=== PATIENT | female | born 1995 | race Caucasian/White ===

== ENCOUNTER 2017-12-29 00:14 | Emergency (ER) | payer BC, SELFPAY ==
[2017-12-29 00:14] VITALS: BP 150/96; PULSE 61; RESP 15; TEMP 36.8; BMI 33.7
--- NOTE | 2017-12-29 00:35 | ED.VISSUMM ---
- ER Visit Summary Date of Service: 12/29/17 Chief Complaint: [Redness and swelling right wrist] History of Present Illness: The patient is a 22 F [presents the emergency department with redness and swelling to the right wrist that started 2 days ago. Patient states that initially she started with what she thought was a pimple to the volar aspect of the wrist. Patient states that she tried to squeeze it and then used tweezers to try to open it up. Patient's noticed increased pain, redness, and swelling. Patient denies any fever. Patient denies any IV drug use.] Physical Examination: [Right wrist-patient has soft tissue swelling to the volar aspect of the ulnar portion of the right wrist. Central area of swelling is excoriated where patient attempted to drain the suspected pimple/abscess. Patient has some diffuse surrounding erythema. No lymphangitic streaking noted. Patient neurovascular intact distally.] Test Results: [None indicated] Emergency Department Course and Treatment: Incision and drainage of the suspected abscess was undertaken by Dr. Bustamante. Area sterilely draped and prepped and using an 11 blade a small incision was made with large amount of purulent debris expressed. Small wick was placed per Dr. Bustamante. Wound initially was anesthetized with lidocaine. Patient was started on Keflex and Bactrim. Clean dressing was applied. [] Treatment Plan: [Patient will be treated with Keflex and Bactrim.] Disposition: [Discharged home in stable condition. Patient advised to follow-up with Dr. Zaid Dumont for a wound check in 3-5 days. Patient to return if increasing pain, redness, swelling, or condition should worsen in any way.] Impression: [Abscess right wrist with incision and drainage] This note was generated with [employer] dictation software. It may contain incorrect words, spelling, and punctuation that were not noted in review of the chart prior to signing ED Disposition - Plan for ED Patient: Chief Complaint: Abscess Referrals: Zaid Dumont MD [Primary Care Provider] -
--- NOTE | 2017-12-29 00:38 | ED.DCSUM_ITS ---
- ER Visit Summary Date of Service: 12/29/17 Chief Complaint: [Redness and swelling right wrist] History of Present Illness: The patient is a 22 F [presents the emergency department with redness and swelling to the right wrist that started 2 days ago. Patient states that initially she started with what she thought was a pimple to the volar aspect of the wrist. Patient states that she tried to squeeze it and then used tweezers to try to open it up. Patient's noticed increased pain, redness, and swelling. Patient denies any fever. Patient denies any IV drug use.] Physical Examination: [Right wrist-patient has soft tissue swelling to the volar aspect of the ulnar portion of the right wrist. Central area of swelling is excoriated where patient attempted to drain the suspected pimple/abscess. Patient has some diffuse surrounding erythema. No lymphangitic streaking noted. Patient neurovascular intact distally.] Test Results: [None indicated] Emergency Department Course and Treatment: Incision and drainage of the suspected abscess was undertaken by Dr. Bustamante. Area sterilely draped and prepped and using an 11 blade a small incision was made with large amount of purulent debris expressed. Small wick was placed per Dr. Bustamante. Wound initially was anesthetized with lidocaine. Patient was started on Keflex and Bactrim. Clean dressing was applied. [] Treatment Plan: [Patient will be treated with Keflex and Bactrim.] Disposition: [Discharged home in stable condition. Patient advised to follow- up with Dr. Zaid Dumont for a wound check in 3-5 days. Patient to return if increasing pain, redness, swelling, or condition should worsen in any way.] Impression: [Abscess right wrist with incision and drainage] This note was generated with [employer] dictation software. It may contain incorrect words, spelling, and punctuation that were not noted in review of the chart prior to signing ED Disposition - Plan for ED Patient: Chief Complaint: Abscess Referrals: Zaid Dumont MD [Primary Care Provider] -
--- NOTE | 2017-12-29 00:38 | ED.DEP ---
ED Disposition - Plan for ED Patient: Chief Complaint: Abscess Instructions: ED Abscess IandD Prescriptions: Cephalexin [Keflex] 500 mg PO Q6 #40 cap Smz/Tmp Ds [Bactrim Ds] 1 tab PO BID #20 tab Referrals: Zaid Dumont MD [Primary Care Provider] - 3-5 Days
[2017-12-29] MEDS: Cephalexin 250 MG Capsule 500 MG PO (01:24)
[2017-12-29] MEDS: Smz/Tmp Ds Tablet 1 TABLET PO (01:25)
[2017-12-29] MEDS: HYDROcodone Bitartrate/Apap 5/325 Tablet PO (01:25)
== END 2017-12-29 01:37 | disposition home or self-care (01) ==
LOC: ED 01:01
PROVIDERS: Emergency Provider Emergency Medicine; Family Provider Family Medicine; PCP Family Medicine
DX: L02.413 Cutaneous abscess of right upper limb (principal)
CPT/HCPCS: 99283

== ENCOUNTER → 2018-10-01 12:02 | Outpatient (CLI) | payer BC, SELFPAY ==
[2018-10-01 14:41] LABS: Pregnancy, Serum, hCG Quali. NEGATIVE Negative (0-9 Nonpreg)
== END ==
PROVIDERS: Family Provider Family Medicine; PCP Family Medicine; Referring Provider Family Medicine; Visit Provider Family Medicine
DX: N91.1 Secondary amenorrhea (principal)
CPT/HCPCS: 36415; 84703

== ENCOUNTER → 2019-07-07 09:56 | Outpatient (CLI) | payer BC, SELFPAY ==
--- NOTE | 2019-07-07 10:00 | RAD_ITS ---
STUDY: X-RAY - ABDOMEN/PELVIS REASON FOR EXAM: Female, 24 years old. patient complains of lower abdominal pain/back pain TECHNIQUE: Lower abdominal back pain COMPARISON: None. FINDINGS: Normal visualized lung bases. There is an unremarkable bowel gas pattern. There is no demonstrated free abdominal air. The visualized liver, spleen and kidneys are grossly normal in size and morphology. Normal soft tissue structures. Normal visualized osseous structures. RAD/Abdomen Single View IMPRESSION: No suspicious intra-abdominal calcifications. Electronically Signed: Madan Mahoney MD (Brooks) at 16:08 EST , Service support ,
[2019-07-07 12:03] LABS: Absolute Lymphocyte Count 2.47 X10^3/uL (0.83-4.51); Absolute Neutrophil Count 5.7 X10^3/uL (2.0-7.7); Basophil# 0.03 X10^3/uL; Basophil% 0.3 % (0-1); Eosinophil# 0.22 X10^3/uL; Eosinophils% 2.3 % (0-5); Hematocrit 44.9 % (37-47); Hemoglobin 15.2 g/dL (12.0-15.0); Lymphocyte # 2.47 X10^3/ul (4.0); Lymphocyte % 26.3 % (19-41); Mean Corp Hgb Conc 33.9 g/dL (32-36); Mean Corpuscular Hgb 29.6 pg (27.0-32.0); Mean Corpuscular Volume 87.4 fL (81-99); Mean Platelet Vol. 10.1 fl (6.2-12.0); Monocyte% 9.6 % (0-10); NRBC Flagged by Analyzer 0 % (0-5); Neutrophil # 5.72 X10^3/uL (2.7-7.7); Neutrophil % 61.1 % (47-70); Platelet Count 256 K/mm3 (150-450); RBC Distribution Width CV 12.3 % (11.6-14.6); RBC Distribution Width SD 39.1 fl (35.1-43.9); Red Blood Count 5.14 M/mm3 (4.2-5.4); White Blood Count 9.4 K/mm3 (4.4-11.0)
[2019-07-07 12:40] LABS: ALB/GLOB Ratio 1.1 RATIO (0.9-2.4); AST(SGOT) 15 U/L (15-37); Alanine Aminotransfer ALT/SGPT 35 U/L (13-56); Albumin, Serum 3.6 g/dL (3.2-5.0); Alkaline Phosphatase 53 U/L (45-117); Anion Gap 7 (5-15); BUN 13 mg/dL (7-18); BUN/Creat Ratio 14.5 RATIO (10-20); Calcium,Total 8.6 mg/dL (8.5-10.1); Chloride 105 mmol/L (98-107); EST Glomerular Filtration Rate 81 mL/min (>60); Est Glom Filt Rate - Afr Amer 98 mL/min (>60); Globulin 3.3 g/dL (2.2-4.2); Glucose 81 mg/dL (74-106); Potassium 3.7 mmol/L (3.5-5.1); Protein, Total 6.9 g/dL (6.4-8.2); Sodium Level 139 mmol/L (136-145)
[2019-07-07 12:47] LABS: Bacteria 0 SEEN /hpf (None Seen); Mucous, Urine 0 SEEN /hpf (<or=2+); Red Blood Cells-Urine 0 SEEN /hpf (0-5); White Blood Cells 0 SEEN /hpf (0-5)
[2019-07-07 13:37] LABS: Color, Urine Yellow (Yellow); Glucose, Dipstick Normal (Normal); Ketone-Dipstick Negative (Negative); Leukocyte Esterase-Dipstick Negative /ul (Negative); Nitrite-Dipstick Negative (Negative); Occult Blood-Urine Negative /ul (Negative); Protein-Dipstick Negative (Negative); Urine Bilirubin Dipstick Negative (Negative); Urine Clarity Sl. Cloudy (Clear); Urine Urobilinogen Normal (Normal)
[2019-07-07 13:50] LABS: Amorphous Sediment 1+ PHOS; Squamous Epithelial Cells - UA 0-5 SEEN /hpf (5-10)
== END ==
PROVIDERS: Family Provider Family Medicine; PCP Family Medicine; Referring Provider Family Medicine; Visit Provider Family Medicine
DX: R10.30 Lower abdominal pain, unspecified (principal); R35.0 Frequency of micturition
CPT/HCPCS: 36415; 74018; 80053; 81001; 85025; 87077; 87086; 87088; 87186

== ENCOUNTER 2019-10-31 09:56 | Emergency (ER) | payer BC, SELFPAY ==
[2019-10-31 09:57] VITALS: BP 117/57; PULSE 79; RESP 17; TEMP 37.1; O2SAT 97; BMI 38.0
--- NOTE | 2019-10-31 10:06 | RAD_ITS ---
STUDY: X-RAY - RIGHT WRIST REASON FOR EXAM: Female, 24 years old. wrist pain after hitting it on a wall yesterday TECHNIQUE: 3 view(s) of the wrist were obtained. COMPARISON: None. FINDINGS: Normal visualized distal radius and ulna. Normal radiocarpal articulation. There is a negative ulnar variance. Normal carpal bones. Normal carpal articulations. Normal carpometacarpal articulation of the thumb. Normal second through fifth carpometacarpal articulations. Normal visualized metacarpal bones. The soft tissue structures are unremarkable. There is no demonstrated acute fracture. RAD/Wrist min 3 Views IMPRESSION: No fracture seen. Electronically Signed: Wale Soto MD at 11:10 EDT , Service support ,
--- NOTE | 2019-10-31 10:19 | ED.VIS.INJ ---
History of Present Illness Chief Complaint: Upper Extremity Injury Informant: Patient Onset: Yesterday Mechanism/Context: Blunt Injury, Fall Quality of Pain: Dull, Aching Location: Right wrist Current Severity: Mild Maximum Severity: Moderate Worsened by: Movement and palpation Relieved by: Rest Associated Symptoms: Negative for: Parasthesias, Weakness, Loss of function, Inability to ambulate, Loss of consciousness Narrative: Patient is a 24-year-old [id number] female who presents with fall on outstretched extremity. She presents with pain right wrist. She localizes pain over the distal radius and ulna. She denies shoulder or elbow pain. She denies pain in her fingers or thumb. She denies paresthesia, anesthesia or motor weakness. She denies any other injury. Prior similar symptoms: No Recent Illness/Hospitalization: No - Past Medical History (1) No significant past medical history Status: Acute Past Medical History - Allergies and Home Meds Allergies/Adverse Reactions: Allergies No Known Allergies Allergy (Verified 10/31/19 09:56) Primary Care Physician: Zaid Garcia MD [Primary Care Provider] - Prior records reviewed: Yes Surgical History: noncontributory Lives: With Family Smoking Status: Never smoker Alcohol: None Drugs: None Review of Systems Musculoskeletal: Reports: Swelling, Extremity Pain. Denies: Myalgias, Arthralgias, Neck pain, Back pain Skin: Denies: Rash, Wounds Neurological: Denies: Weakness, Parasthesia, Numbness Hematologic: Denies: Easy bruising, Easy bleeding Physical Exam Vital Signs/Narrative: Vital Signs Temp Pulse Resp BP Pulse Ox 10/31/19 09:57 98.7 F 79 17 117/57 L 97 Inital Vital Signs reviewed: Yes General: Well nourished, Well developed Head: Normocephalic, Atraumatic Eyes: Perrl, EOMI, - - No subconjunctival hemorrhage noted.. Negative for: Pale conjunctiva, Scleral icterus ENT: No trauma. Negative for: Nasal trauma, Nasal septal hematoma Neck: Nontender, Full ROM Cardiovascular: Regular rate, Regular rhythm, No murmurs Respiratory: No distress, CTA bilaterally Extremeties: There is soft tissue swelling noted right wrist with pain ovation over the distal radius and ulna. There is no pain the patient over the anatomical snuffbox or axial loading of thumb. Median, radial and ulnar function intact. There is no pain the patient over the lateral or medial epicondyle, olecranon process or radial head. There is no pain ovation over the phalanges. There is no pain the patient over the metacarpal bones. Skin: Normal color, No rash Neurological: Alert, Oriented x3, Cranial nerves II-XII grossly intact, Normal Strength, Normal Sensation Psychological: Normal affect, Normal Mood - Glascow Coma Scale Eye Opening: Spontaneous Motor: Obeys Commands Verbal: Oriented Coma Scale Total: 15 Diagnostic/Tx/Re-eval Chest X-Ray - ED: Read by ED Physician - 3 View x-ray of the right wrist was interpreted by me as negative. There is no fracture, subluxation or dislocation. There is no volar fat pad noted. 10/31/19 10:06 Wrist min 3 Views [RAD] Stat - Medical Decision Making X-ray was obtained to evaluate for strain versus contusion versus fracture. ED Disposition - Plan for ED Patient: Disposition: Home or Assisted Living Diagnosis: Contusion of right wrist, initial encounter Instructions: ED Sprain Wrist Referrals: Zaid Garcia MD [Primary Care Provider] - 1 Week if not improving Additional Instructions: 1. Elevate wrist above nose for the next 2 to 3 days. 2. Apply ice 20 to 30 minutes per application 6-8 times a day 3. Take either 4 Advil every 8 hours or 2 Aleve every 12 hours for the next 3 to 5 days for pain.
[2019-10-31 10:30] VITALS: RESP 16
== END 2019-10-31 10:32 | disposition home or self-care (01) ==
LOC: ED 10:25
PROVIDERS: Emergency Provider Emergency Medicine; PCP Family Medicine
DX: S60.211A Contusion of right wrist, initial encounter (principal); W19.XXXA Unspecified fall, initial encounter; Y93.9 Activity, unspecified; Y99.9 Unspecified external cause status
CPT/HCPCS: 73110; 99282

== ENCOUNTER 2019-11-14 16:59 | Emergency (ER) | payer BC, SELFPAY ==
[2019-11-14 17:00] VITALS: BP 147/111; PULSE 92; RESP 16; TEMP 36.4; O2SAT 100; BMI 36.6
--- NOTE | 2019-11-14 17:15 | EKG12_ITS ---
Test Reason : HTN Blood Pressure : / mmHG Vent. Rate : 076 BPM Atrial Rate : 076 BPM P-R Int : 154 ms QRS Dur : 086 ms QT Int : 386 ms P-R-T Axes : 024 044 001 degrees QTc Int : 434 ms Normal sinus rhythm Normal ECG Confirmed by AMBREEN SHEPHERD, NAN ([id number]), desk editor JO-ANN ROIS ([id number]) on 11/16/2019 3:01:10 PM Referred By: CHANDAN Confirmed By:NAN CROOK MD
[2019-11-14 17:17] VITALS: BP 155/96; PULSE 100; RESP 15; O2SAT 97
--- NOTE | 2019-11-14 17:28 | RAD_ITS ---
STUDY: X-RAY CHEST REASON FOR EXAM: Female, 24 years old. CHEST FEELS STRANGE AND BP ELEVATED AT HOME. INTERMITTENT FOR SEVERAL DAYS. TECHNIQUE: Single AP portable view of the chest. COMPARISON: None. FINDINGS: The lungs are clear and expanded. There is no demonstrated pleural abnormality. Normal size heart. Normal mediastinum and parveen. Normal visualized pulmonary arteries. Normal visualized aortic arch and descending thoracic aorta. Normal visualized thoracic spine. Normal visualized ribs, clavicles, and shoulders. There is no demonstrated abnormality of the visualized soft tissue structures of the upper abdomen. RAD/Chest 1 View (Portable) IMPRESSION: Normal x-ray examination of the chest. Electronically Signed: Eduar Warren MD at 19:02 EDT , Service support ,
[2019-11-14 17:32] LABS: Absolute Lymphocyte Count 2.64 X10^3/uL (0.83-4.51); Absolute Neutrophil Count 6.7 X10^3/uL (2.0-7.7); Basophil# 0.04 X10^3/uL; Basophil% 0.4 % (0-1); Eosinophils% 0.9 % (0-5); Hematocrit 45.8 % (37-47); Hemoglobin 15.6 g/dL (12.0-15.0); Lymphocyte # 2.64 X10^3/ul (4.0); Lymphocyte % 24.9 % (19-41); Mean Corp Hgb Conc 34.1 g/dL (32-36); Mean Corpuscular Hgb 29.6 pg (27.0-32.0); Mean Corpuscular Volume 86.9 fL (81-99); Mean Platelet Vol. 9.5 fl (6.2-12.0); Monocyte# 1.09 X10^3/uL; Monocyte% 10.3 % (0-10); NRBC Flagged by Analyzer 0 % (0-5); Neutrophil # 6.69 X10^3/uL (2.7-7.7); Neutrophil % 63.1 % (47-70); Platelet Count 274 K/mm3 (150-450); RBC Distribution Width SD 37.8 fl (35.1-43.9); Red Blood Count 5.27 M/mm3 (4.2-5.4); White Blood Count 10.6 K/mm3 (4.4-11.0)
[2019-11-14 17:41] LABS: Internal QC Validated? YES +Cl - CLEAR BKGD; Pregnancy, Serum, hCG Quali. NEGATIVE Negative
[2019-11-14 17:50] LABS: Anion Gap 8 (5-15); BUN 16 mg/dL (7-18); BUN/Creat Ratio 17.5 RATIO (10-20); Calcium,Total 9.3 mg/dL (8.5-10.1); Chloride 105 mmol/L (98-107); Creatinine, Serum 0.92 mg/dL (0.55-1.02); EST Glomerular Filtration Rate 79 mL/min (>60); Est Glom Filt Rate - Afr Amer 96 mL/min (>60); Estimated Creatinine Clearance 84.11 ml/min; Glucose 98 mg/dL (74-106); Potassium 3.7 mmol/L (3.5-5.1); Sodium Level 140 mmol/L (136-145)
[2019-11-14 17:53] VITALS: BP 141/85; PULSE 77; RESP 17; O2SAT 97
[2019-11-14 18:52] VITALS: BP 146/84; PULSE 87; RESP 19; O2SAT 100
--- NOTE | 2019-11-14 19:09 | ED.DCSUM_ITS ---
- ER Visit Summary Date of Service: 11/14/19 Chief Complaint: Chest pain History of Present Illness: The patient is a 24 F with chest pain for the past 4 days. The pain started out mild and is worsening. It is midsternal and does not radiate. Associated with high blood pressure. Patient has no previous history of high blood pressure. She does not take medications for high blood pressure. Denies any heart history or history of blood clots or leg swelling. Physical Examination: Blood pressure 147/111. Otherwise vitals unremarkable. Alert and oriented. No acute distress. Heart regular. No respiratory distress. Skin appears normal. Calves soft and supple. No edema. Test Results: EKG showed sinus rhythm at a rate of 76. No sign of ischemia or infarction pattern. Hemoglobin 15.6. Chemistry panel normal. Troponin normal. test negative. Chest x-ray normal. Emergency Department Course and Treatment: Patient has what sounds like atypical chest pain. She is low risk for any cardiac disease. PER C-. Nothing to suggest aortic disease. Her work-up was reassuring. Repeat blood pressure went from 155/96-146/84. There is no indication to start blood pressure medications at this time, but she was advised that she may need outpatient medication and will follow-up with primary care. There is no indication for hospitalization for cardiac work-up or any other further emergent process. Outpatient follow- up. Disposition: Discharged Impression: Atypical chest pain, hypertension to be established This note was generated with [employer] software. It may contain incorrect words, spelling, and punctuation that were not noted in review of the chart prior to signing ED Disposition - Plan for ED Patient: Referrals: Zaid Garcia MD [Primary Care Provider] -
--- NOTE | 2019-11-14 19:11 | ED.DEP ---
ED Disposition - Plan for ED Patient: Instructions: ED HBP No Tx Referrals: Zaid Garcia MD [Primary Care Provider] -
[2019-11-14 19:16] VITALS: BP 156/99; PULSE 82; RESP 19; O2SAT 99
== END 2019-11-14 19:16 | disposition home or self-care (01) ==
PROVIDERS: Emergency Provider Emergency Medicine; PCP Family Medicine
DX: R07.89 Other chest pain (principal); I10 Essential (primary) hypertension
CPT/HCPCS: 71045; 80048; 84484; 84703; 85025; 93005; 99283; A4216

== ENCOUNTER → 2019-12-21 16:51 | Outpatient (CLI) | payer BC, SELFPAY ==
[2019-12-21 18:41] LABS: Thyroid Stim Hormone (TSH) 1.94 uIU/mL (0.358-3.74)
== END ==
PROVIDERS: PCP Family Medicine; Referring Provider Family Medicine; Visit Provider Family Medicine
DX: F32.9 Major depressive disorder, single episode, unspecified (principal)
CPT/HCPCS: 36415; 84443

== ENCOUNTER → 2020-02-11 | Outpatient (CLI) | payer BC, SELFPAY | END | disposition home or self-care (01) | PROVIDERS: PCP Family Medicine; Visit Provider Family Medicine | DX: Z20.828 Contact with and (suspected) exposure to other viral communicable diseases (principal) | CPT/HCPCS: 87635; U0003 ==

== ENCOUNTER → 2020-04-20 | Outpatient (CLI) | payer BC, SELFPAY | END | disposition home or self-care (01) | LOC: MFPLAB 10:51 → LABSPEC 10:53 | PROVIDERS: PCP Family Medicine; Referring Provider Family Medicine; Visit Provider Family Medicine | DX: J06.9 Acute upper respiratory infection, unspecified (principal) | CPT/HCPCS: 87635; U0003 ==

== ENCOUNTER → 2020-05-25 | Outpatient (CLI) | payer BC, SELFPAY | END | disposition home or self-care (01) | LOC: LABSPEC 15:24 | PROVIDERS: PCP Family Medicine; Visit Provider Nurse Practitioner Adult Health | DX: R05 Cough (principal); Z20.828 Contact with and (suspected) exposure to other viral communicable diseases | CPT/HCPCS: 87633; 87635; U0003 ==

== ENCOUNTER → 2020-06-16 18:07 | Outpatient (CLI) | payer BC, SELFPAY ==
--- NOTE | 2020-06-16 18:19 | CT_ITS ---
STUDY: CT ABDOMEN AND PELVIS WITHOUT CONTRAST REASON FOR EXAM: Female, 25 years old. Left flank pain radiating into the left groin. Microscopic hematuria. RADIATION DOSAGE (If Supplied By Facility): CTDIvol = ( 14.80 ) mGy, DLP = ( 777.85 ) mGycm TECHNIQUE: Transaxial images were obtained from the dome of the diaphragm to the symphysis pubis without oral contrast, and without intravenous contrast. Sagittal and coronal images were reconstructed. Individualized dose optimization techniques were used for this CT. COMPARISON: 11/19/2014. FINDINGS: The visualized lung bases are unremarkable. The visualized portions of the heart are within normal limits. Normal liver. Normal gallbladder and extrahepatic biliary system. The spleen is borderline enlarged but without mass. Normal pancreas. Normal bilateral adrenal glands. There is a 3 mm calcification in the upper pole of the otherwise normal right kidney. Normal left kidney. Normal bilateral ureters. Normal visualized stomach. Normal small intestine. Normal colon. The appendix is visualized and appears normal. Normal abdominal aorta. Normal inferior vena cava. Normal retroperitoneum. Normal urinary bladder. Internal uterus and ovaries. There is no pelvic lymphadenopathy. No free air or free fluid is seen within the peritoneal cavity. Normal abdominal wall. Normal osseous structures. CT/Abdomen/Pelvis without Cont IMPRESSION: 1. Nonobstructing right renal calculus. There is no other evidence of renal, ureteral or urinary bladder abnormality. 2. Borderline splenomegaly. 3. Otherwise normal CT of the abdomen and pelvis. Electronically Signed: Oc Daniels DO at 19:07 EST Tel [phone], Service support ,
== END ==
PROVIDERS: PCP Family Medicine; Visit Provider Family Medicine
DX: R10.9 Unspecified abdominal pain (principal)
CPT/HCPCS: 74176

== ENCOUNTER → 2020-06-17 | Outpatient (CLI) | payer BC, SELFPAY | END | disposition home or self-care (01) | LOC: LABSPEC 10:38 | PROVIDERS: PCP Family Medicine; Referring Provider Family Medicine; Visit Provider Family Medicine | DX: R10.9 Unspecified abdominal pain (principal) | CPT/HCPCS: 87077; 87086; 87088; 87186 ==

== ENCOUNTER → 2020-07-11 13:35 | Outpatient (CLI) | payer BC, SELFPAY | PROVIDERS: PCP Family Medicine; Visit Provider Family Medicine | DX: Z20.822 Contact with and (suspected) exposure to COVID-19 (principal) | CPT/HCPCS: 87635; U0005; U0003 ==

== ENCOUNTER 2020-11-08 18:41 | Emergency (ER) | payer BC, SELFPAY ==
[2020-11-08 18:42] VITALS: BP 165/104; PULSE 88; RESP 16; TEMP 36.3; BMI 39.9
--- NOTE | 2020-11-08 20:44 | EDS_ITS ---
HPI History of Present Illness Chief Complaint: Eye Problem Informant: patient Onset/Context/Timing Location: Left Eye Onset: Today Context: Sudden Onset Timing: Continuous Current Severity: Severe Worsened by: Concern that the antibiotic drops she was prescribed made it worse Relieved by: Nothing Associated Symptoms Associated Symptoms - Eyes: Burning, Pain and Redness Visual Changes: left: Blurred vision History of injury: No Visual correction: Corrective contact lenses (Patient left her contacts in for 2 days. She does not have extended wear contacts.) Narrative Narrative: Patient is a 25-year-old woman who presents because of eye pain. She did not remove her contacts for 2 days. She informed that she saw a paint mixer machine who prescribed contact lenses. She states she called the urgent care. She states she was called in medicine. She states she had increased pain after instilling 1 drop in the left eye. She does not know the name of the medicine. Her significant other/ went home to get the name of the medicine. Patient denies photophobia. She does complain of blurred vision which improves with blinking. She also reports redness to the eye. She has no other complaints. Prior similar symptoms: No Recent Illness/Hospitalization: No [facility] Medical History (Updated 11/08/20 @ 20:[address] Cornelio Bustamante MD) Anxiety no medical history Home Medications escitalopram oxalate 10 mg PO DAILY 11/08/20 [History Last Taken Unknown] Allergy/AdvReac Type Severity Reaction Status Date / Time No Known Allergies Allergy Verified 11/08/20 18:44 no significant family history no surgical history Social History (Updated 11/08/20 @ 20:[address] Cornelio Bustamante MD) Smoking Status: Never smoker alcohol intake: current alcohol intake frequency: a few times a month substance use type: does not use ROS ROS ED Constitutional Constitutional ED: Denies chills, fever(s), subjective or sweats Eyes Eyes: Reports blurry vision and change in vision; Denies diplopia ENT ENT ED: Denies ear pain, rhinorrhea or sore throat Gastrointestinal Gastrointestinal: Denies nausea or vomiting Neurologic Neurologic: Denies headache(s) Hematologic/Lymphatic Hematologic/Lymphatic: Denies easy bleeding or easy bruising EXAM Physical Exam Const Vital Signs: 11/08/20 18:42 Temperature 97.4 F L Temperature Source Temporal Pulse Rate 88 Respiratory Rate 16 Blood Pressure 165/104 H Blood Pressure Mean 124 Positive well nourished, well developed and obese General Appearance ED: well developed Nutritional Appearance: obese HEENT atraumatic Eyes General Eye ED: Yes normal light reflex; Negative for enophthalmos, exophthalmos, proptosis, pale conjunctiva or scleral icterus Visual Acuity: visual acuity right eye 20 and visual acuity left eye 200 Alignment: alignment normal Periorbital: periorbital findings normal Eyelid: eyelids normal Conjunctiva: Negative for conjunctiva normal and conjunctiva abnormal left Details: injection Sclera: sclera normal Cornea: cornea abnormal Positive for left Cornea - Left Eye: Positive for ulceration Details: Positive for at clock position (5:00 1 mm from the limbal border circular consistent with injury due to contact lens) Pupil: PERRL and accommodation reflex normal EOM: EOM abnormal; Negative for nystagmus Direct Ophthalmoscopy: anterior chamber normal and No photophobia Slit Lamp: slit lamp exam performed with fluorescein, lids/lashes/lacrimal sys tem normal appearing, conjunctiva/sclera diffuse conjunctiva injection, foreign body, discharge and chemosis and cornea ulcers (Circular consistent with injury due to contact) Neck no lymphadenopathy, supple and no JVD Resp normal respiratory effort Cardio regular rate and regular rhythm Neuro oriented x3 and CN's II-XII intact bilaterally Sensorium / Orientation: alert Skin no wounds Lesions: no lesions Rashes: no rashes MDM MDM MDM Narrative Medical decision making narrative: Concern patient have a allergic reaction to the drops she was prescribed. After reviewing the medication she received it was noted she is on a quinolone. Discharge Plan Triage Chief Complaint: Eye Problem ED Provider: Cornelio Bustamante Dx/Rx/DC Orders Clinical Impression: Corneal ulcer of left eye Instructions: ED Corneal Ulcer Prescriptions: No Action escitalopram oxalate 10 mg Tablet 10 mg PO DAILY RF: 0 Primary Care Provider: Zaid Garcia Referrals: Zaid Garcia MD [Primary Care Provider] - Uche Ji MD [STAFF PHYSICIAN] - 1 Day for another exam Activity Restrictions/Additional Instructions: Instill 1 drop of the antibiotic drop every 1-2 hours while awake until you go to bed this evening. Go to Dr. Ji's office in the morning, 8 AM for repeat examination Disposition Disposition: Home, self care
[2020-11-08] MEDS: Fluorescein 1 MG STRIP 1 STRIP LEFT EYE (20:45)
[2020-11-08] MEDS: Tetracaine 0.5% Ophthalmic Bottle 1 DRP LEFT EYE (20:45)
== END 2020-11-08 21:11 | disposition home or self-care (01) ==
PROVIDERS: Emergency Provider Emergency Medicine; PCP Family Medicine
DX: H16.002 Unspecified corneal ulcer, left eye (principal); F41.9 Anxiety disorder, unspecified; E66.9 Obesity, unspecified; Z79.899 Other long term (current) drug therapy
CPT/HCPCS: 99283

== ENCOUNTER 2021-10-17 15:12 | Outpatient (CLI) | payer BC, SELFPAY ==
--- NOTE | 2021-10-17 15:14 | US_ITS ---
STUDY: FIRST TRIMESTER OBSTETRICAL ULTRASOUND REASON FOR EXAM: Female, 26 years old. Vaginal bleeding. TECHNIQUE: Transvaginal US was obtained to better visualized the ovaries. TECHNICAL QUALITY: Adequate. PRIOR ULTRASOUND: None. FINDINGS: There is visualization of a single gestational sac in a normal intrauterine position. The mean sac diameter (MSD) measures 33 mm, indicating an estimated gestational age (EGA) of 8 weeks, 3 days. The gestational sac shape is within normal limits. There is a visualized yolk sac. The yolk sac measures 4 mm. The placenta is non-visualized. Due to early gestation, the placenta is not seen. There is visualization of a live embryo. The crown-rump length (CRL) measures 15 mm, indicating an estimated gestational age (EGA) of 7 weeks, 5 days. There is demonstrated cardiac activity with a heart rate of 150 bpm. The estimated gestation age (EGA) by LMP is 7 weeks, 4 days. The estimated date of delivery (ALLA) by LMP is 06.01.22. The estimated gestation age (EGA) by US is 8 weeks, 0 days. The estimated date of delivery (ALLA) by US is 05.29.22. The uterus measures 10.8 x 7.1 cm. There is no demonstrated uterine fibroid. The cervix is closed. The right ovary measures in cm: 4.7 x 3.4. There is 20mm right ovarian cyst. There is no visualized right adnexal mass or complex lesion. The left ovary measures 3.9 x 2.2 cm. There is no left ovarian cyst. There is no visualized left adnexal mass or complex lesion. There is no fluid in the cul de sac. US/Transvaginal w/Preg US IMPRESSION: There is a single live intrauterine with a heart rate of 150 bpm. The estimated gestation age (EGA) by US is 8 weeks, 0 days. The estimated date of delivery (ALLA) by US is 05.29.22. Electronically Signed: Lopez Felder MD at 18:32 EDT ,
== END 2021-10-17 23:59 | disposition home or self-care (01) ==
LOC: US 15:12
PROVIDERS: PCP Family Medicine; Visit Provider Family Medicine
DX: O46.91 Antepartum hemorrhage, unspecified, first trimester (principal); Z3A.08 8 weeks gestation of pregnancy
CPT/HCPCS: 76817

== ENCOUNTER → 2021-11-07 | Outpatient (CLI) | payer BC, SELFPAY ==
[2021-11-07 16:10] LABS: Absolute Lymphocyte Count 2.14 X10^3/uL (0.83-4.51); Basophil# 0.02 X10^3/uL; Basophil% 0.2 % (0-1); Eosinophil# 0.11 X10^3/uL; Eosinophils% 1.1 % (0-5); Hematocrit 38.4 % (37-47); Hemoglobin 13.2 g/dL (12.0-15.0); Lymphocyte # 2.14 X10^3/ul (0.83-4.51); Lymphocyte % 21.1 % (19-41); Mean Corp Hgb Conc 34.4 g/dL (32-36); Mean Corpuscular Hgb 29.6 pg (27.0-32.0); Mean Corpuscular Volume 86.1 fL (81-99); Mean Platelet Vol. 9.7 fl (6.2-12.0); Monocyte% 7.9 % (0-10); NRBC Flagged by Analyzer 0 % (0-5); Neutrophil # 7.03 X10^3/uL (2.7-7.7); Neutrophil % 69.2 % (47-70); Platelet Count 210 K/mm3 (150-450); RBC Distribution Width CV 13.4 % (11.6-14.6); RBC Distribution Width SD 41.9 fl (35.1-43.9); Red Blood Count 4.46 M/mm3 (4.2-5.4); White Blood Count 10.2 K/mm3 (4.4-11.0)
[2021-11-07 16:45] LABS: Glucose Challenge Gest 1H 50g 109 mg/dL (70-140)
[2021-11-07 16:58] LABS: NATERA MAILED SPECIMEN
[2021-11-08 09:27] LABS: HIV - WCH Non-Reactive (Nonreactive); Hepatitis B Surface Antigen Non-Reactive (Nonreactive); Hepatitis C Antibody Non-Reactive (Nonreactive); Rubella IgG Reactive (Nonreactive); Syphilis Antibodies Non-reactive
== END | disposition home or self-care (01) ==
LOC: PAVLAB 15:09
PROVIDERS: Referring Provider Obstetrics & Gynecology; Visit Provider Obstetrics & Gynecology
DX: Z34.00 Encounter for supervision of normal first pregnancy, unspecified trimester (principal)
CPT/HCPCS: 36415; 82950; 85025; 86703; 86762; 86780; 86803; 86850; 86900; 86901; 87340

== ENCOUNTER → 2021-11-07 | Outpatient (CLI) | payer BC, SELFPAY ==
[2021-11-07 18:30] LABS: Amphetamine Urine VISTA NEGATIVE (<1000 ng/mL); Barbiturate Urine VISTA NEGATIVE (< 200 ng/mL); Benzodiazepine Urine VISTA NEGATIVE (< 200 ng/mL); Cocaine Urine VISTA NEGATIVE (< 300 ng/mL); Ecstacy Urine VISTA NEGATIVE (< 500 ng/mL); Methadone Urine VISTA NEGATIVE (< 300 ng/mL); PCP Urine VISTA NEGATIVE (< 25 ng/mL); THC Urine VISTA NEGATIVE (< 50 ng/mL); Vista UDS pH Range 6
[2021-11-10 00:07] LABS: Chlamydia By Nucleic Acid AMP Negative (Negative)
[2021-11-10 08:39] LABS: Gonococcus By Nucleic Acid AMP Negative (Negative)
== END | disposition home or self-care (01) ==
LOC: LABSPEC 16:19
PROVIDERS: Referring Provider Obstetrics & Gynecology; Visit Provider Obstetrics & Gynecology
DX: Z34.00 Encounter for supervision of normal first pregnancy, unspecified trimester (principal)
CPT/HCPCS: 80307; 87077; 87086; 87088; 87186; 87491; 87591

== ENCOUNTER → 2022-01-16 | Outpatient (CLI) | payer BC, SELFPAY ==
--- NOTE | 2022-01-16 12:24 | US_ITS ---
STUDY: SECOND AND THIRD TRIMESTER OBSTETRICAL ULTRASOUND REASON FOR EXAM: Female, 26 years old . anatomy. LMP: 08/25/2021 TECHNIQUE: Transabdominal TECHNICAL QUALITY: Adequate. PRIOR ULTRASOUND: Comparison is made with prior study dated 10/17/2021. FINDINGS: There is a single intrauterine fetus. The fetus is in a breech presentation. There is demonstrated cardiac activity with a heart rate of 138 bpm. There is a normal amniotic fluid volume. The largest amniotic fluid pocket measures 3.4 cm x 3.4 cm. The amniotic fluid index (URBAN) is within normal limits. The placenta is posterior in location and is not low lying. There are Grade 0 placental changes. The cervix measures 4.4 cm in length. The adnexal regions are not visualized. BIOMETRY: BPD: 4.9 cm: 20 weeks, 5 days HC: 19.08 cm: 21 weeks, 2 days AC: 16.23 cm: 21 weeks, 2 days FL: 3.55 cm: 21 weeks, 1 days CI: 73.6% FL/BPD: 72.4% FL/HC: FL/AC: 21.9% HC/AC: 1.18 age by current US: 21 weeks, 1 days. ALLA by current US: 05/28/2022. Estimated weight: 409 grams, +/- 61 grams, 78.5 %. age by prior US: 21 weeks, 0 days. ALLA by prior US: 05/29/2022. Age by LMP: 20 weeks, 4 days. ALLA by LMP: 06/01/2022. ANATOMY: Gender: Male Cranium: Normal lateral ventricles. Normal choroid plexus. Normal cerebellum. Normal cisterna magna. Normal face, nose and lips. Chest: Normal 4-chamber heart. Abdomen/Pelvis: Normal diaphragm. Normal stomach. Normal abdominal wall. Normal cord insertion. Normal 3 vessel cord. Normal kidneys. Normal bladder. Spine: Normal cervical spine. Normal thoracic spine. Normal lumbar spine. Normal sacrum. Extremities: Normal bilateral upper extremities. Normal bilateral lower extremities. US/OB Anatomy Scan IMPRESSION: Single live intrauterine gestation with mean gestational age of 21 weeks. The measurements obtained today fall within the normal expected range. Electronically Signed: Bryan Link MD at 9:49 EDT ,
== END | disposition home or self-care (01) ==
LOC: OPUS 12:22
PROVIDERS: Referring Provider Obstetrics & Gynecology; Visit Provider Obstetrics & Gynecology
DX: Z34.02 Encounter for supervision of normal first pregnancy, second trimester (principal); Z3A.21 21 weeks gestation of pregnancy
CPT/HCPCS: 76805; 76817

== ENCOUNTER → 2022-02-23 | Outpatient (CLI) | payer BC, SELFPAY ==
[2022-02-23 14:31] LABS: Absolute Lymphocyte Count 2.13 X10^3/uL (0.83-4.51); Absolute Neutrophil Count 8.5 X10^3/uL (2.0-7.7); Basophil# 0.03 X10^3/uL; Basophil% 0.3 % (0-1); Eosinophil# 0.14 X10^3/uL; Eosinophils% 1.2 % (0-5); Hematocrit 36.6 % (37-47); Hemoglobin 12.3 g/dL (12.0-15.0); Lymphocyte # 2.13 X10^3/ul (0.83-4.51); Lymphocyte % 18.3 % (19-41); Mean Corp Hgb Conc 33.6 g/dL (32-36); Mean Corpuscular Hgb 30.1 pg (27.0-32.0); Mean Corpuscular Volume 89.7 fL (81-99); Mean Platelet Vol. 10.2 fl (6.2-12.0); Monocyte# 0.75 X10^3/uL; Monocyte% 6.4 % (0-10); NRBC Flagged by Analyzer 0 % (0-5); Neutrophil # 8.45 X10^3/uL (2.7-7.7); Neutrophil % 72.4 % (47-70); Platelet Count 197 K/mm3 (150-450); RBC Distribution Width CV 14.5 % (11.6-14.6); RBC Distribution Width SD 46.9 fl (35.1-43.9); Red Blood Count 4.08 M/mm3 (4.2-5.4); White Blood Count 11.7 K/mm3 (4.4-11.0)
[2022-02-23 14:58] LABS: Glucose Challenge Gest 1H 50g 130 mg/dL (70-140)
== END | disposition home or self-care (01) ==
LOC: LAB 13:16
PROVIDERS: Referring Provider Nurse Practitioner Women's Health; Visit Provider Nurse Practitioner Women's Health
DX: Z34.90 Encounter for supervision of normal pregnancy, unspecified, unspecified trimester (principal)
CPT/HCPCS: 36415; 82950; 85025

== ENCOUNTER 2022-03-22 15:12 | Outpatient (CLI) | payer BC, SELFPAY ==
[2022-03-22 15:28] VITALS: BMI 46.3
[2022-03-22 15:29] VITALS: TEMP 37.1; O2SAT 98
[2022-03-22 15:37] VITALS: BP 127/60; PULSE 94
[2022-03-22 16:13] LABS: ROM Internal Control Test YES-OK TO RESULT pt. (Internal QC); ROM Patient Test Negative (Negative)
--- NOTE | 2022-03-22 16:59 | OB.TRI.PN ---
Progress Notes Progress Note: Patient presents for triage evaluation secondary to possible ROM FHT: 140 Moderate variability reactive no decelerations category I tracing [place]: no regular Contractions Assessment and plan: intact membranes no labor Reactive NST, reassuring maternal and status patient discharged to home to follow-up as scheduled. See problem list details for additional plan information. Laboratory Studies: Laboratory Tests 03/22/22 Range/Units 15:40 Vag Amniotic Fld Detect Negative (Negative) Charges/Coding Procedures Urinary/Genital [id number]: [id number] non-stress test Interp
--- NOTE | 2022-03-22 17:01 | NURSING ---
Keep already scheduled apt for 03/30/2022
== END 2022-03-22 17:05 | disposition home or self-care (01) ==
LOC: WPOUT 15:15 → WP 15:15
PROVIDERS: Referring Provider Obstetrics & Gynecology; Visit Provider Obstetrics & Gynecology
DX: Z34.90 Encounter for supervision of normal pregnancy, unspecified, unspecified trimester (principal)
CPT/HCPCS: 59025; 59050; 84112; 99218; G0378

== ENCOUNTER → 2022-03-30 | Outpatient (CLI) | payer BC, SELFPAY ==
[2022-03-30 17:03] LABS: T4 Free Direct 0.91 ng/dL (0.76-1.46); Thyroid Stim Hormone (TSH) 2.59 uIU/mL (0.358-3.74)
== END | disposition home or self-care (01) ==
LOC: LAB 16:04
PROVIDERS: Referring Provider Obstetrics & Gynecology; Visit Provider Obstetrics & Gynecology
DX: O99.210 Obesity complicating pregnancy, unspecified trimester (principal); E66.9 Obesity, unspecified; Z13.29 Encounter for screening for other suspected endocrine disorder; Z3A.00 Weeks of gestation of pregnancy not specified
CPT/HCPCS: 36415; 84439; 84443

== ENCOUNTER → 2022-04-06 | Outpatient (CLI) | payer BC, SELFPAY ==
--- NOTE | 2022-04-06 13:16 | US_ITS ---
STUDY: SECOND AND THIRD TRIMESTER OBSTETRICAL ULTRASOUND REASON FOR EXAM: Female, 27 years old growth LMP: 08/25/2021. TECHNIQUE: Transabdominal TECHNICAL QUALITY: Limited. Examination limited due to obesity. PRIOR ULTRASOUND: Comparison is made with prior examination dated 01/16/2022. FINDINGS: There is a single intrauterine fetus. The fetus is in a cephalic presentation. There is demonstrated cardiac activity with a heart rate of 136 bpm. There is a normal amniotic fluid volume. The largest amniotic fluid pocket measures 4.9 cm. The amniotic fluid index (URBAN) is 10.4 cm. The placenta is fundal and posterior in location. There are Grade 1 placental changes. The cervix measures 4.7 cm in length. The adnexal regions are not visualized. BIOMETRY: BPD: 8.48 cm: 34 weeks, 1 days HC: 31.18 cm: 34 weeks, 6 days AC: 33.68 cm: 37 weeks, 4 days FL: 6.36 cm: 32 weeks, 6 days CI: 81% FL/BPD: 75% FL/HC: FL/AC: 19% HC/AC: 0.93 age by current US: 34 weeks, 1 days. ALLA by current US: 05/17/2022. Estimated weight: 2794 grams, +/- 490 grams, 99 %. age by prior US: 32 weeks, 3 days. ALLA by prior US: 05/28/2022. Age by LMP: 32 weeks, 0 days. ALLA by LMP: 06/01/2022. US/OB Limited With Biometrics IMPRESSION: Single live uterine gestation with a mean gestational age of 32 weeks and 3 days. Today''s measurements places the fetus in the 99th percentile. Electronically Signed: Bryan Link MD at 15:04 EDT ,
== END | disposition home or self-care (01) ==
LOC: OPUS 13:15
PROVIDERS: PCP Family Medicine; Visit Provider Obstetrics & Gynecology
DX: Z34.03 Encounter for supervision of normal first pregnancy, third trimester (principal); Z3A.34 34 weeks gestation of pregnancy
CPT/HCPCS: 76816

== ENCOUNTER 2022-04-12 08:10 | Outpatient (CLI) | payer BC, SELFPAY ==
[2022-04-12 08:37] VITALS: BMI 46.6
[2022-04-12 08:42] VITALS: BP 121/59; PULSE 92; TEMP 36.8
--- NOTE | 2022-04-16 02:32 | OB.TRI.PN ---
Progress Notes Date of Service: 04/12/22 Progress Note: Patient presents for triage evaluation secondary to decreased movement1 FHT: 125 Moderate variability reactive no decelerations category I tracing [place]: no regular Contractions Assessment and plan: decreased movement Reactive NST, reassuring maternal and status patient discharged to home to follow-up as scheduled. See problem list details for additional plan information. Charges/Coding Procedures Urinary/Genital [id number]: 20489-24 non-stress test Interp Assessment & Plan (1) Decreased movements in third trimester: COMMENT: NST in triage 04/12
== END 2022-04-12 10:30 | disposition home or self-care (01) ==
LOC: WPOUT 08:18 → WP 08:18
PROVIDERS: PCP Family Medicine; Referring Provider Obstetrics & Gynecology; Visit Provider Obstetrics & Gynecology
DX: O36.8130 Decreased fetal movements, third trimester, not applicable or unspecified (principal); Z79.899 Other long term (current) drug therapy; Z3A.00 Weeks of gestation of pregnancy not specified
CPT/HCPCS: 59025; 59050; 99218; G0378

== ENCOUNTER → 2022-05-04 | Outpatient (CLI) | payer BC, SELFPAY ==
--- NOTE | 2022-05-04 13:20 | US_ITS ---
STUDY: SECOND AND THIRD TRIMESTER OBSTETRICAL ULTRASOUND REASON FOR EXAM: Female, 27 years old growth LMP: 08/25/2021. TECHNIQUE: Transabdominal TECHNICAL QUALITY: Adequate. PRIOR ULTRASOUND: Comparison is made with prior study dated 04/06/2022. FINDINGS: There is a single intrauterine fetus. The fetus is in a cephalic presentation. There is demonstrated cardiac activity with a heart rate of 132 bpm. There is a normal amniotic fluid volume. The largest amniotic fluid pocket measures 7.2 cm. The amniotic fluid index (URBAN) is 12.0 cm. The placenta is fundal and posterior in location. There are Grade 2 placental changes. The cervix measures 3.5 cm in length. The adnexal regions are not visualized. BIOMETRY: BPD: 9.45 cm: 38 weeks, 4 days HC: 33.5 cm: 38 weeks, 2 days AC: 38.5 cm: Off the chart. FL: 7.41 cm: 37 weeks, 6 days CI: 83% FL/BPD: 78% FL/HC: FL/AC: 19% HC/AC: 0.87 age by current US: 38 weeks, 1 days. ALLA by current US: 05/17/2022. Estimated weight: 4226 grams, +/- 634 grams, 99 %. age by prior US: 38 weeks, 1 days. ALLA by prior US: 05/17/2020. Age by LMP: 36 weeks, 0 days. ALLA by LMP: 06/01/2022. US/OB Limited With Biometrics IMPRESSION: Single live intrauterine gestation with a mean gestational age of 38 weeks and 1 day. The measurements obtained today following thinned and the 99th percentile. Electronically Signed: Bryan Link MD at 13:52 EDT ,
[2022-05-04 18:05] LABS: Glucose Challenge Gest 1H 50g 168 mg/dL (70-140)
== END | disposition home or self-care (01) ==
PROVIDERS: PCP Family Medicine; Referring Provider Obstetrics & Gynecology; Visit Provider Obstetrics & Gynecology
DX: Z34.93 Encounter for supervision of normal pregnancy, unspecified, third trimester (principal); Z3A.36 36 weeks gestation of pregnancy
CPT/HCPCS: 36415; 76816; 82950; 87081

== ENCOUNTER → 2022-05-09 | Outpatient (CLI) | payer BC, SELFPAY ==
[2022-05-09 11:17] LABS: Glucose GTT-Gestation. Fasting 89 mg/dL (<105)
[2022-05-09 12:35] LABS: Glucose GTT-Gestational 1 Hr 222 mg/dL (<190)
[2022-05-09 13:18] LABS: Glucose GTT-Gestational 2 Hr 200 mg/dL (<165)
[2022-05-09 13:54] LABS: Glucose GTT-Gestational 3 Hr 88 L (<145)
== END | disposition home or self-care (01) ==
LOC: LAB 09:45
PROVIDERS: PCP Family Medicine; Visit Provider Obstetrics & Gynecology
DX: Z13.1 Encounter for screening for diabetes mellitus (principal)
CPT/HCPCS: 36415; 82951; 82952

== ENCOUNTER → 2022-05-11 | Outpatient (CLI) | payer BC, SELFPAY ==
--- NOTE | 2022-05-11 14:20 | US_ITS ---
STUDY: OBSTETRICAL ULTRASOUND - BIOPHYSICAL PROFILE REASON FOR EXAM: Female, 27 years old obesity in LMP: 08/25/2021. PRIOR ULTRASOUND: Comparison is made with prior study dated 05/04/2022. TECHNIQUE: Transabdominal TECHNICAL QUALITY: Adequate. FINDINGS: There is a single intrauterine fetus. The fetus is in a cephalic presentation. There is demonstrated cardiac activity with a heart rate of 136 bpm. There is a normal amniotic fluid volume. The largest amniotic fluid pocket measures 5.9 cm x 1.7 cm. The amniotic fluid index (URBAN) is 16.9 cm. The placenta is fundal and posterior in location. There are Grade 2 placental changes. Age by LMP: 37 weeks, 0 days. ALLA by LMP: 06/01/2022. age by prior US: 39 weeks, 1 days. ALLA by prior US: 05/17/2022. BIOPHYSICAL PROFILE: Breathing Movements (FBM): 2 Gross Body Movements (GBM): 2 Tone (FT): 2 Amniotic Fluid Volume (AFV): 2 TOTAL SCORE: 8 / 8 US/Biophysical Prof W/O Non Stres IMPRESSION: Normal biophysical profile of 8/8. Electronically Signed: Bryan Link MD at 12:40 EST ,
== END | disposition home or self-care (01) ==
PROVIDERS: PCP Family Medicine; Referring Provider Obstetrics & Gynecology; Visit Provider Obstetrics & Gynecology
DX: O99.213 Obesity complicating pregnancy, third trimester (principal); E66.9 Obesity, unspecified; Z3A.39 39 weeks gestation of pregnancy
CPT/HCPCS: 76819

== ENCOUNTER → 2022-05-18 | Outpatient (CLI) | payer BC, SELFPAY ==
--- NOTE | 2022-05-18 16:00 | US_ITS ---
STUDY: OBSTETRICAL ULTRASOUND - BIOPHYSICAL PROFILE REASON FOR EXAM: Female, 27 years old obesity- well being LMP: PRIOR ULTRASOUND: None. TECHNIQUE: Transabdominal TECHNICAL QUALITY: Adequate. FINDINGS: There is a single intrauterine fetus. The fetus is in a cephalic presentation. There is demonstrated cardiac activity with a heart rate of 129 bpm. There is a normal amniotic fluid volume. The largest amniotic fluid pocket measures 4.8 cm. The amniotic fluid index (URBAN) is 16 cm. The placenta is fundal There are Grade 2 placental changes. Age by LMP: 38 weeks, 0 days. ALLA by LMP: 06/01/2022. BIOPHYSICAL PROFILE: Breathing Movements (FBM): 2 Gross Body Movements (GBM): 2 Tone (FT): 2 Amniotic Fluid Volume (AFV): 2 TOTAL SCORE: 8 / 8 US/Biophysical Prof W/O Non Stres IMPRESSION: Normal biophysical profile of 02/12. Electronically Signed: Gregorio Holliday MD at 17:21 EST ,
== END | disposition home or self-care (01) ==
PROVIDERS: PCP Family Medicine; Referring Provider Obstetrics & Gynecology; Visit Provider Obstetrics & Gynecology
DX: O99.210 Obesity complicating pregnancy, unspecified trimester (principal)
CPT/HCPCS: 76819

== ENCOUNTER 2022-05-21 06:37 | Inpatient (IN) | payer BC, SELFPAY ==
[2022-05-21] VITALS (21 sets, daily range): BP systolic 103–146; BP diastolic 58–88; PULSE 66–104; RESP 14–20; TEMP 36.3–37.2; O2SAT 77–100; BMI 46.5
[2022-05-21] MEDS: Acetaminophen 500 MG Tablet 1000 MG PO ×4 (06:02→23:30)
[2022-05-21] MEDS: Lactated Ringers 1,000 ML 999 ML IV (06:03)
[2022-05-21 06:15] LABS: Color, Urine Yellow (Yellow); Glucose, Dipstick Normal (Normal); Ketone-Dipstick Negative (Negative); Leukocyte Esterase-Dipstick 100 /ul (Negative); Nitrite-Dipstick Negative (Negative); Occult Blood-Urine 250 /ul (Negative); Protein-Dipstick Negative (Negative); Urine Bilirubin Dipstick Negative (Negative); Urine Clarity Clear (Clear); Urine Urobilinogen Normal (Normal)
[2022-05-21 06:19] LABS: Absolute Lymphocyte Count 2.58 X10^3/uL (0.83-4.51); Absolute Neutrophil Count 9.8 X10^3/uL (2.0-7.7); Basophil# 0.04 X10^3/uL; Basophil% 0.3 % (0-1); Eosinophil# 0.14 X10^3/uL; Hematocrit 37.4 % (37-47); Hemoglobin 12.4 g/dL (12.0-15.0); Lymphocyte # 2.58 X10^3/ul (0.83-4.51); Lymphocyte % 18.7 % (19-41); Mean Corp Hgb Conc 33.2 g/dL (32-36); Mean Corpuscular Hgb 29.2 pg (27.0-32.0); Mean Platelet Vol. 9.8 fl (6.2-12.0); Monocyte# 1.07 X10^3/uL; Monocyte% 7.8 % (0-10); NRBC Flagged by Analyzer 0 % (0-5); Neutrophil # 9.83 X10^3/uL (2.7-7.7); Neutrophil % 71.3 % (47-70); Platelet Count 239 K/mm3 (150-450); RBC Distribution Width CV 15.9 % (11.6-14.6); RBC Distribution Width SD 50.1 fl (35.1-43.9); Red Blood Count 4.25 M/mm3 (4.2-5.4); White Blood Count 13.8 K/mm3 (4.4-11.0)
[2022-05-21] MEDS: Lactated Ringers 1,000 ML 150 ML IV (07:05)
--- NOTE | 2022-05-21 07:23 | HP.PCM.OB_ITS ---
HPI - General General Date of Admission: 05/21/22 HPI Narrative MECHELLE JAEGER, is a 27 F who presents IAL made cervical change with regular painful contractions no vb lof admits good fm. she has had newly diagnosed GDM in the last few weeks due to late onset macrosomia over 4500g. Maternal Data Information ALLA Calculator Estimated Delivery Date Method Current WG Current Estimate 06/01/22 LMP (Certain) 38w 3d Other Estimates 05/29/22 Ultrasound #1 38w 6d 05/24/22 Ultrasound #2 39w 4d PFSH PFSH Medical History (Updated 05/21/22 @ 07:[address] Ashley Mullen MD) Anxiety Infertility Superficial varicosities Thyroid disorder Home Medications levothyroxine 50 mcg capsule 100 mcg PO DAILY 10/24/21 [History Last Taken 05/20/22 07:00] prenat.vits,andrea,jcp-dbue-phrly 1 tab PO DAILY 10/24/21 [History Last Taken 05/20/22 17:30] nystatin 100,000 unit/gram topical powder 1 applic topical BID #60 grams 05/16/22 [Rx Last Taken 05/20/22 19:30] Allergy/AdvReac Type Severity Reaction Status Date / Time No Known Allergies Allergy Verified 05/18/22 15:14 Family History Father Diabetes CAD (coronary artery disease) Hypertension Surgical History no surgical history Social History adopted: No household members: spouse current occupational status: employed current occupation: [employer] pets and animals: Yes (avoid litter box) pets and animals: cat(s), dog(s) and fish Smoking Status: Never smoker alcohol intake: current alcohol intake frequency: a few times a month details: not while substance use type: does not use do you feel safe at home: Yes additional social history: Spouse-Jigar History 1 Elective abortions Hx Para 0 Spontaneous abortions Hx # Term Pregnancies Ectopic pregnancies Hx # Pregnancies Multiple births # of living children Visit Details Expected Delivery Route/Plan Labor Preferences- CB/BF classes: [] labor support person: [] labor intervention preferences: [] pain management options preferred: [] cut cord/dad catch: [] : [] PP control planned: [] discussed possible routes of delivery and associated risks: [] special requests: [] Plans Covid status: discussed Flu vaccine: discussed Tdap vaccine: given Rhogam: na LARC form signed: declined movement and labor precautions reviewed. Problem list reviewed and updated with the most current plan of care details and appropriate orders placed. Relevant counseling for the gestational age provided. Continue routine care and follow up unless otherwise noted in visit notes/problem list details OB Flowsheet Initial Weight: Not Recorded Date -?-?-?-?-?-?-?-?-?-?-?-?- EGA Weight BP Urine Prot -?-?-?-?-?-?-?-?-?-?-?-?- Glucose FHR FuHt Pres Dilation -?-?-?-?-?-?-?-?-?-?-?-?- Effaced St Visit Note 11/07/21 -?-?-?-?-?-?-?-?-?-?-?-?- 10w 4d 257 lb 6 oz 138/80 -?-?-?-?-?-?-?-?-?-?-?-?- 147 -?-?-?-?-?-?-?-?-?-?--?-?- JV- there is a o ne week discrepancy with ultrasound today and LMP. however, records show ultrasound at 8 weeks that would make her 11 weeks today. will keep the 8 week ultrasound as alla. 12/08/21 -?-?-?-?-?-?-?-?-?-?-?-?- 15w 0d 263 lb 110/78 -?-?-?-?-?-?-?-?-?-?-?-?- 150 -?-?-?-?-?-?-?-?-?-?-?-?- Sm- no vb crampi ng occcasionally 01/05/22 -?-?-?-?-?-?-?-?-?-?-?-?- 19w 0d 264 lb 2 oz 122/78 Nega tive -?-?-?-?-?-?-?-?-?-?-?-?- Negative 138 -?-?-?-?-?-?-?-?-?-?-?-?- JV- needs anatom y scan with [facility], (ordered late) pt has poison kristopher on arm. rx for vistaril. continue steroid cream. 01/31/22 -?-?-?-?-?-?-?-?-?-?-?-?- 22w 5d 268 lb 4 oz 148/70 124/70 Trace -?-?-?-?-?-?-?-?-?-?-?-?- Negative 146 -?-?-?-?-?-?-?-?-?-?-?-?- MH-woke up with swollen vulva and itching, exam consistent with monilia intertrigo. Rx sent. Good FM. No VB, LOF 02/26/22 -?-?-?-?-?-?-?-?-?-?-?-?- 26w 3d 272 lb 138/76 Negative -?-?-?-?-?-?-?-?-?--?-?-?- Negative 142 -?-?-?-?-?-?-?-?-?-?-?-?- MH-work in for d ec movement. FHT easily found. movement noted with exam. Reassured. 03/16/22 -?-?-?-?-?-?-?-?-?-?-?-?- 29w 0d 277 lb 8 oz 132/83 -?-?-?-?-?-?-?-?-?-?-?-?- Negative 132 30 -?-?-?-?-?-?-?-?-?-?-?-?- JV- tdap today. has acne on chest and arms. some dizziness. recommend claritin, stay hydrated and keep snacks handy. no lof, vaginal bleeding, or dec fm 03/30/22 -?-?-?-?-?-?-?-?-?-?-?-?- 31w 0d 281 lb 124/76 -?-?-?-?-?-?-?-?-?-?-?-?- 130 32 -?-?-?-?-?-?-?-?-?-?-?-?- SM- no vb lof go od fm no regular ctx 04/27/22 -?-?-?-?-?-?-?-?-?-?-?-?- 35w 0d 284 lb 124/76 Negative -?-?-?-?-?-?-?-?-?-?-?-?- Negative 140 39 -?-?-?-?-?-?-?-?-?-?-?-?- SM- no vb lof go od fm no regualr ctx discussed labor precautions. SM- no vb lof good fm no reg ualr ctx discussed labor precautions. recommend consultation 05/04/22 -?-?-?-?-?-?-?-?-?-?--?-?- 36w 0d 289 lb 122/82 Negative -?-?-?-?-?-?-?-?-?-?-?-?- Negative 130 Cephalic 0 -?-?-?-?-?-?-?-?-?-?-?-?- SM- no vb lof go od fm no regualr ctx had us today measuring 9 lbs. will repeat 1 hr gct 05/11/22 -?-?-?-?-?-?-?-?-?-?-?-?- 37w 0d 283 lb 4 oz 113/57 Nega tive -?-?-?-?-?-?-?-?-?-?-?-?- Negative 145 -?-?-?-?-?-?-?-?-?-?-?-?- JV- pt is now ge stational diabetic with EFW >4500 grams. plan is for primary section. she will collect some glucose levels this and return saturday. if levels are >100 fasting and >120 2 hr pp will deliver at 38 weeks. if not will plan for 39 weeks primary secstion . 05/15/22 -?-?-?-?-?-?-?-?-?-?-?-?- 37w 4d 285 lb 8 oz 93/47 Nega tive -?-?-?-?-?-?-?-?-?-?-?-?- Negative 135 0 -?-?-?-?-?-?-?-?-?-?-?-?- JV- Glucose leve ls are low/normal. bp low/normal but patient states that she feels well. plan for 39 week IOL unless BPP this week is not reassuring. nystatin powder sent to pharmacy for yeast under panus. if not healed will need vertical skin incision. 05/18/22 -?-?-?-?-?-?-?-?-?-?-?-?- 38w 0d 286 lb 2 oz 121/71 Nega tive -?-?-?-?-?-?-?-?-?-?-?-?- Negative 138 -?-?-?-?-?-?-?-?-?-?-?-?- JV- glucose leve ls are well controlled. bpp again today. section next week for borderline low URBAN unless low today then will section sooner. trying to hold off due to cutaneous yeast infection. 05/21/22 -?-?-?-?-?-?-?-?-?-?-?-?- 38w 3d 280 lb 138/68 134/83 141/88 Negative mg/dl (Nega tive) -?-?-?-?-?-?-?-?-?-?-?-?- -?-?-?-?-?-?-?-?-?-?-?-?- NST FHR Rate Baby A Baseline: 130 Variability:: Moderate Accelerations:: 15 x 15 Decelerations:: None NST Reactive:: Yes FHR Category:: Category I Uterine Activity:: q3-5 ROS Constitutional Constitutional: Reports systems reviewed and no addt'l complaints, except as documented ENT HEENT: Reports systems reviewed and no addt'l complaints, except as documented Cardiovascular Cardiovascular: Reports systems reviewed and no addt'l complaints, except as documented Respiratory/Chest Respiratory/Chest: Reports systems reviewed and no addt'l complaints, except as documented Gastrointestinal Gastrointestinal: Reports systems reviewed and no addt'l complaints, except as documented and nausea; Denies abdominal pain Genitourinary Genitourinary: Reports systems reviewed and no addt'l complaints, except as documented, contractions Details: present and frequency (regular ) and movement Details: present Musculoskeletal Musculoskeletal: Reports systems reviewed and no addt'l complaints, except as documented Integumentary Integumentary: Reports as per HPI Neurologic Neurologic: Reports systems reviewed and no addt'l complaints, except as documented Endocrine Endocrinology: Reports systems reviewed and no addt'l complaints, except as documented Vital Signs Vital Signs Vital Signs: 05/21/22 03:12 05/21/22 03:12 05/21/22 03:39 Temperature Temperature Source Pulse Rate 81 Respiratory Rate Blood Pressure 138/68 H 134/83 H BP Systolic 138 134 BP Diastolic 68 83 Blood Pressure Source Blood Pressure Position Blood Pressure Location Pulse Ox Oxygen Delivery Method 05/21/22 03:39 05/21/22 06:21 05/21/22 06:21 Temperature Temperature Source Pulse Rate 78 79 Respiratory Rate Blood Pressure 141/88 H BP Systolic 141 BP Diastolic 88 Blood Pressure Source Blood Pressure Position Blood Pressure Location Pulse Ox Oxygen Delivery Method 05/21/22 06:19 Temperature 98.9 F Temperature Source Temporal Pulse Rate 78 Respiratory Rate 16 Blood Pressure BP Systolic BP Diastolic Blood Pressure Source Monitor Blood Pressure Position Semi-Fowlers Blood Pressure Location Left Arm Pulse Ox 99 Oxygen Delivery Method Room Air Weight Weight: 280 lb Body Mass Index (BMI) 46.5 Physical Exam Const alert, oriented x3 and healthy appearing Constitutional Narrative: uncomfortable with contractions HEENT normocephalic and moist oral mucous membranes Head and Scalp: atraumatic Neck full ROM, no lymphadenopathy, supple and thyroid normal General: trachea midline Thyroid: thyroid normal Lymph Lymphatic: no lymphadenopathy noted Chest inspection of chest normal Resp normal respiratory effort Cardio regular rate GI normal to inspection, nondistended, normoactive bowel sounds, soft to palpation and non-tender Inspection: gravid external exam normal Bimanual Exam - Vag & Uterus: uterus non-tender Manual OB Exam: estimated gestational size appropriate, presentation cephalic, dilated, effaced and station Extremity normal to inspection General Extremity: Negative for edema Skin no rashes or lesions noted Neuro deep tendon reflexes 2+ bilaterally Motor Exam: strength 5/5 throughout and clonus absent Psych mental status grossly normal Labs Labs Labs: Blood Type A POSITIVE Antibody Screen NEGATIVE Hct 37.4 % (37-47) Hgb 12.4 g/dL (12.0-15.0) Obstetrics US Syphilis Total Ab Non-reactive Rubella IgG Antibody Reactive (Nonreactive) Hep Bs Antigen Non-Reactive (Nonreactive) Chlamydia DNA (GERARD) Negative (Negative) Neisseria gonorrhoeae DNA (GERARD) Negative (Negative) HIV 1&2 Antibody Non-Reactive (Nonreactive) Glucose 1 Hr 50 gm 168 mg/dL (70-140) H Assessment & Plan (1) Hypothyroid: COMMENT: labs every trimester (2) : QUALIFIERS: Weeks of gestation: 38 weeks Qualified Code(s): Z3A.38 - 38 weeks gestation of COMMENT: GBS Negative, anatomy nl, declined carrier and ntd screen, NIPT low risk, 04/09 growth 99% repeat in 4 weeks (3) Supervision of normal first : COMMENT: PRR ALLA:06/01/22 boy mel Spouse:Jigar (4) Obesity affecting : COMMENT: 1 TM GCT nl. encouraged healthy weight gain. weekly bpp (5) Macrosomia: COMMENT: repeat 1 hr gct, will discuss mode of delivery after formal US report in, Failed 1 HR GCT (6) Gestational diabetes mellitus (GDM): COMMENT: diagnosed 36 weeks due to EFW measuring large. start testing and diabetic diet, plan primary LTCS at 39 weeks. scheduled for 05/25 @ 12 with KieshaV (7) Anxiety: COMMENT: no meds, counseling encouraged. (8) Active labor at term: COMMENT: proceed with primary LTCS due to EFW over 4500g and GDM PLAN: Plan proceed with immediate LTCS [facility]A due to risk of shoulder dystocia because EFW over 4500g and GDM diagnosed. previous early third trimester testing for GDM normal but most recently testing positive for diabetes.
[2022-05-21] MEDS: Sodium Citrate/Citric Acid 30 ML UDC PO (09:00)
--- NOTE | 2022-05-21 09:15 | OP.PCM_ITS ---
Assessment & Plan (1) Active labor at term: COMMENT: proceed with primary LTCS due to EFW over 4500g and GDM (2) Hypothyroid: COMMENT: labs every trimester (3) : QUALIFIERS: Weeks of gestation: 38 weeks Qualified Code(s): Z3A.38 - 38 weeks gestation of COMMENT: GBS Negative, anatomy nl, declined carrier and ntd screen, NIPT low risk, 04/09 growth 99% repeat in 4 weeks (4) Supervision of normal first : COMMENT: PRR ALLA:06/01/22 boy mel Spouse:Jigar (5) Obesity affecting : COMMENT: 1 TM GCT nl. encouraged healthy weight gain. weekly bpp (6) Macrosomia: COMMENT: repeat 1 hr gct, will discuss mode of delivery after formal US report in, Failed 1 HR GCT (7) Gestational diabetes mellitus (GDM): COMMENT: diagnosed 36 weeks due to EFW measuring large. start testing and diabetic diet, plan primary LTCS at 39 weeks. scheduled for 05/25 @ 12 with JV (8) Anxiety: COMMENT: no meds, counseling encouraged. Maternal Data Information ALLA Calculator Estimated Delivery Date Method Current WG Current Estimate 06/01/22 LMP (Certain) 38w 3d Other Estimates 05/29/22 Ultrasound #1 38w 6d 05/24/22 Ultrasound #2 39w 4d Final ALLA: 06/01/22 Final ALLA Source: LMP Gestational age: 38 weeks 3 days Details Operative Information Date of Procedure: 05/21/22 Pre-Operative Diagnosis: @ 38 weeks 3 days, active labor, GDMA1, macrosomia >4500g suspected Post-Operative Diagnosis: @ 38 weeks 3 days, active labor, GDMA1, macrosomia >4500g suspected Classification: ZOILA Procedure Type: low transverse professor of law #1: Ashley Mullen Type of Anesthesia: Spinal Antibiotic Given: Ancef 3 grams IV x1 Findings Description of Procedure: The patient is a 27 y/o @ 38 weeks who presented in early labor and was scheduled for a primary for macrosomia >4500g and gestational diabetic. Spinal anesthesia was placed without difficulty. Kemp catheter was placed. The patient was placed in the dorsal supine position with leftward tilt. Patient was prepped and draped in the normal sterile fashion. Pfannenstiel skin incision was made with the scalpel and carried through to the underlying layer of fascia with the scalpel. Fascia was nicked in the midline and the incision extended laterally. The rectus bellies were dissected off superiorly and inferiorly with out complication both sharply and bluntly. The peritoneum was entered digitally. The incision was stretched and a low transverse uterine incision was made with the scalpel. The 's head was delivered atraumatically followed by the anterior and posterior shoulders without complication the rest of the infant delivered. The cord was clamped and cut and the was handed off to awaiting nurse. The placenta was delivered spontaneously immediately following and was noted to be intact and have a three- vessel cord. The uterus was exteriorized cleared of all clots and debris, and the incision was closed in a double layer closure using #1 Vicryl and #1 Monocryl. The ovaries and fallopian tubes were noted to be within normal limits. The uterus was returned to the maternal abdomen and gutters were cleared of all clots and debris. The peritoneum was closed with 3-0 Monocryl in a running fashion. Gloves were changed prior to fascial closure. Fascia was closed with 0 PDS in a running fashion. Subcutaneous tissue was copiously irrigated and the skin was closed with 3-0 Monocryl in a subcuticular fashion. Mepilex dressing was applied without complication. Patient was taken to rec overy in stable condition. It was discussed with the patient that based on the clinical information obtained during this encounter, combined with her history, at this time I would recommend [ ] for future deliveries if further pregnancies are desired. Presentation: Positive for Vertex Amniotic Membrane Rupture Type: Artificial Amniotic Fluid Description: Lightly stained meconium Placental Delivery Description: Expressed Placenta Disposition: [facility] Cord Vessel Description: 3 Vessels Cord Entanglement: None Infant A Gender: Male (1 minute): 8 (5 minute): 9 Complications Risks of Surgery Discussed w/Patient: Bleeding, Anesthesia Risks, Infection, Need for Future C-Sections and Injury to surrounding structure(s) including bowel and bladder Multi Select Codes Urinary/Genital Urinary/Genital CPT Codes: 80697 Delivery [facility]
[2022-05-21] MEDS: Oxytocin 15 Units/NS 250ml 15 UNITS/250 ML IV.SOLN 83 UNITS IV (10:28)
[2022-05-21] MEDS: Ketorolac 30 MG/ML Syringe IV ×3 (10:28→23:30)
[2022-05-21] MEDS: Lactated Ringers 1,000 ML 100 ML IV (12:00)
[2022-05-21] MEDS: Nystatin Powder 15gm Bottle 1 APPLIC TOPICAL ×2 (13:00→21:40)
[2022-05-21 13:21] LABS: Bedside Glucose 133 mg/dL (74-106)
[2022-05-21 16:20] LABS: Bedside Glucose 81 mg/dL (74-106)
[2022-05-21] MEDS: Enoxaparin 40 MG/0.4 ML Syringe SC (21:40)
[2022-05-21] MEDS: 0.9% Saline Lock 10 ML Syringe IV (23:29)
[2022-05-22 03:12] VITALS: BP 116/50; PULSE 71; RESP 14; TEMP 37; O2SAT 96
[2022-05-22] MEDS: Ketorolac 30 MG/ML Syringe IV (06:01)
[2022-05-22] MEDS: 0.9% Saline Lock 10 ML Syringe IV (06:01)
[2022-05-22] MEDS: Acetaminophen 500 MG Tablet 1000 MG PO ×4 (06:01→23:22)
[2022-05-22] MEDS: Levothyroxine 50 MCG Tablet PO (06:02)
[2022-05-22 06:19] LABS: Hematocrit 29.6 % (37-47); Hemoglobin 9.9 g/dL (12.0-15.0); Mean Corp Hgb Conc 33.4 g/dL (32-36); Mean Corpuscular Hgb 29.5 pg (27.0-32.0); Mean Corpuscular Volume 88.1 fL (81-99); Mean Platelet Vol. 9.6 fl (6.2-12.0); Platelet Count 194 K/mm3 (150-450); RBC Distribution Width CV 16.1 % (11.6-14.6); RBC Distribution Width SD 51.3 fl (35.1-43.9); Red Blood Count 3.36 M/mm3 (4.2-5.4); White Blood Count 11.3 K/mm3 (4.4-11.0)
[2022-05-22 06:36] LABS: Bedside Glucose 81 mg/dL (74-106)
[2022-05-22 07:50] VITALS: BP 113/55; PULSE 71; RESP 15; TEMP 36.8
--- NOTE | 2022-05-22 07:56 | PCM.PN.OB ---
Subjective Subjective Patient doing well without complaints. Tolerating PO. Ambulating and voiding without difficulty. Feeding well. Denies chest pain, shortness of breath, calf pain/swelling, fevers, chills, lightheadedness. Objective Data Objective Data Vital Signs: Vital Signs Temp Pulse Resp BP Pulse Ox O2 Del Method 98.6 F 71 14 116/50 L 96 Room Air 05/22/22 03:12 05/22/22 03:12 05/22/22 03:12 05/22/22 03:12 05/22/22 03:12 05/22/22 03:12 Oxygen Delivery Method Room Air Weight: 280 lb Body Mass Index (BMI) 46.5 Intake & Output: Intake and Output for Last 24 Hours 05/20/22 05/21/22 05/22/22 23:59 23:59 23:59 Intake Total 2185.83 / 2185.83 0 / 0 Output Total 1300 / 1300 450 / 450 Balance 885.83 / 885.83 -450 / -450 Lab / Micro Data Result Diagrams: 05/22/22 06:10 Labs: Laboratory Results - last 24 hr 05/21/22 06:26: POC Glucose 81 05/21/22 12:49: POC Glucose 133 H 05/22/22 06:06: POC Glucose 81 05/22/22 06:10: WBC 11.3 H, RBC 3.36 L, Hgb 9.9 L, Hct 29.6 L, MCV 88.1, MCH 29.5, MCHC 33.4, RDW Std Deviation 51.3 H, RDW Coeff of Antonio 16.1 H, Plt Count 194, MPV 9.6 Physical Exam Const alert and oriented x3 HEENT normocephalic Eyes PERRL Neck full ROM Resp normal respiratory effort GI soft to palpation GI Narrative: FF below U. Dressing intact with >50% old drainage noted Palpation: tender other (appropriately) Assessment & Plan (1) Delivery by section: (2) Macrosomia: COMMENT: repeat 1 hr gct, will discuss mode of delivery after formal US report in, Failed 1 HR GCT (3) Gestational diabetes mellitus (GDM): COMMENT: diagnosed 36 weeks due to EFW measuring large. start testing and diabetic diet, plan primary LTCS at 39 weeks. scheduled for 05/25 @ 12 with JV (4) Anemia: PLAN: Plan s/p LTCS PPD # 1 1. routine post care 2. breast feeding- support given 3. rh positive 4. rubella immune 5. glucose stable 6 will change dressing to monitor drainage 7. rpt CBC 6 hr from last. She asymptomatic
[2022-05-22] MEDS: Enoxaparin 40 MG/0.4 ML Syringe SC (09:53)
[2022-05-22] MEDS: Nystatin Powder 15gm Bottle 1 APPLIC TOPICAL ×2 (09:53→20:14)
[2022-05-22] MEDS: Senna/Docusate Sodium 1 Tablet PO (12:36)
[2022-05-22] MEDS: Naproxen 500 MG Tablet PO ×2 (12:36→20:14)
[2022-05-22 12:51] LABS: Absolute Lymphocyte Count 2.59 X10^3/uL (0.83-4.51); Absolute Neutrophil Count 7.2 X10^3/uL (2.0-7.7); Basophil# 0.03 X10^3/uL; Basophil% 0.3 % (0-1); Eosinophil# 0.12 X10^3/uL; Eosinophils% 1.1 % (0-5); Hematocrit 30.7 % (37-47); Hemoglobin 10.3 g/dL (12.0-15.0); Lymphocyte # 2.59 X10^3/ul (0.83-4.51); Lymphocyte % 23.6 % (19-41); Mean Corp Hgb Conc 33.6 g/dL (32-36); Mean Corpuscular Hgb 29.6 pg (27.0-32.0); Mean Corpuscular Volume 88.2 fL (81-99); Mean Platelet Vol. 9.7 fl (6.2-12.0); Monocyte# 0.91 X10^3/uL; Monocyte% 8.3 % (0-10); NRBC Flagged by Analyzer 0 % (0-5); Neutrophil # 7.23 X10^3/uL (2.7-7.7); Neutrophil % 65.9 % (47-70); Platelet Count 212 K/mm3 (150-450); RBC Distribution Width CV 16.3 % (11.6-14.6); RBC Distribution Width SD 51.8 fl (35.1-43.9); Red Blood Count 3.48 M/mm3 (4.2-5.4)
[2022-05-22 15:15] VITALS: BP 122/40; PULSE 74; RESP 18; TEMP 36.6; O2SAT 97
[2022-05-22 20:31] VITALS: BP 120/40; PULSE 74; RESP 15; TEMP 36.2; O2SAT 96
[2022-05-23 02:45] VITALS: BP 119/56; PULSE 77; RESP 15; TEMP 36.6; O2SAT 97
[2022-05-23] MEDS: Naproxen 500 MG Tablet PO ×3 (05:20→21:33)
[2022-05-23] MEDS: Levothyroxine 50 MCG Tablet PO (06:42)
[2022-05-23] MEDS: Acetaminophen 500 MG Tablet 1000 MG PO ×3 (06:42→18:39)
--- NOTE | 2022-05-23 08:25 | PCM.PN.OB ---
Subjective Subjective Patient doing well without complaints. Tolerating PO. Ambulating and voiding without difficulty. Feeding well. Denies chest pain, shortness of breath, calf pain/swelling, fevers, chills, lightheadedness. Objective Data Objective Data Vital Signs: Vital Signs Temp Pulse Resp BP Pulse Ox O2 Del Method 97.8 F 77 15 119/56 L 97 Room Air 05/23/22 02:45 05/23/22 02:45 05/23/22 02:45 05/23/22 02:45 05/23/22 02:45 05/23/22 02:45 Oxygen Delivery Method Room Air Weight: 280 lb Body Mass Index (BMI) 46.5 Intake & Output: Intake and Output for Last 24 Hours 05/21/22 05/22/22 05/23/22 23:59 23:59 23:59 Intake Total 2185.83 / 2185.83 0 / 0 Output Total 1300 / 1300 450 / 450 Balance 885.83 / 885.83 -450 / -450 Lab / Micro Data Attestation: I reviewed the patient's lab results. Result Diagrams: 05/22/22 12:45 Labs: Laboratory Results - last 24 hr 05/22/22 12:45: WBC 11.0, RBC 3.48 L, Hgb 10.3 L, Hct 30.7 L, MCV 88.2, MCH 29.6, MCHC 33.6, RDW Std Deviation 51.8 H, RDW Coeff of Antonio 16.3 H, Plt Count 212, MPV 9.7, Immature Gran % (Auto) 0.800, Neut % (Auto) 65.9, Lymph % (Auto) 23.6, [place] % (Auto) 8.3, Eos % (Auto) 1.1, Baso % (Auto) 0.3, Absolute Neuts (auto) 7.2, Absolute Lymphs (auto) 2.59, Nucleated RBC % 0 ROS Constitutional Constitutional: Reports systems reviewed and no addt'l complaints, except as documented ENT HEENT: Reports systems reviewed and no addt'l complaints, except as documented Cardiovascular Cardiovascular: Reports systems reviewed and no addt'l complaints, except as documented Respiratory/Chest Respiratory/Chest: Reports systems reviewed and no addt'l complaints, except as documented Gastrointestinal Gastrointestinal: Reports systems reviewed and no addt'l complaints, except as documented; Denies abdominal pain or nausea Genitourinary Genitourinary: Reports systems reviewed and no addt'l complaints, except as documented; Denies difficulty urinating Musculoskeletal Musculoskeletal: Reports systems reviewed and no addt'l complaints, except as documented Integumentary Integumentary: Reports as per HPI Neurologic Neurologic: Reports systems reviewed and no addt'l complaints, except as documented Endocrine Endocrinology: Reports systems reviewed and no addt'l complaints, except as documented Physical Exam Const alert and oriented x3 HEENT normocephalic Eyes PERRL Neck full ROM Resp normal respiratory effort GI soft to palpation GI Narrative: FF below U. Dressing intact with >50% old drainage noted. area marked by CNM Palpation: tender other (appropriately) Assessment & Plan (1) Delivery by section: (2) Anemia: COMMENT: asymptomatic. iron rich foods PLAN: Plan s/p LTCS PPD # 2 1. routine post care 2. breast feeding- support given 3. rh positive 4. rubella immune
[2022-05-23 08:30] VITALS: BP 118/61; PULSE 78; RESP 18; TEMP 36.6
[2022-05-23] MEDS: Senna/Docusate Sodium 1 Tablet PO (10:52)
[2022-05-23] MEDS: Nystatin Powder 15gm Bottle 1 APPLIC TOPICAL ×2 (10:52→22:04)
[2022-05-23] MEDS: Enoxaparin 40 MG/0.4 ML Syringe SC (10:52)
[2022-05-23 14:30] VITALS: BP 133/63; PULSE 86; RESP 16; TEMP 36.1
[2022-05-23 19:45] VITALS: BP 132/51; PULSE 74; RESP 16; TEMP 36.2; O2SAT 97
[2022-05-24] MEDS: Acetaminophen 500 MG Tablet 1000 MG PO ×2 (00:30→06:24)
[2022-05-24 03:00] VITALS: BP 141/72; PULSE 72; RESP 16; TEMP 36.4
[2022-05-24] MEDS: Naproxen 500 MG Tablet PO (05:28)
[2022-05-24] MEDS: Levothyroxine 50 MCG Tablet PO (06:24)
--- NOTE | 2022-05-24 07:54 | PCM.DC.SUM ---
Providers Date of Admission: 05/21/22 Primary Care Physician: Adriana Lorenzana DO Reason For Visit: PRIMARY C SECTION Diagnosis Discharge Diagnosis (1) Delivery by section: Status: Acute (2) Anemia: Status: Acute Code(s): D64.9 - Anemia, unspecified Medications at Discharge Home Medications levothyroxine 50 mcg capsule 100 mcg PO DAILY 10/24/21 prenat.vits,andrea,[id number] 1 tab PO DAILY 10/24/21 nystatin 100,000 unit/gram topical powder 1 applic topical BID #60 grams 05/16/22 naproxen 250 mg tablet 500 mg PO Q8H PRN PRN Mild Pain #30 TABLETS 05/24/22 oxycodone-acetaminophen 5 mg-325 mg tablet (Percocet) 1 tab PO Q4H PRN pain 7 days #20 tabs 05/24/22 Hospital Course Operations section Summary of Care Provided Minutes Spent on Discharge: 15 Hospital Course: The patient was admitted on 05/21/22 for a primary section for macrosomia and morbid obesity. She recovered well on pod #1-3 with little complaints. She received breast feeding support and pain medication. on POD #3 she was discharged to home in stable condition Physical Exam HEENT normocephalic Resp normal respiratory effort and normal air movement GI soft to palpation, non-tender and non-distended Rectal Exam: other Other Details: Incision is clean, dry, and intact no CVA tenderness Extremity normal to inspection General Extremity: edema bilateral (trace ) Weight / BMI Weight Weight: 280 lb Body Mass Index (BMI) 46.5 ABG / Lab / Microbiology Data Result Diagrams: 05/22/22 12:45 Meaningful Use Info Meaningful Use Diagnoses (Choose all that apply): None applicable Discharge Plan Admission Admit Date/Time: 05/21/22 06:37 Primary Reason for Your Visit: section Attending Provider: Prudence Law Primary Care Provider: Adriana Lorenzana Discharge Orders/Prescriptions Prescriptions: New oxycodone-acetaminophen [Percocet] 5-325 mg tablet 1 tab PO Q4H PRN (Reason: pain) 7 Days Qty: 20 0RF naproxen 250 mg tablet 500 mg PO Q8H PRN PRN (Reason: Mild Pain ) Qty: 30 0RF Continued prenat.vits,andrea,[id number] Tablet 1 tab PO DAILY levothyroxine 50 mcg capsule 100 mcg PO DAILY nystatin 100,000 unit/gram powder 1 applic topical BID Qty: 60 1RF Referrals / Follow Up: Adriana Lorenzana DO [Primary Care Provider] - Disposition Disposition (needs filled in before D/C Order can be placed): Home, Self Care
[2022-05-24 07:55] VITALS: BP 125/58; PULSE 78; RESP 18; TEMP 36.3; O2SAT 96
[2022-05-24] MEDS: Nystatin Powder 15gm Bottle 1 APPLIC TOPICAL (10:32)
[2022-05-24] MEDS: Enoxaparin 40 MG/0.4 ML Syringe SC (10:32)
[2022-05-24] MEDS: Senna/Docusate Sodium 1 Tablet PO (10:32)
== END 2022-05-24 11:30 | disposition home or self-care (01) | DRG 788 ==
LOC: WPOUT 06:37 → WP 06:37
PROVIDERS: Nurse Practitioner Women's Health; Admitting Provider Obstetrics & Gynecology; PCP Family Medicine; Referring Provider Obstetrics & Gynecology; Visit Provider Obstetrics & Gynecology
DX: O24.429 Gestational diabetes mellitus in childbirth, unspecified control (principal); E66.9 Obesity, unspecified; E03.9 Hypothyroidism, unspecified; F41.9 Anxiety disorder, unspecified; O99.214 Obesity complicating childbirth; O99.344 Other mental disorders complicating childbirth; Z3A.38 38 weeks gestation of pregnancy; O99.284 Endocrine, nutritional and metabolic diseases complicating childbirth; Z37.0 Single live birth; O77.0 Labor and delivery complicated by meconium in amniotic fluid; Z79.890 Hormone replacement therapy
CPT/HCPCS: 59050; 81002; 82962; 85025; 85027; 86850; 86900; 86901; 99218; 99251; J7120; A4216; G0378; G0463

== ENCOUNTER → 2022-07-11 | Outpatient (CLI) | payer BC, SELFPAY ==
[2022-07-16 20:30] LABS: HPV Reflexed? NOT INDICATED
== END | disposition home or self-care (01) ==
PROVIDERS: PCP Family Medicine; Visit Provider Obstetrics & Gynecology
DX: Z12.4 Encounter for screening for malignant neoplasm of cervix (principal)
CPT/HCPCS: 88175; G0145

== ENCOUNTER → 2022-11-30 | Outpatient (CLI) | payer BC, SELFPAY ==
[2022-11-30 19:16] LABS: Internal QC Validated? YES +Cl - CLEAR BKGD; Monotest Negative (Negative)
== END | disposition home or self-care (01) ==
LOC: MFPLAB 14:04
PROVIDERS: Family Medicine; PCP Family Medicine; Visit Provider Family Medicine
DX: J02.9 Acute pharyngitis, unspecified (principal)
CPT/HCPCS: 36415; 86308

== ENCOUNTER → 2023-02-25 | Outpatient (CLI) | payer BC, SELFPAY ==
[2023-02-25 18:08] LABS: Absolute Lymphocyte Count 3.25 X10^3/uL (0.83-4.51); Absolute Neutrophil Count 4.7 X10^3/uL (2.0-7.7); Basophil# 0.05 X10^3/uL; Basophil% 0.6 % (0-1); Eosinophils% 2.2 % (0-5); Hematocrit 43.2 % (37-47); Hemoglobin 14.7 g/dL (12.0-15.0); Lymphocyte # 3.25 X10^3/ul (0.83-4.51); Lymphocyte % 35.9 % (19-41); Mean Corpuscular Hgb 28.9 pg (27.0-32.0); Monocyte% 8.8 % (0-10); NRBC Flagged by Analyzer 0 % (0-5); Neutrophil # 4.73 X10^3/uL (2.7-7.7); Neutrophil % 52.3 % (47-70); Platelet Count 270 K/mm3 (150-450); RBC Distribution Width CV 13.4 % (11.6-14.6); RBC Distribution Width SD 41.1 fl (35.1-43.9); Red Blood Count 5.08 M/mm3 (4.2-5.4); White Blood Count 9.1 K/mm3 (4.4-11.0)
[2023-02-25 18:18] LABS: Internal QC Validated? YES +Cl - CLEAR BKGD; Pregnancy, Serum, hCG Quali. NEGATIVE Negative
[2023-02-25 18:45] LABS: T4 Free Direct 0.86 ng/dL (0.76-1.46); Thyroid Stim Hormone (TSH) 2.83 uIU/mL (0.358-3.74)
== END | disposition home or self-care (01) ==
PROVIDERS: PCP Family Medicine; Referring Provider Family Medicine; Visit Provider Family Medicine
DX: E03.9 Hypothyroidism, unspecified (principal); N93.9 Abnormal uterine and vaginal bleeding, unspecified
CPT/HCPCS: 36415; 84439; 84443; 84703; 85025

== ENCOUNTER → 2023-02-27 | Outpatient (CLI) | payer BC, SELFPAY ==
[2023-02-27 17:31] LABS: Absolute Lymphocyte Count 2.82 X10^3/uL (0.83-4.51); Absolute Neutrophil Count 4.4 X10^3/uL (2.0-7.7); Basophil# 0.04 X10^3/uL; Basophil% 0.5 % (0-1); Eosinophils% 2.4 % (0-5); Hematocrit 42.9 % (37-47); Hemoglobin 14.3 g/dL (12.0-15.0); Lymphocyte # 2.82 X10^3/ul (0.83-4.51); Lymphocyte % 34.3 % (19-41); Mean Corp Hgb Conc 33.3 g/dL (32-36); Mean Corpuscular Hgb 28.7 pg (27.0-32.0); Mean Platelet Vol. 10.3 fl (6.2-12.0); Monocyte# 0.78 X10^3/uL; Monocyte% 9.5 % (0-10); NRBC Flagged by Analyzer 0 % (0-5); Neutrophil # 4.36 X10^3/uL (2.7-7.7); Neutrophil % 53.1 % (47-70); Platelet Count 273 K/mm3 (150-450); RBC Distribution Width CV 13.3 % (11.6-14.6); RBC Distribution Width SD 41.1 fl (35.1-43.9); Red Blood Count 4.99 M/mm3 (4.2-5.4); White Blood Count 8.2 K/mm3 (4.4-11.0)
[2023-02-27 17:53] LABS: hCG Titer Quant., Serum < 1 mIU/mL (1-3)
[2023-02-27 17:56] LABS: T4 Free Direct 0.88 ng/dL (0.76-1.46); Thyroid Stim Hormone (TSH) 3.53 uIU/mL (0.358-3.74)
== END | disposition home or self-care (01) ==
LOC: MFPLAB 16:28
PROVIDERS: PCP Family Medicine; Visit Provider Family Medicine
DX: N93.9 Abnormal uterine and vaginal bleeding, unspecified (principal); E03.9 Hypothyroidism, unspecified
CPT/HCPCS: 36415; 84439; 84443; 84702; 85025

== ENCOUNTER → 2023-03-04 | Outpatient (CLI) | payer BC, SELFPAY ==
--- NOTE | 2023-03-04 16:49 | US_ITS ---
STUDY: ULTRASOUND TRANSVAGINAL CLINICAL: Female, 27 years old. ABNORMAL UTERINE AND VAGINAL BLEEDING, UNSPECIFIED TECHNIQUE: Transvaginal COMPARISON: None. FINDINGS: Normal uterine size measuring 8.6 x 5.9 x 4.5 cm in maximal craniocaudal dimension. There are no myometrial masses. Normal endometrial thickness measuring 10 mm. There are no endometrial masses, and there is no fluid in the endometrial cavity. Normal uterine cervix. Normal right ovary, measuring 3.8 x 3.3 x 2.6 cm. There are multiple follicles without a dominant cyst. Normal left ovary, measuring 2.4 x 2.5 x 2.0 cm. There are multiple follicles without a dominant cyst. There is no free fluid in the pelvis. Polycystic ovary disease: No. US/Transvaginal Non- IMPRESSION: Normal transvaginal pelvic ultrasound. Electronically Signed: Slade Mayes MD at 21:55 EDT ,
== END | disposition home or self-care (01) ==
LOC: US 16:48
PROVIDERS: PCP Family Medicine; Referring Provider Family Medicine; Visit Provider Family Medicine
DX: N93.9 Abnormal uterine and vaginal bleeding, unspecified (principal)
CPT/HCPCS: 76830

== ENCOUNTER → 2023-10-02 | Outpatient (CLI) | payer BC, SELFPAY ==
[2023-10-02 17:36] LABS: Hemoglobin 14.3 g/dL (12.0-15.0); Mean Corp Hgb Conc 32.5 g/dL (32-36); Mean Corpuscular Hgb 26.8 pg (27.0-32.0); Mean Corpuscular Volume 82.4 fL (81-99); Mean Platelet Vol. 10.1 fl (6.2-12.0); Platelet Count 331 K/mm3 (150-450); RBC Distribution Width CV 14.6 % (11.6-14.6); RBC Distribution Width SD 43.5 fl (35.1-43.9); Red Blood Count 5.34 M/mm3 (4.2-5.4); White Blood Count 9.7 K/mm3 (4.4-11.0)
[2023-10-02 18:07] LABS: ALB/GLOB Ratio 1.1 RATIO (0.9-2.4); AST(SGOT) 14 U/L (15-37); Alanine Aminotransfer ALT/SGPT 33 U/L (13-56); Albumin, Serum 3.7 g/dL (3.2-5.0); Alkaline Phosphatase 64 U/L (45-117); Anion Gap 7 (5-15); BUN 11 mg/dL (7-18); BUN/Creat Ratio 12.5 RATIO (10-20); Calcium,Total 8.8 mg/dL (8.5-10.1); Chloride 108 mmol/L (98-107); Creatinine, Serum 0.88 mg/dL (0.55-1.02); EST Glomerular Filtration Rate 80 mL/min (>60); Est Glom Filt Rate - Afr Amer 97 mL/min (>60); Globulin 3.3 g/dL (2.2-4.2); Glucose 90 mg/dL (74-106); Potassium 3.5 mmol/L (3.5-5.1); Sodium Level 139 mmol/L (136-145); Thyroid Stim Hormone (TSH) 3.29 uIU/mL (0.358-3.74)
== END | disposition home or self-care (01) ==
LOC: MFPLAB 16:30
PROVIDERS: Nurse Practitioner Family; PCP Family Medicine; Visit Provider Family Medicine
DX: R07.9 Chest pain, unspecified (principal)
CPT/HCPCS: 36415; 80053; 84443; 85027

== ENCOUNTER 2023-10-20 12:16 | Emergency (ER) | payer BC, SELFPAY ==
[2023-10-20 12:17] VITALS: BP 137/100; PULSE 109; RESP 18; TEMP 36.4; O2SAT 97; BMI 46.6
--- NOTE | 2023-10-20 12:34 | US_ITS ---
EXAM: US PELVIS TRANSVAGINAL CLINICAL INDICATION: vaginal bleeding x 1 month TECHNIQUE: Endovaginal pelvic ultrasound was performed with grayscale and color Doppler imaging. Endovaginal imaging was used for better evaluation of the endometrium and adnexa. COMPARISON: US Pelvis Endovaginal dated 03/04/2023 FINDINGS: UTERUS/CERVIX: Uterus measures 8.9 x 5.9 x 4.2 cm with endometrial thickness of 14 mm. RIGHT OVARY: Right ovary measures 5.6 x 4.4 x 3.6 cm and contains a 3.8 cm cyst containing low-level echoes. Blood flow is present in the right ovary. LEFT OVARY: Nonvisualized presumably obscured by overlying bowel gas. FREE FLUID: None. US/Transvaginal Non- IMPRESSION: 1. 3.8 cm right ovarian cyst which is likely physiologic in nature. 2. Thickened endometrium of uncertain significance in a patient with negative hCG titer. Electronically Signed: Yosef Meeks MD at 13:56 EDT ,
--- NOTE | 2023-10-20 12:36 | EDS_ITS ---
HPI HPI - Female History of Present Illness Chief Complaint: Vag Bleeding Detail of Chief Complaint: Vaginal bleeding Informant: patient Narrative Narrative: Patient presents with vaginal bleeding that started a month ago and initially was mild but just be spotting when she wiped. Now she is having large amounts of bleeding with large clots and going through a tampon about every hour. At times she is felt lightheaded and dizzy. She is scheduled to see her SUPERVISOR KNITTING in 2 days. She is trying to have a baby but does not think she is . PFSH PFS Medical History Active labor at term Anxiety Infertility Macrosomia Obesity affecting Superficial varicosities Supervision of normal first Thyroid disorder Home Medications levothyroxine 50 mcg capsule 100 mcg PO DAILY 10/24/21 [History Last Taken 05/20/22 07:00] prenat.vits,andrea,[id number]-ladve 1 tab PO DAILY 10/24/21 [History Last Taken 05/20/22 17:30] nystatin 100,000 unit/gram topical powder 1 applic topical BID #60 grams 05/16/22 [Rx Last Taken 05/20/22 19:30] megestrol 20 mg tablet 10 mg (1/2 x 20 mg) PO DAILY #7 tabs 10/20/23 [Rx Last Taken Unknown] Allergy/AdvReac Type Severity Reaction Status Date / Time No Known Allergies Allergy Verified 10/20/23 12:17 Family History Father Diabetes CAD (coronary artery disease) Hypertension Surgical History Delivery by section Social History adopted: No household members: spouse current occupational status: 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 pets and animals: Yes (avoid litter box) pets and animals: cat(s), dog(s) and fish Smoking Status: Never smoker alcohol intake: current alcohol intake frequency: a few times a month details: not while substance use type: does not use do you feel safe at home: Yes additional social history: Spouse-Jigar ROS ROS ED Review of Systems ROS Unobtainable: other Constitutional Constitutional ED: Reports lethargy; Denies chills, fever(s), sweats or weight l oss Eyes Eyes: Denies blurry vision, change in vision or diplopia ENT ENT ED: Denies rhinorrhea or sore throat Cardiovascular Cardiovascular: Denies chest pain, orthopnea or racing heartbeat Respiratory/Chest Respiratory/Chest: Denies cough, dyspnea, dyspnea on exertion, orthopnea or sputum Gastrointestinal Gastrointestinal: Denies abdominal pain, diarrhea, nausea or vomiting Genitourinary Genitourinary ED: Reports other Details: Vaginal bleeding ; Denies dysuria, hematuria or urinary frequency Musculoskeletal Musculoskeletal: Denies arthralgias, back pain, myalgias or neck pain Integumentary Denies abscess, Abrasions or rash Neurologic Neurologic: Denies headache(s) or weakness Psychiatric Psychiatric: Denies anxiety, depression or suicidal thoughts Endocrine Endocrinology: Denies polydipsia, polyphagia or polyuria Hematologic/Lymphatic Hematologic/Lymphatic: Denies easy bleeding, easy bruising or lymphadenopathy Allergic/Immunologic Allergic/Immunologic ED: Denies mouth swelling, tongue swelling or urticaria EXAM Physical Exam Const Vital Signs: 10/20/23 12:17 10/20/23 14:20 10/20/23 14:16 Temperature 97.6 F L Temperature Source Temporal Pulse Rate 109 H 83 Pulse Rate [Lying] 78 Pulse Rate [Sitting (for 1 minute prior to obtaining)] 83 Pulse Rate [Standing (for 1 minute prior to obtaining)] 98 Respiratory Rate 18 18 Blood Pressure 137/100 H 147/91 H Blood Pressure [Lying] 142/78 H Blood Pressure [Sitting (for 1 minute prior to obtaining)] 147/91 H Blood Pressure [Standing (for 1 minute prior to obtaining)] 140/89 H Blood Pressure Mean 112 109 Blood Pressure Mean [Lying] 99 Blood Pressure Mean [Sitting (for 1 minute prior to obtaining)] 109 Blood Pressure Mean [Standing (for 1 minute prior to obtaining)] 106 Pulse Ox 97 99 Oxygen Delivery Method Room Air Room Air Positive well nourished and well developed General Appearance ED: well developed and NAD HEENT Reports TM's clear and moist mucous membranes normocephalic and atraumatic; Negative for trauma or tenderness Tympanic Membrane ED: Yes TM's clear Eyes PERRL and EOMs intact bilaterally General Eye ED: Negative for pale conjunctiva or scleral icterus Neck no lymphadenopathy, supple and no JVD General: Negative for tenderness Chest Wall inspection of chest normal and palpation of chest normal Chest: Negative for tenderness Resp normal respiratory effort and clear to auscultation bilaterally Effort and Inspection: Negative for respiratory distress or pain with movement Auscultation: Negative for rhonchi, wheezes or diminished lung sounds Cardio regular rate, regular rhythm, S1 normal heart sound, S2 normal heart sound and no murmurs Peripheral Pulses: pulses 2+ throughout GI normal to inspection, nondistended, normoactive bowel sounds, soft to palpation, non-tender, non-distended and no masses Back/Spine no CVA tenderness and no thoracic nor lumbar tenderness Extremity normal to inspection General Extremety ED: Negative for edema General Extremity: Negative for edema Neuro oriented x3, CN's II-XII intact bilaterally, no sensory deficits noted and gait normal Sensorium / Orientation: awake, alert, oriented to person, oriented to place and oriented to time Motor Exam: strength 5/5 throughout and strength abnormal Psych mental status grossly normal Skin no rashes or lesions noted and no wounds MDM MDM MDM Narrative Medical decision making narrative: Patient presents with vaginal bleeding x 1 month worsened over the last several days. Scheduled to see her SUPERVIS[employer] in 2 days. CBC with differential obtained showed a white count of 8.3 with hemoglobin 14.1 and platelet count 269. Chemistries unremarkable. hCG was negative. We did perform a pelvic ultrasound that showed a right ovarian cyst and thickened endometrium at 14 mm. Orthostatic vital signs were negative here. Discussed case with SUPER[employer] on-call Dr. Condon who recommended we start patient on Megace 10 mg every day and give her a 7-day supply. She is to keep her appointment with [employer]. Patient advised to return if persistent heavy bleeding, severe abdominal pain, or condition worsening way. Lab Data Attestation: I reviewed the patient's lab results. Labs: Laboratory Results - last 24 hr 10/20/23 10/20/23 12:50 13:05 WBC 8.3 RBC 5.26 Hgb 14.1 Hct 42.7 MCV 81.2 MCH 26.8 L MCHC 33.0 RDW Std Deviation 41.9 RDW Coeff of Antonio 14.4 Plt Count 269 MPV 10.0 Immature Gran % (Auto) 0.400 Neut % (Auto) 58.6 Lymph % (Auto) 29.4 [place] % (Auto) 8.7 Eos % (Auto) 2.3 Baso % (Auto) 0.6 Absolute Neuts (auto) 4.9 Absolute Lymphs (auto) 2.43 Nucleated RBC % 0 Serum , Qual NEGATIVE Blood Type Cancelled A POSITIVE Antibody Screen Cancelled NEGATIVE Discharge Plan Triage Chief Complaint: Vag Bleeding ED Provider: Lissette Biggs Dx/Rx/DC Orders Clinical Impression: DUB (dysfunctional uterine bleeding) Instructions: ED Dysfunctional Uterine Bleeding Prescriptions: New megestrol 20 mg tablet 10 mg PO DAILY Qty: 7 0RF No Action prenat.vits,andrea,[id number] Tablet 1 tab PO DAILY levothyroxine 50 mcg capsule 100 mcg PO DAILY nystatin 100,000 unit/gram powder 1 applic topical BID Qty: 60 1RF Primary Care Provider: Stacey Santacruz Referrals: Adriana Lorenzana DO [Med Staff - [employer] Work[employer]] - Ashley Mullen MD [Med Staff - Active Staff] - 2 Days Disposition Disposition: Home, Self Care
[2023-10-20] MEDS: 0.9% Normal Saline (1000mL) 1,000 ML 1000 ML IV (12:49)
[2023-10-20 12:59] LABS: Absolute Lymphocyte Count 2.43 X10^3/uL (0.83-4.51); Absolute Neutrophil Count 4.9 X10^3/uL (2.0-7.7); Basophil# 0.05 X10^3/uL; Basophil% 0.6 % (0-1); Eosinophil# 0.19 X10^3/uL; Eosinophils% 2.3 % (0-5); Hematocrit 42.7 % (37-47); Hemoglobin 14.1 g/dL (12.0-15.0); Lymphocyte # 2.43 X10^3/ul (0.83-4.51); Lymphocyte % 29.4 % (19-41); Mean Corpuscular Hgb 26.8 pg (27.0-32.0); Mean Corpuscular Volume 81.2 fL (81-99); Monocyte# 0.72 X10^3/uL; Monocyte% 8.7 % (0-10); NRBC Flagged by Analyzer 0 % (0-5); Neutrophil # 4.85 X10^3/uL (2.7-7.7); Neutrophil % 58.6 % (47-70); Platelet Count 269 K/mm3 (150-450); RBC Distribution Width CV 14.4 % (11.6-14.6); RBC Distribution Width SD 41.9 fl (35.1-43.9); Red Blood Count 5.26 M/mm3 (4.2-5.4); White Blood Count 8.3 K/mm3 (4.4-11.0)
[2023-10-20 13:07] LABS: Internal QC Validated? YES +Cl - CLEAR BKGD; Pregnancy, Serum, hCG Quali. NEGATIVE Negative
[2023-10-20 14:16] VITALS: BP 147/91; PULSE 83; RESP 18; O2SAT 99
[2023-10-20 14:20] VITALS: BP 140/89; BP 142/78; BP 147/91; PULSE 78; PULSE 83; PULSE 98
[2023-10-20 14:49] VITALS: BP 138/97; PULSE 77; RESP 16; TEMP 36.7; O2SAT 98
== END 2023-10-20 14:58 | disposition home or self-care (01) ==
PROVIDERS: Emergency Provider Emergency Medicine; PCP Family Medicine; Visit Provider Emergency Medicine
DX: N93.8 Other specified abnormal uterine and vaginal bleeding (principal); N83.201 Unspecified ovarian cyst, right side
CPT/HCPCS: 76830; 84703; 85025; 86850; 86900; 86901; 96360; 99284; J7030

== ENCOUNTER → 2023-11-14 | Outpatient (CLI) | payer BC, SELFPAY ==
[2023-11-14 17:19] LABS: Absolute Lymphocyte Count 3.35 X10^3/uL (0.83-4.51); Absolute Neutrophil Count 3.6 X10^3/uL (2.0-7.7); Basophil# 0.06 X10^3/uL; Basophil% 0.7 % (0-1); Eosinophil# 0.24 X10^3/uL; Eosinophils% 2.9 % (0-5); Hematocrit 41.8 % (37-47); Hemoglobin 13.5 g/dL (12.0-15.0); Lymphocyte # 3.35 X10^3/ul (0.83-4.51); Mean Corp Hgb Conc 32.3 g/dL (32-36); Mean Corpuscular Hgb 26.7 pg (27.0-32.0); Mean Corpuscular Volume 82.6 fL (81-99); Mean Platelet Vol. 10.7 fl (6.2-12.0); NRBC Flagged by Analyzer 0 % (0-5); Platelet Count 278 K/mm3 (150-450); RBC Distribution Width CV 14.5 % (11.6-14.6); RBC Distribution Width SD 42.5 fl (35.1-43.9); Red Blood Count 5.06 M/mm3 (4.2-5.4); White Blood Count 8.2 K/mm3 (4.4-11.0)
== END | disposition home or self-care (01) ==
LOC: LAB 16:06
PROVIDERS: PCP Family Medicine; Referring Provider Nurse Practitioner Family; Visit Provider Nurse Practitioner Family
DX: N93.8 Other specified abnormal uterine and vaginal bleeding (principal)
CPT/HCPCS: 36415; 85025

== ENCOUNTER 2023-12-12 09:13 | Emergency (ER) | payer BC, SELFPAY ==
[2023-12-12 09:13] VITALS: BP 160/100; BP 163/101; PULSE 107; PULSE 111; RESP 20; RESP 22; TEMP 37.2; O2SAT 97; O2SAT 98; BMI 46.7
--- NOTE | 2023-12-12 10:24 | CT_ITS ---
STUDY: CT SOFT TISSUE NECK WITH CONTRAST REASON FOR EXAM: Female, 28 years old. sore throat RADIATION DOSAGE (If Supplied By Facility): CTDIvol = ( 19.8 ) mGy, DLP = ( 603.37 ) mGycm TECHNIQUE: The patient was scanned in a multi-detector CT scanner. High resolution transaxial imaging was performed following intravenous administration of IV 100mL Isovue-370. Sagittal and coronal images were reconstructed. Individualized dose optimization techniques were used for this CT. COMPARISON: None. FINDINGS: Normal bilateral parotid glands. Normal bilateral service agent spaces. Normal bilateral parapharyngeal spaces. Normal bilateral carotid spaces. Normal bilateral sublingual and submandibular glands and spaces. Normal visualized nasopharynx. Normal retropharyngeal space. Normal perivertebral space. Normal visualized bilateral faucial tonsils. The visualized tongue, tongue base and oropharynx are normal. The visualized cervical lymph nodes (levels I-) are within normal size limits, and maintain normal morphology. There is no demonstrated solid or cystic mass lesion. There is no abnormal contrast enhancement. Normal epiglottis, bilateral vallecula and hypopharynx. The pre-epiglottic and paraglottic adipose spaces are normal. Normal visualized bilateral piriform sinuses, aryepiglottic folds, vocal cords, and arytenoid-cricoid articulations. Normal subglottic trachea. Normal bilateral lobes of the thyroid gland. Normal visualized pulmonary apices. Normal visualized paranasal sinuses. Normal visualized cervical spine. CT/Soft Tissue Neck WITH Contrast IMPRESSION: Normal enhanced CT examination of the soft tissues of the neck. Electronically Signed: Bryan Link MD at 11:23 EDT ,
[2023-12-12] MEDS: Mag Hydrox/Al Hydrox/Simeth 30 ML UDC PO (10:40)
[2023-12-12] MEDS: Lidocaine 2% Viscous15 ML UDC 15 ML PO (10:40)
[2023-12-12] MEDS: dexAMETHasone 10 MG/ML Vial IV (10:40)
--- NOTE | 2023-12-12 10:43 | EDS_ITS ---
HPI HPI - URI History of Present Illness Chief Complaint: Sore Throat Narrative Narrative: 28-year-old female presenting with sore throat. She states she has had this for about 2 weeks. She states it feels like she is congested in her throat. She describes the pain as sharp at times. Sometimes she has trouble swallowing food due to the pain. She cannot clear this sensation. About a week ago she went to urgent care for evaluation and had a strep test performed which was negative. She states she went back yesterday because she was still having a sore throat. They tested her for mono and referred her to ENT. Patient states she tried gargling salt water, DayQuil, NyQuil, Tylenol. She states that this has helped. She has not had a fever. She states has not really been coughing but she reports to me that in the mornings when she wakes up it feels like there is pressure on her throat and she has to sit up to help resolve feeling she can breathe again. ROS ROS ED Constitutional Constitutional ED: Denies chills, fever(s) or sweats Eyes Eyes: Denies blurry vision or change in vision ENT ENT ED: Reports sore throat; Denies ear pain Cardiovascular Cardiovascular: Denies chest pain, palpitations or racing heartbeat Respiratory/Chest Respiratory/Chest: Denies cough, dyspnea or sputum Gastrointestinal Gastrointestinal: Denies abdominal pain, constipation, diarrhea, nausea or vomiting Genitourinary Genitourinary ED: Denies dysuria, hematuria or urinary frequency Musculoskeletal Musculoskeletal: Denies arthralgias, myalgias or neck pain Integumentary Denies abscess, Abrasions or rash Neurologic Neurologic: Denies headache(s), paresthesias or weakness Psychiatric Psychiatric: Denies anxiety, depression, suicidal ideation or suicidal thoughts Endocrine Endocrinology: Denies polydipsia or polyuria [facility] Medical History Ovarian cyst Active labor at term Infertility Thyroid disorder Superficial varicosities Macrosomia Obesity affecting Supervision of normal first Anxiety Home Medications ?Medication ?Instructions ?Recorded ?Last Taken ?Type NK 11/14/23 Unknown History Allergy/AdvReac Type Severity Reaction Status Date / Time No Known Allergies Allergy Verified 12/12/23 09:13 Family History Father Diabetes CAD (coronary artery disease) Hypertension Surgical History Delivery by section Social History adopted: No household members: spouse 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 occupational status: 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 pets and animals: Yes (avoid litter box) pets and animals: cat(s), dog(s) and fish Smoking Status: Never smoker alcohol intake: current alcohol intake frequency: a few times a month details: not while substance use type: does not use do you feel safe at home: Yes additional social history: Spouse-Jigar EXAM Physical Exam Const Vital Signs: 12/12/23 09:13 12/12/23 09:13 Temperature 99 F Temperature Source Temporal Pulse Rate 111 H 107 H Respiratory Rate 20 H 22 H Blood Pressure 163/101 H 160/100 H Blood Pressure Mean 121 120 Pulse Ox 97 98 Oxygen Delivery Method Room Air Room Air Positive well nourished General Appearance ED: NAD HEENT Reports moist mucous membranes normocephalic and atraumatic Mouth ED: Yes oral and palatal mucosa normal, Yes lips normal, Yes tongue normal, Yes salivary gland normal and Yes moist mucous membranes normal Mouth: oral and palatal mucosa normal, lips normal, tongue normal and salivary gland normal Throat: posterior oropharynx normal Eyes PERRL and EOMs intact bilaterally Neck no lymphadenopathy and supple Neck Narrative: No stridor General: Negative for anterior neck swelling Resp Auscultation: Negative for rales, rhonchi or wheezes Cardio Rate: regular rate MDM MDM MDM Narrative Medical decision making narrative: Patient presenting with sore throat. Differential includes allergies, GERD, epiglottitis, retropharyngeal abscess, peritonsillar abscess. Patient is already been tested for strep. She is also been tested for mono. Her HEENT exam is fairly normal however where she is pointing to her throat feeling sore as far down that I can see. After discussion we determined we get some basic lab work and CT of the soft tissue of the neck. I will medicate her with a GI cocktail and dexamethasone to see if this will help her pain. Patient states she has 1 small area of her left in the back of the right side of her throat. I counseled her that her blood work and imaging were normal. I recommended that she make ENT follow-up if soft symptoms. We went over symptom control and medication she should take. Discharged home in stable condition. Impression: 1. Pharyngitis Lab Data Attestation: I reviewed the patient's lab results. Labs: Laboratory Results - last 24 hr 12/12/23 10:35 WBC 7.6 RBC 5.24 Hgb 13.9 Hct 42.6 MCV 81.3 MCH 26.5 L MCHC 32.6 RDW Std Deviation 41.0 RDW Coeff of Antonio 14.1 Plt Count 284 MPV 9.6 Immature Gran % (Auto) 0.300 Neut % (Auto) 58.0 Lymph % (Auto) 31.2 [place] % (Auto) 8.4 Eos % (Auto) 1.6 Baso % (Auto) 0.5 Absolute Neuts (auto) 4.4 Absolute Lymphs (auto) 2.38 Nucleated RBC % 0 Sodium 138 Potassium 3.8 Chloride 107 Carbon Dioxide 27.0 Anion Gap 4 L BUN 10 Creatinine 0.85 Estim Creat Clear Calc 131.35 Est GFR (MDRD) Af Amer 101 Est GFR (MDRD) Non-Af 84 BUN/Creatinine Ratio 11.8 Glucose 92 Calcium 9.0 Radiography Diagnostic Testing: Clinical Impression(s) from Imaging Studies Soft Tissue Neck CT 12/12/23 10:24 IMPRESSION: Normal enhanced CT examination of the soft tissues of the neck. Electronically Signed: Bryan Link MD at 11:23 EDT Reading Location ID and State: [facility] / [place] , Service support , Discharge Plan Triage Chief Complaint: Sore Throat ED Provider: Ruben Hassan Dx/Rx/DC Orders Instructions: Self-Care for Sore Throats Prescriptions: No Action NK Primary Care Provider: Stacey Santacruz Referrals: Stacey Santacruz MD [Primary Care Provider] - Toro Mabry MD [Med Staff - Active Staff] - 3-5 Days Print Language: Polish Disposition Disposition: Home, Self Care
[2023-12-12 10:48] LABS: Absolute Lymphocyte Count 2.38 X10^3/uL (0.83-4.51); Absolute Neutrophil Count 4.4 X10^3/uL (2.0-7.7); Basophil# 0.04 X10^3/uL; Basophil% 0.5 % (0-1); Eosinophil# 0.12 X10^3/uL; Eosinophils% 1.6 % (0-5); Hematocrit 42.6 % (37-47); Hemoglobin 13.9 g/dL (12.0-15.0); Lymphocyte # 2.38 X10^3/ul (0.83-4.51); Lymphocyte % 31.2 % (19-41); Mean Corp Hgb Conc 32.6 g/dL (32-36); Mean Corpuscular Hgb 26.5 pg (27.0-32.0); Mean Corpuscular Volume 81.3 fL (81-99); Mean Platelet Vol. 9.6 fl (6.2-12.0); Monocyte# 0.64 X10^3/uL; Monocyte% 8.4 % (0-10); NRBC Flagged by Analyzer 0 % (0-5); Neutrophil # 4.42 X10^3/uL (2.7-7.7); Platelet Count 284 K/mm3 (150-450); RBC Distribution Width CV 14.1 % (11.6-14.6); Red Blood Count 5.24 M/mm3 (4.2-5.4); White Blood Count 7.6 K/mm3 (4.4-11.0)
[2023-12-12 11:00] LABS: Anion Gap 4 (5-15); BUN 10 mg/dL (7-18); BUN/Creat Ratio 11.8 RATIO (10-20); Chloride 107 mmol/L (98-107); Creatinine, Serum 0.85 mg/dL (0.55-1.02); EST Glomerular Filtration Rate 84 mL/min (>60); Est Glom Filt Rate - Afr Amer 101 mL/min (>60); Estimated Creatinine Clearance 131.35 ml/min; Glucose 92 mg/dL (74-106); Potassium 3.8 mmol/L (3.5-5.1); Sodium Level 138 mmol/L (136-145)
[2023-12-12 12:18] VITALS: BP 142/92; PULSE 72; RESP 16; TEMP 36.2; O2SAT 98
== END 2023-12-12 12:19 | disposition home or self-care (01) ==
PROVIDERS: Emergency Provider Student in an Organized Health Care Education/Training Program; PCP Family Medicine; Visit Provider Student in an Organized Health Care Education/Training Program
DX: J02.9 Acute pharyngitis, unspecified (principal)
CPT/HCPCS: 70491; 80048; 85025; 96374; 99283; Q9967; A4216

== ENCOUNTER → 2023-12-12 | Outpatient (CLI) | payer BC, SELFPAY ==
--- NOTE | 2023-12-12 15:13 | US_ITS ---
INDICATION: Right ovarian cyst; abnormal uterine bleeding EXAMINATION: Ultrasound US Pelvis Non OB Complete With Transvaginal Imaging TECHNIQUE: Transabdominal and transvaginal pelvic ultrasound was performed. Grayscale, spectral waveform, and color flow Doppler evaluation of the adnexa. COMPARISON: FINDINGS: UTERUS: Anteverted. The uterus measures 9.4 x 6.4 x 4.7 cm. There is no uterine mass. The endometrial stripe measures 12 mm in AP diameter which is within normal limits. RIGHT OVARY: 5.1 x 2.7 x 3.2 cm. Up to 1.3 cm cysts with multiple follicles. There is normal arterial inflow and venous outflow present in the right ovary. LEFT OVARY: 3.3 x 3.6 x 2.2 cm. Multiple follicles. There is normal arterial inflow and venous outflow present in the left ovary. FREE FLUID: None. US/Pelvic (Non ) IMPRESSION: Right ovarian cysts. Multiple follicles bilaterally. Electronically Signed: Dirk Hammond DO at 16:24 EDT Reading Location ID and State: [facility] / [place] Tel [phone], Service support ,
== END | disposition home or self-care (01) ==
LOC: US 15:09
PROVIDERS: PCP Family Medicine; Referring Provider Nurse Practitioner Family; Visit Provider Nurse Practitioner Family
DX: N93.8 Other specified abnormal uterine and vaginal bleeding (principal); N83.209 Unspecified ovarian cyst, unspecified side
CPT/HCPCS: 76856

== ENCOUNTER → 2024-07-13 | Outpatient (CLI) | payer BC, SELFPAY ==
[2024-07-13 18:33] LABS: Internal QC Validated? YES +Cl - CLEAR BKGD; Pregnancy, Serum, hCG Quali. NEGATIVE Negative
== END | disposition home or self-care (01) ==
PROVIDERS: PCP Family Medicine
DX: Z32.01 Encounter for pregnancy test, result positive (principal)
CPT/HCPCS: 36415; 84703

== ENCOUNTER → 2024-07-24 | Outpatient (CLI) | payer BC, SELFPAY ==
[2024-07-24 17:06] LABS: hCG Titer Quant., Serum < 1 mIU/mL (1-3)
== END | disposition home or self-care (01) ==
LOC: LAB 15:15
PROVIDERS: PCP Family Medicine; Referring Provider Obstetrics & Gynecology; Visit Provider Obstetrics & Gynecology
DX: N91.2 Amenorrhea, unspecified (principal); R10.2 Pelvic and perineal pain
CPT/HCPCS: 36415; 84702

== ENCOUNTER 2024-08-01 11:22 | Emergency (ER) | payer BC, SELFPAY ==
[2024-08-01 11:23] VITALS: BP 151/77; PULSE 61; RESP 16; TEMP 36.7; O2SAT 100; BMI 43.9
--- NOTE | 2024-08-01 12:21 | CT_ITS ---
EXAM: CT ABDOMEN AND PELVIS WITH INTRAVENOUS CONTRAST CLINICAL INDICATION: Right lower quadrant abdominal pain. TECHNIQUE: Helically acquired images were obtained of the abdomen and pelvis with intravenous contrast. This CT exam was performed using one or more of the following dose reduction techniques: automated exposure control, adjustment of the mA and/or kV according to patient size, and/or use of iterative reconstruction technique. CONTRAST: IV 100mL Isovue-370 RADIATION DOSE: CTDIvol = 14.63 mGy, DLP = 2091.58 mGy-cm COMPARISON: CT abdomen and pelvis without contrast 06/16/2020. FINDINGS: LOWER THORAX: Unremarkable. Lung bases are clear. No cardiomegaly. No significant pericardial effusion. ABDOMEN: LIVER: Unremarkable. Homogeneous. No focal mass. GALLBLADDER AND BILE DUCTS: Unremarkable. No calcified gallstones. No gallbladder distention or wall edema. No intra- or extrahepatic biliary ductal dilation. PANCREAS: Unremarkable. No focal cystic or solid mass. SPLEEN: Unremarkable. Normal size without focal cystic or solid mass. ADRENALS: Unremarkable. No nodules. KIDNEYS AND URETERS: Focal scarring in the right upper posterior renal parenchyma is presumably from old pyelonephritis. Small 3 mm nonobstructing stone in the right upper renal infundibulum. No right hydronephrosis. No stones or hydronephrosis in the left kidney. STOMACH AND BOWEL: Unremarkable. No stomach or bowel distention. No focal inflammatory change. PELVIS: APPENDIX: Normal appendix. BLADDER: Unremarkable. REPRODUCTIVE: Unremarkable as visualized. Normal anteverted uterus. Mildly prominent right ovary is unchanged. No left adnexal mass or cyst. ABDOMEN and PELVIS: INTRAPERITONEAL SPACE: Unremarkable. No ascites or other fluid collection. No free air. BONES/JOINTS: Unremarkable. No suspicious lytic or blastic abnormality. SOFT TISSUES: Unremarkable. No discrete abdominal or pelvic wall hernia. VASCULATURE: Unremarkable. Abdominal aorta is non-dilated. LYMPH NODES: Unremarkable. No enlarged lymph nodes. CT/Abdomen/Pelvis W IV Cont ONLY IMPRESSION: 1. No acute findings. 2. Mildly prominent right ovary is unchanged. No left adnexal mass or cyst. Electronically Signed: Ernst Griffin MD at 14:26 EST ,
--- NOTE | 2024-08-01 12:23 | ED.VIS.GI ---
HPI HPI - GI History of Present Illness Chief Complaint: Abd Pain Abdominal Pain/Flank Pain Onset: Today Context: Sudden Onset Timing: Intermittent Quality: - (Tightness) Location: RLQ Worsened by: Movement and - (Pushing on the right lower abdomen) Relieved by: Remaining Still Nausea/Vomiting/Emesis GI Symptom: Positive for Nausea; Negative for Vomiting Diarrhea/Melena/Hematochezia GI Symptom: Negative for Diarrhea, Melena or Hematochezia Associated Symptoms Associated Symptoms: Positive for Hematuria; Negative for Dysuria or Frequency LMP: 07/20/2024 Narrative Narrative: Patient presents with abdominal pain that began today. Patient states it began rather suddenly. Patient states that has been intermittent. Patient describes it as a tightness. Patient states it is mainly over the right lower abdomen. Patient states it is worse with movement and with pushing in the right lower abdomen. Patient states it is better when she is able to remain still. Patient admits to some nausea but denies any vomiting. Patient denies any diarrhea, melena, or hematochezia. Patient admits to some urinary frequency but denies any dysuria. Patient states she went to urgent care and was diagnosed with hematuria there and was referred to the emergency department here. Patient states her last menstrual period was 07/20/2024 but was 2 weeks late at that time. [facility] Medical History Ovarian cyst Active labor at term Infertility Thyroid disorder Superficial varicosities Macrosomia Obesity affecting Supervision of normal first Anxiety Home Medications ?Medication ?Instructions ?Recorded ?Last Taken ?Type levothyroxine 100 mcg tablet 100 mcg PO DAILY #30 tabs 12/27/23 Unknown Rx (Synthroid) Allergy/AdvReac Type Severity Reaction Status Date / Time No Known Allergies Allergy Verified 08/01/24 11:23 Family History Father Diabetes CAD (coronary artery disease) Hypertension Surgical History Delivery by section Social History adopted: No household members: spouse current occupational status: 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 pets and animals: Yes (avoid litter box) pets and animals: cat(s), dog(s) and fish Smoking Status: Never smoker alcohol intake: current alcohol intake frequency: a few times a month details: not while substance use type: does not use do you feel safe at home: Yes additional social history: Spouse-Jigar ROS ROS ED Constitutional Constitutional ED: Reports chills and subjective; Denies fever(s) Eyes Eyes: Denies blurry vision or change in vision ENT ENT ED: Reports rhinorrhea; Denies sore throat Cardiovascular Cardiovascular: Denies chest pain or palpitations Respiratory/Chest Respiratory/Chest: Denies cough or dyspnea Gastrointestinal Gastrointestinal: Reports abdominal pain and nausea; Denies diarrhea, melena or vomiting Genitourinary Genitourinary ED: Reports hematuria and urinary frequency; Denies dysuria Musculoskeletal Musculoskeletal: Denies back pain or neck pain Integumentary Denies abscess or rash Neurologic Neurologic: Denies headache(s) or weakness Allergic/Immunologic Allergic/Immunologic ED: Denies mouth swelling or urticaria EXAM Physical Exam Const Vital Signs: 08/01/24 11:23 08/01/24 13:22 Temperature 98.1 F Temperature Source Oral Pulse Rate 61 63 Respiratory Rate 16 14 Blood Pressure 151/77 H 145/89 H Blood Pressure Mean 101 107 Pulse Ox 100 100 Oxygen Delivery Method Room Air Room Air Positive well nourished and well developed Constitutional Narrative: BMI is 43.9 General Appearance ED: well developed and NAD HEENT Reports moist mucous membranes Neck supple and no JVD Resp normal respiratory effort and clear to auscultation bilaterally Cardio regular rate and regular rhythm GI non-distended Palpation: soft and tender RLQ; Negative for guarding or rebound tenderness present Neuro CN's II-XII intact bilaterally, moves all extremities and no sensory deficits noted Sensorium / Orientation: alert Motor Exam: strength 5/5 throughout Psych mental status grossly normal MDM MDM MDM Narrative Medical decision making narrative: Differential diagnosis includes appendicitis, ovarian cyst, ectopic , urinary tract infection, ureteral calculus, diverticulitis, colitis, and pyelonephritis. CBC will be obtained to assess for leukocytosis and anemia. Comprehensive metabolic profile will be obtained to assess for electrolyte abnormality, renal function, and hepatic function. Serum hCG will be obtained to assess for . CT scan of the abdomen pelvis will be obtained to assess for appendicitis, ovarian cyst, and ureteral calculus. Lab Data Attestation: I reviewed the patient's lab results. Lab results narrative: CBC was reviewed and was within normal limits. Comprehensive metabolic profile was reviewed and was within normal limits. Serum hCG was reviewed and was negative. Labs: Laboratory Results - last 24 hr 08/01/24 12:30 WBC 6.2 RBC 5.20 Hgb 14.7 Hct 43.8 MCV 84.2 MCH 28.3 MCHC 33.6 RDW Std Deviation 42.5 RDW Coeff of Antonio 13.8 Plt Count 273 MPV 9.6 Immature Gran % (Auto) 0.600 Neut % (Auto) 46.8 L Lymph % (Auto) 37.5 Howell % (Auto) 11.1 H Eos % (Auto) 3.4 Baso % (Auto) 0.6 Absolute Neuts (auto) 2.9 Absolute Lymphs (auto) 2.33 Nucleated RBC % 0 Sodium 142 Potassium 3.5 Chloride 109 H Carbon Dioxide 30.0 Anion Gap 3 L BUN 10 Creatinine 0.74 Estim Creat Clear Calc 144.07 Est GFR (MDRD) Af Amer 118 Est GFR (MDRD) Non-Af 98 BUN/Creatinine Ratio 13.5 Glucose 86 Calcium 8.8 Total Bilirubin 0.40 AST 12 L ALT 29 Alkaline Phosphatase 69 Total Protein 7.3 Albumin 3.5 Globulin 3.8 Albumin/Globulin Ratio 0.9 Serum , Qual NEGATIVE Radiography Diagnostic Testing: Clinical Impression(s) from Imaging Studies Abdomen/Pelvis CT 08/01/24 12:21 IMPRESSION: 1. No acute findings. 2. Mildly prominent right ovary is unchanged. No left adnexal mass or cyst. Electronically Signed: Ernst Griffin MD at 14:26 EST , CT scan of the abdomen and pelvis was obtained. There is no acute abnormality noted. There is mildly prominent right ovary. There is no left adnexal mass or cyst. This was interpreted by the radiologist and was also dependently reviewed by myself. Treatment and Re-Evaluation :: Patient was given IV fluids, morphine, and Zofran. Patient was resting comfortably on reevaluation. Patient was advised of her findings. Patient was instructed to take Tylenol or ibuprofen as needed for any pain or fevers. Patient was instructed to follow-up with her primary care physician in 5 to 7 days. Patient understood and was agreeable with the plan. All questions were answered. Discharge Plan Triage Chief Complaint: Abd Pain ED Provider: Khadar Abrams Dx/Rx/DC Orders Clinical Impression: Right lower quadrant abdominal pain Instructions: ED Abdominal Pain Unkn Cause Fem Prescriptions: No Action levothyroxine [Synthroid] 100 mcg tablet 100 mcg PO DAILY Qty: 30 12RF Primary Care Provider: Stacey Santacruz Referrals: Stacey Santacruz MD [Primary Care Provider] - 5-7 Days Print Language: Mosotho Disposition Disposition: Home, Self Care
[2024-08-01 12:47] LABS: Absolute Lymphocyte Count 2.33 X10^3/uL (0.83-4.51); Absolute Neutrophil Count 2.9 X10^3/uL (2.0-7.7); Basophil# 0.04 X10^3/uL; Basophil% 0.6 % (0-1); Eosinophil# 0.21 X10^3/uL; Eosinophils% 3.4 % (0-5); Hematocrit 43.8 % (37-47); Hemoglobin 14.7 g/dL (12.0-15.0); Lymphocyte # 2.33 X10^3/ul (0.83-4.51); Lymphocyte % 37.5 % (19-41); Mean Corp Hgb Conc 33.6 g/dL (32-36); Mean Corpuscular Hgb 28.3 pg (27.0-32.0); Mean Corpuscular Volume 84.2 fL (81-99); Mean Platelet Vol. 9.6 fl (6.2-12.0); Monocyte# 0.69 X10^3/uL; Monocyte% 11.1 % (0-10); NRBC Flagged by Analyzer 0 % (0-5); Neutrophil % 46.8 % (47-70); Platelet Count 273 K/mm3 (150-450); RBC Distribution Width CV 13.8 % (11.6-14.6); RBC Distribution Width SD 42.5 fl (35.1-43.9); White Blood Count 6.2 K/mm3 (4.4-11.0)
[2024-08-01 13:06] LABS: Internal QC Validated? YES +Cl - CLEAR BKGD; Pregnancy, Serum, hCG Quali. NEGATIVE Negative
[2024-08-01 13:07] LABS: ALB/GLOB Ratio 0.9 RATIO (0.9-2.4); AST(SGOT) 12 U/L (15-37); Alanine Aminotransfer ALT/SGPT 29 U/L (13-56); Albumin, Serum 3.5 g/dL (3.2-5.0); Alkaline Phosphatase 69 U/L (45-117); Anion Gap 3 (5-15); BUN 10 mg/dL (7-18); BUN/Creat Ratio 13.5 RATIO (10-20); Calcium,Total 8.8 mg/dL (8.5-10.1); Chloride 109 mmol/L (98-107); Creatinine, Serum 0.74 mg/dL (0.55-1.02); EST Glomerular Filtration Rate 98 mL/min (>60); Est Glom Filt Rate - Afr Amer 118 mL/min (>60); Estimated Creatinine Clearance 144.07 ml/min; Globulin 3.8 g/dL (2.2-4.2); Glucose 86 mg/dL (74-106); Potassium 3.5 mmol/L (3.5-5.1); Protein, Total 7.3 g/dL (6.4-8.2); Sodium Level 142 mmol/L (136-145)
[2024-08-01] MEDS: 0.9% Normal Saline (1000mL) 1,000 ML 999 ML IV (13:08)
[2024-08-01] MEDS: Morphine 4 MG/ML Syringe IV (13:08)
[2024-08-01] MEDS: Ondansetron 4 MG/2 ML Vial IV (13:09)
[2024-08-01 13:22] VITALS: BP 145/89; PULSE 63; RESP 14; O2SAT 100
[2024-08-01 14:57] VITALS: BP 145/89; PULSE 63; RESP 14; TEMP 36.7; O2SAT 100
== END 2024-08-01 14:57 | disposition home or self-care (01) ==
PROVIDERS: Emergency Provider Emergency Medicine; PCP Family Medicine; Visit Provider Emergency Medicine
DX: R10.31 Right lower quadrant pain (principal); R11.0 Nausea; R31.9 Hematuria, unspecified; R35.0 Frequency of micturition
CPT/HCPCS: 74177; 80053; 84703; 85025; 96361; 96374; 96375; 99283; Q9967; J2405

== ENCOUNTER → 2024-08-26 | Outpatient (CLI) | payer BC, SELFPAY ==
[2024-08-26 18:20] LABS: Internal QC Validated? YES +Cl - CLEAR BKGD; Pregnancy, Serum, hCG Quali. POSITIVE Negative
== END | disposition home or self-care (01) ==
PROVIDERS: PCP Family Medicine; Referring Provider Nurse Practitioner Family; Visit Provider Nurse Practitioner Family
DX: Z34.90 Encounter for supervision of normal pregnancy, unspecified, unspecified trimester (principal)
CPT/HCPCS: 84703

== ENCOUNTER → 2024-08-31 | Outpatient (CLI) | payer BC, SELFPAY ==
[2024-08-31 10:05] LABS: hCG Titer Quant., Serum 25 mIU/mL (1-3)
== END | disposition home or self-care (01) ==
LOC: BWCLAB 08:33
PROVIDERS: PCP Family Medicine; Referring Provider Advanced Practice Midwife; Visit Provider Advanced Practice Midwife
DX: N91.2 Amenorrhea, unspecified (principal)
CPT/HCPCS: 36415; 84702

== ENCOUNTER → 2024-09-02 | Outpatient (CLI) | payer BC, SELFPAY ==
[2024-09-02 11:06] LABS: hCG Titer Quant., Serum 13 mIU/mL (<9 non-preg)
== END | disposition home or self-care (01) ==
LOC: BWCLAB 08:13
PROVIDERS: Advanced Practice Midwife; PCP Family Medicine; Referring Provider Obstetrics & Gynecology; Visit Provider Obstetrics & Gynecology
DX: N91.2 Amenorrhea, unspecified (principal)
CPT/HCPCS: 36415; 84702

== ENCOUNTER 2024-09-03 07:59 | Emergency (ER) | payer BC, SELFPAY ==
[2024-09-03 08:00] VITALS: BP 146/95; PULSE 104; RESP 16; TEMP 36.4; O2SAT 95; BMI 45.6
--- NOTE | 2024-09-03 08:30 | US_ITS ---
PROCEDURE: TRANSVAGINAL W/PREG US REASON FOR EXAM: Heavy bleeding. Missed . COMPARISON: None. FINDINGS: Comments: LMP: July 20, 2024. Number of Gestational Sacs: Nonvisualized. Gestational Sac Shape: Normal Yolk Sac: Nonvisualized. Placenta: Nonvisualized Amniotic Fluid Volume: Nonvisualized Uterine Abnormalities: Maternal uterus is unremarkable. Uterus measures 9.6 cm x 5.5 cm x 4.3 cm. There is thickening of the endometrium measuring 2.1 cm. Retained products of conception should be ruled out. Ovaries / Adnexa: Right ovary measures 3.4 cm x 2.4 cm x 2.1 cm. Left ovary was not visualized. US/Transvaginal w/Preg US IMPRESSION: No intrauterine gestation is seen. The endometrium is thickened measuring 2.1 cm. Retained products of conception should be ruled out. Reading Location: [id number]
--- NOTE | 2024-09-03 08:32 | ED.VIS.FEGU ---
HPI HPI - Female History of Present Illness Chief Complaint: Vag Bld, Preg Narrative Narrative: 29-year-old female, G2, P1 at approximately 5 weeks gestation presents with vaginal bleeding and cramping that she has had for the last 5 to 6 days. She believes that she is undergoing a miscarriage. She went to her HR ANALYST in [place] on Saturday, 4 days ago and had quantitative beta-hCG levels drawn. It was low at 25. She started having increased bleeding on Saturday, 2 days ago. She states that she had a quantitative measurement drawn on Saturday and it was low at 13. Since then, the bleeding has increased over the last day. She is having heavier flow than her normal menses. She is experiencing vaginal and pelvic cramping and passing tissue and clots. She denies any chest pain or shortness of breath, may have started feeling lightheaded yesterday. She presents wanting to be checked because of the heavy vaginal bleeding. [facility] Medical History Ovarian cyst Active labor at term Infertility Thyroid disorder Superficial varicosities Macrosomia Obesity affecting Supervision of normal first Anxiety Home Medications ?Medication ?Instructions ?Recorded ?Last Taken ?Type levothyroxine 100 mcg tablet 100 mcg PO DAILY #30 tabs 12/27/23 Unknown Rx (Synthroid) oxycodone-acetaminophen 5 mg-325 1 tab PO Q6H PRN pain 3 days #12 09/03/24 Unknown Rx mg tablet (Percocet) tabs [id number] 1 mg 1 tab PO DAILY 09/03/24 Unknown History tablet Allergy/AdvReac Type Severity Reaction Status Date / Time No Known Allergies Allergy Verified 09/03/24 08:02 Family History Father Diabetes CAD (coronary artery disease) Hypertension Surgical History Delivery by section Social History adopted: No household members: spouse 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 No chest pain or shortness of breath. No current lightheadedness or dizziness. No nausea or vomiting. EXAM Physical Exam Narrative Exam Narrative: Afebrile. Vital signs noted. Nontoxic-appearing. Cardiovascular examination reveals mild tachycardia 104 bpm. Lungs are clear to auscultation bilaterally. Abdomen is soft with mild tenderness to palpation in the pelvic/suprapubic area. Neurological examination nonfocal and nonlateralizing. Const Vital Signs: 09/03/24 08:00 09/03/24 10:34 Temperature 97.5 F L Temperature Source Temporal Pulse Rate 104 H 80 Respiratory Rate 16 Blood Pressure 146/95 H 139/122 H Blood Pressure Mean 112 127 Pulse Ox 95 98 Oxygen Delivery Method Room Air Room Air MDM MDM MDM Narrative Medical decision making narrative: Differential diagnosis includes but not limited to miscarriage versus retained products of conception versus anemia requiring transfusion from miscarriage. I did review her diagnostic studies in the EMR and she did have a quantitative measurement of 25 and then at 13. I will obtain a level today as well. I do not feel that ABO Rh is indicated because she has results indicating that she has a positive from last year. Chaperoned pelvic examination will be performed as well. I reviewed her laboratory work and she has normal white count of 8.2 with hemoglobin normal at 14.4 and hematocrit 42.5, platelet count normal at 231. LFTs are grossly unremarkable, BUN normal at 12 and creatinine 0.7. hCG quantitative measurement is 6, down from 13 when compared to prior labs. I reviewed the radiology report of the ultrasound which shows a thickened endometrium but no intrauterine gestation. As she had downtrending beta-hCG's which continues to trend downward, it was thought that this was a nonviable previously and that she is undergoing miscarriage, I discussed patient with Dr. Reyes. She would like the patient to be administered 600 mcg of Cytotec to help with the vaginal bleeding and cramping. As she has a normal hemoglobin, was not felt that she requires D&C emergently, that she should be discharged for outpatient ultrasound early next week, 4 to 5 days from now. She was given return instructions such as saturation of more than 2 pads an hour with her vaginal bleeding, fever, or increased pain. HR ANALYST was also agreeable with the patient be given stronger pain medications. She was given a prescription for 12 Percocet tablets. All questions answered. Return instructions reviewed. Disposition is discharged home in stable condition. History & Record Review Discussion w/independent historian: Patient and Family Additional record(s) reviewed:: Prior labs Lab Data Attestation: I reviewed the patient's lab results. Labs: Laboratory Results - last 24 hr 09/03/24 09:23 WBC 8.2 RBC 5.03 Hgb 14.4 Hct 42.5 MCV 84.5 MCH 28.6 MCHC 33.9 RDW Std Deviation 42.9 RDW Coeff of Antonio 14.0 Plt Count 231 MPV 9.8 Immature Gran % (Auto) 0.200 Neut % (Auto) 68.6 Lymph % (Auto) 22.3 Burnett % (Auto) 6.5 Eos % (Auto) 2.2 Baso % (Auto) 0.2 Absolute Neuts (auto) 5.6 Absolute Lymphs (auto) 1.83 Nucleated RBC % 0 Sodium 141 Potassium 3.5 Chloride Direct 108 Carbon Dioxide 22.7 Anion Gap 11 BUN 12 Creatinine 0.7 Estim Creat Clear Calc 155.67 Est GFR (MDRD) Non-Af 120 BUN/Creatinine Ratio 17.0 Glucose 142 H Calcium 8.9 Total Bilirubin 0.20 AST 15 ALT 22 Alkaline Phosphatase 60 Total Protein 6.3 Albumin 3.8 Globulin 2.5 Albumin/Globulin Ratio 1.5 HCG, Quant 6 Radiography Diagnostic Testing: Clinical Impression(s) from Imaging Studies Obstetrics Ultrasound 09/03/24 08:30 IMPRESSION: No intrauterine gestation is seen. The endometrium is thickened measuring 2.1 cm. Retained products of conception should be ruled out. Reading Location: [id number] Discharge Plan Triage Chief Complaint: Vag Bld, Preg ED Provider: Ernst Garcia Dx/Rx/DC Orders Clinical Impression: Miscarriage, Vaginal bleeding Instructions: Understanding Miscarriage: Emotions, ED Miscarriage Spontaneous Prescriptions: New oxycodone-acetaminophen [Percocet] 5-325 mg tablet 1 tab PO Q6H PRN (Reason: pain) 3 Days Qty: 12 0RF No Action levothyroxine [Synthroid] 100 mcg tablet 100 mcg PO DAILY Qty: 30 12RF [id number] 1 mg tablet 1 tab PO DAILY Primary Care Provider: Stacey Santacruz Referrals: Stacey Santacruz MD [Primary Care Provider] - Prudence Law DO [Med Staff - Active Staff] - 3-5 Days Activity Restrictions/Additional Instructions: Follow-up with your HR ANALYST on Saturday or Saturday for repeat ultrasound. Return to the emergency department with full saturation of more than 2 pads an hour with vaginal bleeding, new or worsening symptoms including fever and increased pain. Print Language: Maltese Disposition Disposition: Home, Self Care
[2024-09-03 09:43] LABS: Absolute Lymphocyte Count 1.83 X10^3/uL (0.83-4.51); Absolute Neutrophil Count 5.6 X10^3/uL (2.0-7.7); Basophil# 0.02 X10^3/uL; Basophil% 0.2 % (0-1); Eosinophil# 0.18 X10^3/uL; Eosinophils% 2.2 % (0-5); Hematocrit 42.5 % (37-47); Hemoglobin 14.4 g/dL (12.0-15.0); Lymphocyte # 1.83 X10^3/ul (0.83-4.51); Lymphocyte % 22.3 % (19-41); Mean Corp Hgb Conc 33.9 g/dL (32-36); Mean Corpuscular Hgb 28.6 pg (27.0-32.0); Mean Corpuscular Volume 84.5 fL (81-99); Mean Platelet Vol. 9.8 fl (6.2-12.0); Monocyte# 0.53 X10^3/uL; Monocyte% 6.5 % (0-10); NRBC Flagged by Analyzer 0 % (0-5); Neutrophil # 5.62 X10^3/uL (2.7-7.7); Neutrophil % 68.6 % (47-70); Platelet Count 231 K/mm3 (150-450); RBC Distribution Width SD 42.9 fl (35.1-43.9); Red Blood Count 5.03 M/mm3 (4.2-5.4); White Blood Count 8.2 K/mm3 (4.4-11.0)
[2024-09-03 10:15] LABS: ALB/GLOB Ratio 1.5 RATIO (0.9-2.4); AST(SGOT) 15 U/L (<=31); Alanine Aminotransfer ALT/SGPT 22 U/L (<=34); Albumin, Serum 3.8 g/dL (3.5-5.0); Alkaline Phosphatase 60 U/L (35-104); Anion Gap 11 (5-15); BUN 12 mg/dL (4-19); Calcium 8.9 mg/dL (7.6-11.0); Carbon Dioxide 22.7 mmol/L (22.0-29.0); Chloride 108 mmol/L (96-108); Creatinine, Serum 0.7 mg/dL (0.6-1.0); EST Glomerular Filtration Rate 120 (>60); Estimated Creatinine Clearance 155.67 ml/min; Globulin 2.5 g/dL (2.2-4.2); Glucose 142 mg/dL (70-99); Potassium 3.5 mmol/L (3.3-5.1); Protein, Total 6.3 g/dL (5.9-8.4); Sodium Level 141 mmol/L (133-145)
[2024-09-03 10:21] LABS: hCG Titer Quant., Serum 6 mIU/mL (<9 non-preg)
[2024-09-03 10:34] VITALS: BP 139/122; PULSE 80; O2SAT 98
[2024-09-03] MEDS: miSOPROStol 200 MCG Tablet 600 MCG PO (10:54)
[2024-09-03 10:57] VITALS: BP 139/98; PULSE 80; RESP 16; TEMP 36.6; O2SAT 98
== END 2024-09-03 10:57 | disposition home or self-care (01) ==
PROVIDERS: Emergency Provider Emergency Medicine; PCP Family Medicine; Visit Provider Emergency Medicine
DX: O03.9 Complete or unspecified spontaneous abortion without complication (principal); O26.891 Other specified pregnancy related conditions, first trimester; R10.2 Pelvic and perineal pain; O99.281 Endocrine, nutritional and metabolic diseases complicating pregnancy, first trimester; E07.9 Disorder of thyroid, unspecified; Z79.890 Hormone replacement therapy; Z3A.01 Less than 8 weeks gestation of pregnancy
CPT/HCPCS: 76817; 80053; 84702; 85025; 99283; A4216

== ENCOUNTER → 2024-09-07 | Outpatient (CLI) | payer BC, SELFPAY ==
--- NOTE | 2024-09-07 11:32 | US_ITS ---
PROCEDURE: TRANSVAGINAL W/PREG US REASON FOR EXAM: miscarriage fu. Reportedly, 7 weeks and 0 days by LMP. Beta hCG not provided, previously reported as 13 on 09/01/2024. TECHNIQUE: Transvaginal pelvic ultrasound COMPARISON: 09/03/2024. FINDINGS: Measurements: Uterus: 9.0 x 5.9 x 4.9 cm. Endometrial Thickness: 8 mm. Right Ovary: 2.7 x 1.7 x 1.6 cm. Left Ovary: 3.9 x 2.6 x 1.9 cm. Uterus: Unremarkable. Tiny cervical likely nabothian cyst. Endometrium: Unremarkable, homogeneously echogenic. No abnormal vascularity detected. Right ovary: Unremarkable. Left ovary: Unremarkable. Other adnexal findings: None. Free fluid: None visualized US/Transvaginal w/Preg US IMPRESSION: 1. No intrauterine is identified. In the setting of a positive pregn edwige test, unless prior outside imaging has previously established an intrauterine location, findings technically represen t of unknown location with differential considerations including normal early , nonviable , completed miscarriage, or nonvisualized ectopic. Recommend continued close clinical and imaging follow-up including serial beta HCG. 2. Endometrial thickness has decreased, now within normal limits, and without d etected abnormal vascularity, arguing against retained products of conception. 3. Additional description as above. Reading Location: [id number]
== END | disposition home or self-care (01) ==
LOC: US 11:31
PROVIDERS: PCP Family Medicine; Referring Provider Obstetrics & Gynecology; Visit Provider Obstetrics & Gynecology
DX: O03.89 Complete or unspecified spontaneous abortion with other complications (principal); N93.9 Abnormal uterine and vaginal bleeding, unspecified
CPT/HCPCS: 76817

== ENCOUNTER 2024-09-24 13:28 | Emergency (ER) | payer BC, SELFPAY ==
[2024-09-24 13:28] VITALS: BP 158/94; PULSE 122; RESP 17; TEMP 36.9; O2SAT 99; BMI 44.1
--- NOTE | 2024-09-24 14:07 | EX.ED.DYSGE1 ---
HPI History of Present Illness Chief Complaint: Flank Pain Informant: patient Onset/Context/Timing Onset: Today Context: Gradual Onset Timing: Continuous Quality: Pinching Location: Right flank Worsened by: Deep breathing, bending, walking Relieved by: Rest Narrative Narrative: Patient presents with right flank pain that began this morning. Patient is that is gradually gotten worse. Patient states it is over her entire right side. Patient describes it as pinching. Patient states that later in the day she started feeling tired. Patient states she took a nap and felt better after that. Patient states that her fatigue has gotten worse again. Patient also admits to some facial flushing and states her face feels hot. Patient denies any nausea or vomiting. Patient denies any dysuria or hematuria. PFSH PFSH Medical History Ovarian cyst Active labor at term Infertility Thyroid disorder Superficial varicosities Macrosomia Obesity affecting Supervision of normal first Anxiety Home Medications ?Medication ?Instructions ?Recorded ?Last Taken ?Type levothyroxine 100 mcg tablet 100 mcg PO DAILY #30 tabs 12/27/23 Unknown Rx (Synthroid) [id number]-[id number] 1 mg 1 tab PO DAILY 09/03/24 Unknown History tablet hydrocodone-acetaminophen 5-325mg 1 tab PO Q6H PRN PRN Pain 3 days 09/24/24 Unknown Rx 5mg-325mg #10 TABLETS Allergy/AdvReac Type Severity Reaction Status Date / Time tetracycline Allergy Mild Hives Verified 09/24/24 13:33 Family History Father Diabetes CAD (coronary artery disease) Hypertension Surgical History Delivery by section Social History adopted: No household members: spouse current occupational status: 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 pets and animals: Yes (avoid litter box) pets and animals: cat(s), dog(s) and fish Smoking Status: Never smoker alcohol intake: current alcohol intake frequency: a few times a month details: not while substance use type: does not use do you feel safe at home: Yes additional social history: Spouse-Jigar ROS ROS ED Constitutional Constitutional ED: Reports fever(s) and subjective; Denies chills Eyes Eyes: Denies blurry vision or change in vision ENT ENT ED: Denies rhinorrhea or sore throat Cardiovascular Cardiovascular: Denies chest pain or palpitations Respiratory/Chest Respiratory/Chest: Denies cough or dyspnea Gastrointestinal Gastrointestinal: Reports abdominal pain; Denies nausea or vomiting Genitourinary Genitourinary ED: Denies dysuria or hematuria Musculoskeletal Musculoskeletal: Reports back pain and neck pain Integumentary Denies abscess or rash Neurologic Neurologic: Denies headache(s) or weakness Allergic/Immunologic Allergic/Immunologic ED: Denies mouth swelling or urticaria EXAM Physical Exam Const Vital Signs: 09/24/24 13:28 09/24/24 15:28 Temperature 98.4 F Temperature Source Temporal Pulse Rate 122 H 82 Respiratory Rate 17 14 Blood Pressure 158/94 H 137/76 H Blood Pressure Mean 115 96 Pulse Ox 99 98 Oxygen Delivery Method Room Air Room Air Positive well nourished and well developed Constitutional Narrative: BMI is 44.1 General Appearance ED: well developed and NAD HEENT Reports moist mucous membranes Neck supple and no JVD Resp normal respiratory effort and clear to auscultation bilaterally Cardio regular rhythm Rate: tachycardic GI non-distended Palpation: soft and tender RLQ and RUQ Back/Spine General Back: CVA tenderness right Extremity normal to inspection Neuro oriented x3, CN's II-XII intact bilaterally and no sensory deficits noted Sensorium / Orientation: alert Motor Exam: strength 5/5 throughout Psych mental status grossly normal MDM MDM MDM Narrative Medical decision making narrative: Differential diagnosis includes ureteral calculus, pyelonephritis, diverticulitis, colitis, cholecystitis, cholelithiasis, peptic ulcer disease, duodenal ulcer, and viral illness. CT scan of the abdomen and pelvis will be obtained to assess for pyelonephritis, ureteral calculus, cholecystitis, and cholelithiasis. CBC will be obtained to assess for leukocytosis and anemia. Comprehensive metabolic profile will be obtained to assess for electrolyte abnormality and renal function. Lipase will be obtained to assess for pancreatitis. Serum hCG will be obtained to assess for . Urinalysis will be obtained to assess for urinary tract infection and hematuria. Lab Data Attestation: I reviewed the patient's lab results. Lab results narrative: CBC was reviewed. There is a slight leukocytosis of 11.1. The remainder is within normal limits. Basic metabolic profile was reviewed. Potassium is slightly low at 3.2. Glucose was slightly elevated at 115. The remainder is within normal limits. Lipase was reviewed and was normal at 19. Serum hCG was reviewed and was negative. Urinalysis was reviewed. There were positive nitrates and 2+ bacteria. However leukocyte esterase was negative and there are 0-5 white blood cells noted. Labs: Laboratory Results - last 24 hr 09/24/24 09/24/24 13:45 15:28 WBC 11.1 H RBC 4.79 Hgb 13.6 Hct 40.4 MCV 84.3 MCH 28.4 MCHC 33.7 RDW Std Deviation 41.1 RDW Coeff of Antonio 13.4 Plt Count 228 MPV 9.9 Immature Gran % (Auto) 0.400 Neut % (Auto) 73.9 H Lymph % (Auto) 15.3 L Cooper % (Auto) 9.3 Eos % (Auto) 0.7 Baso % (Auto) 0.4 Absolute Neuts (auto) 8.2 H Absolute Lymphs (auto) 1.70 Nucleated RBC % 0 Sodium 137 Potassium 3.2 L Chloride 102 Carbon Dioxide 22.2 Anion Gap 13 BUN 12 Creatinine 0.81 Estim Creat Clear Calc 131.91 Est GFR (MDRD) Non-Af 100 BUN/Creatinine Ratio 14.6 Glucose 115 H Calcium 8.7 Total Bilirubin 0.44 AST 15 ALT 18 Alkaline Phosphatase 56 Total Protein 6.4 Albumin 3.9 Globulin 2.5 Albumin/Globulin Ratio 1.6 Lipase 19 Serum , Qual NEGATIVE Urine Color Yellow Urine Clarity Clear Urine pH 6.5 Ur Specific [place] 1.010 Urine Protein 30 H Urine Glucose (UA) Normal Urine Ketones Negative Urine Occult Blood 50 H Urine Nitrite Positive H Urine Bilirubin Negative Urine Urobilinogen Normal Ur Leukocyte Esterase Negative Urine RBC 5-10 SEEN Urine WBC 0-5 SEEN Ur Squamous Epith Cells 0-5 SEEN Urine Bacteria 2+ Urine Mucus 0 SEEN Radiography Diagnostic Testing: Clinical Impression(s) from Imaging Studies Abdomen/Pelvis CT 09/24/24 15:29 IMPRESSION: NO ACUTE FINDINGS AT THE ABDOMEN OR PELVIS ON NONCONTRAST CT. Reading Location: [facility] CT scan of the abdomen and pelvis was obtained. There are no acute findings noted. There is no evidence of ureteral calculus. There is no evidence of pyelonephritis. There is no free air or free fluid. This was interpreted by the radiologist and was also independently reviewed by myself. Treatment and Re-Evaluation :: The patient was given IV fluids, morphine, and Zofran. Patient was feeling better on reevaluation. Patient was advised of her findings. Patient was instructed to take Tylenol or ibuprofen as needed for any fevers. Patient was given a prescription for a short course of [place]. Patient was instructed to follow-up with her primary care physician for further evaluation in 5 to 7 days. Patient understood and was agreeable with the plan. All questions were answered. Discharge Plan Triage Chief Complaint: Flank Pain ED Provider: Khadar Abrams Dx/Rx/DC Orders Clinical Impression: Acute right flank pain, Adult BMI 40.0-44.9 kg/sq m Instructions: ED Flank Pain, Uncertain Cause Prescriptions: New hydrocodone-acetaminophen 5-325 mg tablet 1 tab PO Q6H PRN PRN (Reason: Pain) 3 Days Qty: 10 0RF No Action levothyroxine [Synthroid] 100 mcg tablet 100 mcg PO DAILY Qty: 30 12RF [id number] 1 mg tablet 1 tab PO DAILY Primary Care Provider: Stacey Santacruz Referrals: Stacey Santacruz MD [Primary Care Provider] - 5-7 Days Print Language: Azeri Disposition Disposition: Home, Self Care
[2024-09-24] MEDS: Morphine 4 MG/ML Syringe IV (14:33)
[2024-09-24] MEDS: 0.9% Normal Saline (1000mL) 1,000 ML 1000 ML IV (14:33)
[2024-09-24] MEDS: Ondansetron 4 MG/2 ML Vial IV (14:33)
[2024-09-24 14:38] LABS: Absolute Neutrophil Count 8.2 X10^3/uL (2.0-7.7); Basophil# 0.04 X10^3/uL; Basophil% 0.4 % (0-1); Eosinophil# 0.08 X10^3/uL; Eosinophils% 0.7 % (0-5); Hematocrit 40.4 % (37-47); Hemoglobin 13.6 g/dL (12.0-15.0); Lymphocyte % 15.3 % (19-41); Mean Corp Hgb Conc 33.7 g/dL (32-36); Mean Corpuscular Hgb 28.4 pg (27.0-32.0); Mean Corpuscular Volume 84.3 fL (81-99); Mean Platelet Vol. 9.9 fl (6.2-12.0); Monocyte# 1.04 X10^3/uL; Monocyte% 9.3 % (0-10); NRBC Flagged by Analyzer 0 % (0-5); Neutrophil # 8.22 X10^3/uL (2.7-7.7); Neutrophil % 73.9 % (47-70); Platelet Count 228 K/mm3 (150-450); RBC Distribution Width CV 13.4 % (11.6-14.6); RBC Distribution Width SD 41.1 fl (35.1-43.9); Red Blood Count 4.79 M/mm3 (4.2-5.4); White Blood Count 11.1 K/mm3 (4.4-11.0)
[2024-09-24 15:06] LABS: ALB/GLOB Ratio 1.6 RATIO (0.9-2.4); AST(SGOT) 15 U/L (<=31); Alanine Aminotransfer ALT/SGPT 18 U/L (<=34); Albumin, Serum 3.9 g/dL (3.5-5.0); Alkaline Phosphatase 56 U/L (35-104); Anion Gap 13 (5-15); BUN 12 mg/dL (4-19); BUN/Creat Ratio 14.6 RATIO (10-20); Calcium,Total 8.7 mg/dL (7.6-11.0); Carbon Dioxide 22.2 mmol/L (21.0-32.0); Chloride 102 mmol/L (98-108); Creatinine, Serum 0.81 mg/dL (0.70-1.20); EST Glomerular Filtration Rate 100 (>60); Estimated Creatinine Clearance 131.91 ml/min (50-250); Globulin 2.5 g/dL (2.2-4.2); Glucose 115 mg/dL (70-99); Lipase 19 U/L (13-75); Potassium 3.2 mmol/L (3.3-5.1); Protein, Total 6.4 g/dL (5.9-8.4); Sodium Level 137 mmol/L (133-145); Total Bilirubin 0.44 mg/dL (0.00-1.30)
[2024-09-24 15:21] LABS: Internal QC Validated? YES +Cl - CLEAR BKGD; Pregnancy, Serum, hCG Quali. NEGATIVE Negative
[2024-09-24 15:28] VITALS: BP 137/76; PULSE 82; RESP 14; O2SAT 98
--- NOTE | 2024-09-24 15:29 | CT_ITS ---
PROCEDURE: ABDOMEN/PELVIS WITHOUT CONT 09/24/2024 REASON FOR EXAM: 29-year-old female, right flank pain beginning this morning, history of C- section and kidney infection. TECHNIQUE: Abdomen and pelvis CT without intravenous contrast. Coronal and Sagittal reconstruction series were provided. One or more dose reduction techniques were used (e.g., Automated exposure control, adjustment of the mA and/or kV according to patient size, use of iterative reconstruction technique). PATIENT PREPARATION: Per protocol ORAL CONTRAST TYPE: None. COMPARISON: CT abdomen pelvis 08/01/2024. FINDINGS: Noncontrast technique limits evaluation of the abdominal and pelvic viscera. Lung bases: The heart is normal in size. The lung bases are clear. Liver: The unopacified liver is normal in size. No biliary ductal dilation. Gallbladder: No radiopaque stones within the gallbladder. Spleen: Pancreas: The unopacified pancreas is unremarkable. Adrenals: Kidneys: Stable nonobstructing right upper pole renal calculus with associated renal cortical scarring. New, tiny nonobstructing left lower pole renal calculus. Bladder: The urinary bladder is minimally distended and unremarkable. Reproductive Organs: Unremarkable. Bowel: The bowel loops are normal in caliber. No ascites or pneumoperitoneum. Normal appendix. Lymph nodes: No suspicious lymphadenopathy. Vasculature: The abdominal aorta and IVC contours are normal. Noncontrast technique limits evaluation. 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 Mild thoracolumbar spondylosis. No aggressive osseous lesions. Ornamental jewelry within the bilateral upper chest. CT/Abdomen/Pelvis without Cont IMPRESSION: NO ACUTE FINDINGS AT THE ABDOMEN OR PELVIS ON NONCONTRAST CT. Reading Location: [facility]
[2024-09-24 15:37] LABS: Mucous, Urine 0 SEEN /hpf (<or=2+)
[2024-09-24 15:40] LABS: Color, Urine Yellow (Yellow); Glucose, Dipstick Normal (Normal); Ketone-Dipstick Negative (Negative); Leukocyte Esterase-Dipstick Negative /ul (Negative); Nitrite-Dipstick Positive (Negative); Occult Blood-Urine 50 /ul (Negative); Protein-Dipstick 30 mg/dl (Negative); Urine Bilirubin Dipstick Negative (Negative); Urine Clarity Clear (Clear); Urine Urobilinogen Normal (Normal); Urine pH 6.5 (5.0 - 8.0)
[2024-09-24 16:10] LABS: Bacteria 2+ /hpf (None Seen); Squamous Epithelial Cells - UA 0-5 SEEN /hpf (5-10)
[2024-09-24 16:11] LABS: White Blood Cells 0-5 SEEN /hpf (0-5)
[2024-09-24 16:12] LABS: Red Blood Cells-Urine 5-10 SEEN /hpf (0-5)
== END 2024-09-24 17:20 | disposition home or self-care (01) ==
PROVIDERS: Emergency Provider Emergency Medicine; PCP Family Medicine; Referring Provider Emergency Medicine; Visit Provider Emergency Medicine
DX: R10.9 Unspecified abdominal pain (principal); E07.9 Disorder of thyroid, unspecified; Z79.890 Hormone replacement therapy
CPT/HCPCS: 74176; 80053; 81001; 83690; 84703; 85025; 96361; 96374; 96375; 99283; A4216; J2405

== ENCOUNTER → 2024-09-30 | Outpatient (CLI) | payer BC, SELFPAY ==
[2024-09-30 14:17] LABS: Mucous, Urine 0 SEEN /hpf (<or=2+)
[2024-09-30 15:52] LABS: Absolute Lymphocyte Count 1.55 X10^3/uL (0.83-4.51); Absolute Neutrophil Count 8.4 X10^3/uL (2.0-7.7); Basophil# 0.04 X10^3/uL; Basophil% 0.4 % (0-1); Eosinophil# 0.06 X10^3/uL; Eosinophils% 0.5 % (0-5); Hematocrit 42.7 % (37-47); Hemoglobin 14.5 g/dL (12.0-15.0); Lymphocyte # 1.55 X10^3/ul (0.83-4.51); Lymphocyte % 13.8 % (19-41); Mean Corpuscular Hgb 28.5 pg (27.0-32.0); Mean Corpuscular Volume 83.9 fL (81-99); Mean Platelet Vol. 9.8 fl (6.2-12.0); Monocyte# 1.17 X10^3/uL; Monocyte% 10.4 % (0-10); NRBC Flagged by Analyzer 0 % (0-5); Neutrophil # 8.35 X10^3/uL (2.7-7.7); Neutrophil % 74.5 % (47-70); Platelet Count 264 K/mm3 (150-450); RBC Distribution Width CV 13.2 % (11.6-14.6); RBC Distribution Width SD 40.5 fl (35.1-43.9); Red Blood Count 5.09 M/mm3 (4.2-5.4); White Blood Count 11.2 K/mm3 (4.4-11.0)
[2024-09-30 16:42] LABS: Color, Urine Yellow (Yellow); Glucose, Dipstick Normal (Normal); Ketone-Dipstick Negative (Negative); Leukocyte Esterase-Dipstick Negative /ul (Negative); Nitrite-Dipstick Negative (Negative); Occult Blood-Urine 250 /ul (Negative); Protein-Dipstick 15 mg/dl (Negative); Specific Gravity, Urine 1.015 (1.002-1.030); Urine Bilirubin Dipstick Negative (Negative); Urine Clarity Sl. Cloudy (Clear); Urine Urobilinogen Normal (Normal)
[2024-09-30 18:03] LABS: Red Blood Cells-Urine 0-5 SEEN /hpf (0-5); Squamous Epithelial Cells - UA 0-5 SEEN /hpf (5-10); White Blood Cells 0-5 SEEN /hpf (0-5)
[2024-09-30 18:04] LABS: Bacteria 1+ /hpf (None Seen)
[2024-09-30 19:03] LABS: ALB/GLOB Ratio 1.4 RATIO (0.9-2.4); AST(SGOT) 16 U/L (<=31); Alanine Aminotransfer ALT/SGPT 21 U/L (<=34); Albumin, Serum 4.2 g/dL (3.5-5.0); Alkaline Phosphatase 58 U/L (35-104); Anion Gap 13 (5-15); BUN 11 mg/dL (4-19); BUN/Creat Ratio 12.2 RATIO (10-20); Calcium,Total 9.2 mg/dL (7.6-11.0); Carbon Dioxide 23.8 mmol/L (21.0-32.0); Chloride 100 mmol/L (98-108); Creatinine, Serum 0.93 mg/dL (0.70-1.20); EST Glomerular Filtration Rate 85 (>60); Glucose 71 mg/dL (70-99); Potassium 3.2 mmol/L (3.3-5.1); Protein, Total 7.2 g/dL (5.9-8.4); Sodium Level 137 mmol/L (133-145); Total Bilirubin 0.36 mg/dL (0.00-1.30)
== END | disposition home or self-care (01) ==
LOC: MFPLAB 13:37
PROVIDERS: PCP Family Medicine
DX: R50.9 Fever, unspecified (principal); R10.9 Unspecified abdominal pain; R31.9 Hematuria, unspecified
CPT/HCPCS: 36415; 80053; 81001; 85025; 87077; 87086; 87088; 87186

== ENCOUNTER → 2024-09-30 | Outpatient (CLI) | payer BC, SELFPAY ==
--- NOTE | 2024-09-30 16:27 | US_ITS ---
PROCEDURE: TRANSVAGINAL W/PREG US 09/30/2024 REASON FOR EXAM: 29-year-old female, spontaneous in August. Patient now with vaginal bleeding. History of . TECHNIQUE: Transabdominal ultrasound imaging was obtained as well as color Doppler interrogation. COMPARISON: Pelvic ultrasound 09/07/2024. FINDINGS: Measurements: Uterus: 9.2 x 6.7 x 5.4 cm with a volume of 173 mL Endometrial Thickness: 1.7 cm Right Ovary: 4.3 x 2.6 x 2.6 cm with a volume of 15.0 mL. Left Ovary: 2.8 x 2.4 x 1.6 cm with a volume of 5.5 mL. Uterus: Normal size, myometrial echotexture, and contour. The cervical os is closed. Endometrium: Homogeneously thickened. No hypervascularity. Right ovary: Small right corpus luteum. Left ovary: Unremarkable. Other: No large pelvic mass identified. No free pelvic fluid. US/Transvaginal w/Preg US IMPRESSION: Mild endometrial thickening without discrete mass or hypervascularity. Reading Location: [id number]
== END | disposition home or self-care (01) ==
PROVIDERS: PCP Family Medicine; Referring Provider Nurse Practitioner Family; Visit Provider Nurse Practitioner Family
DX: O03.9 Complete or unspecified spontaneous abortion without complication (principal)
CPT/HCPCS: 76817

== ENCOUNTER 2024-10-01 06:31 | Emergency (ER) | payer BC, SELFPAY ==
[2024-10-01 06:32] VITALS: BP 155/74; PULSE 99; RESP 18; TEMP 38.7; O2SAT 98; BMI 45.4
--- NOTE | 2024-10-01 06:56 | EDS_ITS ---
HPI <Dr. Khadar Abrams DO - Last Filed: 10/01/24 07:07> History of Present Illness Chief Complaint: Flank Pain Informant: patient Onset/Context/Timing Onset: Days (2) Context: Gradual Onset Timing: Continuous Quality: Cramping, aching, stabbing Location: Left lower abdomen and left flank Worsened by: Movement Relieved by: Nothing Narrative Narrative: Patient presents with flank pain that has been getting worse over the past 2 days. Patient states it started on her right side but is now more on the left side. Patient describes it as cramping, aching, and stabbing. Patient states it is worse with any movement. The patient admits to some nausea and mild vomiting. Patient denies any hematemesis or coffee-ground emesis. Patient denies any diarrhea, melena, or hematochezia. Patient denies any urinary complaints. Patient also admits to a headache. [facility] <Dr. Khadar Abrams DO - Last Filed: 10/01/24 07:07> [facility] Medical History Ovarian cyst Active labor at term Infertility Thyroid disorder Superficial varicosities Macrosomia Obesity affecting Supervision of normal first Anxiety Home Medications ?Medication ?Instructions ?Recorded ?Last Taken ?Type levothyroxine 100 mcg tablet 100 mcg PO DAILY #30 tabs 12/27/23 Unknown Rx (Synthroid) ifiokzcj-fvs-[id number]-FA 1 mg 1 tab PO DAILY Unknown History tablet hydrocodone-acetaminophen 5-325mg 1 tab PO Q6H PRN PRN Pain 3 days 09/24/24 Unknown Rx 5mg-325mg #10 TABLETS ondansetron 4 mg disintegrating 4 mg PO Q8H PRN PRN Na usea #10 tabs 10/01/24 Unknown Rx tablet sulfamethoxazole 800 1 tab PO Q12H 14 days #28 ta bs 10/01/24 Unknown Rx mg-trimethoprim 160 mg tablet (Bactrim DS) Allergy/AdvReac Type Severity Reaction Status Date / Time tetracycline Allergy Mild Hives Verified 10/01/24 06:35 Family History Father Diabetes CAD (coronary artery disease) Hypertension Surgical History Delivery by section Social History adopted: No household members: spouse 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 Khadar Abrams DO - Last Filed: 10/01/24 07:07> ROS ED Constitutional Constitutional ED: Reports fever(s); Denies chills Eyes Eyes: Denies blurry vision or change in vision ENT ENT ED: Reports rhinorrhea; Denies sore throat Cardiovascular Cardiovascular: Denies chest pain or palpitations Respiratory/Chest Respiratory/Chest: Denies cough or dyspnea Gastrointestinal Gastrointestinal: Reports nausea and vomiting Genitourinary Genitourinary ED: Denies dysuria or hematuria Musculoskeletal Musculoskeletal: Reports back pain and neck pain Integumentary Denies abscess or rash Neurologic Neurologic: Reports headache(s); Denies weakness Allergic/Immunologic Allergic/Immunologic ED: Denies mouth swelling or urticaria EXAM <Dr. Khadar Abrams, - Last Filed: 10/01/24 07:07> Physical Exam Const Vital Signs: 10/01/24 06:32 10/01/24 10:05 10/01/24 10:27 Temperature 101.7 F H 99.0 F 99.0 F Temperature Source Oral Oral Pulse Rate 99 89 81 Respiratory Rate 18 16 16 Blood Pressure 155/74 H 153/116 H 146/99 H Blood Pressure Mean 101 128 114 Pulse Ox 98 99 98 Oxygen Delivery Method Room Air Room Air Positive well nourished and well developed General Appearance ED: well developed and NAD HEENT Reports moist mucous membranes Neck supple and no JVD Resp normal respiratory effort and clear to auscultation bilaterally Cardio regular rate and regular rhythm GI non-distended Palpation: soft and tender LLQ and LUQ; Negative for guarding or rebound tenderness present Extremity normal to inspection Neuro oriented x3, CN's II-XII intact bilaterally and no sensory deficits noted Sensorium / Orientation: alert Motor Exam: strength 5/5 throughout Psych mental status grossly normal <Dr. Jak Lagos, DO - Last Filed: 10/01/24 10:47> Physical Exam Const Vital Signs: 10/01/24 06:32 10/01/24 10:05 10/01/24 10:27 Temperature 101.7 F H 99.0 F 99.0 F Temperature Source Oral Oral Pulse Rate 99 89 81 Respiratory Rate 18 16 16 Blood Pressure 155/74 H 153/116 H 146/99 H Blood Pressure Mean 101 128 114 Pulse Ox 98 99 98 Oxygen Delivery Method Room Air Room Air MDM <Dr. Khadar Abrams, DO - Last Filed: 10/01/24 07:07> MDM MDM Narrative Medical decision making narrative: Differential diagnosis includes diverticulitis, ureteral calculus, pyelonephritis, colitis, ovarian cyst, and ectopic . CBC will be obtained to assess for leukocytosis and anemia. Basic metabolic profile will be obtained to assess for electrolyte abnormality and renal function. Serum hCG will be obtained to assess for . Urinalysis will be obtained to assess for urinary tract infection and hematuria. CT scan of the abdomen and pelvis will be obtained to assess for diverticulitis, ureteral calculus, and pyelonep hritis. Lab Data Labs: Laboratory Results - last 24 hr 10/01/24 06:50 WBC 14.4 H RBC 4.78 Hgb 13.7 Hct 40.0 MCV 83.7 MCH 28.7 MCHC 34.3 RDW Std Deviation 40.8 RDW Coeff of Antonio 13.2 Plt Count 217 MPV 9.6 Immature Gran % (Auto) 0.500 Neut % (Auto) 75.9 H Lymph % (Auto) 11.3 L [place] % (Auto) 12.0 H Eos % (Auto) 0.1 Baso % (Auto) 0.2 Absolute Neuts (auto) 10.9 H Absolute Lymphs (auto) 1.62 Nucleated RBC % 0 Platelet Estimate ADEQUATE Sodium 137 Potassium 3.5 Chloride 103 Carbon Dioxide 23.0 Anion Gap 11 BUN 10 Creatinine 0.81 Estim Creat Clear Calc 134.29 Est GFR (MDRD) Non-Af 101 BUN/Creatinine Ratio 12.6 Glucose 133 H Calcium 8.6 Serum , Qual NEGATIVE Urine Color Yellow Urine Clarity Sl. Cloudy Urine pH 6.0 Ur Specific [place] 1.015 Urine Protein 100 H Urine Glucose (UA) Normal Urine Ketones Negative Urine Occult Blood 250 H Urine Nitrite Negative Urine Bilirubin Negative Urine Urobilinogen 1 H Ur Leukocyte Esterase 25 H Urine RBC 0-5 SEEN Urine WBC 10-25 SEEN Ur Squamous Epith Cells 5-10 SEEN Urine Bacteria 3+ Urine Mucus 0 SEEN Radiography Diagnostic Testing: Clinical Impression(s) from Imaging Studies Abdomen/Pelvis CT 10/01/24 07:07 IMPRESSION: Findings are most concerning/consistent with left greater than right pyelonephritis as above, clinically correlate. 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 Bilateral asymmetric left more than right sclerotic change adjacent to the SI joints for example axial 100 again noted suggesting sacroiliitis. Reading Location: [facility] Treatment and Re-Evaluation :: Patient was given IV fluids, morphine, and Zofran. Patient was given dose of Tylenol for her fever. Care of the patient will be turned over to the oncoming physician pending results. <Dr. Jak Lagos, DO - Last Filed: 10/01/24 10:47> [facility] MDM Narrative Medical decision making narrative: Differential diagnosis includes diverticulitis, ureteral calculus, pyelonephritis, colitis, ovarian cyst, and ectopic . CBC will be obtained to assess for leukocytosis and anemia. Basic metabolic profile will be obtained to assess for electrolyte abnormality and renal function. Serum hCG will be obtained to assess for . Urinalysis will be obtained to assess for urinary tract infection and hematuria. CT scan of the abdomen and pelvis will be obtained to assess for diverticulitis, ureteral calculus, and pyelonephritis. Dr. Lagos: Patient was signed out to me by day provider. We were awaiting workup. Patient received NS bolus, Tylenol, Zofran, morphine. CBC with leukocytosis of 14.4. No anemia. BMP relatively unremarkable. Serum negative. UA is positive for UTI. Urine culture sent. Rocephin ordered. CT abdomen pelvis shows findings most concerning/consistent with left greater than right pyelonephritis. Patient has bilateral L5 spondylolysis without spondylolisthesis. Bilateral asymmetrical left more than right sclerotic change adjacent to the SI joints suggesting sacroiliitis. On reexamination, patient was able to tolerate p.o. intake. Her pain is improved. Her fever has resolved. Patient was updated of all of her findings. Given that she has no ALICIA and able to tolerate p.o. intake, I do think patient would be stable to discharge home. I had discussion with patient as well as on discharge home on p.o. antibiotics and Zofran versus admission to the hospital. After discussion patient elected to discharge home. I did explain to her that if symptoms worsen or change she is to return back to the ED. She confirmed understanding the plan. Zofran and Bactrim ordered. Tylenol and Motrin ordered. Follow-up with PCP and urology. She confirmed understand the plan. Impression: 1. Pyelonephritis 2. Sacroiliitis Lab Data Labs: Laboratory Results - last 24 hr 10/01/24 06:50 WBC 14.4 H RBC 4.78 Hgb 13.7 Hct 40.0 MCV 83.7 MCH 28.7 MCHC 34.3 RDW Std Deviation 40.8 RDW Coeff of Antonio 13.2 Plt Count 217 MPV 9.6 Immature Gran % (Auto) 0.500 Neut % (Auto) 75.9 H Lymph % (Auto) 11.3 L [place] % (Auto) 12.0 H Eos % (Auto) 0.1 Baso % (Auto) 0.2 Absolute Neuts (auto) 10.9 H Absolute Lymphs (auto) 1.62 Nucleated RBC % 0 Platelet Estimate ADEQUATE Sodium 137 Potassium 3.5 Chloride 103 Carbon Dioxide 23.0 Anion Gap 11 BUN 10 Creatinine 0.81 Estim Creat Clear Calc 134.29 Est GFR (MDRD) Non-Af 101 BUN/Creatinine Ratio 12.6 Glucose 133 H Calcium 8.6 Serum , Qual NEGATIVE Urine Color Yellow Urine Clarity Sl. Cloudy Urine pH 6.0 Ur Specific [place] 1.015 Urine Protein 100 H Urine Glucose (UA) Normal Urine Ketones Negative Urine Occult Blood 250 H Urine Nitrite Negative Urine Bilirubin Negative Urine Urobilinogen 1 H Ur Leukocyte Esterase 25 H Urine RBC 0-5 SEEN Urine WBC 10-25 SEEN Ur Squamous Epith Cells 5-10 SEEN Urine Bacteria 3+ Urine Mucus 0 SEEN Radiography Diagnostic Testing: Clinical Impression(s) from Imaging Studies Abdomen/Pelvis CT 10/01/24 07:07 IMPRESSION: Findings are most concerning/consistent with left greater than right pyelonephritis as above, clinically correlate. 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 Bilateral asymmetric left more than right sclerotic change adjacent to the SI joints for example axial 100 again noted suggesting sacroiliitis. Reading Location: [facility] Discharge Plan Triage Chief Complaint: Flank Pain ED Provider: Khadar Abrams Dx/Rx/DC Orders Clinical Impression: Pyelonephritis Instructions: ED Pyelonephritis, Female (Adult) Prescriptions: New ondansetron 4 mg tablet,disintegrating 4 mg PO Q8H PRN PRN (Reason: Nausea) Qty: 10 0RF sulfamethoxazole-trimethoprim [Bactrim DS] 800-160 mg tablet 1 tab PO Q12H 14 Days Qty: 28 0RF No Action levothyroxine [Synthroid] 100 mcg tablet 100 mcg PO DAILY Qty: 30 12RF nidwgirn-[id number]-Pr-FA 1 mg tablet 1 tab PO DAILY hydrocodone-acetaminophen 5-325 mg tablet 1 tab PO Q6H PRN PRN (Reason: Pain) 3 Days Qty: 10 0RF Stand Alone Forms: ED Work / School Excuse Primary Care Provider: Stacey Santacruz Referrals: Stacey Santacruz MD [Primary Care Provider] - 3-5 Days Mehran Mathews MD [Med Staff - Active Staff] - 3-5 Days Activity Restrictions/Additional Instructions: Take all of your antibiotics. Zofran as needed for nausea. Tylenol as needed for pain. Follow-up with primary care physician and urology. Return back to the ED if symptoms change or worsen. Such as high fever, inability to eat, worsening abdominal pain, inability to urine. Drink plenty of fluids. Print Language: Wolof Disposition Disposition: Home, Self Care Discharge Date/Time: 10/01/24 10:40
--- NOTE | 2024-10-01 07:07 | CT_ITS ---
EXAM: CT abdomen and pelvis with IV contrast only CLINICAL HISTORY: Abdominal pain COMPARISON: CT abdomen and pelvis 09/24/2024 TECHNIQUE: CT of the abdomen and pelvis with contrast with coronal and sagittal reformatted images. 98 cc [id number] FINDINGS: The lung bases are clear. The liver, contracted gallbladder, adrenal glands, pancreas and spleen appear within limits. Patchy appearance of the left renal nephrogram with associated perinephric and peripelvic stranding, edema. Mild patchy appearance to the right renal nephrogram concerning for pyelonephritis, clinically correlate. No focal abscess identified. Small nonobstructing stone upper pole right kidney and focal cortical scarring again noted. The renal arteries and renal veins appear to contain contrast as expected. No hydronephrosis. No evidence of ureteral or bladder stone identified. Mostly collapsed bladder appears within limits. No bowel dilation or free air. Normal caliber appendix without secondary signs. Abdominal aorta appears within limits. Shotty appearing retroperitoneal nonenlarged by CT criteria lymph nodes. The uterus and ovaries appear within limits with small follicle noted on the right. No free fluid seen. 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 Bilateral asymmetric left more than right sclerotic change adjacent to the SI joints for example axial 100 again noted suggesting sacroiliitis. CT/Abdomen/Pelvis W IV Cont ONLY IMPRESSION: Findings are most concerning/consistent with left greater than right pyelonephr itis as above, clinically correlate. 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 Bilateral as ymmetric left more than right sclerotic change adjacent to the SI joints for example axial 100 again noted suggesting sacroili itis. Reading Location: [id number]
[2024-10-01] MEDS: 0.9% Normal Saline (1000mL) 1,000 ML 999 ML IV (07:13)
[2024-10-01] MEDS: Ondansetron 4 MG/2 ML Vial IV (07:13)
[2024-10-01] MEDS: Morphine 4 MG/ML Syringe IV (07:13)
[2024-10-01] MEDS: Acetaminophen 500 MG Tablet 1000 MG PO (07:14)
[2024-10-01 07:19] LABS: Mucous, Urine 0 SEEN /hpf (<or=2+)
[2024-10-01 07:27] LABS: Absolute Lymphocyte Count 1.62 X10^3/uL (0.83-4.51); Absolute Neutrophil Count 10.9 X10^3/uL (2.0-7.7); Basophil# 0.03 X10^3/uL; Basophil% 0.2 % (0-1); Eosinophil# 0.02 X10^3/uL; Eosinophils% 0.1 % (0-5); Hemoglobin 13.7 g/dL (12.0-15.0); Lymphocyte # 1.62 X10^3/ul (0.83-4.51); Lymphocyte % 11.3 % (19-41); Mean Corp Hgb Conc 34.3 g/dL (32-36); Mean Corpuscular Hgb 28.7 pg (27.0-32.0); Mean Corpuscular Volume 83.7 fL (81-99); Mean Platelet Vol. 9.6 fl (6.2-12.0); Monocyte# 1.73 X10^3/uL; NRBC Flagged by Analyzer 0 % (0-5); Neutrophil # 10.92 X10^3/uL (2.7-7.7); Neutrophil % 75.9 % (47-70); POSITIVE DIFFERENTIAL YES; Platelet Count 217 K/mm3 (150-450); RBC Distribution Width CV 13.2 % (11.6-14.6); RBC Distribution Width SD 40.8 fl (35.1-43.9); Red Blood Count 4.78 M/mm3 (4.2-5.4); White Blood Count 14.4 K/mm3 (4.4-11.0)
[2024-10-01 07:33] LABS: Differential Indicated SCAN CRITERIA MET
[2024-10-01 07:39] LABS: Color, Urine Yellow (Yellow); Glucose, Dipstick Normal (Normal); Ketone-Dipstick Negative (Negative); Leukocyte Esterase-Dipstick 25 /ul (Negative); Nitrite-Dipstick Negative (Negative); Occult Blood-Urine 250 /ul (Negative); Protein-Dipstick 100 mg/dl (Negative); Specific Gravity, Urine 1.015 (1.002-1.030); Urine Bilirubin Dipstick Negative (Negative); Urine Clarity Sl. Cloudy (Clear); Urine Urobilinogen 1 mg/dl (Normal)
[2024-10-01 07:42] LABS: Internal QC Validated? YES +Cl - CLEAR BKGD; Pregnancy, Serum, hCG Quali. NEGATIVE Negative
[2024-10-01 07:57] LABS: Bacteria 3+ /hpf (None Seen); Red Blood Cells-Urine 0-5 SEEN /hpf (0-5); Squamous Epithelial Cells - UA 5-10 SEEN /hpf (5-10); White Blood Cells 10-25 SEEN /hpf (0-5)
[2024-10-01 08:00] LABS: Anion Gap 11 (5-15); BUN 10 mg/dL (4-19); BUN/Creat Ratio 12.6 RATIO (10-20); Calcium,Total 8.6 mg/dL (7.6-11.0); Chloride 103 mmol/L (98-108); Creatinine, Serum 0.81 mg/dL (0.70-1.20); EST Glomerular Filtration Rate 101 (>60); Estimated Creatinine Clearance 134.29 ml/min (50-250); Glucose 133 mg/dL (70-99); Potassium 3.5 mmol/L (3.3-5.1); Sodium Level 137 mmol/L (133-145)
[2024-10-01 08:19] LABS: Platelet Estimate ADEQUATE (ADEQ)
[2024-10-01] MEDS: Ceftriaxone 1 GM/50 ML BAG IV (09:01)
[2024-10-01 10:05] VITALS: BP 153/116; PULSE 89; RESP 16; TEMP 37.2; O2SAT 99
[2024-10-01 10:27] VITALS: BP 146/99; PULSE 81; RESP 16; TEMP 37.2; O2SAT 98
== END 2024-10-01 10:40 | disposition home or self-care (01) ==
PROVIDERS: Emergency Provider Emergency Medicine; PCP Family Medicine; Visit Provider Emergency Medicine
DX: N12 Tubulo-interstitial nephritis, not specified as acute or chronic (principal); M46.1 Sacroiliitis, not elsewhere classified; M43.06 Spondylolysis, lumbar region; R51.9 Headache, unspecified; Z79.890 Hormone replacement therapy; Z79.899 Other long term (current) drug therapy
CPT/HCPCS: 74177; 80048; 81001; 84703; 85025; 87077; 87086; 87088; 87186; 96361; 96365; 96375; 99283; Q9967; A4216; J2405

== ENCOUNTER → 2024-12-04 | Outpatient (CLI) | payer BC, SELFPAY | END | disposition home or self-care (01) | PROVIDERS: PCP Family Medicine; Referring Provider Family Medicine; Visit Provider Family Medicine | DX: E03.9 Hypothyroidism, unspecified (principal) | CPT/HCPCS: 36415; 84443 ==

== ENCOUNTER → 2025-01-22 | Outpatient (CLI) | payer BC, SELFPAY ==
[2025-01-22 18:38] LABS: hCG Titer Quant., Serum 97 mIU/mL (<9 non-preg)
== END | disposition home or self-care (01) ==
LOC: MFPLAB 15:29
PROVIDERS: PCP Family Medicine; Referring Provider Family Medicine; Visit Provider Family Medicine
DX: N91.2 Amenorrhea, unspecified (principal)
CPT/HCPCS: 36415; 84702

== ENCOUNTER → 2025-01-28 | Outpatient (CLI) | payer BC, SELFPAY ==
[2025-01-28 18:23] LABS: hCG Titer Quant., Serum 1250 mIU/mL (<9 non-preg)
== END | disposition home or self-care (01) ==
LOC: MFPLAB 15:53
PROVIDERS: PCP Family Medicine; Referring Provider Family Medicine; Visit Provider Family Medicine
DX: R79.89 Other specified abnormal findings of blood chemistry (principal)
CPT/HCPCS: 36415; 84702

== ENCOUNTER → 2025-02-12 | Outpatient (CLI) | payer BC, SELFPAY ==
--- NOTE | 2025-02-12 15:15 | US_ITS ---
PROCEDURE: TRANSVAGINAL W/PREG US 02/12/2025 REASON FOR EXAM: EARLY DATING US TECHNIQUE: TRANSVAGINAL W/PREG US COMPARISON: None FINDINGS: Comments: LMP: Not known Number of Gestational Sacs: 2 Number of Fetuses: 2 Chorionicity and Amnionicity: Dichorionic Ovaries / Adnexa: Both maternal ovaries are visualized and unremarkable. Uterine Abnormalities: Maternal uterus is unremarkable. ----- FETUS A: Gestational Sac Shape: Normal Heart Rate: 116 beats per minute (average) Yolk Sac: Present and unremarkable. Placenta: Presently not well-visualized. Amniotic Fluid Volume: Subjectively normal for gestational age. DIMENSIONS (A): Parameter Measurement / EGA Frederic Rump Length: 3 mm/6 weeks and 1 day Gestational Sac: 1.4 cm/6 weeks and 2 days Yolk Sac: 4 mm/ ESTIMATED GESTATIONAL AGE (A): By Ultrasound: 6 weeks and 2 days ESTIMATED DATE OF DELIVERY (A): By Ultrasound: October 06, 2025 ----- FETUS B: Gestational Sac Shape: Normal Heart Rate: 121 beats per minute (average) Yolk Sac: Present and unremarkable. Placenta: Presently not well-visualized. Amniotic Fluid Volume: Subjectively normal for gestational age. DIMENSIONS (B): Parameter Measurement / EGA Frederic Rump Length: 3 mm/6 weeks and 1 day Gestational Sac: 1.7 cm/6 weeks and 4 days Yolk Sac: 3 mm/6 weeks and 1 day ESTIMATED GESTATIONAL AGE (B): By Ultrasound: 6 weeks and 3 days ESTIMATED DATE OF DELIVERY (B): By Ultrasound: October 05, 2025 US/Transvaginal w/Preg US IMPRESSION: Twin gestation as described. Reading Location: [place] [id number]
== END | disposition home or self-care (01) ==
PROVIDERS: PCP Family Medicine; Referring Provider Advanced Practice Midwife; Visit Provider Advanced Practice Midwife
DX: O30.041 Twin pregnancy, dichorionic/diamniotic, first trimester (principal); Z3A.01 Less than 8 weeks gestation of pregnancy
CPT/HCPCS: 76817

== ENCOUNTER → 2025-02-26 | Outpatient (CLI) | payer BC, SELFPAY | END | disposition home or self-care (01) | LOC: LABSPEC 15:47 | PROVIDERS: PCP Family Medicine; Referring Provider Obstetrics & Gynecology; Visit Provider Obstetrics & Gynecology | DX: O09.90 Supervision of high risk pregnancy, unspecified, unspecified trimester (principal); Z3A.00 Weeks of gestation of pregnancy not specified | CPT/HCPCS: 87086; 87088 ==

== ENCOUNTER → 2025-03-11 | Outpatient (CLI) | payer BC, SELFPAY ==
[2025-03-11 15:53] LABS: Hematocrit 39.3 % (37-47); Hemoglobin 13.9 g/dL (12.0-15.0); Immature Granulocytes Count 0.050 X10^3/uL (0.0-0.0); Mean Corp Hgb Conc 35.4 g/dL (32-36); Mean Corpuscular Volume 84.7 fL (81-99); Mean Platelet Vol. 10.0 fl (6.2-12.0); NRBC Flagged by Analyzer 0 % (0-5); Platelet Count 227 K/mm3 (150-450); RBC Distribution Width CV 13.2 % (11.6-14.6); RBC Distribution Width SD 40.2 fl (35.1-43.9); Red Blood Count 4.64 M/mm3 (4.2-5.4); White Blood Count 11.1 K/mm3 (4.4-11.0)
[2025-03-11 17:05] LABS: HIV Nonreactive (Nonreactive); Hepatitis B Surface Antigen Nonreactive (Nonreactive); Hepatitis C Antibody Nonreactive (Nonreactive); Syphilis Antibodies Nonreactive (Nonreactive)
== END | disposition home or self-care (01) ==
PROVIDERS: Obstetrics & Gynecology; PCP Family Medicine; Visit Provider Obstetrics & Gynecology
DX: O09.90 Supervision of high risk pregnancy, unspecified, unspecified trimester (principal); Z86.39 Personal history of other endocrine, nutritional and metabolic disease; O99.210 Obesity complicating pregnancy, unspecified trimester; Z3A.00 Weeks of gestation of pregnancy not specified
CPT/HCPCS: 36415; 83036; 84439; 84443; 85025; 86703; 86762; 86780; 86803; 86850; 86900; 86901; 87340

== ENCOUNTER → 2025-05-14 | Outpatient (CLI) | payer BC, SELFPAY | END | disposition home or self-care (01) | LOC: LABSPEC 16:08 | PROVIDERS: PCP Family Medicine; Referring Provider Surgery; Visit Provider Surgery | DX: K61.0 Anal abscess (principal) | CPT/HCPCS: 87070; 87077; 87186; 87205 ==

== ENCOUNTER → 2025-05-26 | Outpatient (CLI) | payer BC, SELFPAY | END | disposition home or self-care (01) | LOC: LABSPEC 16:28 | PROVIDERS: PCP Family Medicine; Visit Provider Advanced Practice Midwife | DX: O09.90 Supervision of high risk pregnancy, unspecified, unspecified trimester (principal); Z3A.00 Weeks of gestation of pregnancy not specified | CPT/HCPCS: 87491; 87591 ==

== ENCOUNTER 2025-06-01 07:56 | Outpatient (CLI) | payer BC, SELFPAY ==
[2025-06-01 08:02] VITALS: BP 132/51; PULSE 84; RESP 16; O2SAT 100
[2025-06-01] MEDS: 0.9% NaCl Peripheral Flush Adult IV (08:12)
[2025-06-01 09:30] VITALS: BP 114/46; PULSE 78; RESP 18; TEMP 36.4; O2SAT 99
== END 2025-06-01 23:59 | disposition home or self-care (01) ==
LOC: MEDOUTP 07:57
PROVIDERS: PCP Family Medicine; Referring Provider Nurse Practitioner Women's Health; Visit Provider Nurse Practitioner Women's Health
DX: E86.0 Dehydration (principal)
CPT/HCPCS: 96361; 96374; A4216; J2405

== ENCOUNTER 2025-06-02 19:32 | Emergency (ER) | payer BC, SELFPAY ==
[2025-06-02 19:33] VITALS: BP 160/85; PULSE 98; RESP 17; TEMP 36.5; O2SAT 100; BMI 39.4
[2025-06-02 19:48] VITALS: O2SAT 100
--- NOTE | 2025-06-02 19:48 | EKG12_ITS ---
Test Reason : Blood Pressure : */* mmHG Vent. Rate : 90 BPM Atrial Rate : 90 BPM P-R Int : 166 ms QRS Dur : 82 ms QT Int : 380 ms P-R-T Axes : 19 53 -8 degrees QTcB Int : 464 ms Normal sinus rhythm T wave abnormality, consider inferior ischemia Abnormal ECG Confirmed by NARCISA YOUSSEF ([id number]), dictionary editor KAYLYNN OLEARY ([id number]) on 06/07/2025 6:29:37 AM Referred By: Confirmed By: NARCISA YOUSSEF
--- NOTE | 2025-06-02 20:05 | RAD_ITS ---
PROCEDURE: CHEST PA AND LATERAL 06/02/2025 REASON FOR EXAM: CHEST PAIN. SHIELD ABD PT IS TECHNIQUE: Procedure Code: RADCXR Modality: DX Procedure: CHEST PA AND LATERAL COMPARISON: 11/14/2019 FINDINGS: Lungs/Pleura: Clear. No pneumothorax or pleural effusion. Heart/Mediastinum: Within normal limits. Bones/Soft tissues: Unremarkable. RAD/Chest PA and Lateral IMPRESSION: No acute cardiopulmonary disease. Reading Location: [id number]
--- OUTSIDE RECORDS SUMMARY | 2025-06-02 20:09 | XMS RPT_ITS | CCD ---
Author Organization [facility] Care Team Providers Care Precinct Captain Name Role Phone Dr. Zaid Garcia Primary Care Provider [phone] Jamila BOAT DETAILER, BOAT DETAILER-C Destinee Attending Provider [phone] Dr. Zaid Garcia Referring Provider Dr. Prudence Law Attending Provider [phone] Care Physician, No Primary Primary Care Provider Unavailable Care Physician, No Primary Referring Provider Un available Dr. Ashley Mullen Attending Provider [phone] Jamila BOAT DETAILERRACHAEL-Staci Felipe Attending Provider [phone] Care Physician, No Primary Primary Care Provider Unavailable Dr. Prudence Law Attending Provider [phone] Dr. Ashley Mullen Referring Provider [phone] Dr. Ashley Mullen Other Provider Care Physician, No Primary Primary Care Provider Unavailable Care Physician, No Primary Referring Provider Un available Dr. Ashley Mullen Attending Provider Care Physician, No Primary Primary Care Provider Unavailable Care Physician, No Primary Referring Provider Un available Dr. Prudence Law Attending Provider [phone] DO Adriana Lorenzana Primary Care Provider Care Physician, No Primary Primary Care Provider Unavailable Care Physician, No Primary Referring Provider Un available Jamila BOAT DETAILER, RACHAEL-C Destinee Attending Provider [phone] Dr. Ashley Mullen Attending Provider [phone] Dr. Prudence Law Attending Provider Dr. Ashley Mullen Referring Provider Dr. Ashley Mullen Other Provider DO Adriana Lorenzana Primary Care Provider DO Adriana Lorenzana Referring Provider Dr. Prudence Law Admit Provider Dr. Prudence Law Referring Provider Dr. Prudence Law Other Provider FLORENEC Beltran Attending Provider Care Physician, No Primary Primary Care Provider Unavailable Care Physician, No Primary Referring Provider Un available Dr. Ashley Mullen Attending Provider [phone] Dr. Ashley Mullen Referring Provider [phone] Dr. Ashley Mullen Other Provider Dr. Prudence Law Attending Provider Jamila BOAT DETAILER, BOAT DETAILER-C Destinee Attending Provider Beto BOAT DETAILER, BOAT DETAILER-C Kayce Attending Provider Zaid Dumont MD Primary Care Provider Zaid Dumont MD Primary Care Provider Physicians, [facility] Primary Care Provide r Stacey Santacruz MD Primary Care Provider [facility] BOAT DETAILER-CJulio Cesar Attending Provider Dr. Ashley Mullen MD Attending Provider Dr. Ashley Mullen MD Referring Provider Dr. Khadar Abrams DO Attending Provider Dr. Khadar Abrams DO Emergency Provider Jason BOAT DETAILER-C, Jocelyn Attending Provider Jason BOAT DETAILER-C, Jocelyn Referring Provider Berna Keane CNM Attending Provider Lakhwinder HENRIQUEZ, Berna Referring Provider [phone] Dr. Prudence Law DO Attending Provider Dr. Prudence Law DO Referring Provider Ernst Garcia MD Emergency Provider Stacey Santacruz MD Referring Provider Ernst Garcia MD Attending Provider Dr. Khadar Abrams DO [facility], Julio Cesar Referring Provider Stacey Santacruz MD Primary Care Provider Dr. Khadar Abrams DO Attending Provider Dr. Khadar Abrams DO Emergency Provider [facility] BOAT DETAILER-C, Julio Cesar Attending Provider Stacey Santacruz MD Attending Provider TORO SAUL Attending Unavailable JONATHAN WHELAN Attending Unavailable Stacey Santacruz MD Primary Care Provider Jason BOAT DETAILER-C, Jocelyn Attending Provider Jason BOAT DETAILER-C, Jocelyn Referring Provider Dr. Khadar Abrams DO Attending Provider Dr. Khadar Abrams DO Emergency Provider Stacey Santacruz MD Referring Provider Stacey Santacruz MD Primary Care Provider Dr. Ashley Mullen MD Attending Provider Lakhwinder HENRIQUEZ, Berna Attending Provider [phone] Lakhwinder HENRIQUEZ, Berna Referring Provider [phone] Dr. Ashley Mullen MD Referring Provider Dr. Prudence Law DO Attending Provider Stacey Santacruz MD Primary Care Physician Stacey Santacruz MD Attending Physician Alanis SHEPHERD, Stacey Referring Provider [phone] Dr. Ashley Mullen MD Attending Physician Berna Keane CNM Attending Physician Dr. Prudence Law DO Attending Physician Dr. Damian Antunez MD Attending Physician PRUDENCE REYES Referring Unavailab le ALANIS, CHALON J Primary Care Unavailable STEPAN GRIFFITH Attending Unavailable Alanis SHEPHERD, Stacey Primary Care Physician [phone] Alanis SHEPHERD, Stacey Attending Physician Alanis SHEPHERD, Stacey Referring Provider Dr. Ashley Mullen MD Attending Physician Lakhwinder HENRIQUEZ, Berna Attending Physician [phone] Lakhwinder HENRIQUEZ, Berna Referring Provider [phone] Dr. Ashley Mullen MD Referring Provider [phone] Dr. Prudence Law DO Attending Physician Dr. Damian Antunez MD Attending Physician Liz Feliz PA-C Attending Physician Ashley Mullen Referring Unavailable Ashley Mullen Attending Unavailable Alanis, Chalon Primary Care Unavailable Ernst Garcia Attending Unavailable Alanis, Chalon Primary Care Unavailable Alanis, Chalon Referring Unavailable McMorrow BOAT DETAILER, Julio Cesar Attending Unavailable Alanis, Chalon Primary Care Unavailable Jason BOAT DETAILER, Jocelyn Attending Unavailable Jason BOAT DETAILER, Jocelyn Referring Unavailable Alanis, Chalon Primary Care Unavailable Alanis, Chalon Primary Care Unavailable Jason BOAT DETAILER, Jocelyn Attending Unavailable Jason BOAT DETAILER, Jocelyn Referring Unavailable Alanis, Chalon Primary Care Unavailable McMorrow BOAT DETAILER, Julio Cesar Attending Unavailable McMorrow BOAT DETAILER, Julio Cesar Referring Unavailable Berna Keane Referring Unavailable Berna Keane Attending Unavailable Alanis, Chalon Primary Care Unavailable Prudence Law Attending Unavailabl e Alanis, Chalon Primary Care Unavailable Khadar Abrams Attending Unavailable Alanis, Chalon Primary Care Unavailable Schwiger, Khadar Attending Unavailable Alanis, Chalon Primary Care Unavailable Alanis, Chalon Primary Care Unavailable Alanis, Chalon Referring Unavailable Marcanthony, Ashley Attending Unavailable Alanis, Chalon Referring Unavailable Marcanthony, Ashley Attending Unavailable Alanis, Chalon Primary Care Unavailable Damian Antunez Attending Unavailable Alanis, Chalon Referring Unavailable Alanis, Chalon Primary Care Unavailable Alanis, Chalon Referring Unavailable Alanis, Chalon Primary Care Unavailable Vande Velde, Prudence Attending Unavailabl e Alanis, Chalon Referring Unavailable Alanis, Chalon Primary Care Unavailable Vande Velde, Prudence Attending Unavailabl e Schwiger, Khadar Attending Unavailable Schwiger, Khadar Referring Unavailable Alanis, Chalon Primary Care Unavailable Alanis, Chalon Primary Care Unavailable Alanis, Chalon Attending Unavailable Alanis, Chalon Referring Unavailable Alanis, Chalon Attending Unavailable Alanis, Chalon Referring Unavailable Alanis, Chalon Primary Care Unavailable Alanis, Chalon Attending Unavailable Alanis, Chalon Referring Unavailable Alanis, Chalon Primary Care Unavailable Jn Fink Attending Unavailable Jn Fink Referring Unavailable Alanis, Chalon Primary Care Unavailable Jn Fink Attending Unavailable Alanis, Chalon Referring Unavailable Alanis, Chalon Primary Care Unavailable Feliz Liz SMITH Attending Unavailable Alanis, Chalon Referring Unavailable Alanis, Chalon Primary Care Unavailable Feliz Liz SMITH Attending Unavailable Alanis, Chalon Referring Unavailable Alanis, Chalon Primary Care Unavailable Alanis, Chalon Referring Unavailable Marcanthony, Ashley Attending Unavailable Alanis, Chalon Primary Care Unavailable Alanis, Chalon Referring Unavailable Alanis, Chalon Primary Care Unavailable Antonioanthony, Ashley Attending Unavailable Alanis, Chalon Primary Care Unavailable Berna Keane Referring Unavailable Berna Keane Attending Unavailable Vande Velde, Prudence Referring Unavailabl e Alanis, Chalon Primary Care Unavailable Vande Velde, Prudence Attending Unavailabl e Vande Velde, Prudence Referring Unavailabl e Alanis, Chalon Primary Care Unavailable Vande Velde, Prudence Attending Unavailabl e Alanis, Chalon Primary Care Unavailable MarcanthonyAshley Attending Unavailable Marcanthony, Ashley Referring Unavailable Dr. Jn Fink MD Attending Physician Dr. Jn Fink MD Referring Provider [phone] Allergies Allergy Classification Reported Allergen(s) Allergy Type Date of Onset Reaction(s) Facility (9 sources) tetrahydrozoline; Translations: [TETRAHYDROZOLINE ] Drug Allergy 03-17-2024 Rash [facility] (16 sources) Tetracycline Drug Allergy 09-24-2024 [facility] Comment on above: PT THINKS THIS IS TH E MEDICATION SHE GOT FOR PINK EYE (1 source) Tetracycline Drug Allergy 05-14-2025 [facility] Medications Current Medications Medication Drug Class(es) Dates Sig (Normalized) Sig (Original) amoxicillin 875 mg oral tablet (3 sources) Penicillin-class Antibacterial Start: 03-17-2024 End: 03-24-2024 take 1 tablet by mouth twice daily amoxicillin (AMOXIL) 875 mg tablet Take 1 tablet by mouth two times a day for 7 days. 14 tablet 03/17/2024 03/24/2024 Active Start: 11-23-2023 End: 11-30-2023 take 1 tablet by mouth twice daily amoxicillin (AMOXIL) 875 mg tablet Take 1 tablet by mouth two times a day for 7 days. 14 tablet 0 11/23/2023 11/30/2023 Active Start: 08-18-2023 End: 08-25-2023 take 1 tablet by mouth twice daily amoxicillin (AMOXIL) 875 mg tablet Indications: Other acute nonsuppurative otitis media of both ears, recurrence not specified Take 1 tablet by mouth two times a day for 7 days. 14 tablet 0 08/18/2023 08/25/2023 Active Comment on above: Take 1 tablet by rufino th two times a day for 7 days. amoxicillin 875 mg / clavulanate 125 mg oral tablet (11 sources) Penicillin-class Antibacterial Start: 04-01-2025 End: 05-10-2025 Amoxicillin-Pot Clavulanate 875-125 mg tablet Discontinued 1 {tbl} PO TWICE A DAY 8 4 0 May 06, 2025 1:20pm May 08, 2025 11:00pm May 10, 2025 12:09am Start: 08-21-2024 End: 08-28-2024 take 1 tablet by mouth twice daily amoxicillin-clavulanate potassium (AUGMENTIN) 875-125 mg per tablet Indications: Bacterial sinusitis , Other acute nonsuppurative otitis media of both ears, recurrence not specified Take 1 tablet by mouth two times a day for 7 days. 14 tablet 08/21/2024 08/28/2024 Active Start: 10-28-2022 End: 11-04-2022 take 1 tablet by mouth twice daily amoxicillin-clavulanic acid (AUGMENTIN) 875-125 mg per tablet Take 1 tablet by mouth twice daily for 7 days. 14 tablet 0 10/28/2022 11/04/2022 Active Comment on above: Take 1 tablet by [facility] twice daily for 7 days. azithromycin 250 mg oral tablet (8 sources) Macrolide Antimicrobial Start: 05-02-2024 End: 05-07-2024 azithromycin (ZITHROMAX Z-IRVIN) 250 mg tablet Take 2 tablets day one, then, 1 tablet daily until gone. 6 tablet 05/02/2024 05/07/2024 Active Start: 11-16-2022 End: 05-02-2024 azithromycin (ZITHROMAX) 250 mg tablet 11/16/2022 05/02/2024 Discontinued (Other) Start: 11-16-2022 azithromycin ( ZITHROMAX) 250 mg tablet TAKE 2 TABLETS BY MOUTH ON DAY 1, AND THEN TAKE 1 TABLET BY MOUTH ONCE A DAY ON DAY 2 THROUGH DAY 5 11/16/2022 Active Comment on above: TAKE 2 TABLETS BY [facility] ON DAY 1, AND THEN TAKE 1 TABLET BY MOUTH ONCE A DAY ON DAY 2 THROUGH DAY 5 fluconazole 100 mg oral tablet (20 sources) Azole Antifungal Start: take 1 tablet by mouth once daily Fluconazole (Diflucan) 100 mg tablet Active 100 MG PO DAILY May 16, 2022 12:00am Start: 12-30-2021 End: 01-01-2022 take 1 tablet by mouth three times daily Fluconazole (Diflucan) 150 mg tablet Discontinued 150 mg PO DAILY 2 2 0 December 29, 2021 11:00pm December 30, 2021 11:00pm December 31, 2021 11:03pm Infection due to Streptococcus agalactiae Streptococcal infection, unspecified site take 3 days apart 24 hr loratadine 10 mg / pseudoephedrine sulfate 240 mg extended release oral tablet (3 sources) alpha-Adrenergic Agonist Start: 03-22-2022 take 1 tablet by mouth once daily, then take 1 tablet by mouth every twenty-four hours Loratadine-Pseudoephedrine (Claritin-D 24 Hour) 10-240 mg Tablet Extended Release 24 Hr Active 1 TABLET PO DAILY March 22, 2022 12:00am Mv-Mins 37-Ysxv-Zuxnn No.1-Dha (Pnv-[place]) 28-1-300 mg capsule (7 sources) Start: 02-18-2025 Start: 02-18-2025 Mv-Mins 71-Iro n-Folic No.1-Dha (Pnv-[place]) 28-1-300 mg capsule Active NMA PO February 17, 2025 11:00pm Complies with drug therapy Start: 02-18-2025 Mv-Mins 71-Iro n-Folic No.1-Dha (Pnv-[place]) 28-1-300 mg capsule Active NMA PO February 18, 2025 12:00am Complies with drug therapy Start: 02-18-2025 Mv-Mins 71-Iro n-Folic No.1-Dha (Pnv-[place]) 28-1-300 mg capsule Active NMA PO February 18, 2025 12:00am predniSONE 20 mg oral tablet (1 source) Start: 10-28-2022 End: 11-02-2022 take 2 tablets by mouth once daily predniSONE (DELTASONE) 20 mg tablet Take 2 tablets by mouth once daily for 5 days. 10 tablet 0 10/28/2022 11/02/2022 Active Comment on above: Take 2 tablets by mo uth once daily for 5 days. Prenat.Vits,Boubacar,Mi l-Tlgr-Rnbtl (18 sources) Start: 10-24-2021 take 1 tablet by mouth once daily Prenat.Vits,Boubacar,Min -Iron-Folic Active 1 TABLET PO DAILY October 24, 2021 4:27pm Start: 10-24-2021 take 1 tablet by rufino th once daily Prenat.Vits,Boubacar,Nef-Rgmp-Zotqj Active 1 TABLET PO DAILY October 23, 2021 11:00pm Start: 10-24-2021 take 1 tablet by rufino th once daily Prenat.Vits,Boubacar,Imq-Xdhv-Gnexq Active 1 TABLET PO DAILY October 24, 2021 12:00am vits 7/iron/folic/d meredith ( VIT 2-KYAX-DNBME-DHA ORAL) (1 source) vits 7/ iron/folic/dha ( VIT 9-LNKZ-MOTHW-DHA ORAL) Take by mouth. Active Completed/Discontinued Medications Medication Drug Class(es) Dates Sig (Normalized) Sig (Original) acetaminophen 325 mg / HYDROcodone bitartrate 5 mg oral tablet (16 sources) Opioid Agonist Start: 09-24-2024 End: 02-02-2025 Hydrocodone-Acetami nophen 5-325 mg tablet Discontinued 1 {tbl} PO EVERY 6 HOURS NEEDED as needed for Pain 10 3 0 September 24, 2024 February 02, 2025 1:41pm Acute right flank pain Unspecified abdominal pain acetaminophen 325 mg / oxyCODONE hydrochloride 5 mg oral tablet (20 sources) Opioid Agonist Start: 09-03-2024 End: 09-07-2024 Oxycodone-Acetamino phen (Percocet) 5-325 mg tablet Discontinued 1 {tbl} PO EVERY 6 HOURS as needed for pain 12 3 0 September 03, 2024 September 07, 2024 1:53pm Spontaneous Complete or unspecified spontaneous without complication Start: 05-24-2022 End: 07-11-2022 Oxycodone-Acetaminophen (Per cocet) 5-325 mg tablet Discontinued 1 {tbl} PO Q4H as needed for pain 20 7 0 May 24, 2022 July 11, 2022 3:07pm Delivery by section Status post delivery History of uterine scar from previous surgery benzonatate 100 mg oral capsule (5 sources) Non-narcotic Antitussive Start: 05-02-2024 End: 01-13-2025 take 2 capsules by mouth every eight hours as needed benzonatate (TESSALON PERLES) 100 mg capsule Take 2 capsules by mouth three times a day as needed for cough. 21 capsule 05/02/2024 01/13/2025 Discontinued betamethasone 0.5 mg/ml / clotrimazole 10 mg/ml topical cream (20 sources) Azole Antifungal, Corticosteroid Start: 01-31-2022 End: 03-16-2022 Clotrimazole-Beta methasone 1-0.05 % cream Discontinued 1 NMA TOPICAL TWICE A DAY 45 14 1 January 30, 2022 11:00pm March 16, 2022 1:47pm Start: 01-31-2022 End: 03-16-2022 Clotrimazole-Betamethasone D iscontinued 1 APPLIC TOPICAL TWICE A DAY 45 January 31, 2022 12:00am March 16, 2022 2:47pm escitalopram 10 mg oral tablet (20 sources) Serotonin Reuptake Inhibitor Start: 11-08-2020 End: 10-24-2021 take 1 tablet by mouth once daily Escitalopram Oxalate 10 mg Tablet Discontinued 10 mg PO DAILY November 07, 2020 11:00pm October 24, 2021 3:27pm hydrOXYzine pamoate 50 mg oral capsule (20 sources) Antihistamine Start: 01-05-2022 End: 03-16-2022 take 1 capsule by mouth at bedtime Hydroxyzine Pamoate (Vistaril) 50 mg capsule Discontinued 50 mg PO AT BEDTIME 30 January 04, 2022 11:00pm March 16, 2022 1:47pm levothyroxine sodium 0.1 mg oral tablet (20 sources) l-Thyroxine Start: 12-27-2023 End: 02-02-2025 take 1 tablet by mouth once daily Levothyroxine (Synthroid) 100 mcg tablet Discontinued 100 ug PO DAILY 30 December 26, 2023 11:00pm February 02, 2025 1:41pm Start: 10-24-2021 End: 10-22-2023 take 2 capsules by mouth once daily Levothyroxine 50 mcg capsule Discontinued 100 ug PO DAILY October 23, 2021 11:00pm October 22, 2023 2:23pm Start: 10-24-2021 take 100 ug by mouth once maki y Levothyroxine Active 100 MCG PO DAILY October 24, 2021 12:00am Start: 10-24-2021 take 50 ug by mouth once daily Levothyroxine Active 50 MCG PO DAILY October 24, 2021 12:00am megestrol acetate 20 mg oral tablet (19 sources) Progestin Start: 10-20-2023 End: 11-14-2023 take 1 tablet by mouth once daily Megestrol 20 mg tablet Discontinued 10 mg PO DAILY October 19, 2023 11:00pm November 14, 2023 2:21pm Start: 10-20-2023 take 10 mg by mouth once daily Megestrol Active 10 MG PO DAILY October 20, 2023 12:00am naproxen 250 mg oral tablet (20 sources) Nonsteroidal Anti-inflammatory Drug Start: 05-24-2022 End: 07-11-2022 take 2 tablets by mouth every eight hours as needed for pain Naproxen 250 mg tablet Discontinued 500 mg PO EVERY 8 HOURS NEEDED as needed for Mild Pain 30 May 24, 2022 12:00am July 11, 2022 3:07pm Start: 05-24-2022 End: 07-11-2022 take 500 mg by mouth every eight hours as needed Naproxen Discontinued 500 MG PO EVERY 8 HOURS NEEDED May 24, 2022 1:00am July 11, 2022 4:07pm nitrofurantoin, macrocrystals 25 mg / nitrofurantoin, monohydrate 75 mg oral capsule (20 sources) Nitrofuran Antibacterial Start: 11-08-2021 End: 11-15-2021 take 1 capsule by mouth twice daily at mealtime Nitrofurantoin Monohyd/M-Cryst (Macrobid) 100 mg capsule Discontinued 100 mg PO TWICE A DAY 14 7 November 07, 2021 11:00pm November 13, 2021 11:00pm November 14, 2021 11:04pm must administer with a meal/food norethindrone acetate 5 mg oral tablet (20 sources) Start: 11-14-2023 End: 01-13-2025 Norethindrone Acetate 5 mg tablet Discontinued 5 mg PO .COMPLEX 45 0 November 13, 2023 11:00pm December 12, 2023 8:37am 5 mg orally TID until bleeding stops for 24hrs then BID to finish RX; Start: 03-01-2023 End: 10-20-2023 take 1 tablet by mouth twice daily, then take 1 tablet by mouth once daily Norethindrone Acetate (Aygestin) 5 mg tablet Discontinued 5 mg PO DAILY 45 1 March 01, 2023 3:58pm October 20, 2023 11:30am Menorrhagia Excessive and frequent menstruation with regular cycle take 1 tab twice a day for 3 days, then 1 pill daily for remainder of pills. nystatin [id number] unt/ml topical cream (20 sources) Polyene Antifungal Start: 04-01-2025 End: 04-15-2025 Nystatin 100,000 unit/gram cream Discontinued 1 NMA TOPICAL TWICE A DAY 30 14 0 March 31, 2025 11:00pm April 13, 2025 11:00pm April 14, 2025 11:10pm Start: 05-16-2022 End: 10-22-2023 Nystatin 100,000 unit/gram p maude Discontinued 1 NMA TOPICAL TWICE A DAY 60 1 May 16, 2022 12:00am October 22, 2023 2:23pm Start: 05-16-2022 Nystatin Activ e 1 APPLIC TOPICAL TWICE A DAY 60 May 16, 2022 1:00am Start: 05-15-2022 Nystatin Activ e 1 APPLIC TOPICAL TWICE A DAY 30 14 May 15, 2022 12:00am ondansetron 4 mg disintegrating oral tablet (15 sources) Serotonin-3 Receptor Antagonist Start: 10-01-2024 End: 02-02-2025 take 1 tablet by mouth every eight hours as needed for nausea Ondansetron 4 mg tablet,disintegrating Discontinued 4 mg PO EVERY 8 HOURS NEEDED as needed for Nausea 10 0 September 30, 2024 11:00pm February 02, 2025 1:41pm PNV no.95/ferrous fum/folic ac ( ORAL) (12 sources) End: 01-13-2025 PNV no.95/ferrous fum/folic ac ( ORAL) Take by mouth. 01/13/2025 Discontinued PNV no.95/ferrou s fum/folic ac ( ORAL) Take by mouth. Active PNV no.95/ferrou s fum/folic ac ( ORAL) Take by mouth. 0 Active Comment on above: Take by mouth. Prenat.Vits,Boubacar,Min-Iron -Folic tablet (18 sources) Start: 10-24-2021 End: 10-22-2023 Prenat.Vits,Boubacar,Fof-Wsdj-Zgt ic tablet Discontinued 1 {tbl} PO DAILY October 23, 2021 11:00pm October 22, 2023 2:23pm Start: 10-24-2021 End: 10-22-2023 Prenat.Vits,Boubacar,Wxo-Fstx-Snj ic tablet Discontinued 1 {tbl} PO DAILY October 24, 2021 12:00am October 22, 2023 3:23pm Swgdtjei-Hff-Hb-Fa 1 mg tablet (18 sources) Start: 09-03-2024 End: 02-18-2025 take 1 tablet by mouth once daily Cydqekze-Gqi-Cg-Fa 1 mg tablet Discontinued 1 {tbl} PO DAILY September 03, 2024 12:00am February 18, 2025 2:32pm Start: 09-03-2024 End: 02-18-2025 take 1 tablet by mouth once daily Rorjoony-Rbm-Aa-Fa 1 mg tablet Discontinued 1 {tbl} PO DAILY September 03, 2024 1:00am February 18, 2025 3:32pm Start: 09-03-2024 take 1 tablet by rufino th once daily Ofaxeicv-Myr-Nh-Fa 1 mg tablet Active 1 {tbl} PO DAILY September 03, 2024 1:00am sulfamethoxazole 800 mg / trimethoprim 160 mg oral tablet (15 sources) Dihydrofolate Reductase Inhibitor Antibacterial, Sulfonamide Antimicrobial Start: 10-01-2024 End: 02-02-2025 Sulfamethoxazole-Trimethopri m (Bactrim Ds) 800-160 mg tablet Discontinued 1 {tbl} PO Q12H 28 14 0 September 30, 2024 11:00pm February 02, 2025 1:41pm Problems Active Problems Problem Classification Problem Date Documented Date Episodic/Chronic Anal and rectal conditions (20 sources) Perirectal abscess; Translations: [Rectal abscess] Onset: 04-29-2025 Episodic Comment on above: Patient is a 30-year -old female who presents with recurrent versus persistent perirectal abscess status post 2 prior I&D procedures. She reports progressive pain and decreased drainage at today's visit. However, on exam today I do find some spontaneous drainage of purulent material. She denies any signs or symptoms of sepsis. I held a conversation with her and her regarding the need to eventually proceed for exam under anesthesia to determine if there is an internal opening representing a fistula in ano to avoid the scenario of recurrent episodes of abscesses. She confirms understanding. To try to bring relief I offered to try to promote drainage of the area through a third incision and drainage procedure. Patient tolerated this with minimal discomfort after a generous local block. Cultures were obtained of the drainage but given her concurrent and very minimal volume abscess cavity I concluded an additional course of antibiotics was not indicated. Anxiety disorders (20 sources) Anxiety; Translations: [Anxiety disorder, unspecified] Chronic Comment on above: no meds, counseling encouraged. stable Deficiency and other anemia (20 sources) Anemia; Translations: [Anemia, unspecified] 05-23-2022 Episodic Comment on above: asymptomatic. iron r ich foods Deficiency and other anemia (3 sources) Anemia, unspecified; Translations: [Anemia, unspecified] Episodic Diabetes mellitus without complication (20 sources) Abnormal glucose level; Translations: [Other abnormal glucose] 05-10-2022 Episodic Comment on above: 3 HR GTT Diabetes or abnormal glucose tolerance complicating ; childbirth; or the puerperium (20 sources) Gestational diabetes mellitus; Translations: [Gestational diabetes mellitus in , unspecified control] Onset: 04-29-2025 Episodic Comment on above: diagnosed 36 weeks d ue to EFW measuring large. start testing and diabetic diet, plan primary LTCS at 39 weeks. scheduled for 05/25 @ 12 with JV 2 hr pp glucose test 6 wk pp Lymphadenitis (1 source) Posterior auricular lymphadenopathy; Translations: [Localized enlarged lymph nodes] 03-17-2024 Episodic Malaise and fatigue (1 source) Fatigue; Translations: [Other fatigue] 08-21-2024 Episodic Menstrual disorders (20 sources) Menorrhagia; Translations: [Excessive and frequent menstruation with regular cycle] Onset: 01-28-2025 03-01-2023 Chronic Mycoses (9 sources) Candidiasis of skin and nail; Translations: [Candidiasis of skin and nails] Episodic Other aftercare (1 source) Encounter for follow-up examination after completed treatment for conditions other than malignant neoplasm; Translations: [Follow-up examination, following surgery, unspecified] 06-05-2022 Episodic Other complications of ; puerperium affecting management of mother (20 sources) Deliveries by ; Translations: [Delivery by section] Episodic Other complications of (20 sources) Maternal obesity complicating , childbirth and the puerperium, antepartum; Translations: [Obesity complicating , unspecified trimester] 05-25-2022 Chronic Comment on above: 1 TM GCT nl. encoura ged healthy weight gain. weekly bpp HgbA1c Other complications of (20 sources) Obesity complicating , unspecified trimester; Translations: [Obesity complicating , childbirth, or the puerperium, unspecified as to episode of care or not applicable] Onset: 04-29-2025 Chronic Other complications of (18 sources) Decreased movements, third trimester, not applicable or unspecified; Translations: [Decreased movements, affecting management of mother, antepartum condition or complication] Episodic Other complications of (20 sources) Reduced movement; Translations: [Decreased movements, third trimester, not applicable or unspecified] 04-27-2022 Episodic Comment on above: NST in triage 04/12 Other complications of (20 sources) H/O: miscarriage; Translations: [Supervision of with other poor reproductive or obstetric history, unspecified trimester] 02-18-2025 Episodic Other complications of (20 sources) High risk ; Translations: [Supervision of high risk , unspecified, unspecified trimester] 02-18-2025 Episodic Comment on above: , ALLA 10/06/25, CLINT Mccormack, Jigar PRR (GCC) , ALLA 10/06/25, CLINT Mccormack, Jigar Other complications of (20 sources) History of gestational diabetes mellitus; Translations: [Supervision of with other poor reproductive or obstetric history, unspecified trimester] 02-18-2025 Episodic Other complications of (1 source) Supervision of high risk , unspecified, unspecified trimester; Translations: [Supervision of high risk , unspecified, unspecified trimester] Onset: 04-29-2025 Episodic Other complications of (1 source) Supervision of with other poor reproductive or obstetric history, unspecified trimester; Translations: [Supervision of with other poor reproductive or obstetric history, unspecified trimester] Onset: 04-29-2025 Episodic Other eye disorders (20 sources) Corneal ulcer; Translations: [Unspecified corneal ulcer, left eye] 11-09-2020 Episodic Other eye disorders (4 sources) Ulcer of cornea of left eye; Translations: [Unspecified corneal ulcer, left eye] 11-09-2020 Episodic Other female genital disorders (19 sources) Abnormal uterine bleeding; Translations: [Other specified abnormal uterine and vaginal bleeding] 10-20-2023 Chronic Other female genital disorders (18 sources) Vaginal bleeding; Translations: [Abnormal uterine and vaginal bleeding, unspecified] 09-11-2024 Chronic Other female genital disorders (1 source) Vaginal discharge; Translations: [Other specified noninflammatory disorders of vagina] 01-13-2025 Episodic Other female genital disorders (1 source) Other specified noninflammatory disorders of vagina; Translations: [Vaginal discharge] Onset: 01-13-2025 Episodic Other nutritional; endocrine; and metabolic disorders (20 sources) Body mass index 40+ - severely obese; Translations: [Body mass index (BMI) 40.0-44.9, adult] 08-09-2024 Chronic Other nutritional; endocrine; and metabolic disorders (20 sources) H/O: hypothyroidism; Translations: [Personal history of other endocrine, nutritional and metabolic disease] 02-18-2025 Episodic Comment on above: TSH, T4, TSH R AB TSH, T4, TSH R AB ne gative Other nutritional; endocrine; and metabolic disorders (1 source) Personal history of other endocrine, nutritional and metabolic disease; Translations: [Personal history of other endocrine, nutritional and metabolic disease] Onset: 04-29-2025 Episodic Other conditions (20 sources) Exceptionally large at ; Translations: [Exceptionally large baby] 05-25-2022 Episodic Comment on above: repeat 1 hr gct, melissa jalloh discuss mode of delivery after formal US report in, Failed 1 HR GCT Other conditions (14 sources) Exceptionally large baby; Translations: [Exceptionally large baby] Episodic Other and delivery including normal (20 sources) Normal ; Translations: [Encounter for supervision of normal first , unspecified trimester] Onset: 08-04-2024 Episodic Comment on above: PRR ALLA: 2 boy [place] Spouse:Jigar proceed with primary LTCS due to EFW over 4500g and GDM GBS Negative, anatom y nl, declined carrier and ntd screen, NIPT low risk, 04/09 growth 99% repeat in 4 weeks per formal US. elects NIPT with Gen sb, decline carrier elects NIPT with Gen sb, decline carrier. NIPT low risk fraternal twins. per formal US. Growt h scans monthly. Other upper respiratory infections (1 source) Bacterial sinusitis; Translations: [Chronic sinusitis, unspecified] 08-21-2024 Chronic Other upper respiratory infections (7 sources) Acute upper respiratory infection; Translations: [Acute upper respiratory infection, unspecified] Onset: 01-26-2025 12-02-2023 Episodic Otitis media and related conditions (6 sources) Acute left otitis media; Translations: [Otitis media, unspecified, left ear] Episodic Ovarian cyst (18 sources) Cyst of ovary; Translations: [Unspecified ovarian cyst, unspecified side] 11-14-2023 Episodic Comment on above: 10/20/23 ultrasound; 3.8 cm right ovary. Residual codes; unclassified (3 sources) History of uterine scar from previous surgery; Translations: [Other postprocedural status] Onset: 04-29-2025 06-05-2022 Episodic Residual codes; unclassified (1 source) 17 weeks gestation of ; Translations: [17 weeks gestation of ] Onset: 04-29-2025 Episodic Residual codes; unclassified (1 source) 13 weeks gestation of ; Translations: [13 weeks gestation of ] Onset: 04-02-2025 Episodic Residual codes; unclassified (1 source) 8 weeks gestation of ; Translations: [8 weeks gestation of ] Onset: 02-26-2025 Episodic Superficial injury; contusion (20 sources) Right wrist contusion; Translations: [Contusion of right wrist, initial encounter] 11-01-2019 Episodic Thyroid disorders (20 sources) Hypothyroidism; Translations: [Hypothyroidism, unspecified] Onset: 12-10-2024 Chronic Comment on above: labs every trimester Unclassified (1 source) No history of clinical finding in subject; Translations: [No significant past medical history] Unclassified (4 sources) K61.1 - Rectal abscess Urinary tract infections (15 sources) Pyelonephritis; Translations: [Tubulo-interstitial nephritis, not specified as acute or chronic] 10-01-2024 Episodic Past or Other Problems Problem Classification Problem Date Documented Da te Episodic/Chronic Abdominal pain (20 sources) Right upper quadrant pain; Translations: [Right upper quadrant pain] Onset: 10-06-2024 09-24-2024 Episodic Fever of unknown origin (1 source) Fever, unspecified; Translations: [Fever, unspecified] Onset: 10-04-2024 Episodic Hemorrhage during ; abruptio placenta; placenta previa (20 sources) Threatened miscarriage; Translations: [Threatened ] Onset: 09-16-2024 02-02-2025 Episodic Other screening for suspected conditions (not mental disorders or infectious disease) (1 source) Other specified abnormal findings of blood chemistry; Translations: [Other specified abnormal findings of blood chemistry] Onset: 02-03-2025 Episodic Spontaneous (20 sources) Miscarriage; Translations: [Complete or unspecified spontaneous without complication] Onset: 10-05-2024 09-11-2024 Episodic Unclassified (10 sources) Normal labor; Translations: [Active labor at term] Results Test Name Value Interpretation Reference Range Facility Wound Cultureon 05-17-2025 WC Escherichia coli Amount Growth Rare Escherichia coli: REACTION Ampicillin Islt MARY >=32 Ampicillin+Sulbac Islt MARY 16 I Cefepime Islt MARY <=0.12 S cefTRIAXone Islt MARY <=0.25 S Ciprofloxacin Islt MARY <=0.06 S B-Lactamase Extended Susc Islt NEG Gentamicin Islt MARY <=1 S levoFLOXacin Islt MARY <=0.12 S Meropenem Islt MARY <=0.25 S Pip+Tazo Islt MARY <=4 S TMP SMX Islt MARY >=320 R Normal [facility] Comment on above: Performed By: #### M 100.1999, M100.3000 ####[facility] [address] [place], [place], [id number] Gram Stainon 05-14-2025 GS Gram Stain No organisms seen No Epithelial cells Normal [facility] Comment on above: Performed By: #### M 100.1999, M100.3000 ####[facility] [address] [place], [address] Gram stainOrdered By: Janki Fink on 05-14-2025 Microscopic observation Gram stain Nom (Unsp spec) [facility] Surgery Visit Reporton 05-14 Surgery Visit Report [facility] [address] [place] [address] OFFICE VISIT Date of Service: 05/14/25 MR#: [id number] Acct: [id number] Name: SKYE BRISCOE Rep #: [id number] : 1995 Provider: Dr. Jn colbert MD Age/Sex: 30/F Location: [facility] Status: Signed Intake Vital Signs 04/28/25 15:18 05/14/25 14:47 Height 5 ft 5 in 5 ft 5 in Weight: 231 lb 5 oz BMI 38.5 BP 131/79 H Intake Visit Reasons: Perianal abscess- SW PT Chief Complaint: perianal abscess- SW pt Is patient in pain?: Yes Allergies tetracycline Allergy (Mild, Verified 05/14/25 15:15) Hives Medications ???Medication ???Instructions ???Recorded ???Confirmed ???Type multivit-min no.71-iron fum 28 cap PO 02/18/25 05/14/25 History mg-folate no.1 1 mg-dha 300 mg capsule (PNV-[place]) PFSH Medical History Seasonal allergies Ovarian cyst Active labor at term Infertility Thyroid disorder Superficial varicosities Macrosomia Obesity affecting Supervision of normal first Anxiety Surgical History Delivery by section Family History Father Diabetes CAD (coronary artery disease) Hypertension Grandfather Kidney disease Paternal Cancer Maternal- skin Parkinsons disease Paternal Mother Cancer skin Social History adopted: No household members: spouse and children housing: house number of children: 1 current occupational status: employed current occupation: [employer] current occupational exposures/hazards: No pets and animals: Yes (avoid litter box) pets and animals: cat(s) and dog(s) history of recent travel: No sexually active: Yes Smoking Status: Never smoker alcohol intake: current alcohol intake frequency: a few times a month details: not while substance use type: does not use well-balanced diet: daily or most days caffeine: Yes Type: carbonated beverages Number of servings: 1 eating out: 1-3 times/week during the past year weight has: decreased > 10 lbs what type of physical activity do you participate in: weight training frequency: 5-6 times per week duration: 15-30 minutes/day armando/amish: Zoroastrianism seatbelt use: always do you feel safe at home: Yes additional social history: Spouse-Melina Johnson Female Reproductive History Menstrual Ab spontaneous: 1 HPI HPI HPI: Patient is a 30-year-old female who presents for complaint of recurrent perirectal abscess. She underwent prior incision and drainage procedures first with Dr. Antunez in March of this year followed by a procedure with SARAH Mccauley on 04/29/2025. She is accompanied by her . The patient reports that the abscess feels larger and is causing discomfort when walking.Patient states that the area of prior intervention is no longer draining. She completed a course of antibiotics 2-3 days ago. She denies fever, chills, or drainage issues. She has no history of smoking or antibiotic allergies. She denies any history of perirectal abscesses prior to the current condition starting in March The patient is currently with twins and will be 20 weeks along on Saturday. She reports regular bowel movements, though she occasionally experiences constipation due to . 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 ROS General General: Yes weight change and fatigue; No appetite, colon cancer, breast cancer or weakness HEENT HEENT: No difficulty swallowing, eye injury, eye surgery, swollen glands or hoarseness Endo Endocrine: No thyroid disease, diabetes mellitus, thyroid cancer, Hair loss, heat intolerance or cold intolerance Skin Skin: No rash or changing moles Musc Musculoskeletal: Yes back problems and arthritis; No rheumatoid arthritis, gout or joint pain Cardio Cardiovascular: No murmur, pacemaker, heart disease, atrial fibrillation, high blood pressure, heart attack, heart stent, palpitations, shortness of breath with exertion or chest pain Psych Psychiatric: No depression, anxiety or hearing voices Resp Respiratory: No shortness of breath, No sleep apnea, No cough, No COPD, No asthma, No emphysema and No wheezing Gastro Gastrointestinal: No abdominal pain, Yes nausea or vomiting, No diarrhea, No constipation, No blood in stool, No acid reflux, No hemorrhoids, No ulcers, No gallbladder problem and No black,tarry stools Jonas Hematologic: No blood thinners, No blood disorders, No bleeding, No anemia and No blood clots Neuro Neurologic: No system reviewed and n (more content not included)... Normal [facility] Surgery Visit Reporton 05-06 Surgery Visit Report [facility] [address] [place] [address] OFFICE VISIT Date of Service: 05/06/25 MR#: [id number] Acct: [id number] Name: SKYE BRISCOE Rep #: [id number] : 1995 Provider: ELIGIO funk Age/Sex: 30/F [place] [facility] Status: Signed Intake Vital Signs 04/28/25 15:18 Height 5 ft 5 in Weight: 231 lb 5 oz BMI 38.5 BP 131/79 H Intake Visit Reasons: recheck abcess/drainage Chief Complaint: rechec abscess/ drainage Is patient in pain?: No Allergies tetracycline Allergy (Mild, Verified 05/06/25 13:32) Hives Medications ???Medication ???Instructions ???Recorded ???Confirmed ???Type multivit-min no.71-iron fum 28 cap PO 02/18/25 05/06/25 History mg-folate no.1 1 mg-dha 300 mg capsule (PNV-[place]) PFSH Medical History Seasonal allergies Ovarian cyst Active labor at term Infertility Thyroid disorder Superficial varicosities Macrosomia Obesity affecting Supervision of normal first Anxiety Surgical History Delivery by section Family History Father Diabetes CAD (coronary artery disease) Hypertension Grandfather Kidney disease Paternal Cancer Maternal- skin Parkinsons disease Paternal Mother Cancer skin Social History adopted: No household members: spouse and children housing: house number of children: 1 current occupational status: employed current occupation: [employer] current occupational exposures/hazards: No pets and animals: Yes (avoid litter box) pets and animals: cat(s) and dog(s) history of recent travel: No sexually active: Yes Smoking Status: Never smoker alcohol intake: current alcohol intake frequency: a few times a month details: not while substance use type: does not use well-balanced diet: daily or most days caffeine: Yes Type: carbonated beverages Number of servings: 1 eating out: 1-3 times/week during the past year weight has: decreased > 10 lbs what type of physical activity do you participate in: weight training frequency: 5-6 times per week duration: 15-30 minutes/day armando/amish: Zoroastrianism seatbelt use: always do you feel safe at home: Yes additional social history: Spouse-Melina Johnson Female Reproductive History Menstrual Ab spontaneous: 1 HPI HPI HPI: Patient is a 30 y/o F I am following s/p incision and drainage of a perianal abscess at the 1 o'clock position by myself on 04/29/25. Patient tolerated the procedure well. She contacted our office yesterday noting greenish drainage from the incision and was concerned. She notes having 1 or 2 days left of the antibiotics. She notes tolerating the antibiotics well. She notes the drainage has been bloody up until a day or two ago when she noticed greenish drainage. She notes a moderate amount yesterday followed by a small amount today. She notes the drainage with movement/activity. She denies any fever. She notes performing sitz bathes occasionally. She notes very little to no pain in the area. ROS General General: Yes weight change and fatigue; No appetite, colon cancer, breast cancer or weakness HEENT HEENT: No difficulty swallowing, eye injury, eye surgery, swollen glands or hoarseness Endo Endocrine: No thyroid disease, diabetes mellitus, thyroid cancer, Hair loss, heat intolerance or cold intolerance Skin Skin: No rash or changing moles Musc Musculoskeletal: Yes back problems and arthritis; No rheumatoid arthritis, gout or joint pain Cardio Cardiovascular: No murmur, pacemaker, heart disease, atrial fibrillation, high blood pressure, heart attack, heart stent, palpitations, shortness of breath with exertion or chest pain Psych Psychiatric: No depression, anxiety or hearing voices Resp Respiratory: No shortness of breath, No sleep apnea, No cough, No COPD, No asthma, No emphysema and No wheezing Gastro Gastrointestinal: No abdominal pain, Yes nausea or vomiting, No diarrhea, No constipation, No blood in stool, No acid reflux, No hemorrhoids, No ulcers, No gallbladder problem and No black,tarry stools Jonas Hematologic: No blood thinners, No blood disorders, No bleeding, No anemia and No blood clots Neuro Neurologic: No system reviewed and no additional complaints, except as documented, No as per HPI, No abnormal gait, No abnormal hearing, No abnormal movements, No abnormal speech, No behavioral changes, No burning sensations, No confusion, No convulsions, No disequilibrium, No dizziness, No localized weakness, No frequent falls, (more content not included)... Normal [facility] Surgery Visit Reporton 04-29 Surgery Visit Report [facility] [address] [place] [address] OFFICE VISIT Date of Service: 04/29/25 MR#: [id number] Acct: [id number] Name: SYKE BRISCOE Rep #: [id number] : 1995 Provider: ELIGIO funk Age/Sex: 30/F Location: [facility] Status: Signed Intake Vital Signs 04/28/25 15:18 Height 5 ft 5 in Weight: 231 lb 5 oz BMI 38.5 BP 131/79 H Intake Visit Reasons: CAMERON-RECTAL ABSCESS Chief Complaint: perirectal abscess Is patient in pain?: Yes (painful at abcess site) Allergies tetracycline Allergy (Mild, Verified 04/29/25 10:06) Hives Medications ???Medication ???Instructions ???Recorded ???Confirmed ???Type multivit-min no.71-iron fum 28 cap PO 02/18/25 04/29/25 History mg-folate no.1 1 mg-dha 300 mg capsule (PNV-[place]) amoxicillin 875 mg-potassium 1 tab PO BID 7 days #14 tabs 04/2904/29/25 Rx clavulanate 125 mg tablet Patient : Yes PFSH Medical History Seasonal allergies Ovarian cyst Active labor at term Infertility Thyroid disorder Superficial varicosities Macrosomia Obesity affecting Supervision of normal first Anxiety Surgical History Delivery by section Family History Father Diabetes CAD (coronary artery disease) Hypertension Grandfather Kidney disease Paternal Cancer Maternal- skin Parkinsons disease Paternal Mother Cancer skin Social History adopted: No household members: spouse and children housing: house number of children: 1 current occupational status: employed current occupation: [employer] current occupational exposures/hazards: No pets and animals: Yes (avoid litter box) pets and animals: cat(s) and dog(s) history of recent travel: No sexually active: Yes Smoking Status: Never smoker alcohol intake: current alcohol intake frequency: a few times a month details: not while substance use type: does not use well-balanced diet: daily or most days caffeine: Yes Type: carbonated beverages Number of servings: 1 eating out: 1-3 times/week during the past year weight has: decreased > 10 lbs what type of physical activity do you participate in: weight training frequency: 5-6 times per week duration: 15-30 minutes/day armando/amish: Zoroastrianism seatbelt use: always do you feel safe at home: Yes additional social history: Spouse-Melina Johnson Female Reproductive History Menstrual Ab spontaneous: 1 HPI HPI HPI: Patient is a 30 y/o F I am seeing for a painful lump of the anus. She notes seeing Dr. Antunez at the end of March for an abscess in the same area. She states she believes this never completely resolved. She notes 2 days ago the pain had returned. She was evaluated by Dr. Mullen yesterday who recommended she be evaluated by our office. Patient denies any fever. She notes tenderness in the area. She denies any drainage. ROS General General: Yes weight change and fatigue; No appetite, colon cancer, breast cancer or weakness HEENT HEENT: No difficulty swallowing, eye injury, eye surgery, swollen glands or hoarseness Endo Endocrine: No thyroid disease, diabetes mellitus, thyroid cancer, Hair loss, heat intolerance or cold intolerance Skin Skin: No rash or changing moles Musc Musculoskeletal: Yes back problems and arthritis; No rheumatoid arthritis, gout or joint pain Cardio Cardiovascular: No murmur, pacemaker, heart disease, atrial fibrillation, high blood pressure, heart attack, heart stent, palpitations, shortness of breath with exertion or chest pain Psych Psychiatric: No depression, anxiety or hearing voices Resp Respiratory: No shortness of breath, No sleep apnea, No cough, No COPD, No asthma, No emphysema and No wheezing Gastro Gastrointestinal: No abdominal pain, Yes nausea or vomiting, No diarrhea, No constipation, No blood in stool, No acid reflux, No hemorrhoids, No ulcers, No gallbladder problem and No black,tarry stools Jonas Hematologic: No blood thinners, No blood disorders, No bleeding, No anemia and No blood clots Neuro Neurologic: No system reviewed and no additional complaints, except as documented, No as per HPI, No abnormal gait, No abnormal hearing, No abnormal movements, No abnormal speech, No behavioral changes, No burning sensations, No confusion, No convulsions, No disequilibrium, No dizziness, No localized weakness, No frequent falls, No headache(s), No lack of coordination, No loss of vision, No memory loss, Yes numbness, No other visual disturbances, No radicular pain, No restless l (more content not included)... 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 Required: No Is patient in pain?: No Allergies tetracycline Allergy (Mild, Verified 04/28/25 15:25) Hives Medications ???Medication ???Instructions ???Recorded ???Confirmed ???Type multivit-min no.71-iron fum 28 cap PO 02/18/25 04/28/25 History mg-folate no.1 1 mg-dha 300 mg capsule (PNV-[place]) amoxicillin 875 mg-potassium 1 tab PO BID #10 tabs 04/01/25 Rx clavulanate 125 mg tablet Last Menstrual Period: 08/25/21 Zika: Zika virus screening: Negative : No PFSH PFSH Medical History Seasonal allergies Ovarian cyst Active labor at term Infertility Thyroid disorder Superficial varicosities Macrosomia Obesity affecting Supervision of normal first Anxiety Surgical History Delivery by section Family History Father Diabetes CAD (coronary artery disease) Hypertension Grandfather Kidney disease Paternal Cancer Maternal- skin Parkinsons disease Paternal Mother Cancer skin Social History adopted: No household members: spouse and children housing: house number of children: 1 current occupational status: employed current occupation: [employer] current occupational exposures/hazards: No pets and animals: Yes (avoid litter box) pets and animals: cat(s) and dog(s) history of recent travel: No sexually active: Yes Smoking Status: Never smoker alcohol intake: current alcohol intake frequency: a few times a month details: not while substance use type: does not use well-balanced diet: daily or most days caffeine: Yes Type: carbonated beverages Number of servings: 1 eating out: 1-3 times/week during the past year weight has: decreased > 10 lbs what type of physical activity do you participate in: weight training frequency: 5-6 times per week duration: 15-30 minutes/day armando/amish: Zoroastrianism seatbelt use: always do you feel safe at home: Yes additional social history: Spouse-Melina Johnson History 3 Elective abortions Hx Para 1 Spontaneous abortions 1 Hx # Term Pregnancies Ectopic pregnancies Hx # Pregnancies Multiple births # of living children 1 Past Pregnancies Del. Date Name GA/Weeks Outcome Route Bth Weight Gen Labor Lgth Anesthesia Del Locatn Provider FOB 05/21/22 [place] 38 live - full term 9#6oz Male spinal H Je nnflorence Anthony 08/31/24 6 spontaneous Delivery Date: 05/21/22 Last Updated by: Tiesha Dominguez primary section for macrosomia HPI 17 WK OB *twins Details: SKYE BRISCOE is a 30 year old who presents for routine OB visit. OB Visit ALLA Calculator Estimated Delivery Date Method Current WG Current Estimate 10/06/25 Ultrasound #2 17w 0d Other Estimates 10/01/25 Ultrasound #1 17w 5d # 2 Expected Delivery Route/Plan RLTCS Specific Issue/Plans Covid status: [] Flu vaccine: [] Tdap vaccine: [] Rhogam: [] LARC form signed: [] Problem list reviewed and updated with the most current plan of care details and appropriate orders placed. Relevant counseling for the gestational age provided. Continue routine care and follow up unless otherwise noted in visit notes/problem list details Initial Weight: Not Recorded Date -???-???-???-???-???-?? ?-???-???-???-???-???-? ??- EGA Weight BP Urine Prot -???-???-???-???-???-?? ?-???-???-???-???-???-? ??- Glucose FHR FuHt Pres Dilation -???-???-???-???-???-?? ?-???-???-???-???-???-? ??- Effaced St Visit Note 02/26/25 -???-???-???-???-???-?? ?-???-???-???-???-???-? ??- 8w 2d 221 lb 136/82 -???-???-???-???-???-?? ?-???-???-???-???-???-? ??- A 175 -???-???-???-???-???-?? ?-???-???-???-???-???-? ??- B 175 A -???-???-???-???-???-?? ?-???-???-???-???-???-? ??- B -???-???-???-???-???-?? ?-???-???-???-???-???-? ??- A -???-???-???-???-???-?? ?-???-???-???-???-???-? ??- B A SM- CRl cons with ea ch other -???-???-???-???-???-?? ?-???-???-???-???-???-? ??- B 04/01/25 -???-???-???-???-???-?? ?-???-?? (more content not included)... Normal [facility] Quick Sketch Artist Office Visit Reporton 04-26-2025 Quick Sketch Artist Office Visit Report [facility] [address], [address] [place] [address] OFFICE VISIT Date of Service: 04/26/25 MR#: [id number] Acct: [id number] Name: SKYE BRISCOE Rep #: [id number] : 1995 Provider: Dr. Ashley roberts MD Age/Sex: 30/F Location[facility] Status: Signed Intake Vital Signs 04/02/25 14:59 04/26/25 14:36 Height 5 ft 5 in 5 ft 5 in Weight: 231 lb BMI 38.4 BP 145/83 H Intake Visit Reasons: 16w5d twins* spotting, cramping per SM Event Promoter Required: No Is patient in pain?: Yes (cramping) Allergies tetracycline Allergy (Mild, Verified 04/26/25 14:40) Hives Medications ???Medication ???Instructions ???Recorded ???Confirmed ???Type multivit-min no.71-iron fum 28 cap PO 02/18/25 04/26/25 History mg-folate no.1 1 mg-dha 300 mg capsule (PNV-[place]) amoxicillin 875 mg-potassium 1 tab PO BID #10 tabs 04/01/25 Rx clavulanate 125 mg tablet Last Menstrual Period: 08/25/21 Zika: Zika virus screening: Negative : No PFSH PFSH Medical History Seasonal allergies Ovarian cyst Active labor at term Infertility Thyroid disorder Superficial varicosities Macrosomia Obesity affecting Supervision of normal first Anxiety Surgical History Delivery by section Family History Father Diabetes CAD (coronary artery disease) Hypertension Grandfather Kidney disease Paternal Cancer Maternal- skin Parkinsons disease Paternal Mother Cancer skin Social History adopted: No household members: spouse and children housing: house number of children: 1 current occupational status: employed current occupation: [employer] current occupational exposures/hazards: No pets and animals: Yes (avoid litter box) pets and animals: cat(s) and dog(s) history of recent travel: No sexually active: Yes Smoking Status: Never smoker alcohol intake: current alcohol intake frequency: a few times a month details: not while substance use type: does not use well-balanced diet: daily or most days caffeine: Yes Type: carbonated beverages Number of servings: 1 eating out: 1-3 times/week during the past year weight has: decreased > 10 lbs what type of physical activity do you participate in: weight training frequency: 5-6 times per week duration: 15-30 minutes/day armando/amish: Zoroastrianism seatbelt use: always do you feel safe at home: Yes additional social history: Spouse-Melina Johnson History 3 Elective abortions Hx Para 1 Spontaneous abortions 1 Hx # Term Pregnancies Ectopic pregnancies Hx # Pregnancies Multiple births # of living children 1 Past Pregnancies Del. Date Name GA/Weeks Outcome Route Bth Weight Infant Gen Labor Lgth Anesthesia Del Locatn Provider FOB 05/21/22 [place] 38 live - full term 9#6oz Male spinal [facility] Je coy Anthony 08/31/24 6 spontaneous Delivery Date: 05/21/22 Last Updated by: Tiesha Dominguez primary section for macrosomia HPI 16w5d twins* spotting, cramping per SM Details: SKYE BRISCOE is a 30 year old who presents for routine OB visit. OB Visit ALLA Calculator Estimated Delivery Date Method Current WG Current Estimate 10/06/25 Ultrasound #2 16w 6d Other Estimates 10/01/25 Ultrasound #1 17w 4d # 2 Expected Delivery Route/Plan RLTCS Specific Issue/Plans Covid status: [] Flu vaccine: [] Tdap vaccine: [] Rhogam: [] LARC form signed: [] Problem list reviewed and updated with the most current plan of care details and appropriate orders placed. Relevant counseling for the gestational age provided. Continue routine care and follow up unless otherwise noted in visit notes/problem list details Initial Weight: Not Recorded Date -???-???-???-???-???-?? ?-???-???-???-???-???-? ??- EGA Weight BP Urine Prot -???-???-???-???-???-?? ?-???-???-???-???-???-? ??- Glucose FHR FuHt Pres Dilation -???-???-???-???-???-?? ?-???-???-???-???-???-? ??- Effaced St Visit Note 02/26/25 -???-???-???-???-???-?? ?-???-???-???-???-???-? ??- 8w 2d 221 lb 136/82 -???-???-???-???-???-?? ?-???-???-???-???-???-? ??- A 175 -???-???-???-???-???-?? ?-???-???-???-???-???-? ??- B 175 A -???-???-???-???-???-?? ?-???-???-???-???-???-? ??- B -???-???-???-???-???-?? ?-???-???-???-???-???-? ??- A -???-???-???-???-???-?? ?-???-???-???-???-???-? ??- B A SM- CRl cons with ea ch other -???-???-???-???-???-?? ?-???-???-???-???-???-? ??- B 04/01/25 -???- (more content not included)... Normal [facility] Surgery Visit Reporton 04-02 Surgery Visit Report [facility] [address] [place] [address] OFFICE VISIT Date of Service: 04/02/25 MR#: [id number] Acct: [id number] Name: SKYE BRISCOE Rep #: [id number] : 1995 Provider: Dr. Damian trujillo MD Age/Sex: 30/F Location: [facility] Status: Signed Intake Vital Signs 04/01/25 15:21 04/02/25 14:59 Height 5 ft 5 in 5 ft 5 in Weight: 223 lb 225 lb BMI 37.0 37.4 BP 138/87 H 149/88 H Blood Pressure Location Rt brachial Position Sitting Respiration 17 Pulse 77 Pulse Source Monitor Pulse Oximetry (%) 100 Oxygen Delivery Method room air Intake Visit Reasons: RECTAL ABSCESS Chief Complaint: perirectal abscess Is patient in pain?: Yes (abscess area sore) Allergies tetracycline Allergy (Mild, Verified 04/02/25 15:00) Hives Medications ???Medication ???Instructions ???Recorded ???Confirmed ???Type multivit-min no.71-iron fum 28 cap PO 02/18/25 04/02/25 History mg-folate no.1 1 mg-dha 300 mg capsule (PNV-[place]) amoxicillin 875 mg-potassium 1 tab PO BID #10 tabs 04/01/25 Rx clavulanate 125 mg tablet nystatin 100,000 unit/gram topical 1 applic topical BID 14 days #30 04/01/25 04/02/25 Rx cream grams PFSH Medical History Seasonal allergies Ovarian cyst Active labor at term Infertility Thyroid disorder Superficial varicosities Macrosomia Obesity affecting Supervision of normal first Anxiety Surgical History Delivery by section Family History Father Diabetes CAD (coronary artery disease) Hypertension Grandfather Kidney disease Paternal Cancer Maternal- skin Parkinsons disease Paternal Mother Cancer skin Social History adopted: No household members: spouse and children housing: house number of children: 1 current occupational status: employed current occupation: [employer] current occupational exposures/hazards: No pets and animals: Yes (avoid litter box) pets and animals: cat(s) and dog(s) history of recent travel: No sexually active: Yes Smoking Status: Never smoker alcohol intake: current alcohol intake frequency: a few times a month details: not while substance use type: does not use well-balanced diet: daily or most days caffeine: Yes Type: carbonated beverages Number of servings: 1 eating out: 1-3 times/week during the past year weight has: decreased > 10 lbs what type of physical activity do you participate in: weight training frequency: 5-6 times per week duration: 15-30 minutes/day armando/amish: Zoroastrianism seatbelt use: always do you feel safe at home: Yes additional social history: Spouse-Melina Johnson Female Reproductive History Menstrual Ab spontaneous: 1 HPI HPI HPI: The patient is a 30-year-old female who is being seen today for presumably a perirectal abscess. She is currently with twins. She had an OB appointment and complained of perianal pain. She was placed on antibiotics and was referred to general surgery to have this evaluated. She states that this has been present for about 1 week. She denies drainage. No fevers or chills. ROS General General: Yes weight change and fatigue; No appetite, colon cancer, breast cancer or weakness HEENT HEENT: No difficulty swallowing, eye injury, eye surgery, swollen glands or hoarseness Endo Endocrine: No thyroid disease, diabetes mellitus, thyroid cancer, Hair loss, heat intolerance or cold intolerance Skin Skin: No rash or changing moles Musc Musculoskeletal: Yes back problems and arthritis; No rheumatoid arthritis, gout or joint pain Cardio Cardiovascular: No murmur, pacemaker, heart disease, atrial fibrillation, high blood pressure, heart attack, heart stent, palpitations, shortness of breath with exertion or chest pain Psych Psychiatric: No depression, anxiety or hearing voices Resp Respiratory: No shortness of breath, No sleep apnea, No cough, No COPD, No asthma, No emphysema and No wheezing Gastro Gastrointestinal: No abdominal pain, Yes nausea or vomiting, No diarrhea, No constipation, No blood in stool, No acid reflux, No hemorrhoids, No ulcers, No gallbladder problem and No black,tarry stools Jonas Hematologic: No blood thinners, No blood disorders, No bleeding, No anemia and No blood clots Neuro Neurologic: No system reviewed and no additional complaints, except as documented, No as per HPI, No abnormal gait, No abnormal hearing, No abnormal movements, No abnormal speech, No behavioral changes, No burning sensations, No confusion, No convulsio (more content not included)... Normal [facility] - Chemistry and C hemistry - challengeOrdered By: Prudence Robertson on 04-01-2025 Glucose Ql (U) Negative [facility] - UrinalysisOrder ed By: Prudence Robertson on 09-25-2025 Protein Ql (U) Negative [facility] Quick Sketch Artist Office Visit Reporton 04-01-2025 Quick Sketch Artist Office Visit Report [facility] [address], [address] [place] [address] OFFICE VISIT Date of Service: 04/01/25 MR#: [id number] Acct: [id number] Name: SKYE BRISCOE Rep #: [id number] : 1995 Provider: Dr. Prudence Dumont, Age/Sex: 30/F Location[place] [facility] [place]: Signed Intake Vital Signs 02/16/25 16:00 02/26/25 13:08 04/01/25 15:21 Height 5 ft 5 in 5 ft 5 in 5 ft 5 in Weight: 223 lb BMI 37.0 BP 138/87 H Intake Visit Reasons: 12wk OB Chief Complaint: 12wk OB Event Promoter Required: No Is patient in pain?: No Allergies tetracycline Allergy (Mild, Verified 04/01/25 15:19) Hives Medications ???Medication ???Instructions ???Recorded ???Confirmed ???Type multivit-min no.71-iron fum 28 cap PO 02/18/25 04/01/25 History mg-folate no.1 1 mg-dha 300 mg capsule (PNV-[place]) amoxicillin 875 mg-potassium 1 tab PO BID #10 tabs 04/01/25 Rx clavulanate 125 mg tablet nystatin 100,000 unit/gram topical 1 applic topical BID 14 days #30 04/01/25 04/01/25 Rx cream grams Last Menstrual Period: 08/25/21 : No PFSH PFSH Medical History Seasonal allergies Ovarian cyst Active labor at term Infertility Thyroid disorder Superficial varicosities Macrosomia Obesity affecting Supervision of normal first Anxiety Surgical History Delivery by section Family History Father Diabetes CAD (coronary artery disease) Hypertension Grandfather Kidney disease Paternal Cancer Maternal- skin Parkinsons disease Paternal Mother Cancer skin Social History adopted: No household members: spouse and children housing: house number of children: 1 current occupational status: employed current occupation: [employer] current occupational exposures/hazards: No pets and animals: Yes (avoid litter box) pets and animals: cat(s) and dog(s) history of recent travel: No sexually active: Yes Smoking Status: Never smoker alcohol intake: current alcohol intake frequency: a few times a month details: not while substance use type: does not use well-balanced diet: daily or most days caffeine: Yes Type: carbonated beverages Number of servings: 1 eating out: 1-3 times/week during the past year weight has: decreased > 10 lbs what type of physical activity do you participate in: weight training frequency: 5-6 times per week duration: 15-30 minutes/day armando/amish: Zoroastrianism seatbelt use: always do you feel safe at home: Yes additional social history: Spouse-Jigar- Alex History 3 Elective abortions Hx Para 1 Spontaneous abortions 1 Hx # Term Pregnancies Ectopic pregnancies Hx # Pregnancies Multiple births # of living children 1 Past Pregnancies Del. Date Name GA/Weeks Outcome Route Bth Weight Infant Gen Labor Lgth Anesthesia Del Locatn Provider FOB 05/21/22 [place] 38 live - full term 9#6oz Male spinal [facility] Je nnifer Radha Ailyn Avilesy 08/31/24 6 spontaneous Delivery Date: 05/21/22 Last Updated by: Tiesha Dominguez primary section for macrosomia HPI 12wk OB Details: SKYE BRISCOE is a 30 year old who presents for routine OB visit. OB Visit ALLA Calculator Estimated Delivery Date Method Current WG Current Estimate 10/06/25 Ultrasound #2 13w 1d Other Estimates 10/01/25 Ultrasound #1 13w 6d # 2 Expected Delivery Route/Plan RLTCS Specific Issue/Plans Covid status: [] Flu vaccine: [] Tdap vaccine: [] Rhogam: [] LARC form signed: [] Problem list reviewed and updated with the most current plan of care details and appropriate orders placed. Relevant counseling for the gestational age provided. Continue routine care and follow up unless otherwise noted in visit notes/problem list details Initial Weight: Not Recorded Date -???-???-???-???-???-?? ?-???-???-???-???-???-? ??- EGA Weight BP Urine Prot -???-???-???-???-???-?? ?-???-???-???-???-???-? ??- Glucose FHR FuHt Pres Dilation -???-???-???-???-???-?? ?-???-???-???-???-???-? ??- Effaced St Visit Note 02/26/25 -???-???-???-???-???-?? ?-???-???-???-???-???-? ??- 8w 2d 221 lb 136/82 -???-???-???-???-???-?? ?-???-???-???-???-???-? ??- A 175 -???-???-???-???-???-?? ?-???-???-???-???-???-? ??- B 175 A -???-???-???-???-???-?? ?-???-???-???-???-???-? ??- B -???-???-???-???-???-?? ?-???-???-???-???-???-? ??- A -???-???-???-???-???-?? ?-???-???-???-???-???-? ??- B A SM- CRl cons with ea ch other -???-???-???-???-???-?? ?-???-??? (more content not included)... Normal [facility] [id number] 03-19-2025 [facility] Misc. COMMENT Normal . [facility] Comment on above: Order Comment: [id number] 8TSH R AB Result Comment: Test Ordered: [id number] TSH Receptor Antibody (TBII) TSH Receptor Antibody (TBII) <0.5 U/L ES Reference Range: . Reference Range: Antibody Titer: <1.0 U/L = Negative 1.1 - 1.5 U/L = Equivocal >1.5 U/L = Positive Performed at: [employer] [address] [place] [id number] Roll On Man: Ashlyn Tai MD, Phone: [phone] Performed at: [facility] [id number] Roll On Man: Matthew Rascon PhD, Phone: [phone] Performed By: #### L 509.4006, L900.0098, L3410.9992, L3890.6301, BTS, L3890.6006, L3890.6102, L501.9520, L509.8002, L501.9985, L506.0400, L100.0100 ####[facility] [address] [place], [address] Absolute lymphocyte countOrd ered By: Ashley Mullen on 03-11-2025 Lymphocytes Auto (Unsp spec) [#/Vol] 2.33 10*3/uL 0.83-4.51 [facility] Absolute neutrophil countOrd ered By: Ashley Mullen on 03-11-2025 Neutrophils (Bld) [#/Vol] 7.9 10*3/uL High 2.0-7.7 [facility] Automated lymphocyte count a s percentage of total leukocytesOrdered By: Ashley Mullen on 03-11-2025 Lymphocytes/100 WBC Auto (Unsp spec) 21.0 % 19-41 [facility] Basophil percentageOrdered B y: Ashley Mullen on 03-11-2025 Basophils/100 WBC (Bld) 0.4 % 0-1 [facility] CBC W/Diff, Automatedon 09-0 4-2025 Absolute Lymph 2.33 X10 3/uL Normal 0.83-4.51 [facility] Comment on above: Performed By: #### L 509.4006, L900.0098, L3410.9992, L3890.6301, BTS, L3890.6006, L3890.6102, L501.9520, L509.8002, L501.9985, L506.0400, L100.0100 #### [facility] [address] [place], [place], [phone] (885) Absolute Neut 7.9 X10 3/uL High 2.0-7.7 [facility] Comment on above: Performed By: #### L 509.4006, L900.0098, L3410.9992, L3890.6301, BTS, L3890.6006, L3890.6102, L501.9520, L509.8002, L501.9985, L506.0400, L100.0100 #### [facility] [address] [place], [place], [phone] (001) Basophils/100 WBC (Bld) 0.4 % Normal 0-1 [facility] Comment on above: Performed By: #### L 509.4006, L900.0098, L3410.9992, L3890.6301, BTS, L3890.6006, L3890.6102, L501.9520, L509.8002, L501.9985, L506.0400, L100.0100 #### [facility] [address] [place], [place], [phone] (756) Eosinophils/100 WBC (Bld) 0.9 % Normal 0-5 [facility] Comment on above: Performed By: #### L 509.4006, L900.0098, L3410.9992, L3890.6301, BTS, L3890.6006, L3890.6102, L501.9520, L509.8002, L501.9985, L506.0400, L100.0100 #### [facility] [address] [facility] [place], [address] Erythrocyte distribution width (RBC) [Ratio] 13.2 % Normal 11.6-14.6 [facility] Comment on above: Performed By: #### L 509.4006, L900.0098, L3410.9992, L3890.6301, BTS, L3890.6006, L3890.6102, L501.9520, L509.8002, L501.9985, L506.0400, L100.0100 #### [facility] [address] [facility] [place], [address] Hematocrit (Bld) [Volume fraction] 39.3 % Normal 37-47 [facility] Comment on above: Performed By: #### L 509.4006, L900.0098, L3410.9992, L3890.6301, BTS, L3890.6006, L3890.6102, L501.9520, L509.8002, L501.9985, L506.0400, L100.0100 #### [facility] [address] [facility] [place], [address] Hemoglobin (Bld) [Mass/Vol] 13.9 g/dL Normal 12.0-15.0 [facility] Comment on above: Performed By: #### L 509.4006, L900.0098, L3410.9992, L3890.6301, BTS, L3890.6006, L3890.6102, L501.9520, L509.8002, L501.9985, L506.0400, L100.0100 #### [facility] [address] [place], [address] IG% 0.500 Normal 0.0-0.9 [facility] Comment on above: Result Comment: IG% - Immature Granulocytes (promyelocytes, myelocytes and metamyelocytes) > 1% indicates that a LEFT SHIFT is Present. Performed By: #### L 509.4006, L900.0098, L3410.9992, L3890.6301, BTS, L3890.6006, L3890.6102, L501.9520, L509.8002, L501.9985, L506.0400, L100.0100 #### [facility] [address] [place], [address] Lymphocytes/100 WBC (Bld) 21.0 % Normal 19-41 [facility] Comment on above: Performed By: #### L 509.4006, L900.0098, L3410.9992, L3890.6301, BTS, L3890.6006, L3890.6102, L501.9520, L509.8002, L501.9985, L506.0400, L100.0100 #### [facility] [address] [place], [address] MCH (RBC) [Entitic mass] 30.0 pg Normal 27.0-32.0 [facility] Comment on above: Performed By: #### L 509.4006, L900.0098, L3410.9992, L3890.6301, BTS, L3890.6006, L3890.6102, L501.9520, L509.8002, L501.9985, L506.0400, L100.0100 #### [facility] [address] [place], [address] MCHC (RBC) [Mass/Vol] 35.4 g/dL Normal 32-36 [facility] Comment on above: Performed By: #### L 509.4006, L900.0098, L3410.9992, L3890.6301, BTS, L3890.6006, L3890.6102, L501.9520, L509.8002, L501.9985, L506.0400, L100.0100 #### [facility] [address] [place], [address] MCV (RBC) [Entitic vol] 84.7 fL Normal 81-99 [facility] Comment on above: Performed By: #### L 509.4006, L900.0098, L3410.9992, L3890.6301, BTS, L3890.6006, L3890.6102, L501.9520, L509.8002, L501.9985, L506.0400, L100.0100 #### [facility] [address] [place], [address] Monocytes/100 WBC (Bld) 6.4 % Normal 0-10 [facility] Comment on above: Performed By: #### L 509.4006, L900.0098, L3410.9992, L3890.6301, BTS, L3890.6006, L3890.6102, L501.9520, L509.8002, L501.9985, L506.0400, L100.0100 #### [facility] [address], [address] Neutrophils/100 WBC (Bld) 70.8 % High 47-70 [facility] Comment on above: Performed By: #### L 509.4006, L900.0098, L3410.9992, L3890.6301, BTS, L3890.6006, L3890.6102, L501.9520, L509.8002, L501.9985, L506.0400, L100.0100 #### [facility] [address] [place], [address] Nucleated RBC (Bld) [#/Vol] 0 10*3/uL Normal 0-5 [facility] Comment on above: Performed By: #### L 509.4006, L900.0098, L3410.9992, L3890.6301, BTS, L3890.6006, L3890.6102, L501.9520, L509.8002, L501.9985, L506.0400, L100.0100 #### [facility] [address] [place], [address] Platelet mean volume (Bld) [Entitic vol] 10.0 fL Normal 6.2-12.0 [facility] Comment on above: Performed By: #### L 509.4006, L900.0098, L3410.9992, L3890.6301, BTS, L3890.6006, L3890.6102, L501.9520, L509.8002, L501.9985, L506.0400, L100.0100 #### [facility] [address] [place], [address] Platelets (Bld) [#/Vol] 227 10*3/uL Normal 150-450 [facility] Comment on above: Performed By: #### L 509.4006, L900.0098, L3410.9992, L3890.6301, BTS, L3890.6006, L3890.6102, L501.9520, L509.8002, L501.9985, L506.0400, L100.0100 #### [facility] [address] [place], [address] RBC (Bld) [#/Vol] 4.64 10*6/uL Normal 4.2-5.4 [facility] Comment on above: Performed By: #### L 509.4006, L900.0098, L3410.9992, L3890.6301, BTS, L3890.6006, L3890.6102, L501.9520, L509.8002, L501.9985, L506.0400, L100.0100 #### [facility] [address] [facility] [place], [address] RDW SD 40.2 fl Normal 35.1-43.9 [facility] Comment on above: Performed By: #### L 509.4006, L900.0098, L3410.9992, L3890.6301, BTS, L3890.6006, L3890.6102, L501.9520, L509.8002, L501.9985, L506.0400, L100.0100 #### [facility] [address] [place], [address] WBC (Bld) [#/Vol] 11.1 10*3/uL High 4.4-11.0 [facility] Comment on above: Performed By: #### L 509.4006, L900.0098, L3410.9992, L3890.6301, BTS, L3890.6006, L3890.6102, L501.9520, L509.8002, L501.9985, L506.0400, L100.0100 #### [facility] [address], [address] Eosinophil percentageOrdered By: Ashley Mullen on 03-11-2025 Eosinophils/100 WBC (Bld) 0.9 % 0-5 [facility] Erythrocyte distribution wid th ratioOrdered By: Ashley Mullen on 03-11-2025 Erythrocyte distribution width (RBC) [Ratio] 13.2 % 11.6-14.6 [facility] Erythrocyte distribution wid th standard deviationOrdered By: Ashley Mullen on 03-11-2025 Erythrocyte distribution width (RBC) [Ratio] 40.2 fl 35.1-43.9 [facility] HIVon 03-11-2025 HIV Non-Reactive Normal Nonreactive [facility] Comment on above: Result Comment: Non- Reactive Reactive Repeatedly reactive samples must be confirmed according to CDC recommended confirmatory algorithms. The subresults for either HIVAG or AHIV can be used as an aid in the selection of the confirmation algorithm for reactive samples. Send out specimens with Reactive results to [facility] for confirmation. Order the HIV antibody detection and differentiation: lc#[id number] Performed By: #### L 509.4006, L900.0098, L3410.9992, L3890.6301, BTS, L3890.6006, L3890.6102, L501.9520, L509.8002, L501.9985, L506.0400, L100.0100 ####[facility] [address] [place], [place], [id number] Hematocrit Auto (Bld) [Volum e fraction]Ordered By: Ashley Mullen on 03-11-2025 Hematocrit (Bld) [Volume fraction] 39.3 % 37-47 [facility] Hemoglobin A1con 03-11-2025 HbA1c (Bld) [Mass fraction] 4.7 % Normal <=5.6 [facility] Comment on above: Result Comment: Norm al < 5.7 % Prediabetic 5.7 - 6.4 % Diabetic >or= 6.5 % Please note range changes. Performed By: #### L 509.4006, L900.0098, L3410.9992, L3890.6301, BTS, L3890.6006, L3890.6102, L501.9520, L509.8002, L501.9985, L506.0400, L100.0100 #### [facility] [address] [place], [address] Hemoglobin A1c percentageOrd ered By: Ashley Mullen on 03-11-2025 HbA1c (Bld) [Mass fraction] 4.7 % <5.7 [facility] Comment on above: Normal < 5.7 % Predi abetic 5.7 - 6.4 % Diabetic >or= 6.5 % Please note range changes. Hemoglobin measurementOrdere d By: Ashley Mullen on 03-11-2025 Hemoglobin (Bld) [Mass/Vol] 13.9 g/dL 12.0-15.0 [facility] Hepatitis C Antibodyon 03-11 Hepatitis C Ab Non-Reactive Normal Nonreactive [facility] Comment on above: Result Comment: Reac tive: Presumptive evidence of antibodies to HCV. Follow CDC recommendations for supplemental testing. Non-Reactive: Antibodies to HCV were not detected; does not exclude the possibility of exposure to HCV Reactive Results are presumptive evidence of antibodies to HCV. Follow CDC recommendations for supplemental testing. Order confirmation testing: HCV Quant by PCR testing - HCVPCR #[id number] Non Reactive: < 0.8 Equivocal: >/= 0.8 to < 1.0 Reactive: >/= 1.0 The [facility] [place] requires that a reactive/equivocal HCV antibody result be sent out for confirmation. HCV Quant by PCR testing. Performed By: #### L 509.4006, L900.0098, L3410.9992, L3890.6301, BTS, L3890.6006, L3890.6102, L501.9520, L509.8002, L501.9985, L506.0400, L100.0100 ####[facility] [address] [place], [address] Immature granulocytes/100 WB C Auto (Bld)Ordered By: Ashley Mullen on 03-11-2025 Immature granulocytes/100 WBC (Bld) 0.500 % 0.0-0.9 [facility] Comment on above: IG% - Immature Granu locytes (promyelocytes, myelocytes and metamyelocytes) > 1% indicates that a LEFT SHIFT is Present. L3890.6102on 03-11-2025 HEP B Surf Ag Non-Reactive Normal Nonreactive [facility] Comment on above: Result Comment: Reac tive: Presumptive evidence of HBV. Repeatedly reactive samples must be confirmed using a neutralization test ([employer] HBsAg Confirmatory Test) Non-Reactive: HBsAg not detected; does not exclude the possibility of exposure to HBV Performed By: #### L 509.4006, L900.0098, L3410.9992, L3890.6301, BTS, L3890.6006, L3890.6102, L501.9520, L509.8002, L501.9985, L506.0400, L100.0100 ####[facility] [address] [place], [address] L509.4006on 03-11-2025 Rubella IgG REAC Normal Nonreactive [facility] Comment on above: Result Comment: Anti body Result: Interpretation Non-Reactive: Non-Immune Reactive: Immune The following results were obtained with the [employer] Rubella IgG assay. Results from assays of other manufacturers cannot be used interchangeably. Performed By: #### L 509.4006, L900.0098, L3410.9992, L3890.6301, BTS, L3890.6006, L3890.6102, L501.9520, L509.8002, L501.9985, L506.0400, L100.0100 ####[facility] [address] [place], [address] Laboratory - Microbiology an d Antimicrobial susceptibilityOrdered By: Ashley Mullen on 03-11-2025 HBV surface Ag Ql (S) Non-Reactive Nonreactive [facility] Comment on above: Reactive: Presumptiv e evidence of HBV. Repeatedly reactive samples must be confirmed using a neutralization test ([employer] HBsAg Confirmatory Test)Non-Reactive: HBsAg not detected; does not exclude the possibility of exposure to HBV MCV (mean corpuscular volume ) determinationOrdered By: Ashley Mullen on 03-11-2025 MCV (RBC) [Entitic vol] 84.7 fL 81-99 [facility] Mean corpuscular hemoglobin (MCH) determinationOrdered By: Ashley Mullen on 03-11-2025 MCH (RBC) [Entitic mass] 30.0 pg 27.0-32.0 [facility] Mean corpuscular hemoglobin concentration (MCHC) determinationOrdered By: Ashley Mullen on 03-11-2025 MCHC (RBC) [Mass/Vol] 35.4 g/dL 32-36 [facility] Mean platelet volume determi nationOrdered By: Ashley Mullen on 03-11-2025 Platelet mean volume (Bld) [Entitic vol] 10.0 fL 6.2-12.0 [facility] Monocyte percentageOrdered B y: Ashley Mullen on 03-11-2025 Monocytes/100 WBC (Bld) 6.4 % 0-10 [facility] NATERAon 03-11-2025 NATURA SEE SCANNED REPORT Normal [facility] Comment on above: Order Comment: Comme nts: NIPT With Gender Performed By: #### L 509.4006, L900.0098, L3410.9992, L3890.6301, BTS, L3890.6006, L3890.6102, L501.9520, L509.8002, L501.9985, L506.0400, L100.0100 #### [facility] [address] [place], [place], [id number] Neutrophil percentageOrdered By: Ashley Mullen on 03-11-2025 Neutrophils/100 WBC (Bld) 70.8 % High 47-70 [facility] No Panel InformationOrdered By: Ashley Mullen on 03-11-2025 HIV (1&2) Antibody Non-Reactive Nonreactive [facility] Comment on above: Non-ReactiveReactive Repeatedly reactive samples must be confirmed according to CDC recommended confirmatory algorithms. The subresults for either HIVAG or AHIV can be used as an aid in the selection of the confirmation algorithm for reactive samples.Send out specimens with Reactive results to [facility] for confirmation.Order the HIV antibody detection and differentiation: #[id number] Nucleated red blood cell per centageOrdered By: Ashley Mullen on 03-11-2025 Nucleated RBC/100 WBC (Bld) [Ratio] 0 % 0-5 [facility] Platelet countOrdered By: Soni Mullen on 03-11-2025 Platelets (Bld) [#/Vol] 227 10*3/uL 150-450 [facility] RBC Auto (Bld) [#/Vol]Ordere d By: Ashley Mullen on 03-11-2025 RBC (Bld) [#/Vol] 4.64 10*6/uL 4.2-5.4 [facility] Syphilis Antibodieson 2024 Syphilis Abs Non-Reactive Normal Nonreactive [facility] Comment on above: Performed By: #### L 509.4006, L900.0098, L3410.9992, L3890.6301, BTS, L3890.6006, L3890.6102, L501.9520, L509.8002, L501.9985, L506.0400, L100.0100 #### [facility] [address] [place], [address] T4 Free Directon 03-11-2025 T4 FREE DIRECT 0.90 ng/dL Normal 0.76-1.46 [facility] Comment on above: Order Comment: NIPT With Gender Performed By: #### L 509.4006, L900.0098, L3410.9992, L3890.6301, BTS, L3890.6006, L3890.6102, L501.9520, L509.8002, L501.9985, L506.0400, L100.0100 ####[facility] [address] [place], [address] T4 freeOrdered By: Ashley watt on 03-11-2025 Free T4 [Mass/Vol] 0.90 ng/dL 0.76-1.46 [facility] TSH DL <= 0.005 mIU/L QnOrde red By: Ashley Mullen on 03-11-2025 TSH Qn 2.320 uIU/mL 0.300-4.200 [facility] Thyroid Stim Hormone (TSH)on 03-11-2025 TSH 2.320 uIU/mL Normal 0.300-4.200 [facility] Comment on above: Performed By: #### L 509.4006, L900.0098, L3410.9992, L3890.6301, BTS, L3890.6006, L3890.6102, L501.9520, L509.8002, L501.9985, L506.0400, L100.0100 ####[facility] [address] [place], [address] Type AND Screenon 03-11-2025 Ab SCREEN GEL Negative Normal [facility] Comment on above: Order Comment: PN Performed By: #### L 509.4006, L900.0098, L3410.9992, L3890.6301, BTS, L3890.6006, L3890.6102, L501.9520, L509.8002, L501.9985, L506.0400, L100.0100 #### [facility] [address] [place], [address] White blood cell (WBC) count Ordered By: Ashley Mullen on 03-11-2025 WBC (Bld) [#/Vol] 11.1 10*3/uL High 4.4-11.0 [facility] Urine Cultureon 03-01-2025 URC Mixed Gram Positive Organisms [place] Count >100,000 [facility] Mixed contaminants. Submit a new specimen if indicated. Normal [facility] Comment on above: Performed By: #### L 700.8000 #### [facility] [address] [place], [place], [address] Urine cultureOrdered By: Ramez Mullen on 02-27-2025 Bacteria identified Cx Nom (U) Positive Abnormal [facility] Quick Sketch Artist Office Visit Reporton 02-26-2025 Quick Sketch Artist Office Visit Report [facility], [address] [place] [address] OFFICE VISIT Date of Service: 02/26/25 MR#: [id number] Acct: [id number] Name: SKYE BIRSCOE Rep #: [id number] : 1995 Provider: Dr. Ashley roberts MD Age/Sex: 29/F [place] [facility] [place]: Signed Intake Vital Signs 02/02/25 14:38 02/16/25 16:00 02/26/25 13:08 02/26/25 13:34 Height 5 ft 5 in 5 ft 5 in 5 ft 5 in Weight: 221 lb BP 136/82 H Intake Visit Reasons: *EST* NOB ALLA 4/1 *TWINS Event Promoter Required: No Is patient in pain?: No Allergies tetracycline Allergy (Mild, Verified 02/26/25 13:15) Hives Medications ???Medication ???Instructions ???Recorded ???Confirmed ???Type multivit-min no.71-iron fum 28 cap PO 02/18/25 History mg-folate no.1 1 mg-dha 300 mg capsule (PNV-[place]) Last Menstrual Period: 08/25/21 Zika: Zika virus screening: Negative : No PFSH PFSH Medical History Seasonal allergies Ovarian cyst Active labor at term Infertility Thyroid disorder Superficial varicosities Macrosomia Obesity affecting Supervision of normal first Anxiety Surgical History Delivery by section Family History Father Diabetes CAD (coronary artery disease) Hypertension Grandfather Kidney disease Paternal Cancer Maternal- skin Parkinsons disease Paternal Mother Cancer skin Social History adopted: No household members: spouse and children housing: house number of children: 1 service: No current occupational status: employed current occupation: [employer] current occupational exposures/hazards: No pets and animals: Yes (avoid litter box) pets and animals: cat(s) and dog(s) history of recent travel: No sexually active: Yes Smoking Status: Never smoker alcohol intake: current alcohol intake frequency: a few times a month details: not while substance use type: does not use well-balanced diet: daily or most days caffeine: Yes Type: carbonated beverages Number of servings: 1 eating out: 1-3 times/week during the past year weight has: decreased > 10 lbs what type of physical activity do you participate in: weight training frequency: 5-6 times per week duration: 15-30 minutes/day armando/amish: Zoroastrianism seatbelt use: always do you feel safe at home: Yes additional social history: Spouse-Melina Johnson History 3 Elective abortions Hx Para 1 Spontaneous abortions 1 Hx # Term Pregnancies Ectopic pregnancies Hx # Pregnancies Multiple births # of living children 1 Past Pregnancies Del. Date Name GA/Weeks Outcome Route Bth Weight Infant Gen Labor Lgth Anesthesia Del Locatn Provider FOB 05/21/22 [place] 38 live - full term 9#6oz Male spinal [facility] Je nnifer Radha Kimball 08/31/24 6 spontaneous Delivery Date: 05/21/22 Last Updated by: Tiesha Dominguez primary section for macrosomia HPI *EST* NOB ALAL 10/06 *TWINS Details: SKYE BRISCOE is a 29 year old who presents for New OB visit. OB Visit ALLA Calculator Estimated Delivery Date Method Current WG Current Estimate 10/06/25 Ultrasound #2 8w 2d Other Estimates 10/01/25 Ultrasound #1 9w 0d # 2 Comments: HIV: Urine Culture: Sequential Screen: NIPT Screen: Estimated Due Date: 10/06/25 Expected Delivery Route/Plan RLTCS Specific Issue/Plans Covid status: [] Flu vaccine: [] Tdap vaccine: [] Rhogam: [] LARC form signed: [] Problem list reviewed and updated with the most current plan of care details and appropriate orders placed. Relevant counseling for the gestational age provided. Continue routine care and follow up unless otherwise noted in visit notes/problem list details Initial Weight: Not Recorded Date -???-???-???-???-???-?? ?-???-???-???-???-???-? ??- EGA Weight BP Urine Prot -???-???-???-???-???-?? ?-???-???-???-???-???-? ??- Glucose FHR FuHt Pres Dilation -???-???-???-???-???-?? ?-???-???-???-???-???-? ??- Effaced St Visit Note 02/26/25 -???-???-???-???-???-?? ?-???-???-???-???-???-? ??- 8w 2d 221 lb 136/82 -???-???-???-???-???-?? ?-???-???-???-???-???-? ??- A 175 -???-???-???-???-???-?? ?-???-???-???-???-???-? ??- B 175 A -???-???-???-???-???-?? ?-???-???-???-???-???-? ??- B -???-???-???-???-???-?? ?-???-???-???-???-???-? ??- A -???-???-???-???-???-?? ?-???-???-???-???-???-? ??- B A SM- CRl cons with ea ch other -???-???-???-???-???-?? ?-???-???-???-???-???-? ??- B Menstrual History (more content not included)... Normal [facility] Urine cultureOrdered By: Ramez Mullen on 02-26-2025 Bacteria identified Cx Nom (U) Positive Abnormal [facility] Transvaginal w/Preg USon Transvaginal w/Preg [facility] Services [address] [place] [address] Transvaginal w/Preg US MR#: [id number] Acct: [id number] Name: SKYE BRISCOE Rep #: [id number] : 1995 F 29 From: Bryan smith MD PCP: Dr. Stacey Santacruz MD Status: [facility] CLI Study: Transvaginal w/Preg US Date of Exam: 02/12/25 Exam# [id number] Ordering Dr: Berna Keane CNM PROCEDURE: TRANSVAGINAL W/PREG US 02/12/2025 REASON FOR EXAM: EARLY DATING US TECHNIQUE: TRANSVAGINAL W/PREG US COMPARISON: None FINDINGS: Comments: LMP: Not known Number of Gestational Sacs: 2 Number of Fetuses: 2 Chorionicity and Amnionicity: Dichorionic Ovaries / Adnexa: Both maternal ovaries are visualized and unremarkable. Uterine Abnormalities: Maternal uterus is unremarkable. ----- FETUS A: Gestational Sac Shape: Normal Heart Rate: 116 beats per minute (average) Yolk Sac: Present and unremarkable. Placenta: Presently not well-visualized. Amniotic Fluid Volume: Subjectively normal for gestational age. DIMENSIONS (A): Parameter Measurement / EGA Virgil Rump Length: 3 mm/6 weeks and 1 day Gestational Sac: 1.4 cm/6 weeks and 2 days Yolk Sac: 4 mm/ ESTIMATED GESTATIONAL AGE (A): By Ultrasound: 6 weeks and 2 days ESTIMATED DATE OF DELIVERY (A): By Ultrasound: October 06, 2025 ----- FETUS B: Gestational Sac Shape: Normal Heart Rate: 121 beats per minute (average) Yolk Sac: Present and unremarkable. Placenta: Presently not well-visualized. Amniotic Fluid Volume: Subjectively normal for gestational age. DIMENSIONS (B): Parameter Measurement / EGA Virgil Rump Length: 3 mm/6 weeks and 1 day Gestational Sac: 1.7 cm/6 weeks and 4 days Yolk Sac: 3 mm/6 weeks and 1 day ESTIMATED GESTATIONAL AGE (B): By Ultrasound: 6 weeks and 3 days ESTIMATED DATE OF DELIVERY (B): By Ultrasound: October 05, 2025 US/Transvaginal w/Preg US IMPRESSION: Twin gestation as described. Reading Location: [facility]- CC: FLORENCE Keane; Dr. Stacey Santacruz MD Pressure Sealer And Tester: Signed Normal [facility] Quick Sketch Artist Office Visit Reporton 02-02-2025 Quick Sketch Artist Office Visit Report [facility] [address], [address] [place] [address] OFFICE VISIT Date of Service: 02/02/25 MR#: [id number] Acct: [id number] Name: SKYE BRISCOE Rep #: [id number] : 1995 Provider: Dr. Ashley roberts MD Age/Sex: 29/F Location[place] [facility] [place] Status: Signed Intake Vital Signs 10/01/24 06:32 02/02/25 13:54 02/02/25 14:38 Height 5 ft 5 in 5 ft 5 in 5 ft 5 in Weight: 219 lb 6 oz BMI 36.5 BP 150/89 H Intake Visit Reasons: Early OB bleeding, US next week, hx miscarriage Event Promoter Required: No Is patient in pain?: Yes (right pelvic discomfort) Allergies tetracycline Allergy (Mild, Verified 02/02/25 14:41) Hives Medications ???Medication ???Instructions ???Recorded ???Confirmed ???Type obzmhdwo-cfn-Dh-FA 1 mg 1 tab PO DAILY 09/03/24 02/02/25 H istory tablet Is last menstrual period known: No Post menopausal: No Patient : Yes : No [facility] Medical History (Updated 02/02/25 @ 15:[address] Ashley Mullen MD) Ovarian cyst Active labor at term Infertility Thyroid disorder Superficial varicosities Macrosomia Obesity affecting Supervision of normal first Anxiety Surgical History (Updated 02/02/25 @ 15:[address] Ashley Mullen MD) Delivery by section Family History Father Diabetes CAD (coronary artery disease) Hypertension Social History (Updated 02/02/25 @ 14:42 by Destinee Loving) adopted: No household members: spouse current occupational status: employed current occupation: [employer] pets and animals: Yes (avoid litter box) pets and animals: cat(s), dog(s) and fish Smoking Status: Never smoker alcohol intake: current alcohol intake frequency: a few times a month details: not while substance use type: does not use do you feel safe at home: Yes additional social history: Spouse-Jigar HPI Early OB bleeding, US next week, hx miscarriage Details: SKYE BRISCOE is a 29 year old who presents for early spotting brown some crmaping no discharge odor fevers. unsure of LMP had positive test two weeks ago quant went form 9 to 1200. US shows 10mm GS with yolk sac and quesitonable second sac 6mm no yolk sac small 3mm subchorionic hematoma seen nl adnexa normal ovaries no free fluid History 3 Elective abortions Hx Para 1 Spontaneous abortions 1 Hx # Term Pregnancies Ectopic pregnancies Hx # Pregnancies Multiple births # of living children 1 Past Pregnancies Del. Date Name GA/Weeks Outcome [facility] [place] 38 live - full term Male spinal [facility] Je coy Anthony 08/31/24 6 spontaneous Delivery Date: 05/21/22 Last Updated by: Tiesha Dominguez primary section for macrosomia ROS Const Constitutional: Reports as per HPI; Denies fever(s) ENT ENT: Reports system reviewed and no additional complaints, except as documented Cardio Card: Reports system reviewed and no additional complaints, except as documented Resp Resp: Reports system reviewed and no additional complaints, except as documented GI GI: Reports as per HPI : Reports as per HPI Musc Musc: Reports system reviewed and no additional complaints, except as documented Skin Skin/Breast: Reports system reviewed and no additional complaints, except as documented Neuro Neuro: Reports system reviewed and no additional complaints, except as documented Endo Endo: Reports system reviewed and no additional complaints, except as documented Exam Const General: healthy appearing, comfortable and no acute distress [facility] Head: normal to inspection and normocephalic Neck Neck: no lymphadenopathy noted Thyroid: thyroid normal Chest Chest palpation inspection: normal inspection of the chest Resp Effort Inspection: normal respiratory effort Cardio Rate: regular rate Rhythm: regular rhythm GI Inspection: normal to inspection Palpation: soft and nontender External Female Exam: normal external appearance Speculum Exam - Vagina: normal appearance of the vagina and vaginal bleeding Bimanual Exam- Vagina Uterus: uterine shape normal and non-tender OB/External Speculum: vaginal bleeding Speculum Exam: vaginal bleeding Skin General: no rashes or lesions noted Neuro General: no focal motor deficits Extrem General: normal to inspection and no pedal edema Psych Appearance: grossly normal Coding Level of Care Code Off vis,est,level 3 Diagnoses Threatened O20.0 Z34.90 Assessment and Plan Assessment and Plan (1) Threatened (more content not included)... Normal [facility] Serum human chorionic gonado tropin detection for pregnancyOrdered By: Stacey Santacruz on 01-28-2025 HCG ( test) Ql 1250 mIU/mL High <9 [facility] Comment on above: Gestational Age0.2-1 Week: 5-50 mIU/mL1-2 Weeks: 50-500 mIU/mL2-3 Weeks: 100-5000 mIU/mL3-4 Weeks: 500-10,000 mIU/mL4-5 Weeks:1000-50,000 mIU/mL5-6 Weeks: 10,000-100,000 mIU/mL6-8 Weeks: 15,000-200,000 mIU/mL2-3 Months:10,000-100,000 mIU/mL hCG Titer Quant., Serumon HCG QUANT. 1250 mIU/mL High <9 non-preg [facility] Comment on above: Order Comment: Order Date: 01/26/25Order Info: 2118-8 - PREGS Result Comment: Gest ational Age 0.2-1 Week: 5-50 mIU/mL 1-2 Weeks: 50-500 mIU/mL 2-3 Weeks: 100-5000 mIU/mL 3-4 Weeks: 500-10,000 mIU/mL 4-5 Weeks:1000-50,000 mIU/mL 5-6 Weeks: 10,000-100,000 mIU/mL 6-8 Weeks: 15,000-200,000 mIU/mL 2-3 Months:10,000-100,000 mIU/mL Performed By: #### L 700.8000 ####[facility] [address] [place], [address] CNOVon 01-26-2025 CNOV Office Visit ([facility]) SKYE BRISCOE ([id number]) 1995 F Date Time Provider Department 01/26/25 4:00 PM JONATHAN WHELAN During your visit today, we recorded the following information about you: Temperature Pulse Respiration Blood pressure 99.2 degrees 80/minute 18/minute 122/76 Weight 99.7 kg Jonathan Whelan PA 01/26/2025 4:21 PM Signed [facility] Subjective Skye Briscoe is a 29 year old female. Patient presents with: Sore Throat: ST, runny nose and cough x 1 day HPI 29-year-old female presents for sore throat, runny nose and cough x 1 day. No fevers. No chest pain or shortness of breath. She is 4 weeks . She has not taken anything for symptoms. No other complaint. PAST MEDICAL HISTORY Diagnosis Date Finger fracture Kidney infection PAST SURGICAL HISTORY Procedure Laterality Date NONE ALLERGIES Eye Drops [Tetrahydrozoline] MEDICATIONS vits 7/iron/folic/dha ( VIT 5-PKJS-EGLPA-DHA ORAL) Take by mouth. FAMILY HISTORY Problem Relation Age of Onset No Known Problems Mother Diabetes Father No Known Problems Sister No Known Problems Brother Diabetes Maternal Grandmother Cancer Maternal Grandfather Skin No Known Problems Paternal Grandmother Diabetes Paternal Grandfather No Known Problems Brother Social History Tobacco Use Smoking status: Never Smokeless tobacco: Never Substance Use Topics Alcohol use: Never Drug use: Never Review of Systems Constitutional: Negative for chills and fever. HENT: Positive for congestion and sore throat. Negative for ear pain. Respiratory: Positive for cough. Negative for shortness of breath. Cardiovascular: Negative for chest pain. Gastrointestinal: Negative for diarrhea and vomiting. Objective BP 122/76 Pulse 80 Temp 37.3 ?C (99.2 ?F) (Tympanic) Resp 18 Wt 99.7 kg (219 lb 12.8 oz) LMP 07/20/2024 (Approximate) SpO2 99% BMI 36.02 kg/m? Physical Exam Vitals and nursing note reviewed. Constitutional: General: She is not in acute distress. Appearance: Normal appearance. She is not toxic-appearing. HENT: Right Ear: Tympanic membrane and ear canal normal. Left Ear: Tympanic membrane and ear canal normal. Nose: Nose normal. Mouth/Throat: Mouth: Mucous membranes are moist. Pharynx: Uvula midline. Posterior oropharyngeal erythema present. No oropharyngeal exudate. Tonsils: 1+ on the right. 1+ on the left. Eyes: Conjunctiva/sclera: Conjunctivae normal. Cardiovascular: Rate and Rhythm: Normal rate and regular rhythm. Pulmonary: Effort: Pulmonary effort is normal. Breath sounds: Normal breath sounds. Skin: General: Skin is warm and dry. Neurological: Mental Status: She is alert. {ASSESSMENT/PLAN: 1. URI, acute - ICD9: 465.9, ICD10: J06.9 (primary diagnosis) - Discussed viral etiology and rationale for treatment. - Group A strep molecular testing negative - Symptomatic treatment with prn analgesia - Supportive care with fluids and rest - Declines viral swab 2. Sore throat - ICD9: 462, ICD10: J02.9 - suspect viral - Group A strep molecular testing negative - Discussed supportive care treatment with fluids, rest and analgesia. - Given a list of safe medications for symptoms. - STREP A MOLECULAR (POC) Diagnosis and treatment plan were discussed and questions were answered to the patient's satisfaction. Pt acknowledged understanding of concepts and follow up plan. Specific signs and symptoms that would indicate the need for higher level of care were discussed in detail warranting prompt ER evaluation. SARAH Cuellar Disposition The patient was discharged. Procedures Allergies As of Date: 01/26/2025 Noted Allergy Reaction EYE DROPS (TETRAHYDROZOLINE) 03/17/2024 2 - Rash Date Reviewed: 01/26/2025 Reviewed by: Barbara Gonzalez LPN - Fully Assessed Reason for Visit: Sore Throat [200] Cmt: ST, runny nose and cough x 1 day Primary Visit Diagnosis:URI, acute [J06.9] Other Visit Diagnosis:Sore throat [J02.9] Order(s):STREP A MOLECULAR (POC) [0780361] Order #: [id number]. #:[id number] Prescriptions as of 01/26/2025 - vits 7/iron/folic/dha ( VIT 0-SGRZ-JGIHY-DHA ORAL) Take by mouth. Problem List As Of Date: 01/26/2025 (None) Encounter Status:Closed by JONATHAN WHELAN on 01/26/25 Normal [facility] STREP A MOLECULAR (POC)on Procedural Control Valid [facility] Strep A (POCT) Negative Negative [facility] Serum human chorionic gonado tropin detection for pregnancyOrdered By: Stacey Santacruz on 01-22-2025 HCG ( test) Ql 97 mIU/mL High <9 [facility] Comment on above: Gestational Age0.2-1 Week: 5-50 mIU/mL1-2 Weeks: 50-500 mIU/mL2-3 Weeks: 100-5000 mIU/mL3-4 Weeks: 500-10,000 mIU/mL4-5 Weeks:1000-50,000 mIU/mL5-6 Weeks: 10,000-100,000 mIU/mL6-8 Weeks: 15,000-200,000 mIU/mL2-3 Months:10,000-100,000 mIU/mL hCG Titer Quant., Serumon HCG QUANT. 97 mIU/mL High <9 non-preg [facility] Comment on above: Result Comment: Gest ational Age 0.2-1 Week: 5-50 mIU/mL 1-2 Weeks: 50-500 mIU/mL 2-3 Weeks: 100-5000 mIU/mL 3-4 Weeks: 500-10,000 mIU/mL 4-5 Weeks:1000-50,000 mIU/mL 5-6 Weeks: 10,000-100,000 mIU/mL 6-8 Weeks: 15,000-200,000 mIU/mL 2-3 Months:10,000-100,000 mIU/mL Performed By: #### L 700.8000 ####[facility] [address] [place], [place], [id number] BACTERIAL VAGINOSIS NAATon 0 01-14-2025 Interpretation and review of laboratory results Normal [facility] Lactobacillus crispatus+gasseri+jense junaid + Gardnerella vaginalis + Atopobium vaginae rRNA GERARD+probe Ql (Vag fld) Not detected Not detected [facility] GUANAKITO/TRICHOMONAS NAATon 0 01-14-2025 C. glabrata RNA GERARD+probe Ql (Vag fld) Not detected Not detected [facility] Guanakito sp DNA GERARD+probe Ql (Vag fld) Detected Abnormal Not detected [facility] Comment on above: The Guanakito species group target includes C. albicans, C. tropicalis, C. parapsilosis, and C. dubliniensis. Interpretation and review of laboratory results Abnormal [facility] T. vaginalis DNA GERARD+probe Ql (Unsp spec) Not detected Not detected [facility] BACTERIAL VAGINOSIS NAATon 0 01-13-2025 Lactobacillus crispatus+gasseri+jense junaid + Gardnerella vaginalis + Atopobium vaginae rRNA GERARD+probe Ql (Vag fld) Not detected Normal Not detected [facility] Comment on above: Order Comment: Speci men Type: SWABOrdering Facility: [facility] Address: [address] [place] [address] Performed By: #### C VTV, BVAMP ####[facility]CL[facility] [id number] [place] [address] [place] GUANAKITO/TRICHOMONAS NAATon 0 01-13-2025 C. glabrata RNA GERARD+probe Ql (Vag fld) Not detected Normal Not detected [facility] Comment on above: Order Comment: Speci men Type: SWABOrdering Facility: [facility] Address: [address] [place] [address] Performed By: #### C VTV, BVAMP ####[facility] [id number] [place] [address] [place] Guanakito sp DNA GERARD+probe Ql (Vag fld) Detected Abnormal Not detected [facility] Comment on above: Order Comment: Speci men Type: SWABOrdering Facility: [facility] Address: [address] [place] [address] Result Comment: The Guanakito species group target includes C. albicans, C. tropicalis, C. parapsilosis, and C. dubliniensis. Performed By: #### C VTV, BVAMP ####[facility] [id number] [place] [address] [place] T. vaginalis DNA GERARD+probe Ql (Unsp spec) Not detected Normal Not detected [facility] Comment on above: Order Comment: Speci men Type: SWABOrdering Facility: [facility] Address: [address] [place] [address] Performed By: #### C VTV, BVAMP ####[facility] [id number] [facility] [id number] [place] [address] [facility] CNOVon 01-13-2025 CNOV Office Visit (WOUCA) SKYE BRISOCE ([id number]) 1995 F Date Time Provider Department 01/13/25 3:15 PM TORO SAUL WOU[facility] During your visit today, we recorded the following information about you: Temperature Pulse Respiration Blood pressure 98.5 degrees 64/minute 16/minute 122/82 Weight 100.8 kg Toro Saul MD 01/13/2025 3:47 PM Signed [facility] Subjective Skye Briscoe is a 29 year old female. Patient presents with: Vaginal Problem: Vaginal discharge and possible yeast infection x 1 day Patient presents with vaginal symptoms since last night. She has had some discharge with vaginal irritation. It reminds her when she had a yeast infection during . She does does note dysuria and some frequency. She notes no change in expected baseline abdominal or back pain. Denies fever. Denies history of UTI. Denies concern for STI. Vaginal Problem Review of Systems Genitourinary: Positive for vaginal discharge. Objective BP 122/82 Pulse 64 Temp 36.9 ?C (98.5 ?F) (Tympanic) Resp 16 Wt 100.8 kg (222 lb 3.6 oz) LMP 07/20/2024 (Approximate) SpO2 99% BMI 36.42 kg/m? Physical Exam Constitutional: General: She is not in acute distress. HENT: Mouth/Throat: Mouth: Mucous membranes are moist. Eyes: Extraocular Movements: Extraocular movements intact. Conjunctiva/sclera: Conjunctivae normal. Pupils: Pupils are equal, round, and reactive to light. Cardiovascular: Rate and Rhythm: Normal rate and regular rhythm. Heart sounds: No murmur heard. Pulmonary: Effort: No respiratory distress. Breath sounds: No wheezing, rhonchi or rales. Abdominal: Palpations: There is no mass. Tenderness: There is no abdominal tenderness (Suprapubic discomfort with palpation). There is no right CVA tenderness or left CVA tenderness. Musculoskeletal: Cervical back: Neck supple. Neurological: Mental Status: She is alert. {ASSESSMENT/PLAN: 1. Vaginal discharge - ICD9: 623.5, ICD10: N89.8 - GUANAKITO/TRICHOMONAS NAAT - BACTERIAL VAGINOSIS NAAT Patient will hop picker [id number] Monistat. She may continue this if positive for Guanakito. Declines STI or urine testing. Toro Saul MD Differential Diagnoses - vaginitis is more likely for the following reason(s): suggested by HANDP - UTI is less likely for the following reason(s): Presence of discharge and external irritation Procedures Allergies As of Date: 01/13/2025 Noted Allergy Reaction EYE DROPS (TETRAHYDROZOLINE) 03/17/2024 2 - Rash Date Reviewed: 08/21/2024 Reviewed by: Becky Sharma LPN - Fully Assessed Reason for Visit: Vaginal Problem [117] Cmt: Vaginal discharge and possible yeast infection x 1 day Primary Visit Diagnosis:Vaginal discharge [N89.8] Order(s):GUANAKITO/TRICHO MONAS NAAT [SQCVTV] Order #: [id number]. #:[id number] BACTERIAL VAGINOSIS NAAT [SQBVAMP] Order #: [id number]. #:[id number] Problem List As Of Date: 01/13/2025 (None) Medications Discontinued During This Encounter Prescriptions - PNV no.95/ferrous fum/folic ac ( ORAL) (Discontinued) Reported on 01/13/2025 - norethindrone (AYGESTIN) 5 mg tablet (Discontinued) Reported on 08/21/2024 - levothyroxine (SYNTHROID) 100 mcg tablet (Discontinued) Reported on 01/13/2025 - benzonatate (TESSALON PERLES) 100 mg capsule (Discontinued) Reported on 08/21/2024 Level of Service: OFFICE/OUTPATIENT ESTABLISHED MOD MDM 30 MIN [26575] Encounter Status:Closed by TORO SAUL on 01/13/25 Normal [facility] TSH DL <= 0.005 mIU/L QnOrde red By: Stacey Santacruz on 12-04-2024 TSH Qn 2.070 uIU/mL 0.300-4.200 [facility] Thyroid Stim Hormone (TSH)on 12-04-2024 TSH 2.070 uIU/mL Normal 0.300-4.200 [facility] Comment on above: Order Comment: Order Date: 12/04/24Order Info: [id number] - TSH Performed By: #### L 700.8000 #### [facility] [address] [place], [place], [id number] Urine Cultureon 10-04-2024 URC Escherichia coli Bristow Count >100,000 Escherichia coli: REACTION Ampicillin Islt MARY >=32 Ampicillin+Sulbac Islt MARY 16 I Cefepime Islt MARY <=0.12 S cefTRIAXone Islt MARY <=0.25 S Ciprofloxacin Islt MARY <=0.06 S B-Lactamase Extended Susc Islt NEG Gentamicin Islt MARY <=1 S levoFLOXacin Islt MARY <=0.12 S Meropenem Islt MARY <=0.25 S Nitrofurantoin Islt MARY <=16 S Pip+Tazo Islt MARY <=4 S TMP SMX Islt MARY <=20 S Normal [facility] Comment on above: Performed By: #### L 700.8000 #### [facility] [address] [place], [address] Urine Cultureon 10-02-2024 URC Presumptive E. coli Bristow Count 80,000-100,000 Presumptive E. coli: REACTION Ampicillin Islt MARY >=32 Ampicillin+Sulbac Islt MARY 16 I Cefepime Islt MARY <=0.12 S cefTRIAXone Islt MARY <=0.25 S Ciprofloxacin Islt MARY <=0.06 S B-Lactamase Extended Susc Islt NEG Gentamicin Islt MARY <=1 S levoFLOXacin Islt MARY <=0.12 S Meropenem Islt MARY <=0.25 S Nitrofurantoin Islt MARY <=16 S Pip+Tazo Islt MARY <=4 S TMP SMX Islt MARY <=20 S Normal [facility] Comment on above: Performed By: #### L 509.4006, L900.0098, L3410.9992, L3890.6301, BTS, L3890.6006, L3890.6102, L501.9520, L509.8002, L501.9985, L506.0400, L100.0100 #### [facility] [address] [place], [address] Urine cultureOrdered By: Christiano Lagos on 10-02-2024 Bacteria identified Cx Nom (U) Escherichia coli Abnormal [facility] Abdomen/Pelvis W IV Cont ONL Yon 10-01-2024 Abdomen/Pelvis W IV Cont ONLY [facility] [address] [place], [place] [address] Abdomen/Pelvis W IV Cont ONLY MR#: [id number] Acct: [id number] Name: SKYE BRISCOE Rep #: [id number] : 1995 F 29 From: Anupam Benton MD PCP: Dr. Stacey Santacruz MD Status: REG ER Study: Abdomen/Pelvis W IV Cont ONLY Date of Exam: Exam# [id number] Ordering Dr: Khadar Abrams DO EXAM: CT abdomen and pelvis with IV contrast only CLINICAL HISTORY: Abdominal pain COMPARISON: CT abdomen and pelvis 09/24/2024 TECHNIQUE: CT of the abdomen and pelvis with contrast with coronal and sagittal reformatted images. 98 cc Isovue-300 FINDINGS: The lung bases are clear. The liver, contracted gallbladder, adrenal glands, pancreas and spleen appear within limits. Patchy appearance of the left renal nephrogram with associated perinephric and peripelvic stranding, edema. Mild patchy appearance to the right renal nephrogram concerning for pyelonephritis, clinically correlate. No focal abscess identified. Small nonobstructing stone upper pole right kidney and focal cortical scarring again noted. The renal arteries and renal veins appear to contain contrast as expected. No hydronephrosis. No evidence of ureteral or bladder stone identified. Mostly collapsed bladder appears within limits. No bowel dilation or free air. Normal caliber appendix without secondary signs. Abdominal aorta appears within limits. Shotty appearing retroperitoneal nonenlarged by CT criteria lymph nodes. The uterus and ovaries appear within limits with small follicle noted on the right. No free fluid seen. 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 Bilateral asymmetric left more than right sclerotic change adjacent to the SI joints for example axial 100 again noted suggesting sacroiliitis. CT/Abdomen/Pelvis W IV Cont ONLY IMPRESSION: Findings are most concerning/consistent with left greater than right pyelonephritis as above, clinically correlate. 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 Bilateral asymmetric left more than right sclerotic change adjacent to the SI joints for example axial 100 again noted suggesting sacroiliitis. Reading Location: [facility] CC: Dr. Stacey Santacruz MD; Dr. 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 And Tester: Signed Normal [facility] Absolute lymphocyte countOrd ered By: Khadar Abrams on 10-01-2024 Lymphocytes Auto (Unsp spec) [#/Vol] 1.62 10*3/uL 0.83-4.51 [facility] Absolute neutrophil countOrd ered By: Khadar Abrams on 10-01-2024 Neutrophils (Bld) [#/Vol] 10.9 10*3/uL High 2.0-7.7 [facility] Anion gap in Serum or Plasma Ordered By: Khadar Abrams on 10-01-2024 Anion gap [Moles/Vol] 11 mmol/L 5-15 [facility] Automated lymphocyte count a s percentage of total leukocytesOrdered By: Khadar Abrams on 10-01-2024 Lymphocytes/100 WBC Auto (Unsp spec) 11.3 % Low 19-41 [facility] BUN/creatinine ratioOrdered By: Khadar Abrams on 10-01-2024 Urea nitrogen/Creatinine [Mass ratio] 12.6 mg/mg 10-20 [facility] Basic Metabolic Profile (BMP )on 10-01-2024 BUN/CRE 12.6 RATIO Normal 10-20 [facility] Comment on above: Performed By: #### L 509.4006, L900.0098, L3410.9992, L3890.6301, BTS, L3890.6006, L3890.6102, L501.9520, L509.8002, L501.9985, L506.0400, L100.0100 #### [facility] [address] [place], [place], [id number] ECRCL 134.29 ml/min Normal 50-250 [facility] Comment on above: Performed By: #### L 509.4006, L900.0098, L3410.9992, L3890.6301, BTS, L3890.6006, L3890.6102, L501.9520, L509.8002, L501.9985, L506.0400, L100.0100 #### [facility] [address] [place], [place], [id number] GAP 11 Normal -15 [facility] Comment on above: Performed By: #### L 509.4006, L900.0098, L3410.9992, L3890.6301, BTS, L3890.6006, L3890.6102, L501.9520, L509.8002, L501.9985, L506.0400, L100.0100 #### [facility] [address] [place], [place], [id number] Basophil percentageOrdered B y: Khadar Abrams on 10-01-2024 Basophils/100 WBC (Bld) 0.2 % 0-1 [facility] Beta HCG ( test) Ql Ordered By: Khadar Abrams on 10-01-2024 Serum Test, Qualitative Negative [facility] Bilirubin Test strip Ql (U)O rdered By: Khadar Abrams on 10-01-2024 Bilirubin Ql (U) Negative Negative [facility] CBC W/Diff, Automatedon - PLT EST ADEQUATE Normal ADEQ [facility] Comment on above: Performed By: #### L 509.4006, L900.0098, L3410.9992, L3890.6301, BTS, L3890.6006, L3890.6102, L501.9520, L509.8002, L501.9985, L506.0400, L100.0100 #### [facility] [address] [place], [place], [address] Carbon dioxide, total [Moles /volume] in Central venous bloodOrdered By: Khadar Abrams on 10-01-2024 CO2 [Moles/Vol] 23.0 mmol/L Normal 21.0-32.0 [facility] Comment on above: Performed By: #### L 509.4006, L900.0098, L3410.9992, L3890.6301, BTS, L3890.6006, L3890.6102, L501.9520, L509.8002, L501.9985, L506.0400, L100.0100 #### [facility] [address] [place], [place], [id number] Chloride assayOrdered By: Lev Abrams on 10-01-2024 Chloride [Moles/Vol] 103 mmol/L Normal 98-108 [facility] Comment on above: Performed By: #### L 509.4006, L900.0098, L3410.9992, L3890.6301, BTS, L3890.6006, L3890.6102, L501.9520, L509.8002, L501.9985, L506.0400, L100.0100 #### [facility] [address] [place], [place], [address] Emergency Department Summary on 10-01-2024 Emergency Department Summary [facility] Medical Records Department [address] [place] [address] Emergency Department Summary 10/01/24 MR#: [id number] Acct: [id number] Name: SKYE BRISCOE Rep #: [id number] : 1995 29 From: Khadar Abrams DO PCP: Dr. Stacey Santacruz MD Status:DEP ER Location: ED HPI History of Present Illness Chief Complaint: Flank Pain Informant: patient Onset/Context/Timing Onset: Days (2) Context: Gradual Onset Timing: Continuous Quality: Cramping, aching, stabbing Location: Left lower abdomen and left flank Worsened by: Movement Relieved by: Nothing Narrative Narrative: Patient presents with flank pain that has been getting worse over the past 2 days. Patient states it started on her right side but is now more on the left side. Patient describes it as cramping, aching, and stabbing. Patient states it is worse with any movement. The patient admits to some nausea and mild vomiting. Patient denies any hematemesis or coffee-ground emesis. Patient denies any diarrhea, melena, or hematochezia. Patient denies any urinary complaints. Patient also admits to a headache. [facility] Medical History Ovarian cyst Active labor at term Infertility Thyroid disorder Superficial varicosities Macrosomia Obesity affecting Supervision of normal first Anxiety Home Medications ???Medication ???Instructions ???Recorded ???Last Taken ???Type levothyroxine 100 mcg tablet 100 mcg PO DAILY #30 tabs 12/27/23 Unknown Rx (Synthroid) [id number] 1 mg 1 tab PO DAILY 09/03/24 Unknown Hi story tablet hydrocodone-acetaminoph en 5-325mg 1 tab PO Q6H PRN PRN Pain 3 days 09/24/24 Unknown Rx 5mg-325mg #10 TABLETS ondansetron 4 mg disintegrating 4 mg PO Q8H PRN PRN Nausea #10 tab s 10/01/24 Unknown Rx tablet sulfamethoxazole 800 1 tab PO Q12H 14 days #28 tabs Unknown Rx mg-trimethoprim 160 mg tablet (Bactrim DS) Allergy/AdvReac Type Severity Reaction Status Date / Time tetracycline Allergy Mild Hives Verified 10/01/24 06:35 Family History Father Diabetes CAD (coronary artery disease) Hypertension Surgical History Delivery by section Social History adopted: No household members: spouse current occupational status: 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 pets and animals: Yes (avoid litter box) pets and animals: cat(s), dog(s) and fish Smoking Status: Never smoker alcohol intake: current alcohol intake frequency: a few times a month details: not while substance use type: does not use do you feel safe at home: Yes additional social history: Spouse-Jigar ROS ROS ED Constitutional Constitutional ED: Reports fever(s); Denies chills Eyes Eyes: Denies blurry vision or change in vision ENT ENT ED: Reports rhinorrhea; Denies sore throat Cardiovascular Cardiovascular: Denies chest pain or palpitations Respiratory/Chest Respiratory/Chest: Denies cough or dyspnea Gastrointestinal Gastrointestinal: Reports nausea and vomiting Genitourinary Genitourinary ED: Denies dysuria or hematuria Musculoskeletal Musculoskeletal: Reports back pain and neck pain Integumentary Denies abscess or rash Neurologic Neurologic: Reports headache(s); Denies weakness Allergic/Immunologic Allergic/Immunologic ED: Denies mouth swelling or urticaria EXAM Physical Exam Const Vital Signs: 10/01/24 06:32 10/01/24 10:05 10/01/24 10:27 Temperature 101.7 F H 99.0 F 99.0 F Temperature Source Oral Oral Pulse Rate 99 89 81 Respiratory Rate 18 16 16 Blood Pressure 155/74 H 153/116 H 146/99 H Blood Pressure Mean 101 128 114 Pulse Ox 98 99 98 Oxygen Delivery Method Room Air Room Air Positive well nourished and well developed General Appearance ED: well developed and NAD HEENT Reports moist mucous membranes Neck supple and no JVD Resp normal respiratory effort and clear to auscultation bilaterally Cardio regular rate and regular rhythm GI non-distended Palpation: soft and tender LLQ and LUQ; Negative for guarding or rebound tenderness present Extremity normal to inspection Neuro oriented x3, CN's II-XII intact bilaterally and no sensory deficits noted Sensorium / Orientation: alert Motor Exam: strength 5/5 throughout Psych mental status grossly normal Physical Exam Const Vital Signs: 10/01/24 06:32 10/01/24 10:05 10/01/24 10:27 Temperature 101.7 F H 99.0 F 99.0 F Temperature Source Oral Oral Pulse Rate 99 89 81 Respiratory Rate 18 16 16 Blood (more content not included)... Normal [facility] Eosinophil percentageOrdered By: Khadar Abrams on 10-01-2024 Eosinophils/100 WBC (Bld) 0.1 % 0-5 [facility] Epithelial cells.squamous LM Ql (Urine sed)Ordered By: Khadar Abrams on 10-01-2024 Epithelial cells.squamous LM.HPF (Urine sed) [#/Area] 5 /[HPF] 5-10 [facility] Erythrocyte distribution wid th ratioOrdered By: Khadar Abrams on 10-01-2024 Erythrocyte distribution width (RBC) [Ratio] 13.2 % 11.6-14.6 [facility] Erythrocyte distribution wid th standard deviationOrdered By: Khadar Abrams on 10-01-2024 Erythrocyte distribution width (RBC) [Entitic vol] 40.8 fL 35.1-43.9 [facility] Erythrocyte distribution width (RBC) [Ratio] 40.8 fl 35.1-43.9 [facility] Estimation of creatinine shelli aranceOrdered By: Khadar Abrams on 10-01-2024 Estimated Creatinine Clearance Calc 134.29 ml/min 50-250 [facility] GFR/1.73 sq M.predicted adelso g non-blacks MDRD (S/P/Bld) [Vol rate/Area]Ordered By: Khadar Abrams on 10-01-2024 Estimated GFR (MDRD) Non-Af Amer 101 >60 [facility] Comment on above: mL/min/1.73m2 CKD-EP I Creatinine Equation (2020) Glomerular filtration rate ( GFR) estimation/1.73 sq m using serum, plasma, or whole bOrdered By: Khadar Abrams on 10-01-2024 GFR/1.73 sq M.predicted among non-blacks MDRD (S/P/Bld) [Vol rate/Area] 101 mL/min/{1.73_m2} Normal >60 [facility] Comment on above: mL/min/1.73m2 CKD-EP I Creatinine Equation (2020) Result Comment: mL/m in/1.73m2 CKD-EPI Creatinine Equation (2020) Performed By: #### L 509.4006, L900.0098, L3410.9992, L3890.6301, BTS, L3890.6006, L3890.6102, L501.9520, L509.8002, L501.9985, L506.0400, L100.0100 #### [facility] [address] [place], [address] Glucose Ql (U)Ordered By: Lev Abrams on 10-01-2024 Urine Glucose (UA) Normal mg/dl Normal [facility] Hematocrit Auto (Bld) [Volum e fraction]Ordered By: Khadar Abrams on 10-01-2024 Hematocrit (Bld) [Volume fraction] 40.0 % 37-47 [facility] Hemoglobin measurementOrdere d By: hKadar Abrams on 10-01-2024 Hemoglobin (Bld) [Mass/Vol] 13.7 g/dL 12.0-15.0 [facility] Immature granulocytes/100 WB C Auto (Bld)Ordered By: Khadar Abrams on 10-01-2024 Immature granulocytes/100 WBC (Bld) 0.500 % 0.0-0.9 [facility] Comment on above: IG% - Immature Granu locytes (promyelocytes, myelocytes and metamyelocytes) > 1% indicates that a LEFT SHIFT is Present. Ketones Test strip Ql (U)Ord ered By: Khadar Abrams on 10-01-2024 Ketones Ql (U) Negative Negative [facility] Lymphocytes Auto (Unsp spec) [#/Vol]Ordered By: Khadar Abrams on 10-01-2024 Lymphocytes (Bld) [#/Vol] 1.62 10*3/uL 0.83-4.51 [facility] Lymphocytes/100 WBC Auto (Un sp spec)Ordered By: Khadar Abrams on 10-01-2024 Lymphocytes/100 WBC (Bld) 11.3 % Low 19-41 [facility] MCV (mean corpuscular volume ) determinationOrdered By: Khadar Abrams on 10-01-2024 MCV (RBC) [Entitic vol] 83.7 fL 81-99 [facility] Mean corpuscular hemoglobin (MCH) determinationOrdered By: Khadar Abrams on 10-01-2024 MCH (RBC) [Entitic mass] 28.7 pg 27.0-32.0 [facility] Mean corpuscular hemoglobin concentration (MCHC) determinationOrdered By: Khadar Abrams on 10-01-2024 MCHC (RBC) [Mass/Vol] 34.3 g/dL 32-36 [facility] Mean platelet volume determi nationOrdered By: Khadar Abrams on 10-01-2024 Platelet mean volume (Bld) [Entitic vol] 9.6 fL 6.2-12.0 [facility] Microscopic analysis of urin e for red blood cells (RBC)Ordered By: Khadar Abrams on 10-01-2024 Microscopic analysis of urine for red blood cells (RBC) 0-5 SEEN /hpf 0-5 [facility] Urine RBC 0-5 SEEN /hpf 0-5 [facility] Monocyte percentageOrdered B y: Khadar Abrams on 10-01-2024 Monocytes/100 WBC (Bld) 12.0 % High 0-10 [facility] Mucus LM Ql (Urine sed)Order ed By: Khadar Abrams on 10-01-2024 Mucus Ql (Urine sed) 0 SEEN /hpf [facility] Neutrophil percentageOrdered By: Khadar Abrams on 10-01-2024 Neutrophils/100 WBC (Bld) 75.9 % High 47-70 [facility] Nitrite Test strip Ql (U)Ord ered By: Khadar Abrams on 10-01-2024 Nitrite Ql (U) Negative Negative [facility] Nucleated red blood cell per centageOrdered By: Khadar Abrams on 10-01-2024 Nucleated RBC/100 WBC (Bld) [Ratio] 0 % 0-5 [facility] Platelet countOrdered By: Lev Abrams on 10-01-2024 Platelets (Bld) [#/Vol] 217 10*3/uL 150-450 [facility] Platelet estimateOrdered By: Khadar Abrams on 10-01-2024 Platelets LM Ql (Bld) ADEQUATE ADEQ [facility] Platelets LM Ql (Bld)Ordered By: Khadar Abrams on 10-01-2024 Platelet Estimate ADEQUATE ADEQ [facility] Potassium measurement (mass/ volume)Ordered By: Khadar Abrams on 10-01-2024 Potassium (Unsp spec) [Mass/Vol] 3.5 mmol/L 3.3-5.1 [facility] Potassium [Moles/Vol] 3.5 mmol/L Normal 3.3-5.1 [facility] Comment on above: Performed By: #### L 509.4006, L900.0098, L3410.9992, L3890.6301, BTS, L3890.6006, L3890.6102, L501.9520, L509.8002, L501.9985, L506.0400, L100.0100 #### [facility] [address] [place], [address] ,Serum,hCG Quali.on 10-01-2024 HCG, SERUM QUAL Negative Normal [facility] Comment on above: Performed By: #### L 509.4006, L900.0098, L3410.9992, L3890.6301, BTS, L3890.6006, L3890.6102, L501.9520, L509.8002, L501.9985, L506.0400, L100.0100 #### [facility] [address] [place], [address] Protein Test strip Ql (U)Ord ered By: Khadar Abrams on 10-01-2024 Protein Ql (U) 100 mg/dl High Negative [facility] RBC Auto (Bld) [#/Vol]Ordere d By: Khadar Abrams on 10-01-2024 RBC (Bld) [#/Vol] 4.78 10*6/uL 4.2-5.4 [facility] Serum beta-hCG test, qualita tiveOrdered By: Khadar Abrams on 10-01-2024 Beta HCG ( test) Ql Negative [facility] Serum creatinine measurement (mass/volume)Ordered By: Khadar Abrams on 10-01-2024 Creatinine [Mass/Vol] 0.81 mg/dL Normal 0.70-1.20 [facility] Comment on above: Performed By: #### L 509.4006, L900.0098, L3410.9992, L3890.6301, BTS, L3890.6006, L3890.6102, L501.9520, L509.8002, L501.9985, L506.0400, L100.0100 #### [facility] [address] [place], [place], [id number] (003) Serum glucose measurement (m ass/volume)Ordered By: Khadar Abrams on 10-01-2024 Glucose [Mass/Vol] 133 mg/dL High 70-99 [facility] Comment on above: Performed By: #### L 509.4006, L900.0098, L3410.9992, L3890.6301, BTS, L3890.6006, L3890.6102, L501.9520, L509.8002, L501.9985, L506.0400, L100.0100 #### [facility] [address] [place], [place], [id number] (399) Serum or plasma calcium stuart urement (mass/volume)Ordered By: Khadar Abrams on 10-01-2024 Calcium [Mass/Vol] 8.6 mg/dL Normal 7.6-11.0 [facility] Comment on above: Performed By: #### L 509.4006, L900.0098, L3410.9992, L3890.6301, BTS, L3890.6006, L3890.6102, L501.9520, L509.8002, L501.9985, L506.0400, L100.0100 #### [facility] [address] [place], [place], [id number] (189) Serum or plasma urea nitroge n measurement (mass/volume)Ordered By: Khadar Abrams on 10-01-2024 Urea nitrogen [Mass/Vol] 10 mg/dL Normal 4-19 [facility] Comment on above: Performed By: #### L 509.4006, L900.0098, L3410.9992, L3890.6301, BTS, L3890.6006, L3890.6102, L501.9520, L509.8002, L501.9985, L506.0400, L100.0100 #### [facility] [address] [place], [place], [id number] Sodium levelOrdered By: Khadar Abrams on 10-01-2024 Sodium [Moles/Vol] 137 mmol/L Normal 133-145 [facility] Comment on above: Performed By: #### L 509.4006, L900.0098, L3410.9992, L3890.6301, BTS, L3890.6006, L3890.6102, L501.9520, L509.8002, L501.9985, L506.0400, L100.0100 #### [facility] [address] [place], [address] Squamous epithelial cells de tection in urine sediment by light microscopyOrdered By: Khadar Abrams on 10-01-2024 Epithelial cells.squamous LM Ql (Urine sed) 5-10 SEEN /hpf 5-10 [facility] Urinalysis, Completeon 10-01 BACTERIA 3+ /hpf Normal None Seen [facility] Comment on above: Order Comment: CLEAN CATCH Performed By: #### L 509.4006, L900.0098, L3410.9992, L3890.6301, BTS, L3890.6006, L3890.6102, L501.9520, L509.8002, L501.9985, L506.0400, L100.0100 #### [facility] [address] [place], [place], [id number] EPI,SQUAMOUS 5-10 SEEN Normal 5-10 [facility] Comment on above: Order Comment: CLEAN CATCH Performed By: #### L 509.4006, L900.0098, L3410.9992, L3890.6301, BTS, L3890.6006, L3890.6102, L501.9520, L509.8002, L501.9985, L506.0400, L100.0100 #### [facility] [address] [place], [place], [id number] RBC 0-5 SEEN Normal 0-5 [facility] Comment on above: Order Comment: CLEAN CATCH Performed By: #### L 509.4006, L900.0098, L3410.9992, L3890.6301, BTS, L3890.6006, L3890.6102, L501.9520, L509.8002, L501.9985, L506.0400, L100.0100 #### [facility] [address] [place], [place], [id number] WBC 10-25 SEEN Normal 0-5 [facility] Comment on above: Order Comment: CLEAN CATCH Performed By: #### L 509.4006, L900.0098, L3410.9992, L3890.6301, BTS, L3890.6006, L3890.6102, L501.9520, L509.8002, L501.9985, L506.0400, L100.0100 #### [facility] [address] [place], [place], [id number] Mucus Ql (Urine sed) 0 SEEN Normal [facility] Comment on above: Order Comment: CLEAN CATCH Performed By: #### L 509.4006, L900.0098, L3410.9992, L3890.6301, BTS, L3890.6006, L3890.6102, L501.9520, L509.8002, L501.9985, L506.0400, L100.0100 #### [facility] [address] [place], [address] Urine blood detectionOrdered By: Khadar Abrams on 10-01-2024 Urine Occult Blood 250 /ul High Negative [facility] Urine clarityOrdered By: Deb Abrams on 10-01-2024 Clarity (U) Sl. Cloudy Clear [facility] Urine color determinationOrd ered By: Khadar Abrams on 10-01-2024 Color (U) Yellow Yellow [facility] Urine glucose detectionOrder ed By: Khadar Abrams on 10-01-2024 Glucose Ql (U) Normal mg/dl Normal [facility] Urine leukocyte esterase det ection by dipstickOrdered By: Khadar Abrams on 10-01-2024 Leukocyte esterase Test strip Ql (U) 25 /ul High Negative [facility] Urine pHOrdered By: Khadar kong on 10-01-2024 pH (U) 6.0 [pH] 5.0 - 8.0 [facility] Urine sediment bacteria coun t by microscopy (number/high power field)Ordered By: Khadar Abrams on 10-01-2024 Bacteria LM.HPF (Urine sed) [#/Area] 3 /[HPF] None Seen [facility] Urine specific gravity measu rementOrdered By: Khadar Abrams on 10-01-2024 Specific gravity (U) [Rel density] 1.015 1.002-1.030 [facility] Urine urobilinogen measureme ntOrdered By: Khadar Abrams on 10-01-2024 Urobilinogen Ql (U) 1 mg/dl High Normal [facility] Urobilinogen Ql (U)Ordered B y: Khadar Abrams on 10-01-2024 Urobilinogen (U) [Mass/Vol] 1 mg/dL High Normal [facility] White blood cell (WBC) count Ordered By: Khadar Abrams on 10-01-2024 WBC (Bld) [#/Vol] 14.4 10*3/uL High 4.4-11.0 [facility] White blood cell countOrdere d By: Khadar Abrams on 10-01-2024 Urine WBC 10-25 SEEN /hpf 0-5 [facility] White blood cell count 10-25 SEEN /hpf 0-5 [facility] Absolute lymphocyte countOrd ered By: [facility] on 09-30-2024 Lymphocytes Auto (Unsp spec) [#/Vol] 1.55 10*3/uL 0.83-4.51 [facility] Absolute neutrophil countOrd ered By: [facility] on 09-30-2024 Neutrophils (Bld) [#/Vol] 8.4 10*3/uL High 2.0-7.7 [facility] Anion gap in Serum or Plasma Ordered By: [facility] on 09-30-2024 Anion gap [Moles/Vol] 13 mmol/L 5-15 [facility] Automated lymphocyte count a s percentage of total leukocytesOrdered By: [facility] on 09-30-2024 Lymphocytes/100 WBC Auto (Unsp spec) 13.8 % Low 19-41 [facility] BUN/creatinine ratioOrdered By: [facility] on 09-30-2024 Urea nitrogen/Creatinine [Mass ratio] 12.2 mg/mg 10-20 [facility] Basophil percentageOrdered B y: [facility] on 09-30-2024 Basophils/100 WBC (Bld) 0.4 % 0-1 [facility] Bilirubin Test strip Ql (U)O rdered By: [facility] on 09-30-2024 Bilirubin Ql (U) Negative Negative [facility] Bilirubin, totalOrdered By: [facility] on 09-30-2024 Bilirubin [Mass/Vol] 0.36 mg/dL 0.00-1.30 [facility] CBC W/Diff, Automatedon 09-06 Absolute Lymph 1.55 X10 3/uL Normal 0.83-4.51 [facility] Comment on above: Performed By: #### L 509.4006, L900.0098, L3410.9992, L3890.6301, BTS, L3890.6006, L3890.6102, L501.9520, L509.8002, L501.9985, L506.0400, L100.0100 #### [facility] [place], [address] Absolute Neut 8.4 X10 3/uL High 2.0-7.7 [facility] Comment on above: Performed By: #### L 509.4006, L900.0098, L3410.9992, L3890.6301, BTS, L3890.6006, L3890.6102, L501.9520, L509.8002, L501.9985, L506.0400, L100.0100 #### [facility] [address] [place], [address] Basophils/100 WBC (Bld) 0.4 % Normal 0-1 [facility] Comment on above: Performed By: #### L 509.4006, L900.0098, L3410.9992, L3890.6301, BTS, L3890.6006, L3890.6102, L501.9520, L509.8002, L501.9985, L506.0400, L100.0100 #### [facility] [address] [place], [address] Eosinophils/100 WBC (Bld) 0.5 % Normal 0-5 [facility] Comment on above: Performed By: #### L 509.4006, L900.0098, L3410.9992, L3890.6301, BTS, L3890.6006, L3890.6102, L501.9520, L509.8002, L501.9985, L506.0400, L100.0100 #### [facility] [address] [place], [address] Erythrocyte distribution width (RBC) [Ratio] 13.2 % Normal 11.6-14.6 [facility] Comment on above: Performed By: #### L 509.4006, L900.0098, L3410.9992, L3890.6301, BTS, L3890.6006, L3890.6102, L501.9520, L509.8002, L501.9985, L506.0400, L100.0100 #### [facility] [address] [place], [address] Hematocrit (Bld) [Volume fraction] 42.7 % Normal 37-47 [facility] Comment on above: Performed By: #### L 509.4006, L900.0098, L3410.9992, L3890.6301, BTS, L3890.6006, L3890.6102, L501.9520, L509.8002, L501.9985, L506.0400, L100.0100 #### [facility] [address] [place], [address] Hemoglobin (Bld) [Mass/Vol] 14.5 g/dL Normal 12.0-15.0 [facility] Comment on above: Performed By: #### L 509.4006, L900.0098, L3410.9992, L3890.6301, BTS, L3890.6006, L3890.6102, L501.9520, L509.8002, L501.9985, L506.0400, L100.0100 #### [facility] [address] [place], [address] IG% 0.400 Normal 0.0-0.9 [facility] Comment on above: Result Comment: IG% - Immature Granulocytes (promyelocytes, myelocytes and metamyelocytes) > 1% indicates that a LEFT SHIFT is Present. Performed By: #### L 509.4006, L900.0098, L3410.9992, L3890.6301, BTS, L3890.6006, L3890.6102, L501.9520, L509.8002, L501.9985, L506.0400, L100.0100 #### [facility] [address] [place], [address] Lymphocytes/100 WBC (Bld) 13.8 % Low 19-41 [facility] Comment on above: Performed By: #### L 509.4006, L900.0098, L3410.9992, L3890.6301, BTS, L3890.6006, L3890.6102, L501.9520, L509.8002, L501.9985, L506.0400, L100.0100 #### [facility] [address] [place], [address] MCH (RBC) [Entitic mass] 28.5 pg Normal 27.0-32.0 [facility] Comment on above: Performed By: #### L 509.4006, L900.0098, L3410.9992, L3890.6301, BTS, L3890.6006, L3890.6102, L501.9520, L509.8002, L501.9985, L506.0400, L100.0100 #### [facility] [address] [place], [address] MCHC (RBC) [Mass/Vol] 34.0 g/dL Normal 32-36 [facility] Comment on above: Performed By: #### L 509.4006, L900.0098, L3410.9992, L3890.6301, BTS, L3890.6006, L3890.6102, L501.9520, L509.8002, L501.9985, L506.0400, L100.0100 #### [facility] [address] [place], [address] MCV (RBC) [Entitic vol] 83.9 fL Normal 81-99 [facility] Comment on above: Performed By: #### L 509.4006, L900.0098, L3410.9992, L3890.6301, BTS, L3890.6006, L3890.6102, L501.9520, L509.8002, L501.9985, L506.0400, L100.0100 #### [facility] [address] [place], [address] Monocytes/100 WBC (Bld) 10.4 % High 0-10 [facility] Comment on above: Performed By: #### L 509.4006, L900.0098, L3410.9992, L3890.6301, BTS, L3890.6006, L3890.6102, L501.9520, L509.8002, L501.9985, L506.0400, L100.0100 #### [facility] [address] [place], [address] Neutrophils/100 WBC (Bld) 74.5 % High 47-70 [facility] Comment on above: Performed By: #### L 509.4006, L900.0098, L3410.9992, L3890.6301, BTS, L3890.6006, L3890.6102, L501.9520, L509.8002, L501.9985, L506.0400, L100.0100 #### [facility] [address] [place], [address] Nucleated RBC (Bld) [#/Vol] 0 10*3/uL Normal 0-5 [facility] Comment on above: Performed By: #### L 509.4006, L900.0098, L3410.9992, L3890.6301, BTS, L3890.6006, L3890.6102, L501.9520, L509.8002, L501.9985, L506.0400, L100.0100 #### [facility] [address] [place], [address] Platelet mean volume (Bld) [Entitic vol] 9.8 fL Normal 6.2-12.0 [facility] Comment on above: Performed By: #### L 509.4006, L900.0098, L3410.9992, L3890.6301, BTS, L3890.6006, L3890.6102, L501.9520, L509.8002, L501.9985, L506.0400, L100.0100 #### [facility] [address] [place], [address] Platelets (Bld) [#/Vol] 264 10*3/uL Normal 150-450 [facility] Comment on above: Performed By: #### L 509.4006, L900.0098, L3410.9992, L3890.6301, BTS, L3890.6006, L3890.6102, L501.9520, L509.8002, L501.9985, L506.0400, L100.0100 #### [facility] [address] [place], [address] RBC (Bld) [#/Vol] 5.09 10*6/uL Normal 4.2-5.4 [facility] Comment on above: Performed By: #### L 509.4006, L900.0098, L3410.9992, L3890.6301, BTS, L3890.6006, L3890.6102, L501.9520, L509.8002, L501.9985, L506.0400, L100.0100 #### [facility] [address] [place], [address] RDW SD 40.5 fl Normal 35.1-43.9 [facility] Comment on above: Performed By: #### L 509.4006, L900.0098, L3410.9992, L3890.6301, BTS, L3890.6006, L3890.6102, L501.9520, L509.8002, L501.9985, L506.0400, L100.0100 #### [facility] [address] [place], [address] WBC (Bld) [#/Vol] 11.2 10*3/uL High 4.4-11.0 [facility] Comment on above: Performed By: #### L 509.4006, L900.0098, L3410.9992, L3890.6301, BTS, L3890.6006, L3890.6102, L501.9520, L509.8002, L501.9985, L506.0400, L100.0100 #### [facility] [address] [place], [place], [id number] (726) Carbon dioxide, total [Moles /volume] in Central venous bloodOrdered By: Julio Cesar McMorrow on 09-30-2024 CO2 [Moles/Vol] 23.8 mmol/L 21.0-32.0 [facility] Chloride assayOrdered By: An gel McMorrow on 09-30-2024 Chloride [Moles/Vol] 100 mmol/L 98-108 [facility] Comprehensive Metabolic Prof ilon 09-30-2024 Albumin [Mass/Vol] 4.2 g/dL Normal 3.5-5.0 [facility] Comment on above: Performed By: #### L 509.4006, L900.0098, L3410.9992, L3890.6301, BTS, L3890.6006, L3890.6102, L501.9520, L509.8002, L501.9985, L506.0400, L100.0100 #### [facility] [address] [place], [place], [id number] (972) Albumin/Globulin [Mass ratio] 1.4 {ratio} Normal 0.9-2.4 [facility] Comment on above: Performed By: #### L 509.4006, L900.0098, L3410.9992, L3890.6301, BTS, L3890.6006, L3890.6102, L501.9520, L509.8002, L501.9985, L506.0400, L100.0100 #### [facility] [address] [place], [address] ALK PHOS 58 U/L Normal 35-104 [facility] Comment on above: Performed By: #### L 509.4006, L900.0098, L3410.9992, L3890.6301, BTS, L3890.6006, L3890.6102, L501.9520, L509.8002, L501.9985, L506.0400, L100.0100 #### [facility] [address] [place], [place], [id number] (054) ALT [Catalytic activity/Vol] 21 U/L Normal <=34 [facility] Comment on above: Performed By: #### L 509.4006, L900.0098, L3410.9992, L3890.6301, BTS, L3890.6006, L3890.6102, L501.9520, L509.8002, L501.9985, L506.0400, L100.0100 #### [facility] [address] [place], [place], [id number] AST [Catalytic activity/Vol] 16 U/L Normal <=31 [facility] Comment on above: Performed By: #### L 509.4006, L900.0098, L3410.9992, L3890.6301, BTS, L3890.6006, L3890.6102, L501.9520, L509.8002, L501.9985, L506.0400, L100.0100 #### [facility] [address] [place], [place], [id number] Bilirubin [Mass/Vol] 0.36 mg/dL Normal 0.00-1.30 [facility] Comment on above: Performed By: #### L 509.4006, L900.0098, L3410.9992, L3890.6301, BTS, L3890.6006, L3890.6102, L501.9520, L509.8002, L501.9985, L506.0400, L100.0100 #### [facility] [address] [place], [address] BUN/CRE 12.2 RATIO Normal 10-20 [facility] Comment on above: Performed By: #### L 509.4006, L900.0098, L3410.9992, L3890.6301, BTS, L3890.6006, L3890.6102, L501.9520, L509.8002, L501.9985, L506.0400, L100.0100 #### [facility] [address] [place], [address] Calcium [Mass/Vol] 9.2 mg/dL Normal 7.6-11.0 [facility] Comment on above: Performed By: #### L 509.4006, L900.0098, L3410.9992, L3890.6301, BTS, L3890.6006, L3890.6102, L501.9520, L509.8002, L501.9985, L506.0400, L100.0100 #### [facility] [address] [place], [address] Chloride [Moles/Vol] 100 mmol/L Normal 98-108 [facility] Comment on above: Performed By: #### L 509.4006, L900.0098, L3410.9992, L3890.6301, BTS, L3890.6006, L3890.6102, L501.9520, L509.8002, L501.9985, L506.0400, L100.0100 #### [facility] [address] [place], [address] CO2 [Moles/Vol] 23.8 mmol/L Normal 21.0-32.0 [facility] Comment on above: Performed By: #### L 509.4006, L900.0098, L3410.9992, L3890.6301, BTS, L3890.6006, L3890.6102, L501.9520, L509.8002, L501.9985, L506.0400, L100.0100 #### [facility] [address] [place], [place], [id number] Creatinine [Mass/Vol] 0.93 mg/dL Normal 0.70-1.20 [facility] Comment on above: Performed By: #### L 509.4006, L900.0098, L3410.9992, L3890.6301, BTS, L3890.6006, L3890.6102, L501.9520, L509.8002, L501.9985, L506.0400, L100.0100 #### [facility] [address] [place], [place], [id number] GAP 13 Normal 5-15 [facility] Comment on above: Performed By: #### L 509.4006, L900.0098, L3410.9992, L3890.6301, BTS, L3890.6006, L3890.6102, L501.9520, L509.8002, L501.9985, L506.0400, L100.0100 #### [facility] [address] [place], [address] GFR/1.73 sq M.predicted among non-blacks MDRD (S/P/Bld) [Vol rate/Area] 85 mL/min/{1.73_m2} Normal >60 [facility] Comment on above: Result Comment: mL/m in/1.73m2 CKD-EPI Creatinine Equation (2020) Performed By: #### L 509.4006, L900.0098, L3410.9992, L3890.6301, BTS, L3890.6006, L3890.6102, L501.9520, L509.8002, L501.9985, L506.0400, L100.0100 #### [facility] [address] [place], [address] Globulin (S) [Mass/Vol] 3.0 g/dL Normal 2.2-4.2 [facility] Comment on above: Performed By: #### L 509.4006, L900.0098, L3410.9992, L3890.6301, BTS, L3890.6006, L3890.6102, L501.9520, L509.8002, L501.9985, L506.0400, L100.0100 #### [facility] [address] [place], [address] Glucose [Mass/Vol] 71 mg/dL Normal 70-99 [facility] Comment on above: Performed By: #### L 509.4006, L900.0098, L3410.9992, L3890.6301, BTS, L3890.6006, L3890.6102, L501.9520, L509.8002, L501.9985, L506.0400, L100.0100 #### [facility] [address] [place], [address] Potassium [Moles/Vol] 3.2 mmol/L Low 3.3-5.1 [facility] Comment on above: Performed By: #### L 509.4006, L900.0098, L3410.9992, L3890.6301, BTS, L3890.6006, L3890.6102, L501.9520, L509.8002, L501.9985, L506.0400, L100.0100 #### [facility] [address] [place], [address] Sodium [Moles/Vol] 137 mmol/L Normal 133-145 [facility] Comment on above: Performed By: #### L 509.4006, L900.0098, L3410.9992, L3890.6301, BTS, L3890.6006, L3890.6102, L501.9520, L509.8002, L501.9985, L506.0400, L100.0100 #### [facility] [address] [place], [place], [id number] T PROT 7.2 g/dL Normal 5.9-8.4 [facility] Comment on above: Performed By: #### L 509.4006, L900.0098, L3410.9992, L3890.6301, BTS, L3890.6006, L3890.6102, L501.9520, L509.8002, L501.9985, L506.0400, L100.0100 #### [facility] [address] [place], [address] Urea nitrogen [Mass/Vol] 11 mg/dL Normal 4-19 [facility] Comment on above: Performed By: #### L 509.4006, L900.0098, L3410.9992, L3890.6301, BTS, L3890.6006, L3890.6102, L501.9520, L509.8002, L501.9985, L506.0400, L100.0100 #### [facility] [address] [place], [address] Eosinophil percentageOrdered By: Julio Cesar Michael on 09-30-2024 Eosinophils/100 WBC (Bld) 0.5 % 0-5 [facility] Epithelial cells.squamous LM Ql (Urine sed)Ordered By: Julio Cesar Michael on 09-30-2024 Epithelial cells.squamous LM.HPF (Urine sed) [#/Area] 0 /[HPF] 5-10 [facility] Erythrocyte distribution wid th ratioOrdered By: Julio Cesar Michael on 09-30-2024 Erythrocyte distribution width (RBC) [Ratio] 13.2 % 11.6-14.6 [facility] Erythrocyte distribution wid standard deviationOrdered By: Julio Cesar Michael 09-30-2024 Erythrocyte distribution width (RBC) [Entitic vol] 40.5 fL 35.1-43.9 [facility] Erythrocyte distribution width (RBC) [Ratio] 40.5 fl 35.1-43.9 [facility] GFR/1.73 sq M.predicted adelso g non-blacks MDRD (S/P/Bld) [Vol rate/Area]Ordered By: Julio Cesar Michael 09-30-2024 Estimated GFR (MDRD) Non-Af Amer 85 >60 [facility] Comment on above: mL/min/1.73m2 CKD-EP I Creatinine Equation (2020) Glomerular filtration rate ( GFR) estimation/1.73 sq m using serum, plasma, or whole bOrdered By: Julio Cesar Michael on 09-30-2024 GFR/1.73 sq M.predicted among non-blacks MDRD (S/P/Bld) [Vol rate/Area] 85 mL/min/{1.73_m2} >60 [facility] Comment on above: mL/min/1.73m2 CKD-EP I Creatinine Equation (2020) Glucose Ql (U)Ordered By: Sinai Michael on 09-30-2024 Urine Glucose (UA) Normal mg/dl Normal [facility] Hematocrit Auto (Bld) [Volum e fraction]Ordered By: Julio Cesar Michael 09-30-2024 Hematocrit (Bld) [Volume fraction] 42.7 % 37-47 [facility] Hemoglobin measurementOrdere d By: Julio Cesar Michael 09-30-2024 Hemoglobin (Bld) [Mass/Vol] 14.5 g/dL 12.0-15.0 [facility] Immature granulocytes/100 WB C Auto (Bld)Ordered By: Julio Cesar Michael 09-30-2024 Immature granulocytes/100 WBC (Bld) 0.400 % 0.0-0.9 [facility] Comment on above: IG% - Immature Granu locytes (promyelocytes, myelocytes and metamyelocytes) > 1% indicates that a LEFT SHIFT is Present. Ketones Test strip Ql (U)Ord ered By: Julio Cesar Michael 09-30-2024 Ketones Ql (U) Negative Negative [facility] - Chemistry and C hemistry - challengeOrdered By: Julio Cesar Michael on 09-30-2024 AST [Catalytic activity/Vol] 16 U/L <32 [facility] Lymphocytes Auto (Unsp spec) [#/Vol]Ordered By: Julio Cesar Vorakeyona on 09-30-2024 Lymphocytes (Bld) [#/Vol] 1.55 10*3/uL 0.83-4.51 [facility] Lymphocytes/100 WBC Auto (Un sp spec)Ordered By: Julio Cesar Michael on 09-30-2024 Lymphocytes/100 WBC (Bld) 13.8 % Low 19-41 [facility] MCV (mean corpuscular volume ) determinationOrdered By: [facility] MCV (RBC) [Entitic vol] 83.9 fL 81-99 [facility] Mean corpuscular hemoglobin (MCH) determinationOrdered By: [facility] on 09-30-2024 MCH (RBC) [Entitic mass] 28.5 pg 27.0-32.0 [facility] Mean corpuscular hemoglobin concentration (MCHC) determinationOrdered By: [facility] on 09-30-2024 MCHC (RBC) [Mass/Vol] 34.0 g/dL 32-36 [facility] Mean platelet volume determi nationOrdered By: [facility] on 09-30-2024 Platelet mean volume (Bld) [Entitic vol] 9.8 fL 6.2-12.0 [facility] Microscopic analysis of urin e for red blood cells (RBC)Ordered By: Julio Cesar Michael on 09-30-2024 Microscopic analysis of urine for red blood cells (RBC) 0-5 SEEN /hpf 0-5 [facility] Urine RBC 0-5 SEEN /hpf 0-5 [facility] Monocyte percentageOrdered B y: [facility] Cesar [facility] Monocytes/100 WBC (Bld) 10.4 % High 0-10 [facility] Mucus LM Ql (Urine sed)[facility] ed [facility]: [facility] Mucus Ql (Urine sed) 0 SEEN /hpf [facility] Neutrophil percentageOrdered By: [facility] on 09-[facility]-2024 Neutrophils/100 WBC (Bld) 74.5 % High 47-70 [facility] Nitrite Test strip Ql (U)Ord ered By: Julio Cesar Tauruskeyona on 09-30-2024 Nitrite Ql (U) Negative Negative [facility] Nucleated red blood cell per centageOrdered By: Julio Cesar Tauruskeyona on 09-30-2024 Nucleated RBC/100 WBC (Bld) [Ratio] 0 % 0-5 [facility] Platelet countOrdered By: [facility] will orrkeyona on 09-30-2024 Platelets (Bld) [#/Vol] 264 10*3/uL 150-450 [facility] Potassium (Unsp spec) [Mass/ Vol]Ordered By: Julio Cesar [facility]2024 Potassium [Moles/Vol] 3.2 mmol/L Low 3.3-5.1 [facility] Potassium measurement (mass/ volume)Ordered By: Julio Cesar Tauruskeyona 09-30-2024 Potassium (Unsp spec) [Mass/Vol] 3.2 mmol/L Low 3.3-5.1 [facility] Protein Test strip Ql (U)Ord ered By: Julio Cesar Tauruskeyona on 09-30-2024 Protein Ql (U) 15 mg/dl High Negative [facility] RBC Auto (Bld) [#/Vol]Ordere d By: Julio Cesar Tauruskeyona 09-30-2024 RBC (Bld) [#/Vol] 5.09 10*6/uL 4.2-5.4 [facility] Serum creatinine measurement (mass/volume)Ordered By: Julio Cesar Dionysilverio 09-30-2024 Creatinine [Mass/Vol] 0.93 mg/dL 0.70-1.20 [facility] Serum globulin measurementOr dered By: Julio Cesar Tauruskeyona 09-30-2024 Globulin (S) [Mass/Vol] 3.0 g/dL 2.2-4.2 [facility] Serum glucose measurement (m ass/volume)Ordered By: Julio Cesar Michael 09-30-2024 Glucose [Mass/Vol] 71 mg/dL 70-99 [facility] Serum or plasma alanine guerrier otransferase (ALT) measurementOrdered By: Julio Cesar Michael 09-30-2024 ALT [Catalytic activity/Vol] 21 U/L <35 [facility] Serum or plasma albumin stuart urement (mass/volume)Ordered By: [facility] on 09-30-2024 Albumin [Mass/Vol] 4.2 g/dL 3.5-5.0 [facility] Serum or plasma albumin/glob ulin mass ratioOrdered By: [facility] on 09-30-2024 Albumin/Globulin [Mass ratio] 1.4 {ratio} 0.9-2.4 [facility] Serum or plasma alkaline venkata sphatase measurementOrdered By: [facility] on 09-30-2024 ALP [Catalytic activity/Vol] 58 U/L 35-104 [facility] Serum or plasma calcium stuart urement (mass/volume)Ordered By: [facility] on 09-30-2024 Calcium [Mass/Vol] 9.2 mg/dL 7.6-11.0 [facility] Serum or plasma urea nitroge n measurement (mass/volume)Ordered By: [facility] on 09-30-2024 Urea nitrogen [Mass/Vol] 11 mg/dL 4-19 [facility] Sodium levelOrdered By: Hanane jalloh [facility] on 09-30-2024 Sodium [Moles/Vol] 137 mmol/L 133-145 [facility] Squamous epithelial cells de tection in urine sediment by light microscopyOrdered By: Julio Cesar [facility] on 09-30-2024 Epithelial cells.squamous LM Ql (Urine sed) 0-5 SEEN /hpf 5-10 [facility] Total proteinOrdered By: Alejo guzman [facility] on 09-30-2024 Protein [Mass/Vol] 7.2 g/dL 5.9-8.4 [facility] Transvaginal w/Preg USon Transvaginal w/Preg US [facility] [address] [place] [address] Transvaginal w/Preg US MR#: [id number] Acct: [id number] Name: SKYE BRISCOE Rep #: [id number] : 1995 F 29 From: Lina Jurado nd, MD PCP: Dr. Stacey Santacruz MD Status: REG CLI Study: Transvaginal w/Preg US Date of Exam: 09/30/24 Exam# [id number] Ordering Dr: Jocelyn Gomez NP PROCEDURE: TRANSVAGINAL W/PREG US 09/30/2024 REASON FOR EXAM: 29-year-old female, spontaneous in August. Patient now with vaginal bleeding. History of . TECHNIQUE: Transabdominal ultrasound imaging was obtained as well as color Doppler interrogation. COMPARISON: Pelvic ultrasound 09/07/2024. FINDINGS: Measurements: Uterus: 9.2 x 6.7 x 5.4 cm with a volume of 173 mL Endometrial Thickness: 1.7 cm Right Ovary: 4.3 x 2.6 x 2.6 cm with a volume of 15.0 mL. Left Ovary: 2.8 x 2.4 x 1.6 cm with a volume of 5.5 mL. Uterus: Normal size, myometrial echotexture, and contour. The cervical os is closed. Endometrium: Homogeneously thickened. No hypervascularity. Right ovary: Small right corpus luteum. Left ovary: Unremarkable. Other: No large pelvic mass identified. No free pelvic fluid. US/Transvaginal w/Preg US IMPRESSION: Mild endometrial thickening without discrete mass or hypervascularity. Reading [facility] CC: PATRICIA Gomez; Dr. Stacey Santacruz MD [employer]: Signed Normal [facility] Urinalysis, Completeon 09-30 BACTERIA 1+ /hpf Normal None Seen [facility] Comment on above: Order Comment: Urine , Random Performed By: #### L 509.4006, L900.0098, L3410.9992, L3890.6301, BTS, L3890.6006, L3890.6102, L501.9520, L509.8002, L501.9985, L506.0400, L100.0100 #### [facility] [address] [place], [address] EPI,SQUAMOUS 0-5 SEEN Normal 5-10 [facility] Comment on above: Order Comment: Urine , Random Performed By: #### L 509.4006, L900.0098, L3410.9992, L3890.6301, BTS, L3890.6006, L3890.6102, L501.9520, L509.8002, L501.9985, L506.0400, L100.0100 #### [facility] [address] [place], [place], [id number] (210) RBC 0-5 SEEN Normal 0-5 [facility] Comment on above: Order Comment: Urine , Random Performed By: #### L 509.4006, L900.0098, L3410.9992, L3890.6301, BTS, L3890.6006, L3890.6102, L501.9520, L509.8002, L501.9985, L506.0400, L100.0100 #### [facility] [address] [place], [place], [id number] WBC 0-5 SEEN Normal 0-5 [facility] Comment on above: Order Comment: Urine , Random Performed By: #### L 509.4006, L900.0098, L3410.9992, L3890.6301, BTS, L3890.6006, L3890.6102, L501.9520, L509.8002, L501.9985, L506.0400, L100.0100 #### [facility] [address] [place], [place], [id number] Mucus Ql (Urine sed) 0 SEEN Normal [facility] Comment on above: Order Comment: Urine , Random Performed By: #### L 509.4006, L900.0098, L3410.9992, L3890.6301, BTS, L3890.6006, L3890.6102, L501.9520, L509.8002, L501.9985, L506.0400, L100.0100 #### [facility] [address] [place], [place], [id number] Urine blood detectionOrdered By: Julio Cesar Michael on 09-30-2024 Urine Occult Blood 250 /ul High Negative [facility] Urine clarityOrdered By: Alejo Michael on 09-30-2024 Clarity (U) Sl. Cloudy Clear [facility] Urine color determinationOrd ered By: Julio Cesar Michael on 09-30-2024 Color (U) Yellow Yellow [facility] Urine cultureOrdered By: Alejo Michael on 09-30-2024 Bacteria identified Cx Nom (U) Presumptive E. coli Abnormal [facility] Urine glucose detectionOrder ed By: Julio Cesar Michael on 09-30-2024 Glucose Ql (U) Normal mg/dl Normal [facility] Urine leukocyte esterase det ection by dipstickOrdered By: Julio Cesar Michael on 09-30-2024 Leukocyte esterase Test strip Ql (U) Negative Negative [facility] Urine pHOrdered By: Julio Cesar Gutierrez on 09-30-2024 pH (U) 6.0 [pH] 5.0 - 8.0 [facility] Urine sediment bacteria coun t by microscopy (number/high power field)Ordered By: Julio Cesar Michael on 09-30-2024 Bacteria LM.HPF (Urine sed) [#/Area] 1 /[HPF] None Seen [facility] Urine specific gravity measu rementOrdered By: Julio Cesar Michael on 09-30-2024 Specific gravity (U) [Rel density] 1.015 1.002-1.030 [facility] Urine urobilinogen measureme ntOrdered By: Julio Cesar Michael on 09-30-2024 Urobilinogen Ql (U) Normal mg/dl Normal [facility] Urobilinogen Ql (U)Ordered B y: Julio Cesar Michael on 09-30-2024 Urine Urobilinogen Normal mg/dl Normal [facility] White blood cell (WBC) count Ordered By: Julio Cesar Michael on 09-30-2024 WBC (Bld) [#/Vol] 11.2 10*3/uL High 4.4-11.0 [facility] White blood cell countOrdere d By: Julio Cesar Michael on 09-30-2024 Urine WBC 0-5 SEEN /hpf 0-5 [facility] White blood cell count 0-5 SEEN /hpf 0-5 [facility] Abdomen/Pelvis without Conto n 09-24-2024 Abdomen/Pelvis without Cont [facility] [address] [place], [place] [address] Abdomen/Pelvis without Cont MR#: [id number] Acct: [id number] Name: SKYE BRISCOE Rep #: [id number] : 1995 F 29 From: Lina Jurado nd, MD PCP: Dr. Stacey Santacruz MD Status: REG ER Study: Abdomen/Pelvis without Cont Date of Exam: 09/06 Exam# [id number] Ordering Dr: Khadar Abrams DO PROCEDURE: ABDOMEN/PELVIS WITHOUT CONT 09/24/2024 REASON FOR EXAM: 29-year-old female, right flank pain beginning this morning, history of and kidney infection. TECHNIQUE: Abdomen and pelvis CT without intravenous contrast. Coronal and Sagittal reconstruction series were provided. One or more dose reduction techniques were used (e.g., Automated exposure control, adjustment of the mA and/or kV according to patient size, use of iterative reconstruction technique). PATIENT PREPARATION: Per protocol ORAL CONTRAST TYPE: None. COMPARISON: CT abdomen pelvis 08/01/2024. FINDINGS: Noncontrast technique limits evaluation of the abdominal and pelvic viscera. Lung bases: The heart is normal in size. The lung bases are clear. Liver: The unopacified liver is normal in size. No biliary ductal dilation. Gallbladder: No radiopaque stones within the gallbladder. Spleen: Pancreas: The unopacified pancreas is unremarkable. Adrenals: Kidneys: Stable nonobstructing right upper pole renal calculus with associated renal cortical scarring. New, tiny nonobstructing left lower pole renal calculus. Bladder: The urinary bladder is minimally distended and unremarkable. Reproductive Organs: Unremarkable. Bowel: The bowel loops are normal in caliber. No ascites or pneumoperitoneum. Normal appendix. Lymph nodes: No suspicious lymphadenopathy. Vasculature: The abdominal aorta and IVC contours are normal. Noncontrast technique limits evaluation. 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 Mild thoracolumbar spondylosis. No aggressive osseous lesions. Ornamental jewelry within the bilateral upper chest. CT/Abdomen/Pelvis without Cont IMPRESSION: NO ACUTE FINDINGS AT THE ABDOMEN OR PELVIS ON NONCONTRAST CT. Reading Location: [facility] CC: Dr. Stacey Santacruz MD; Dr. 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 [employer] Tester: Signed Normal [facility] Absolute lymphocyte countOrd ered By: Khadar Abrams on 09-24-2024 Lymphocytes Auto (Unsp spec) [#/Vol] 1.70 10*3/uL 0.83-4.51 [facility] Absolute neutrophil countOrd ered By: Khadar Abrams on 09-24-2024 Neutrophils (Bld) [#/Vol] 8.2 10*3/uL High 2.0-7.7 [facility] Anion gap in Serum or Plasma Ordered By: Khadar Abrams on 09-24-2024 Anion gap [Moles/Vol] 13 mmol/L 5-15 [facility] Automated lymphocyte count a s percentage of total leukocytesOrdered By: Khadar Abrams on 09-24-2024 Lymphocytes/100 WBC Auto (Unsp spec) 15.3 % Low 19-41 [facility] BUN/creatinine ratioOrdered By: Khadar Abrams on 09-24-2024 Urea nitrogen/Creatinine [Mass ratio] 14.6 mg/mg 10-20 [facility] Basophil percentageOrdered B y: Khadar Abrams on 09-24-2024 Basophils/100 WBC (Bld) 0.4 % 0-1 [facility] Beta HCG ( test) Ql Ordered By: Khadar Abrams on 09-24-2024 Serum Test, Qualitative Negative [facility] Bilirubin Test strip Ql (U)O rdered By: Khadar Abrams on 09-24-2024 Bilirubin Ql (U) Negative Negative [facility] Bilirubin, totalOrdered By: Khadar Abrams on 09-24-2024 Bilirubin [Mass/Vol] 0.44 mg/dL 0.00-1.30 [facility] CBC W/Diff, Automatedon 09-06 Absolute Lymph 1.70 X10 3/uL Normal 0.83-4.51 [facility] Comment on above: Performed By: #### L 509.4006, L900.0098, L3410.9992, L3890.6301, BTS, L3890.6006, L3890.6102, L501.9520, L509.8002, L501.9985, L506.0400, L100.0100 #### [facility] [address] [place], [place], [id number] (162) Absolute Neut 8.2 X10 3/uL High 2.0-7.7 [facility] Comment on above: Performed By: #### L 509.4006, L900.0098, L3410.9992, L3890.6301, BTS, L3890.6006, L3890.6102, L501.9520, L509.8002, L501.9985, L506.0400, L100.0100 #### [facility] [address] [place], [place], [id number] (390) Basophils/100 WBC (Bld) 0.4 % Normal 0-1 [facility] Comment on above: Performed By: #### L 509.4006, L900.0098, L3410.9992, L3890.6301, BTS, L3890.6006, L3890.6102, L501.9520, L509.8002, L501.9985, L506.0400, L100.0100 #### [facility] [address] [place], [address] Eosinophils/100 WBC (Bld) 0.7 % Normal 0-5 [facility] Comment on above: Performed By: #### L 509.4006, L900.0098, L3410.9992, L3890.6301, BTS, L3890.6006, L3890.6102, L501.9520, L509.8002, L501.9985, L506.0400, L100.0100 #### [facility] [address] [place], [address] Erythrocyte distribution width (RBC) [Ratio] 13.4 % Normal 11.6-14.6 [facility] Comment on above: Performed By: #### L 509.4006, L900.0098, L3410.9992, L3890.6301, BTS, L3890.6006, L3890.6102, L501.9520, L509.8002, L501.9985, L506.0400, L100.0100 #### [facility] [address] [place], [address] ( Hematocrit (Bld) [Volume fraction] 40.4 % Normal 37-47 [facility] Comment on above: Performed By: #### L 509.4006, L900.0098, L3410.9992, L3890.6301, BTS, L3890.6006, L3890.6102, L501.9520, L509.8002, L501.9985, L506.0400, L100.0100 #### [facility] [address] [place], [address] Hemoglobin (Bld) [Mass/Vol] 13.6 g/dL Normal 12.0-15.0 [facility] Comment on above: Performed By: #### L 509.4006, L900.0098, L3410.9992, L3890.6301, BTS, L3890.6006, L3890.6102, L501.9520, L509.8002, L501.9985, L506.0400, L100.0100 #### [facility] [address] [place], [address] IG% 0.400 Normal 0.0-0.9 [facility] Comment on above: Result Comment: IG% - Immature Granulocytes (promyelocytes, myelocytes and metamyelocytes) > 1% indicates that a LEFT SHIFT is Present. Performed By: #### L 509.4006, L900.0098, L3410.9992, L3890.6301, BTS, L3890.6006, L3890.6102, L501.9520, L509.8002, L501.9985, L506.0400, L100.0100 #### [facility] [address] [place], [address] Lymphocytes/100 WBC (Bld) 15.3 % Low 19-41 [facility] Comment on above: Performed By: #### L 509.4006, L900.0098, L3410.9992, L3890.6301, BTS, L3890.6006, L3890.6102, L501.9520, L509.8002, L501.9985, L506.0400, L100.0100 #### [facility] [address] [place], [address] MCH (RBC) [Entitic mass] 28.4 pg Normal 27.0-32.0 [facility] Comment on above: Performed By: #### L 509.4006, L900.0098, L3410.9992, L3890.6301, BTS, L3890.6006, L3890.6102, L501.9520, L509.8002, L501.9985, L506.0400, L100.0100 #### [facility] [address] [place], [address] MCHC (RBC) [Mass/Vol] 33.7 g/dL Normal 32-36 [facility] Comment on above: Performed By: #### L 509.4006, L900.0098, L3410.9992, L3890.6301, BTS, L3890.6006, L3890.6102, L501.9520, L509.8002, L501.9985, L506.0400, L100.0100 #### [facility] [address] [place], [address] MCV (RBC) [Entitic vol] 84.3 fL Normal 81-99 [facility] Comment on above: Performed By: #### L 509.4006, L900.0098, L3410.9992, L3890.6301, BTS, L3890.6006, L3890.6102, L501.9520, L509.8002, L501.9985, L506.0400, L100.0100 #### [facility] [address] [place], [address] Monocytes/100 WBC (Bld) 9.3 % Normal 0-10 [facility] Comment on above: Performed By: #### L 509.4006, L900.0098, L3410.9992, L3890.6301, BTS, L3890.6006, L3890.6102, L501.9520, L509.8002, L501.9985, L506.0400, L100.0100 #### [facility] [address] [place], [address] Neutrophils/100 WBC (Bld) 73.9 % High 47-70 [facility] Comment on above: Performed By: #### L 509.4006, L900.0098, L3410.9992, L3890.6301, BTS, L3890.6006, L3890.6102, L501.9520, L509.8002, L501.9985, L506.0400, L100.0100 #### [facility] [address] [place], [address] Nucleated RBC (Bld) [#/Vol] 0 10*3/uL Normal 0-5 [facility] Comment on above: Performed By: #### L 509.4006, L900.0098, L3410.9992, L3890.6301, BTS, L3890.6006, L3890.6102, L501.9520, L509.8002, L501.9985, L506.0400, L100.0100 #### [facility] [address] [place], [address] Platelet mean volume (Bld) [Entitic vol] 9.9 fL Normal 6.2-12.0 [facility] Comment on above: Performed By: #### L 509.4006, L900.0098, L3410.9992, L3890.6301, BTS, L3890.6006, L3890.6102, L501.9520, L509.8002, L501.9985, L506.0400, L100.0100 #### [facility] [address] [place], [address] Platelets (Bld) [#/Vol] 228 10*3/uL Normal 150-450 [facility] Comment on above: Performed By: #### L 509.4006, L900.0098, L3410.9992, L3890.6301, BTS, L3890.6006, L3890.6102, L501.9520, L509.8002, L501.9985, L506.0400, L100.0100 #### [facility] [address] [place], [address] RBC (Bld) [#/Vol] 4.79 10*6/uL Normal 4.2-5.4 [facility] Comment on above: Performed By: #### L 509.4006, L900.0098, L3410.9992, L3890.6301, BTS, L3890.6006, L3890.6102, L501.9520, L509.8002, L501.9985, L506.0400, L100.0100 #### [facility] [address] [place], [address] RDW SD 41.1 fl Normal 35.1-43.9 [facility] Comment on above: Performed By: #### L 509.4006, L900.0098, L3410.9992, L3890.6301, BTS, L3890.6006, L3890.6102, L501.9520, L509.8002, L501.9985, L506.0400, L100.0100 #### [facility] [address] [place], [place], [address] WBC (Bld) [#/Vol] 11.1 10*3/uL High 4.4-11.0 [facility] Comment on above: Performed By: #### L 509.4006, L900.0098, L3410.9992, L3890.6301, BTS, L3890.6006, L3890.6102, L501.9520, L509.8002, L501.9985, L506.0400, L100.0100 #### [facility] [address] [place], [place], [address] CNOVon 09-24-2024 CNOV Office Visit (UCWSTR ) SKYE BRISCOE ([id number]) 1995 F Date Time Provider Department 09/24/24 1:30 PM BARBRA TORREZ [facility] During your visit today, we recorded the following information about you: Barbra Torrez PA-C 09/24/2024 1:25 PM Signed This note was created using NoteWriter. Subjective Skye Sussy Briscoe is a 29 year old female. Patient is a 29-year-old female complains of right upper and right lower quadrant abdominal pain that has been present for the past 1 day. Patient denies nausea, vomiting or diarrhea. Patient has no history of gallbladder disease or other GI conditions. Patient was immediately advised that she requires evaluation in an emergency department laboratory testing, CT scan and ultrasound imaging can be obtained. Patient verbalizes clear understanding of this recommendation and states that she will proceed immediately to the emergency department at [facility]. Review of Systems Objective LMP 07/20/2024 (Approximate) Physical Exam Assessment and Plan Allergies As of Date: 09/24/2024 Noted Allergy Reaction EYE DROPS (TETRAHYDROZOLINE) 03/17/2024 2 - Rash Date Reviewed: 08/21/2024 Reviewed by: Becky Sharma LPN - Fully Assessed Primary Visit Diagnosis:Right upper quadrant abdominal pain [R10.11] Prescriptions as of 09/24/2024 - levothyroxine (SYNTHROID) 100 mcg tablet Take 1 tablet by mouth every afternoon. - benzonatate (TESSALON PERLES) 100 mg capsule Take 2 capsules by mouth three times a day as needed for cough. - norethindrone (AYGESTIN) 5 mg tablet - PNV no.95/ferrous fum/folic ac ( ORAL) Take by mouth. Problem List As Of Date: 09/24/2024 (None) Encounter Status:Closed by BARBRA TORREZ on 09/24/24 Normal [facility] Carbon dioxide, total [Moles /volume] in Central venous bloodOrdered By: Khadar Abrams on 09-24-2024 CO2 [Moles/Vol] 22.2 mmol/L 21.0-32.0 [facility] Chloride assayOrdered By: Lev Abrams on 09-24-2024 Chloride [Moles/Vol] 102 mmol/L 98-108 [facility] Comprehensive Metabolic Prof ilon 09-24-2024 Albumin [Mass/Vol] 3.9 g/dL Normal 3.5-5.0 [facility] Comment on above: Performed By: #### L 509.4006, L900.0098, L3410.9992, L3890.6301, BTS, L3890.6006, L3890.6102, L501.9520, L509.8002, L501.9985, L506.0400, L100.0100 #### [facility] [place], [place], [id number] Albumin/Globulin [Mass ratio] 1.6 {ratio} Normal 0.9-2.4 [facility] Comment on above: Performed By: #### L 509.4006, L900.0098, L3410.9992, L3890.6301, BTS, L3890.6006, L3890.6102, L501.9520, L509.8002, L501.9985, L506.0400, L100.0100 #### [facility] [address] [place], [place], [id number] ALK PHOS 56 U/L Normal 35-104 [facility] Comment on above: Performed By: #### L 509.4006, L900.0098, L3410.9992, L3890.6301, BTS, L3890.6006, L3890.6102, L501.9520, L509.8002, L501.9985, L506.0400, L100.0100 #### [facility] [address] [place], [place], [id number] ALT [Catalytic activity/Vol] 18 U/L Normal <=34 [facility] Comment on above: Performed By: #### L 509.4006, L900.0098, L3410.9992, L3890.6301, BTS, L3890.6006, L3890.6102, L501.9520, L509.8002, L501.9985, L506.0400, L100.0100 #### [facility] [address] [place], [place], [id number] (496) AST [Catalytic activity/Vol] 15 U/L Normal <=31 [facility] Comment on above: Performed By: #### L 509.4006, L900.0098, L3410.9992, L3890.6301, BTS, L3890.6006, L3890.6102, L501.9520, L509.8002, L501.9985, L506.0400, L100.0100 #### [facility] [address] [place], [address] Bilirubin [Mass/Vol] 0.44 mg/dL Normal 0.00-1.30 [facility] Comment on above: Performed By: #### L 509.4006, L900.0098, L3410.9992, L3890.6301, BTS, L3890.6006, L3890.6102, L501.9520, L509.8002, L501.9985, L506.0400, L100.0100 #### [facility] [address] [place], [address] BUN/CRE 14.6 RATIO Normal 10-20 [facility] Comment on above: Performed By: #### L 509.4006, L900.0098, L3410.9992, L3890.6301, BTS, L3890.6006, L3890.6102, L501.9520, L509.8002, L501.9985, L506.0400, L100.0100 #### [facility] [address] [place], [address] Calcium [Mass/Vol] 8.7 mg/dL Normal 7.6-11.0 [facility] Comment on above: Performed By: #### L 509.4006, L900.0098, L3410.9992, L3890.6301, BTS, L3890.6006, L3890.6102, L501.9520, L509.8002, L501.9985, L506.0400, L100.0100 #### [facility] [address] [place], [address] Chloride [Moles/Vol] 102 mmol/L Normal 98-108 [facility] Comment on above: Performed By: #### L 509.4006, L900.0098, L3410.9992, L3890.6301, BTS, L3890.6006, L3890.6102, L501.9520, L509.8002, L501.9985, L506.0400, L100.0100 #### [facility] [address] [place], [place], [id number] (365) CO2 [Moles/Vol] 22.2 mmol/L Normal 21.0-32.0 [facility] Comment on above: Performed By: #### L 509.4006, L900.0098, L3410.9992, L3890.6301, BTS, L3890.6006, L3890.6102, L501.9520, L509.8002, L501.9985, L506.0400, L100.0100 #### [facility] [address] [place], [place], [id number] (905) Creatinine [Mass/Vol] 0.81 mg/dL Normal 0.70-1.20 [facility] Comment on above: Performed By: #### L 509.4006, L900.0098, L3410.9992, L3890.6301, BTS, L3890.6006, L3890.6102, L501.9520, L509.8002, L501.9985, L506.0400, L100.0100 #### [facility] [address] [place], [place], [id number] (256) ECRCL 131.91 ml/min Normal 50-250 [facility] Comment on above: Performed By: #### L 509.4006, L900.0098, L3410.9992, L3890.6301, BTS, L3890.6006, L3890.6102, L501.9520, L509.8002, L501.9985, L506.0400, L100.0100 #### [facility] [address] [place], [place], [id number] (943) GAP 13 Normal 5-15 [facility] Comment on above: Performed By: #### L 509.4006, L900.0098, L3410.9992, L3890.6301, BTS, L3890.6006, L3890.6102, L501.9520, L509.8002, L501.9985, L506.0400, L100.0100 #### [facility] [address] [place], [address] GFR/1.73 sq M.predicted among non-blacks MDRD (S/P/Bld) [Vol rate/Area] 100 mL/min/{1.73_m2} Normal >60 [facility] Comment on above: Result Comment: mL/m in/1.73m2 CKD-EPI Creatinine Equation (2020) Performed By: #### L 509.4006, L900.0098, L3410.9992, L3890.6301, BTS, L3890.6006, L3890.6102, L501.9520, L509.8002, L501.9985, L506.0400, L100.0100 #### [facility] [address] [place], [address] Globulin (S) [Mass/Vol] 2.5 g/dL Normal 2.2-4.2 [facility] Comment on above: Performed By: #### L 509.4006, L900.0098, L3410.9992, L3890.6301, BTS, L3890.6006, L3890.6102, L501.9520, L509.8002, L501.9985, L506.0400, L100.0100 #### [facility] [address] [place], [address] Glucose [Mass/Vol] 115 mg/dL High 70-99 [facility] Comment on above: Performed By: #### L 509.4006, L900.0098, L3410.9992, L3890.6301, BTS, L3890.6006, L3890.6102, L501.9520, L509.8002, L501.9985, L506.0400, L100.0100 #### [facility] [address] [place], [address] Potassium [Moles/Vol] 3.2 mmol/L Low 3.3-5.1 [facility] Comment on above: Performed By: #### L 509.4006, L900.0098, L3410.9992, L3890.6301, BTS, L3890.6006, L3890.6102, L501.9520, L509.8002, L501.9985, L506.0400, L100.0100 #### [facility] [address] [place], [address] Sodium [Moles/Vol] 137 mmol/L Normal 133-145 [facility] Comment on above: Performed By: #### L 509.4006, L900.0098, L3410.9992, L3890.6301, BTS, L3890.6006, L3890.6102, L501.9520, L509.8002, L501.9985, L506.0400, L100.0100 #### [facility] [address] [place], [address] T PROT 6.4 g/dL Normal 5.9-8.4 [facility] Comment on above: Performed By: #### L 509.4006, L900.0098, L3410.9992, L3890.6301, BTS, L3890.6006, L3890.6102, L501.9520, L509.8002, L501.9985, L506.0400, L100.0100 #### [facility] [address] [place], [address] Urea nitrogen [Mass/Vol] 12 mg/dL Normal 4-19 [facility] Comment on above: Performed By: #### L 509.4006, L900.0098, L3410.9992, L3890.6301, BTS, L3890.6006, L3890.6102, L501.9520, L509.8002, L501.9985, L506.0400, L100.0100 #### [facility] [address] [place], [address] Emergency Department Summary on 09-24-2024 Emergency Department Summary [facility] Medical Records Department [address] [place] [address] Emergency Department Summary 09/24/24 MR#: [id number] Acct: [id number] Name: SKYE BRISCOE Rep #: [id number] : 1995 29 From: Khadar Abrams DO PCP: Dr. Stacey Santacruz MD Status:DEP ER Location: ED HPI History of Present Illness Chief Complaint: Flank Pain Informant: patient Onset/Context/Timing Onset: Today Context: Gradual Onset Timing: Continuous Quality: Pinching Location: Right flank Worsened by: Deep breathing, bending, walking Relieved by: Rest Narrative Narrative: Patient presents with right flank pain that began this morning. Patient is that is gradually gotten worse. Patient states it is over her entire right side. Patient describes it as pinching. Patient states that later in the day she started feeling tired. Patient states she took a nap and felt better after that. Patient states that her fatigue has gotten worse again. Patient also admits to some facial flushing and states her face feels hot. Patient denies any nausea or vomiting. Patient denies any dysuria or hematuria. [facility] Medical History Ovarian cyst Active labor at term Infertility Thyroid disorder Superficial varicosities Macrosomia Obesity affecting Supervision of normal first Anxiety Home Medications ???Medication ???Instructions ???Recorded ???Last Taken ???Type levothyroxine 100 mcg tablet 100 mcg PO DAILY #30 tabs 12/27/23 Unknown Rx (Synthroid) ycnhaxpt-xrx-Jz-FA 1 mg 1 tab PO DAILY 09/03/24 Unknown Hi story tablet hydrocodone-acetaminoph en 5-325mg 1 tab PO Q6H PRN PRN Pain 3 days 09/24/24 Unknown Rx 5mg-325mg #10 TABLETS Allergy/AdvReac Type Severity Reaction Status Date / Time tetracycline Allergy Mild Hives Verified 09/24/24 13:33 Family History Father Diabetes CAD (coronary artery disease) Hypertension Surgical History Delivery by section Social History adopted: No household members: spouse current occupational status: 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 pets and animals: Yes (avoid litter box) pets and animals: cat(s), dog(s) and fish Smoking Status: Never smoker alcohol intake: current alcohol intake frequency: a few times a month details: not while substance use type: does not use do you feel safe at home: Yes additional social history: Spouse-Jigar BRITTNY ROS ED Constitutional Constitutional ED: Reports fever(s) and subjective; Denies chills Eyes Eyes: Denies blurry vision or change in vision ENT ENT ED: Denies rhinorrhea or sore throat Cardiovascular Cardiovascular: Denies chest pain or palpitations Respiratory/Chest Respiratory/Chest: Denies cough or dyspnea Gastrointestinal Gastrointestinal: Reports abdominal pain; Denies nausea or vomiting Genitourinary Genitourinary ED: Denies dysuria or hematuria Musculoskeletal Musculoskeletal: Reports back pain and neck pain Integumentary Denies abscess or rash Neurologic Neurologic: Denies headache(s) or weakness Allergic/Immunologic Allergic/Immunologic ED: Denies mouth swelling or urticaria EXAM Physical Exam Const Vital Signs: 09/24/24 13:28 09/24/24 15:28 Temperature 98.4 F Temperature Source Temporal Pulse Rate 122 H 82 Respiratory Rate 17 14 Blood Pressure 158/94 H 137/76 H Blood Pressure Mean 115 96 Pulse Ox 99 98 Oxygen Delivery Method Room Air Room Air Positive well nourished and well developed Constitutional Narrative: BMI is 44.1 General Appearance ED: well developed and NAD HEENT Reports moist mucous membranes Neck supple and no JVD Resp normal respiratory effort and clear to auscultation bilaterally Cardio regular rhythm Rate: tachycardic GI non-distended Palpation: soft and tender RLQ and RUQ Back/Spine General Back: CVA tenderness right Extremity normal to inspection Neuro oriented x3, CN's II-XII intact bilaterally and no sensory deficits noted Sensorium / Orientation: alert Motor Exam: strength 5/5 throughout Psych mental status grossly normal MDM MDM MDM Narrative Medical decision making narrative: Differential diagnosis includes ureteral calculus, pyelonephritis, diverticulitis, colitis, cholecystitis, cholelithiasis, peptic ulcer disease, duodenal ulcer, and viral illness. CT scan of the abdomen and pelvis will be obtained to assess for pyelonephritis, ureteral calculus, cholecystitis, and cholelithiasis. CBC will be obtained to assess for leukocytosis and anemia. Comprehensive metaboli (more content not included)... Normal [facility] Eosinophil percentageOrdered By: Khadar Abrams on 09-24-2024 Eosinophils/100 WBC (Bld) 0.7 % 0-5 [facility] Epithelial cells.squamous LM Ql (Urine sed)Ordered By: Khadar Abrams on 09-24-2024 Epithelial cells.squamous LM.HPF (Urine sed) [#/Area] 0 /[HPF] 5-10 [facility] Erythrocyte distribution wid th ratioOrdered By: Khadar Abrams on 09-24-2024 Erythrocyte distribution width (RBC) [Ratio] 13.4 % 11.6-14.6 [facility] Erythrocyte distribution wid th standard deviationOrdered By: Khadar Abrams on 09-24-2024 Erythrocyte distribution width (RBC) [Entitic vol] 41.1 fL 35.1-43.9 [facility] Erythrocyte distribution width (RBC) [Ratio] 41.1 fl 35.1-43.9 [facility] Estimation of creatinine shelli aranceOrdered By: Khadar Abrams on 09-24-2024 Estimated Creatinine Clearance Calc 131.91 ml/min 50-250 [facility] GFR/1.73 sq M.predicted adelso g non-blacks MDRD (S/P/Bld) [Vol rate/Area]Ordered By: Khadar Abrams on 09-24-2024 Estimated GFR (MDRD) Non-Af Amer 100 >60 [facility] Comment on above: mL/min/1.73m2 CKD-EP I Creatinine Equation (2020) Glomerular filtration rate ( GFR) estimation/1.73 sq m using serum, plasma, or whole bOrdered By: Khadar Abrams on 09-24-2024 GFR/1.73 sq M.predicted among non-blacks MDRD (S/P/Bld) [Vol rate/Area] 100 mL/min/{1.73_m2} >60 [facility] Comment on above: mL/min/1.73m2 CKD-EP I Creatinine Equation (2020) Glucose Ql (U)Ordered By: Lev Abrams on 09-24-2024 Urine Glucose (UA) Normal mg/dl Normal [facility] Hematocrit Auto (Bld) [Volum e fraction]Ordered By: Khadar Abrams on 09-24-2024 Hematocrit (Bld) [Volume fraction] 40.4 % 37-47 [facility] Hemoglobin measurementOrdere d By: Khadar Abrams on 09-24-2024 Hemoglobin (Bld) [Mass/Vol] 13.6 g/dL 12.0-15.0 [facility] Immature granulocytes/100 WB C Auto (Bld)Ordered By: Khadar Abrams on 09-24-2024 Immature granulocytes/100 WBC (Bld) 0.400 % 0.0-0.9 [facility] Comment on above: IG% - Immature Granu locytes (promyelocytes, myelocytes and metamyelocytes) > 1% indicates that a LEFT SHIFT is Present. Ketones Test strip Ql (U)Ord ered By: Khadar Abrams on 09-24-2024 Ketones Ql (U) Negative Negative [facility] - Chemistry and C hemistry - challengeOrdered By: Khadar Abrams on 09-24-2024 AST [Catalytic activity/Vol] 15 U/L <32 [facility] Lipaseon 09-24-2024 Lipase [Catalytic activity/Vol] 19 U/L Normal 13-75 [facility] Comment on above: Result Comment: Basil polanco note: LIPASE revised reference range effective 22. New Lipase methodology. Expected to produce lower values than the previous assay method. NEW Reference Range: 13 - 75 U/L Performed By: #### L 509.4006, L900.0098, L3410.9992, L3890.6301, BTS, L3890.6006, L3890.6102, L501.9520, L509.8002, L501.9985, L506.0400, L100.0100 #### [facility] [place], [address] Lipase measurementOrdered By : Khadar Abrams on 09-24-2024 Lipase [Catalytic activity/Vol] 19 U/L 13-75 [facility] Comment on above: Please note:LIPASE r evised reference range effective 22. New Lipase methodology. Expected to produce lower values than the previous assay method. NEW Reference Range: 13 - 75 U/L Lymphocytes Auto (Unsp spec) [#/Vol]Ordered By: Khadar Abrams on 09-24-2024 Lymphocytes (Bld) [#/Vol] 1.70 10*3/uL 0.83-4.51 [facility] Lymphocytes/100 WBC Auto (Un sp spec)Ordered By: Khadar Abrams on 09-24-2024 Lymphocytes/100 WBC (Bld) 15.3 % Low 19-41 [facility] MCV (mean corpuscular volume ) determinationOrdered By: Khadar Abrams on 09-24-2024 MCV (RBC) [Entitic vol] 84.3 fL 81-99 [facility] Mean corpuscular hemoglobin (MCH) determinationOrdered By: Khadar Abrams on 09-24-2024 MCH (RBC) [Entitic mass] 28.4 pg 27.0-32.0 [facility] Mean corpuscular hemoglobin concentration (MCHC) determinationOrdered By: Khadar Abrams on 09-24-2024 MCHC (RBC) [Mass/Vol] 33.7 g/dL 32-36 [facility] Mean platelet volume determi nationOrdered By: Khadar Abrams on 09-24-2024 Platelet mean volume (Bld) [Entitic vol] 9.9 fL 6.2-12.0 [facility] Microscopic analysis of urin e for red blood cells (RBC)Ordered By: Khadar Abrams on 09-24-2024 Microscopic analysis of urine for red blood cells (RBC) 5-10 SEEN /hpf 0-5 [facility] Urine RBC 5-10 SEEN /hpf 0-5 [facility] Monocyte percentageOrdered B y: Khadar Abrams on 09-24-2024 Monocytes/100 WBC (Bld) 9.3 % 0-10 [facility] Mucus LM Ql (Urine sed)Order ed By: Khadar Abrams on 09-24-2024 Mucus Ql (Urine sed) 0 SEEN /hpf [facility] Neutrophil percentageOrdered By: Khadar Abrams on 09-24-2024 Neutrophils/100 WBC (Bld) 73.9 % High 47-70 [facility] Nitrite Test strip Ql (U)Ord ered By: Khadar Abrams on 09-24-2024 Nitrite Ql (U) Positive High Negative [facility] Nucleated red blood cell per centageOrdered By: Khadar Abrams on 09-24-2024 Nucleated RBC/100 WBC (Bld) [Ratio] 0 % 0-5 [facility] Platelet countOrdered By: Lev Abrams on 09-24-2024 Platelets (Bld) [#/Vol] 228 10*3/uL 150-450 [facility] Potassium (Unsp spec) [Mass/ Vol]Ordered By: Khadar Abrams on 09-24-2024 Potassium [Moles/Vol] 3.2 mmol/L Low 3.3-5.1 [facility] Potassium measurement (mass/ volume)Ordered By: Khadar Abrams on 09-24-2024 Potassium (Unsp spec) [Mass/Vol] 3.2 mmol/L Low 3.3-5.1 [facility] ,Serum,hCG Quali.on 09-24-2024 HCG, SERUM QUAL Negative Normal [facility] Comment on above: Performed By: #### L 509.4006, L900.0098, L3410.9992, L3890.6301, BTS, L3890.6006, L3890.6102, L501.9520, L509.8002, L501.9985, L506.0400, L100.0100 #### [facility] [address] [place] [address]. [place], [address] Protein Test strip Ql (U)Ord ered By: Khadar Abrams on 09-24-2024 Protein Ql (U) 30 mg/dl High Negative [facility] RBC Auto (Bld) [#/Vol]Ordere d By: Khadar Abrams on 09-24-2024 RBC (Bld) [#/Vol] 4.79 10*6/uL 4.2-5.4 [facility] Serum beta-hCG test, qualita tiveOrdered By: Khadar Abrams on 09-24-2024 Beta HCG ( test) Ql Negative [facility] Serum creatinine measurement (mass/volume)Ordered By: Khadar Abrams on 09-24-2024 Creatinine [Mass/Vol] 0.81 mg/dL 0.70-1.20 [facility] Serum globulin measurementOr dered By: Khadar Abrams on 09-24-2024 Globulin (S) [Mass/Vol] 2.5 g/dL 2.2-4.2 [facility] Serum glucose measurement (m ass/volume)Ordered By: Khadar Abrams on 09-24-2024 Glucose [Mass/Vol] 115 mg/dL High 70-99 [facility] Serum or plasma alanine guerrier otransferase (ALT) measurementOrdered By: Khadar Abrams on 09-24-2024 ALT [Catalytic activity/Vol] 18 U/L <35 [facility] Serum or plasma albumin stuart urement (mass/volume)Ordered By: Khadar Abrams on 09-24-2024 Albumin [Mass/Vol] 3.9 g/dL 3.5-5.0 [facility] Serum or plasma albumin/glob ulin mass ratioOrdered By: Khadar Abrams on 09-24-2024 Albumin/Globulin [Mass ratio] 1.6 {ratio} 0.9-2.4 [facility] Serum or plasma alkaline venkata sphatase measurementOrdered By: Khadar Abrams 09-24-2024 ALP [Catalytic activity/Vol] 56 U/L 35-104 [facility] Serum or plasma calcium stuart urement (mass/volume)Ordered By: Khadar Abrams on 09-24-2024 Calcium [Mass/Vol] 8.7 mg/dL 7.6-11.0 [facility] Serum or plasma urea nitroge n measurement (mass/volume)Ordered By: Khadar Abrams on 09-24-2024 Urea nitrogen [Mass/Vol] 12 mg/dL 4-19 [facility] Sodium levelOrdered By: Khadar Abrams on 09-24-2024 Sodium [Moles/Vol] 137 mmol/L 133-145 [facility] Squamous epithelial cells de tection in urine sediment by light microscopyOrdered By: Khadar Abrams on 09-24-2024 Epithelial cells.squamous LM Ql (Urine sed) 0-5 SEEN /hpf 5-10 [facility] Total proteinOrdered By: Deb Abrams on 09-24-2024 Protein [Mass/Vol] 6.4 g/dL 5.9-8.4 [facility] Urinalysis, Completeon 09-24 RBC 5-10 SEEN Normal 0-5 [facility] Comment on above: Order Comment: CLEAN CATCH Performed By: #### L 509.4006, L900.0098, L3410.9992, L3890.6301, BTS, L3890.6006, L3890.6102, L501.9520, L509.8002, L501.9985, L506.0400, L100.0100 #### [facility] [address] [place], [address] WBC 0-5 SEEN Normal 0-5 [facility] Comment on above: Order Comment: CLEAN CATCH Performed By: #### L 509.4006, L900.0098, L3410.9992, L3890.6301, BTS, L3890.6006, L3890.6102, L501.9520, L509.8002, L501.9985, L506.0400, L100.0100 #### [facility] [address] [place], [place], [id number] (406) BACTERIA 2+ /hpf Normal None Seen [facility] Comment on above: Order Comment: CLEAN CATCH Performed By: #### L 509.4006, L900.0098, L3410.9992, L3890.6301, BTS, L3890.6006, L3890.6102, L501.9520, L509.8002, L501.9985, L506.0400, L100.0100 #### [facility] [address] [place], [place], [id number] EPI,SQUAMOUS 0-5 SEEN Normal 5-10 [facility] Comment on above: Order Comment: CLEAN CATCH Performed By: #### L 509.4006, L900.0098, L3410.9992, L3890.6301, BTS, L3890.6006, L3890.6102, L501.9520, L509.8002, L501.9985, L506.0400, L100.0100 #### [facility] [address] [place], [address] Mucus Ql (Urine sed) 0 SEEN Normal [facility] Comment on above: Order Comment: CLEAN CATCH Performed By: #### L 509.4006, L900.0098, L3410.9992, L3890.6301, BTS, L3890.6006, L3890.6102, L501.9520, L509.8002, L501.9985, L506.0400, L100.0100 #### [facility] [address] [place], [place], [id number] Urine blood detectionOrdered By: Khadar Abrams on 09-24-2024 Urine Occult Blood 50 /ul High Negative [facility] Urine clarityOrdered By: Deb Abrams on 09-24-2024 Clarity (U) Clear Clear [facility] Urine color determinationOrd ered By: Khadar Abrams on 09-24-2024 Color (U) Yellow Yellow [facility] Urine glucose detectionOrder ed By: Khadar Abrams on 09-24-2024 Glucose Ql (U) Normal mg/dl Normal [facility] Urine leukocyte esterase det ection by dipstickOrdered By: Khadar Abrams on 09-24-2024 Leukocyte esterase Test strip Ql (U) Negative Negative [facility] Urine pHOrdered By: Khadar kong on 09-24-2024 pH (U) 6.5 [pH] 5.0 - 8.0 [facility] Urine sediment bacteria coun t by microscopy (number/high power field)Ordered By: Khadar Abrams on 09-24-2024 Bacteria LM.HPF (Urine sed) [#/Area] 2 /[HPF] None Seen [facility] Urine specific gravity measu rementOrdered By: Khadar Abrams on 09-24-2024 Specific gravity (U) [Rel density] 1.010 1.002-1.030 [facility] Urine urobilinogen measureme ntOrdered By: Khadar Abrams on 09-24-2024 Urobilinogen Ql (U) Normal mg/dl Normal [facility] Urobilinogen Ql (U)Ordered B y: Khadar Abrams on 09-24-2024 Urine Urobilinogen Normal mg/dl Normal [facility] White blood cell (WBC) count Ordered By: Khadar Abrams on 09-24-2024 WBC (Bld) [#/Vol] 11.1 10*3/uL High 4.4-11.0 [facility] White blood cell countOrdere d By: Kahdar Abrams on 09-24-2024 Urine WBC 0-5 SEEN /hpf 0-5 [facility] White blood cell count 0-5 SEEN /hpf 0-5 [facility] Quick Sketch Artist Office Visit Reporton 09-07-2024 Quick Sketch Artist Office Visit Report [facility] [address], [address] [place] [address] OFFICE VISIT Date of Service: 09/07/24 MR#: [id number] Acct: [id number] Name: SKYE BRISCOE Rep #: [id number] : 1995 Provider: Dr. Prudence Dumont DO Age/Sex: 29/F [place] [facility] [place]: Signed Intake Vital Signs 09/03/24 08:00 09/07/24 13:48 Height 5 ft 5 in 5 ft 5 in Weight: 274 lb 4 oz BMI 45.6 BP 123/88 H Intake Visit Reasons: miscarriage follow up Event Promoter Required: No Allergies No Known Allergies Allergy (Verified 09/07/24 13:49) Medications ???Medication ???Instructions ???Recorded ???Confirmed ???Type levothyroxine 100 mcg tablet 100 mcg PO DAILY #30 tabs 12/27/23 09/07/24 Rx (Synthroid) efjlhxvj-imb-Kw-FA 1 mg 1 tab PO DAILY 09/03/24 09/07/24 H istory tablet Post menopausal: No : No PFSH Medical History Ovarian cyst Active labor at term Infertility Thyroid disorder Superficial varicosities Macrosomia Obesity affecting Supervision of normal first Anxiety Surgical History Delivery by section Family History Father Diabetes CAD (coronary artery disease) Hypertension Social History adopted: No household members: spouse current occupational status: employed current occupation: [employer] pets and animals: Yes (avoid litter box) pets and animals: cat(s), dog(s) and fish Smoking Status: Never smoker alcohol intake: current alcohol intake frequency: a few times a month details: not while substance use type: does not use do you feel safe at home: Yes additional social history: Spouse-Jigar HPI miscarriage follow up Details: SKYE BRISCOE is a 29 year old who presents for follow up ER visit this weekend. She is status post complete . ultrasound shows 7 mm endometrium. She is still spotting a little bit but denies cramping, fevers, chills. History 2 Elective abortions Hx Para 1 Spontaneous abortions Hx # Term Pregnancies Ectopic pregnancies Hx # Pregnancies Multiple births # of living children 1 Past Pregnancies Del. Date Name GA/Weeks Outcome Route Bth Weight Infant Gen Labor Lgth Anesthesia Del Locatn Provider FOB 05/21/22 [place] 38 live - full term Male spinal [facility] Je nnifer Radha Kimball Delivery Date: 05/21/22 Last Updated by: Tiesha Dominguez primary section for macrosomia ROS Const ROS Unobtainable: All systems reviewed are unremarkable except as noted in H Resp Resp: Reports system reviewed and no additional complaints, except as documented; Denies cough GI GI: Reports as per HPI Psych Psych: Reports system reviewed and no additional complaints, except as documented Exam Const General: cooperative, healthy appearing, comfortable and no acute distress Resp Effort Inspection: normal respiratory effort Skin General: no rashes or lesions noted Psych Appearance: grossly normal Speech and Movement: speech and movement normal Coding Level of Care Code Off vis,est,level 3 Diagnoses Complete O03.9 Assessment and Plan Assessment and Plan (1) Complete : Status: Acute Plan: no further treatment needed FMLA papers needed RTO as needed. 09/07/24 1425 Date Prudence Law DO Cosigner Signature: Date (if applicable) CC: Normal [facility] Transvaginal w/Preg USon Transvaginal w/Preg US [facility] [address] [place] [id number] Transvaginal w/Preg US MR#: [id number] Acct: [id number] Name: SKYE BRISCOE Rep #: [id number] : 1995 F 29 From: Barbra Kline MD PCP: Dr. Stacey Santacruz MD Status: REG CLI Study: Transvaginal w/Preg US Date of Exam: 09/07/24 Exam# [id number] Ordering Dr: Prudence Law DO PROCEDURE: TRANSVAGINAL W/PREG US REASON FOR EXAM: miscarriage fu. Reportedly, 7 weeks and 0 days by LMP. Beta hCG not provided, previously reported as 13 on 09/01/2024. TECHNIQUE: Transvaginal pelvic ultrasound COMPARISON: 09/03/2024. FINDINGS: Measurements: Uterus: 9.0 x 5.9 x 4.9 cm. Endometrial Thickness: 8 mm. Right Ovary: 2.7 x 1.7 x 1.6 cm. Left Ovary: 3.9 x 2.6 x 1.9 cm. Uterus: Unremarkable. Tiny cervical likely nabothian cyst. Endometrium: Unremarkable, homogeneously echogenic. No abnormal vascularity detected. Right ovary: Unremarkable. Left ovary: Unremarkable. Other adnexal findings: None. Free fluid: None visualized US/Transvaginal w/Preg US IMPRESSION: 1. No intrauterine is identified. In the setting of a positive test, unless prior outside imaging has previously established an intrauterine location, findings technically represent of unknown location with differential considerations including normal early , nonviable , completed miscarriage, or nonvisualized ectopic. Recommend continued close clinical and imaging follow-up including serial beta HCG. 2. Endometrial thickness has decreased, now within normal limits, and without detected abnormal vascularity, arguing against retained products of conception. 3. Additional description as above. Reading Location: [id number] CC: Dr. Stacey Santacruz MD; Dr. Prudence Law DO Pressure Sealer And Tester: Signed Normal [facility] Absolute lymphocyte countOrd ered By: Ernst Garcia on 09-03-2024 Lymphocytes Auto (Unsp spec) [#/Vol] 1.83 10*3/uL 0.83-4.51 [facility] Absolute neutrophil countOrd ered By: Ernst Garcia on 09-03-2024 Neutrophils (Bld) [#/Vol] 5.6 10*3/uL 2.0-7.7 [facility] Automated lymphocyte count a s percentage of total leukocytesOrdered By: Ernst Garcia on 09-03-2024 Lymphocytes/100 WBC Auto (Unsp spec) 22.3 % 19-41 [facility] [id number] 09-03-2024 A1 CELL Not performed Normal [facility] Comment on above: Result Comment: Canc elllyn via OM: Ordered Performed By: #### L 100.0100, L500.4050, B882-1, L700.8000 ####[facility] [id number] [place], [address] ABO and Rh group Nom (Bld) Test Not Performed Normal [facility] Comment on above: Result Comment: Canc elled via OM: MD Ordered Performed By: #### L 100.0100, L500.4050, B882-1, L700.8000 ####[facility] [id number] [place], [address] ANTI A Not performed Normal [facility] Comment on above: Result Comment: Canc elled via OM: MD Ordered Performed By: #### L 100.0100, L500.4050, B882-1, L700.8000 ####[facility] [address] [place], [address] ANTI B Not performed Normal [facility] Comment on above: Result Comment: Canc elled via OM: MD Ordered Performed By: #### L 100.0100, L500.4050, B882-1, L700.8000 ####[facility] [address] [place], [address] ANTI D Not performed Normal [facility] Comment on above: Result Comment: Canc elled via OM: MD Ordered Performed By: #### L 100.0100, L500.4050, B882-1, L700.8000 ####[facility] [address] [place], [address] B CELLS Not performed Normal [facility] Comment on above: Result Comment: Canc elled via OM: MD Ordered Performed By: #### L 100.0100, L500.4050, B882-1, L700.8000 ####[facility] [address] [place], [address] BUN/creatinine ratioOrdered By: Ernst Garcia on 09-03-2024 Urea nitrogen/Creatinine [Mass ratio] 17.0 mg/mg 10-20 [facility] Basophil percentageOrdered B y: Ernst Garcia on 09-03-2024 Basophils/100 WBC (Bld) 0.2 % 0-1 [facility] Bilirubin, totalOrdered By: Ernst Garcia on 09-03-2024 Bilirubin [Mass/Vol] 0.20 mg/dL 0.00-1.30 [facility] CBC W/Diff, Automatedon 08-09 Absolute Lymph 1.83 X10 3/uL Normal 0.83-4.51 [facility] Comment on above: Performed By: #### L 100.0100, L500.4050, B882-1, L700.8000 ####[facility] [address] [place], [address] Absolute Neut 5.6 X10 3/uL Normal 2.0-7.7 [facility] Comment on above: Performed By: #### L 100.0100, L500.4050, B882-1, L700.8000 ####[facility] [address] [place], [address] Basophils/100 WBC (Bld) 0.2 % Normal 0-1 [facility] Comment on above: Performed By: #### L 100.0100, L500.4050, B882-1, L700.8000 ####[facility] [address] [place], [address] Eosinophils/100 WBC (Bld) 2.2 % Normal 0-5 [facility] Comment on above: Performed By: #### L 100.0100, L500.4050, B882-1, L700.8000 ####[facility] [address] [place], [address] Erythrocyte distribution width (RBC) [Ratio] 14.0 % Normal 11.6-14.6 [facility] Comment on above: Performed By: #### L 100.0100, L500.4050, B882-1, L700.8000 ####[facility] [address] [place], [address] Hematocrit (Bld) [Volume fraction] 42.5 % Normal 37-47 [facility] Comment on above: Performed By: #### L 100.0100, L500.4050, B882-1, L700.8000 ####[facility] [address], [address] Hemoglobin (Bld) [Mass/Vol] 14.4 g/dL Normal 12.0-15.0 [facility] Comment on above: Performed By: #### L 100.0100, L500.4050, B882-1, L700.8000 ####[facility] [address], [address] IG% 0.200 Normal 0.0-0.9 [facility] Comment on above: Result Comment: IG% - Immature Granulocytes (promyelocytes, myelocytes and metamyelocytes) > 1% indicates that a LEFT SHIFT is Present. Performed By: #### L 100.0100, L500.4050, B882-1, L700.8000 ####[facility] [address] [place], [address] Lymphocytes/100 WBC (Bld) 22.3 % Normal 19-41 [facility] Comment on above: Performed By: #### L 100.0100, L500.4050, B882-1, L700.8000 ####[facility] [address] [place], [address] MCH (RBC) [Entitic mass] 28.6 pg Normal 27.0-32.0 [facility] Comment on above: Performed By: #### L 100.0100, L500.4050, B882-1, L700.8000 ####[facility] [address] [place], [address] MCHC (RBC) [Mass/Vol] 33.9 g/dL Normal 32-36 [facility] Comment on above: Performed By: #### L 100.0100, L500.4050, B882-1, L700.8000 ####[facility] [address] [place], [address] MCV (RBC) [Entitic vol] 84.5 fL Normal 81-99 [facility] Comment on above: Performed By: #### L 100.0100, L500.4050, B882-1, L700.8000 ####[facility] [address] [place], [address] Monocytes/100 WBC (Bld) 6.5 % Normal 0-10 [facility] Comment on above: Performed By: #### L 100.0100, L500.4050, B882-1, L700.8000 ####[facility] [address] [place], [address] Neutrophils/100 WBC (Bld) 68.6 % Normal 47-70 [facility] Comment on above: Performed By: #### L 100.0100, L500.4050, B882-1, L700.8000 ####[facility] [address] [place], [address] Nucleated RBC (Bld) [#/Vol] 0 10*3/uL Normal 0-5 [facility] Comment on above: Performed By: #### L 100.0100, L500.4050, B882-1, L700.8000 ####[facility] [address] [place], [address] Platelet mean volume (Bld) [Entitic vol] 9.8 fL Normal 6.2-12.0 [facility] Comment on above: Performed By: #### L 100.0100, L500.4050, B882-1, L700.8000 ####[facility] [address] [place], [address] Platelets (Bld) [#/Vol] 231 10*3/uL Normal 150-450 [facility] Comment on above: Performed By: #### L 100.0100, L500.4050, B882-1, L700.8000 ####[facility] [address] [place], [address] RBC (Bld) [#/Vol] 5.03 10*6/uL Normal 4.2-5.4 [facility] Comment on above: Performed By: #### L 100.0100, L500.4050, B882-1, L700.8000 ####[facility] [address] [place], [address] RDW SD 42.9 fl Normal 35.1-43.9 [facility] Comment on above: Performed By: #### L 100.0100, L500.4050, B882-1, L700.8000 ####[facility] [address] [place], [address] WBC (Bld) [#/Vol] 8.2 10*3/uL Normal 4.4-11.0 [facility] Comment on above: Performed By: #### L 100.0100, L500.4050, B882-1, L700.8000 ####[facility] [address] [place], [address] Carbon dioxide measurementOr dered By: Ernst Garcia on 09-03-2024 CO2 [Moles/Vol] 22.7 mmol/L 22.0-29.0 [facility] Chloride measurementOrdered By: Ernst Garcia on 09-03-2024 Chloride [Moles/Vol] 108 mmol/L 96-108 [facility] Comprehensive Metabolic Prof ilon 09-03-2024 Albumin [Mass/Vol] 3.8 g/dL Normal 3.5-5.0 [facility] Comment on above: Performed By: #### L 100.0100, L500.4050, B882-1, L700.8000 ####[facility] [address] [place], [address] Albumin/Globulin [Mass ratio] 1.5 {ratio} Normal 0.9-2.4 [facility] Comment on above: Performed By: #### L 100.0100, L500.4050, B882-1, L700.8000 ####[facility] [address] [place], [address] ALK PHOS 60 U/L Normal 35-104 [facility] Comment on above: Performed By: #### L 100.0100, L500.4050, B882-1, L700.8000 ####[facility] [address] [place], [address] ALT [Catalytic activity/Vol] 22 U/L Normal <=34 [facility] Comment on above: Performed By: #### L 100.0100, L500.4050, B882-1, L700.8000 ####[facility] [address] [place], [address] Anion gap [Moles/Vol] 11 mmol/L Normal 5-15 [facility] Comment on above: Performed By: #### L 100.0100, L500.4050, B882-1, L700.8000 ####[facility] [address] [place], [address] AST [Catalytic activity/Vol] 15 U/L Normal <=31 [facility] Comment on above: Performed By: #### L 100.0100, L500.4050, B882-1, L700.8000 ####[facility] [address] [place], [address] Bilirubin [Mass/Vol] 0.20 mg/dL Normal 0.00-1.30 [facility] Comment on above: Performed By: #### L 100.0100, L500.4050, B882-1, L700.8000 ####[facility] [address] [place], [address] BUN/CRE 17.0 RATIO Normal 10-20 [facility] Comment on above: Performed By: #### L 100.0100, L500.4050, B882-1, L700.8000 ####[facility] [address] [place], [address] Calcium [Mass/Vol] 8.9 mg/dL Normal 7.6-11.0 [facility] Comment on above: Performed By: #### L 100.0100, L500.4050, B882-1, L700.8000 ####[facility] [address] [place], [address] Chloride [Moles/Vol] 108 mmol/L Normal 96-108 [facility] Comment on above: Performed By: #### L 100.0100, L500.4050, B882-1, L700.8000 ####[facility] [address] [place], [address] CO2 [Moles/Vol] 22.7 mmol/L Normal 22.0-29.0 [facility] Comment on above: Performed By: #### L 100.0100, L500.4050, B882-1, L700.8000 ####[facility] [address] [place], [address] Creatinine [Mass/Vol] 0.7 mg/dL Normal 0.6-1.0 [facility] Comment on above: Performed By: #### L 100.0100, L500.4050, B882-1, L700.8000 ####[facility] [address] [place], [address] ECRCL 155.67 ml/min Normal [facility] Comment on above: Performed By: #### L 100.0100, L500.4050, B882-1, L700.8000 ####[facility] [address] [place], [address] GFR/1.73 sq M.predicted among non-blacks MDRD (S/P/Bld) [Vol rate/Area] 120 mL/min/{1.73_m2} Normal >60 [facility] Comment on above: Result Comment: mL/m in/1.73m2 CKD-EPI Creatinine Equation (2020) Performed By: #### L 100.0100, L500.4050, B882-1, L700.8000 ####[facility] [address] [place], [address] Globulin (S) [Mass/Vol] 2.5 g/dL Normal 2.2-4.2 [facility] Comment on above: Performed By: #### L 100.0100, L500.4050, B882-1, L700.8000 ####[facility] [address] [place], [address] Glucose [Mass/Vol] 142 mg/dL High 70-99 [facility] Comment on above: Performed By: #### L 100.0100, L500.4050, B882-1, L700.8000 ####[facility] [address] [place], [address] Potassium [Moles/Vol] 3.5 mmol/L Normal 3.3-5.1 [facility] Comment on above: Performed By: #### L 100.0100, L500.4050, B882-1, L700.8000 ####[facility] [address] [place], [address] Sodium [Moles/Vol] 141 mmol/L Normal 133-145 [facility] Comment on above: Performed By: #### L 100.0100, L500.4050, B882-1, L700.8000 ####[facility] [address] [place], [address] T PROT 6.3 g/dL Normal 5.9-8.4 [facility] Comment on above: Performed By: #### L 100.0100, L500.4050, B882-1, L700.8000 ####[facility] [address] [place], [address] Urea nitrogen [Mass/Vol] 12 mg/dL Normal 4-19 [facility] Comment on above: Performed By: #### L 100.0100, L500.4050, B882-1, L700.8000 ####[facility] [address] [place], [address] Creatinine [Moles/Vol]Ordere d By: Ernst Garcia on 09-03-2024 Creatinine [Mass/Vol] 0.7 mg/dL 0.6-1.0 [facility] Emergency Department Summary on 09-03-2024 Emergency Department Summary [facility] Medical Records Department [address] [place] [address] Emergency Department Summary 09/03/24 MR#: [id number] Acct: [id number] Name: SKYE BRISCOE Rep #: [id number] : 1995 29 From: Ernst Garcia MD PCP: Dr. Stacey Santacruz MD Status:REG ER Location: ED HPI HPI - Female History of Present Illness Chief Complaint: Vag Bld, Preg Narrative Narrative: 29-year-old female, G2, P1 at approximately 5 weeks gestation presents with vaginal bleeding and cramping that she has had for the last 5 to 6 days. She believes that she is undergoing a miscarriage. She went to her [employer] in [place] on Saturday, 4 days ago and had quantitative beta- hCG levels drawn. It was low at 25. She started having increased bleeding on Saturday, 2 days ago. She states that she had a quantitative measurement drawn on Saturday and it was low at 13. Since then, the bleeding has increased over the last day. She is having heavier flow than her normal menses. She is experiencing vaginal and pelvic cramping and passing tissue and clots. She denies any chest pain or shortness of breath, may have started feeling lightheaded yesterday. She presents wanting to be checked because of the heavy vaginal bleeding. PFSH PFS Medical History Ovarian cyst Active labor at term Infertility Thyroid disorder Superficial varicosities Macrosomia Obesity affecting Supervision of normal first Anxiety Home Medications ???Medication ???Instructions ???Recorded ???Last Taken ???Type levothyroxine 100 mcg tablet 100 mcg PO DAILY #30 tabs 12/27/23 Unknown Rx (Synthroid) oxycodone-acetaminophen 5 mg-325 1 tab PO Q6H PRN pain 3 days #12 0 09/03/24 Unknown Rx mg tablet (Percocet) tabs [id number] 1 mg 1 tab PO DAILY 09/03/24 Unknown Hi story tablet Allergy/AdvReac Type Severity Reaction Status Date / Time No Known Allergies Allergy Verified 09/03/24 08:02 Family History Father Diabetes CAD (coronary artery disease) Hypertension Surgical History Delivery by section Social History adopted: No household members: spouse 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 No chest pain or shortness of breath. No current lightheadedness or dizziness. No nausea or vomiting. EXAM Physical Exam Narrative Exam Narrative: Afebrile. Vital signs noted. Nontoxic-appearing. Cardiovascular examination reveals mild tachycardia 104 bpm. Lungs are clear to auscultation bilaterally. Abdomen is soft with mild tenderness to palpation in the pelvic/suprapubic area. Neurological examination nonfocal and nonlateralizing. Const Vital Signs: 09/03/24 08:00 09/03/24 10:34 Temperature 97.5 F L Temperature Source Temporal Pulse Rate 104 H 80 Respiratory Rate 16 Blood Pressure 146/95 H 139/122 H Blood Pressure Mean 112 127 Pulse Ox 95 98 Oxygen Delivery Method Room Air Room Air MDM MDM MDM Narrative Medical decision making narrative: Differential diagnosis includes but not limited to miscarriage versus retained products of conception versus anemia requiring transfusion from miscarriage. I did review her diagnostic studies in the EMR and she did have a quantitative measurement of 25 and then at 13. I will obtain a level today as well. I do not feel that ABO Rh is indicated because she has results indicating that she has a positive from last year. Chaperoned pelvic examination will be performed as well. I reviewed her laboratory work and she has normal white count of 8.2 with hemoglobin normal at 14.4 and hematocrit 42.5, platelet count normal at 231. LFTs are grossly unremarkable, BUN normal at 12 and creatinine 0.7. hCG quantitative measurement is 6, down from 13 when compared to prior labs. I reviewed the radiology report of the ultrasound which shows a thickened endometrium but no intrauterine gestation. As she had downtrending beta-hCG's which continues to trend downward, it was thought that this was a nonviable previously and that she is undergoing miscarriage, I discussed patient with Dr. Reyes. She would l (more content not included)... Normal [facility] Eosinophil percentageOrdered By: Ernst Garcia on 09-03-2024 Eosinophils/100 WBC (Bld) 2.2 % 0-5 [facility] Erythrocyte distribution wid th ratioOrdered By: Ernst Garcia on 09-03-2024 Erythrocyte distribution width (RBC) [Ratio] 14.0 % 11.6-14.6 [facility] Erythrocyte distribution wid th standard deviationOrdered By: Ernst Garcia on 09-03-2024 Erythrocyte distribution width (RBC) [Entitic vol] 42.9 fL 35.1-43.9 [facility] Erythrocyte distribution width (RBC) [Ratio] 42.9 fl 35.1-43.9 [facility] Estimation of creatinine shelli aranceOrdered By: Ernst Garcia on 09-03-2024 Estimated Creatinine Clearance Calc 155.67 ml/min [facility] GFR/1.73 sq M.predicted adelso g non-blacks MDRD (S/P/Bld) [Vol rate/Area]Ordered By: Enrst Garcia on 09-03-2024 Estimated GFR (MDRD) Non-Af Amer 120 >60 [facility] Comment on above: mL/min/1.73m2 CKD-EP I Creatinine Equation (2020) Glomerular filtration rate ( GFR) estimation/1.73 sq m using serum, plasma, or whole bOrdered By: Ernst Garcia on 09-03-2024 GFR/1.73 sq M.predicted among non-blacks MDRD (S/P/Bld) [Vol rate/Area] 120 mL/min/{1.73_m2} >60 [facility] Comment on above: mL/min/1.73m2 CKD-EP I Creatinine Equation (2020) HCG ( test) QlOrder ed By: Ernst Garcia on 09-03-2024 Human Chorionic Gonadotropin, Quant 6 mIU/mL <9 [facility] Comment on above: Gestational Age0.2-1 Week: 5-50 mIU/mL1-2 Weeks: 50-500 mIU/mL2-3 Weeks: 100-5000 mIU/mL3-4 Weeks: 500-10,000 mIU/mL4-5 Weeks:1000-50,000 mIU/mL5-6 Weeks: 10,000-100,000 mIU/mL6-8 Weeks: 15,000-200,000 mIU/mL2-3 Months:10,000-100,000 mIU/mL Hematocrit Auto (Bld) [Volum e fraction]Ordered By: Ernst Garcia on 09-03-2024 Hematocrit (Bld) [Volume fraction] 42.5 % 37-47 [facility] Hemoglobin measurementOrdere d By: Ernst Garcia on 09-03-2024 Hemoglobin (Bld) [Mass/Vol] 14.4 g/dL 12.0-15.0 [facility] Immature granulocytes/100 WB C Auto (Bld)Ordered By: Ernst Garcia on 09-03-2024 Immature granulocytes/100 WBC (Bld) 0.200 % 0.0-0.9 [facility] Comment on above: IG% - Immature Granu locytes (promyelocytes, myelocytes and metamyelocytes) > 1% indicates that a LEFT SHIFT is Present. Laboratory - Chemistry and C hemistry - challengeOrdered By: Ernst Garcia on 09-03-2024 AST [Catalytic activity/Vol] 15 U/L <32 [facility] Lymphocytes Auto (Unsp spec) [#/Vol]Ordered By: Ernst Garcia on 09-03-2024 Lymphocytes (Bld) [#/Vol] 1.83 10*3/uL 0.83-4.51 [facility] Lymphocytes/100 WBC Auto (Un sp spec)Ordered By: Ernst Garcia on 09-03-2024 Lymphocytes/100 WBC (Bld) 22.3 % 19-41 [facility] MCV (mean corpuscular volume ) determinationOrdered By: Ernst Garcia on 09-03-2024 MCV (RBC) [Entitic vol] 84.5 fL 81-99 [facility] Mean corpuscular hemoglobin (MCH) determinationOrdered By: Ernst Garcia on 09-03-2024 MCH (RBC) [Entitic mass] 28.6 pg 27.0-32.0 [facility] Mean corpuscular hemoglobin concentration (MCHC) determinationOrdered By: Ernst Garcia on 09-03-2024 MCHC (RBC) [Mass/Vol] 33.9 g/dL 32-36 [facility] Mean platelet volume determi nationOrdered By: Ernst Garcia on 09-03-2024 Platelet mean volume (Bld) [Entitic vol] 9.8 fL 6.2-12.0 [facility] Monocyte percentageOrdered B y: Ernst Garcia on 09-03-2024 Monocytes/100 WBC (Bld) 6.5 % 0-10 [facility] Neutrophil percentageOrdered By: Ernst Garcia on 09-03-2024 Neutrophils/100 WBC (Bld) 68.6 % 47-70 [facility] Nucleated red blood cell per centageOrdered By: Ernst Garcia on 09-03-2024 Nucleated RBC/100 WBC (Bld) [Ratio] 0 % 0-5 [facility] Platelet countOrdered By: Arjun Garcia on 09-03-2024 Platelets (Bld) [#/Vol] 231 10*3/uL 150-450 [facility] RBC Auto (Bld) [#/Vol]Ordere d By: Ernst Garcia on 09-03-2024 RBC (Bld) [#/Vol] 5.03 10*6/uL 4.2-5.4 [facility] Serum globulin measurementOr dered By: Ernst Garcia on 09-03-2024 Globulin (S) [Mass/Vol] 2.5 g/dL 2.2-4.2 [facility] Serum glucose measurement (m ass/volume)Ordered By: Ernst Garcia on 09-03-2024 Glucose [Mass/Vol] 142 mg/dL High 70-99 [facility] Serum human chorionic gonado tropin detection for pregnancyOrdered By: Ernst Garcia on 09-03-2024 HCG ( test) Ql 6 mIU/mL <9 [facility] Comment on above: Gestational Age0.2-1 Week: 5-50 mIU/mL1-2 Weeks: 50-500 mIU/mL2-3 Weeks: 100-5000 mIU/mL3-4 Weeks: 500-10,000 mIU/mL4-5 Weeks:1000-50,000 mIU/mL5-6 Weeks: 10,000-100,000 mIU/mL6-8 Weeks: 15,000-200,000 mIU/mL2-3 Months:10,000-100,000 mIU/mL Serum or plasma alanine guerrier otransferase (ALT) measurementOrdered By: Ernst Garcia on 09-03-2024 ALT [Catalytic activity/Vol] 22 U/L <35 [facility] Serum or plasma albumin stuart urement (mass/volume)Ordered By: Ernst Garcia on 09-03-2024 Albumin [Mass/Vol] 3.8 g/dL 3.5-5.0 [facility] Serum or plasma albumin/glob ulin mass ratioOrdered By: Ernst Garcia on 09-03-2024 Albumin/Globulin [Mass ratio] 1.5 {ratio} 0.9-2.4 [facility] Serum or plasma alkaline venkata sphatase measurementOrdered By: Ernst Garcia on 09-03-2024 ALP [Catalytic activity/Vol] 60 U/L 35-104 [facility] Serum or plasma anion gap de termination (moles/volume)Ordered By: Ernst Garcia on 09-03-2024 Anion gap [Moles/Vol] 11 mmol/L 5-15 [facility] Serum or plasma calcium stuart urement (mass/volume)Ordered By: Ernst Garcia on 09-03-2024 Calcium [Mass/Vol] 8.9 mg/dL 7.6-11.0 [facility] Serum or plasma creatinine m easurement (moles/volume)Ordered By: Ernst Garcia on 09-03-2024 Creatinine [Moles/Vol] 0.7 mg/dL 0.6-1.0 [facility] Serum or plasma potassium me asurementOrdered By: Ernst Garcia on 09-03-2024 Potassium [Moles/Vol] 3.5 mmol/L 3.3-5.1 [facility] Serum or plasma sodium measu rement (moles/volume)Ordered By: Ernst Garcia on 09-03-2024 Sodium [Moles/Vol] 141 mmol/L 133-145 [facility] Serum or plasma urea nitroge n measurement (mass/volume)Ordered By: Ernst Garcia on 09-03-2024 Urea nitrogen [Mass/Vol] 12 mg/dL 4-19 [facility] Total proteinOrdered By: Eden Garcia on 09-03-2024 Protein [Mass/Vol] 6.3 g/dL 5.9-8.4 [facility] Transvaginal w/Preg USon Transvaginal w/Preg [facility] Services [address] [place] [address] Transvaginal w/Preg US MR#: [id number] Acct: [id number] Name: SKYE BRISCOE Rep #: [id number] : 1995 F 29 From: Bryan smith MD PCP: Dr. Stacey Santacruz MD Status: REG ER Study: Transvaginal w/Preg US Date of Exam: 09/03/24 Exam# [id number] Ordering Dr: Ernst Garcia MD PROCEDURE: TRANSVAGINAL W/PREG US REASON FOR EXAM: Heavy bleeding. Missed . COMPARISON: None. FINDINGS: Comments: LMP: July 20, 2024. Number of Gestational Sacs: Nonvisualized. Gestational Sac Shape: Normal Yolk Sac: Nonvisualized. Placenta: Nonvisualized Amniotic Fluid Volume: Nonvisualized Uterine Abnormalities: Maternal uterus is unremarkable. Uterus measures 9.6 cm x 5.5 cm x 4.3 cm. There is thickening of the endometrium measuring 2.1 cm. Retained products of conception should be ruled out. Ovaries / Adnexa: Right ovary measures 3.4 cm x 2.4 cm x 2.1 cm. Left ovary was not visualized. US/Transvaginal w/Preg US IMPRESSION: No intrauterine gestation is seen. The endometrium is thickened measuring 2.1 cm. Retained products of conception should be ruled out. Reading Location: [facility] CC: Dr. Ernst Garcia MD; Dr. Stacey Santacruz MD Pressure Sealer And Tester: Signed Normal [facility] White blood cell (WBC) count Ordered By: Ernst Garcia on 09-03-2024 WBC (Bld) [#/Vol] 8.2 10*3/uL 4.4-11.0 [facility] hCG Titer Quant., Serumon HCG QUANT. 6 mIU/mL Normal <9 non-preg [facility] Comment on above: Result Comment: Gest ational Age 0.2-1 Week: 5-50 mIU/mL 1-2 Weeks: 50-500 mIU/mL 2-3 Weeks: 100-5000 mIU/mL 3-4 Weeks: 500-10,000 mIU/mL 4-5 Weeks:1000-50,000 mIU/mL 5-6 Weeks: 10,000-100,000 mIU/mL 6-8 Weeks: 15,000-200,000 mIU/mL 2-3 Months:10,000-100,000 mIU/mL Performed By: #### L 100.0100, L500.4050, B882-1, L700.8000 ####[facility] [address] [place], [address] HCG ( test) QlOrder ed By: Berna Keane on 09-02-2024 Human Chorionic Gonadotropin, Quant 13 mIU/mL High <9 [facility] Comment on above: Gestational Age0.2-1 Week: 5-50 mIU/mL1-2 Weeks: 50-500 mIU/mL2-3 Weeks: 100-5000 mIU/mL3-4 Weeks: 500-10,000 mIU/mL4-5 Weeks:1000-50,000 mIU/mL5-6 Weeks: 10,000-100,000 mIU/mL6-8 Weeks: 15,000-200,000 mIU/mL2-3 Months:10,000-100,000 mIU/mL Serum human chorionic gonado tropin detection for pregnancyOrdered By: Berna Keane on 09-02-2024 HCG ( test) Ql 13 mIU/mL High <9 [facility] Comment on above: Gestational Age0.2-1 Week: 5-50 mIU/mL1-2 Weeks: 50-500 mIU/mL2-3 Weeks: 100-5000 mIU/mL3-4 Weeks: 500-10,000 mIU/mL4-5 Weeks:1000-50,000 mIU/mL5-6 Weeks: 10,000-100,000 mIU/mL6-8 Weeks: 15,000-200,000 mIU/mL2-3 Months:10,000-100,000 mIU/mL hCG Titer Quant., Serumon HCG QUANT. 13 mIU/mL High <9 non-preg [facility] Comment on above: Result Comment: Gest ational Age 0.2-1 Week: 5-50 mIU/mL 1-2 Weeks: 50-500 mIU/mL 2-3 Weeks: 100-5000 mIU/mL 3-4 Weeks: 500-10,000 mIU/mL 4-5 Weeks:1000-50,000 mIU/mL 5-6 Weeks: 10,000-100,000 mIU/mL 6-8 Weeks: 15,000-200,000 mIU/mL 2-3 Months:10,000-100,000 mIU/mL Performed By: #### L 509.4006, L900.0098, L3410.9992, L3890.6301, BTS, L3890.6006, L3890.6102, L501.9520, L509.8002, L501.9985, L506.0400, L100.0100 #### [facility] [address] [place], [place], [id number] HCG ( test) QlOrder ed By: Berna Keane on 08-31-2024 Human Chorionic Gonadotropin, Quant 25 mIU/mL High <4 [facility] Comment on above: hCG levels with Gest ational AgeGestational Age hCG mIU/mL (IU/L)0.2 - 1 week 5 - 501-2 weeks 50 - 5002-3 weeks 100 - 03332-7 weeks 500 - 294542-3 weeks 1000 - 118758-7 weeks 23472 - 100,0006-8 weeks 60997 - 200,0002-3 months 20135 - 100,000 Serum human chorionic gonado tropin detection for pregnancyOrdered By: Berna Keane on 08-31-2024 HCG ( test) Ql 25 mIU/mL High <4 [facility] Comment on above: hCG levels with Gest ational AgeGestational Age hCG mIU/mL (IU/L)0.2 - 1 week 5 - 501-2 weeks 50 - 5002-3 weeks 100 - 64080-1 weeks 500 - 396773-2 weeks 1000 - 547039-4 weeks 99797 - 100,0006-8 weeks 63247 - 200,0002-3 months 61003 - 100,000 hCG Titer Quant., Serumon HCG QUANT. 25 mIU/mL High 1-3 [facility] Comment on above: Result Comment: hCG levels with Gestational Age Gestational Age hCG mIU/mL (IU/L) 0.2 - 1 week 5 - 50 1-2 weeks 50 - 500 2-3 weeks 100 - 5000 3-4 weeks 500 - 07905 4-5 weeks 1000 - 60612 5-6 weeks 54712 - 100,000 6-8 weeks 46195 - 200,000 2-3 months 41398 - 100,000 Performed By: #### L 700.8000 #### [facility] [address] [place], [place], [address] Beta HCG ( test) Ql Ordered By: Jocelyn Gomez on 08-26-2024 Serum Test, Qualitative Negative [facility] ,Serum,hCG Quali.on 08-26-2024 HCG, SERUM QUAL Positive Normal [facility] Comment on above: Order Comment: Order Date: 08/26/24Order Info: [id number] - PREGSQUAL Performed By: #### L 700.6800 ####[facility] [address] [facility]. [place], [place], [id number] Serum beta-hCG test, qualita tiveOrdered By: Jocelyn Gomez on 08-26-2024 Beta HCG ( test) Ql Negative [facility] Bacteria Ur Culton 5 Bacteria identified Cx Nom (U) CULTURE, URINE: Mixed microbiota, including predominantly: ORGANISM ID: 1 >=100,000 CFU/ml Escherichia coli ORGANISM ID: 1 (ESCHERICHIA COLI) ANTIBIOTIC INTERPRETATION MARY STATUS REFERENCE RANGE Ampicillin S <=2 F Susceptible <=8 , Intermediate >8 , Resistant >16 Cefazolin S <=4 F Susceptible 0-16 , Intermediate <0 or >16 , Resistant >16 For uncomplicated urinary tract infections, cefazolin results can be used to predict susceptibility or resistance to cephalexin. Ceftriaxone S <=1 F Susceptible <=1 , Intermediate >1 , Resistant >=4 Cefepime S <=1 F Susceptible <=2 , Susceptible-Dose Dependent >2 , Resistant >=16 Ertapenem S <=0.5 F Susceptible <=0.5 , Intermediate >.5 , Resistant >1 Meropenem S <=0.25 F Susceptible <=1 , Intermediate >1 , Resistant >2 Ampicillin/Sulbact S <=2 F Susceptible <=8 , Intermediate >8 , Resistant >16 Piperacillin/Tazobac S <=4 F Susceptible <16 , Susceptible-Dose Dependent >=16 , Resistant >=32 Gentamicin S <=1 F Susceptible <=2 , Intermediate >2 , Resistant >=8 Tobramycin S <=1 F Susceptible <4 , Intermediate >=4 , Resistant >=8 Trimeth sulfameth S <=20 F Susceptible <=40 , Resistant >40 Ciprofloxacin S <=0.25 F Susceptible <0.5 , Intermediate >=.5 , Resistant >=1 Nitrofurantoin S <=16 F Susceptible <=32 , Intermediate >32 , Resistant >64 Abnormal [facility] Comment on above: Performed By: #### 6 30-4 ####[facility] [id number] [place] [id number] [place] CNOVon 08-21-2024 CNOV Office Visit ([facility] ) SKYE BRISCOE ([id number]) 1995 F Date Time Provider Department 08/21/24 4:45 PM [facility] During your visit today, we recorded the following information about you: Temperature Pulse Respiration Blood pressure 99.2 degrees 75/minute 24/minute 144/96 Weight Last Period 124 kg 07/20/24 Martha Hansen APRN.[employer] 08/24/2024 7:45 AM Addendum Subjective Skye Briscoe is a 29 year old female who presents with 9 days of cough, congestion, fatigue. Has right ear pain in the mornings. Cough is productive. Denies fever or shortness of breath. Notes being one day late for period-is trying to conceive. Cough Associated symptoms include ear pain. Pertinent negatives include no chills, no sore throat, no myalgias and no shortness of breath. Ear Pain Associated symptoms include congestion and coughing. Pertinent negatives include no chills, fever, myalgias or sore throat. Skye Briscoe is a 29 year old female who presents with 9 days of cough, congestion, fatigue. Has right ear pain in the mornings. Cough is productive. Denies fever or shortness of breath. Notes being one day late for period-is trying to conceive. Review of Systems Constitutional: Positive for malaise/fatigue. Negative for chills and fever. HENT: Positive for congestion and ear pain. Negative for sore throat. Respiratory: Positive for cough and sputum production. Negative for shortness of breath. Cardiovascular: Negative. Genitourinary: Negative for dysuria, frequency and urgency. Musculoskeletal: Negative for myalgias. BP 144/96 Pulse 75 Temp 37.3 ?C (99.2 ?F) Resp 24 Wt 124 kg (273 lb 5.9 oz) LMP 07/20/2024 (Approximate) SpO2 99% BMI 44.80 kg/m? PAST MEDICAL HISTORY Diagnosis Date Finger fracture Kidney infection PAST SURGICAL HISTORY Procedure Laterality Date NONE ALLERGIES Eye Drops [Tetrahydrozoline] MEDICATIONS levothyroxine (SYNTHROID) 100 mcg tablet Take 1 tablet by mouth every afternoon. PNV no.95/ferrous fum/folic ac ( ORAL) Take by mouth. benzonatate (TESSALON PERLES) 100 mg capsule Take 2 capsules by mouth three times a day as needed for cough. (Patient not taking: Reported on 08/21/2024) norethindrone (AYGESTIN) 5 mg tablet (Patient not taking: Reported on 08/21/2024) FAMILY HISTORY Problem Relation Age of Onset No Known Problems Mother Diabetes Father No Known Problems Sister No Known Problems Brother Diabetes Maternal Grandmother Cancer Maternal Grandfather Skin No Known Problems Paternal Grandmother Diabetes Paternal Grandfather No Known Problems Brother Social History Tobacco Use Smoking status: Never Smokeless tobacco: Never Substance Use Topics Alcohol use: Never Drug use: Never Objective Physical Exam Vitals and nursing note reviewed. Constitutional: General: She is not in acute distress. Appearance: Normal appearance. She is not ill-appearing. HENT: Right Ear: Ear canal and external ear normal. A middle ear effusion is present. Left Ear: Ear canal and external ear normal. Tympanic membrane is injected. Nose: Nose normal. Mouth/Throat: Pharynx: Uvula midline. No oropharyngeal exudate or posterior oropharyngeal erythema. Cardiovascular: Rate and Rhythm: Normal rate and regular rhythm. Heart sounds: Normal heart sounds. Pulmonary: Effort: Pulmonary effort is normal. No respiratory distress. Breath sounds: Normal breath sounds. No wheezing or rales. Musculoskeletal: Cervical back: Neck supple. Lymphadenopathy: Cervical: No cervical adenopathy. Skin: General: Skin is warm and dry. Findings: No erythema or rash. Neurological: Mental Status: She is alert. ASSESSMENT/PLAN: 1. Bacterial sinusitis - ICD9: 473.9, 041.9, ICD10: J32.9, B96.89 (primary diagnosis) - Will begin treatment with as per antibiotic as written, see orders - Supportive care with plenty of fluids, rest, and analgesia prn. - AMOXICILLIN 875 MG-POTASSIUM CLAVULANATE 125 MG TABLET 2. Missed period - ICD9: 626.4, ICD10: N92.6 - UA DIP,URINE HCG (POC) 3. Other acute nonsuppurative otitis media of both ears, recurrence not specified - ICD9: 381.00, ICD10: H65.193 - Will begin treatment with as per antibiotic as written, see orders - Supportive care with plenty of fluids, rest, and analgesia prn. - AMOXICILLIN 875 MG-POTASSIUM CLAVULANATE 125 MG TABLET 4. Fatigue, unspecified type - ICD9: 780.79, ICD10: R53.83 - UA DIP, URINE (POC) - BACTERIAL CULTURE, URINE Office Visit on 08/21/2024 Component Date Value Ref Range Status Urine hCG (POCT) 08/21/2024 Negative Negative Final Location:[facility], [facility], [place], [address] [employer] (POCT) 08/21/2024 Internal QC IN Final GLUCOSE UA (POCT) 08/21/2024 Negative Negative mg/dL Final BILIRUBIN UA (POCT) 08/21/2024 Negative (more content not included)... Normal [facility] UA DIP, URINE (POC)on 2024 BILIRUBIN UA (POCT) Negative Negative [facility] CLARITY UA (POCT) Cloudy [facility] COLOR UA (POCT) Yellow [facility] GLUCOSE UA (POCT) Negative Negative mg/dL [facility] Hemoglobin Ql (U) Negative Negative [facility] Interpretation and review of laboratory results Abnormal [facility] KETONE UA (POCT) Negative Negative mg/dL [facility] LEUKOCYTES UA (POCT) Negative Negative [facility] NITRITE UA (POCT) Positive Abnormal Negative [facility] PH UA (POCT) 7 4.5 - 8.0 [facility] Protein Ql (U) Negative Negative mg/dL [facility] SPECIFIC GRAVITY UA (POCT) 1.02 1.005 - 1.030 [facility] UROBILINOGEN UA (POCT) 0.2 Aiyana l E.U./dL [facility] Location:[address], [address] [facility] POINT OF CARE [facility] UA DIP,URINE HCG (POC)on Beta HCG ( test) Ql (U) Negative Negative [facility] Comment on above: Location:[address], [address] [employer] (POCT) Internal QC [facility] Location:[address], [address] [facility] POINT OF CARE [facility] Abdomen/Pelvis W IV Cont ONL Yon 08-01-2024 Abdomen/Pelvis W IV Cont ONLY [facility] Imaging Services [address] [place], [place] [id number] Abdomen/Pelvis W IV Cont ONLY MR#: [id number] Acct: [id number] Name: HEIDESKYE Rep #: [id number] : 1995 F 29 From: Ernst Griffin MD PCP: Dr. Stacye Santacruz MD Status: REG ER Study: Abdomen/Pelvis W IV Cont ONLY Date of Exam: Exam# [id number] Ordering [place]: [place] [id number] EXAM: CT ABDOMEN AND PELVIS WITH INTRAVENOUS CONTRAST CLINICAL INDICATION: Right lower quadrant abdominal pain. TECHNIQUE: Helically acquired images were obtained of the abdomen and pelvis with intravenous contrast. This CT exam was performed using one or more of the following dose reduction techniques: automated exposure control, adjustment of the mA and/or kV according to patient size, and/or use of iterative reconstruction technique. CONTRAST: IV 100mL Isovue-370 RADIATION DOSE: CTDIvol = 14.63 mGy, DLP = 2091.58 mGy-cm COMPARISON: CT abdomen and pelvis without contrast 06/16/2020. FINDINGS: LOWER THORAX: Unremarkable. Lung bases are clear. No cardiomegaly. No significant pericardial effusion. ABDOMEN: LIVER: Unremarkable. Homogeneous. No focal mass. GALLBLADDER AND BILE DUCTS: Unremarkable. No calcified gallstones. No gallbladder distention or wall edema. No intra- or extrahepatic biliary ductal dilation. PANCREAS: Unremarkable. No focal cystic or solid mass. SPLEEN: Unremarkable. Normal size without focal cystic or solid mass. ADRENALS: Unremarkable. No nodules. KIDNEYS AND URETERS: Focal scarring in the right upper posterior renal parenchyma is presumably from old pyelonephritis. Small 3 mm nonobstructing stone in the right upper renal infundibulum. No right hydronephrosis. No stones or hydronephrosis in the left kidney. STOMACH AND BOWEL: Unremarkable. No stomach or bowel distention. No focal inflammatory change. PELVIS: APPENDIX: Normal appendix. BLADDER: Unremarkable. REPRODUCTIVE: Unremarkable as visualized. Normal anteverted uterus. Mildly prominent right ovary is unchanged. No left adnexal mass or cyst. ABDOMEN and PELVIS: INTRAPERITONEAL SPACE: Unremarkable. No ascites or other fluid collection. No free air. BONES/JOINTS: Unremarkable. No suspicious lytic or blastic abnormality. SOFT TISSUES: Unremarkable. No discrete abdominal or pelvic wall hernia. VASCULATURE: Unremarkable. Abdominal aorta is non-dilated. LYMPH NODES: Unremarkable. No enlarged lymph nodes. CT/Abdomen/Pelvis W IV Cont ONLY IMPRESSION: 1. No acute findings. 2. Mildly prominent right ovary is unchanged. No left adnexal mass or cyst. Electronically Signed: Ernst Griffin MD at 14:26 EST , CC: Dr. Stacey Santacruz MD; Dr. 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: Signed Normal [facility] Absolute neutrophil countOrd ered By: Khadar Abrams on 08-01-2024 Neutrophils (Bld) [#/Vol] 2.9 10*3/uL 2.0-7.7 [facility] Albumin to globulin ratioOrd ered By: Khadar Abrams on 08-01-2024 Albumin/Globulin [Mass ratio] 0.9 {ratio} 0.9-2.4 [facility] Basophil percentageOrdered B y: Khadar Abrams on 08-01-2024 Basophils/100 WBC (Bld) 0.6 % 0-1 [facility] Beta HCG ( test) Ql Ordered By: Khadar Abrams on 08-01-2024 Serum Test, Qualitative Negative [facility] Bilirubin, totalOrdered By: Khadar Abrams on 08-01-2024 Bilirubin [Mass/Vol] 0.40 mg/dL 0.20-1.00 [facility] Comment on above: For patients on eltr ombopag therapy, use of Dimension [place] TBIL is not recommended. Blood urea nitrogen (BUN)/cr eatinine ratioOrdered By: Khadar Abrams on 08-01-2024 Urea nitrogen/Creatinine [Mass ratio] 13.5 mg/mg 10-20 [facility] CBC W/Diff, Automatedon 07-09 Absolute Lymph 2.33 X10 3/uL Normal 0.83-4.51 [facility] Comment on above: Performed By: #### L 700.6800, L500.4050, L100.0100 ####[facility] [address] [place], [place], [id number] Absolute Neut 2.9 X10 3/uL Normal 2.0-7.7 [facility] Comment on above: Performed By: #### L 700.6800, L500.4050, L100.0100 ####[facility] [address] [place], [address] Basophils/100 WBC (Bld) 0.6 % Normal 0-1 [facility] Comment on above: Performed By: #### L 700.6800, L500.4050, L100.0100 ####[facility] [address] [place], [address] Eosinophils/100 WBC (Bld) 3.4 % Normal 0-5 [facility] Comment on above: Performed By: #### L 700.6800, L500.4050, L100.0100 ####[facility] [address] [place], [address] Erythrocyte distribution width (RBC) [Ratio] 13.8 % Normal 11.6-14.6 [facility] Comment on above: Performed By: #### L 700.6800, L500.4050, L100.0100 ####[facility] [address] [place], [address] Hematocrit (Bld) [Volume fraction] 43.8 % Normal 37-47 [facility] Comment on above: Performed By: #### L 700.6800, L500.4050, L100.0100 ####[facility] [address] [place], [address] Hemoglobin (Bld) [Mass/Vol] 14.7 g/dL Normal 12.0-15.0 [facility] Comment on above: Performed By: #### L 700.6800, L500.4050, L100.0100 ####[facility] [address] [place], [address] IG% 0.600 Normal 0.0-0.9 [facility] Comment on above: Result Comment: IG% - Immature Granulocytes (promyelocytes, myelocytes and metamyelocytes) > 1% indicates that a LEFT SHIFT is Present. Performed By: #### L 700.6800, L500.4050, L100.0100 ####[facility] [address] [place], [address] Lymphocytes/100 WBC (Bld) 37.5 % Normal 19-41 [facility] Comment on above: Performed By: #### L 700.6800, L500.4050, L100.0100 ####[facility] [address] [place], [address] MCH (RBC) [Entitic mass] 28.3 pg Normal 27.0-32.0 [facility] Comment on above: Performed By: #### L 700.6800, L500.4050, L100.0100 ####[facility] [address] [place], [address] MCHC (RBC) [Mass/Vol] 33.6 g/dL Normal 32-36 [facility] Comment on above: Performed By: #### L 700.6800, L500.4050, L100.0100 ####[facility] [address] [place], [address] MCV (RBC) [Entitic vol] 84.2 fL Normal 81-99 [facility] Comment on above: Performed By: #### L 700.6800, L500.4050, L100.0100 ####[facility] [address] [place], [address] Monocytes/100 WBC (Bld) 11.1 % High 0-10 [facility] Comment on above: Performed By: #### L 700.6800, L500.4050, L100.0100 ####[facility] [address] [place], [address] Neutrophils/100 WBC (Bld) 46.8 % Low 47-70 [facility] Comment on above: Performed By: #### L 700.6800, L500.4050, L100.0100 ####[facility] [address] [place], [address] Nucleated RBC (Bld) [#/Vol] 0 10*3/uL Normal 0-5 [facility] Comment on above: Performed By: #### L 700.6800, L500.4050, L100.0100 ####[facility] [address] [place], [address] Platelet mean volume (Bld) [Entitic vol] 9.6 fL Normal 6.2-12.0 [facility] Comment on above: Performed By: #### L 700.6800, L500.4050, L100.0100 ####[facility] [address] [place], [address] Platelets (Bld) [#/Vol] 273 10*3/uL Normal 150-450 [facility] Comment on above: Performed By: #### L 700.6800, L500.4050, L100.0100 ####[facility] [address] [place], [address] RBC (Bld) [#/Vol] 5.20 10*6/uL Normal 4.2-5.4 [facility] Comment on above: Performed By: #### L 700.6800, L500.4050, L100.0100 ####[facility] [address] [place], [address] RDW SD 42.5 fl Normal 35.1-43.9 [facility] Comment on above: Performed By: #### L 700.6800, L500.4050, L100.0100 ####[facility] [address] [place], [address] WBC (Bld) [#/Vol] 6.2 10*3/uL Normal 4.4-11.0 [facility] Comment on above: Performed By: #### L 700.6800, L500.4050, L100.0100 ####[facility] [address] [place], [address] CNOVon 08-01-2024 [facility] SKYE BRISCOE ([id number]) 1995 F Date Time Provider Department 08/01/24 10:30 AM JONATHAN WHELAN [facility] During your visit today, we recorded the following information about you: Temperature Pulse Respiration Blood pressure 97.9 degrees 62/minute 16/minute 126/74 Weight 124.2 kg Jonathan Whelan PA 08/01/2024 10:55 AM Signed This note was created using [id number]. Subjective Skye Briscoe is a 29 year old female. HPI 29-year-old female presents for right-sided pelvic pain. Patient states she has had right-sided pelvic pain since yesterday. She states a few weeks ago she had pain on the left side, but that resolved. Patient states that pain comes in waves. She denies any dysuria, hematuria, fevers, vomiting, diarrhea. She states she has had bladder infections in the past. She denies any history of kidney stones. LMP was 07/20/2024. No other complaint. PAST MEDICAL HISTORY Diagnosis Date Finger fracture Kidney infection PAST SURGICAL HISTORY Procedure Laterality Date NONE ALLERGIES Eye Drops [Tetrahydrozoline] MEDICATIONS levothyroxine (SYNTHROID) 100 mcg tablet Take 1 tablet by mouth every afternoon. benzonatate (TESSALON PERLES) 100 mg capsule Take 2 capsules by mouth three times a day as needed for cough. norethindrone (AYGESTIN) 5 mg tablet PNV no.95/ferrous fum/folic ac ( ORAL) Take by mouth. FAMILY HISTORY Problem Relation Age of Onset No Known Problems Mother Diabetes Father No Known Problems Sister No Known Problems Brother Diabetes Maternal Grandmother Cancer Maternal Grandfather Skin No Known Problems Paternal Grandmother Diabetes Paternal Grandfather No Known Problems Brother Social History Tobacco Use Smoking status: Never Smokeless tobacco: Never Substance Use Topics Alcohol use: Never Drug use: Never Review of Systems Constitutional: Negative for chills and fever. HENT: Negative for congestion, ear pain and sore throat. Respiratory: Negative for cough and shortness of breath. Cardiovascular: Negative for chest pain. Gastrointestinal: Negative for diarrhea and vomiting. Genitourinary: Positive for pelvic pain. Objective BP 126/74 Pulse 62 Temp 36.6 ?C (97.9 ?F) Resp 16 Wt 124.2 kg (273 lb 13 oz) LMP 04/09/2024 (Approximate) SpO2 100% BMI 44.87 kg/m? Physical Exam Vitals and nursing note reviewed. Constitutional: General: She is not in acute distress. Appearance: Normal appearance. She is not toxic-appearing. HENT: Nose: Nose normal. Mouth/Throat: Mouth: Mucous membranes are moist. Eyes: Conjunctiva/sclera: Conjunctivae normal. Cardiovascular: Rate and Rhythm: Normal rate and regular rhythm. Pulmonary: Effort: Pulmonary effort is normal. Breath sounds: Normal breath sounds. Abdominal: General: Abdomen is flat. Palpations: Abdomen is soft. Tenderness: There is abdominal tenderness in the right lower quadrant. There is no right CVA tenderness, left CVA tenderness or guarding. Skin: General: Skin is warm and dry. Neurological: Mental Status: She is alert. Assessment and Plan ASSESSMENT/PLAN: 1. Pelvic pain - ICD9: [id number], ICD10: R10.2 - UA DIP, URINE (POC)-trace hematuria -Patient does have significant tenderness over right lower pelvic area/right lower quadrant. At this time, I recommended evaluation in the emergency room for full workup. Urine does reveal trace blood. Discussed possibility of ovarian cyst, ovarian torsion, musculoskeletal, appendicitis, kidney stone. Patient will proceed to the ER for further workup Diagnosis and treatment plan were discussed and questions were answered to the patient's satisfaction. Pt acknowledged understanding of concepts and follow up plan. Specific signs and symptoms that would indicate the need for higher level of care were discussed in detail warranting prompt ER evaluation. SARAH Cuellar Allergies As of Date: 08/01/2024 Noted Allergy Reaction EYE DROPS (TETRAHYDROZOLINE) 03/17/2024 2 - Rash Date Reviewed: 05/02/2024 Reviewed by: Becky Sharma LPN - Fully Assessed Reason for Visit: Pelvic Pain [282] Cmt: right sided pelvic pain x this am, started last week on left side Primary Visit Diagnosis:Pelvic pain [R10.2] Order(s):UA DIP, URINE (POC) [[id number]] Order #: [id number]. #:[id number] Prescriptions as of 08/01/2024 - levothyroxine (SYNTHROID) 100 mcg tablet Take 1 tablet by mouth every afternoon. - benzonatate (TESSALON PERLES) 100 mg capsule Take 2 capsules by mouth three times a day as needed for cough. - norethindrone (AYGESTIN) 5 mg tablet - PNV no.95/ferrous fum/folic ac ( ORAL) Take by mouth. Problem List As Of Date: 08/01/2024 (None) Encounter Status:Closed by JONATHAN WHELAN on 08/01/24 Normal [facility] Carbon dioxide measurementOr dered By: Khadar Abrams on 08-01-2024 CO2 [Moles/Vol] 30.0 mmol/L 21.0-32.0 [facility] Chloride measurementOrdered By: Khadar Abrams on 08-01-2024 Chloride [Moles/Vol] 109 mmol/L High 98-107 [facility] Comprehensive Metabolic Prof ilon 08-01-2024 Albumin [Mass/Vol] 3.5 g/dL Normal 3.2-5.0 [facility] Comment on above: Performed By: #### L 700.8000 #### [facility] [address] [place], [place], [id number] Albumin/Globulin [Mass ratio] 0.9 {ratio} Normal 0.9-2.4 [facility] Comment on above: Performed By: #### L 700.8000 #### [facility] [address] [place], [address] ALK P 69 U/L Normal 45-117 [facility] Comment on above: Performed By: #### L 700.8000 #### [facility] [address] [place], [address] ALT [Catalytic activity/Vol] 29 U/L Normal 13-56 [facility] Comment on above: Performed By: #### L 700.8000 #### [facility] [address] [place], [address] AST [Catalytic activity/Vol] 12 U/L Low 15-37 [facility] Comment on above: Performed By: #### L 700.8000 #### [facility] [address] [place], [address] Bilirubin [Mass/Vol] 0.40 mg/dL Normal 0.20-1.00 [facility] Comment on above: Result Comment: For patients on eltrombopag therapy, use of [employer] [place] TBIL is not recommended. Performed By: #### L 700.8000 #### [facility] [address] [place], [address] BUN/CRE 13.5 RATIO Normal 10-20 [facility] Comment on above: Performed By: #### L 700.8000 #### [facility] [address] [place], [address] CA,Total 8.8 mg/dL Normal 8.5-10.1 [facility] Comment on above: Performed By: #### L 700.8000 #### [facility] [address] [place], [address] Chloride [Moles/Vol] 109 mmol/L High 98-107 [facility] Comment on above: Performed By: #### L 700.8000 #### [facility] [address] [place], [address] CO2 [Moles/Vol] 30.0 mmol/L Normal 21.0-32.0 [facility] Comment on above: Performed By: #### L 700.8000 #### [facility] [address] [place], [address] Creatinine [Mass/Vol] 0.74 mg/dL Normal 0.55-1.02 [facility] Comment on above: Result Comment: The validity of the calculated GFR GFRAA in patients over 70 years has not been determined. Clinical correlation is essential. Performed By: #### L 700.8000 #### [facility] [address] [place], [address] ECRCL 144.07 ml/min Normal [facility] Comment on above: Performed By: #### L 700.8000 #### [facility] [address] [place], [address] EST GFR - AA 118 mL/min Normal >60 [facility] Comment on above: Result Comment: Afri can Mongolian GFR Calc Performed By: #### L 700.8000 #### [facility] [address] [place], [address] GAP 3 Low 5-15 [facility] Comment on above: Performed By: #### L 700.8000 #### [facility] [address] [place], [address] GFR/1.73 sq M.predicted among non-blacks MDRD (S/P/Bld) [Vol rate/Area] 98 mL/min/{1.73_m2} Normal >60 [facility] Comment on above: Result Comment: Non- GFR Calc Performed By: #### L 700.8000 #### [facility] [address] [place], [address] Globulin (S) [Mass/Vol] 3.8 g/dL Normal 2.2-4.2 [facility] Comment on above: Performed By: #### L 700.8000 #### [facility] [address] [place], [address] Glucose [Mass/Vol] 86 mg/dL Normal 74-106 [facility] Comment on above: Performed By: #### L 700.8000 #### [facility] [address] [place], [address] Potassium [Moles/Vol] 3.5 mmol/L Normal 3.5-5.1 [facility] Comment on above: Performed By: #### L 700.8000 #### [facility] [address] [place], [address] Sodium [Moles/Vol] 142 mmol/L Normal 136-145 [facility] Comment on above: Performed By: #### L 700.8000 #### [facility] [address] [place], [address] T PROT 7.3 g/dL Normal 6.4-8.2 [facility] Comment on above: Performed By: #### L 700.8000 #### [facility] [address] [place], [address] Urea nitrogen [Mass/Vol] 10 mg/dL Normal 7-18 [facility] Comment on above: Performed By: #### L 700.8000 #### [facility] [address] [place], [address] Emergency Department Summary on 08-01-2024 Emergency Department Summary [facility] Medical Records Department [address] [place] [address] Emergency Department Summary 08/01/24 MR#: [id number] Acct: [id number] Name: SKYE BRISCOE Rep #: [id number] : 1995 29 From: Khadar Abrams DO PCP: Dr. Stacey Santacruz MD Status:DEP ER Location: ED HPI HPI - GI History of Present Illness Chief Complaint: Abd Pain Abdominal Pain/Flank Pain Onset: Today Context: Sudden Onset Timing: Intermittent Quality: - (Tightness) Location: RLQ Worsened by: Movement and - (Pushing on the right lower abdomen) Relieved by: Remaining Still Nausea/Vomiting/Emesis GI Symptom: Positive for Nausea; Negative for Vomiting Diarrhea/Melena/Hematoc hezia GI Symptom: Negative for Diarrhea, Melena or Hematochezia Associated Symptoms Associated Symptoms: Positive for Hematuria; Negative for Dysuria or Frequency LMP: 07/20/2024 Narrative Narrative: Patient presents with abdominal pain that began today. Patient states it began rather suddenly. Patient states that has been intermittent. Patient describes it as a tightness. Patient states it is mainly over the right lower abdomen. Patient states it is worse with movement and with pushing in the right lower abdomen. Patient states it is better when she is able to remain still. Patient admits to some nausea but denies any vomiting. Patient denies any diarrhea, melena, or hematochezia. Patient admits to some urinary frequency but denies any dysuria. Patient states she went to urgent care and was diagnosed with hematuria there and was referred to the emergency department here. Patient states her last menstrual period was 07/20/2024 but was 2 weeks late at that time. [facility] Medical History Ovarian cyst Active labor at term Infertility Thyroid disorder Superficial varicosities Macrosomia Obesity affecting Supervision of normal first Anxiety Home Medications ???Medication ???Instructions ???Recorded ???Last Taken ???Type levothyroxine 100 mcg tablet 100 mcg PO DAILY #30 tabs 12/27/23 Unknown Rx (Synthroid) Allergy/AdvReac Type Severity Reaction Status Date / Time No Known Allergies Allergy Verified 08/01/24 11:23 Family History Father Diabetes CAD (coronary artery disease) Hypertension Surgical History Delivery by section Social History adopted: No household members: spouse current occupational status: 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 pets and animals: Yes (avoid litter box) pets and animals: cat(s), dog(s) and fish Smoking Status: Never smoker alcohol intake: current alcohol intake frequency: a few times a month details: not while substance use type: does not use do you feel safe at home: Yes additional social history: Spouse-Jigar ROS ROS ED Constitutional Constitutional ED: Reports chills and subjective; Denies fever(s) Eyes Eyes: Denies blurry vision or change in vision ENT ENT ED: Reports rhinorrhea; Denies sore throat Cardiovascular Cardiovascular: Denies chest pain or palpitations Respiratory/Chest Respiratory/Chest: Denies cough or dyspnea Gastrointestinal Gastrointestinal: Reports abdominal pain and nausea; Denies diarrhea, melena or vomiting Genitourinary Genitourinary ED: Reports hematuria and urinary frequency; Denies dysuria Musculoskeletal Musculoskeletal: Denies back pain or neck pain Integumentary Denies abscess or rash Neurologic Neurologic: Denies headache(s) or weakness Allergic/Immunologic Allergic/Immunologic ED: Denies mouth swelling or urticaria EXAM Physical Exam Const Vital Signs: 08/01/24 11:23 08/01/24 13:22 Temperature 98.1 F Temperature Source Oral Pulse Rate 61 63 Respiratory Rate 16 14 Blood Pressure 151/77 H 145/89 H Blood Pressure Mean 101 107 Pulse Ox 100 100 Oxygen Delivery Method Room Air Room Air Positive well nourished and well developed Constitutional Narrative: BMI is 43.9 General Appearance ED: well developed and NAD HEENT Reports moist mucous membranes Neck supple and no JVD Resp normal respiratory effort and clear to auscultation bilaterally Cardio regular rate and regular rhythm GI non-distended Palpation: soft and tender RLQ; Negative for guarding or rebound tenderness present Neuro CN's II-XII intact bilaterally, moves all extremities and no sensory deficits noted Sensorium / Orientation: alert Motor Exam: strength 5/5 throughout Psych mental status grossly normal MDM MDM MDM Narrative Medical decision making narrative: Differential diagnosis includes appendicitis (more content not included)... Normal [facility] Eosinophil percentageOrdered By: Khadar Abrams on 08-01-2024 Eosinophils/100 WBC (Bld) 3.4 % 0-5 [facility] Erythrocyte distribution wid th ratioOrdered By: Khadar Abrams on 08-01-2024 Erythrocyte distribution width (RBC) [Ratio] 13.8 % 11.6-14.6 [facility] Erythrocyte distribution wid th standard deviationOrdered By: Khadar Abrams on 08-01-2024 Erythrocyte distribution width (RBC) [Entitic vol] 42.5 fL 35.1-43.9 [facility] Estimated glomerular filtrat ion rate (GFR) AmericanOrdered By: Khadar Abrams on 08-01-2024 Estimated GFR (MDRD) Amer 118 mL/min >60 [facility] Comment on above: GFR Calc Estimation of creatinine shelli aranceOrdered By: Khadar Abrams on 08-01-2024 Estimated Creatinine Clearance Calc 144.07 ml/min [facility] Glomerular filtration rate ( GFR) estimationOrdered By: Khadar Abrams on 08-01-2024 Estimated GFR (MDRD) Non-Af Amer 98 mL/min >60 [facility] Comment on above: Non- GFR Calc Glucose measurementOrdered B y: Khadar Abrams on 08-01-2024 Glucose [Mass/Vol] 86 mg/dL 74-106 [facility] Hematocrit Auto (Bld) [Volum e fraction]Ordered By: Khadar Abrams on 08-01-2024 Hematocrit (Bld) [Volume fraction] 43.8 % 37-47 [facility] Hemoglobin measurementOrdere d By: Khadar Abrams on 08-01-2024 Hemoglobin (Bld) [Mass/Vol] 14.7 g/dL 12.0-15.0 [facility] Immature granulocytes/100 WB C Auto (Bld)Ordered By: Khadar Abrams on 08-01-2024 Immature granulocytes/100 WBC (Bld) 0.600 % 0.0-0.9 [facility] Comment on above: IG% - Immature Granu locytes (promyelocytes, myelocytes and metamyelocytes) > 1% indicates that a LEFT SHIFT is Present. Laboratory - Chemistry and C hemistry - challengeOrdered By: Khadar Abrams on 08-01-2024 AST [Catalytic activity/Vol] 12 U/L Low 15-37 [facility] Lymphocytes Auto (Unsp spec) [#/Vol]Ordered By: Khadar Abrams on 08-01-2024 Lymphocytes (Bld) [#/Vol] 2.33 10*3/uL 0.83-4.51 [facility] Lymphocytes/100 WBC Auto (Un sp spec)Ordered By: Khadar Abrams on 08-01-2024 Lymphocytes/100 WBC (Bld) 37.5 % 19-41 [facility] MCV (mean corpuscular volume ) determinationOrdered By: Khadar Abrams on 08-01-2024 MCV (RBC) [Entitic vol] 84.2 fL 81-99 [facility] Mean corpuscular hemoglobin (MCH) determinationOrdered By: Khadar Abrams on 08-01-2024 MCH (RBC) [Entitic mass] 28.3 pg 27.0-32.0 [facility] Mean corpuscular hemoglobin concentration (MCHC) determinationOrdered By: Khadar Abrams on 08-01-2024 MCHC (RBC) [Mass/Vol] 33.6 g/dL 32-36 [facility] Mean platelet volume determi nationOrdered By: Khadar Abrams on 08-01-2024 Platelet mean volume (Bld) [Entitic vol] 9.6 fL 6.2-12.0 [facility] Monocyte percentageOrdered B y: Khadar Abrams on 08-01-2024 Monocytes/100 WBC (Bld) 11.1 % High 0-10 [facility] Neutrophil percentageOrdered By: Khadar Abrams on 08-01-2024 Neutrophils/100 WBC (Bld) 46.8 % Low 47-70 [facility] Nucleated red blood cell per centageOrdered By: Khadar Abrams on 08-01-2024 Nucleated RBC/100 WBC (Bld) [Ratio] 0 % 0-5 [facility] Platelet countOrdered By: Lev Abrams on 08-01-2024 Platelets (Bld) [#/Vol] 273 10*3/uL 150-450 [facility] Potassium measurementOrdered By: Khadar Abrams on 08-01-2024 Potassium [Moles/Vol] 3.5 mmol/L 3.5-5.1 [facility] ,Serum,hCG Quali.on 08-01-2024 HCG, SERUM QUAL Negative Normal [facility] Comment on above: Performed By: #### L 700.1140, L500.4050, L100.0100 ####[facility] [address] [place], [address] RBC Auto (Bld) [#/Vol]Ordere d By: Khadar Abrams on 08-01-2024 RBC (Bld) [#/Vol] 5.20 10*6/uL 4.2-5.4 [facility] Serum anion gap measurementO rdered By: Khadar Abrams on 08-01-2024 Anion gap [Moles/Vol] 3 mmol/L Low 5-15 [facility] Serum globulin measurementOr dered By: Khadar Abrams on 08-01-2024 Globulin (S) [Mass/Vol] 3.8 g/dL 2.2-4.2 [facility] Serum or plasma alanine guerrier otransferase (ALT) measurementOrdered By: Khadar Abrams on 08-01-2024 ALT [Catalytic activity/Vol] 29 U/L 13-56 [facility] Serum or plasma albumin stuart urement (mass/volume)Ordered By: Khadar Abrams on 08-01-2024 Albumin [Mass/Vol] 3.5 g/dL 3.2-5.0 [facility] Serum or plasma alkaline venkata sphatase measurementOrdered By: Khadar Abrams on 08-01-2024 ALP [Catalytic activity/Vol] 69 U/L 45-117 [facility] Serum or plasma calcium stuart urement (mass/volume)Ordered By: Khadar Abrams on 08-01-2024 Calcium [Mass/Vol] 8.8 mg/dL 8.5-10.1 [facility] Serum or plasma creatinine m easurement (mass/volume)Ordered By: Khadar Abrams on 08-01-2024 Creatinine [Mass/Vol] 0.74 mg/dL 0.55-1.02 [facility] Comment on above: The validity of the calculated GFR & GFRAA in patients over 70 years has not been determined. Clinical correlation is essential. Serum or plasma urea nitroge n measurement (mass/volume)Ordered By: Khadar Abrams on 08-01-2024 Urea nitrogen [Mass/Vol] 10 mg/dL 7-18 [facility] Sodium levelOrdered By: Khadar Abrams on 08-01-2024 Sodium [Moles/Vol] 142 mmol/L 136-145 [facility] Total proteinOrdered By: Deb Abrams on 08-01-2024 Protein [Mass/Vol] 7.3 g/dL 6.4-8.2 [facility] White blood cell (WBC) count Ordered By: Khadar Abrams on 08-01-2024 WBC (Bld) [#/Vol] 6.2 10*3/uL 4.4-11.0 [facility] HCG ( test) QlOrder ed By: Ashley Mullen on 07-24-2024 Human Chorionic Gonadotropin, Quant < 1 mIU/mL <4 [facility] Comment on above: hCG levels with Gest ational AgeGestational Age hCG mIU/mL (IU/L)0.2 - 1 week 5 - 501-2 weeks 50 - 5002-3 weeks 100 - 15039-0 weeks 500 - 844163-6 weeks 1000 - 021818-1 weeks 05490 - 100,0006-8 weeks 20645 - 200,0002-3 months 00734 - 100,000 hCG Titer Quant., Serumon HCG QUANT. < 1 Normal 1-3 [facility] Comment on above: Result Comment: hCG levels with Gestational Age Gestational Age hCG mIU/mL (IU/L) 0.2 - 1 week 5 - 50 1-2 weeks 50 - 500 2-3 weeks 100 - 5000 3-4 weeks 500 - 14203 4-5 weeks 1000 - 50040 5-6 weeks 10216 - 100,000 6-8 weeks 35121 - 200,000 2-3 months 18098 - 100,000 Performed By: #### L 700.8000 #### [facility] [address] [place] [address], [address] Beta HCG ( test) Ql Ordered By: Stacey Santacruz on 07-13-2024 Serum Test, Qualitative Negative [facility] ,Serum,hCG Quali.on 07-13-2024 HCG, SERUM QUAL Negative Normal [facility] Comment on above: Performed By: #### L 509.4006, L900.0098, L3410.9992, L3890.6301, BTS, L3890.6006, L3890.6102, L501.9520, L509.8002, L501.9985, L506.0400, L100.0100 #### [facility] [place], [address] OVon 05-02-2024 CNOV Office Visit (UCWSTR ) SKYE BRISCOE ([id number]) 1995 F Date Time Provider Department 05/02/24 8:45 AM KIARRA GOODWIN [facility] During your visit today, we recorded the following information about you: Temperature Pulse Respiration Blood pressure 98.6 degrees 72/minute 22/minute 128/78 Weight Last Period 121 kg 04/09/24 Kiarra Goodwin APRN.[employer] 05/02/2024 9:11 AM Signed This note was created using [id number]. Subjective Skye Briscoe is a 29 year old female. 29 year female with PMH presents for illness. Acute onset one week ago + cough Goes between productive and non productive +chills +nasal congestion +ear pressure +sore throat Denies fever Denies dyspnea Denies CP Son here for similar +exposure to pneumonia Denies tobacco usage The history is provided by the patient. 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 Cough This is a new problem. The current episode started more than 1 week ago. The problem occurs constantly. The problem has been gradually worsening. Cough characteristics: productive and non productive. There has been no fever. Associated symptoms include ear congestion, ear pain, rhinorrhea, sore throat and wheezing. Pertinent negatives include no chest pain, no chills, no sweats, no weight loss, no headaches, no myalgias, no shortness of breath and no eye redness. She has tried nothing for the symptoms. The treatment provided no relief. She is not a smoker. Her past medical history does not include bronchitis, pneumonia, bronchiectasis, COPD, emphysema or asthma. PAST MEDICAL HISTORY Diagnosis Date Finger fracture Kidney infection PAST SURGICAL HISTORY Procedure Laterality Date NONE ALLERGIES Eye Drops [Tetrahydrozoline] MEDICATIONS levothyroxine (SYNTHROID) 100 mcg tablet Take 1 tablet by mouth every afternoon. PNV no.95/ferrous fum/folic ac ( ORAL) Take by mouth. azithromycin (ZITHROMAX Z-IRVIN) 250 mg tablet Take 2 tablets day one, then, 1 tablet daily until gone. benzonatate (TESSALON PERLES) 100 mg capsule Take 2 capsules by mouth three times a day as needed for cough. norethindrone (AYGESTIN) 5 mg tablet FAMILY HISTORY Problem Relation Age of Onset No Known Problems Mother Diabetes Father No Known Problems Sister No Known Problems Brother Diabetes Maternal Grandmother Cancer Maternal Grandfather Skin No Known Problems Paternal Grandmother Diabetes Paternal Grandfather No Known Problems Brother Social History Tobacco Use Smoking status: Never Smokeless tobacco: Never Substance Use Topics Alcohol use: Never Drug use: Never Review of Systems Constitutional: Positive for fatigue. Negative for chills and weight loss. HENT: Positive for congestion, ear pain, rhinorrhea and sore throat. Eyes: Negative for redness. Respiratory: Positive for cough and wheezing. Negative for shortness of breath. Cardiovascular: Negative for chest pain. Gastrointestinal: Negative for abdominal pain, diarrhea, nausea and vomiting. Musculoskeletal: Negative for myalgias. Skin: Negative for color change, pallor, rash and wound. Allergic/Immunologic: Negative for environmental allergies, food allergies and immunocompromised state. Neurological: Negative for headaches. Hematological: Negative for adenopathy. Does not bruise/bleed easily. Psychiatric/Behavioral: Negative for agitation and behavioral problems. Objective BP 128/78 Pulse 72 Temp 37 ?C (98.6 ?F) Resp 22 Wt 121 kg (266 lb 12.1 oz) LMP 04/09/2024 (Approximate) SpO2 98% BMI 43.72 kg/m? Physical Exam Vitals and nursing note reviewed. Constitutional: General: She is not in acute distress. Appearance: Normal appearance. She is normal weight. She is not ill-appearing, toxic-appearing or diaphoretic. HENT: Head: Normocephalic and atraumatic. Right Ear: Ear canal and external ear normal. Left Ear: Ear canal and external ear normal. Ears: Comments: Left TM erythematous and bulging Nose: Rhinorrhea present. No congestion. Mouth/Throat: Mouth: Mucous membranes are moist. Pharynx: Posterior oropharyngeal erythema present. No oropharyngeal exudate. Eyes: General: Right eye: No discharge. Left eye: No discharge. Extraocular Movements: Extraocular movements intact. Conjunctiva/sclera: Conjunctivae normal. Pupils: Pupils are equal, round, and reactive to light. Cardiovascular: Rate and Rhythm: Normal rate and regular rhythm. Pulses: Normal pulses. Heart sounds: Normal heart sounds. No murmur heard. No friction rub. Pulmonary: Effort: Pulmonary effort is normal. No respiratory distress. Breath sounds: No stridor. Rhonchi present. No wheezing or rales. Chest: Chest wall: No tenderness. Abdominal: General: Abdomen is flat. There is no distension. Palpations: Abdomen is soft. There is no mass. Tenderness: There is no abdominal te (more content not included)... Normal [facility] CNOVon 03-17-2024 CNOV Office Visit (UCTR ) SKYE BRISCOE ([id number]) 1995 F Date Time Provider Department 03/17/24 3:45 PM JONATHAN WHELAN [facility] During your visit today, we recorded the following information about you: Temperature Pulse Respiration Blood pressure 98.5 degrees 76/minute 18/minute 126/84 Weight Last Period 121 kg 03/10/24 Jonathan Whelan PA 03/17/2024 3:33 PM Signed This note was created using Rong360riter. Subjective Skye Briscoe is a 29 year old female. HPI 29-year-old female presents for left ear pain, pressure, swollen lymph node behind the left ear. Patient states she has had left ear pain and pressure for a couple of days. She has had a little bit of sinus congestion recently which she attributed to allergies. States she noticed that she had a swollen lump behind her left ear yesterday. It is slightly painful to touch. She has not had any fevers, cough, sore throat, difficulty swallowing or breathing. No other complaint. Review of Systems Constitutional: Negative for chills and fever. HENT: Positive for ear pain. Negative for congestion and sore throat. Respiratory: Negative for cough and shortness of breath. Cardiovascular: Negative for chest pain. Gastrointestinal: Negative for diarrhea and vomiting. Objective BP 126/84 Pulse 76 Temp 36.9 ?C (98.5 ?F) Resp 18 Wt 121 kg (266 lb 12.1 oz) LMP 03/10/2024 (Exact Date) SpO2 97% BMI 43.72 kg/m? Physical Exam Vitals and nursing note reviewed. Constitutional: General: She is not in acute distress. Appearance: Normal appearance. She is not toxic-appearing. HENT: Left Ear: A middle ear effusion is present. Tympanic membrane is erythematous. Nose: Nose normal. Mouth/Throat: Mouth: Mucous membranes are moist. Eyes: Conjunctiva/sclera: Conjunctivae normal. Cardiovascular: Rate and Rhythm: Normal rate and regular rhythm. Pulmonary: Effort: Pulmonary effort is normal. Breath sounds: Normal breath sounds. Lymphadenopathy: Head: Left side of head: Posterior auricular adenopathy present. Skin: General: Skin is warm and dry. Neurological: Mental Status: She is alert. Assessment and Plan ASSESSMENT/PLAN: 1. Acute otitis media, left - ICD9: 382.9, ICD10: H66.92 (primary diagnosis) - Will begin treatment with Amoxicillin for 7 days - Supportive care with plenty of fluids, rest, and analgesia prn. 2. Lymphadenopathy, postauricular - ICD9: 785.6, ICD10: R59.0 -Suspect possibly due to ear infection. -Treating as above. -May use Tylenol/Motrin as needed for pain. -If no improvement in 1 to 2 weeks, close follow-up with PCP. Patient agreeable. Diagnosis and treatment plan were discussed and questions were answered to the patient's satisfaction. Pt acknowledged understanding of concepts and follow up plan. Specific signs and symptoms that would indicate the need for higher level of care were discussed in detail warranting prompt ER evaluation. SARAH Cuellar Allergies As of Date: 03/17/2024 Noted Allergy Reaction EYE DROPS (TETRAHYDROZOLINE) 03/17/2024 2 - Rash Date Reviewed: 03/17/2024 Reviewed by: Becky Sharma LPN - Fully Assessed Reason for Visit: Ear Problem [38] Cmt: Pressure and pain in L ear, swollen lymph node behind ear x 2 days Primary Visit Diagnosis:Acute otitis media, left [H66.92] Other Visit Diagnosis:Lymphadenopat hy, postauricular [R59.0] Order(s):amoxicillin (AMOXIL) 875 mg tabletTake 1 tablet by mouth two times a day for 7 days.Disp: 14 tabletRfl: 0 Prescriptions as of 03/17/2024 - amoxicillin (AMOXIL) 875 mg tablet Take 1 tablet by mouth two times a day for 7 days. - norethindrone (AYGESTIN) 5 mg tablet TAKE 1 TABLET BY MOUTH THREE TIMES DAILY UNTIL BLEEDING STOPS FOR 24 HOURS THEN TAKE 1 TABLET TWICE DAILY TO FINISH RX. - azithromycin (ZITHROMAX) 250 mg tablet TAKE 2 TABLETS BY MOUTH ON DAY 1, AND THEN TAKE 1 TABLET BY MOUTH ONCE A DAY ON DAY 2 THROUGH DAY 5 - PNV no.95/ferrous fum/folic ac ( ORAL) Take by mouth. Problem List As Of Date: 03/17/2024 (None) Prescriptions ordered this encounter Disp Refills Start End AMOXICILLIN 875 MG TABLET 14 t* 0 03/17/2024 03/24/2024 Route: ORAL Sig: Take 1 tablet by mouth two times a day for 7 days. Encounter Status:Closed by JONATHAN WHELAN on 03/17/24 Normal [facility] Heterophile Ab LA Ql (S)Orde red By: Mariama Raphael on 12-11-2023 Interpretation and review of laboratory results Normal [facility] MONOTEST, INFECTIOUS MONOOrd ered By: Mariama Raphael on 12-11-2023 Heterophile Ab LA Ql (S) Negative Negative [facility] Comment on above: Infectious Mononucle osis rapid test is used as an aid in diagnosis of acute infection with Anamika-Renae virus (EBV). The antibody levels may occasionally remain elevated up to several months after a primary EBV infection. Final interpretation should be done in conjunction with EBV-specific serology and clinical correlation. False positive results may occasionally be seen with other infectious agents such as Cytomegalovirus, Toxoplasma, and HIV among others as well as non-infectious conditions such as lymphoma. Clinical correlation is required. STREP A MOLECULAR (POC)on Procedural Control Valid [facility] Strep A (POCT) Negative Negative [facility] Absolute lymphocyte countOrd ered By: Lissette Biggs on 10-20-2023 Lymphocytes Auto (Unsp spec) [#/Vol] 2.43 10*3/uL 0.83-4.51 [facility] Automated lymphocyte count a s percentage of total leukocytesOrdered By: Lissette Biggs on 10-20-2023 Lymphocytes/100 WBC Auto (Unsp spec) 29.4 % 19-41 [facility] Basophil percentageOrdered B y: [facility]23 Basophils/100 WBC (Bld) 0.6 % 0-1 [facility] Eosinophils/100 WBC (Bld) 2.3 % 0-5 [facility] Hemoglobin (Bld) [Mass/Vol] 14.1 g/dL 12.0-15.0 [facility] Monocytes/100 WBC (Bld) 8.7 % 0-10 [facility] Neutrophils (Bld) [#/Vol] 4.9 10*3/uL 2.0-7.7 [facility] Neutrophils/100 WBC (Bld) 58.6 % 47-70 [facility] WBC (Bld) [#/Vol] 8.3 10*3/uL 4.4-11.0 [facility] Determination of erythrocyte mean corpuscular volume (MCV)Ordered By: Lissette Biggs on 10-20-2023 MCV (RBC) [Entitic vol] 81.2 fL 81-99 [facility] Erythrocyte distribution wid th ratioOrdered By: [facility] Erythrocyte distribution width (RBC) [Ratio] 14.4 % 11.6-14.6 [facility] Erythrocyte distribution wid th standard deviationOrdered By: Lissette Biggs on 10-20-2023 Erythrocyte distribution width (RBC) [Entitic vol] 41.9 fL 35.1-43.9 [facility] Hematocrit Auto (Bld) [Volum e fraction]Ordered By: Lissette Biggs on 10-20-2023 Hematocrit (Bld) [Volume fraction] 42.7 % 37-47 [facility] Immature granulocytes/100 WB C Auto (Bld)Ordered By: Lissette Biggs on 10-20-2023 Immature granulocytes/100 WBC (Bld) 0.400 % 0.0-0.9 [facility] Comment on above: IG% - Immature Granu locytes (promyelocytes, myelocytes and metamyelocytes) > 1% indicates that a LEFT SHIFT is Present. Laboratory - Hematology and Cell countsOrdered By: Lissette Biggs on 10-20-2023 MCH (RBC) [Entitic mass] 26.8 pg 27.0-32.0 [facility] MCHC (RBC) [Mass/Vol] 33.0 g/dL 32-36 [facility] Nucleated RBC/100 WBC (Bld) [Ratio] 0 % 0-5 [facility] Platelet mean volume (Bld) [Entitic vol] 10.0 fL 6.2-12.0 [facility] Platelets (Bld) [#/Vol] 269 10*3/uL 150-450 [facility] RBC Auto (Bld) [#/Vol]Ordere d By: Lissette Biggs on 10-20-2023 RBC (Bld) [#/Vol] 5.26 10*6/uL 4.2-5.4 [facility] Serum or plasma choriogonado tropin detectionOrdered By: Lissette Biggs on 10-20-2023 HCG ( test) Ql Negative [facility] Basophil percentageOrdered B y: Jocelyn Jason on 10-02-2023 Bilirubin [Mass/Vol] 0.50 mg/dL 0.20-1.00 [facility] Comment on above: For patients on eltr ombopag therapy, use of Dimension [place] TBIL is not recommended. Chloride [Moles/Vol] 108 mmol/L 98-107 [facility] Glucose [Mass/Vol] 90 mg/dL 74-106 [facility] Hemoglobin (Bld) [Mass/Vol] 14.3 g/dL 12.0-15.0 [facility] Potassium [Moles/Vol] 3.5 mmol/L 3.5-5.1 [facility] Protein [Mass/Vol] 7.0 g/dL 6.4-8.2 [facility] Sodium [Moles/Vol] 139 mmol/L 136-145 [facility] WBC (Bld) [#/Vol] 9.7 10*3/uL 4.4-11.0 [facility] Determination of erythrocyte mean corpuscular volume (MCV)Ordered By: Jocelyn Gomez on 10-02-2023 MCV (RBC) [Entitic vol] 82.4 fL 81-99 [facility] Erythrocyte distribution wid th ratioOrdered By: Jocelyn Gomez on 10-02-2023 Erythrocyte distribution width (RBC) [Ratio] 14.6 % 11.6-14.6 [facility] Erythrocyte distribution wid th standard deviationOrdered By: Jocelynjusto Gomez on 10-02-2023 Erythrocyte distribution width (RBC) [Entitic vol] 43.5 fL 35.1-43.9 [facility] Hematocrit Auto (Bld) [Volum e fraction]Ordered By: Jocelyn Gomez on 10-02-2023 Hematocrit (Bld) [Volume fraction] 44.0 % 37-47 [facility] Laboratory - Chemistry and C hemistry - challengeOrdered By: Jocelyn Gomez on 10-02-2023 Albumin/Globulin [Mass ratio] 1.1 {ratio} 0.9-2.4 [facility] ALP [Catalytic activity/Vol] 64 U/L 45-117 [facility] ALT [Catalytic activity/Vol] 33 U/L 13-56 [facility] CO2 [Moles/Vol] 24.0 mmol/L 21.0-32.0 [facility] Globulin (S) [Mass/Vol] 3.3 g/dL 2.2-4.2 [facility] Urea nitrogen/Creatinine [Mass ratio] 12.5 mg/mg 10-20 [facility] Laboratory - Hematology and Cell countsOrdered By: Jocelyn Gomez on 10-02-2023 MCH (RBC) [Entitic mass] 26.8 pg 27.0-32.0 [facility] MCHC (RBC) [Mass/Vol] 32.5 g/dL 32-36 [facility] Platelet mean volume (Bld) [Entitic vol] 10.1 fL 6.2-12.0 [facility] Platelets (Bld) [#/Vol] 331 10*3/uL 150-450 [facility] No Panel InformationOrdered By: Jocelyn Gomez on 10-02-2023 Estimated GFR (MDRD) Amer 97 mL/min >60 [facility] Comment on above: GFR Calc Estimated GFR (MDRD) Non-Af Amer 80 mL/min >60 [facility] Comment on above: Non- GFR Calc RBC Auto (Bld) [#/Vol]Ordere d By: Jocelyn Gomez on 10-02-2023 RBC (Bld) [#/Vol] 5.34 10*6/uL 4.2-5.4 [facility] Serum or plasma calcium stuart urement (mass/volume)Ordered By: Jocelyn Gomez on 10-02-2023 Calcium [Mass/Vol] 8.8 mg/dL 8.5-10.1 [facility] Serum or plasma creatinine m easurement (mass/volume)Ordered By: Jocelyn Gomez on 10-02-2023 Creatinine [Mass/Vol] 0.88 mg/dL 0.55-1.02 [facility] Comment on above: The validity of the calculated GFR & GFRAA in patients over 70 years has not been determined. Clinical correlation is essential. Serum or plasma thyroid stim ulating hormone (TSH) measurement (units/volume)Ordered By: Jocelyn Gomez on 10-02-2023 TSH Qn 3.29 uIU/mL 0.358-3.74 [facility] Serum or plasma urea nitroge n measurement (mass/volume)Ordered By: Jocelyn Gomez on 10-02-2023 Urea nitrogen [Mass/Vol] 11 mg/dL 7-18 [facility] Thin prep Papanicolaou smear with manual screeningOrdered By: Jocelyn Gomez on 10-02-2023 Thin prep Papanicolaou smear with manual screening 3.7 g/dL 3.2-5.0 [facility] Thin prep Papanicolaou smear with manual screening 14 U/L 15-37 [facility] Thin prep Papanicolaou smear with manual screening 7 5-15 [facility] Absolute lymphocyte countOrd ered By: Adriana Lorenzana on 02-27-2023 Lymphocytes Auto (Unsp spec) [#/Vol] 2.82 10*3/uL 0.83-4.51 [facility] Basophil percentageOrdered B y: Adriana Lorenzana on 02-27-2023 Basophils/100 WBC (Bld) 0.5 % 0-1 [facility] Eosinophils/100 WBC (Bld) 2.4 % 0-5 [facility] Neutrophils (Bld) [#/Vol] 4.4 10*3/uL 2.0-7.7 [facility] Neutrophils/100 WBC (Bld) 53.1 % 47-70 [facility] WBC (Bld) [#/Vol] 8.2 10*3/uL 4.4-11.0 [facility] Blood erythrocytes count (nu mber/volume)Ordered By: Adriana Lorenzana on 02-27-2023 RBC (Bld) [#/Vol] 4.99 10*6/uL 4.2-5.4 [facility] Blood hemoglobin measurement (mass/volume)Ordered By: Adriana Lorenzana on 02-27-2023 Hemoglobin (Bld) [Mass/Vol] 14.3 g/dL 12.0-15.0 [facility] Blood lymphocytes/100 leukoc ytesOrdered By: Adriana Lorenzana on 02-27-2023 Lymphocytes/100 WBC (Bld) 34.3 % 19-41 [facility] Blood monocytes/100 leukocyt esOrdered By: Adriana Lorenzana on 02-27-2023 Monocytes/100 WBC (Bld) 9.5 % 0-10 [facility] Blood platelet mean volumeOr dered By: Adriana Lorenzana on 02-27-2023 Platelet mean volume (Bld) [Entitic vol] 10.3 fL 6.2-12.0 [facility] Determination of erythrocyte mean corpuscular volume (MCV)Ordered By: Adriana Lorenzana on 02-27-2023 MCV (RBC) [Entitic vol] 86.0 fL 81-99 [facility] Hematocrit Auto (Bld) [Volum e fraction]Ordered By: Adriana Lorenzana on 02-27-2023 Hematocrit (Bld) [Volume fraction] 42.9 % 37-47 [facility] Laboratory - Chemistry and C hemistry - challengeOrdered By: Adriana Lorenzana on 02-27-2023 Free T4 [Mass/Vol] 0.88 ng/dL 0.76-1.46 [facility] Laboratory - Hematology and Cell countsOrdered By: Adriana Lorenzana on 02-27-2023 Erythrocyte distribution width (RBC) [Entitic vol] 41.1 fL 35.1-43.9 [facility] Erythrocyte distribution width (RBC) [Ratio] 13.3 % 11.6-14.6 [facility] Immature granulocytes/100 WBC (Bld) 0.200 % 0.0-0.9 [facility] Comment on above: IG% - Immature Granu locytes (promyelocytes, myelocytes and metamyelocytes) > 1% indicates that a LEFT SHIFT is Present. MCH (RBC) [Entitic mass] 28.7 pg 27.0-32.0 [facility] Nucleated RBC/100 WBC (Bld) [Ratio] 0 % 0-5 [facility] MCHC Auto (RBC) [Mass/Vol]Or dered By: Adriana Lorenzana on 02-27-2023 MCHC (RBC) [Mass/Vol] 33.3 g/dL 32-36 [facility] No Panel InformationOrdered By: Adriana Lorenzana on 02-27-2023 Thyroid Stimulating Hormone (TSH) 3.53 uIU/mL 0.358-3.74 [facility] Platelets bldOrdered By: Jessica Lorenzana on 02-27-2023 Platelets (Bld) [#/Vol] 273 10*3/uL 150-450 [facility] Serum or plasma choriogonado tropin detectionOrdered By: Adriana Lorenzana on 02-27-2023 HCG ( test) Ql < 1 mIU/mL <4 [facility] Comment on above: hCG levels with Gest ational AgeGestational Age hCG mIU/mL (IU/L)0.2 - 1 week 5 - 501-2 weeks 50 - 5002-3 weeks 100 - 98808-8 weeks 500 - 803098-8 weeks 1000 - 253723-2 weeks 16471 - 100,0006-8 weeks 31578 - 200,0002-3 months 17538 - 100,000 Absolute lymphocyte countOrd ered By: Adriana Lorenzana on 08-21-2023 Lymphocytes Auto (Unsp spec) [#/Vol] 3.25 10*3/uL 0.83-4.51 [facility] Basophil percentageOrdered B y: Adriana Lorenzana on 02-25-2023 Basophils/100 WBC (Bld) 0.6 % 0-1 [facility] Eosinophils/100 WBC (Bld) 2.2 % 0-5 [facility] Neutrophils (Bld) [#/Vol] 4.7 10*3/uL 2.0-7.7 [facility] Neutrophils/100 WBC (Bld) 52.3 % 47-70 [facility] WBC (Bld) [#/Vol] 9.1 10*3/uL 4.4-11.0 [facility] Beta hCG serum qualOrdered B y: Adriana Lorenzana on 02-25-2023 Beta HCG ( test) Ql Negative [facility] Blood erythrocytes count (nu mber/volume)Ordered By: Adriana Lorenzana on 02-25-2023 RBC (Bld) [#/Vol] 5.08 10*6/uL 4.2-5.4 [facility] Blood hemoglobin measurement (mass/volume)Ordered By: Adriana Lorenzana on 02-25-2023 Hemoglobin (Bld) [Mass/Vol] 14.7 g/dL 12.0-15.0 [facility] Blood lymphocytes/100 leukoc ytesOrdered By: Adriana Lorenzana on 02-25-2023 Lymphocytes/100 WBC (Bld) 35.9 % 19-41 [facility] Blood monocytes/100 leukocyt esOrdered By: Adriana Lorenzana on 02-25-2023 Monocytes/100 WBC (Bld) 8.8 % 0-10 [facility] Blood platelet mean volumeOr dered By: Adriana Lorenzana on 02-25-2023 Platelet mean volume (Bld) [Entitic vol] 10.0 fL 6.2-12.0 [facility] Determination of erythrocyte mean corpuscular volume (MCV)Ordered By: Adriana Lorenzana on 02-25-2023 MCV (RBC) [Entitic vol] 85.0 fL 81-99 [facility] Hematocrit Auto (Bld) [Volum e fraction]Ordered By: Adriana Lorenzana on 02-25-2023 Hematocrit (Bld) [Volume fraction] 43.2 % 37-47 [facility] Laboratory - Chemistry and C hemistry - challengeOrdered By: Adriana Lorenzana on 02-25-2023 Free T4 [Mass/Vol] 0.86 ng/dL 0.76-1.46 [facility] Laboratory - Hematology and Cell countsOrdered By: Adriana Lorenzana on 02-25-2023 Erythrocyte distribution width (RBC) [Entitic vol] 41.1 fL 35.1-43.9 [facility] Erythrocyte distribution width (RBC) [Ratio] 13.4 % 11.6-14.6 [facility] Immature granulocytes/100 WBC (Bld) 0.200 % 0.0-0.9 [facility] Comment on above: IG% - Immature Granu locytes (promyelocytes, myelocytes and metamyelocytes) > 1% indicates that a LEFT SHIFT is Present. MCH (RBC) [Entitic mass] 28.9 pg 27.0-32.0 [facility] Nucleated RBC/100 WBC (Bld) [Ratio] 0 % 0-5 [facility] MCHC Auto (RBC) [Mass/Vol]Or dered By: Adriana Lorenzana on 02-25-2023 MCHC (RBC) [Mass/Vol] 34.0 g/dL 32-36 [facility] No Panel InformationOrdered By: Adriana Lorenzana on 02-25-2023 Thyroid Stimulating Hormone (TSH) 2.83 uIU/mL 0.358-3.74 [facility] Platelets bldOrdered By: Jessica Lorenzana on 02-25-2023 Platelets (Bld) [#/Vol] 270 10*3/uL 150-450 [facility] Serum heterophile antibody d etectionOrdered By: Zaid Hickey on 11-30-2022 Heterophile Ab Ql (S) Negative Negative [facility] Cervical or vagninal specime n microscopic examination by cytology stain (reported asOrdered By: Dr. Robertson on 07-11-2022 Cytology report Cyto stain Doc (Cvx/Vag) Comment . [facility] Comment on above: The Pap smear is a s creening test designed to aid in thedetection of premalignant and malignant conditions of theuterine cervix. It is not a diagnostic procedure andshould not be used as the sole means of detecting cervicalcancer. Both false-positive and false-negative reports dooccur. Laboratory - CytologyOrdered By: Dr. Robertson on 07-11-2022 Botany Technician Cyto stain Nom (Cvx/Vag) [ID] Comment . [facility] Comment on above: Meli Denson, Cytotec hnologist (ASCP) Laboratory - Miscellaneous t estsOrdered By: Dr. Robertson on 07-11-2022 Service comment (Unsp spec) [Interp] Comment . [facility] Comment on above: This liquid based Th inPrep(R) pap test was screened withthe use of an image guided system. Service comment (Unsp spec) [Interp] . . [facility] No Panel InformationOrdered By: Dr. Robertson on 07-11-2022 Human Papillomavirus Screen Comment . [facility] Comment on above: The HPV DNA reflex c palmer were not met with this specimenresult therefore, no HPV testing was performed.Performed at: [facility] [id number] Director: Mayela García MD, Phone: [phone] Pathology report final diagnosis Narrative Comment . [facility] Comment on above: NEGATIVE FOR INTRAEP ITHELIAL LESION OR MALIGNANCY. Absolute lymphocyte countOrd ered By: Destinee Mraino on 05-22-2022 Lymphocytes Auto (Unsp spec) [#/Vol] 2.59 10*3/uL 0.83-4.51 [facility] Basophil percentageOrdered B y: Destinee Marino on 05-22-2022 Basophils/100 WBC (Bld) 0.3 % 0-1 [facility] Eosinophils/100 WBC (Bld) 1.1 % 0-5 [facility] Neutrophils (Bld) [#/Vol] 7.2 10*3/uL 2.0-7.7 [facility] Neutrophils/100 WBC (Bld) 65.9 % 47-70 [facility] WBC (Bld) [#/Vol] 11.0 10*3/uL 4.4-11.0 [facility] Blood erythrocytes count (nu mber/volume)Ordered By: Destinee Marino on 05-22-2022 RBC (Bld) [#/Vol] 3.48 10*6/uL 4.2-5.4 [facility] Blood hemoglobin measurement (mass/volume)Ordered By: Destinee Marino on 05-22-2022 Hemoglobin (Bld) [Mass/Vol] 10.3 g/dL 12.0-15.0 [facility] Blood lymphocytes/100 leukoc ytesOrdered By: Destinee Marino on 05-22-2022 Lymphocytes/100 WBC (Bld) 23.6 % 19-41 [facility] Blood monocytes/100 leukocyt esOrdered By: Destineeviolet Marino on 05-22-2022 Monocytes/100 WBC (Bld) 8.3 % 0-10 [facility] Blood platelet mean volumeOr dered By: Destinee Marino on 05-22-2022 Platelet mean volume (Bld) [Entitic vol] 9.7 fL 6.2-12.0 [facility] Determination of erythrocyte mean corpuscular volume (MCV)Ordered By: Destinee Marino on 05-22-2022 MCV (RBC) [Entitic vol] 88.2 fL 81-99 [facility] Glucose Glucometer (dC) [M ass/Vol]Ordered By: Dr. Robertson on 05-22-2022 Glucose [Mass/Vol] 81 mg/dL 74-106 [facility] Comment on above: MANAGEMENT OF PATIEN T CARE PER NURSING PROTOCOL Hematocrit Auto (Bld) [Volum e fraction]Ordered By: Destinee Marino on 05-22-2022 Hematocrit (Bld) [Volume fraction] 30.7 % 37-47 [facility] Laboratory - Hematology and Cell countsOrdered By: Destineeviolet Marino on 05-22-2022 Erythrocyte distribution width (RBC) [Entitic vol] 51.8 fL 35.1-43.9 [facility] Erythrocyte distribution width (RBC) [Ratio] 16.3 % 11.6-14.6 [facility] Immature granulocytes/100 WBC (Bld) 0.800 % 0.0-0.9 [facility] Comment on above: IG% - Immature Granu locytes (promyelocytes, myelocytes and metamyelocytes) > 1% indicates that a LEFT SHIFT is Present. MCH (RBC) [Entitic mass] 29.6 pg 27.0-32.0 [facility] Nucleated RBC/100 WBC (Bld) [Ratio] 0 % 0-5 [facility] MCHC Auto (RBC) [Mass/Vol]Or dered By: Destinee Jamila on 05-22-2022 MCHC (RBC) [Mass/Vol] 33.6 g/dL 32-36 [facility] Platelets bldOrdered By: Oren barksdale Jamila on 05-22-2022 Platelets (Bld) [#/Vol] 212 10*3/uL 150-450 [facility] Bilirubin Test strip Ql (U)O rdered By: Dr. Robertson on 05-21-2022 Bilirubin Ql (U) Negative Negative [facility] Ketones Test strip Ql (U)Ord ered By: Dr. Robertson on 05-21-2022 Ketones Ql (U) Negative Negative [facility] Nitrite Test strip Ql (U)Ord ered By: Dr. Robertson on 05-21-2022 Nitrite Ql (U) Negative Negative [facility] Protein Test strip Ql (U)Ord ered By: Dr. Robertson on 05-21-2022 Protein Ql (U) Negative Negative [facility] Urine blood detectionOrdered By: Dr. Robertson on 05-21-2022 RBC Ql (U) 250 /ul Negative [facility] Urine clarityOrdered By: Dr. Robertson on 05-21-2022 Clarity (U) Clear Clear [facility] Urine color determinationOrd ered By: Dr. Robertson on 05-21-2022 Color (U) Yellow Yellow [facility] Urine glucose detectionOrder ed By: Dr. Robertson on 05-21-2022 Glucose Ql (U) Normal mg/dl Normal [facility] Urine leukocyte esterase det ection by dipstickOrdered By: Dr. Robertson on 05-21-2022 Leukocyte esterase Test strip Ql (U) 100 /ul Negative [facility] Urine pHOrdered By: Dr. Sherry tijerina on 05-21-2022 pH (U) 7.0 [pH] 5.0 - 8.0 [facility] Urine specific gravity measu rementOrdered By: Dr. Robertson on 05-21-2022 Specific gravity (U) [Rel density] 1.010 1.002-1.030 [facility] Urobilinogen Auto test strip Ql (U)Ordered By: Dr. Robertson on 05-21-2022 Urobilinogen Ql (U) Normal mg/dl Normal [facility] Laboratory - Chemistry and C hemistry - challengeon 05-18-2022 Glucose Ql (U) Negative [facility] Laboratory - Urinalysison Protein Ql (U) Negative [facility] Laboratory - Chemistry and C hemistry - challengeon 05-15-2022 Glucose Ql (U) Negative [facility] Laboratory - Urinalysison Protein Ql (U) Negative [facility] Laboratory - Chemistry and C hemistry - challengeon 05-11-2022 Glucose Ql (U) Negative [facility] Laboratory - Urinalysison Protein Ql (U) Negative [facility] Quantitative serum or plasma 3 hour gestational glucose tolerance panelOrdered By: Dr. Mullen on 05-09-2022 Glucose tolerance 3 hours gestational panel See comment [facility] Comment on above: FASTING 89 Col: 08/29 0948GLUCOSE TOLERANCE TEST FOR Reference Interval GESTATIONAL DIABETES Fasting <105 mg/dL 1 hour <190 mg/dl 2 hour <165 mg/dl 3 hour <145 mg/dl 1 HR GLU 222 H Col: 05/09/22 1050 2 HR GLU 200 H Col: 05/09/22 1150 3 HR GLU 88 Col: 05/09/22 1251 No Panel InformationOrdered By: Dr. Mullen on 05-07-2022 Group B Streptococcus Culture Group B Beta Streptococcus is not isolated. [facility] Gestational diabetes screen 1-hour screen with 50g oral glucose loadOrdered By: Dr. Mullen on 05-04-2022 Glucose 1 Hr post 50 g glucose PO [Mass/Vol] 168 mg/dL 70-140 [facility] Laboratory - Chemistry and C hemistry - challengeon 05-04-2022 Glucose Ql (U) Negative [facility] Laboratory - Urinalysison Protein Ql (U) Negative [facility] Laboratory - Chemistry and C hemistry - challengeon 04-27-2022 Glucose Ql (U) Negative [facility] Laboratory - Urinalysison Protein Ql (U) Negative [facility] Laboratory - Chemistry and C hemistry - challengeOrdered By: Dr. Mullen on 03-30-2022 Free T4 [Mass/Vol] 0.91 ng/dL 0.76-1.46 [facility] No Panel InformationOrdered By: Dr. Mullen on 03-30-2022 Thyroid Stimulating Hormone (TSH) 2.59 uIU/mL 0.358-3.74 [facility] No Panel Informationon 03-22 Vaginal Amniotic Fluid Detection Negative Negative [facility] Work Phone: Comment on above: Amniotic fluid not p resent indicates No Rupture of FetalMembranes at time of specimen collection. Laboratory - Chemistry and C hemistry - challengeon 03-16-2022 Glucose Ql (U) Negative [facility] Work Phone: Laboratory - Chemistry and C hemistry - challengeon 03-08-2022 Glucose Ql (U) Negative [facility] Work Phone: Laboratory - Urinalysison Protein Ql (U) Negative [facility] Work Phone: Laboratory - Chemistry and C hemistry - challengeon 02-26-2022 Glucose Ql (U) Negative [facility] Work Phone: Laboratory - Urinalysison Protein Ql (U) Negative [facility] Work Phone: Absolute lymphocyte counton 02-23-2022 Lymphocytes Auto (Unsp spec) [#/Vol] 2.13 10*3/uL 0.83-4.51 [facility] Work Phone: Basophil percentageon 2021 Basophils/100 WBC (Bld) 0.3 % 0-1 [facility] Work Phone: Eosinophils/100 WBC (Bld) 1.2 % 0-5 [facility] Work Phone: Neutrophils (Bld) [#/Vol] 8.5 10*3/uL 2.0-7.7 [facility] Work Phone: [phone] Neutrophils/100 WBC (Bld) 72.4 % 47-70 [facility] Work Phone: WBC (Bld) [#/Vol] 11.7 10*3/uL 4.4-11.0 [facility] Work Phone: Blood erythrocytes count (nu mber/volume)on 02-23-2022 RBC (Bld) [#/Vol] 4.08 10*6/uL 4.2-5.4 [facility] Work Phone: Blood hemoglobin measurement (mass/volume)on 02-23-2022 Hemoglobin (Bld) [Mass/Vol] 12.3 g/dL 12.0-15.0 [facility] Work Phone: Blood lymphocytes/100 leukoc yteson 02-23-2022 Lymphocytes/100 WBC (Bld) 18.3 % 19-41 [facility] Work Phone: Blood monocytes/100 leukocyt eson 02-23-2022 Monocytes/100 WBC (Bld) 6.4 % 0-10 [facility] Work Phone: Blood platelet mean volumeon 02-23-2022 Platelet mean volume (Bld) [Entitic vol] 10.2 fL 6.2-12.0 [facility] Work Phone: Determination of erythrocyte mean corpuscular volume (MCV)on 02-23-2022 MCV (RBC) [Entitic vol] 89.7 fL 81-99 [facility] Work Phone: Gestational diabetes screen 1-hour screen with 50g oral glucose loadon 02-23-2022 Glucose 1 Hr post 50 g glucose PO [Mass/Vol] 130 mg/dL 70-140 [facility] Work Phone: Hematocrit Auto (Bld) [Volum e fraction]on 02-23-2022 Hematocrit (Bld) [Volume fraction] 36.6 % 37-47 [facility] Work Phone: Laboratory - Hematology and Cell countson 02-23-2022 Erythrocyte distribution width (RBC) [Entitic vol] 46.9 fL 35.1-43.9 [facility] Work Phone: Erythrocyte distribution width (RBC) [Ratio] 14.5 % 11.6-14.6 [facility] Work Phone: Immature granulocytes/100 WBC (Bld) 1.400 % 0.0-0.9 [facility] Work Phone: Comment on above: IG% - Immature Granu locytes (promyelocytes, myelocytes and metamyelocytes) > 1% indicates that a LEFT SHIFT is Present. MCH (RBC) [Entitic mass] 30.1 pg 27.0-32.0 [facility] Work Phone: Nucleated RBC/100 WBC (Bld) [Ratio] 0 % 0-5 [facility] Work Phone: MCHC Auto (RBC) [Mass/Vol]on 02-23-2022 MCHC (RBC) [Mass/Vol] 33.6 g/dL 32-36 [facility] Work Phone: Platelets bldon 02-23-2022 Platelets (Bld) [#/Vol] 197 10*3/uL 150-450 [facility] Work Phone: Laboratory - Chemistry and C hemistry - challengeon 01-31-2022 Glucose Ql (U) Negative [facility] Work Phone: Laboratory - Urinalysison Protein Ql (U) Trace [facility] Work Phone: Laboratory - Chemistry and C hemistry - challengeon 01-05-2022 Glucose Ql (U) Negative [facility] Work Phone: Laboratory - Urinalysison Protein Ql (U) Negative [facility] Work Phone: Absolute lymphocyte counton 11-07-2021 Lymphocytes Auto (Unsp spec) [#/Vol] 2.14 10*3/uL 0.83-4.51 [facility] Work Phone: Basophil percentageon 2021 Basophils/100 WBC (Bld) 0.2 % 0-1 [facility] Work Phone: Eosinophils/100 WBC (Bld) 1.1 % 0-5 [facility] Work Phone: [phone] Neutrophils (Bld) [#/Vol] 7.0 10*3/uL 2.0-7.7 [facility] Work Phone: Neutrophils/100 WBC (Bld) 69.2 % 47-70 [facility] Work Phone: WBC (Bld) [#/Vol] 10.2 10*3/uL 4.4-11.0 [facility] Work Phone: Blood erythrocytes count (nu mber/volume)on 11-07-2021 RBC (Bld) [#/Vol] 4.46 10*6/uL 4.2-5.4 [facility] Work Phone: Blood hemoglobin measurement (mass/volume)on 11-07-2021 Hemoglobin (Bld) [Mass/Vol] 13.2 g/dL 12.0-15.0 [facility] Work Phone: Blood lymphocytes/100 leukoc yteson 11-07-2021 Lymphocytes/100 WBC (Bld) 21.1 % 19-41 [facility] Work Phone: Blood monocytes/100 leukocyt eson 11-07-2021 Monocytes/100 WBC (Bld) 7.9 % 0-10 [facility] Work Phone: [phone] Blood platelet mean volumeon 11-07-2021 Platelet mean volume (Bld) [Entitic vol] 9.7 fL 6.2-12.0 [facility] Work Phone: [phone] Chlamydia trachomatis rRNA d etection by probe and target amplification methodon 11-07-2021 C. trachomatis rRNA GERARD+probe Ql (Unsp spec) Negative Negative [facility] Work Phone: Culture, urineon 11-07-2021 Bacteria identified Cx Nom (U) Escherichia coli [facility] Work Phone: Determination of erythrocyte mean corpuscular volume (MCV)on 11-07-2021 MCV (RBC) [Entitic vol] 86.1 fL 81-99 [facility] Work Phone: Gestational diabetes screen 1-hour screen with 50g oral glucose loadon 11-07-2021 Glucose 1 Hr post 50 g glucose PO [Mass/Vol] 109 mg/dL 70-140 [facility] Work Phone: HIV 1 and HIV-2 antibody ass ay with HIV-1 p24 antigen detectionon 11-07-2021 HIV 1+2 Ab+HIV1 p24 Ag IA Ql Non-Reactive Nonreactive [facility] Work Phone: Hematocrit Auto (Bld) [Volum e fraction]on 11-07-2021 Hematocrit (Bld) [Volume fraction] 38.4 % 37-47 [facility] Work Phone: Laboratory - Drug toxicology on 11-07-2021 Amphetamines Ql (U) Negative <1000 ng/mL [facility] Work Phone: Benzodiazepines Ql (U) Negative < 200 ng/mL [facility] Work Phone: Cannabinoids Screen Ql (U) Negative < 50 ng/mL [facility] Work Phone: Cocaine Ql (U) Negative < 300 ng/mL [facility] Work Phone: Opiates Ql (U) Negative < 300 ng/mL [facility] Work Phone: Laboratory - Hematology and Cell countson 11-07-2021 Erythrocyte distribution width (RBC) [Entitic vol] 41.9 fL 35.1-43.9 [facility] Work Phone: Erythrocyte distribution width (RBC) [Ratio] 13.4 % 11.6-14.6 [facility] Work Phone: Immature granulocytes/100 WBC (Bld) 0.500 % 0.0-0.9 [facility] Work Phone: Comment on above: IG% - Immature Granu locytes (promyelocytes, myelocytes and metamyelocytes) > 1% indicates that a LEFT SHIFT is Present. MCH (RBC) [Entitic mass] 29.6 pg 27.0-32.0 [facility] Work Phone: Nucleated RBC/100 WBC (Bld) [Ratio] 0 % 0-5 [facility] Work Phone: Laboratory - Microbiology an d Antimicrobial susceptibilityon 11-07-2021 N. gonorrhoeae DNA GERARD+probe Ql (Unsp spec) Negative Negative [facility] Work Phone: Comment on above: Performed at: =[address] [id number] Director: Mayela García MD, Phone: [phone] MCHC Auto (RBC) [Mass/Vol]on 11-07-2021 MCHC (RBC) [Mass/Vol] 34.4 g/dL 32-36 [facility] Work Phone: No Panel Informationon 11-07 MDMA (Ecstasy) Screen Negative < 500 ng/mL [facility] Work Phone: Urine Barbiturates Screen Negative < 200 ng/mL [facility] Work Phone: Urine Drug Screen Comment [facility] Work Phone: Comment on above: CONFIRMATORY TESTING FOR ALL POSITIVE URINE DRUG SCREENRESULTS WILL ONLY BE SENT OUT UPON PHYSICIAN ORDER. VISTA Urine Drug Screen methods provide only preliminaryanalytical test results. A more specific alternate chemicalmethod must be used in order to obtain a confirmedanalytical result. Gas chromatography/mass spectrometery(GC/MS) is the preferred confirmatory method. Clinicalconsideration and professional judgement should be appliedto any drug of abuse test result, particularly whenpreliminary positive results are used. URINE TCA TESTING MUST BE ORDERED SEPARATELY. USE TESTMNEMONIC: [facility] Urine Methadone Screen Negative < 300 ng/mL [facility] Work Phone: Hepatitis B Surface Antigen Non-Reactive Nonreactive [facility] Work Phone: Hepatitis C Antibody Non-Reactive Nonreactive [facility] Work Phone: Comment on above: Non Reactive: < 0.8 Equivocal: >/= 0.8 to < 1.0 Reactive: >/= 1.0The [facility] [place] recommends that a reactive/equivocal HCV antibody result be followed up by the HCV Nucleic Acid Amplificationtest (121378) Miscellaneous Test Comment MAILED SPECIMEN [facility] Work Phone: Rubella IgG Antibody Reactive Nonreactive [facility] Work Phone: Comment on above: Antibody Results Int erpretation of Immune Status Non Reactive Presumed Non-Immune Equivocal Equivocal Reactive Presumed Immune Platelets bldon 11-07-2021 Platelets (Bld) [#/Vol] 210 10*3/uL 150-450 [facility] Work Phone: Serum Treponema species anti body detectionon 11-07-2021 Treponema sp Ab Ql (S) Non-Reactive [facility] Work Phone: Urine phencyclidine (PCP) de tectionon 11-07-2021 Phencyclidine Ql (U) Negative < 25 ng/mL [facility] Work Phone: Culture, urine Bacteria identified Cx Nom (U) Escherichia coli [facility] Work Phone: No Panel Information Group B Streptococcus Culture Group B Beta Streptococcus is not isolated. [facility] Work Phone: Vital Signs Date Time Vital Sign Value Performing Clinician Facility 05-14-2025 14:47-0500 Body height 165.1 cm Stacey Santacruz MD Work Phone: [facility] 04-28-2025 15:18-0400 Body height 165.1 cm Stacey Santacruz MD Work Phone: [facility] 04-28-2025 15:18-0400 Body mass index (BMI) [Ratio] 38.5 kg/m2 Stacey Santacruz MD Work Phone: [facility] 04-28-2025 15:18-0400 Body weight 104.92 kg Stacey Santacruz MD Work Phone: [facility] 04-28-2025 15:18-0400 Diastolic blood pressure 79 mm[Hg] Stacey Santacruz MD Work Phone: [facility] 04-28-2025 15:18-0400 Systolic blood pressure 131 mm[Hg] Stacey Santacruz MD Work Phone: [facility] 04-26-2025 14:36-0400 Body mass index (BMI) [Ratio] 38.4 kg/m2 Stacey Santacruz MD Work Phone: [facility] 04-26-2025 14:36-0400 Body weight 104.77 kg Stacey Santacruz MD Work Phone: [facility] 04-26-2025 14:36-0400 Diastolic blood pressure 83 mm[Hg] Stacey Santacruz MD Work Phone: [facility] 04-26-2025 14:36-0400 Systolic blood pressure 145 mm[Hg] Stacey Santacruz MD Work Phone: [facility] 04-02-2025 14:59-0400 Body height 165.1 cm Stacey Santacruz MD Work Phone: [facility] 04-02-2025 14:59-0400 Body mass index (BMI) [Ratio] 37.4 kg/m2 Stacey Santacruz MD Work Phone: [facility] 04-02-2025 14:59-0400 Body weight 102.05 kg Stacey Santacruz MD Work Phone: [facility] 04-02-2025 14:59-0400 Diastolic blood pressure 88 mm[Hg] Stacey Santacruz MD Work Phone: [facility] 04-02-2025 14:59-0400 Heart rate 77 /min Stacey Santacruz MD Work Phone: [facility] 04-02-2025 14:59-0400 Respiratory rate 17 /min Stacey Santacruz MD Work Phone: [facility] 04-02-2025 14:59-0400 SaO2% (BldA) [Mass fraction] 100 % Stacey Santacruz MD Work Phone: [facility] 04-02-2025 14:59-0400 Systolic blood pressure 149 mm[Hg] Stacey Santacruz MD Work Phone: [phone])[phone] [address] 04-01-2025 15:21-0400 Body mass index (BMI) [Ratio] 37 kg/m2 Stacey Santacruz MD Work Phone: [phone](073)[phone] [address] 04-01-2025 15:21-0400 Body weight 101.15 kg Stacey Santacruz MD Work Phone: 9(545)[phone] [address] 04-01-2025 15:21-0400 Diastolic blood pressure 87 mm[Hg] Stacey Santacruz MD Work Phone: 1(068)[phone] [place] [address] 04-01-2025 15:21-0400 Systolic blood pressure 138 mm[Hg] Stacey Santacruz MD Work Phone: 8(113)[phone] [address] 02-26-2025 13:34-0400 Body weight 100.24 kg Stacey Santacruz MD Work Phone: 3(729)[phone] [address] 02-26-2025 13:34-0400 Diastolic blood pressure 82 mm[Hg] Stacey Santacruz MD Work Phone: 9(112)[phone] [address] 02-26-2025 13:34-0400 Systolic blood pressure 136 mm[Hg] Stacey Santacruz MD Work Phone: [facility] 02-26-2025 13:08-0400 Body height 165.1 cm Stacey Santacruz MD Work Phone: 5(077)[phone] [address] 02-02-2025 14:38-0400 Body height 165.1 cm Stacey Santacruz MD Work Phone: [facility] 02-02-2025 14:38-0400 Body mass index (BMI) [Ratio] 36.5 kg/m2 Stacey Santacruz MD Work Phone: [phone](863)[phone] [place] [address] 02-02-2025 14:38-0400 Body weight 99.5 kg Stacey Santacruz MD Work Phone: [facility] 02-02-2025 14:38-0400 Diastolic blood pressure 89 mm[Hg] Stacey Santacruz MD Work Phone: [facility] 02-02-2025 14:38-0400 Systolic blood pressure 150 mm[Hg] Stacey Santacruz MD Work Phone: [facility] 01-26-2025 16:05-0400 Body mass index (BMI) [Ratio] 36.02 kg/m2 Krislyn Aberegg PA Work Phone: [facility] 01-26-2025 16:05-0400 Body temperature 99.19 [degF] Krislyn Aberegg PA Work Phone: [facility] 01-26-2025 16:05-0400 Body weight 99.7 kg Krislyn Aberegg PA Work Phone: [facility] 01-26-2025 16:05-0400 Diastolic blood pressure 76 mm[Hg] Krislyn Aberegg PA Work Phone: [facility] 01-26-2025 16:05-0400 Heart rate 80 /min Krislyn Aberegg PA Work Phone: [facility] 01-26-2025 16:05-0400 Respiratory rate 18 /min Krislyn Aberegg PA Work Phone: [facility] 01-26-2025 16:05-0400 SaO2% (BldA) [Mass fraction] 99 % Krislyn Aberegg PA Work Phone: [facility] 01-26-2025 16:05-0400 Systolic blood pressure 122 mm[Hg] Krislyn Aberegg PA Work Phone: [facility] 01-13-2025 15:23-0400 Body mass index (BMI) [Ratio] 36.42 kg/m2 Toro Saul MD Work Phone: [facility] 01-13-2025 15:23-0400 Body temperature 98.49 [degF] Toro Saul MD Work Phone: [facility] 01-13-2025 15:23-0400 Body weight 100.8 kg Toro Saul MD Work Phone: [facility] 01-13-2025 15:23-0400 Diastolic blood pressure 82 mm[Hg] Toro Saul MD Work Phone: [facility] 01-13-2025 15:23-0400 Heart rate 64 /min Toro Saul MD Work Phone: [facility] 01-13-2025 15:23-0400 Respiratory rate 16 /min Toro Saul MD Work Phone: [facility] 01-13-2025 15:23-0400 SaO2% (BldA) [Mass fraction] 99 % Toro Saul MD Work Phone: [facility] 01-13-2025 15:23-0400 Systolic blood pressure 122 mm[Hg] Toro Saul MD Work Phone: [facility] 10-01-2024 10:27-0400 Body temperature 99 [degF] Stacey Santacruz MD Work Phone: [facility] 10-01-2024 10:27-0400 Diastolic blood pressure 99 mm[Hg] Stacey Santacruz MD Work Phone: [facility] 10-01-2024 10:27-0400 Heart rate 81 /min Stacey Santacruz MD Work Phone: [facility] 10-01-2024 10:27-0400 Respiratory rate 16 /min Stacey Santacruz MD Work Phone: [facility] 10-01-2024 10:27-0400 SaO2% (BldA) [Mass fraction] 98 % Stacey Santacruz MD Work Phone: [facility] 10-01-2024 10:27-0400 Systolic blood pressure 146 mm[Hg] Stacey Santacruz MD Work Phone: [facility] 10-01-2024 06:32-0400 Body height 165.1 cm Stacey Santacruz MD Work Phone: [facility] 10-01-2024 06:32-0400 Body mass index (BMI) [Ratio] 45.4 kg/m2 Stacey Santacruz MD Work Phone: [facility] 10-01-2024 06:32-0400 Body weight 123.9 kg Stacey Santacruz MD Work Phone: [facility] 09-24-2024 15:28-0400 Diastolic blood pressure 76 mm[Hg] Stacey Santacruz MD Work Phone: [facility] 09-24-2024 15:28-0400 Heart rate 82 /min Stacey Santacruz MD Work Phone: [facility] 09-24-2024 15:28-0400 Respiratory rate 14 /min Stacey Santacruz MD Work Phone: [facility] 09-24-2024 15:28-0400 SaO2% (BldA) [Mass fraction] 98 % Stacey Santacruz MD Work Phone: [facility] 09-24-2024 15:28-0400 Systolic blood pressure 137 mm[Hg] Stacey Santacruz MD Work Phone: [facility] 09-24-2024 13:28-0400 Body height 165.1 cm Stacey Santacruz MD Work Phone: [facility] 09-24-2024 13:28-0400 Body mass index (BMI) [Ratio] 44.1 kg/m2 Stacey Santacruz MD Work Phone: [facility] 09-24-2024 13:28-0400 Body temperature 98.4 [degF] Stacey Santacruz MD Work Phone: [facility] 09-24-2024 13:28-0400 Body weight 120.2 kg Stacey Santacruz MD Work Phone: [facility] 09-07-2024 13:48-0500 Body height 165.1 cm Stacey Santacruz MD Work Phone: [facility] 09-07-2024 13:48-0500 Body mass index (BMI) [Ratio] 45.6 kg/m2 Stacey Santacruz MD Work Phone: [facility] 09-07-2024 13:48-0500 Body weight 124.39 kg Stacey Santacruz MD Work Phone: [facility] 09-07-2024 13:48-0500 Diastolic blood pressure 88 mm[Hg] Stacey Santacruz MD Work Phone: [facility] 09-07-2024 13:48-0500 Systolic blood pressure 123 mm[Hg] Stacey Santacruz MD Work Phone: [facility] 09-03-2024 10:57-0500 Body temperature 97.9 [degF] Stacey Santacruz MD Work Phone: [facility] 09-03-2024 10:57-0500 Diastolic blood pressure 98 mm[Hg] Stacey Santacruz MD Work Phone: [facility] 09-03-2024 10:57-0500 Heart rate 80 /min Stacey Santacruz MD Work Phone: [facility] 09-03-2024 10:57-0500 Respiratory rate 16 /min Stacey Santacruz MD Work Phone: [facility] 09-03-2024 10:57-0500 SaO2% (BldA) [Mass fraction] 98 % Stacey Santacruz MD Work Phone: [facility] 09-03-2024 10:57-0500 Systolic blood pressure 139 mm[Hg] Stacey Santacruz MD Work Phone: [facility] 09-03-2024 08:00-0500 Body mass index (BMI) [Ratio] 45.6 kg/m2 Stacey Santacruz MD Work Phone: [facility] 09-03-2024 08:00-0500 Body weight 124.28 kg Stacey Santacruz MD Work Phone: [facility] 08-21-2024 15:45-0500 Body mass index (BMI) [Ratio] 44.8 kg/m2 Martha Praisler-Wood DIE [employer]ESSER.[employer] Work Phone: [facility] 08-21-2024 15:45-0500 Body temperature 99.19 [degF] Martha Praisler-Wood DIE PRESSER.[employer] Work Phone: [facility] 08-21-2024 15:45-0500 Body weight 124 kg Martha Praisler-Wood DIE PRESSER.[employer] Work Phone: [facility] 08-21-2024 15:45-0500 Diastolic blood pressure 96 mm[Hg] Martha Praisler-Wood DIE PRESSER.[employer] Work Phone: [facility] 08-21-2024 15:45-0500 Heart rate 75 /min Martha Praisler-Wood DIE PRESSER.[employer] Work Phone: [facility] 08-21-2024 15:45-0500 Respiratory rate 24 /min Martha Praisler-Wood DIE PRESSER.[employer] Work Phone: [facility] 08-21-2024 15:45-0500 SaO2% (BldA) [Mass fraction] 99 % Martha Praisler-Wood DIE PRESSER.[employer] Work Phone: [facility] 08-21-2024 15:45-0500 Systolic blood pressure 144 mm[Hg] Martha Praisler-Wood DIE PRESSER.[employer] Work Phone: [facility] 08-01-2024 14:57-0500 Body temperature 98.1 [degF] Stacey Santacruz MD Work Phone: [facility] 08-01-2024 14:57-0500 Diastolic blood pressure 89 mm[Hg] Stacey Santacruz MD Work Phone: [facility] 08-01-2024 14:57-0500 Heart rate 63 /min Stacey Santacruz MD Work Phone: [facility] 08-01-2024 14:57-0500 Respiratory rate 14 /min Stacey Santacruz MD Work Phone: [facility] 08-01-2024 14:57-0500 SaO2% (BldA) [Mass fraction] 100 % Stacey Santacruz MD Work Phone: [facility] 08-01-2024 14:57-0500 Systolic blood pressure 145 mm[Hg] Stacey Santacruz MD Work Phone: [facility] 08-01-2024 11:23-0500 Body mass index (BMI) [Ratio] 43.9 kg/m2 Stacey Santacruz MD Work Phone: [facility] 08-01-2024 11:23-0500 Body weight 119.74 kg Stacey Santacruz MD Work Phone: [facility] 05-02-2024 08:51-0400 Body mass index (BMI) [Ratio] 43.72 kg/m2 Kiarra Goodwin DIE PRESSER.[employer] Work Phone: [facility] 05-02-2024 08:51-0400 Body temperature 98.6 [degF] Kiarra Goodwin DIE PRESSER.[employer] Work Phone: [facility] 05-02-2024 08:51-0400 Body weight 121 kg Kiarra Goodwin DIE PRESSER.[employer] Work Phone: [facility] 05-02-2024 08:51-0400 Diastolic blood pressure 78 mm[Hg] Kiarra Goodwin DIE PRESSER.[employer] Work Phone: [facility] 05-02-2024 08:51-0400 Heart rate 72 /min Kiarra Goodwin DIE PRESSER.[employer] Work Phone: [facility] 05-02-2024 08:51-0400 Respiratory rate 22 /min Kiarra Goodwin DIE PRESSER.[employer] Work Phone: [facility] 05-02-2024 08:51-0400 SaO2% (BldA) [Mass fraction] 98 % Kiarra Goodwin DIE PRESSER.[employer] Work Phone: [facility] 05-02-2024 08:51-0400 Systolic blood pressure 128 mm[Hg] Kiarra Goodwin DIE PRESSER.[employer] Work Phone: [facility] 03-17-2024 15:25-0400 Body mass index (BMI) [Ratio] 43.72 kg/m2 Krislyn Aberegg PA Work Phone: [facility] 03-17-2024 15:25-0400 Body temperature 98.49 [degF] Krislyn Aberegg PA Work Phone: [facility] 03-17-2024 15:25-0400 Body weight 121 kg Krislyn Aberegg PA Work Phone: [facility] 03-17-2024 15:25-0400 Diastolic blood pressure 84 mm[Hg] Krislyn Aberegg PA Work Phone: [facility] 03-17-2024 15:25-0400 Heart rate 76 /min Krislyn Aberegg PA Work Phone: [facility] 03-17-2024 15:25-0400 Respiratory rate 18 /min Krislyn Aberegg PA Work Phone: [facility] 03-17-2024 15:25-0400 SaO2% (BldA) [Mass fraction] 97 % Krislyn Aberegg PA Work Phone: [facility] 03-17-2024 15:25-0400 Systolic blood pressure 126 mm[Hg] Krislyn Aberegg PA Work Phone: [facility] 12-11-2023 13:16-0400 Body mass index (BMI) [Ratio] 45.81 kg/m2 Gregorio Ayala APRN.[employer] Work Phone: [facility] 12-11-2023 13:16-0400 Body temperature 99.1 [degF] Gregorio Ayala DIE PRESSER.[employer] Work Phone: [facility] 12-11-2023 13:16-0400 Body weight 126.8 kg [facility] DIE PRESSER.[employer] Work Phone: [facility] 12-11-2023 13:16-0400 Diastolic blood pressure 76 mm[Hg] [facility] DIE PRESSER.[employer] Work Phone: [facility] 12-11-2023 13:16-0400 Heart rate 86 /min [facility] DIE PRESSER.[employer] Work Phone: [facility] 12-11-2023 13:16-0400 Respiratory rate 18 /min [facility] DIE PRESSER.[employer] Work Phone: [facility] 12-11-2023 13:16-0400 SaO2% (BldA) [Mass fraction] 97 % [facility] DIE PRESSER.[employer] Work Phone: [facility] 12-11-2023 13:16-0400 Systolic blood pressure 118 mm[Hg] [facility] DIE PRESSER.[employer] Work Phone: [facility] 12-02-2023 08:14-0400 Body mass index (BMI) [Ratio] 45.41 kg/m2 Tiffany Athy PA-C Work Phone: [facility] 12-02-2023 08:14-0400 Body temperature 98.29 [degF] Tiffany Athy PA-C Work Phone: [facility] 12-02-2023 08:14-0400 Body weight 125.7 kg Tiffany Athy PA-C Work Phone: [facility] 12-02-2023 08:14-0400 Diastolic blood pressure 86 mm[Hg] Tiffany Athy PA-C Work Phone: [facility] 12-02-2023 08:14-0400 Heart rate 65 /min Tiffany Athy PA-C Work Phone: [facility] 12-02-2023 08:14-0400 Respiratory rate 21 /min Tiffany Athy PA-C Work Phone: [facility] 12-02-2023 08:14-0400 SaO2% (BldA) [Mass fraction] 96 % Tiffanyaditi Grigsbyviolet [place] Work Phone: [facility] 12-02-2023 08:14-0400 Systolic blood pressure 120 mm[Hg] Tiffany Grigsbyviolet SMITH-Staci Work Phone: [facility] 11-23-2023 08:13-0400 Body mass index (BMI) [Ratio] 46.03 kg/m2 Vonda Perez APRN.[employer] Work Phone: [facility] 11-23-2023 08:13-0400 Body temperature 98.01 [degF] Vonda Perez APRN.[employer] Work Phone: [facility] 11-23-2023 08:13-0400 Body weight 127.4 kg Vonda Perez APRN.[employer] Work Phone: [facility] 11-23-2023 08:13-0400 Diastolic blood pressure 80 mm[Hg] Vonda Perez APRN.[employer] Work Phone: [facility] 11-23-2023 08:13-0400 Heart rate 118 /min Vonda Perez APRN.[employer] Work Phone: [facility] 11-23-2023 08:13-0400 Respiratory rate 20 /min Vonda Perez APRN.[employer] Work Phone: [facility] 11-23-2023 08:13-0400 SaO2% (BldA) [Mass fraction] 99 % Vonda Perez APRN.[employer] Work Phone: [facility] 11-23-2023 08:13-0400 Systolic blood pressure 132 mm[Hg] Vonda Perez APRN.[employer] Work Phone: [facility] 10-20-2023 14:49-0400 Body temperature 98.1 [degF] [facility] 10-20-2023 14:49-0400 Diastolic blood pressure 97 mm[Hg] [facility] 10-20-2023 14:49-0400 Heart rate 77 /min [facility] 10-20-2023 14:49-0400 Respiratory rate 16 /min [facility] 10-20-2023 14:49-0400 SaO2% (BldA) [Mass fraction] 98 % [facility] 10-20-2023 14:49-0400 Systolic blood pressure 138 mm[Hg] [facility] 10-20-2023 12:17-0400 Body height 165.1 cm [facility] 10-20-2023 12:17-0400 Body mass index (BMI) [Ratio] 46.6 kg/m2 [facility] 10-20-2023 12:17-0400 Body weight 127.23 kg [facility] 08-18-2023 10:04-0500 Body temperature 99.5 [degF] Martha Praisler-Wood DIE PRESSER.[employer] Work Phone: [facility] 08-18-2023 10:04-0500 Body weight 125.65 kg Martha Praisler-Wood DIE PRESSER.[employer] Work Phone: [facility] 08-18-2023 10:04-0500 Diastolic blood pressure 67 mm[Hg] Martha Praisler-Wood DIE PRESSER.[employer] Work Phone: [facility] 08-18-2023 10:04-0500 Heart rate 92 /min Martha Praisler-Wood DIE PRESSER.[employer] Work Phone: [facility] 08-18-2023 10:04-0500 Respiratory rate 18 /min Martha Praisler-Wood DIE PRESSER.[employer] Work Phone: [facility] 08-18-2023 10:04-0500 SaO2% (BldA) [Mass fraction] 97 % Martha Praisler-Wood DIE PRESSER.[employer] Work Phone: [facility] 08-18-2023 10:04-0500 Systolic blood pressure 121 mm[Hg] Martha Praisler-Wood DIE PRESSER.[employer] Work Phone: [facility] 10-28-2022 08:33-0400 Body temperature 98.29 [degF] Jennie Older DIE PRESSER.[employer]ER Work Phone: [facility] 10-28-2022 08:33-0400 Body weight 123.65 kg Jennie Older DIE PRESSER.[employer] Work Phone: [facility] 10-28-2022 08:33-0400 Diastolic blood pressure 90 mm[Hg] Jennie Older DIE PRESSER.[employer] Work Phone: [facility] 10-28-2022 08:33-0400 Heart rate 85 /min Jennie Older DIE PRESSER.[employer] Work Phone: [facility] 10-28-2022 08:33-0400 Respiratory rate 21 /min Jennie Older DIE PRESSER.[employer] Work Phone: [facility] 10-28-2022 08:33-0400 SaO2% (BldA) [Mass fraction] 97 % Jennie Older DIE PRESSER.[employer] Work Phone: [facility] 10-28-2022 08:33-0400 Systolic blood pressure 124 mm[Hg] Jennie Older DIE PRESSER.[employer] Work Phone: [facility] 07-11-2022 15:08-0500 Body height 165.1 cm No Primary Care Physician [facility] 07-11-2022 15:03-0500 Body mass index (BMI) [Ratio] 44.2 kg/m2 No Primary Care Physician [facility] 07-11-2022 15:03-0500 Body weight 120.65 kg No Primary Care Physician [facility] 07-11-2022 15:03-0500 Diastolic blood pressure 75 mm[Hg] No Primary Care Physician [facility] 07-11-2022 15:03-0500 Systolic blood pressure 126 mm[Hg] No Primary Care Physician [facility] 06-05-2022 14:49-0500 Body mass index (BMI) [Ratio] 43.6 kg/m2 No Primary Care Physician [facility] 06-05-2022 14:49-0500 Body weight 118.84 kg No Primary Care Physician [facility] 06-05-2022 14:49-0500 Diastolic blood pressure 82 mm[Hg] No Primary Care Physician [facility] 06-05-2022 14:49-0500 Systolic blood pressure 118 mm[Hg] No Primary Care Physician [facility] 05-24-2022 07:55-0500 Body temperature 97.4 [degF] No Primary Care Physician [facility] 05-24-2022 07:55-0500 Diastolic blood pressure 58 mm[Hg] No Primary Care Physician [facility] 05-24-2022 07:55-0500 Heart rate 78 /min No Primary Care Physician [facility] 05-24-2022 07:55-0500 Respiratory rate 18 /min No Primary Care Physician [facility] 05-24-2022 07:55-0500 SaO2% (BldA) [Mass fraction] 96 % No Primary Care Physician [facility] 05-24-2022 07:55-0500 Systolic blood pressure 125 mm[Hg] No Primary Care Physician [facility] 05-21-2022 03:25-0500 Body height 165.1 cm No Primary Care Physician [facility] Work Phone: 05-21-2022 03:25-0500 Body mass index (BMI) [Ratio] 46.5 kg/m2 No Primary Care Physician [facility] 05-21-2022 03:25-0500 Body weight 127 kg No Primary Care Physician [facility] 05-18-2022 15:17-0500 Body mass index (BMI) [Ratio] 47.6 kg/m2 No Primary Care Physician [facility] 05-18-2022 15:17-0500 Body weight 129.78 kg No Primary Care Physician [facility] 05-18-2022 15:17-0500 Diastolic blood pressure 71 mm[Hg] No Primary Care Physician [facility] 05-18-2022 15:17-0500 Systolic blood pressure 121 mm[Hg] No Primary Care Physician [facility] 05-15-2022 15:08-0500 Body height 165.1 cm No Primary Care Physician [facility] Work Phone: 05-15-2022 15:08-0500 Body mass index (BMI) [Ratio] 47.5 kg/m2 No Primary Care Physician [facility] 05-15-2022 15:08-0500 Body weight 129.5 kg No Primary Care Physician [facility] 05-15-2022 15:08-0500 Diastolic blood pressure 47 mm[Hg] No Primary Care Physician [facility] 05-15-2022 15:08-0500 Systolic blood pressure 93 mm[Hg] No Primary Care Physician [facility] 05-11-2022 15:49-0400 Body mass index (BMI) [Ratio] 47.1 kg/m2 No Primary Care Physician [facility] 05-11-2022 15:49-0400 Body weight 128.48 kg No Primary Care Physician [facility] 05-11-2022 15:49-0400 Diastolic blood pressure 57 mm[Hg] No Primary Care Physician [facility] 05-11-2022 15:49-0400 Systolic blood pressure 113 mm[Hg] No Primary Care Physician [facility] 05-04-2022 14:14-0400 Body height 165.1 cm No Primary Care Physician [facility] Work Phone: 05-04-2022 14:13-0400 Body mass index (BMI) [Ratio] 48.1 kg/m2 No Primary Care Physician [facility] 05-04-2022 14:13-0400 Body weight 131.08 kg No Primary Care Physician [facility] 05-04-2022 14:13-0400 Diastolic blood pressure 82 mm[Hg] No Primary Care Physician [facility] 05-04-2022 14:13-0400 Systolic blood pressure 122 mm[Hg] No Primary Care Physician [facility] 04-27-2022 15:53-0400 Body mass index (BMI) [Ratio] 47.2 kg/m2 No Primary Care Physician [facility] 04-27-2022 15:53-0400 Body weight 128.82 kg No Primary Care Physician [facility] 04-27-2022 15:53-0400 Diastolic blood pressure 76 mm[Hg] No Primary Care Physician [facility] 04-27-2022 15:53-0400 Systolic blood pressure 124 mm[Hg] No Primary Care Physician [facility] 04-12-2022 08:42-0400 Body temperature 98.2 [degF] No Primary Care Physician [facility] 04-12-2022 08:42-0400 Diastolic blood pressure 59 mm[Hg] No Primary Care Physician [facility] 04-12-2022 08:42-0400 Heart rate 92 /min No Primary Care Physician [facility] 04-12-2022 08:42-0400 Systolic blood pressure 121 mm[Hg] No Primary Care Physician [facility] 04-12-2022 08:37-0400 Body height 165.1 cm No Primary Care Physician [facility] Work Phone: 04-12-2022 08:37-0400 Body mass index (BMI) [Ratio] 46.6 kg/m2 No Primary Care Physician [facility] 04-12-2022 08:37-0400 Body weight 127.1 kg No Primary Care Physician [facility] 03-30-2022 15:32-0400 Body height 165.1 cm No Primary Care Physician [facility] Work Phone: 03-30-2022 15:31-0400 Body mass index (BMI) [Ratio] 46.7 kg/m2 No Primary Care Physician [facility] 03-30-2022 15:31-0400 Body weight 127.45 kg No Primary Care Physician [facility] 03-30-2022 15:31-0400 Diastolic blood pressure 76 mm[Hg] No Primary Care Physician [facility] 03-30-2022 15:31-0400 Systolic blood pressure 124 mm[Hg] No Primary Care Physician [facility] 03-22-2022 15:37-0400 Diastolic blood pressure 60 mm[Hg] No Primary Care Physician [facility] Work Phone: 03-22-2022 15:37-0400 Heart rate 94 /min No Primary Care Physician [facility] Work Phone: 03-22-2022 15:37-0400 Systolic blood pressure 127 mm[Hg] No Primary Care Physician [facility] Work Phone: 03-22-2022 15:29-0400 Body temperature 98.8 [degF] No Primary Care Physician [facility] Work Phone: 03-22-2022 15:29-0400 SaO2% (BldA) [Mass fraction] 98 % No Primary Care Physician [facility] Work Phone: 03-22-2022 15:28-0400 Body height 165.1 cm No Primary Care Physician [facility] Work Phone: 03-22-2022 15:28-0400 Body mass index (BMI) [Ratio] 46.3 kg/m2 No Primary Care Physician [facility] Work Phone: 03-22-2022 15:28-0400 Body weight 126.2 kg No Primary Care Physician [facility] Work Phone: 03-16-2022 14:43-0400 Body mass index (BMI) [Ratio] 46.1 kg/m2 No Primary Care Physician [facility] Work Phone: 03-16-2022 14:43-0400 Body temperature 98.7 [degF] No Primary Care Physician [facility] Work Phone: 03-16-2022 14:43-0400 Body weight 125.87 kg No Primary Care Physician [facility] Work Phone: 03-16-2022 14:43-0400 Diastolic blood pressure 83 mm[Hg] No Primary Care Physician [facility] Work Phone: 03-16-2022 14:43-0400 Heart rate 95 /min No Primary Care Physician [facility] Work Phone: 03-16-2022 14:43-0400 Respiratory rate 16 /min No Primary Care Physician [facility] Work Phone: 03-16-2022 14:43-0400 SaO2% (BldA) [Mass fraction] 96 % No Primary Care Physician [facility] Work Phone: 03-16-2022 14:43-0400 Systolic blood pressure 132 mm[Hg] No Primary Care Physician [facility] Work Phone: 03-08-2022 11:30-0400 Body mass index (BMI) [Ratio] 45.6 kg/m2 No Primary Care Physician [facility] Work Phone: 03-08-2022 11:30-0400 Body weight 124.28 kg No Primary Care Physician [facility] Work Phone: 03-08-2022 11:30-0400 Diastolic blood pressure 78 mm[Hg] No Primary Care Physician [facility] Work Phone: 03-08-2022 11:30-0400 Systolic blood pressure 110 mm[Hg] No Primary Care Physician [facility] Work Phone: 02-26-2022 13:38-0400 Body height 165.[address] Zaid Garcai Work Phone: [facility] Work Phone: 02-26-2022 13:38-0400 Body mass index (BMI) [Ratio] 45.2 kg/m2 Dr. aZid Garcia Work Phone: [facility] Work Phone: 02-26-2022 13:38-0400 Body weight 123.[address] Zaid Garcia Work Phone: [facility] Work Phone: 02-26-2022 13:38-0400 Diastolic blood pressure 76 mm[Hg] Dr. Zaid Garcia Work Phone: [facility] Work Phone: 02-26-2022 13:38-0400 Systolic blood pressure 138 mm[Hg] Dr. Zaid Garcia Work Phone: [facility] Work Phone: 01-31-2022 15:04-0400 Diastolic blood pressure 70 mm[Hg] Dr. Zaid Garcia Work Phone: [facility] Work Phone: 01-31-2022 15:04-0400 Systolic blood pressure 124 mm[Hg] Dr. Zaid Garcia Work Phone: [facility] Work Phone: 01-31-2022 14:48-0400 Body mass index (BMI) [Ratio] 44.6 kg/m2 Dr. Zaid Garcia Work Phone: [facility] Work Phone: 01-31-2022 14:48-0400 Body weight 121.[address] Zaid Garcia Work Phone: [facility] Work Phone: 01-05-2022 15:40-0400 Body mass index (BMI) [Ratio] 43.9 kg/m2 Dr. Zaid Garcia Work Phone: [facility] Work Phone: 01-05-2022 15:40-0400 Body weight 119.[address] Zaid Garcia Work Phone: [facility] Work Phone: 01-05-2022 15:40-0400 Diastolic blood pressure 78 mm[Hg] Dr. Zaid Garcia Work Phone: [facility] Work Phone: 01-05-2022 15:40-0400 Systolic blood pressure 122 mm[Hg] Dr. Zaid Garcia Work Phone: [facility] Work Phone: 12-08-2021 14:20-0400 Body weight 119.[address] Zaid Garcia Work Phone: [facility] Work Phone: 12-08-2021 14:20-0400 Diastolic blood pressure 78 mm[Hg] Dr. Zaid Garcia Work Phone: [facility] Work Phone: 12-08-2021 14:20-0400 Systolic blood pressure 110 mm[Hg] Dr. Zaid Garcia Work Phone: [facility] Work Phone: 11-07-2021 14:26-0400 Body mass index (BMI) [Ratio] 42.8 kg/m2 Dr. Zaid Garcia Work Phone: [facility] Work Phone: 11-07-2021 14:26-0400 Body weight 116.[address] Zaid Garcia Work Phone: [facility] Work Phone: 11-07-2021 14:26-0400 Diastolic blood pressure 80 mm[Hg] Dr. Zaid Garcia Work Phone: [facility] Work Phone: 11-07-2021 14:26-0400 Systolic blood pressure 138 mm[Hg] Dr. Zaid Garcia Work Phone: [facility] Work Phone: 11-07-2021 14:26-0400 Body height 165.[address] Zaid Garcia Work Phone: [facility] Work Phone: 11-07-2021 14:26-0400 Body mass index (BMI) [Ratio] 42.8 kg/m2 Dr. Zaid Garcia Work Phone: [facility] Work Phone: 11-07-2021 14:26-0400 Body weight 116.[address] Zaid Garcia Work Phone: [facility] Work Phone: 11-07-2021 14:26-0400 Diastolic blood pressure 80 mm[Hg] Dr. Zaid Garcia Work Phone: [facility] Work Phone: 11-07-2021 14:26-0400 Systolic blood pressure 138 mm[Hg] Dr. Zaid Garcia Work Phone: [facility] Work Phone: Encounters Encounter Date Encounter Type Care Provider Facility Start: 05-14-2025 End: 05-14-2025 ambulatory Jn Fink [place] Start: 05-14-2025 End: 05-14-2025 ambulatory Jn Fink Facility:[facility] Start: 05-06-2025 End: 05-06-2025 ambulatory Liz SMITH Facility:[facility] Start: 04-29-2025 End: 04-29-2025 Patient encounter procedure Liz SMITH-C -[facility] Work Phone: Start: 04-29-2025 End: 04-29-2025 ambulatory Liz SMITH Facility:[facility] Start: 04-28-2025 End: 04-28-[address] Ashley Mullen MD -[facility] Work Phone: Start: 04-28-2025 End: 04-28-2025 ambulatory Stacey Santacruz [place] Start: 04-26-2025 End: 04-26-[address] Ashley Mullen MD -[facility] Work Phone: Start: 04-26-2025 End: 04-26-2025 ambulatory Stacey Santacruz MD Work Phone: -[facility] Start: 04-22-2025 End: 04-22-2025 ambulatory PRUDENCE REYES [facility] Start: 04-02-2025 End: 04-02-[address] Damian Antunez MD -[facility] Work Phone: Start: 04-02-2025 End: 04-02-2025 ambulatory Stacey Santacruz MD Work Phone: -[facility] Start: 04-01-2025 End: 04-01-[address] Prudence Law DO -[facility] Work Phone: Start: 04-01-2025 End: 04-01-2025 ambulatory Stacey Santacruz MD Work Phone: -[facility] Start: 03-11-2025 End: 03-11-2025 ambulatory Stacey Santacruz MD Work Phone: -[facility] Start: 03-11-2025 End: 03-11-[address] Prudence Law DO -[facility] Work Phone: Start: 03-11-2025 End: 03-11-2025 ambulatory Prudence Law Facility:[facility] Start: 02-26-2025 End: 02-26-2025 ambulatory Stacey Santacruz MD Work Phone: -[facility] Start: 02-26-2025 End: 02-26-[address] Ashley Mullen MD -[facility] Work Phone: Start: 02-26-2025 End: 02-26-[address] Ashley Mullen MD -[facility] Work Phone: Start: 02-26-2025 End: 02-26-2025 ambulatory Stacey Santacruz MD Work Phone: -[facility] Start: 02-26-2025 End: 02-26-2025 ambulatory Stacey Santacruz Facility:[facility] Start: 02-12-2025 End: 02-12-2025 ambulatory Stacey Santacruz MD Work Phone: -Ultrasound H Start: 02-12-2025 End: 02-12-2025 Patient encounter procedure Berna Keane CN -Ultrasound [facility] Work Phone: Start: 02-12-2025 End: 02-12-2025 ambulatory Stacey Santacruz Facility:[facility] Start: 02-02-2025 End: 02-02-[address] Ashley Mullen MD -[facility] Work Phone: Start: 02-02-2025 End: 02-02-2025 ambulatory Stacey Santacruz MD Work Phone: -[facility] Start: 01-28-2025 End: 01-28-2025 ambulatory Stacey Santacruz MD Work Phone: -Laboratory [facility] Start: 01-28-2025 End: 01-28-[address] Stacey Santacruz MD -Laboratory [facility] Start: 01-28-2025 End: 01-28-2025 ambulatory Stacey Santacruz Facility:[facility] Start: 01-26-2025 End: 01-26-2025 ambulatory JONATHAN WHELAN Facility:[facility] Start: 01-26-2025 End: 01-26-2025 Patient encounter procedure Jonathan SMITH Work Phone: [facility] [place] Comment on above: URI, acute (Primary Dx); Sore throat Start: 01-22-2025 End: 01-22-2025 ambulatory Stacey Santacruz MD Work Phone: -Laboratory [employer] Start: 01-22-2025 End: 01-22-[address] Stacey [facility]acruz [facility] Start: 01-22-2025 End: 01-22-2025 ambulatory Stacey Santacruz Facility:[facility] Start: 01-14-2025 End: 01-14-2025 Follow-up encounter Jonathan SMITH Work Phone: [facility] Start: 01-13-2025 End: 01-13-2025 ambulatory TORO SAUL Facility:[facility] Start: 01-13-2025 End: 01-13-2025 Office outpatient visit 25 minutes Toro Saul MD Work Phone: [facility] [place] Comment on above: Vaginal discharge (P rimary Dx) Start: 12-04-2024 End: 12-04-2024 ambulatory Stacey Santacruz MD Work Phone: [facility] Work Phone: Start: 12-04-2024 End: 12-04-[address] Stacey Santacruz MD -Laboratory [facility] Work Phone: Start: 12-04-2024 End: 12-04-2024 ambulatory Stacey Santacruz Facility:[facility] Start: 10-01-2024 End: 10-01-2024 Emergency department patient visit Stacey Santacruz MD Work Phone: -Emergency Department Work Phone: Start: 09-30-2024 End: 09-30-2024 ambulatory Stacey Santacruz MD Work Phone: [facility] Work Phone: Start: 09-30-2024 End: 09-30-2024 Patient encounter procedure Jocelyn GOMEZ -Ultrasound, [facility] Work Phone: Start: 09-30-2024 End: 09-30-2024 ambulatory Stacey Satnacruz MD Work Phone: [facility] Work Phone: Start: 09-30-2024 End: 09-30-2024 Patient encounter procedure Julio Cesar Michael BOAT DETAILERPatrick -Laboratory, [facility] Start: 09-30-2024 End: 09-30-2024 ambulatory Stacey Alanis Facility:[facility] Start: 09-24-2024 End: 09-24-2024 Patient encounter procedure Barbra Torrez PA-C Work Phone: [facility] Comment on above: Right upper quadrant abdominal pain (Primary Dx) Start: 09-24-2024 End: 09-24-2024 Emergency department patient visit Stacey Santacruz MD Work Phone: -Emergency Department Work Phone: Start: 09-24-2024 End: 09-24-2024 ambulatory TORO SAUL Facility:[facility] Start: 09-07-2024 End: 09-07-[address] Prudence Law DO -[facility] Work Phone: Start: 09-07-2024 End: 09-07-2024 ambulatory Stacey Santacruz [place] Start: 09-07-2024 End: 09-07-2024 ambulatory Stacey Santacruz MD Work Phone: [facility] Work Phone: Start: 09-07-2024 End: 09-07-[address] Prudence Law DO -Ultrasound, [facility] Work Phone: Start: 09-07-2024 End: 09-07-2024 ambulatory Prudence Law Facility:[facility] Start: 09-03-2024 End: 09-03-2024 Emergency department patient visit Stacey Santacruz MD Work Phone: -Emergency Department Work Phone: Start: 09-02-2024 End: 09-02-2024 ambulatory Stacey Santacruz MD Work Phone: [facility] Work Phone: Start: 09-02-2024 End: 09-02-[address] Prudence Law DO -Lab, [facility] Start: 09-02-2024 End: 09-02-2024 ambulatory Prudence Law Facility:[facility] Start: 08-31-2024 End: 08-31-2024 Patient encounter procedure Berna Keane CNM -Lab, [facility] Start: 08-31-2024 End: 08-31-2024 ambulatory Berna Keane Facility:[facility] Start: 08-26-2024 End: 08-26-2024 Patient encounter procedure Jocelyn Gomez BOAT DETAILER-C -Laboratory, [facility] Work Phone: Start: 08-26-2024 End: 08-26-2024 ambulatory Jocelyn Gomez NP Facility:[facility] Start: 08-23-2024 End: 08-24-2024 Follow-up encounter Kiarra Goodwin DIE PRESSER.[employer] Work Phone: [facility] Start: 08-21-2024 End: 08-21-2024 Patient encounter procedure Martha Hansen DIE PRESSER.[employer]ER Work Phone: [facility] Comment on above: Bacterial sinusitis (Primary Dx); Missed period; Other acute nonsuppurative otitis media of both ears, recurrence not specified; Fatigue, unspecified type Start: 08-21-2024 End: 08-21-2024 ambulatory TORO SAUL Facility:[facility] Start: 08-01-2024 End: 08-01-2024 Emergency department patient visit Dr. Khadar Abrams DO -Emergency Department Work Phone: Start: 08-01-2024 End: 08-01-2024 ambulatory TOROJUSTO CARMICHAELSAUL Facility:[facility] Start: 07-24-2024 End: 07-24-[address] Ashley Mullen MD -Laboratory Work Phone: Start: 07-24-2024 End: 07-24-2024 ambulatory Ashley Mullen Facility:[facility] Start: 07-13-2024 End: 07-13-2024 Patient encounter procedure Julio Cesar Alec BOAT DETAILEREveC -Laboratory, [facility] Start: 07-13-2024 End: 07-13-2024 ambulatory Ninajacqueline Alanis Facility:[facility] Start: 05-02-2024 End: 05-02-2024 ambulatory TORO SAUL Facility:[facility] Start: 05-02-2024 End: 05-02-2024 Patient encounter procedure Kiarra Goodwin APRN.C[employer]AR HEAD PIERCER Work Phone: [email or web address] Comment on above: Acute otitis media, left (Primary Dx); URI, acute Start: 03-17-2024 End: 03-17-2024 Patient encounter procedure Jonathan SMITH Work Phone: [facility] Comment on above: Acute otitis media, left (Primary Dx); Lymphadenopathy, postauricular Start: 03-17-2024 End: 03-17-2024 ambulatory TORO SAUL Facility:[facility] Start: 12-12-2023 Telephone encounter Gregorio pardo APRN.[employer]ERCER Work Phone: [facility] Comment on above: Results Start: 12-11-2023 End: 12-11-2023 Office outpatient visit 15 minutes Gregorio Ayala APRN.[employer]ERCER Work Phone: [facility] Comment on above: Pharyngitis, unspeci fied etiology (Primary Dx) Start: 12-02-2023 End: 12-02-2023 Patient encounter procedure Tiffany Grover PA-C Work Phone: [facility] Comment on above: Acute URI (Primary D x) Start: 11-23-2023 End: 11-23-2023 Patient encounter procedure Vonda Chris DIE PRESSER.CIGAR HEAD PIERCER Work Phone: [facility] Comment on above: Acute otitis media, right (Primary Dx) Start: 10-20-2023 End: 10-20-2023 Emergency department patient visit [facility] Work Phone: Start: 10-02-2023 End: 10-02-2023 ambulatory [facility] Work Phone: Start: 10-02-2023 End: 10-02-2023 Patient encounter procedure [facility] Start: 08-18-2023 End: 08-18-2023 Patient encounter procedure Martha Hansen DIE PRESSER.CIGAR HEAD PIERCER Work Phone: [facility] Comment on above: Other acute nonsuppu rative otitis media of both ears, recurrence not specified (Primary Dx) Start: 03-04-2023 End: 03-04-2023 ambulatory [facility] Work Phone: Start: 03-04-2023 End: 03-04-2023 Patient encounter procedure [facility], [facility] Work Phone: Start: 02-27-2023 End: 02-27-2023 Patient encounter procedure [facility] Start: 02-25-2023 End: 02-25-2023 ambulatory [facility] Work Phone: Start: 02-25-2023 End: 02-25-2023 Patient encounter procedure [facility] Work Phone: Start: 11-30-2022 End: 11-30-2022 ambulatory [facility] Work Phone: Start: 11-30-2022 End: 11-30-2022 Patient encounter procedure [facility] Start: 10-28-2022 End: 10-28-2022 Patient encounter procedure Jennie Pastrana DIE PRESSER.C[employer]AR HEAD PIERCER Work Phone: [facility] Comment on above: Acute otitis media, left (Primary Dx) Start: 07-11-2022 End: 07-11-2022 ambulatory No Primary Care Physician [facility] Work Phone: Start: 07-11-2022 End: 07-11-2022 Patient encounter procedure No Primary Care Physician [facility]-Laboratory, Specimen Start: 07-11-2022 End: 07-11-2022 Patient encounter procedure No Primary Care Physician [facility] Start: 06-05-2022 End: 06-05-2022 Patient encounter procedure No Primary Care Physician [facility] Start: 05-30-2022 End: 05-30-2022 Patient encounter procedure No Primary Care Physician [facility] Start: 05-24-2022 Non-patient / Non-visit No Tatum pat Care Physician [facility] Start: 05-23-2022 Non-patient / Non-visit No Tatum pat Care Physician [facility] Start: 05-22-2022 Non-patient / Non-visit No Tatum pat Care Physician [facility] Start: 05-21-2022 Non-patient / Non-visit No Tatum pat Care Physician [facility] Start: 05-21-2022 End: 05-24-2022 Evaluation and management of inpatient No [facility] Start: 05-18-2022 End: 05-18-2022 ambulatory No Primary Care Physician [facility] Work Phone: Start: 05-18-2022 End: 05-18-2022 Patient encounter procedure No Primary Care Physician [facility] Start: 05-15-2022 End: 05-15-2022 Patient encounter procedure No Primary Care Physician [facility] Start: 05-11-2022 End: 05-11-2022 Patient encounter procedure No Primary Care Physician [facility] Start: 05-11-2022 End: 05-11-2022 ambulatory No Primary Care Physician [facility] Work Phone: Start: 05-11-2022 End: 05-11-2022 Patient encounter procedure No Primary Care Physician [facility]-Ultrasound, [facility] Start: 05-09-2022 End: 05-09-2022 Patient encounter procedure No Primary Care Physician [facility]-Laboratory Start: 05-04-2022 End: 05-04-2022 ambulatory No Primary Care Physician [facility] Work Phone: Start: 05-04-2022 End: 05-04-2022 Patient encounter procedure No Primary Care Physician [facility] Start: 04-27-2022 End: 04-27-2022 Patient encounter procedure No Primary Care Physician [facility] Start: 04-16-2022 Non-patient / Non-visit No Tatum Cartwright Physician [facility] Start: 04-12-2022 End: 04-12-2022 ambulatory No Primary Care Physician [facility] Work Phone: Start: 04-12-2022 End: 04-12-2022 Patient encounter procedure No Primary Care Physician [facility] Start: 04-06-2022 End: 04-06-2022 ambulatory No Primary Care Physician [facility] Work Phone: Start: 04-06-2022 End: 04-06-2022 Patient encounter procedure No Primary Care Physician [facility] Start: 03-30-2022 End: 03-30-2022 ambulatory No Primary Care Physician [facility] Work Phone: Start: 03-30-2022 End: 03-30-2022 Patient encounter procedure No Primary Care Physician [facility] Start: 03-22-2022 Non-patient / Non-visit No Tatum pat Care Physician [facility] Start: 03-22-2022 End: 03-22-2022 ambulatory No [facility] Work Phone: Start: 03-22-2022 End: 03-22-2022 Patient encounter procedure No [facility] Start: 03-16-2022 End: 03-16-2022 Patient encounter procedure No Primary Care Physician [facility] Start: 03-08-2022 End: 03-08-2022 Patient encounter procedure No Primary Care Physician [facility] Start: 02-26-2022 End: 02-26-[address] Zaid Garcia Work Phone: [facility] Start: 02-23-2022 End: 02-23-[address] Zaid Garcia Work Phone: [facility] Work Phone: Start: 02-23-2022 End: 02-23-[address] Zaid Garcia Work Phone: [facility] Start: 01-31-2022 End: 01-31-[address] Zaid Garcia Work Phone: [facility] Start: 01-16-2022 End: 01-16-[address] Zaid Garcia Work Phone: [facility] Start: 01-05-2022 End: 01-05-[address] Zaid Garcia Work Phone: [facility] Start: 12-08-2021 End: 12-08-[address] Zaid Garcia Work Phone: [facility] Start: 11-07-2021 End: 11-07-[address] [facility]aid [facility] Start: 11-07-2021 End: 11-07-[address] Zaid Garcia Work Phone: [facility] Start: 10-24-2021 Non-patient / Non-visit Dr. Yue Garcia Work Phone: [facility] Start: 10-17-2021 End: 10-17-2021 Patient encounter procedure [facility], [facility] Procedures Date Procedure Procedure Detail Performing Clinician Start: 05-14-2025 Microbial culture, routine Stacey Santacruz MD Work Phone: Start: 03-11-2025 Hepatitis C antibody measurement Stacey Santacruz MD Work Phone: Comment on above: Reactive: Presumptiv e evidence of antibodies to HCV. Follow CDC recommendations for supplemental testing.Non-Reactive: Antibodies to HCV were not detected; does not exclude the possibility of exposure to HCVReactive Results are presumptive evidence of antibodies to HCV. Follow CDC recommendations for supplemental testing.Order confirmation testing: HCV Quant by PCR testing - HCVPCR #[id number] Non Reactive: < 0.8 Equivocal: >/= 0.8 to < 1.0 Reactive: >/= 1.0The CDC requires that a reactive/equivocal HCV antibody result be sent out for confirmation. HCV Quant by PCR testing. Start: 03-11-2025 Procedure Stacey tijerina MD Work Phone: Comment on above: Test Ordered: [id number] TSH Receptor Antibody (TBII)TSH Receptor Antibody (TBII) <0.5 U/L ES Reference Range: .Reference Range:Antibody Titer:<1.0 U/L = Negative1.1 - 1.5 U/L = Equivocal>1.5 U/L = PositivePerformed at: ES - [facility] [address] [id number] Director: Ashlyn Tai MD, Phone: [phone] at: - [facility] [address] [id number] Director: Matthew Rascon PhD, Phone: [phone] Start: 03-11-2025 Rubella IgG measurement Stacey Santacruz MD Work Phone: Comment on above: Antibody Result: Int erpretationNon-Reactive: Non- ImmuneReactive: ImmuneThe following results were obtained with the [employer] Rubella IgG assay. Results from assays of other manufacturers cannot be used interchangeably. Start: 03-11-2025 Serologic test for syphilis Stacey Santacruz MD Work Phone: Start: 02-26-2025 Urine culture Stacey fountain MD Work Phone: Start: 02-12-2025 Transvaginal obstetr ic ultrasonography Stacey Santacruz MD Work Phone: Start: 01-26-2025 Iadna streptococcus group a amplified probe tq Kotalakeboby Oliveira Ababdulaziz PA Work Phone: Start: 01-13-2025 BACTERIAL VAGINOSIS NAAT Toro Saul MD Work Phone: Start: 01-13-2025 Iadna trichomonas va ginalis amplified probe tech Toro Saul MD Work Phone: Start: 10-02-2024 Urine culture Stacey fountain MD Work Phone: Start: 10-01-2024 Computed tomography of abdomen and pelvis with intravenous contrast Stacey Santacruz MD Work Phone: Start: 10-01-2024 Estimated creatinine clearance Stacey Santacruz MD Work Phone: Start: 10-01-2024 Urnls dip stick/tabl et reagent auto microscopy Stacey Santacruz MD Work Phone: Start: 09-30-2024 Transvaginal obstetr ic ultrasonography Stacey Santacruz MD Work Phone: Start: 09-30-2024 Urine culture Stacey fountain MD Work Phone: Start: 09-30-2024 Urnls dip stick/tabl et reagent auto microscopy Stacey Santacruz MD Work Phone: Start: 09-24-2024 CT of abdomen and pe lvis without contrast Stacey Santacruz MD Work Phone: Start: 09-24-2024 Urnls dip stick/tabl et reagent auto microscopy Stacey Santacruz MD Work Phone: Start: 09-24-2024 Estimated creatinine clearance Stacey Santcaruz MD Work Phone: Start: 09-07-2024 Transvaginal obstetr ic ultrasonography Stacey Santacruz MD Work Phone: Start: 09-03-2024 Estimated creatinine clearance Stacey Santacruz MD Work Phone: Start: 09-03-2024 Transvaginal obstetr ic ultrasonography Stacey Santacruz MD Work Phone: Start: 08-21-2024 Urnls dip stick/tabl et rgnt auto w/o microscopy Martha Hansen DIE PRESSER.[employer]AR HEAD PIERCER Work Phone: Start: 08-21-2024 UA DIP,URINE HCG (POC) Martha Hansen DIE PRESSER.[employer]ERCER Work Phone: Start: 08-01-2024 Computed tomography of abdomen and pelvis with intravenous contrast Stacey Santacruz MD Work Phone: Start: 12-02-2023 STREP A MOLECULAR (POC) Kiarra Goodwin DIE PRESSER.[employer]IG[employer] HEAD PIERCER Work Phone: Start: 03-04-2023 Transvaginal echography Start: 05-18-2022 Ultrasonography for biophysical profile without non-stress testing No Primary Care Physician Start: 05-11-2022 Ultrasonography for biophysical profile without non-stress testing No Primary Care Physician Start: 05-04-2022 Ultrasound scan for growth No Primary Care Physician Start: 04-06-2022 Ultrasound scan for growth No Primary Care Physician Start: 01-16-[address] Zaid Garcia Work Phone: Start: 11-07-[address] Zaid Garcia Work Phone: Start: 10-17-2021 Transvaginal obstetr ic ultrasonography Group B Streptococcu s Culture No Primary Care Physician Group B Streptococcu s Culture No Primary Care Physician H/O: section Status pos t delivery No Primary Care Physician H/O: section Hx of cesa rean section Stacey Santacruz MD Work Phone: Comment on above: prev cs with JV H/O: section Hx of cesa rean section Dr. Ashley Mullen MD H/O: section Hx of cesa rean section Dr. Prudence Law DO H/O: section Hx of cesa rean section Dr. Ashley Mullen MD H/O: section Hx of cesa rean section Dr. Ashley Mullen MD Urine culture Dr. Zaid oliveira Work Phone: Plan of Treatment Date Care Activity Detail Author Start: 05-04-2026 Urine microalbumin profile DTa P,Tdap,Td Vaccine (2 - Td or Tdap) [facility] Start: 05-14-2025 End: 05-14-2025 Patient encounter procedure -[facility] Work Phone: Start: 05-14-2025 Gram stain microscopy Gram Stain [facility] Start: 05-14-2025 Microbial culture, routine Wound Cul ture [facility] Start: 05-06-2025 End: 05-06-2025 Patient encounter procedure Perianal abscess -[facility] Work Phone: Start: 04-29-2025 End: 04-29-2025 Patient encounter procedure Perianal abscess -[facility] Work Phone: Start: 03-08-2025 Influenza vaccination Influenz a Vaccine (#1) [facility] Start: 02-18-2025 Chlamydia deoxyribon ucleic acid detection [facility] Start: 10-01-2024 [facility] Start: 09-30-2024 Bacteria identified in Urine by Culture Urine Culture [facility] Start: 09-30-2024 [facility] Start: 09-24-2024 [facility] Start: 09-03-2024 [facility] Start: 08-01-2024 [facility] Start: 03-08-2024 Covid-19 Vaccine ( season) Covid-19 Vaccine () [facility] Start: 03-08-2024 Covid-19 Vaccine ( season) Covid-19 Vaccine ( season) [facility] Start: 03-08-2024 [facility] Start: 10-20-2023 [facility] Start: 10-20-2023 Transvaginal echography Transv aginal Non- [facility] Start: 07-08-2023 Behavioral Health Screening Be havioral Health Screening [facility] Start: 07-08-2023 Depression Assessment Depression Ass essment [facility] Start: 03-08-2023 Covid-19 Vaccine ( season) Covid-19 Vaccine ( season) [facility] Start: 03-08-2023 [facility] Start: 07-08-2022 DEPRESSION ASSESSMENT DEPRESSION ASS ESSMENT [facility] Start: 05-24-2022 Patient discharge [facility] Start: 05-24-2022 [facility] Start: 05-22-2022 Application of abdom inal corset [facility] Start: 05-21-2022 Administration of medication [facility] Start: 05-21-2022 Ambulation therapy management [facility] Start: 05-21-2022 Application of device W [facility] Start: 05-21-2022 End: 05-21-2022 Application of intermittent pneumatic compression device [facility] Start: 05-21-2022 Assessment of risk o f venous thromboembolism [facility] Start: 05-21-2022 Catheterization of vein [facility] Start: 05-21-2022 Deep breathing and c oughing exercises [facility] Start: 05-21-2022 Exercises [facility] Start: 05-21-2022 Incentive spirometry [facility] Start: 05-21-2022 Measuring intake and output [facility] Start: 05-21-2022 Notification of physician [facility] Start: 05-21-2022 Procedure discontinued [facility] Start: 05-21-2022 Provision of activit y privileges [facility] Start: 05-21-2022 Vital signs measurements [facility] Start: 05-21-2022 Wound care [facility] Start: 05-21-2022 [facility] Start: 05-21-2022 Application of abdom inal corset [facility] Start: 05-21-2022 Admission procedure [facility] Start: 05-21-2022 Consultation [facility] Start: 05-11-2022 Biophysical pr ofile panel US [facility] Work Phone: Start: 05-11-2022 Ultrasonography for biophysical profile without non-stress testing Biophysical Prof W/O Non Stres [facility] Work Phone: Start: 04-12-2022 Nonstress test [facility] Start: 04-12-2022 Obstetric monitoring [facility] Start: 04-12-2022 Vital signs measurements [facility] Start: 04-12-2022 [facility] Start: 04-12-2022 Patient discharge [facility] Start: 03-22-2022 Nonstress test [facility] Work Phone: Start: 03-22-2022 Obstetric monitoring [facility] Work Phone: Start: 03-22-2022 Vital signs measurements [facility] Work Phone: Start: 03-22-2022 [facility] Work Phone: Start: 03-20-2022 PAP TESTING PAP TESTING [facility] Start: 03-20-2022 Screening for malign ant neoplasm of cervix [facility] Start: 2013 Hepatitis B Vaccine (1 of 3 - 19+ 3-dose series) Hepatitis B Vaccine (1 of 3 - 19+ 3-dose series) [facility] Start: 2013 Urine microalbumin profile DTA P,TDAP,TD (1 - Tdap) [facility] Start: 2012 Anxiety Screening Anxiety Screening [facility] Start: 2012 Depression Screening Depression Scre [facility] Start: 2012 HEPATITIS C SCREENING HEPATITIS C [facility] Start: 2012 Hepatitis C screening Hepatitis C [facility] Start: 2012 HIV SCREENING HIV SCREENING [facility] Start: 2012 HIV screening HIV Screening [facility] Start: 1994 COVID-19 VACCINE (#1) COVID-19 VACCI NE (#1) [facility] Start: 1994 HEPATITIS B (1 of 3 - 3-dose series) HEPATITIS B (1 of 3 - 3-dose series) [facility] Start: 1994 Hepatitis B Vaccine (1 of 3 - 3-dose series) Hepatitis B Vaccine (1 of 3 - 3-dose series) [facility] Bacteria identified in Urine by Culture BACTERIAL CULTURE, URINE Microbiology Routine Fatigue, unspecified type Ordered: 08/21/2024 [facility] Work Phone: Comment on above: Ordered: 08/21/2024 CBC W Auto Different ial panel - Blood [facility] Chlamydia deoxyribon ucleic acid detection [facility] Choriogonadotropin ( test) [Presence] in Serum or Plasma [facility] Biophysical pr ofile panel US [facility] Work Phone: Biophysical pr ofile panel [facility] Hemoglobin A1c/Hemoglobin.total in Blood [facility] Hepatitis C antibody measurement [facility] Patient Education [facility] Work Phone: Patient referral [facility] Work Phone: Procedure [facility] Rubella IgG measurement [facility] Serologic test for syphilis [facility] T4 free measurement [facility] Thyroid stimulating hormone measurement [facility] Urine culture [facility] Urine culture [facility] Work Phone: [facility] Immunizations Immunization Date Immunization Notes Care Provider Campbell madsen 05-04-2016 tetanus toxoid, redu liyah diphtheria toxoid, and acellular pertussis vaccine, adsorbed [facility] Payers Date Payer Category Payer Self-pay [id number] 2018 Blue Cross Blue Shield BLUE CARD PPO OOS Member Subscriber Plan / Payer (Effective 2018-Present) Name: SKYE BRISCOE Relation to Subscriber: Spouse Name: Jigar Briscoe Date of : 1993 (Home) Phone: NA (Work) Address: [address] [place] [address] Payer ID: [id number] (NAIC) Type: PPO Address: [address] [place] [id number] 2018 Unknown [employer]M BLUE CARD PPO OOS [id number] 2018-Present [phone] [address] [place] [address] PPO [id number] 2018 Unknown [id number] 1994 Unknown [id number] 2.840.1.004719.3.579.2 .479 Unknown [id number] Unknown [id number] 2.840.1.876847.3.579.2 .462 Unknown [id number] 2.840.1.265193.3.579.2 .462 Unknown [id number] 2.840.1.003593.3.579.2 .462 Unknown [id number] 2.16840.1.462284.3.579.2 .462 Unknown [id number] 2.16840.1.939282.3.579.2 .462 Unknown [id number] 2.16840.1.314019.3.579.2 .462 Unknown [id number] 2.16840.1.927905.3.579.2 .462 Unknown [id number] 2.16.840.1.483511.3.579.2 .462 Unknown [id number] 2.16.840.1.711002.3.579.2 .462 Unknown [id number] 2.16.840.1.221616.3.579.2 .462 Unknown [id number] 2.16.840.1.255700.3.579.2 .462 Unknown [id number] 2.16.840.1.186891.3.579.2 .462 Unknown [id number] 2.840.1.944668.3.579.2 .462 Unknown [id number] 2.840.1.611835.3.579.2 .462 Unknown [id number] 2.840.1.028101.3.579.2 .462 Unknown [id number] 2.840.1.670950.3.579.2 .462 Unknown [id number] 2.840.1.201306.3.579.2 .462 Unknown [id number] 2.840.1.146669.3.579.2 .462 Unknown [id number] 2.840.1.103837.3.579.2 .462 Unknown [id number] 2.840.1.365489.3.579.2 .462 Unknown [id number] 2.840.1.698168.3.579.2 .462 Unknown [id number] 2..840.1.884773.3.579.2 .462 Unknown [id number] 2.840.1.883409.3.579.2 .462 Unknown [id number] 2.16.840.1.616488.3.579.2 .462 Unknown [id number] 2.16.840.1.514436.3.579.2 .462 Unknown [id number] 2.840.1.817353.3.579.2 .462 Unknown [id number] 2.16.840.1.340416.3.579.2 .462 Unknown [id number] 2.16.840.1.957518.3.579.2 .462 Unknown [id number] 2.16.840.1.749271.3.579.2 .462 Social History Date Type Detail Facility Start: 11-08-2020 End: 10-20-2023 Tobacco smoking status NHIS Unknown if ever smoked [facility] Start: 10-31-2019 None [facility] Start: 10-31-2019 With Family [facility] Start: 11-08-2020 Non-smoker [facility] Start: 1995 Sex Assigned At Female W [facility] Start: 10-28-2022 End: 05-14-2025 Tobacco smoking status WYIS Never smoked tobacco [facility] Start: 10-28-2022 Tobacco use and exposure Smoke less tobacco non-user [facility] Start: 10-28-2022 End: 01-26-2025 Alcohol intake Lifetime non-drinker (finding) [facility] Start: 03-20-2019 History SDOH Alcohol Frequency 1 [facility] Start: 1995 Sex Assigned At Not on file [facility] Start: 03-20-2019 End: 06-14-2020 History of Social function [facility] Work Phone: Start: 03-20-2019 End: 06-14-2020 Alcohol Use Disorder Identification Test - Consumption [AUDIT-C] [facility] Work Phone: How often to you hav e a drink containing alcohol? Never [facility] Work Phone: Average Number of Drinks Not on file [facility] Start: 09-14-2024 End: 10-05-2024 Sex Female (finding) [facility] NEGATED: Highlighted row [facility] Goals Date Patient Goal Desired Activity /State Functional Status Date Assessment Result Facility 05-21-2022 Functional status Activity Ability Post O p [facility] Work Phone: Clinical Notes 07-11-2022 to 04-28-2025 Note Date & Type Note Facility 04-28-2025 Progress note [facility] 04-28-2025 Progress note Note Date/Time April 28, 2025 4:51pm [facility] [address], [address] [place] [address] OFFICE VISIT Date of Service: 04/28/25 MR#: [id number] Acct: [id number] Name: SKYE BRISCOE Rep #: [id number] : 1995 Provider: Dr. Deep Mullen MD Age/Sex: 30/F [place] [facility] [place]: Signed Intake Vital Signs 02/26/25 13:08 04/26/25 14:36 04/28/25 15:18 Height 5 ft 5 in 5 ft 5 in 5 ft 5 in Weight: 231 lb 5 oz BMI 38.5 BP 131/79 H Intake Visit Reasons: 17 WK OB *twins Event Promoter Required: No Is patient in pain?: No Allergies tetracycline Allergy (Mild, Verified 04/28/25 15:25) Hives Medications ?Medication ?Instructions ?Recorded ?Confirmed ?Type multivit-min no.71-iron fum 28 cap PO 02/18/25 5 History mg-folate no.1 1 mg-dha 300 mg capsule (PNV-[place]) amoxicillin 875 mg-potassium 1 tab PO BID #10 tabs 04/28/25 Rx clavulanate 125 mg tablet Last Menstrual Period: 08/25/21 Zika: Zika virus screening: Negative : No PFSH PFSH Medical History Seasonal allergies Ovarian cyst Active labor at term Infertility Thyroid disorder Superficial varicosities Macrosomia Obesity affecting Supervision of normal first Anxiety Surgical History Delivery by section Family History Father Diabetes CAD (coronary artery disease) Hypertension Grandfather Kidney disease Paternal Cancer Maternal- skin Parkinsons disease Paternal Mother Cancer skin Social History adopted: No household members: spouse and children housing: house number of children: 1 current occupational status: employed current occupation: [employer] current occupational exposures/hazards: No pets and animals: Yes (avoid litter box) pets and animals: cat(s) and dog(s) history of recent travel: No sexually active: Yes Smoking Status: Never smoker alcohol intake: current alcohol intake frequency: a few times a month details: not while substance use type: does not use well-balanced diet: daily or most days caffeine: Yes Type: carbonated beverages Number of servings: 1 eating out: 1-3 times/week during the past year weight has: decreased > 10 lbs what type of physical activity do you participate in: weight training frequency: 5-6 times per week duration: 15-30 minutes/day armando/amish: Zoroastrianism seatbelt use: always do you feel safe at home: Yes additional social history: Spouse-JigarEve Medinaricci History 3 Elective abortions Hx Para 1 Spontaneous abortions 1 Hx # Term Pregnancies Ectopic pregnancies Hx # Pregnancies Multiple births # of living children 1 Past Pregnancies Del. Date Name GA/Weeks Outcome Route Bth Weight Gen Labor Lgth Anesthesia Del Locatn Provider FOB 05/21/22 [place] 38 live - full term 9#6oz Male s angela [facility] Prudence Garcia Ailyn Kimball 08/31/24 6 spontaneous Delivery Date: 05/21/22 Last Updated by: Tiesha Dominguez primary section for macrosomia HPI 17 WK OB *twins Details: SKYE BRISCOE is a 30 year old who presents for routine OB visit. OB Visit ALLA Calculator Estimated Delivery Date Method Current WG Current Estimate 10/06/25 Ultrasound #2 17w 0d Other Estimates 10/01/25 Ultrasound #1 17w 5d # 2 Expected Delivery Route/Plan RLTCS Specific Issue/Plans Covid status: [] Flu vaccine: [] Tdap vaccine: [] Rhogam: [] LARC form signed: [] Problem list reviewed and updated with the most current plan of care details and appropriate orders placed. Relevant counseling for the gestational age provided. Continue routine care and follow up unless otherwise noted in visit notes/problem list details Initial Weight: Not Recorded Date -?-?-?-?-?-?-?-?-?-?-?-?- EGA Weight BP Urine Prot -?-?-?-?-?-?-?-?-?-?-?-?- Glucose FHR FuHt Pres Dilation -?-?-?-?-?-?-?-?-?-?-?-?- Effaced St Visit Note 02/26/25 -?-?-?-?-?-?-?-?-?-?-?-?- 8w 2d 221 lb 136/82 -?-?-?-?-?-?-?-?-?-?-?-?- A 175 -?-?-?-?-?-?-?-?-?-?-?-?- B 175 A -?-?-?-?-?-?-?-?-?-?-?-?- B -?-?-?--?-?-?-?-?-?-?-?-?- A -?-?-?-?-?-?-?-?-?-?-?-?- B A SM- CRl cons wit h each other -?-?-?-?-?-?-?-?-?-?-?-?- B 04/01/25 -?-?-?-?-?-?-?-?-?-?-?-?- 13w 1d 223 lb 138/87 Negative -?-?-?-?-?-?-?-?-?-?-?-?- Negative A 166 -?-?-?-?-?-?-?-?-?-?-?-?- B 154 A -?-?-?-?-?-?-?-?-?-?-?-?- B -?-?-?-?-?-?-?-?-?-?-?-?- A -?-?-?-?-?-?-?-?-?-?-?-?- B A JV- NIPT low ris k boys but patient is unaware until after gender reveal. has c/o mass by rectum. on exam it is tender and firm and palpates like a cameron-rectal abscess. ordering augmentin and consulting general surgery for advice on draining. needs mfm scans monthly starting 16 weeks. -?-?-?-?-?-?-?-?-?-?-?-?- B 04/26/25 -?-?-?-?-?-?-?-?-?-?-?-?- 16w 5d 231 lb 145/83 -?-?-?-?-?-?-?-?-?-?-?-?- A 150 -?-?-?-?-?-?-?-?-?-?-?-?- B 145 A -?-?-?-?-?-?-?-?-?-?-?-?- B -?-?-?-?-?-?-?-?-?-?-?-?- A -?-?-?-?-?-?-?-?-?-?-?-?- B A SM- had episode of spotting seen for this cervix close don US viable twin iup seen no obvious cause of bleedig -?-?-?-?-?-?-?-?-?-?-?-?- B 04/28/25 -?-?-?-?-?-?-?-?-?-?-?-?- 17w 0d 231 lb 5 oz 131/79 Nega tive -?-?-?--?-?-?-?-?-?-?-?-?- Negative A 149 -?-?-?-?-?-?-?-?-?-?-?-?- B 166 A -?-?-?-?-?-?-?-?-?-?-?-?- B -?-?-?-?-?-?-?-?-?-?-?-?- A -?--?-?-?-?-?-?-?-?-?-?-?- B A SM_ no further v b no lof co perirectal pain will call to get in with surgeon tomorrow -?-?-?-?-?-?-?-?-?-?-?-?- B ACOG First Trimester First Trimester: Desire for , Alcohol, Tobacco Cessation, Illicit/Recreational Drug/Substance Use, Intimate Partner Violence, Barriers to care, Unstable Housing, Communication Barriers, Environmental/Work Hazards, Anticipated Course of Care, Toxoplasmosis Precations, Use of Any medications, Sexual activity, Exercise, Dental Care, Sauna/Hot tub use, Seat Belt use, Childbirth classes/Hospital facilities, Travel, Indications for Ultrasound and Screening for Aneuploidy; Discussed Second Trimester Second Trimester: Signs and Symptoms of Labor, Selecting a care provider, Reproductive Life Planning & Contreception, Care Planning, Depression/Anxiety and Intimate Partner Violence; Discussed Tobacco Cessation Third Trimester Third Trimester: Pain Management Plans, Labor support person(s), Immediate Larc, Movement Monitoring, Signs and Symptoms of Preeclampsia and Education ROS Const Denies fever(s) GI Reports as per HPI and Denies abdominal pain Reports as per HPI, Denies abnormal vaginal bleeding, Denies dysuria and Denies vaginal discharge Exam Const General: healthy appearing, comfortable and no acute distress GI Inspection: normal to inspection Palpation: soft and nontender Results POC Urinalysis 2 Dip (Clinic) Office Urine Glucose Negative Last Edit by Destinee Loving on 04/28/25 15:27 Office Urine Protein Negative Last Edit by Destinee Loving on 04/28/25 15:27 Coding Level of Care Code OB Routine Diagnoses Cameron-rectal abscess 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.1 History of miscarriage, currently O09.299 Supervision of high-risk O09.90 Obesity affecting O99.210 Hx of section Z98.891 History of hypothyroidism Z86.39 History of gestational diabetes mellitus (GDM) in prior , currently O09.299; Z86.32 Twin dichorionic diamniotic placenta O30.049 17 weeks gestation of Z3A.17 Weeks of gestation: 17 weeks Assessment and Plan Assessment and Plan (1) Cameron-rectal abscess: Status: Acute (2) History of miscarriage, currently : Status: Acute (3) Supervision of high-risk : Status: Acute Comment: PRR (GCC) , ALLA 10/06/25, PC [place], Jigar (4) Obesity affecting : Status: Acute Comment: HgbA1c (5) Hx of section: Status: Acute Comment: prev cs with JV (6) History of hypothyroidism: Status: Acute Comment: TSH, T4, TSH R AB negative (7) History of gestational diabetes mellitus (GDM) in prior , currently : Status: Acute (8) Twin dichorionic diamniotic placenta: Status: Acute Comment: per formal US. Growth scans monthly. (9) : Status: Acute Qualifiers: Weeks of gestation: 17 weeks Qualified Code(s): Z3A.17 - 17 weeks gestation of Comment: elects NIPT with Gender, decline carrier. NIPT low risk fraternal twins. Orders: Orders POC Urinalysis 2 Dip (Clinic) Today 04/28/25 1551 <Electronically signed by Ashley courtney MD> Date _ Ashley Mullen MD [facility] Signature: Date (if applicable) CC: ~ [facility] Work Phone: 1(676) 211-630010-20-2025 [facility] [address] [place] [address], [address] [place] [address] OFFICE VISIT Date of Service: 04/26/25 MR#: [id number] Acct: [id number] Name: SKYE BRISCOE Rep #: [id number] : 1995 Provider: Dr. Deep Mullen MD Age/Sex: 30/F [place] [facility] [place]: Signed Intake Vital Signs 04/02/25 14:59 04/26/25 14:36 Height 5 ft 5 in 5 ft 5 in Weight: 231 lb BMI 38.4 BP 145/83 H Intake Visit Reasons: 16w5d twins* spotting, cramping per SM Event Promoter Required: No Is patient in pain?: Yes (cramping) Allergies tetracycline Allergy (Mild, Verified 04/26/25 14:40) Hives Medications ?Medication ?Instructions ?Recorded ?Confirmed ?Type multivit-min no.71-iron fum 28 cap PO 02/18/25 5 History mg-folate no.1 1 mg-dha 300 mg capsule (PNV-[place]) amoxicillin 875 mg-potassium 1 tab PO BID #10 tabs 04/26/25 Rx clavulanate 125 mg tablet Last Menstrual Period: 08/25/21 Zika: Zika virus screening: Negative : No PFSH PFSH Medical History Seasonal allergies Ovarian cyst Active labor at term Infertility Thyroid disorder Superficial varicosities Macrosomia Obesity affecting Supervision of normal first Anxiety Surgical History Delivery by section Family History Father Diabetes CAD (coronary artery disease) Hypertension Grandfather Kidney disease Paternal Cancer Maternal- skin Parkinsons disease Paternal Mother Cancer skin Social History adopted: No household members: spouse and children housing: house number of children: 1 current occupational status: employed current occupation: [employer] current occupational exposures/hazards: No pets and animals: Yes (avoid litter box) pets and animals: cat(s) and dog(s) history of recent travel: No sexually active: Yes Smoking Status: Never smoker alcohol intake: current alcohol intake frequency: a few times a month details: not while substance use type: does not use well-balanced diet: daily or most days caffeine: Yes Type: carbonated beverages Number of servings: 1 eating out: 1-3 times/week during the past year weight has: decreased > 10 lbs what type of physical activity do you participate in: weight training frequency: 5-6 times per week duration: 15-30 minutes/day armando/amish: Zoroastrianism seatbelt use: always do you feel safe at home: Yes additional social history: Spouse-Melina Johnson History 3 Elective abortions Hx Para 1 Spontaneous abortions 1 Hx # Term Pregnancies Ectopic pregnancies Hx # Pregnancies Multiple births # of living children 1 Past Pregnancies Del. Date Name GA/Weeks Outcome Route Bth Weight Gen Labor Lgth Anesthesia Del Locatn Provider FOB 05/21/22 [place] 38 live - full term 9#6oz Male s angela [facility] Prudence Anthony 08/31/24 6 spontaneous Delivery Date: 05/21/22 Last Updated by: Tiesha Dominguez primary section for macrosomia HPI 16w5d twins* spotting, cramping per SM Details: SKYE BRISCOE is a 30 year old who presents for routine OB visit. OB Visit ALLA Calculator Estimated Delivery Date Method Current WG Current Estimate 10/06/25 Ultrasound #2 16w 6d Other Estimates 10/01/25 Ultrasound #1 17w 4d # 2 Expected Delivery Route/Plan RLTCS Specific Issue/Plans Covid status: [] Flu vaccine: [] Tdap vaccine: [] Rhogam: [] LARC form signed: [] Problem list reviewed and updated with the most current plan of care details and appropriate ordersplaced. Relevant counseling for the gestational age provided. Continue routine care and follow up unless otherwise noted in visit notes/problem list details Initial Weight: Not Recorded Date -?-?-?-?-?-?-?-?-?-?-?-?- EGA Weight BP Urine Prot -?-?-?-?-?-?-?-?-?-?-?-?- Glucose FHR FuHt Pres Dilation -?-?-?-?-?-?-?-?-?-?-?-?- Effaced St Visit Note 02/26/25 -?-?-?-?-?-?-?-?-?--?-?-?- 8w 2d 221 lb 136/82 -?-?-?-?-?-?-?-?-?-?-?-?- A 175 -?-?-?-?-?-?-?-?-?-?-?-?- B 175 A -?-?-?-?-?-?-?-?-?-?-?-?- B -?-?-?-?-?-?-?-?-?-?-?-?- A -?-?-?-?-?-?-?-?-?-?-?-?- B A SM- CRl cons wit h each other -?-?-?-?-?-?-?-?-?-?-?-?- B 04/01/25 -?-?-?-?-?-?-?-?-?-?-?-?- 13w 1d 223 lb 138/87 Negative -?-?-?-?-?-?-?-?-?-?-?-?- Negative A 166 -?-?-?-?-?-?-?-?-?-?-?-?- B 154 A -?-?-?-?-?-?-?-?-?-?-?-?- B -?-?-?-?-?-?-?-?-?-?-?-?- A -?-?-?-?-?-?-?-?-?-?-?-?- B A JV- NIPT low ris k boys but patient is unaware until after gender reveal. has c/o mass by rectum. on exam it is tender and firm and palpates like a cameron- rectal abscess. ordering augmentin and consulting general surgery for advice on draining. needs mfm scans monthly starting 16 weeks. -?-?-?-?-?--?-?-?-?-?-?-?- B 04/26/25 -?-?-?-?-?-?-?-?-?-?-?-?- 16w 5d 231 lb 145/83 -?-?-?-?-?-?-?-?-?-?-?-?- A 150 -?-?-?-?-?-?-?-?-?-?-?-?- B 145 A -?-?-?-?-?-?-?-?-?-?-?-?- B -?-?-?-?-?-?-?-?-?-?-?-?- A -?-?-?-?-?-?-?-?-?-?-?-?- B A SM- had episode of spotting seen for this cervix close don US viable twin iup seen no obvious cause of bleedig -?-?-?-?-?-?-?-?-?-?-?-?- B ACOG First Trimester First Trimester: Desire for , Alcohol, Tobacco Cessation, Illicit/Recreational Drug/Substance Use, Intimate Partner Violence, Barriers to care, Unstable Housing, Communication Barriers, Environmental/Work Hazards, Anticipated Course of Care, Toxoplasmosis Precations, Use of Any med ications, Sexual activity, Exercise, Dental Care, Sauna/Hot tub use, Seat Belt use, Childbirth classes/Hospital facilities, Travel, Indications for Ultrasound and Screening for Aneuploidy; Discussed Second Trimester Second Trimester: Signs and Symptoms of Labor, Selecting a care provider, Reproductive Life Planning & Contreception, Care Planning, Depression/Anxiety and Intimate Partner Violence; Discussed Tobacco Cessation Third Trimester Third Trimester: Pain Management Plans, Labor support person(s), Immediate Larc, Movement Monitoring, Signs and Symptoms of Preeclampsia and [employer] Coding Level of Care Code OB Routine Diagnoses Cameron-rectal abscess K61.1 History of miscarriage, currently O09.299 Supervision of high-risk O09.90 Obesity affecting O99.210 Hx of section Z98.891 History of hypothyroidism Z86.39 History of gestational diabetes mellitus (GDM) in prior , currently O09.299; Z86.32 Twin dichorionic diamniotic placenta O30.049 16 weeks gestation of Z3A.16 Weeks of gestation: 16 weeks Assessment and Plan Assessment and Plan (1) Cameron-rectal abscess: Status: Acute (2) History of miscarriage, currently : Status: Acute (3) Supervision of high-risk : Status: Acute Comment: , ALLA 10/06/25, CLINT Mccormack, Jigar (4) Obesity affecting : Status: Acute Comment: HgbA1c (5) Hx of section: Status: Acute (6) History of hypothyroidism: Status: Acute Comment: TSH, T4, TSH R AB negative (7) History of gestational diabetes mellitus (GDM) in prior , currently : Status: Acute (8) Twin dichorionic diamniotic placenta: Status: Acute Comment: per formal US. Growth scans monthly. (9) : Status: Acute Qualifiers: Weeks of gestation: 16 weeks Qualified Code(s): Z3A.16 - 16 weeks gestation of Comment: elects NIPT with Gender, decline carrier. NIPT low risk fraternal twins. 10/21/25 1553 sherwin SHEPHERD> Date _ Ashley Mullen MD Cosigner Signature: Date (if applicable) CC: ~ [facility]10-20-2025 Progress note Author Ashley Mullen [facility] Note Date/Time April 26, 2025 5 :01pm [facility] [address] [place] [address], [address] [place] [address] OFFICE VISIT Date of Service: 04/26/25 MR#: [id number] Acct: [id number] Name: SKYE BRISCOE Rep #: [id number] : 1995 Provider: Dr. Deep Mullen MD Age/Sex: 30/F Location[place] [facility] [place] Status: Signed Intake Vital Signs 04/02/25 14:59 04/26/25 14:36 Height 5 ft 5 in 5 ft 5 in Weight: 231 lb BMI 38.4 BP 145/83 H Intake Visit Reasons: 16w5d twins* spotting, cramping per SM Event Promoter Required: No Is patient in pain?: Yes (cramping) Allergies tetracycline Allergy (Mild, Verified 04/26/25 14:40) Hives Medications ?Medication ?Instructions ?Recorded ?Confirmed ?Type multivit-min no.71-iron fum 28 cap PO 02/18/25 5 History mg-folate no.1 1 mg-dha 300 mg capsule (PNV-[place]) amoxicillin 875 mg-potassium 1 tab PO BID #10 tabs 04/26/25 Rx clavulanate 125 mg tablet Last Menstrual Period: 08/25/21 Zika: Zika virus screening: Negative : No PFSH PFSH Medical History Seasonal allergies Ovarian cyst Active labor at term Infertility Thyroid disorder Superficial varicosities Macrosomia Obesity affecting Supervision of normal first Anxiety Surgical History Delivery by section Family History Father Diabetes CAD (coronary artery disease) Hypertension Grandfather Kidney disease Paternal Cancer Maternal- skin Parkinsons disease Paternal Mother Cancer skin Social History adopted: No household members: spouse and children housing: house number of children: 1 current occupational status: employed current occupation: [employer] current occupational exposures/hazards: No pets and animals: Yes (avoid litter box) pets and animals: cat(s) and dog(s) history of recent travel: No sexually active: Yes Smoking Status: Never smoker alcohol intake: current alcohol intake frequency: a few times a month details: not while substance use type: does not use well-balanced diet: daily or most days caffeine: Yes Type: carbonated beverages Number of servings: 1 eating out: 1-3 times/week during the past year weight has: decreased > 10 lbs what type of physical activity do you participate in: weight training frequency: 5-6 times per week duration: 15-30 minutes/day armando/amish: Zoroastrianism seatbelt use: always do you feel safe at home: Yes additional social history: Spouse-Melina Johnson History 3 Elective abortions Hx Para 1 Spontaneous abortions 1 Hx # Term Pregnancies Ectopic pregnancies Hx # Pregnancies Multiple births # of living children 1 Past Pregnancies Del. Date Name GA/Weeks Outcome Route Bth [facility] [place] 38 live - full term 9#6oz Male s angela [facility] Prudence Law Jigar 08/31/24 6 spontaneous Delivery Date: 05/21/22 Last Updated by: Tiesha Dominguez primary section for macrosomia HPI 16w5d twins* spotting, cramping per SM Details: SKYE BRISCOE is a 30 year old who presents for routine OB visit. OB Visit ALLA Calculator Estimated Delivery Date Method Current WG Current Estimate 10/06/25 Ultrasound #2 16w 6d Other Estimates 10/01/25 Ultrasound #1 17w 4d # 2 Expected Delivery Route/Plan RLTCS Specific Issue/Plans Covid status: [] Flu vaccine: [] Tdap vaccine: [] Rhogam: [] LARC form signed: [] Problem list reviewed and updated with the most current plan of care details and appropriate orders placed. Relevant counseling for the gestational age provided. Continue routine care and follow up unless otherwise noted in visit notes/problem list details Initial Weight: Not Recorded Date -?-?-?-?-?-?-?-?-?-?-?-?- EGA Weight BP Urine Prot -?-?-?-?-?-?-?-?-?-?-?-?- Glucose FHR FuHt Pres Dilation -?-?-?-?-?-?-?-?-?-?-?-?- Effaced St Visit Note 02/26/25 -?-?-?-?-?-?-?-?-?--?-?-?- 8w 2d 221 lb 136/82 -?-?-?-?-?-?-?-?-?-?-?-?- A 175 -?-?-?-?-?-?-?-?-?-?-?-?- B 175 A -?-?-?-?-?-?-?-?-?-?-?-?- B -?-?-?-?-?-?-?-?-?-?-?-?- A -?-?-?-?-?-?-?-?-?-?-?-?- B A SM- CRl cons wit h each other -?-?-?-?-?-?-?-?-?-?-?-?- B 04/01/25 -?-?-?-?-?-?-?-?-?-?-?-?- 13w 1d 223 lb 138/87 Negative -?-?-?-?-?-?-?-?-?-?-?-?- Negative A 166 -?-?-?-?-?-?-?-?-?-?-?-?- B 154 A -?-?-?-?-?-?-?-?-?-?-?-?- B -?-?-?-?-?-?-?-?-?-?-?-?- A -?-?-?-?-?-?-?-?-?-?-?-?- B A JV- NIPT low ris k boys but patient is unaware until after gender reveal. has c/o mass by rectum. on exam it is tender and firm and palpates like a cameron- rectal abscess. ordering augmentin and consulting general surgery for advice on draining. needs mfm scans monthly starting 16 weeks. -?-?-?-?-?--?-?-?-?-?-?-?- B 04/26/25 -?-?-?-?-?-?-?-?-?-?-?-?- 16w 5d 231 lb 145/83 -?-?-?-?-?-?-?-?-?-?-?-?- A 150 -?-?-?-?-?-?-?-?-?-?-?-?- B 145 A -?-?-?-?-?-?-?-?-?-?-?-?- B -?-?-?-?-?-?-?-?-?-?-?-?- A -?-?-?-?-?-?-?-?-?-?-?-?- B A SM- had episode of spotting seen for this cervix close don US viable twin iup seen no obvious cause of bleedig -?-?-?-?-?-?-?-?-?-?-?-?- B ACOG First Trimester First Trimester: Desire for , Alcohol, Tobacco Cessation, Illicit/Recreational Drug/Substance Use, Intimate Partner Violence, Barriers to care, Unstable Housing, Communication Barriers, Environmental/Work Hazards, Anticipated Course of Care, Toxoplasmosis Precations, Use of Any medications, Sexual activity, Exercise, Dental Care, Sauna/Hot tub use, Seat Belt use, Childbirth classes/Hospital facilities, Travel, Indications for Ultrasound and Screening for Aneuploidy; Discussed Second Trimester Second Trimester: Signs and Symptoms of Labor, Selecting a care provider, Reproductive Life Planning & Contreception, Care Planning, Depression/Anxiety and Intimate Partner Violence; Discussed Tobacco Cessation Third Trimester Third Trimester: Pain Management Plans, Labor support person(s), Immediate Larc, Movement Monitoring, Signs and Symptoms of Preeclampsia and Education Coding Level of Care Code OB Routine Diagnoses Cameron-rectal abscess K61.1 History of miscarriage, currently O09.299 Supervision of high-risk O09.90 Obesity affecting O99.210 Hx of section Z98.891 History of hypothyroidism Z86.39 History of gestational diabetes mellitus (GDM) in prior , currently O09.299; Z86.32 Twin dichorionic diamniotic placenta O30.049 16 weeks gestation of Z3A.16 Weeks of gestation: 16 weeks Assessment and Plan Assessment and Plan (1) Cameron-rectal abscess: Status: Acute (2) History of miscarriage, currently : Status: Acute (3) Supervision of high-risk : Status: Acute Comment: , ALLA 10/06/25, CLINT Mccormack, Jigar (4) Obesity affecting : Status: Acute Comment: HgbA1c (5) Hx of section: Status: Acute (6) History of hypothyroidism: Status: Acute Comment: TSH, T4, TSH R AB negative (7) History of gestational diabetes mellitus (GDM) in prior , currently : Status: Acute (8) Twin dichorionic diamniotic placenta: Status: Acute Comment: per formal US. Growth scans monthly. (9) : Status: Acute Qualifiers: Weeks of gestation: 16 weeks Qualified Code(s): Z3A.16 - 16 weeks gestation of Comment: elects NIPT with Gender, decline carrier. NIPT low risk fraternal twins. 04/27/25 1553 <Electronically signed by Ashley courtney MD> Date _ Ashley Mullen MD Cosigner Signature: Date (if applicable) CC: ~ [facility] Work Phone: 1(159) 814-206809-26-2025 [facility] [address] [place] [address] OFFICE VISIT Date of Service: 04/02/25 MR#: [id number] Acct: [id number] Name: SKYE BRISCOE Rep #: [id number] : 1995 Provider: Dr. Samir Antunez MD Age/Sex: 30/F Location: [facility] Status: Signed Intake Vital Signs 04/01/25 15:21 04/02/25 14:59 Height 5 ft 5 in 5 ft 5 in Weight: 223 lb 225 lb BMI 37.0 37.4 BP 138/87 H 149/88 H Blood Pressure Location Rt brachial Position Sitting Respiration 17 Pulse 77 Pulse Source Monitor Pulse Oximetry (%) 100 Oxygen Delivery Method room air Intake Visit Reasons: RECTAL ABSCESS Chief Complaint: perirectal abscess Is patient in pain?: Yes (abscess area sore) Allergies tetracycline Allergy (Mild, Verified 04/02/25 15:00) Hives Medications ?Medication ?Instructions ?Recorded ?Confirmed ?Type multivit-min no.71-iron fum 28 cap PO 02/18/25 5 History mg-folate no.1 1 mg-dha 300 mg capsule (PNV-[place]) amoxicillin 875 mg-potassium 1 tab PO BID #10 tabs 04/02/25 Rx clavulanate 125 mg tablet nystatin 100,000 unit/gram topical 1 applic topical BI D 14 days #30 04/01/25 04/02/25 Rx cream grams PFSH Medical History Seasonal allergies Ovarian cyst Active labor at term Infertility Thyroid disorder Superficial varicosities Macrosomia Obesity affecting Supervision of normal first Anxiety Surgical History Delivery by section Family History Father Diabetes CAD (coronary artery disease) Hypertension Grandfather Kidney disease Paternal Cancer Maternal- skin Parkinsons disease Paternal Mother Cancer skin Social History adopted: No household members: spouse and children housing: house number of children: 1 current occupational status: employed current occupation: [employer] current occupational exposures/hazards: No pets and animals: Yes (avoid litter box) pets and animals: cat(s) and dog(s) history of recent travel: No sexually active: Yes Smoking Status: Never smoker alcohol intake: current alcohol intake frequency: a few times a month details: not while substance use type: does not use well-balanced diet: daily or most days caffeine: Yes Type: carbonated beverages Number of servings: 1 eating out: 1-3 times/week during the past year weight has: decreased > 10 lbs what type of physical activity do you participate in: weight training frequency: 5-6 times per week duration: 15-30 minutes/day armando/amish: Zoroastrianism seatbelt use: always do you feel safe at home: Yes additional social history: Spouse-Melina Johnson Female Reproductive History Menstrual Ab spontaneous: 1 HPI HPI HPI: The patient is a 30-year-old female who is being seen today for presumably a perirectal abscess. She is currently with twins. She had an OB appointment and complained of perianal pain. She was placed on antibiotics and was referred to general surgery to have this evaluated. She states thatthis has been present for about 1 week. She denies drainage. No fevers or chills. ROS General General: Yes weight change and fatigue; No appetite, colon cancer, breast cancer or weakness HEENT HEENT: No difficulty swallowing, eye injury, eye surgery, swollen glands or hoarseness Endo Endocrine: No thyroid disease, diabetes mellitus, thyroid cancer, Hair loss, heat intolerance or cold intolerance Skin Skin: No rash or changing moles Musc Musculoskeletal: Yes back problems and arthritis; No rheumatoid arthritis, gout or joint pain Cardio Cardiovascular: No murmur, pacemaker, heart disease, atrial fibrillation, high blood pressure, heart attack, heart stent, palpitations, shortness of breath with exertion or chest pain Psych Psychiatric: No depression, anxiety or hearing voices Resp Respiratory: No shortness of breath, No sleep apnea, No cough, No COPD, No asthma, No emphysema andNo wheezing Gastro Gastrointestinal: No abdominal pain, Yes nausea or vomiting, No diarrhea, No constipation, No bloodin stool, No acid reflux, No hemorrhoids, No ulcers, No gallbladder problem and No black,tarry stools Jonas Hematologic: No blood thinners, No blood disorders, No bleeding, No anemia and No blood clots Neuro Neurologic: No system reviewed and no additional complaints, except as documented, No as per HPI, No abnormal gait, No abnormal hearing, No abnormal movements, No abnormal speech, No behavioral changes, No burning sensations, No confusion, No convulsions, No disequilibrium, No dizziness, No localized weakness, No frequent falls, No headache(s), No lack of coordination, No loss ofvision, No memoryloss, Yes numbness, No other visual disturbances, No radicularpain, No restless legs, No sensory deficit, No syncope, Yes tingling, No tremor(s), No weakness and No other ROS Narrative 13 weeks Exam Const General: cooperative, healthy appearing and comfortable [facility] Head: normal to inspection Eyes General: appearance normal, both eyes and all related structures Neck Neck: normal visual inspection GI Other: Perianal examination reveals an area of induration on the patient's right side at about the 1 o'clock position. This seems consistent with a small Eleno rectal abscess. I recommended I&D. This was performed at the bedside. She tolerated this well. See procedure note Office Procedures I&D Provider Documentation Provider Documentation: After obtaining informed consent, the patient was placed in lateral decubitus position on her left side. The area was then prepped and draped in the usual sterile manner. Local anesthetic was infiltrated into the vicinity. #11 blade was then used to make a small skin incision. There was a small amount of pus tinged fluid able to be expressed. She tolerated this fairly well. The wound was then packed with quarter inch plain packing. A gauze dressing was applied. Alert Terminal Gauger Alert Billing: Yes Incision and Drainage 22981 Abscess Simp/Single Subungual Hematoma Subungual Hematoma: No Procedure Time Out Time Out Informed consent given: Yes Consent signed: Yes Time out checklist: patient, procedure, site marked/identified, positioning of patient, supplies available, allergies confirmed and team agrees on procedure Time out staff in room: Yes Time out verified: Yes Time out date: 04/02/25 Time out time: 14:45 Assessment and Plan Assessment and Plan (1) Cameron-rectal abscess: Status: Acute Plan: The patient is a 30-year-old female with a perirectal abscess. This was successfully drained in theoffice today. I recommended removing the packing within 24 hours. She should finish her course of antibiotics which was prescribed. Follow-up will be as needed. Orders: Orders Incision and Drainage Today K61.1 - Rectal abscess Coding Level of Care Code Off vis,new,level 2 Diagnoses Cameron-rectal abscess K61.1 CPT Codes Incision and Drainage - I&D: 79943 Abscess Simp/Single (84034) Subungual Hematoma (82959) 04/02/25 1512 k MD> Date _ Damian Antunez MD Cosigner Signature: Date (if applicable) CC: ~ [facility]09-[facility] Progress note Author Damian Antunez [facility] Note Date/Time April 02, 2025 3:00pm [facility] [address] [place] [address]. [address] [place] [address] OFFICE VISIT Date of Service: 04/02/25 MR#: [id number] Acct: [id number] Name: SKYE BRSICOE Rep #: [id number] : 1995 Provider: Dr. Samir Antunez MD Age/Sex: 30/F Location: [facility] Status: Signed Intake Vital Signs 04/01/25 15:21 04/02/25 14:59 Height 5 ft 5 in 5 ft 5 in Weight: 223 lb 225 lb BMI 37.0 37.4 BP 138/87 H 149/88 H Blood Pressure Location Rt brachial Position Sitting Respiration 17 Pulse 77 Pulse Source Monitor Pulse Oximetry (%) 100 Oxygen Delivery Method room air Intake Visit Reasons: RECTAL ABSCESS Chief Complaint: perirectal abscess Is patient in pain?: Yes (abscess area sore) Allergies tetracycline Allergy (Mild, Verified 04/02/25 15:00) Hives Medications ?Medication ?Instructions ?Recorded ?Confirmed ?Type multivit-min no.71-iron fum 28 cap PO 02/18/25 5 History mg-folate no.1 1 mg-dha 300 mg capsule (PNV-[place]) amoxicillin 875 mg-potassium 1 tab PO BID #10 tabs 04/02/25 Rx clavulanate 125 mg tablet nystatin 100,000 unit/gram topical 1 applic topical BI D 14 days #30 04/01/25 04/02/25 Rx cream grams PFSH Medical History Seasonal allergies Ovarian cyst Active labor at term Infertility Thyroid disorder Superficial varicosities Macrosomia Obesity affecting Supervision of normal first Anxiety Surgical History Delivery by section Family History Father Diabetes CAD (coronary artery disease) Hypertension Grandfather Kidney disease Paternal Cancer Maternal- skin Parkinsons disease Paternal Mother Cancer skin Social History adopted: No household members: spouse and children housing: house number of children: 1 current occupational status: employed current occupation: [employer] current occupational exposures/hazards: No pets and animals: Yes (avoid litter box) pets and animals: cat(s) and dog(s) history of recent travel: No sexually active: Yes Smoking Status: Never smoker alcohol intake: current alcohol intake frequency: a few times a month details: not while substance use type: does not use well-balanced diet: daily or most days caffeine: Yes Type: carbonated beverages Number of servings: 1 eating out: 1-3 times/week during the past year weight has: decreased > 10 lbs what type of physical activity do you participate in: weight training frequency: 5-6 times per week duration: 15-30 minutes/day armando/amish: Zoroastrianism seatbelt use: always do you feel safe at home: Yes additional social history: Spouse-Melina Kevinreza Female Reproductive History Menstrual Ab spontaneous: 1 HPI HPI HPI: The patient is a 30-year-old female who is being seen today for presumably a perirectal abscess. She is currently with twins. She had an OB appointment and complained of perianal pain. She was placed on antibiotics and was referred to general surgery to have this evaluated. She states that this has been present for about 1 week. She denies drainage. No fevers or chills. ROS General General: Yes weight change and fatigue; No appetite, colon cancer, breast cancer or weakness HEENT HEENT: No difficulty swallowing, eye injury, eye surgery, swollen glands or hoarseness Endo Endocrine: No thyroid disease, diabetes mellitus, thyroid cancer, Hair loss, heat intolerance or cold intolerance Skin Skin: No rash or changing moles Musc Musculoskeletal: Yes back problems and arthritis; No rheumatoid arthritis, gout or joint pain Cardio Cardiovascular: No murmur, pacemaker, heart disease, atrial fibrillation, high blood pressure, heart attack, heart stent, palpitations, shortness of breath with exertion or chest pain Psych Psychiatric: No depression, anxiety or hearing voices Resp Respiratory: No shortness of breath, No sleep apnea, No cough, No COPD, No asthma, No emphysema and No wheezing Gastro Gastrointestinal: No abdominal pain, Yes nausea or vomiting, No diarrhea, No constipation, No blood in stool, No acid reflux, No hemorrhoids, No ulcers, No gallbladder problem and No black,tarry stools Jonas Hematologic: No blood thinners, No blood disorders, No bleeding, No anemia and No blood clots Neuro Neurologic: No system reviewed and no additional complaints, except as documented, No as per HPI, No abnormal gait, No abnormal hearing, No abnormal movements, No abnormal speech, No behavioral changes, No burning sensations, No confusion, No convulsions, No disequilibrium, No dizziness, No localized weakness, No frequent falls, No headache(s), No lack of coordination, No loss ofvision, No memory loss, Yes numbness, No other visual disturbances, No radicularpain, No restless legs, No sensory deficit, No syncope, Yes tingling, No tremor(s), No weakness and No other ROS Narrative 13 weeks Exam Const General: cooperative, healthy appearing and comfortable [facility] Head: normal to inspection Eyes General: appearance normal, both eyes and all related structures Neck Neck: normal visual inspection GI Other: Perianal examination reveals an area of induration on the patient's right side at about the 1 o'clock position. This seems consistent with a small Eleno rectal abscess. I recommended I&D. This was performed at the bedside. She tolerated this well. See procedure note Office Procedures I&D Provider Documentation Provider Documentation: After obtaining informed consent, the patient was placed in lateral decubitus position on her left side. The area was then prepped and draped in the usual sterile manner. Local anesthetic was infiltrated into the vicinity. #11 blade was then used to make a small skin incision. There was a small amount of pus tinged fluid able to be expressed. She tolerated this fairly well. The wound was then packed with quarter inch plain packing. A gauze dressing was applied. Alert Terminal Gauger Alert Billing: Yes Incision and Drainage 40158 Abscess Simp/Single Subungual Hematoma Subungual Hematoma: No Procedure Time Out Time Out Informed consent given: Yes Consent signed: Yes Time out checklist: patient, procedure, site marked/identified, positioning of patient, supplies available, allergies confirmed and team agrees on procedure Time out staff in room: Yes Time out verified: Yes Time out date: 04/02/25 Time out time: 14:45 Assessment and Plan Assessment and Plan (1) Cameron-rectal abscess: Status: Acute Plan: The patient is a 30-year-old female with a perirectal abscess. This was successfully drained in the office today. I recommended removing the packing within 24 hours. She should finish her course of antibiotics which was prescribed. Follow-up will be as needed. Orders: Orders Incision and Drainage Today K61.1 - Rectal abscess Coding Level of Care Code Off vis,new,level 2 Diagnoses Cameron-rectal abscess K61.1 CPT Codes Incision and Drainage - I&D: 49725 Abscess Simp/Single (86534) Subungual Hematoma (84467) 04/02/25 1512 <Electronically signed by Damian jang MD> Date _ Damian Antunez MD Cosigner Signature: Date (if applicable) CC: ~ [facility] Work Phone: [phone]) 739-738309-25-2025 [facility] [address] [place] [address], [address] [place] [address] OFFICE VISIT Date of Service: 04/01/25 MR#: [id number] Acct: [id number] Name: SKYE BRISCOE Rep #: [id number] : 1995 Provider: Dr. Monica Law DO Age/Sex: 30/F [place] [facility] [place]: Signed Intake Vital Signs 02/16/25 16:00 02/26/25 13:08 04/01/25 15:21 Height 5 ft 5 in 5 ft 5 in 5 ft 5 in Weight: 223 lb BMI 37.0 BP 138/87 H Intake Visit Reasons: 12wk OB Chief Complaint: 12wk OB Event Promoter Required: No Is patient in pain?: No Allergies tetracycline Allergy (Mild, Verified 04/01/25 15:19) Hives Medications ?Medication ?Instructions ?Recorded ?Confirmed ?Type multivit-min no.71-iron fum 28 cap PO 02/18/25 5 History mg-folate no.1 1 mg-dha 300 mg capsule (PNV-[place]) amoxicillin 875 mg-potassium 1 tab PO BID #10 tabs 04/01/25 Rx clavulanate 125 mg tablet nystatin 100,000 unit/gram topical 1 applic topical BI D 14 days #30 04/01/25 04/01/25 Rx cream grams Last Menstrual Period: 08/25/21 : No PFSH PFSH Medical History Seasonal allergies Ovarian cyst Active labor at term Infertility Thyroid disorder Superficial varicosities Macrosomia Obesity affecting Supervision of normal first Anxiety Surgical History Delivery by section Family History Father Diabetes CAD (coronary artery disease) Hypertension Grandfather Kidney disease Paternal Cancer Maternal- skin Parkinsons disease Paternal Mother Cancer skin Social History adopted: No household members: spouse and children housing: house number of children: 1 current occupational status: employed current occupation: [employer] current occupational exposures/hazards: No pets and animals: Yes (avoid litter box) pets and animals: cat(s) and dog(s) history of recent travel: No sexually active: Yes Smoking Status: Never smoker alcohol intake: current alcohol intake frequency: a few times a month details: not while substance use type: does not use well-balanced diet: daily or most days caffeine: Yes Type: carbonated beverages Number of servings: 1 eating out: 1-3 times/week during the past year weight has: decreased > 10 lbs what type of physical activity do you participate in: weight training frequency: 5-6 times per week duration: 15-30 minutes/day armando/amish: Zoroastrianism seatbelt use: always do you feel safe at home: Yes additional social history: Spouse-Melina Johnson History 3 Elective abortions Hx Para 1 Spontaneous abortions 1 Hx # Term Pregnancies Ectopic pregnancies Hx # Pregnancies Multiple births # of living children 1 Past Pregnancies Del. Date Name GA/Weeks Outcome Route Bth Weight Infant Gen Labor Lgth Anesthesia Del Locatn Provider FOB 05/21/22 [place] 38 live - full term 9#6oz Male s angela [facility] Prudence Cadenhrys Ailyn Avilesy 08/31/24 6 spontaneous Delivery Date: 05/21/22 Last Updated by: Tiesha Dominguez primary section for macrosomia HPI 12wk OB Details: SKYE BRISCOE is a 30 year old who presents for routine OB visit. OB Visit ALLA Calculator Estimated Delivery Date Method Current WG Current Estimate 10/06/25 Ultrasound #2 13w 1d Other Estimates 10/01/25 Ultrasound #1 13w 6d # 2 Expected Delivery Route/Plan RLTCS Specific Issue/Plans Covid status: [] Flu vaccine: [] Tdap vaccine: [] Rhogam: [] LARC form signed: [] Problem list reviewed and updated with the most current plan of care details and appropriate ordersplaced. Relevant counseling for the gestational age provided. Continue routine care and follow up unless otherwise noted in visit notes/problem list details Initial Weight: Not Recorded Date -?-?-?-?-?-?-?-?-?-?-?-?- EGA Weight BP Urine Prot -?-?-?-?-?-?-?-?-?-?-?-?- Glucose FHR FuHt Pres Dilation -?-?-?-?-?-?-?-?-?-?-?-?- Effaced St Visit Note 02/26/25 -?-?-?-?-?-?-?-?-?-?-?-?- 8w 2d 221 lb 136/82 -?-?-?-?-?-?-?-?-?-?-?-?- A 175 -?-?-?-?-?-?-?-?-?-?-?-?- B 175 A -?-?-?-?-?-?-?-?-?-?-?-?- B -?-?-?-?-?-?-?-?-?-?-?-?- A -?-?-?-?-?-?-?-?-?-?-?-?- B A SM- CRl cons wit h each other -?-?-?-?-?-?-?-?-?-?-?-?- B 04/01/25 -?-?-?-?-?-?-?-?-?-?-?-?- 13w 1d 223 lb 138/87 Negative -?-?-?-?-?-?-?-?-?-?-?-?- Negative A 166 -?-?-?-?-?-?-?-?-?-?-?-?- B 154 A -?-?-?-?-?-?-?-?-?-?-?-?- B -?-?-?-?-?-?-?-?-?-?-?-?- A -?-?-?-?-?-?-?-?-?-?-?-?- B A JV- NIPT low ris k boys but patient is unaware until after gender reveal. has c/o mass by rectum. on exam it is tender and firm and palpates like a cameron- rectal abscess. ordering augmentin and consulting general surgery for advice on draining. needs mfm scans monthly starting 16 weeks. -?-?-?-?-?-?-?-?-?-?-?-?- B ACOG First Trimester First Trimester: Desire for , Alcohol, Tobacco Cessation, Illicit/Recreational Drug/Substance Use, Intimate Partner Violence, Barriers to care, Unstable Housing, Communication Barriers, Environmental/Work Hazards, Anticipated Course of Care, Toxoplasmosis Precations, Use of Any med ications, Sexual activity, Exercise, Dental Care, Sauna/Hot tub use, Seat Belt use, Childbirth classes/Hospital facilities, Travel, Indications for Ultrasound and Screening for Aneuploidy; Discussed Second Trimester Second Trimester: Signs and Symptoms of Labor, Selecting a care provider, Reproductive Life Planning & Contreception, Care Planning, Depression/Anxiety and Intimate Partner Violence; Discussed Tobacco Cessation Third Trimester Third Trimester: Pain Management Plans, Labor support person(s), Immediate Larc, Movement Monitoring, Signs and Symptoms of Preeclampsia and Lyons Education ROS Const Denies fever(s) GI Reports as per HPI and Denies abdominal pain Reports as per HPI, Denies abnormal vaginal bleeding, Denies dysuria and Denies vaginal discharge Exam Const General: healthy appearing, comfortable and no acute distress GI Inspection: normal to inspection Palpation: soft and nontender Results POC Urinalysis 2 Dip (Clinic) Office Urine Glucose Negative Last Edit by Trudy Molina on 04/01/25 15:31 Office Urine Protein Negative Last Edit by Trudy Molina on 04/01/25 15:31 Coding Level of Care Code OB Routine Diagnoses History of miscarriage, currently O09.299 Obesity affecting O99.210 Supervision of high-risk O09.90 Hx of section Z98.891 History of hypothyroidism Z86.39 History of gestational diabetes mellitus (GDM) in prior , currently O09.299; Z86.32 Twin dichorionic diamniotic placenta O30.049 13 weeks gestation of Z3A.13 Weeks of gestation: 13 weeks Assessment and Plan Assessment and Plan (1) History of miscarriage, currently : Status: Acute (2) Obesity affecting : Status: Acute Comment: HgbA1c (3) Supervision of high-risk : Status: Acute Comment: , ALLA 10/06/25, CLINT Mccormack, Jigar (4) Hx of section: Status: Acute (5) History of hypothyroidism: Status: Acute Comment: TSH, T4, TSH R AB negative (6) History of gestational diabetes mellitus (GDM) in prior , currently : Status: Acute (7) Twin dichorionic diamniotic placenta: Status: Acute Comment: per formal US. (8) : Status: Acute Qualifiers: Weeks of gestation: 13 weeks Qualified Code(s): Z3A.13 - 13 weeks gestation of Comment: elects NIPT with Gender, decline carrier. NIPT low risk fraternal twins. Orders: Orders POC Urinalysis 2 Dip (Clinic) Today Referrals General Surgery K61.1 - Rectal abscess Medications: New amoxicillin-pot clavulanate 875-125 mg 1 TAB PO BID 10 tabs 0RF nystatin 1 applic topical BID 30 grams 0RF 14 days 04/01/25 1605 e Ailyn DO> Date _ Prudence Law DO Cosign Signature: Date (if applicable) CC: ~ [facility] [id number] Progress note Author Prudence Robertson [facility] Note Date/Time April 01, 2025 3:58pm [facility] [address] [place] [address], [address] [place] [address] OFFICE VISIT Date of Service: 04/01/25 MR#: [id number] Acct: [id number] Name: SKYE BRISCOE Rep #: [id number] : 1995 Provider: Dr. Monica Law DO Age/Sex: 30/F [place] [facility] [place]: Signed Intake Vital Signs 02/16/25 16:00 02/26/25 13:08 04/01/25 15:21 Height 5 ft 5 in 5 ft 5 in 5 ft 5 in Weight: 223 lb BMI 37.0 BP 138/87 H Intake Visit Reasons: 12wk OB Chief Complaint: 12wk OB Event Promoter Required: No Is patient in pain?: No Allergies tetracycline Allergy (Mild, Verified 04/01/25 15:19) Hives Medications ?Medication ?Instructions ?Recorded ?Confirmed ?Type multivit-min no.71-iron fum 28 cap PO 02/18/25 5 History mg-folate no.1 1 mg-dha 300 mg capsule (PNV-[place]) amoxicillin 875 mg-potassium 1 tab PO BID #10 tabs 04/01/25 Rx clavulanate 125 mg tablet nystatin 100,000 unit/gram topical 1 applic topical BI D 14 days #30 04/01/25 04/01/25 Rx cream grams Last Menstrual Period: 08/25/21 : No PFSH PFSH Medical History Seasonal allergies Ovarian cyst Active labor at term Infertility Thyroid disorder Superficial varicosities Macrosomia Obesity affecting Supervision of normal first Anxiety Surgical History Delivery by section Family History Father Diabetes CAD (coronary artery disease) Hypertension Grandfather Kidney disease Paternal Cancer Maternal- skin Parkinsons disease Paternal Mother Cancer skin Social History adopted: No household members: spouse and children housing: house number of children: 1 current occupational status: employed current occupation: [employer] current occupational exposures/hazards: No pets and animals: Yes (avoid litter box) pets and animals: cat(s) and dog(s) history of recent travel: No sexually active: Yes Smoking Status: Never smoker alcohol intake: current alcohol intake frequency: a few times a month details: not while substance use type: does not use well-balanced diet: daily or most days caffeine: Yes Type: carbonated beverages Number of servings: 1 eating out: 1-3 times/week during the past year weight has: decreased > 10 lbs what type of physical activity do you participate in: weight training frequency: 5-6 times per week duration: 15-30 minutes/day armando/amish: Zoroastrianism seatbelt use: always do you feel safe at home: Yes additional social history: Spouse-Melina Johnson History 3 Elective abortions Hx Para 1 Spontaneous abortions 1 Hx # Term Pregnancies Ectopic pregnancies Hx # Pregnancies Multiple births # of living children 1 Past Pregnancies Del. Date Name GA/Weeks Outcome Route Bth Weight Gen Labor Lgth Anesthesia Del Locatn Provider FOB 05/21/22 [place] 38 live - full term 9#6oz Male s angela [facility] Prudence Anthony 08/31/24 6 spontaneous Delivery Date: 05/21/22 Last Updated by: Tiesha Dominguez primary section for macrosomia HPI 12wk OB Details: SKYE BRISCOE is a 30 year old who presents for routine OB visit. OB Visit ALLA Calculator Estimated Delivery Date Method Current WG Current Estimate 10/06/25 Ultrasound #2 13w 1d Other Estimates 10/01/25 Ultrasound #1 13w 6d # 2 Expected Delivery Route/Plan RLTCS Specific Issue/Plans Covid status: [] Flu vaccine: [] Tdap vaccine: [] Rhogam: [] LARC form signed: [] Problem list reviewed and updated with the most current plan of care details and appropriate orders placed. Relevant counseling for the gestational age provided. Continue routine care and follow up unless otherwise noted in visit notes/problem list details Initial Weight: Not Recorded Date -?-?-?-?-?-?-?-?-?-?-?-?- EGA Weight BP Urine Prot -?-?-?-?-?-?-?-?-?-?-?-?- Glucose FHR FuHt Pres Dilation -?-?-?-?-?-?-?-?-?-?-?-?- Effaced St Visit Note 02/26/25 -?-?-?-?-?-?-?-?-?-?-?-?- 8w 2d 221 lb 136/82 -?-?-?-?-?-?-?-?-?-?-?-?- A 175 -?-?-?-?-?-?-?-?-?-?-?-?- B 175 A -?-?-?-?-?-?-?-?-?-?-?-?- B -?-?-?-?-?-?-?-?-?-?-?-?- A -?-?-?-?-?-?-?-?-?-?-?-?- B A SM- CRl cons wit h each other -?-?-?-?-?-?-?-?-?-?-?-?- B 04/01/25 -?-?-?-?-?-?-?-?-?-?-?-?- 13w 1d 223 lb 138/87 Negative -?-?-?-?-?-?-?-?-?-?-?-?- Negative A 166 -?-?-?-?-?-?-?-?-?-?-?-?- B 154 A -?-?-?-?-?-?-?-?-?-?-?-?- B -?-?-?-?-?-?-?-?-?-?-?-?- A -?-?-?-?-?-?-?-?-?-?-?-?- B A JV- NIPT low ris k boys but patient is unaware until after gender reveal. has c/o mass by rectum. on exam it is tender and firm and palpates like a cameron- rectal abscess. ordering augmentin and consulting general surgery for advice on draining. needs mfm scans monthly starting 16 weeks. -?-?-?-?-?-?-?-?-?-?-?-?- B ACOG First Trimester First Trimester: Desire for , Alcohol, Tobacco Cessation, Illicit/Recreational Drug/Substance Use, Intimate Partner Violence, Barriers to care, Unstable Housing, Communication Barriers, Environmental/Work Hazards, Anticipated Course of Care, Toxoplasmosis Precations, Use of Any medications, Sexual activity, Exercise, Dental Care, Sauna/Hot tub use, Seat Belt use, Childbirth classes/Hospital facilities, Travel, Indications for Ultrasound and Screening for Aneuploidy; Discussed Second Trimester Second Trimester: Signs and Symptoms of Labor, Selecting a care provider, Reproductive Life Planning & Contreception, Care Planning, Depression/Anxiety and Intimate Partner Violence; Discussed Tobacco Cessation Third Trimester Third Trimester: Pain Management Plans, Labor support person(s), Immediate Larc, Movement Monitoring, Signs and Symptoms of Preeclampsia and Lyons Education ROS Const Denies fever(s) GI Reports as per HPI and Denies abdominal pain Reports as per HPI, Denies abnormal vaginal bleeding, Denies dysuria and Denies vaginal discharge Exam Const General: healthy appearing, comfortable and no acute distress GI Inspection: normal to inspection Palpation: soft and nontender Results POC Urinalysis 2 Dip (Clinic) Office Urine Glucose Negative Last Edit by Trudy Molina on 04/01/25 15:31 Office Urine Protein Negative Last Edit by Trudy Molina on 04/01/25 15:31 Coding Level of Care Code OB Routine Diagnoses History of miscarriage, currently O09.299 Obesity affecting O99.210 Supervision of high-risk O09.90 Hx of section Z98.891 History of hypothyroidism Z86.39 History of gestational diabetes mellitus (GDM) in prior , currently O09.299; Z86.32 Twin dichorionic diamniotic placenta O30.049 13 weeks gestation of Z3A.13 Weeks of gestation: 13 weeks Assessment and Plan Assessment and Plan (1) History of miscarriage, currently : Status: Acute (2) Obesity affecting : Status: Acute Comment: HgbA1c (3) Supervision of high-risk : Status: Acute Comment: , ALLA 10/06/25, CLINT Mccormack, Jigar (4) Hx of section: Status: Acute (5) History of hypothyroidism: Status: Acute Comment: TSH, T4, TSH R AB negative (6) History of gestational diabetes mellitus (GDM) in prior , currently : Status: Acute (7) Twin dichorionic diamniotic placenta: Status: Acute Comment: per formal US. (8) : Status: Acute Qualifiers: Weeks of gestation: 13 weeks Qualified Code(s): Z3A.13 - 13 weeks gestation of Comment: elects NIPT with Gender, decline carrier. NIPT low risk fraternal twins. Orders: Orders POC Urinalysis 2 Dip (Clinic) Today Referrals General Surgery K61.1 - Rectal abscess Medications: New amoxicillin-pot clavulanate 875-125 mg 1 TAB PO BID 10 tabs 0RF nystatin 1 applic topical BID 30 grams 0RF 14 days 04/01/25 1605 <Electronically signed by Prudence Haddad DO> Date _ Prudence Law [facility] Signature: Date (if applicable) CC: ~ [facility] Work Phone: 1(370) 941-773808-22-2025 [facility] [address] [place] [address], [address] [place] [id number] OFFICE VISIT Date of Service: 02/26/25 MR#: [id number] Acct: [id number] Name: SKYE BRISCOE Rep #: [id number] : 1995 Provider: Dr. Deep Mullen MD Age/Sex: 29/F [place] [facility] [place] Status: Signed Intake Vital Signs 02/02/25 14:38 02/16/25 16:00 02/26/25 13:08 02/26/25 13:34 Height 5 ft 5 in 5 ft 5 in 5 ft 5 in Weight: 221 lb BP 136/82 H Intake Visit Reasons: *EST* NOB ALLA 4/ *TWINS Event Promoter Required: No Is patient in pain?: No Allergies tetracycline Allergy (Mild, Verified 02/26/25 13:15) Hives Medications ?Medication ?Instructions ?Recorded ?Confirmed ?Type multivit-min no.71-iron fum 28 cap PO 02/18/25 Histor y mg-folate no.1 1 mg-dha 300 mg capsule (PNV-[place]) Last Menstrual Period: 08/25/21 Zika: Zika virus screening: Negative : No PFSH PFSH Medical History Seasonal allergies Ovarian cyst Active labor at term Infertility Thyroid disorder Superficial varicosities Macrosomia Obesity affecting Supervision of normal first Anxiety Surgical History Delivery by section Family History Father Diabetes CAD (coronary artery disease) Hypertension Grandfather Kidney disease Paternal Cancer Maternal- skin Parkinsons disease Paternal Mother Cancer skin Social History adopted: No household members: spouse and children housing: house number of children: 1 service: No current occupational status: employed current occupation: [employer] current occupational exposures/hazards: No pets and animals: Yes (avoid litter box) pets and animals: cat(s) and dog(s) history of recent travel: No sexually active: Yes Smoking Status: Never smoker alcohol intake: current alcohol intake frequency: a few times a month details: not while substance use type: does not use well-balanced diet: daily or most days caffeine: Yes Type: carbonated beverages Number of servings: 1 eating out: 1-3 times/week during the past year weight has: decreased > 10 lbs what type of physical activity do you participate in: weight training frequency: 5-6 times per week duration: 15-30 minutes/day armando/amish: Zoroastrianism seatbelt use: always do you feel safe at home: Yes additional social history: Spouse-Jigar- Alex History 3 Elective abortions Hx Para 1 Spontaneous abortions 1 Hx # Term Pregnancies Ectopic pregnancies Hx # Pregnancies Multiple births # of living children 1 Past Pregnancies Del. Date Name GA/Weeks Outcome Route Bth Weight Infant Gen Labor Lgth Anesthesia Del Locatn Provider FOB 05/21/22 [place] 38 live - full term 9#6oz Male s angela [facility] Prudence Garcia Ailyn Jigar 08/31/24 6 spontaneous Delivery Date: 05/21/22 Last Updated by: Tiesha Dominguez primary section for macrosomia HPI *EST* NOB ALLA 10/06 *TWINS Details: SKYE BRISCOE is a 29 year old who presents for New OB visit. OB Visit ALLA Calculator Estimated Delivery Date Method Current WG Current Estimate 10/06/25 Ultrasound #2 8w 2d Other Estimates 10/01/25 Ultrasound #1 9w 0d # 2 Comments: HIV: Urine Culture: Sequential Screen: NIPT Screen: Estimated Due Date: 10/06/25 Expected Delivery Route/Plan RLTCS Specific Issue/Plans Covid status: [] Flu vaccine: [] Tdap vaccine: [] Rhogam: [] LARC form signed: [] Problem list reviewed and updated with the most current plan of care details and appropriate ordersplaced. Relevant counseling for the gestational age provided. Continue routine care and follow up unless otherwise noted in visit notes/problem list details Initial Weight: Not Recorded Date -?-?-?-?-?-?-?-?-?-?-?-?- EGA Weight BP Urine Prot -?-?-?-?-?-?-?-?-?-?-?-?- Glucose FHR FuHt Pres Dilation -?-?-?-?-?-?-?-?-?-?-?-?- Effaced St Visit Note 02/26/25 -?-?-?-?-?-?-?-?-?-?-?-?- 8w 2d 221 lb 136/82 -?-?-?-?-?-?-?-?-?-?-?-?- A 175 -?-?-?-?-?-?-?-?-?-?-?-?- B 175 A -?-?-?-?-?-?-?-?-?-?-?-?- B -?-?-?-?-?-?-?-?-?-?-?-?- A -?-?-?-?-?-?-?-?-?-?-?-?- B A SM- CRl cons wit h each other -?-?-?-?-?-?-?-?-?-?-?-?- B Menstrual History Last Menstrual Period: 08/25/21 Reported LMP: approximate (month known) (December) Normal amount/duration: Yes Frequency in days: 28-30 On hormonal BC at conception: No hCG+: 01/17/25 Antepartum Record Genetic Screening: Congenital Heart Defect: Other, Neural Tube Defect: Other, Hemoglobinopathy Or Carrier: Other, Cystic Fibrosis: Other, Chromosome Abnormality: Other, Steve-Sachs: Other, Hemophilia: Other, Intellectual Disability/Autism: Other, Recurrent Loss/Stillbirth: Other, Other Structural Defect: Other, Other Genetic Disease: Other and Maternal Metabolic Disorder: Other Infection History: Live with someone with TB or Exposed to TB: No, Patient or Partner has history of Genital Herpes: No, Rash or Viral illness since last mentrual period: No, Prior GBS-Infected child: No, History of STD: No, HIV Infection: No, History of Hepatitis: No, Recent travel outside of [place]: No, Concern for hepatitis exposure: No, Varicella immune: Yes (immune -virus) and Covid Vaccinated: No Medical History Medical History: Positive: Diabetes (GDM @ 36 weeks), Thyroid dysfunction (inactive thyroid last ), Seasonal allergies, Drug/latex allergies/reactions (tetracycline), 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), Operations/hospitalizations (See PFSH), Infertility (1st 2.5yrs), Relevant family history (See PFSH) and Other (Obesity) and Negative: Hypertension, Heart disease, Auto-immune disorder, Kidney disease/UTI, Neurologic/epilepsy, Psychiatric, Depression/ depression, Hepatitis/liver disease, Varicosities/phlebitis, Trauma/domestic violence, History of blood transfusions, D (Rh) Sensitized, Pulmonary (e.g.,TB,Asthma), Breast, Anesthetic complications, History of abnormal pap, Uterine anomaly/adeola and Anti-retroviral treatment ACOG First Trimester First Trimester: Desire for , Alcohol, Tobacco Cessation, Illicit/Recreational Drug/Substance Use, Intimate Partner Violence, Barriers to care, Unstable Housing, Communication Barriers, Environmental/Work Hazards, Anticipated Course of Care, Nurtrition and weight gain, Toxoplasmosis Precations, Use of Any medications, Sexual activity, Exercise, Dental Care, Sauna/Hot tub use, Seat Belt use, Childbirth classes/Hospital facilities, Travel, Indications for Ultrasound and Screening for Aneuploidy; Discussed Second Trimester Second Trimester: Signs and Symptoms of Labor, Selecting a care provider, Reproductive Life Planning & Contreception, Care Planning, Depression/Anxiety and Intimate Partner Violence; Discussed Tobacco Cessation Third Trimester Third Trimester: Pain Management Plans, Labor support person(s), Immediate Larc, Movement Monitoring, Signs and Symptoms of Preeclampsia and Education ROS Const Reports system reviewed and no additional complaints, except as documented, Reports fatigue and Denies fever(s) Eyes Reports system reviewed and no additional complaints, except as documented ENT Reports system reviewed and no additional complaints, except as documented Card Denies chest pain and Denies dyspnea Resp Reports system reviewed and no additional complaints, except as documented, Denies cough and Deniesdyspnea GI Denies abdominal pain and Reports nausea Reports system reviewed and no additional complaints, except as documented Musc Reports system reviewed and no additional complaints, except as documented Skin/Breast Reports system reviewed and no additional complaints, except as documented Neuro Yes system reviewed and no additional complaints, except as documented Psych Reports system reviewed and no additional complaints, except as documented Endo Reports system reviewed and no additional complaints, except as documented and Reports fatigue Exam Const General: healthy appearing, comfortable and no acute distress Orientation: alert [facility] Head: normal to inspection, normocephalic and atraumatic Ears: hearing grossly normal bilaterally and external ears normal Nose: external nose normal and nares normal Mouth: oral mucosae normal Teeth and gingiva: dentition normal Eyes General: appearance normal, both eyes and all related structures Neck Neck: normal visual inspection, no lymphadenopathy and supple Thyroid: thyroid normal Chest Chest palpation & inspection: normal inspection of the chest Breast inspection: normal inspection of the breasts and normal inspection of the axillae Breast palpation: normal palpation of the breasts and normal palpation of the axillae Resp Effort & Inspection: normal respiratory effort GI Inspection: normal to inspection Palpation: soft and no hepatosplenomegaly General: bladder normal to palpation External Female Exam: normal external appearance and normal appearance of the urethra Urethra: normal appearance of the urethra Speculum Exam - Vagina: normal appearance of the vagina and normal vaginal discharge Speculum Exam - Cervix: normal appearance of the cervix Bimanual Exam- Vagina & Uterus: normal bimanual exam, bladder normal to palpation, non-tender and other Bimanual Exam- Adnexa, other: non-tender Skin General: no rashes or lesions noted Neuro Motor: muscle tone normal throughout and no movement abnormalities noted Extrem General: normal to inspection and full ROM Supplemental Info ACOG book given and patient encouraged to read about nutrition, exercise, weight gain, and food avoidance in . Coding Level of Care Code OB Routine Diagnoses History of miscarriage, currently O09.299 Supervision of high-risk O09.90 Obesity affecting O99.210 Hx of section Z98.891 History of hypothyroidism Z86.39 History of gestational diabetes mellitus (GDM) in prior , currently O09.299; Z86.32 Twin dichorionic diamniotic placenta O30.049 8 weeks gestation of Z3A.08 Weeks of gestation: 8 weeks Assessment and Plan Assessment and Plan (1) History of miscarriage, currently : Status: Acute (2) Supervision of high-risk : Status: Acute Comment: , ALLA 10/06/25, PC [place], Jigar (3) Obesity affecting : Status: Acute Comment: HgbA1c (4) Hx of section: Status: Acute (5) History of hypothyroidism: Status: Acute Comment: TSH, T4, TSH R AB (6) History of gestational diabetes mellitus (GDM) in prior , currently : Status: Acute (7) Twin dichorionic diamniotic placenta: Status: Acute Comment: per formal [place]. (8) : Status: Acute Qualifiers: Weeks of gestation: 8 weeks Qualified Code(s): Z3A.08 - 8 weeks gestation of Comment: elects NIPT with Gender, decline carrier Orders: Orders CBC W/Diff, Automated 02/18/25 O09.90 - Supervision of high risk , unspecified, unspecified trimester Type & Screen 02/18/25 O09.90 - Supervision of high risk , unspecified, unspecified trimester, Z86.39 - Personal history of other endocrine, nutritional and metabolic disease Rubella IgG 02/18/25 O09.90 - Supervision of high risk , unspecified, unspecified trimester Hepatitis C Antibody 02/18/25 O09.90 - Supervision of high risk , unspecified, unspecifiedtrimester Hepatitis B Surface Antigen 02/18/25 O09.90 - Supervision of high risk , unspecified, unspecified trimester Culture, Urine 02/18/25 O09.90 - Supervision of high risk , unspecified, unspecified trimester Syphilis Antibodies 02/18/25 O09.90 - Supervision of high risk , unspecified, unspecified trimester Chlamydia/GC GERARD aptima 02/18/25 O09.90 - Supervision of high risk , unspecified, unspecified trimester HIV 02/18/25 O09.90 - Supervision of high risk , unspecified, unspecified trimester Hemoglobin A1c 02/18/25 O09.90 - Supervision of high risk , unspecified, unspecified trimester, O99.210 - Obesity complicating , unspecified trimester Free T4 02/18/25 O09.90 - Supervision of high risk , unspecified, unspecified trimester, Z86.39 - Personal history of other endocrine, nutritional and metabolic disease Thyroid Stim Hormone (TSH) 02/18/25 O09.90 - Supervision of high risk , unspecified, unspecified trimester [facility] Misc. 02/18/25 O09. - Supervision of high risk , unspecified, unspecified trimester, Z86.39 - Personal history of other endocrine, nutritional and metabolic disease SILVANA 02/18/25 O09.90 - Supervision of high risk , unspecified, unspecified trimester Plan Patient oriented to practice and discussed care expectations and screenings. ACOG book offered to patient. Discussed routine and specially indicated labs if needed- patient consents to testing. See problem list details for plan information. Optional screening including maternal carrier screenings, neural tube defect screening, genetic screening options including quad screen, nuchal translucency, sequential screening, and NIPT screening offered to patient and patient chose: nipt planned 02/26/25 1347 sherwin SHEPHERD> Date _ Ashley Mullen MD [facility] Signature: Date (if applicable) CC: ~ [facility]08-11-2025 Radiology Diagnostic study note [facility] Imaging Services [address] [place] [address] Transvaginal w/Preg US MR#: [id number] Acct: [id number] Name: SKYE BRISCOE Rep #: [id number] : 1995 F 29 From: Delgado Link MD PCP: Dr. Stacey Santacruz MD Status: REG CL I Study:Transvaginal w/Preg US Date of Exam: 02/12/25 Exam# [id number] Ordering Dr: Berna Keane CNM PROCEDURE: TRANSVAGINAL W/PREG US 02/12/2025 REASON FOR EXAM: EARLY DATING US TECHNIQUE: TRANSVAGINAL W/PREG US COMPARISON: None FINDINGS: Comments: LMP: Not known Number of Gestational Sacs: 2 Number of Fetuses: 2 Chorionicity and Amnionicity: Dichorionic Ovaries / Adnexa: Both maternal ovaries are visualized and unremarkable. Uterine Abnormalities: Maternal uterus is unremarkable. ----- FETUS A: Gestational Sac Shape: Normal Heart Rate: 116 beats per minute (average) Yolk Sac: Present and unremarkable. Placenta: Presently not well-visualized. Amniotic Fluid Volume: Subjectively normal for gestational age. DIMENSIONS (A): Parameter Measurement / EGA Virgil Rump Length: 3 mm/6 weeks and 1 day Gestational Sac: 1.4 cm/6 weeks and 2 days Yolk Sac: 4 mm/ ESTIMATED GESTATIONAL AGE (A): By Ultrasound: 6 weeks and 2 days ESTIMATED DATE OF DELIVERY (A): By Ultrasound: October 06, 2025 ----- FETUS B: Gestational Sac Shape: Normal Heart Rate: 121 beats per minute (average) Yolk Sac: Present and unremarkable. Placenta: Presently not well-visualized. Amniotic Fluid Volume: Subjectively normal for gestational age. DIMENSIONS (B): Parameter Measurement / EGA Virgil Rump Length: 3 mm/6 weeks and 1 day Gestational Sac: 1.7 cm/6 weeks and 4 days Yolk Sac: 3 mm/6 weeks and 1 day ESTIMATED GESTATIONAL AGE (B): By Ultrasound: 6 weeks and 3 days ESTIMATED DATE OF DELIVERY (B): By Ultrasound: October 05, 2025 US/Transvaginal w/Preg US IMPRESSION: Twin gestation as described. Reading Location: [facility] CC: FLORENCE Keane; Dr. Stacey Santacruz MD ~ Pressure Sealer And Tester: Signed [facility]07-29-2025 Evaluation note* Diagnosis Onset Date Resolution Status Admit Date acute February 02 2:36pm Threatened acute February 02, 2025 2:36pm [facility] Work Phone: 1(247) 410-828507-29-2025 Evaluation note* Diagnosis Onset Date Resolution Status Admit Date acute February 02 2:36pm Threatened resolved February 02, 2025 2:36pm History of gestational diabe susan mellitus (GDM) in prior , currentl acute February 26, 2025 1:08pm History of hypothyroidism acute February 26, 2025 1:08pm History of miscarriage, currently acute February 26, 2025 1:08pm Hx of section acute Au lynsey 2024 1:08pm Obesity affecting acute February 26, 2025 1:08pm acute February 26, 2 025 1:08pm Supervision of high-risk acute February 26 1:08pm Twin dichorionic diamniotic placenta acute February 26 1:08pm [place] [employer] Work Phone: 1(567) 248-877907-29-2025 Evaluation note* Diagnosis Onset Date Resolution Status Admit Date acute February 02 2:36pm Threatened resolved February 02, 2025 2:36pm History of gestational diabetes mellitus (GDM) in prior , currentl acute February 26, 2025 1:08pm History of hypothyroidism acute February 26, 2025 1:08pm History of miscarriage, currently acute February 26, 2025 1:08pm Hx of section acute Au lysney 2024 1:08pm Obesity affecting acute February 26, 2025 1:08pm acute February 26, 2 025 1:08pm Supervision of high-risk acute February 26 1:08pm Twin dichorionic diamniotic placenta acute February 26 1:08pm History of gestational diabetes mellitus (GDM) in prior , currentl acute Sept2024 3:16pm History of hypothyroidism acute April 01, 2025 3:16pm History of miscarriage, currently acute March 3:16pm Hx of section acute Se pt2024 3:16pm Obesity affecting acute April 01, 2025 3:16pm acute March 3:16pm Supervision of high-risk acute April 01, 2025 3:16pm Twin dichorionic diamniotic placenta acute April 01, 2025 3:16pm Cameron-rectal abscess acute Septe mber 2024 2:12pm [facility] Work Phone: 1(410) 125-924107-29-2025 Evaluation note* Diagnosis Onset Date Resolution Status Admit Date acute February 02 2:36pm Threatened resolved February 02, 2025 2:36pm History of gestational diabetes mellitus (GDM) in prior , currentl acute February 26, 2025 1:08pm History of hypothyroidism acute February 26, 2025 1:08pm History of miscarriage, currently acute February 26, 2025 1:08pm Hx of section acute Au 2024 1:08pm Obesity affecting acute February 26, 2025 1:08pm acute February 26, 1:08pm Supervision of high-risk acute February 26 1:08pm Twin dichorionic diamniotic placenta acute February 26 1:08pm History of gestational diabetes mellitus (GDM) in prior , currentl acute Sept2024 3:16pm History of hypothyroidism acute April 01, 2025 3:16pm History of miscarriage, currently acute March 3:16pm Hx of section acute Se ptember 2024 3:16pm Obesity affecting acute April 01, 2025 3:16pm acute March 3:16pm Supervision of high-risk acute April 01, 2025 3:16pm Twin dichorionic diamniotic placenta acute April 01, 2025 3:16pm Cameron-rectal abscess acute Septe mb2024 2:12pm History of gestational diabetes mellitus (GDM) in prior , currentl acute Octobe r 2024 2:33pm History of hypothyroidism acute April 26, 2025 2:33pm History of miscarriage, currently acute April 26, 2025 2:33pm Hx of section acute Oc tob2024 2:33pm Obesity affecting acute April 26, 2025 2:33pm Cameron-rectal abscess acute Octob er 2024 2:33pm acute April 26, 2025 2:33pm Supervision of high-risk acute April 26 2:33pm Twin dichorionic diamniotic placenta acute April 26 2:33pm History of gestational diabetes mellitus (GDM) in prior , currentl acute Octobe r 2024 3:14pm History of hypothyroidism acute April 28, 2025 3:14pm History of miscarriage, currently acute April 28, 2025 3:14pm Hx of section acute Oc tober 2024 3:14pm Obesity affecting acute April 28, 2025 3:14pm Cameron-rectal abscess acute Octob er 2024 3:14pm acute April 28, 2025 3:14pm Supervision of high-risk acute April 28 3:14pm Twin dichorionic diamniotic placenta acute April 28 3:14pm Perianal abscess acute April 29, 2025 9:59am Perianal abscess acute May 06, 2025 1:25pm [place] [employer] Work Phone: 1([phone]) 730-209307-29-2025 Evaluation note* Diagnosis Onset Date Resolution Status Admit Date acute February 02 2:36pm Threatened resolved February 02, 2025 2:36pm History of gestational diabetes mellitus (GDM) in prior , currentl acute February 26, 2025 1:08pm History of hypothyroidism acute February 26, 2025 1:08pm History of miscarriage, currently acute February 26, 2025 1:08pm Hx of section acute Au lynsey 2024 1:08pm Obesity affecting acute February 26, 2025 1:08pm acute February 26, 2 025 1:08pm Supervision of high-risk acute February 26 1:08pm Twin dichorionic diamniotic placenta acute February 26 1:08pm History of gestational diabetes mellitus (GDM) in prior , currentl acute Septem 2024 3:16pm History of hypothyroidism acute April 01, 2025 3:16pm History of miscarriage, currently acute March 3:16pm Hx of section acute Se ptember 2024 3:16pm Obesity affecting acute April 01, 2025 3:16pm acute March 3:16pm Supervision of high-risk acute April 01, 2025 3:16pm Twin dichorionic diamniotic placenta acute April 01, 2025 3:16pm Cameron-rectal abscess acute Septe mber 2024 2:12pm History of gestational diabetes mellitus (GDM) in prior , currentl acute Octobe r 2024 2:33pm History of hypothyroidism acute April 26, 2025 2:33pm History of miscarriage, currently acute April 26, 2025 2:33pm Hx of section acute Oc tob2024 2:33pm Obesity affecting acute April 26, 2025 2:33pm Cameron-rectal abscess acute Octob er 2024 2:33pm acute April 26, 2025 2:33pm Supervision of high-risk acute April 26 2:33pm Twin dichorionic diamniotic placenta acute April 26 2:33pm History of gestational diabetes mellitus (GDM) in prior , currentl acute Octobe r 2024 3:14pm History of hypothyroidism acute April 28, 2025 3:14pm History of miscarriage, currently acute April 28, 2025 3:14pm Hx of section acute Oc tober 2024 3:14pm Obesity affecting acute April 28, 2025 3:14pm Cameron-rectal abscess acute Octob er 2024 3:14pm acute April 28, 2025 3:14pm Supervision of high-risk acute April 28 3:14pm Twin dichorionic diamniotic placenta acute April 28 3:14pm Perianal abscess acute April 29, 2025 9:59am Perianal abscess acute May 06, 2025 1:25pm Cameron-rectal abscess acute Novem 2024 3:11pm [place] [facility] Work Phone: 1(333) 788-857107-22-2025 NoteHNO ID: [id number] Author: JONATHAN WHELAN PA Service: ? Author Type: Physician Exhaust Emissions Automotive Technician Type: Progress Notes Filed: 01/26/2025 16:21 Note Text: [facility] Briscoe is a 29 year old female. Patient presents with: Sore Throat: ST, runny nose and cough x 1 day HPI 29-year-old female presents for sore throat, runny nose and cough x 1 day. No fevers. No chest pain or shortness of breath. She is 4 weeks . She has not taken anything for symptoms. No other complaint. PAST MEDICAL HISTORY Diagnosis Date Finger fracture Kidney infection PAST SURGICAL HISTORY Procedure Laterality Date NONE ALLERGIES Eye Drops [Tetrahydrozoline] MEDICATIONS vits 7/iron/folic/dha ( VIT 7-LPVA-GBMCN-DHA ORAL) Take by mouth. FAMILY HISTORY Problem Relation Age of Onset No Known Problems Mother Diabetes Father No Known Problems Sister No Known Problems Brother Diabetes Maternal Grandmother Cancer Maternal Grandfather Skin No Known Problems Paternal Grandmother Diabetes Paternal Grandfather No Known Problems Brother Social History Tobacco Use Smoking status: Never Smokeless tobacco: Never Substance Use Topics Alcohol use: Never Drug use: Never Review of Systems Constitutional: Negative for chills and fever. HENT: Positive for congestion and sore throat. Negative for ear pain. Respiratory: Positive for cough. Negative for shortness of breath. Cardiovascular: Negative for chest pain. Gastrointestinal: Negative for diarrhea and vomiting. Objective BP 122/76 Pulse 80 Temp 37.3 ?C (99.2 ?F) (Tympanic) Resp 18 Wt 99.7 kg (219 lb 12.8 oz) LMP 07/20/2024 (Approximate) SpO2 99% BMI 36.02 kg/m? Physical Exam Vitals and nursing note reviewed. Constitutional: General: She is not in acute distress. Appearance: Normal appearance. She is not toxic-appearing. HENT: Right Ear: Tympanic membrane and ear canal normal. Left Ear: Tympanic membrane and ear canal normal. Nose: Nose normal. Mouth/Throat: Mouth: Mucous membranes are moist. Pharynx: Uvula midline. Posterior oropharyngeal erythema present. No oropharyngeal exudate. Tonsils: 1+ on the right. 1+ on the left. Eyes: Conjunctiva/sclera: Conjunctivae normal. Cardiovascular: Rate and Rhythm: Normal rate and regular rhythm. Pulmonary: Effort: Pulmonary effort is normal. Breath sounds: Normal breath sounds. Skin: General: Skin is warm and dry. Neurological: Mental Status: She is alert. {ASSESSMENT/PLAN: 1. URI, acute - ICD9: 465.9, ICD10: J06.9 (primary diagnosis) - Discussed viral etiology and rationale for treatment. - Group A strep molecular testing negative - Symptomatic treatment with prn analgesia - Supportive care with fluids and rest - Declines viral swab 2. Sore throat - ICD9: 462, ICD10: J02.9 - suspect viral - Group A strep molecular testing negative - Discussed supportive care treatment with fluids, rest and analgesia. - Given a list of safe medications for symptoms. - STREP A MOLECULAR (POC) Diagnosis and treatment plan were discussed and questions were answered to the patient's satisfaction. Pt acknowledged understanding of concepts and follow up plan. Specific signs and symptoms that would indicate the need for higher level of care were discussed in detail warranting prompt ER evaluation. SARAH Cuellar Disposition The [facility]. [facility] of Present illness Narrative* Jonathan Whelan PA - 01/26/2025 4:20 PM EDT [facility] Sanjay Briscoe is a 29 year old female. Patient presents with: Sore Throat: ST, runny nose and cough x 1 day HPI 29-year-old female presents for sore throat, runny nose and cough x 1 day. No fevers. No chest painor shortness of breath. She is 4 weeks . She has not taken anything for symptoms. No other complaint. PAST MEDICAL HISTORY Diagnosis Date Finger fracture Kidney infection PAST SURGICAL HISTORY Procedure Laterality Date NONE ALLERGIES Eye Drops [Tetrahydrozoline] MEDICATIONS vits 7/iron/folic/dha ( VIT 2-FHUX-TWBGO-DHA ORAL) Take by mouth. FAMILY HISTORY Problem Relation Age of Onset No Known Problems Mother Diabetes Father No Known Problems Sister No Known Problems Brother Diabetes Maternal Grandmother Cancer Maternal Grandfather Skin No Known Problems Paternal Grandmother Diabetes Paternal Grandfather No Known Problems Brother Social History Tobacco Use Smoking status: Never Smokeless tobacco: Never Substance Use Topics Alcohol use: Never Drug use: Never Review of Systems Constitutional: Negative for chills and fever. HENT: Positive for congestion and sore throat. Negative for ear pain. Respiratory: Positive for cough. Negative for shortness of breath. Cardiovascular: Negative for chest pain. Gastrointestinal: Negative for diarrhea and vomiting. Objective BP 122/76 Pulse 80 Temp 37.3 C (99.2 F) (Tympanic) Resp 18 Wt 99.7 kg (219 lb 12.8 oz) LMP 07/20/2024 (Approximate) SpO2 99% BMI 36.02 kg/m Physical Exam Vitals and nursing note reviewed. Constitutional: General: She is not in acute distress. Appearance: Normal appearance. She is not toxic-appearing. HENT: Right Ear: Tympanic membrane and ear canal normal. Left Ear: Tympanic membrane and ear canal normal. Nose: Nose normal. Mouth/Throat: Mouth: Mucous membranes are moist. Pharynx: Uvula midline. Posterior oropharyngeal erythema present. No oropharyngeal exudate. Tonsils: 1+ on the right. 1+ on the left. Eyes: Conjunctiva/sclera: Conjunctivae normal. Cardiovascular: Rate and Rhythm: Normal rate and regular rhythm. Pulmonary: Effort: Pulmonary effort is normal. Breath sounds: Normal breath sounds. Skin: General: Skin is warm and dry. Neurological: Mental Status: She is alert. {ASSESSMENT/PLAN: 1. URI, acute - ICD9: 465.9, ICD10: J06.9 (primary diagnosis) - Discussed viral etiology and rationale for treatment. - Group A strep molecular testing negative - Symptomatic treatment with prn analgesia - Supportive care with fluids and rest - Declines viral swab 2. Sore throat - ICD9: 462, ICD10: J02.9 - suspect viral - Group A strep molecular testing negative - Discussed supportive care treatment with fluids, rest and analgesia. - Given a list of safe medications for symptoms. - STREP A MOLECULAR (POC) Diagnosis and treatment plan were discussed and questions were answered to the patient's satisfaction. Pt acknowledged understanding of concepts and follow up plan. Specific signs and symptoms that would indicate the need for higher level of care were discussed in detail warranting prompt ER evaluation. SARAH Cuellar Disposition The patient was discharged. Procedures [facility] Telephone encounter Note * Telephone Encounter - Brenda Hernandez RN - 01/14/2025 8:18 AM EDT Patient notified of results and provider's instructions. Patient verbalizes understanding. Brenda Hernandez RN [facility]07-10-2025 Miscellaneous Notes* Telephone Encounter - Brenda Hernandez RN - 01/14/2025 8:18 AM EDT Patient notified of results and provider's instructions. Patient verbalizes understanding. Brenda Hernandez RN * Telephone Encounter - Jonathan Whelan PA - 01/14/2025 8:03 AM EDT Please contact patient and let her know she tested positive for yeast. Continue Monistat as discussed at visit for yeast. BV swab was negative. documented in this encounter[facility] Telephone encounter Note * Telephone Encounter - Jonathan Whelan PA - 01/14/2025 8:03 AM EDT Please contact patient and let her know she tested positive for yeast. Continue Monistat as discussed at visit for yeast. BV swab was negative. [facility] Work Phone: 1(884) 464-620607-09-2025 NoteHNO ID: [id number] Author: TORO SAUL MD Service: ? Author Type: Physician Type: Progress Notes Filed: 01/13/2025 15:47 Note Text: [facility] Skye Briscoe is a 29 year old female. Patient presents with: Vaginal Problem: Vaginal discharge and possible yeast infection x 1 day Patient presents with vaginal symptoms since last night. She has had some discharge with vaginal irritation. It reminds her when she had a yeast infection during . She does does note dysuria and some frequency. She notes no change in expected baseline abdominal or back pain. Denies fever. Denies history of UTI. Denies concern for STI. Vaginal Problem Review of Systems Genitourinary: Positive for vaginal discharge. Objective BP 122/82 Pulse 64 Temp 36.9 ?C (98.5 ?F) (Tympanic) Resp 16 Wt 100.8 kg (222 lb 3.6 oz) LMP 07/20/2024 (Approximate) SpO2 99% BMI 36.42 kg/m? Physical Exam Constitutional: General: She is not in acute distress. HENT: Mouth/Throat: Mouth: Mucous membranes are moist. Eyes: Extraocular Movements: Extraocular movements intact. Conjunctiva/sclera: Conjunctivae normal. Pupils: Pupils are equal, round, and reactive to light. Cardiovascular: Rate and Rhythm: Normal rate and regular rhythm. Heart sounds: No murmur heard. Pulmonary: Effort: No respiratory distress. Breath sounds: No wheezing, rhonchi or rales. Abdominal: Palpations: There is no mass. Tenderness: There is no abdominal tenderness (Suprapubic discomfort with palpation). There is no right CVA tenderness or left CVA tenderness. Musculoskeletal: Cervical back: Neck supple. Neurological: Mental Status: She is alert. {ASSESSMENT/PLAN: 1. Vaginal discharge - ICD9: 623.5, ICD10: N89.8 - GUANAKITO/TRICHOMONAS NAAT - BACTERIAL VAGINOSIS NAAT Patient will hop picker [id number] Monistat. She may continue this if positive for Guan[place]ito. Declines STI or urine testing. Toro Saul MD Differential Diagnoses - vaginitis is more likely for the following reason(s): suggested by HANDP - UTI is less likely for the following reason(s): Presence of discharge and external irritation [facility] History of Present illness Narrative* Toro Saul MD - 01/13/2025 3:38 PM EDT URGENT CARE [facility] Skye Briscoe is a 29 year old female. Patient presents with: Vaginal Problem: Vaginal discharge and possible yeast infection x 1 day Patient presents with vaginal symptoms since last night. She has had some discharge with vaginal irritation. It reminds her when she had a yeast infection during . She does does note dysuriaand some frequency. She notes no change in expected baseline abdominal or back pain. Denies fever. Denies history of UTI. Denies concern for STI. Vaginal Problem Review of Systems Genitourinary: Positive for vaginal discharge. Objective BP 122/82 Pulse 64 Temp 36.9 C (98.5 F) (Tympanic) Resp 16 Wt 100.8 kg (222 lb 3.6 oz) LMP 07/20/2024 (Approximate) SpO2 99% BMI 36.42 kg/m Physical Exam Constitutional: General: She is not in acute distress. HENT: Mouth/Throat: Mouth: Mucous membranes are moist. Eyes: Extraocular Movements: Extraocular movements intact. Conjunctiva/sclera: Conjunctivae normal. Pupils: Pupils are equal, round, and reactive to light. Cardiovascular: Rate and Rhythm: Normal rate and regular rhythm. Heart sounds: No murmur heard. Pulmonary: Effort: No respiratory distress. Breath sounds: No wheezing, rhonchi or rales. Abdominal: Palpations: There is no mass. Tenderness: There is no abdominal tenderness (Suprapubic discomfort with palpation). There is no right CVA tenderness or left CVA tenderness. Musculoskeletal: Cervical back: Neck supple. Neurological: Mental Status: She is alert. {ASSESSMENT/PLAN: 1. Vaginal discharge - ICD9: 623.5, ICD10: N89.8 - GUANAKITO/TRICHOMONAS NAAT - BACTERIAL VAGINOSIS NAAT Patient will hop picker [id number] Monistat. She may continue this if positive for Guan[place]ito. Declines STI or urine testing. Toro Saul MD Differential Diagnoses - vaginitis is more likely for the following reason(s): suggested by H&P - UTI is less likely for the following reason(s): Presence of discharge and external irritation Procedures documented in this encounterPrem[facility]03-27-[facility] Radiology Diagnostic study note [facility] Imaging Services [address], [place] [address] Abdomen/Pelvis W IV Cont ONLY MR#: [id number] Acct: [id number] Name: SKYE BRISCOE Rep #: [id number] : 1995 F 29 From: Maco Benton MD PCP: Dr. Stacey Santacruz MD Status: REG ER Study:Abdomen/Pelvis W IV Cont ONLY Date of E xam: 10/01/24 Exam# [id number] Ordering Dr: Khadar Abrams DO EXAM: CT abdomen and pelvis with IV contrast only CLINICAL HISTORY: Abdominal pain COMPARISON: CT abdomen and pelvis 09/24/2024 TECHNIQUE: CT of the abdomen and pelvis with contrast with coronal and sagittal reformattedimages. 98 cc [id number] FINDINGS: The lung bases are clear. The liver, contracted gallbladder, adrenal glands, pancreas and spleen appear within limits. Patchy appearance of the left renal nephrogram with associated perinephric and peripelvic stranding, edema. Mild patchy appearance to the right renal nephrogram concerning for pyelonephritis, clinically correlate. No focal abscess identified. Small nonobstructing stone upper pole right kidney and focal cortical scarring again noted. The renal arteries and renal veins appear to contain contrast as expected. No hydronephrosis. No evidence of ureteral or bladder stoneidentified. Mostly collapsed bladder appears within limits. No bowel dilation or free air. Normal caliber appendix without secondary signs. Abdominal aorta appears within limits. Shotty appearing retroperitoneal nonenlarged by CT criteria lymph nodes. The uterus and ovaries appear within limits with small follicle noted on the right. No free fluid seen. 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 Bilateral asymmetric left more than right sclerotic change adjacent to the SI joints for example axial 100 again noted suggesting sacroiliitis. CT/Abdomen/Pelvis W IV Cont ONLY IMPRESSION: Findings are most concerning/consistent with left greater than right pyelonephritis as above, clinically correlate. 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 Bilateral asymmetric left more than right sclerotic change adjacent to the SI joints for example axial 100 again noted suggesting sacroiliitis. Reading Location: [id number] CC: Dr. Stacey Santacruz MD; Dr. Khadar Abrams, DO ~ Pressure Sealer And Tester: Signed [facility]03-26-2025 Radiology Diagnostic study note [facility] Imaging Services [address] [place] [address] Transvaginal w/Preg US MR#: [id number] Acct: [id number] Name: SKYE BRISCOE Rep #: [id number] : 1995 F 29 From: Darby Caceres MD PCP: Dr. Stacey Santacruz MD Status: REG CL I Study:Transvaginal w/Preg US Date of Exam: 09/30/24 Exam# [id number] Ordering Dr: Rhys Gomez NP BOAT DETAILER-C PROCEDURE: TRANSVAGINAL W/PREG US 09/30/2024 REASON FOR EXAM: 29-year-old female, spontaneous in August. Patient now with vaginal bleeding. History ofC-section. TECHNIQUE: Transabdominal ultrasound imaging was obtained as well as color Doppler interrogation. COMPARISON: Pelvic ultrasound 09/07/2024. FINDINGS: Measurements: Uterus: 9.2 x 6.7 x 5.4 cm with a volume of 173 mL Endometrial Thickness: 1.7 cm Right Ovary: 4.3 x 2.6 x 2.6 cm with a volume of 15.0 mL. Left Ovary: 2.8 x 2.4 x 1.6 cm with a volume of 5.5 mL. Uterus: Normal size, myometrial echotexture, and contour. The cervical os is closed. Endometrium: Homogeneously thickened. No hypervascularity. Right ovary: Small right corpus luteum. Left ovary: Unremarkable. Other: No large pelvic mass identified. No free pelvic fluid. US/Transvaginal w/Preg US IMPRESSION: Mild endometrial thickening without discrete mass or hypervascularity. Reading Location: [facility] CC: BOAT DETAILER-C Jocelyn Gomez; Dr. Stacey Santacruz MD ~ Pressure Sealer And Tester: Signed [facility]03-20-2025 Radiology Diagnostic study note [facility] Imaging Services [address] [place] [address] Abdomen/Pelvis without Cont MR#: [id number] Acct: [id number] Name: SKYE BRISCOE Rep #: [id number] : 1995 F 29 From: Darby Caceres MD PCP: Dr. Stacey Santacruz MD Status: REG ER Study:Abdomen/Pelvis without Cont Date of Exa m: 09/24/24 Exam# [id number] Ordering Dr: Khadar Abrams DO PROCEDURE: ABDOMEN/PELVIS WITHOUT CONT 09/24/2024 REASON FOR EXAM: 29-year-old female, right flank pain beginning this morning, history of C- section and kidney infection. TECHNIQUE: Abdomen and pelvis CT without intravenous contrast. Coronal and Sagittal reconstruction series wereprovided. One or more dose reduction techniques were used (e.g., Automated exposure control, adjustment of the mA and/or kV according to patient size, use of iterative reconstruction technique). PATIENT PREPARATION: Per protocol ORAL CONTRAST TYPE: None. COMPARISON: CT abdomen pelvis 08/01/2024. FINDINGS: Noncontrast technique limits evaluation of the abdominal and pelvic viscera. Lung bases: The heart is normal in size. The lung bases are clear. Liver: The unopacified liver is normal in size. No biliary ductal dilation. Gallbladder: No radiopaque stones within the gallbladder. Spleen: Pancreas: The unopacified pancreas is unremarkable. Adrenals: Kidneys: Stable nonobstructing right upper pole renal calculus with associated renal cortical scarring. New, tiny nonobstructing left lower pole renal calculus. Bladder: The urinary bladder is minimally distended and unremarkable. Reproductive Organs: Unremarkable. Bowel: The bowel loops are normal in caliber. No ascites or pneumoperitoneum. Normal appendix. Lymph nodes: No suspicious lymphadenopathy. Vasculature: The abdominal aorta and IVC contours are normal. Noncontrast technique limits evaluation. 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 Mild thoracolumbar spondylosis. No aggressive osseous lesions. Ornamental jewelry within the bilateral upper chest. CT/Abdomen/Pelvis without Cont IMPRESSION: NO ACUTE FINDINGS AT THE ABDOMEN OR PELVIS ON NONCONTRAST CT. Reading Location: [facility] CC: Dr. Stacey Santacruz MD; Dr. Khadar Abrams DO ~ Pressure Sealer And Tester: Signed [facility]03-20-2025 NoteHNO ID: [id number] Author: BARBRA TORREZ PA-C Service: ? Author Type: Physician Exhaust Emissions Automotive Technician Type: Progress Notes Filed: 09/24/2024 13:25 Note Text: This note was created using [email or web address]. Subjective Skye Briscoe is a 29 year old female. Patient is a 29-year-old female complains of right upper and right lower quadrant abdominal pain that has been present for the past 1 day. Patient denies nausea, vomiting or diarrhea. Patient has no history of gallbladder disease or other GI conditions. Patient was immediately advised that she requires evaluation in an emergency department laboratory testing, CT scan and ultrasound imaging can be obtained. Patient verbalizes clear understanding of this recommendation and states that she will proceed immediately to the emergency department at [facility]. Review of Systems Objective [facility] 07/20/2024 (Approximate) [facility] History of Present illness Narrative* Barbra Torrez PA-C - 09/24/2024 1:23 PM EDT This note was created using PastBookter. Subjective Skye Briscoe is a 29 year old female. Patient is a 29-year-old female complains of right upper and right lower quadrant abdominal pain that has been present for the past 1 day. Patient denies nausea, vomiting or diarrhea. Patient has no history of gallbladder disease or other GI conditions. Patient was immediately advised that she requires evaluation in an emergency department laboratory testing, CT scan and ultrasound imaging can beobtained. Patient verbalizes clear understanding of this recommendation and states that she will proceed immediately to the emergency department at [facility]. Review of Systems Objective [facility] 07/20/2024 (Approximate) Physical Exam Assessment and Plan documented in this encounterPrem[facility]03-[facility] Evaluation note* Diagnosis Onset Date Resolution Status Admit Date Complete acute September 072024 1:34pm [facility] Work Phone: 1(660) 411-913503-03-2025 Radiology Diagnostic study note [facility] Imaging Services [address], [place] [address] Transvaginal w/Preg US MR#: [id number] Acct: [id number] Name: SKYE BRISCOE Rep #: [id number] : 1995 F 29 From: Antoinette Kline MD PCP: Dr. Stacey Santacruz MD Status: REG CL I Study:Transvaginal w/Preg US Date of Exam: 09/07/24 Exam# [id number] Ordering Dr: Prudence Borrero DO PROCEDURE: TRANSVAGINAL W/PREG US REASON FOR EXAM: miscarriage fu. Reportedly, 7 weeks and 0 days by LMP. Beta hCG not provided, previously reported as 13 on 09/01/2024. TECHNIQUE: Transvaginal pelvic ultrasound COMPARISON: 09/03/2024. FINDINGS: Measurements: Uterus: 9.0 x 5.9 x 4.9 cm. Endometrial Thickness: 8 mm. Right Ovary: 2.7 x 1.7 x 1.6 cm. Left Ovary: 3.9 x 2.6 x 1.9 cm. Uterus: Unremarkable. Tiny cervical likely nabothian cyst. Endometrium: Unremarkable, homogeneously echogenic. No abnormal vascularity detected. Right ovary: Unremarkable. Left ovary: Unremarkable. Other adnexal findings: None. Free fluid: None visualized US/Transvaginal w/Preg US IMPRESSION: 1. No intrauterine is identified. In the setting of a positive test, unless prior outside imaging has previously established an intrauterine location, findings technically representpregnancy of unknownlocation with differential considerations including normal early , nonviable , completed miscarriage, or nonvisualized ectopic. Recommend continued close clinical and imaging follow-up including serial beta HCG. 2. Endometrial thickness has decreased, now within normal limits, and without detected abnormal vascularity, arguing against retained products of conception. 3. Additional description as above. Reading Location: [id number] CC: Dr. Stacey Santacruz MD; Dr. Prudence Law DO ~ Pressure Sealer And Tester: Signed [facility]02-17-2025 Telephone encounter Note* Telephone Encounter - Aline Corcoran LPN - 08/24/2024 8:15 AM EST Spoke with pt and information listed below given. Pt verbalizes understanding. Aline Corcoran LPN [facility]02-17-2025 Miscellaneous Notes* Telephone Encounter - Aline Corcoran LPN - 08/24/2024 8:15 AM EST Spoke with pt and information listed below given. Pt verbalizes understanding. Aline Corcoran LPN * Telephone Encounter - Barbara Gonzalez LPN - 08/24/2024 7:48 AM EST Left message for patient to return call for results.Barbara Gonzalez LPN documented in this encounterPrem[facility]02-17-2025 Telephone encounter Note * Telephone Encounter - Barbara Gonzalez LPN - 08/24/2024 7:48 AM EST Left message for patient to return call for results.Barbara Gonzalez LPN [facility]02-14-2025 Instructions* Patient Instructions* Martha Hansen APRN.[employer] PIERCER - 08/21/2024 4:18 PM EST ASSESSMENT/PLAN: 1. Bacterial sinusitis - ICD9: 473.9, 041.9, ICD10: J32.9, B96.89 (primary diagnosis) - Will begin treatment with as per antibiotic as written, see orders - Supportive care with plenty of fluids, rest, and analgesia prn. - AMOXICILLIN 875 MG-POTASSIUM CLAVULANATE 125 MG TABLET 2. Missed period - ICD9: 626.4, ICD10: N92.6 - UA DIP,URINE HCG (POC) 3. Other acute nonsuppurative otitis media of both ears, recurrence not specified - ICD9: 381.00, ICD10: H65.193 - Will begin treatment with as per antibiotic as written, see orders - Supportive care with plenty of fluids, rest, and analgesia prn. - AMOXICILLIN 875 MG-POTASSIUM CLAVULANATE 125 MG TABLET 4. Fatigue, unspecified type - ICD9: 780.79, ICD10: R53.83 - UA DIP, URINE (POC) - BACTERIAL CULTURE, URINE Office Visit on 08/21/2024 Component Date Value Ref Range Status Urine hCG (POCT) 08/21/2024 Negative Negative Final Location:[facility], [address] [place] [address], [place], [address] [employer] Work[employer] (POCT) 08/21/2024 Internal QC OK Final GLUCOSE UA (POCT) 08/21/2024 Negative Negative mg/dL Final BILIRUBIN UA (POCT) 08/21/2024 Negative Negative Final KETONE UA (POCT) 08/21/2024 Negative Negative mg/dL Final SPECIFIC GRAVITY UA (POCT) 08/21/2024 1.020 1.005 - 1.030 Final HEMOGLOBIN/BLOOD UA (POCT) 08/21/2024 Negative Negative Final PH UA (POCT) 08/21/2024 7.0 4.5 - 8.0 Final PROTEIN UA (POCT) 08/21/2024 Negative Negative mg/dL Final UROBILINOGEN UA (POCT) 08/21/2024 0.2 Normal E.U./dL Final NITRITE UA (POCT) 08/21/2024 Positive (A) Negative Final LEUKOCYTES UA (POCT) 08/21/2024 Negative Negative Final COLOR UA (POCT) 08/21/2024 Yellow Final CLARITY UA (POCT) 08/21/2024 Cloudy Final - Follow-up with your PCP in 3-5 days if symptoms have not improved or sooner if symptoms worsen - Discussed red flags and need for immediate medical evaluation if any occur. - Discussed supportive care treatment with fluids, rest and analgesia. - Discussed expected course of illness Martha Hansen APRN.MARY documented in this encounterPremier Health [facility]02-14-2025 NoteHNO ID: [id number] Author: MARTHA HANSEN APRN.CNP Service: ? Author Type: Nurse Practitioner Type: Progress Notes Filed: 08/24/2024 07:45 Note Text: Subjective Skye Briscoe is a 29 year old female who presents with 9 days of cough, congestion, fatigue. Has right ear pain in the mornings. Cough is productive. Denies fever or shortness of breath. Notes being one day late for period-is trying to conceive. Cough Associated symptoms include ear pain. Pertinent negatives include no chills, no sore throat, no myalgias and no shortness of breath. Ear Pain Associated symptoms include congestion and coughing. Pertinent negatives include no chills, fever, myalgias or sore throat. Skye Briscoe is a 29 year old female who presents with 9 days of cough, congestion, fatigue. Has right ear pain in the mornings. Cough is productive. Denies fever or shortness of breath. Notes being one day late for period-is trying to conceive. Review of Systems Constitutional: Positive for malaise/fatigue. Negative for chills and fever. HENT: Positive for congestion and ear pain. Negative for sore throat. Respiratory: Positive for cough and sputum production. Negative for shortness of breath. Cardiovascular: Negative. Genitourinary: Negative for dysuria, frequency and urgency. Musculoskeletal: Negative for myalgias. BP 144/96 Pulse 75 Temp 37.3 ?C (99.2 ?F) Resp 24 Wt 124 kg (273 lb 5.9 oz) LMP 07/20/2024 (Approximate) SpO2 99% BMI 44.80 kg/m? PAST MEDICAL HISTORY Diagnosis Date Finger fracture Kidney infection PAST SURGICAL HISTORY Procedure Laterality Date NONE ALLERGIES Eye Drops [Tetrahydrozoline] MEDICATIONS levothyroxine (SYNTHROID) 100 mcg tablet Take 1 tablet by mouth every afternoon. PNV no.95/ferrous fum/folic ac ( ORAL) Take by mouth. benzonatate (TESSALON PERLES) 100 mg capsule Take 2 capsules by mouth three times a day as needed for cough. (Patient not taking: Reported on 08/21/2024) norethindrone (AYGESTIN) 5 mg tablet (Patient not taking: Reported on 08/21/2024) FAMILY HISTORY Problem Relation Age of Onset No Known Problems Mother Diabetes Father No Known Problems Sister No Known Problems Brother Diabetes Maternal Grandmother Cancer Maternal Grandfather Skin No Known Problems Paternal Grandmother Diabetes Paternal Grandfather No Known Problems Brother Social History Tobacco Use Smoking status: Never Smokeless tobacco: Never Substance Use Topics Alcohol use: Never Drug use: Never Objective Physical Exam Vitals and nursing note reviewed. Constitutional: General: She is not in acute distress. Appearance: Normal appearance. She is not ill-appearing. HENT: Right Ear: Ear canal and external ear normal. A middle ear effusion is present. Left Ear: Ear canal and external ear normal. Tympanic membrane is injected. Nose: Nose normal. Mouth/Throat: Pharynx: Uvula midline. No oropharyngeal exudate or posterior oropharyngeal erythema. Cardiovascular: Rate and Rhythm: Normal rate and regular rhythm. Heart sounds: Normal heart sounds. Pulmonary: Effort: Pulmonary effort is normal. No respiratory distress. Breath sounds: Normal breath sounds. No wheezing or rales. Musculoskeletal: Cervical back: Neck supple. Lymphadenopathy: Cervical: No cervical adenopathy. Skin: General: Skin is warm and dry. Findings: No erythema or rash. Neurological: Mental Status: She is alert. ASSESSMENT/PLAN: 1. Bacterial sinusitis - ICD9: 473.9, 041.9, ICD10: J32.9, B96.89 (primary diagnosis) - Will begin treatment with as per antibiotic as written, see orders - Supportive care with plenty of fluids, rest, and analgesia prn. - AMOXICILLIN 875 MG-POTASSIUM CLAVULANATE 125 MG TABLET 2. Missed period - ICD9: 626.4, ICD10: N92.6 - UA DIP,URINE HCG (POC) 3. Other acute nonsuppurative otitis media of both ears, recurrence not specified - ICD9: 381.00, ICD10: H65.193 - Will begin treatment with as per antibiotic as written, see orders - Supportive care with plenty of fluids, rest, and analgesia prn. - AMOXICILLIN 875 MG-POTASSIUM CLAVULANATE 125 MG TABLET 4. Fatigue, unspecified type - ICD9: 780.79, ICD10: R53.83 - UA DIP, URINE (POC) - BACTERIAL CULTURE, URINE Office Visit on 08/21/2024 Component Date Value Ref Range Status Urine hCG (POCT) 08/21/2024 Negative Negative Final Location:[facility], [facility], [place], [address] [employer] Work[employer] (POCT) 08/21/2024 Internal QC OK Final GLUCOSE UA (POCT) 08/21/2024 Negative Negative mg/dL Final BILIRUBIN UA (POCT) 08/21/2024 Negative Negative Final KETONE UA (POCT) 08/21/2024 Negative Negative mg/dL Final SPECIFIC GRAVITY UA (POCT) 08/21/2024 1.020 1.005 - 1.030 Final HEMOGLOBIN/BLOOD UA (POCT) 08/21/2024 Negative Negative Final PH UA (POCT) 08/21/2024 7.0 4.5 - 8.0 Final PROTEIN UA (POCT) 08/21/2024 Negative Negative mg/dL Final UROBI (more content not included)...[facility]02-14-2025 History of Present illness Narrative* Martha Hansen, CAROLANN.[employer] - 08/21/2024 3:55 PM EST Subjective Cough Associated symptoms include ear pain. Pertinent negatives include no chills, no sore throat, no myalgias and no shortness of breath. Ear Pain Associated symptoms include congestion and coughing. Pertinent negatives include no chills, fever, myalgias or sore throat. Skye Briscoe is a 29 year old female who presents with 9 days of cough, congestion, fatigue. Has right ear pain in the mornings. Cough is productive. Denies fever or shortness of breath. Notes being one day late for period-is trying to conceive. Review of Systems Constitutional: Positive for malaise/fatigue. Negative for chills and fever. HENT: Positive for congestion and ear pain. Negative for sore throat. Respiratory: Positive for cough and sputum production. Negative for shortness of breath. Cardiovascular: Negative. Genitourinary: Negative for dysuria, frequency and urgency. Musculoskeletal: Negative for myalgias. BP 144/96 Pulse 75 Temp 37.3 C (99.2 F) Resp 24 Wt 124 kg (273 lb 5.9 oz) LMP 07/20/2024 (Approximate) SpO2 99% BMI 44.80 kg/m PAST MEDICAL HISTORY Diagnosis Date Finger fracture Kidney infection PAST SURGICAL HISTORY Procedure Laterality Date NONE ALLERGIES Eye Drops [Tetrahydrozoline] MEDICATIONS levothyroxine (SYNTHROID) 100 mcg tablet Take 1 tablet by mouth every afternoon. PNV no.95/ferrous fum/folic ac ( ORAL) Take by mouth. benzonatate (TESSALON PERLES) 100 mg capsule Take 2 capsules by mouth three times a day as needed for cough. (Patient not taking: Reported on 08/21/2024) norethindrone (AYGESTIN) 5 mg tablet (Patient not taking: Reported on 08/21/2024) FAMILY HISTORY Problem Relation Age of Onset No Known Problems Mother Diabetes Father No Known Problems Sister No Known Problems Brother Diabetes Maternal Grandmother Cancer Maternal Grandfather Skin No Known Problems Paternal Grandmother Diabetes Paternal Grandfather No Known Problems Brother Social History Tobacco Use Smoking status: Never Smokeless tobacco: Never Substance Use Topics Alcohol use: Never Drug use: Never Objective Physical Exam Vitals and nursing note reviewed. Constitutional: General: She is not in acute distress. Appearance: Normal appearance. She is not ill-appearing. HENT: Right Ear: Ear canal and external ear normal. A middle ear effusion is present. Left Ear: Ear canal and external ear normal. Tympanic membrane is injected. Nose: Nose normal. Mouth/Throat: Pharynx: Uvula midline. No oropharyngeal exudate or posterior oropharyngeal erythema. Cardiovascular: Rate and Rhythm: Normal rate and regular rhythm. Heart sounds: Normal heart sounds. Pulmonary: Effort: Pulmonary effort is normal. No respiratory distress. Breath sounds: Normal breath sounds. No wheezing or rales. Musculoskeletal: Cervical back: Neck supple. Lymphadenopathy: Cervical: No cervical adenopathy. Skin: General: Skin is warm and dry. Findings: No erythema or rash. Neurological: Mental Status: She is alert. ASSESSMENT/PLAN: 1. Bacterial sinusitis - ICD9: 473.9, 041.9, ICD10: J32.9, B96.89 (primary diagnosis) - Will begin treatment with as per antibiotic as written, see orders - Supportive care with plenty of fluids, rest, and analgesia prn. - AMOXICILLIN 875 MG-POTASSIUM CLAVULANATE 125 MG TABLET 2. Missed period - ICD9: 626.4, ICD10: N92.6 - UA DIP,URINE HCG (POC) 3. Other acute nonsuppurative otitis media of both ears, recurrence not specified - ICD9: 381.00, ICD10: H65.193 - Will begin treatment with as per antibiotic as written, see orders - Supportive care with plenty of fluids, rest, and analgesia prn. - AMOXICILLIN 875 MG-POTASSIUM CLAVULANATE 125 MG TABLET 4. Fatigue, unspecified type - ICD9: 780.79, ICD10: R53.83 - UA DIP, URINE (POC) - BACTERIAL CULTURE, URINE Office Visit on 08/21/2024 Component Date Value Ref Range Status Urine hCG (POCT) 08/21/2024 Negative Negative Final Location:[facility], [address] [place] [address], [place], [address] [employer] (POCT) 08/21/2024 Internal QC OK Final GLUCOSE UA (POCT) 08/21/2024 Negative Negative mg/dL Final BILIRUBIN UA (POCT) 08/21/2024 Negative Negative Final KETONE UA (POCT) 08/21/2024 Negative Negative mg/dL Final SPECIFIC GRAVITY UA (POCT) 08/21/2024 1.020 1.005 - 1.030 Final HEMOGLOBIN/BLOOD UA (POCT) 08/21/2024 Negative Negative Final PH UA (POCT) 08/21/2024 7.0 4.5 - 8.0 Final PROTEIN UA (POCT) 08/21/2024 Negative Negative mg/dL Final UROBILINOGEN UA (POCT) 08/21/2024 0.2 Normal E.U./dL Final NITRITE UA (POCT) 08/21/2024 Positive (A) Negative Final LEUKOCYTES UA (POCT) 08/21/2024 Negative Negative Final COLOR UA (POCT) 08/21/2024 Yellow Final CLARITY UA (POCT) 08/21/2024 Cloudy Final - Follow-up with your PCP in 3-5 days if symptoms have not improved or sooner if symptoms worsen - Discussed red flags and need for immediate medical evaluation if any occur. - Discussed supportive care treatment with fluids, rest and analgesia. - Discussed expected course of illness Martha Hansen APRN.[employer] documented [facility] NoteHNO ID: [id number] Author: JONATHAN WHELAN PA Service: ? Author Type: Physician [employer] Autom[employer] Technician Type: Progress Notes Filed: 08/01/2024 10:55 Note Text: This note was created using NoteWriter. Subjective Skye Briscoe is a 29 year old female. HPI 29-year-old female presents for right-sided pelvic pain. Patient states she has had right-sided pelvic pain since yesterday. She states a few weeks ago she had pain on the left side, but that resolved. Patient states that pain comes in waves. She denies any dysuria, hematuria, fevers, vomiting, diarrhea. She states she has had bladder infections in the past. She denies any history of kidney stones. LMP was 07/20/2024. No other complaint. PAST MEDICAL HISTORY Diagnosis Date Finger fracture Kidney infection PAST SURGICAL HISTORY Procedure Laterality Date NONE ALLERGIES Eye Drops [Tetrahydrozoline] MEDICATIONS levothyroxine (SYNTHROID) 100 mcg tablet Take 1 tablet by mouth every afternoon. benzonatate (TESSALON PERLES) 100 mg capsule Take 2 capsules by mouth three times a day as needed for cough. norethindrone (AYGESTIN) 5 mg tablet PNV no.95/ferrous fum/folic ac ( ORAL) Take by mouth. FAMILY HISTORY Problem Relation Age of Onset No Known Problems Mother Diabetes Father No Known Problems Sister No Known Problems Brother Diabetes Maternal Grandmother Cancer Maternal Grandfather Skin No Known Problems Paternal Grandmother Diabetes Paternal Grandfather No Known Problems Brother Social History Tobacco Use Smoking status: Never Smokeless tobacco: Never Substance Use Topics Alcohol use: Never Drug use: Never Review of Systems Constitutional: Negative for chills and fever. HENT: Negative for congestion, ear pain and sore throat. Respiratory: Negative for cough and shortness of breath. Cardiovascular: Negative for chest pain. Gastrointestinal: Negative for diarrhea and vomiting. Genitourinary: Positive for pelvic pain. Objective BP 126/74 Pulse 62 Temp 36.6 ?C (97.9 ?F) Resp 16 Wt 124.2 kg (273 lb 13 oz) LMP 04/09/2024 (Approximate) SpO2 100% BMI 44.87 kg/m? Physical Exam Vitals and nursing note reviewed. Constitutional: General: She is not in acute distress. Appearance: Normal appearance. She is not toxic-appearing. HENT: Nose: Nose normal. Mouth/Throat: Mouth: Mucous membranes are moist. Eyes: Conjunctiva/sclera: Conjunctivae normal. Cardiovascular: Rate and Rhythm: Normal rate and regular rhythm. Pulmonary: Effort: Pulmonary effort is normal. Breath sounds: Normal breath sounds. Abdominal: General: Abdomen is flat. Palpations: Abdomen is soft. Tenderness: There is abdominal tenderness in the right lower quadrant. There is no right CVA tenderness, left CVA tenderness or guarding. Skin: General: Skin is warm and dry. Neurological: Mental Status: She is alert. Assessment and Plan ASSESSMENT/PLAN: 1. Pelvic pain - ICD9: [id number], ICD10: R10.2 - UA DIP, URINE (POC)-trace hematuria -Patient does have significant tenderness over right lower pelvic area/right lower quadrant. At this time, I recommended evaluation in the emergency room for full workup. Urine does reveal trace blood. Discussed possibility of ovarian cyst, ovarian torsion, musculoskeletal, appendicitis, kidney stone. Patient will proceed to the ER for further workup Diagnosis and treatment plan were discussed and questions were answered to the patient's satisfaction. Pt acknowledged understanding of concepts and follow up plan. Specific signs and symptoms that would indicate the need for higher level of care were discussed in detail warranting prompt ER evaluation. Jonathan Whelan, [facility]10-26-2024 NoteHNO ID: [id number] Author: KIARRA GOODWIN APRN.[employer] Service: ? Author Type: Nurse Practitioner Type: Progress Notes Filed: 05/02/2024 09:11 Note Text: This note was created using [email or web address]. Subjective Skye Briscoe is a 29 year old female. 29 year female with PMH presents for illness. Acute onset one week ago + cough Goes between productive and non productive +chills +nasal congestion +ear pressure +sore throat Denies fever Denies dyspnea Denies CP Son here for similar +exposure to pneumonia Denies tobacco usage The history is provided by the patient. 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 Cough This is a new problem. The current episode started more than 1 week ago. The problem occurs constantly. The problem has been gradually worsening. Cough characteristics: productive and non productive. There has been no fever. Associated symptoms include ear congestion, ear pain, rhinorrhea, sore throat and wheezing. Pertinent negatives include no chest pain, no chills, no sweats, no weight loss, no headaches, no myalgias, no shortness of breath and no eye redness. She has tried nothing for the symptoms. The treatment provided no relief. She is not a smoker. Her past medical history does not include bronchitis, pneumonia, bronchiectasis, COPD, emphysema or asthma. PAST MEDICAL HISTORY Diagnosis Date Finger fracture Kidney infection PAST SURGICAL HISTORY Procedure Laterality Date NONE ALLERGIES Eye Drops [Tetrahydrozoline] MEDICATIONS levothyroxine (SYNTHROID) 100 mcg tablet Take 1 tablet by mouth every afternoon. PNV no.95/ferrous fum/folic ac ( ORAL) Take by mouth. azithromycin (ZITHROMAX Z-IRVIN) 250 mg tablet Take 2 tablets day one, then, 1 tablet daily until gone. benzonatate (TESSALON PERLES) 100 mg capsule Take 2 capsules by mouth three times a day as needed for cough. norethindrone (AYGESTIN) 5 mg tablet FAMILY HISTORY Problem Relation Age of Onset No Known Problems Mother Diabetes Father No Known Problems Sister No Known Problems Brother Diabetes Maternal Grandmother Cancer Maternal Grandfather Skin No Known Problems Paternal Grandmother Diabetes Paternal Grandfather No Known Problems Brother Social History Tobacco Use Smoking status: Never Smokeless tobacco: Never Substance Use Topics Alcohol use: Never Drug use: Never Review of Systems Constitutional: Positive for fatigue. Negative for chills and weight loss. HENT: Positive for congestion, ear pain, rhinorrhea and sore throat. Eyes: Negative for redness. Respiratory: Positive for cough and wheezing. Negative for shortness of breath. Cardiovascular: Negative for chest pain. Gastrointestinal: Negative for abdominal pain, diarrhea, nausea and vomiting. Musculoskeletal: Negative for myalgias. Skin: Negative for color change, pallor, rash and wound. Allergic/Immunologic: Negative for environmental allergies, food allergies and immunocompromised state. Neurological: Negative for headaches. Hematological: Negative for adenopathy. Does not bruise/bleed easily. Psychiatric/Behavioral: Negative for agitation and behavioral problems. Objective BP 128/78 Pulse 72 Temp 37 ?C (98.6 ?F) Resp 22 Wt 121 kg (266 lb 12.1 oz) LMP 04/09/2024 (Approximate) SpO2 98% BMI 43.72 kg/m? Physical Exam Vitals and nursing note reviewed. Constitutional: General: She is not in acute distress. Appearance: Normal appearance. She is normal weight. She is not ill-appearing, toxic-appearing or diaphoretic. HENT: Head: Normocephalic and atraumatic. Right Ear: Ear canal and external ear normal. Left Ear: Ear canal and external ear normal. Ears: Comments: Left TM erythematous and bulging Nose: Rhinorrhea present. No congestion. Mouth/Throat: Mouth: Mucous membranes are moist. Pharynx: Posterior oropharyngeal erythema present. No oropharyngeal exudate. Eyes: General: Right eye: No discharge. Left eye: No discharge. Extraocular Movements: Extraocular movements intact. Conjunctiva/sclera: Conjunctivae normal. Pupils: Pupils are equal, round, and reactive to light. Cardiovascular: Rate and Rhythm: Normal rate and regular rhythm. Pulses: Normal pulses. Heart sounds: Normal heart sounds. No murmur heard. No friction rub. Pulmonary: Effort: Pulmonary effort is normal. No respiratory distress. Breath sounds: No stridor. Rhonchi present. No wheezing or rales. Chest: Chest wall: No tenderness. Abdominal: General: Abdomen is flat. There is no distension. Palpations: Abdomen is soft. There is no mass. Tenderness: There is no abdominal tenderness. There is no right CVA tenderness, left CVA tenderness, guarding or rebound. Hernia: No hernia is present. Musculoskeletal: General: No swelling, tenderness, deformity or signs of injury. Normal range of motion. Cervical back: Normal range of motion and neck supple. No rigidity. Right lower l (more content not included)...[facility]10-26-2024 History of Present illness Narrative* Kiarra Goodwin APRN.[facility] - 05/02/2024 8:57 AM EDT This note was created using [email or web address]. Subjective Skye Briscoe is a 29 year old female. 29 year female with PMH presents for illness. Acute onset one week ago + cough Goes between productive and non productive +chills +nasal congestion +ear pressure +sore throat Denies fever Denies dyspnea Denies CP Son here for similar +exposure to pneumonia Denies tobacco usage The history is provided by the patient. 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 Cough This is a new problem. The current episode started more than 1 week ago. The problem occurs constantly. The problem has been gradually worsening. Cough characteristics: productive and non productive.There has been no fever. Associated symptoms include ear congestion, ear pain, rhinorrhea, sore throat and wheezing. Pertinent negatives include no chest pain, no chills, no sweats, no weight loss, no headaches, no myalgias, no shortness of breath and no eye redness. She has tried nothing for the symptoms. The treatment provided no relief. She is not a smoker. Her past medical history does not include bronchitis, pneumonia, bronchiectasis, COPD, emphysema or asthma. PAST MEDICAL HISTORY Diagnosis Date Finger fracture Kidney infection PAST SURGICAL HISTORY Procedure Laterality Date NONE ALLERGIES Eye Drops [Tetrahydrozoline] MEDICATIONS levothyroxine (SYNTHROID) 100 mcg tablet Take 1 tablet by mouth every afternoon. PNV no.95/ferrous fum/folic ac ( ORAL) Take by mouth. azithromycin (ZITHROMAX Z-IRVIN) 250 mg tablet Take 2 tablets day one, then, 1 tablet daily until gone. benzonatate (TESSALON PERLES) 100 mg capsule Take 2 capsules by mouth three times a day as needed for cough. norethindrone (AYGESTIN) 5 mg tablet FAMILY HISTORY Problem Relation Age of Onset No Known Problems Mother Diabetes Father No Known Problems Sister No Known Problems Brother Diabetes Maternal Grandmother Cancer Maternal Grandfather Skin No Known Problems Paternal Grandmother Diabetes Paternal Grandfather No Known Problems Brother Social History Tobacco Use Smoking status: Never Smokeless tobacco: Never Substance Use Topics Alcohol use: Never Drug use: Never Review of Systems Constitutional: Positive for fatigue. Negative for chills and weight loss. HENT: Positive for congestion, ear pain, rhinorrhea and sore throat. Eyes: Negative for redness. Respiratory: Positive for cough and wheezing. Negative for shortness of breath. Cardiovascular: Negative for chest pain. Gastrointestinal: Negative for abdominal pain, diarrhea, nausea and vomiting. Musculoskeletal: Negative for myalgias. Skin: Negative for color change, pallor, rash and wound. Allergic/Immunologic: Negative for environmental allergies, food allergies and immunocompromised state. Neurological: Negative for headaches. Hematological: Negative for adenopathy. Does not bruise/bleed easily. Psychiatric/Behavioral: Negative for agitation and behavioral problems. Objective BP 128/78 Pulse 72 Temp 37 C (98.6 F) Resp 22 Wt 121 kg (266 lb 12.1 oz) LMP 04/09/2024 (Approximate) SpO2 98% BMI 43.72 kg/m Physical Exam Vitals and nursing note reviewed. Constitutional: General: She is not in acute distress. Appearance: Normal appearance. She is normal weight. She is not ill-appearing, toxic-appearing or diaphoretic. HENT: Head: Normocephalic and atraumatic. Right Ear: Ear canal and external ear normal. Left Ear: Ear canal and external ear normal. Ears: Comments: Left TM erythematous and bulging Nose: Rhinorrhea present. No congestion. Mouth/Throat: Mouth: Mucous membranes are moist. Pharynx: Posterior oropharyngeal erythema present. No oropharyngeal exudate. Eyes: General: Right eye: No discharge. Left eye: No discharge. Extraocular Movements: Extraocular movements intact. Conjunctiva/sclera: Conjunctivae normal. Pupils: Pupils are equal, round, and reactive to light. Cardiovascular: Rate and Rhythm: Normal rate and regular rhythm. Pulses: Normal pulses. Heart sounds: Normal heart sounds. No murmur heard. No friction rub. Pulmonary: Effort: Pulmonary effort is normal. No respiratory distress. Breath sounds: No stridor. Rhonchi present. No wheezing or rales. Chest: Chest wall: No tenderness. Abdominal: General: Abdomen is flat. There is no distension. Palpations: Abdomen is soft. There is no mass. Tenderness: There is no abdominal tenderness. There is no right CVA tenderness, left CVA tenderness, guarding or rebound. Hernia: No hernia is present. Musculoskeletal: General: No swelling, tenderness, deformity or signs of injury. Normal range of motion. Cervical back: Normal range of motion and neck supple. No rigidity. Right lower leg: No edema. Left lower leg: No edema. Lymphadenopathy: Cervical: Cervical adenopathy present. Skin: General: Skin is warm and dry. Capillary Refill: Capillary refill takes less than 2 seconds. Coloration: Skin is not jaundiced or pale. Findings: No bruising, erythema, lesion or rash. Neurological: General: No focal deficit present. Mental Status: She is alert and oriented to person, place, and time. Cranial Nerves: No cranial nerve deficit. Sensory: No sensory deficit. Motor: No weakness. Coordination: Coordination normal. Gait: Gait normal. Psychiatric: Mood and Affect: Mood normal. Behavior: Behavior normal. Thought Content: Thought content normal. Judgment: Judgment normal. Assessment and Plan ASSESSMENT/PLAN: 1. Acute otitis media, left - ICD9: 382.9, ICD10: H66.92 (primary diagnosis) - Will begin treatment with as per antibiotic as written, see orders Zithromax chosen as she is concerned for pneumonia with exposure (Defers xray) - The patient should also be given OTC cough and cold meds as needed, warm salt water gargles, throat lozenges and/or OTC throat spray as needed, and for the first 5-7 days of treatment. - Supportive care with plenty of fluids, rest, and analgesia prn. - Follow up in 3-5 days if symptoms persist or worsen. 2. URI, acute - ICD9: 465.9, ICD10: J06.9 - Symptomatic treatment with prn analgesia - Supportive care with fluids and rest - The patient may also use OTC cough and cold meds as needed, warm salt water gargles, throat lozenges and/or OTC throat spray as needed, and nasal saline gtts and suction prn. - Follow up in 3-5 days if symptoms persist or sooner if worsening of symptoms Kiarra Goodwin APRN.[employer] documented in this encounterPrem[facility]09-[facility]24 NoteHNO ID: [id number] Author: JONATHAN WHELAN PA Service: ? Author Type: Physician Ex[employer] E[employer] Automotive Technician Type: Progress Notes Filed: 03/17/2024 15:33 Note Text: This note was created using [email or web address]. Subjective Skye Briscoe is a 29 year old female. HPI 29-year-old female presents for left ear pain, pressure, swollen lymph node behind the left ear. Patient states she has had left ear pain and pressure for a couple of days. She has had a little bit of sinus congestion recently which she attributed to allergies. States she noticed that she had a swollen lump behind her left ear yesterday. It is slightly painful to touch. She has not had any fevers, cough, sore throat, difficulty swallowing or breathing. No other complaint. Review of Systems Constitutional: Negative for chills and fever. HENT: Positive for ear pain. Negative for congestion and sore throat. Respiratory: Negative for cough and shortness of breath. Cardiovascular: Negative for chest pain. Gastrointestinal: Negative for diarrhea and vomiting. Objective BP 126/84 Pulse 76 Temp 36.9 ?C (98.5 ?F) Resp 18 Wt 121 kg (266 lb 12.1 oz) LMP 03/10/2024 (Exact Date) SpO2 97% BMI 43.72 kg/m? Physical Exam Vitals and nursing note reviewed. Constitutional: General: She is not in acute distress. Appearance: Normal appearance. She is not toxic-appearing. HENT: Left Ear: A middle ear effusion is present. Tympanic membrane is erythematous. Nose: Nose normal. Mouth/Throat: Mouth: Mucous membranes are moist. Eyes: Conjunctiva/sclera: Conjunctivae normal. Cardiovascular: Rate and Rhythm: Normal rate and regular rhythm. Pulmonary: Effort: Pulmonary effort is normal. Breath sounds: Normal breath sounds. Lymphadenopathy: Head: Left side of head: Posterior auricular adenopathy present. Skin: General: Skin is warm and dry. Neurological: Mental Status: She is alert. Assessment and Plan ASSESSMENT/PLAN: 1. Acute otitis media, left - ICD9: 382.9, ICD10: H66.92 (primary diagnosis) - Will begin treatment with Amoxicillin for 7 days - Supportive care with plenty of fluids, rest, and analgesia prn. 2. Lymphadenopathy, postauricular - ICD9: 785.6, ICD10: R59.0 -Suspect possibly due to ear infection. -Treating as above. -May use Tylenol/Motrin as needed for pain. -If no improvement in 1 to 2 weeks, close follow-up with PCP. Patient agreeable. Diagnosis and treatment plan were discussed and questions were answered to the patient's satisfaction. Pt acknowledged understanding of concepts and follow up plan. Specific signs and symptoms that would indicate the need for higher level of care were discussed in detail warranting prompt ER evaluation. Jonathan Whelan [facility]09-10-2024 History of Present illness Narrative* Jonathan Whelan PA - 03/17/2024 3:30 PM EDT This note was created using NoteWriter. Subjective Skye Briscoe is a 29 year old female. HPI 29-year-old female presents for left ear pain, pressure, swollen lymph node behind the left ear. Patient states she has had left ear pain and pressure for a couple of days. She has had a little bit of sinus congestion recently which she attributed to allergies. States she noticed that she had aswollen lump behind her left ear yesterday. It is slightly painful to touch. She has not had any fev ers, cough, sore throat, difficulty swallowing or breathing. No other complaint. Review of Systems Constitutional: Negative for chills and fever. HENT: Positive for ear pain. Negative for congestion and sore throat. Respiratory: Negative for cough and shortness of breath. Cardiovascular: Negative for chest pain. Gastrointestinal: Negative for diarrhea and vomiting. Objective BP 126/84 Pulse 76 Temp 36.9 C (98.5 F) Resp 18 Wt 121 kg (266 lb 12.1 oz) LMP 03/10/2024(Exact Date) SpO2 97% BMI 43.72 kg/m Physical Exam Vitals and nursing note reviewed. Constitutional: General: She is not in acute distress. Appearance: Normal appearance. She is not toxic-appearing. HENT: Left Ear: A middle ear effusion is present. Tympanic membrane is erythematous. Nose: Nose normal. Mouth/Throat: Mouth: Mucous membranes are moist. Eyes: Conjunctiva/sclera: Conjunctivae normal. Cardiovascular: Rate and Rhythm: Normal rate and regular rhythm. Pulmonary: Effort: Pulmonary effort is normal. Breath sounds: Normal breath sounds. Lymphadenopathy: Head: Left side of head: Posterior auricular adenopathy present. Skin: General: Skin is warm and dry. Neurological: Mental Status: She is alert. Assessment and Plan ASSESSMENT/PLAN: 1. Acute otitis media, left - ICD9: 382.9, ICD10: H66.92 (primary diagnosis) - Will begin treatment with Amoxicillin for 7 days - Supportive care with plenty of fluids, rest, and analgesia prn. 2. Lymphadenopathy, postauricular - ICD9: 785.6, ICD10: R59.0 -Suspect possibly due to ear infection. -Treating as above. -May use Tylenol/Motrin as needed for pain. -If no improvement in 1 to 2 weeks, close follow-up with PCP. Patient agreeable. Diagnosis and treatment plan were discussed and questions were answered to the patient's satisfaction. Pt acknowledged understanding of concepts and follow up plan. Specific signs and symptoms that would indicate the need for higher level of care were discussed in detail warranting prompt ER evaluation. SARAH Cuellar documented in this encounterPrem[facility] Telephone encounter Note * Telephone Encounter - Mable Ortez RN - 12/12/2023 8:13 AM EDT Pt called in and notified of results and recommendations. Pt verbalizes understanding. [facility]06-06[facility] Miscellaneous Notes* Telephone Encounter - Mable Ortez RN - 12/12/2023 8:13 AM EDT Pt called in and notified of results and recommendations. Pt verbalizes understanding. * Telephone Encounter - Gregorio Ayala APRN.CNP - 12/12/2023 7:15 AM EDT Please inform patient that monotest was negative. With persistent sore throat I do recommend patient follow-up with PCP or ENT for reevaluation. Gregorio Ayala APRN.CNP documented in this encounterPrem[facility]06-06-2024 Telephone encounter Note * Telephone Encounter - Gregorio Ayala APRN.CNP - 12/12/2023 7:15 AM EDT Please inform patient that monotest was negative. With persistent sore throat I do recommend patient follow-up with PCP or ENT for reevaluation. Gregorio Ayala APRN.CNP [facility] Work Phone: [phone]) 233-525006-05-2024 History of Present illness Narrative* Gregorio Ayala APRN.CNP - 12/11/2023 1:17 PM EDT Subjective HPI Nontoxic-appearing female presents urgent care chief complaint pharyngitis. Duration of symptoms week and a half. Associated symptoms sore throat. Initially was seen here on 01 December. Strep test was negative. At that time did have some rhinorrhea. Presents today with most bothersome symptom fatigue and pharyngitis. No OTC medications today. Did use them in the past that were some somewhat successful. No difficulty swallowing his secretion decreased range of motion of neck or trismus. Denies any fever body aches chills productive cough chest pain shortness of breath pleuritic pain hemoptysis nausea vomiting abdominal pain change in bowel or bladder habits. Past medical history prescription medication use and allergies reviewed. .Patient presents with: Sore Throat: ST x 1.5 weeks PAST MEDICAL HISTORY Diagnosis Date Finger fracture Kidney infection PAST SURGICAL HISTORY Procedure Laterality Date NONE ALLERGIES Patient has no known allergies. MEDICATIONS norethindrone (AYGESTIN) 5 mg tablet TAKE 1 TABLET BY MOUTH THREE TIMES DAILY UNTIL BLEEDING STOPS FOR 24 HOURS THEN TAKE 1 TABLET TWICE DAILY TO FINISH RX. (Patient not taking: Reported on 12/11/2023) azithromycin (ZITHROMAX) 250 mg tablet TAKE 2 TABLETS BY MOUTH ON DAY 1, AND THEN TAKE 1 TABLET BY MOUTH ONCE A DAY ON DAY 2 THROUGH DAY 5 (Patient not taking: Reported on 11/22/2022) PNV no.95/ferrous fum/folic ac ( ORAL) Take by mouth. (Patient not taking: Reported on 11/23/2023) FAMILY HISTORY Problem Relation Age of Onset No Known Problems Mother Diabetes Father No Known Problems Sister No Known Problems Brother Diabetes Maternal Grandmother Cancer Maternal Grandfather Skin No Known Problems Paternal Grandmother Diabetes Paternal Grandfather No Known Problems Brother Social History Tobacco Use Smoking status: Never Smokeless tobacco: Never Substance Use Topics Alcohol use: Never Drug use: Never BP 118/76 Pulse 86 Temp 37.3 C (99.1 F) (Tympanic) Resp 18 Wt 126.8 kg (279 lb 8.7 oz) LMP 10/31/2022 SpO2 97% BMI 45.81 kg/m Review of Systems Constitutional: Negative for chills, fever and malaise/fatigue. HENT: Positive for sore throat. Negative for congestion, ear discharge, ear pain and sinus pain. Eyes: Negative for blurred vision, pain, discharge and redness. Respiratory: Negative for cough, hemoptysis, sputum production, shortness of breath, wheezing and stridor. Cardiovascular: Negative for chest pain. Gastrointestinal: Negative for abdominal pain, diarrhea, nausea and vomiting. Musculoskeletal: Negative for myalgias. Skin: Negative for itching and rash. Neurological: Negative for dizziness and headaches. Objective Physical Exam Constitutional: General: She is not in acute distress. Appearance: She is not diaphoretic. HENT: Head: Normocephalic. Jaw: No trismus, tenderness, swelling or pain on movement. Right Ear: Tympanic membrane, ear canal and external ear normal. Left Ear: Tympanic membrane, ear canal and external ear normal. Mouth/Throat: Mouth: Mucous membranes are moist. Pharynx: Oropharynx is clear. Uvula midline. Posterior oropharyngeal erythema present. No pharyngeal swelling, oropharyngeal exudate or uvula swelling. Eyes: Conjunctiva/sclera: Conjunctivae normal. Pupils: Pupils are equal, round, and reactive to light. Cardiovascular: Rate and Rhythm: Normal rate and regular rhythm. Heart sounds: Normal heart sounds. Pulmonary: Effort: Pulmonary effort is normal. No tachypnea, accessory muscle usage or respiratory distress. Breath sounds: Normal breath sounds. No stridor. No wheezing, rhonchi or rales. Abdominal: General: There is no distension. Palpations: Abdomen is soft. Tenderness: There is no abdominal tenderness. There is no guarding or rebound. Musculoskeletal: Cervical back: Normal range of motion and neck supple. No edema, erythema, rigidity or tenderness. No pain with movement. Normal range of motion. Lymphadenopathy: Cervical: Cervical adenopathy present. Skin: General: Skin is warm and dry. Neurological: Mental Status: She is alert and oriented to person, place, and time. ASSESSMENT/PLAN: 1. Pharyngitis, unspecified etiology - ICD9: 462, ICD10: J02.9 - MONOTEST, INFECTIOUS MONO Previous strep test was negative. No evidence of bacterial infection on today's exam. Will test formono. If monotest is negative persistent pharyngitis follow- up with ENT. Patient was educated on supportive therapies. Patient will follow up with primary care provider as needed. Patient was instructed to immediately proceed to emergency room for any new, worsening, or symptoms lasting longer thananticipated. The patient's clinical presentation is otherwise unremarkable at this time. Based on exam and clinical finding, the patient is stable for discharge. Plan of care was discussed with patient. Patient verbalizes understanding and agrees to plan of care. This note was generated using [employer] software. It may contain errors in wording, punctuation, or spelling. Gregorio Ayala APRN.[employer] documented in this encounterPrem[facility]05-27-2024 History of Present illness Narrative* Tiffany Grover PA-C - 12/02/2023 8:29 AM EDT This note was created using [employer]. Subjective Skye Briscoe is a 28 year old female. HPI Patient presents with a chief complaint of sore throat since last night. Her right ear is botheringher as well. She was just on amoxicillin for an ear infection. She has had some cough. No chest pain or shortness of breath. No fever. No vomiting or diarrhea. The sore throat did keep her up last night. She denies sick contacts. She does have some seasonal allergies and usually uses Flonase for this, has not had to use this recently. Review of Systems Constitutional: Negative. HENT: Positive for congestion, ear pain and sore throat. Negative for sinus pressure and sinus pain. Respiratory: Positive for cough. Negative for shortness of breath and wheezing. Cardiovascular: Negative. Gastrointestinal: Negative. Genitourinary: Negative. Musculoskeletal: Negative. All other systems reviewed and are negative. PAST MEDICAL HISTORY Diagnosis Date Finger fracture Kidney infection Current Outpatient Medications Medication Sig Dispense Refill norethindrone (AYGESTIN) 5 mg tablet TAKE 1 TABLET BY MOUTH THREE TIMES DAILY UNTIL BLEEDING STOPS FOR 24 HOURS THEN TAKE 1 TABLET TWICE DAILY TO FINISH RX. azithromycin (ZITHROMAX) 250 mg tablet TAKE 2 TABLETS BY MOUTH ON DAY 1, AND THEN TAKE 1 TABLET BY MOUTH ONCE A DAY ON DAY 2 THROUGH DAY 5 (Patient not taking: Reported on 11/22/2022) PNV no.95/ferrous fum/folic ac ( ORAL) Take by mouth. (Patient not taking: Reported on 11/23/2023) No current facility-administered medications for this visit. PAST SURGICAL HISTORY Procedure Laterality Date NONE FAMILY HISTORY Problem Relation Age of Onset No Known Problems Mother Diabetes Father No Known Problems Sister No Known Problems Brother Diabetes Maternal Grandmother Cancer Maternal Grandfather Skin No Known Problems Paternal Grandmother Diabetes Paternal Grandfather No Known Problems Brother Social History Tobacco Use Smoking status: Never Smokeless tobacco: Never Substance Use Topics Alcohol use: Never Drug use: Never Objective BP 120/86 Pulse 65 Temp 36.8 C (98.3 F) Resp 21 Wt 125.7 kg (277 lb 1.9 oz) LMP 10/31/2022 SpO2 96% BMI 45.41 kg/m Physical Exam Vitals reviewed. Constitutional: Appearance: Normal appearance. HENT: Head: Normocephalic and atraumatic. Right Ear: Tympanic membrane, ear canal and external ear normal. Left Ear: Tympanic membrane, ear canal and external ear normal. Nose: Congestion present. Mouth/Throat: Mouth: Mucous membranes are moist. Pharynx: Posterior oropharyngeal erythema present. No pharyngeal swelling or oropharyngeal exudate. Tonsils: No tonsillar exudate or tonsillar abscesses. Cardiovascular: Rate and Rhythm: Normal rate and regular rhythm. Heart sounds: Normal heart sounds. Pulmonary: Effort: Pulmonary effort is normal. Breath sounds: Normal breath sounds. Musculoskeletal: Cervical back: Neck supple. Lymphadenopathy: Cervical: No cervical adenopathy. Skin: General: Skin is warm and dry. Neurological: General: No focal deficit present. Mental Status: She is alert and oriented to person, place, and time. Assessment and Plan ASSESSMENT/PLAN: 1. Acute URI - ICD9: 465.9, ICD10: J06.9 - Discussed viral etiology and rationale for treatment. - Group A strep molecular testing negative - Symptomatic treatment with prn analgesia - Supportive care with fluids and rest - The patient may also use OTC cough and cold meds as needed. - Follow up in 3-5 days if symptoms persist or sooner if worsening of symptoms - STREP A MOLECULAR (POC) Tiffany Grover PA-C documented in this encounterPrem[facility]05-18-2024 History of Present illness Narrative* Vonda Perez APRN.[employer] - 11/23/2023 8:26 AM EDT CC: Patient presents with: Nasal Congestion: drainage x 3 days, right ear pain x last night HPI: Skye Briscoe is a 28 year old female who presents to the office with complaint of head congestion, cough, nonproductive, sinus symptoms, and ear symptoms for a few days. Symptoms are worsening Associated symptoms includes ear pain. Denies fever, nausea, vomiting , and diarrhea. Treatments tried include nothing so far. with no relief of symptoms. Sick contacts: unknown. History of asthma, frequent episodes of bronchitis, chronic bronchitis, bronchiectasis or COPD: No Smoker: No Seasonal/environmental allergies: No The ROS is otherwise negative. The patient's pmh, medications, allergies, and past visits are reviewed. PHYSICAL EXAM: BP 132/80 Pulse 118 Temp 36.7 C (98 F) Resp 20 Wt 127.4 kg (280 lb 13.9 oz) LMP 10/31/2022 SpO2 99% BMI 46.03 kg/m General appearance: alert, cooperative, pleasant, in no acute distress Head: Normocephalic Eyes: EOM's intact, conjunctiva pink and moist, no icterus, sclera white, non-injected Ears: Right ear: External ear/canal- Normal, TM - erythematous, bulging. Left ear: External ear/canal- Normal, TM - erythematous Oropharynx:moist without lesions, No erythema, exudates or tonsillar hypertrophy. Heart: Negative. RRR without obvious murmur, gallop, or rubs. No ectopy. Lungs: clear to auscultation, without rales or wheeze, good air exchange PAST MEDICAL HISTORY Diagnosis Date Finger fracture Kidney infection PAST SURGICAL HISTORY Procedure Laterality Date NONE ALLERGIES Patient has no known allergies. MEDICATIONS azithromycin (ZITHROMAX) 250 mg tablet TAKE 2 TABLETS BY MOUTH ON DAY 1, AND THEN TAKE 1 TABLET BY MOUTH ONCE A DAY ON DAY 2 THROUGH DAY 5 (Patient not taking: Reported on 11/22/2022) PNV no.95/ferrous fum/folic ac ( ORAL) Take by mouth. (Patient not taking: Reported on 11/23/2023) FAMILY HISTORY Problem Relation Age of Onset No Known Problems Mother Diabetes Father No Known Problems Sister No Known Problems Brother Diabetes Maternal Grandmother Cancer Maternal Grandfather Skin No Known Problems Paternal Grandmother Diabetes Paternal Grandfather No Known Problems Brother Social History Tobacco Use Smoking status: Never Smokeless tobacco: Never Substance Use Topics Alcohol use: Never Drug use: Never ASSESSMENT/PLAN: 1. Acute otitis media, right - ICD9: 382.9, ICD10: H66.91 Amoxicillin Prescription instructions reviewed with patient as applicable. Potential red flag symptoms discussed with the patient. Reviewed appropriate action plan to take if red flag symptoms occur. Patient agreeable to treatment plan. Vonda Perez APRN.MARY documented in this encounterPrem[facility]02-11-2024 History of Present illness Narrative* Martha Hansen APRN.MARY - 08/18/2023 10:31 AM EST Subjective Ear Pain Associated symptoms include congestion, coughing, myalgias and a sore throat. Pertinent negatives include no abdominal pain, chest pain, chills, fever, nausea or vomiting. Skye Briscoe is a 28 year old female who presents with bilateral ear pain since last night. She has had a cough, nasal congestion and drainage for the past week. Has been taking ibuprofen and dayquil at home. No fever. Rates ear pain 6/10 when lying down- a little better when standing/walking. Review of Systems Constitutional: Positive for malaise/fatigue. Negative for chills and fever. HENT: Positive for congestion, ear pain and sore throat. Respiratory: Positive for cough. Cardiovascular: Negative for chest pain. Gastrointestinal: Negative for abdominal pain, diarrhea, nausea and vomiting. Musculoskeletal: Positive for myalgias. BP 121/67 Pulse 92 Temp 37.5 C (99.5 F) Resp 18 Wt 125.6 kg (277 lb) LMP 10/31/2022 SpO2 97% BMI 45.39 kg/m PAST MEDICAL HISTORY Diagnosis Date Finger fracture Kidney infection PAST SURGICAL HISTORY Procedure Laterality Date NONE ALLERGIES Patient has no known allergies. MEDICATIONS PNV no.95/ferrous fum/folic ac ( ORAL) Take by mouth. amoxicillin (AMOXIL) 875 mg tablet Take 1 tablet by mouth two times a day for 7 days. azithromycin (ZITHROMAX) 250 mg tablet TAKE 2 TABLETS BY MOUTH ON DAY 1, AND THEN TAKE 1 TABLET BY MOUTH ONCE A DAY ON DAY 2 THROUGH DAY 5 (Patient not taking: Reported on 11/22/2022) FAMILY HISTORY Problem Relation Age of Onset No Known Problems Mother Diabetes Father No Known Problems Sister No Known Problems Brother Diabetes Maternal Grandmother Cancer Maternal Grandfather Skin No Known Problems Paternal Grandmother Diabetes Paternal Grandfather No Known Problems Brother Social History Tobacco Use Smoking status: Never Smokeless tobacco: Never Substance Use Topics Alcohol use: Never Drug use: Never Objective Physical Exam Vitals and nursing note reviewed. Constitutional: General: She is not in acute distress. Appearance: Normal appearance. She is not ill-appearing. HENT: Right Ear: Ear canal and external ear normal. A middle ear effusion is present. Tympanic membrane is injected. Left Ear: Ear canal and external ear normal. A middle ear effusion is present. Tympanic membrane isinjected. Nose: Nose normal. Mouth/Throat: Pharynx: Uvula midline. No oropharyngeal exudate or posterior oropharyngeal erythema. Cardiovascular: Rate and Rhythm: Normal rate and regular rhythm. Heart sounds: Normal heart sounds. Pulmonary: Effort: Pulmonary effort is normal. No respiratory distress. Breath sounds: Normal breath sounds. No wheezing or rales. Musculoskeletal: Cervical back: Neck supple. Lymphadenopathy: Cervical: No cervical adenopathy. Skin: General: Skin is warm and dry. Findings: No erythema or rash. Neurological: Mental Status: She is alert. ASSESSMENT/PLAN: 1. Other acute nonsuppurative otitis media of both ears, recurrence not specified - ICD9: 381.00, ICD10: H65.193 - Will begin treatment with as per antibiotic as written, see orders - Supportive care with plenty of fluids, rest, and analgesia prn. - AMOXICILLIN 875 MG TABLET - Follow-up with your PCP in 3-5 days if symptoms have not improved or sooner if symptoms worsen - Discussed red flags and need for immediate medical evaluation if any occur. - Discussed supportive care treatment with fluids, rest and analgesia. - Discussed expected course of illness Martha Hansen APRN.MARY documented in this encounterPrem[facility]02-11-2024 Instructions* Patient Instructions* Martha Hansen APRN.CNP - 08/18/2023 10:30 AM EST ASSESSMENT/PLAN: 1. Other acute nonsuppurative otitis media of both ears, recurrence not specified - ICD9: 381.00, ICD10: H65.193 - Will begin treatment with as per antibiotic as written, see orders - Supportive care with plenty of fluids, rest, and analgesia prn. - AMOXICILLIN 875 MG TABLET - Follow-up with your PCP in 3-5 days if symptoms have not improved or sooner if symptoms worsen - Discussed red flags and need for immediate medical evaluation if any occur. - Discussed supportive care treatment with fluids, rest and analgesia. - Discussed expected course of illness Martha Hansen APRN.[employer] OTITIS MEDIA GENERAL INFORMATION: Otitis media is an infection of the middle ear. The middle ear sits behind the eardrum. This infection may be caused by a virus or bacteria and often follows a cold. Children often have repeat ear infections. Otitis media is not contagious. INSTRUCTIONS: 1. An antibiotic has been prescribed. It should be taken exactly as prescribed. Do not stop the medicine even if the symptoms go away. 2. [id number] pain medication may be taken or other pain medication as prescribed by the doctor. 3. Nothing should be placed in the ear unless instructed by your doctor. 4. The patient may return to school/daycare or work when the temperature is normal (98.6 F or 37 C). 5. The patient should not swim while the ear is infected. CONTACT YOUR DOCTOR IF YOU OR YOUR CHILD: 1. Does not feel better within 36 hours. 2. Develops a temperature over 102E F (39E C). 3. Starts vomiting or has diarrhea. 4. Develops drainage from the affected ear. 5. Has any new problem that may be related to the medicine prescribed. RETURN TO THE ED IF: 1. You or your child has a severe headache or pain around the ear. 2. You or your child notice swelling around the ear. 3. You or your child has a seizure (convulsion), twitching of the facial muscles, or passes out. 4. You or your child is dizzy, has a stiff neck, or cannot walk or talk normally. 5. Your child becomes more irritable or listless (not interested in his or her surroundings, does not get soothed by you holding him or her). documented in this encounterPrem[facility]04-23-2023 Instructions* Patient Instructions* Jennie Pastrana APRN.CNP - 10/28/2022 8:48 AM EDT Follow-up with your primary care provider in 2 to 3 days if no improvement or sooner if worsening documented in this encounterPremier Health [facility]04-23-2023 History of Present illness Narrative* Jennie Pastrana APRN.CNP - 10/28/2022 8:42 AM EDT CC: Patient presents with: Ear Pain: Left ear pain x 1 week HPI Skye Briscoe is a 27 year old female who presents today for left ear pain x 1 week. She was prescribed Amoxicillin Saturday for bilateral otitis media. Right ear symptoms resolved. Left ear is worse now. Associated with muffled hearing, left sided headache and neck pain. Denies drainage from ear, fever, chills, body aches, sore throat, cough, nasal congestion, rhinorrhea. REVIEW OF SYSTEMS See HPI PAST MEDICAL HISTORY Diagnosis Date Finger fracture Kidney infection PAST SURGICAL HISTORY Procedure Laterality Date NONE ALLERGIES Patient has no known allergies. MEDICATIONS PNV no.95/ferrous fum/folic ac ( ORAL) Take by mouth. (Patient not taking: Reported on 10/28/2022) FAMILY HISTORY Problem Relation Age of Onset No Known Problems Mother Diabetes Father No Known Problems Sister No Known Problems Brother Diabetes Maternal Grandmother Cancer Maternal Grandfather Skin No Known Problems Paternal Grandmother Diabetes Paternal Grandfather No Known Problems Brother Social History Tobacco Use Smoking status: Never Smokeless tobacco: Never Substance Use Topics Alcohol use: Never Drug use: Never PHYSICAL EXAM BP 124/90 Pulse 85 Temp 36.8 C (98.3 F) Resp 21 Wt 123.7 kg (272 lb 9.6 oz) LMP 11/22/2020 (Exact Date) SpO2 97% BMI 44.67 kg/m General Appearance: in no acute distress, alert, appears uncomfortable Head: normocephalic, atraumatic Ears: external ears normal to inspection and palpation, canals clear, R TM: normal, L TM: bishnu fluid noted behind TM, erythematous, and bubbles present Neck: supple, no nuchal rigidity. left occipital and posterior cervical adenopathy Oropharynx: lips normal without lesions, tongue midline and normal, soft palate, uvula, and tonsilsnormal ASSESSMENT/PLAN: 1. Acute otitis media, left - ICD9: 382.9, ICD10: H66.92 - Change treatment to Augmentin 875 mg PO BID for 7 days - The patient will also be given prednisone burst x 5 days - Supportive care with plenty of fluids, rest, and analgesia prn. - Follow up in 2-3 days with PCP if symptoms persist or worsen. Prescription instructions reviewed with patient as applicable. Potential red flag symptoms discussed with the patient. Reviewed appropriate action plan to take if red flag symptoms occur. Patient agreeable to treatment plan. Jennie Pastrana APRN.MARY documented in this encounterPremier Health [facility]01-04-2023 NotePap Smear Specimen AdequacyJanuary 2022 4:56pmComment.Satisfactory for evaluation. Endocervical and/or squamous metaplasticcells (endocervical component)are present.[facility] INTER[facility]ACED A#[id number] HospitalComment on above: Satisfactory for evaluation. Endocervical and/or squamous metaplasticcells (endocervical component)are present.Evaluation noteNo assessment information availableWMercy Memorial Hospital Work Phone: Evaluation note* Diagnosis Onset Date Resolution Status Anxiety acute Hypothyroid acute Obesity affecting acute acute Supervision of normal first [facility] Work Phone: Evaluation note* Diagnosis Onset Date Resolution Status Anxiety acute Hypothyroid acute Obesity affecting acute acute Supervision of normal first acute Anxiety acute Hypothyroid acute Obesity affecting acute acute Supervision of normal first acute Anxiety acute Hypothyroid acute Obesity affecting acute acute Supervision of normal first [facility] Work Phone: Evaluation note* Diagnosis Onset Date Resolution Status Anxiety acute Hypothyroid acute Obesity affecting acute acute Supervision of normal first acute Anxiety acute Hypothyroid acute Obesity affecting acute acute Supervision of normal first acute Anxiety acute Hypothyroid acute Obesity affecting acute acute Supervision of normal first acute Obesity affecting acute acute Supervision of normal first acute Monilial intertrigo noneacti ve Anxiety acute Hypothyroid acute Obesity affecting acute acute Supervision of normal first acute [facility] Work Phone: Evaluation note* Diagnosis Onset Date Resolution Status Anxiety acute Hypothyroid acute Obesity affecting acute acute Supervision of normal first acute Anxiety acute Hypothyroid acute Obesity affecting acute acute Supervision of normal first acute Obesity affecting acute acute Supervision of normal first acute Monilial intertrigo noneacti ve Anxiety acute Hypothyroid acute Obesity affecting acute acute Supervision of normal first acute Anxiety acute Hypothyroid acute Obesity affecting acute acute Supervision of normal first acute Decreased movements in third trimester noneactive Anxiety acute Hypothyroid acute Obesity affecting acute acute Supervision of normal first acute [facility] Work Phone: Evaluation note* Diagnosis Onset Date Resolution Status Anxiety acute Hypothyroid acute Obesity affecting acute acute Supervision of normal first acute Obesity affecting acute acute Supervision of normal first acute Monilial intertrigo noneacti ve Anxiety acute Hypothyroid acute Obesity affecting acute acute Supervision of normal first acute Anxiety acute Hypothyroid acute Obesity affecting acute acute Supervision of normal first acute Decreased movements in third trimester noneactive Anxiety acute Hypothyroid acute Obesity affecting acute acute Supervision of normal first acute [facility] Work Phone: Evaluation note* Diagnosis Onset Date Resolution Status Obesity affecting acute acute Supervision of normal first acute Monilial intertrigo noneacti ve Anxiety acute Hypothyroid acute Obesity affecting acute acute Supervision of normal first acute Anxiety acute Hypothyroid acute Obesity affecting acute acute Supervision of normal first acute Decreased movements in third trimester noneactive Anxiety acute Hypothyroid acute Obesity affecting acute acute Supervision of normal first acute Anxiety acute Hypothyroid acute Obesity affecting acute acute Supervision of normal first acute Decreased movements in third trimester resolved Decreased movements in third trimester resolved Anxiety acute Hypothyroid acute Obesity affecting acute acute Supervision of normal first acute Anxiety acute Hypothyroid acute Macrosomia acute Obesity affecting acute acute Supervision of normal first acute [facility] Work Phone: Evaluation note* Diagnosis Onset Date Resolution Status Obesity affecting acute acute Supervision of normal first acute Monilial intertrigo noneacti ve Anxiety acute Hypothyroid acute Obesity affecting acute acute Supervision of normal first acute Anxiety acute Hypothyroid acute Obesity affecting acute acute Supervision of normal first acute Decreased movements in third trimester noneactive Anxiety acute Hypothyroid acute Obesity affecting acute acute Supervision of normal first acute Anxiety acute Hypothyroid acute Obesity affecting acute acute Supervision of normal first acute Decreased movements in third trimester resolved Decreased movements in third trimester resolved Anxiety acute Hypothyroid acute Obesity affecting acute acute Supervision of normal first acute Anxiety acute Hypothyroid acute Macrosomia acute Obesity affecting acute acute Supervision of normal first acute Anxiety acute Gestational diabetes mellitus (GDM) acute Hypothyroid acute Macrosomia acute Obesity affecting acute acute Supervision of normal first acute Anxiety acute Gestational diabetes mellitus (GDM) acute Hypothyroid acute Macrosomia acute Obesity affecting acute acute Supervision of normal first acute [facility] Work Phone: Evaluation note* Diagnosis Onset Date Resolution Status Obesity affecting acute acute Supervision of normal first acute Monilial intertrigo noneacti ve Anxiety acute Hypothyroid acute Obesity affecting acute acute Supervision of normal first acute Anxiety acute Hypothyroid acute Obesity affecting acute acute Supervision of normal first acute Decreased movements in third trimester noneactive Anxiety acute Hypothyroid acute Obesity affecting acute acute Supervision of normal first acute Anxiety acute Hypothyroid acute Obesity affecting acute acute Supervision of normal first acute Decreased movements in third trimester resolved Decreased movements in third trimester resolved Anxiety acute Hypothyroid acute Obesity affecting acute acute Supervision of normal first acute Anxiety acute Hypothyroid acute Macrosomia acute Obesity affecting acute acute Supervision of normal first acute Anxiety acute Gestational diabetes mellitus (GDM) acute Hypothyroid acute Macrosomia acute Obesity affecting acute acute Supervision of normal first acute Anxiety acute Gestational diabetes mellitus (GDM) acute Hypothyroid acute Macrosomia acute Obesity affecting acute acute Supervision of normal first acute Anxiety acute Gestational diabetes mellitus (GDM) acute Hypothyroid acute Macrosomia acute Obesity affecting acute acute Supervision of normal first acute Active labor at term acute Anemia acute Anxiety acute Delivery by section acute Gestational diabetes mellitus (GDM) acute Hypothyroid acute Macrosomia acute Obesity affecting acute acute Supervision of normal first acute [facility] Work Phone: Evaluation note* Diagnosis Onset Date Resolution Status Anxiety acute Hypothyroid acute Decreased movements in third trimester resolved Decreased movements in third trimester resolved Anxiety acute Hypothyroid acute Anxiety acute Hypothyroid acute Anxiety acute Hypothyroid acute Gestational diabetes mellitus (GDM) resolved Anxiety acute Hypothyroid acute Gestational diabetes mellitus (GDM) resolved Anxiety acute Hypothyroid acute Gestational diabetes mellitus (GDM) resolved Anemia acute Anxiety acute Hypothyroid acute Gestational diabetes mellitus (GDM) resolved Care and examination of lactating mother noneactive Anxiety acute History of gestational diabetes acute Status post delivery acute Postop check noneactive History of gestational diabetes acute Status post delivery acute [facility] Work Phone: Evaluation note* Diagnosis Acute otitis media, left- Primary Unspecified otitis media documented in this encounter [facility] note* Diagnosis Other acute nonsuppurative otitis media of both ears, recurrence not specified- Primary documented in this encounter [facility] note* Diagnosis Acute otitis media, right- Primary Unspecified otitis media documented in this encounter [facility] note* Diagnosis Acute URI- Primary Acute upper respiratory infections of unspecified site documented in this encounter [facility] note* Diagnosis Pharyngitis, unspecified etiology- Primary documented in this encounter [facility] note* Diagnosis Acute otitis media, left- Primary Unspecified otitis media Lymphadenopathy, postauricular Enlargement of lymph nodes documented in this encounter [facility] note* Diagnosis Acute otitis media, left- Primary Unspecified otitis media URI, acute Acute upper respiratory infections of unspecified site documented in this encounter [facility] note* Diagnosis Bacterial sinusitis- Primary Unspecified sinusitis (chronic) Missed period Irregular menstrual cycle Other acute nonsuppurative otitis media of both ears, recurrence not specified Fatigue, unspecified type documented in this encounter [facility] note* Diagnosis Right upper quadrant abdominal pain- Primary Abdominal pain, right upper quadrant documented in this encounter [facility] note* Diagnosis Vaginal discharge- Primary Leukorrhea, not specified as infective documented in this encounter [facility] note* Diagnosis URI, acute- Primary Acute upper respiratory infections of unspecified site Sore throat [facility]itis [facility] Additional Instructions Take all of your antibiotics. Zofran as needed for nausea. Tylenol as needed for pain. Follow-up with primary care physician and urology. Return back to the ED if symptoms change or worsen. Such as high fever, inability to eat, worsening abdominal pain, inability to urine. Drink plenty of fluids.[facility] Work Phone: Hospital Discharge instructionsAmbulatory Orders* General Surgery Location: None Selected [facility] Work Phone: Progress note Author Ashley Mullen [facility] Note Date/Time February 26, 2025 1: 47pm [facility] [address], [address] [place] [address] OFFICE VISIT Date of Service: 02/26/25 MR#: [id number] Acct: [id number] Name: SKYE BRISCOE Rep #: [id number] : 1995 Provider: Dr. 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 Is patient in pain?: No Allergies tetracycline Allergy (Mild, Verified 02/26/25 13:15) Hives Medications ?Medication ?Instructions ?Recorded ?Confirmed ?Type multivit-min no.71-iron fum 28 cap PO 02/18/25 Histor y mg-folate no.1 1 mg-dha 300 mg capsule (PNV-[place]) Last Menstrual Period: 08/25/21 Zika: Zika virus screening: Negative : No PFSH PFSH Medical History Seasonal allergies Ovarian cyst Active labor at term Infertility Thyroid disorder Superficial varicosities Macrosomia Obesity affecting Supervision of normal first Anxiety Surgical History Delivery by section Family History Father Diabetes CAD (coronary artery disease) Hypertension Grandfather Kidney disease Paternal Cancer Maternal- skin Parkinsons disease Paternal Mother Cancer skin Social History adopted: No household members: spouse and children housing: house number of children: 1 service: No current occupational status: employed current occupation: [employer] current occupational exposures/hazards: No pets and animals: Yes (avoid litter box) pets and animals: cat(s) and dog(s) history of recent travel: No sexually active: Yes Smoking Status: Never smoker alcohol intake: current alcohol intake frequency: a few times a month details: not while substance use type: does not use well-balanced diet: daily or most days caffeine: Yes Type: carbonated beverages Number of servings: 1 eating out: 1-3 times/week during the past year weight has: decreased > 10 lbs what type of physical activity do you participate in: weight training frequency: 5-6 times per week duration: 15-30 minutes/day armando/amish: Zoroastrianism seatbelt use: always do you feel safe at home: Yes additional social history: Spouse-Melina Johnson History 3 Elective abortions Hx Para 1 Spontaneous abortions 1 Hx # Term Pregnancies Ectopic pregnancies Hx # Pregnancies Multiple births # of living children 1 Past Pregnancies Del. Date Name GA/Weeks Outcome Route Bth Weight Infant Gen Labor Lgth Anesthesia Del Locatn Provider FOB 05/21/22 [place] 38 live - full term 9#6oz Male s angela [facility] Prudence Garcia Ailyn Jigar 08/31/24 6 spontaneous Delivery Date: 05/21/22 Last Updated by: Tiesha Dominguez primary section for macrosomia HPI *EST* NOB ALLA 10/06 *TWINS Details: SKYE BRISCOE is a 29 year old who presents for New OB visit. OB Visit ALLA Calculator Estimated Delivery Date Method Current WG Current Estimate 10/06/25 Ultrasound #2 8w 2d Other Estimates 10/01/25 Ultrasound #1 9w 0d # 2 Comments: HIV: Urine Culture: Sequential Screen: NIPT Screen: Estimated Due Date: 10/06/25 Expected Delivery Route/Plan RLTCS Specific Issue/Plans Covid status: [] Flu vaccine: [] Tdap vaccine: [] Rhogam: [] LARC form signed: [] Problem list reviewed and updated with the most current plan of care details and appropriate orders placed. Relevant counseling for the gestational age provided. Continue routine care and follow up unless otherwise noted in visit notes/problem list details Initial Weight: Not Recorded Date -?-?-?-?-?-?-?-?-?-?-?-?- EGA Weight BP Urine Prot -?-?-?-?-?-?-?-?-?-?-?-?- Glucose FHR FuHt Pres Dilation -?-?-?-?-?-?-?-?-?-?-?-?- Effaced St Visit Note 02/26/25 -?-?-?-?-?-?-?-?-?-?-?-?- 8w 2d 221 lb 136/82 -?-?-?-?-?-?-?-?-?-?-?-?- A 175 -?-?-?-?-?-?-?-?-?-?-?-?- B 175 A -?-?-?-?-?-?-?-?-?-?-?-?- B -?-?-?-?-?-?-?-?-?-?-?-?- A -?-?-?-?-?-?-?-?-?-?-?-?- B A SM- CRl cons wit h each other -?-?-?-?-?-?-?-?-?-?-?-?- B Menstrual History Last Menstrual Period: 08/25/21 Reported LMP: approximate (month known) (December) Normal amount/duration: Yes Frequency in days: 28-30 On hormonal BC at conception: No hCG+: 01/17/25 Antepartum Record Genetic Screening: Congenital Heart Defect: Other, Neural Tube Defect: Other, Hemoglobinopathy Or Carrier: Other, Cystic Fibrosis: Other, Chromosome Abnormality: Other, Steve-Sachs: Other, Hemophilia: Other, Intellectual Disability/Autism: Other, Recurrent Loss/Stillbirth: Other, Other Structural Defect: Other, Other Genetic Disease: Other and Maternal Metabolic Disorder: Other Infection History: Live with someone with TB or Exposed to TB: No, Patient or Partner has history of Genital Herpes: No, Rash or Viral illness since last mentrual period: No, Prior GBS-Infected child: No, History of STD: No, HIV Infection: No, History of Hepatitis: No, Recent travel outside of [place]: No, Concern for hepatitis exposure: No, Varicella immune: Yes (immune -virus) and Covid Vaccinated: No Medical History Medical History: Positive: Diabetes (GDM @ 36 weeks), Thyroid dysfunction (inactive thyroid last ), Seasonal allergies, Drug/latex allergies/reactions (tetracycline), 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), Operations/hospitalizations (See PFSH), Infertility (1st 2.5yrs), Relevant family history (See PFSH) and Other (Obesity) and Negative: Hypertension, Heart disease, Auto-immune disorder, Kidney disease/UTI, Neurologic/epilepsy, Psychiatric, Depression/ depression, Hepatitis/liver disease, Varicosities/phlebitis, Trauma/domestic violence, History of blood transfusions, D (Rh) Sensitized, Pulmonary (e.g.,TB,Asthma), Breast, Anesthetic complications, History of abnormal pap, Uterine anomaly/adeola and Anti-retroviral treatment ACOG First Trimester First Trimester: Desire for , Alcohol, Tobacco Cessation, Illicit/Recreational Drug/Substance Use, Intimate Partner Violence, Barriers to care, Unstable Housing, Communication Barriers, Environmental/Work Hazards, Anticipated Course of Care, Nurtrition and weight gain, Toxoplasmosis Precations, Use of Any medications, Sexual activity, Exercise, Dental Care, Sauna/Hot tub use, Seat Belt use, Childbirth classes/Hospital facilities, Travel, Indications for Ultrasound and Screening for Aneuploidy; Discussed Second Trimester Second Trimester: Signs and Symptoms of Labor, Selecting a care provider, Reproductive Life Planning & Contreception, Care Planning, Depression/Anxiety and Intimate Partner Violence; Discussed Tobacco Cessation Third Trimester Third Trimester: Pain Management Plans, Labor support person(s), Immediate Larc, Movement Monitoring, Signs and Symptoms of Preeclampsia and [employer] Education ROS Const Reports system reviewed and no additional complaints, except as documented, Reports fatigue and Denies fever(s) Eyes Reports system reviewed and no additional complaints, except as documented ENT Reports system reviewed and no additional complaints, except as documented Card Denies chest pain and Denies dyspnea Resp Reports system reviewed and no additional complaints, except as documented, Denies cough and Denies dyspnea GI Denies abdominal pain and Reports nausea Reports system reviewed and no additional complaints, except as documented Musc Reports system reviewed and no additional complaints, except as documented Skin/Breast Reports system reviewed and no additional complaints, except as documented Neuro Yes system reviewed and no additional complaints, except as documented Psych Reports system reviewed and no additional complaints, except as documented Endo Reports system reviewed and no additional complaints, except as documented and Reports fatigue Exam Const General: healthy appearing, comfortable and no acute distress Orientation: alert [facility] Head: normal to inspection, normocephalic and atraumatic Ears: hearing grossly normal bilaterally and external ears normal Nose: external nose normal and nares normal Mouth: oral mucosae normal Teeth and gingiva: dentition normal Eyes General: appearance normal, both eyes and all related structures Neck Neck: normal visual inspection, no lymphadenopathy and supple Thyroid: thyroid normal Chest Chest palpation & inspection: normal inspection of the chest Breast inspection: normal inspection of the breasts and normal inspection of the axillae Breast palpation: normal palpation of the breasts and normal palpation of the axillae Resp Effort & Inspection: normal respiratory effort GI Inspection: normal to inspection Palpation: soft and no hepatosplenomegaly General: bladder normal to palpation External Female Exam: normal external appearance and normal appearance of the urethra Urethra: normal appearance of the urethra Speculum Exam - Vagina: normal appearance of the vagina and normal vaginal discharge Speculum Exam - Cervix: normal appearance of the cervix Bimanual Exam- Vagina & Uterus: normal bimanual exam, bladder normal to palpation, non-tender and other Bimanual Exam- Adnexa, other: non-tender Skin General: no rashes or lesions noted Neuro Motor: muscle tone normal throughout and no movement abnormalities noted Extrem General: normal to inspection and full ROM Supplemental Info ACOG book given and patient encouraged to read about nutrition, exercise, weight gain, and food avoidance in . Coding Level of Care Code OB Routine Diagnoses History of miscarriage, currently O09.299 Supervision of high-risk O09.90 Obesity affecting O99.210 Hx of section Z98.891 History of hypothyroidism Z86.39 History of gestational diabetes mellitus (GDM) in prior , currently O09.299; Z86.32 Twin dichorionic diamniotic placenta O30.049 8 weeks gestation of Z3A.08 Weeks of gestation: 8 weeks Assessment and Plan Assessment and Plan (1) History of miscarriage, currently : Status: Acute (2) Supervision of high-risk : Status: Acute Comment: , ALLA 10/06/25, PC [place], Jigar (3) Obesity affecting : Status: Acute Comment: HgbA1c (4) Hx of section: Status: Acute (5) History of hypothyroidism: Status: Acute Comment: TSH, T4, TSH R AB (6) History of gestational diabetes mellitus (GDM) in prior , currently : Status: Acute (7) Twin dichorionic diamniotic placenta: Status: Acute Comment: per formal [place]. (8) : Status: Acute Qualifiers: Weeks of gestation: 8 weeks Qualified Code(s): Z3A.08 - 8 weeks gestation of Comment: elects NIPT with Gender, decline carrier Orders: Orders CBC W/Diff, Automated 02/18/25 O09.90 - Supervision of high risk , unspecified, unspecified trimester Type & Screen 02/18/25 O09.90 - Supervision of high risk , unspecified, unspecified trimester, Z86.39 - Personal history of other endocrine, nutritional and metabolic disease Rubella IgG 02/18/25 O09.90 - Supervision of high risk , unspecified, unspecified trimester Hepatitis C Antibody 02/18/25 O09.90 - Supervision of high risk , unspecified, unspecified trimester Hepatitis B Surface Antigen 02/18/25 O09.90 - Supervision of high risk , unspecified, unspecified trimester Culture, Urine 02/18/25 O09.90 - Supervision of high risk , unspecified, unspecified trimester Syphilis Antibodies 02/18/25 O09.90 - Supervision of high risk , unspecified, unspecified trimester Chlamydia/GC GERARD aptima 02/18/25 O09.90 - Supervision of high risk , unspecified, unspecified trimester HIV 02/18/25 O09.90 - Supervision of high risk , unspecified, unspecified trimester Hemoglobin A1c 02/18/25 O09.90 - Supervision of high risk , unspecified, unspecified trimester, O99.210 - Obesity complicating , unspecified trimester Free T4 02/18/25 O09.90 - Supervision of high risk , unspecified, unspecified trimester, Z86.39 - Personal history of other endocrine, nutritional and metabolic disease Thyroid Stim Hormone (TSH) 02/18/25 O09.90 - Supervision of high risk , unspecified, unspecified trimester [facility] Misc. 02/18/25 O09.90 - Supervision of high risk , unspecified, unspecified trimester, Z86.39 - Personal history of other endocrine, nutritional and metabolic disease SILVANA 02/18/25 O09.90 - Supervision of high risk , unspecified, unspecified trimester Plan Patient oriented to practice and discussed care expectations and screenings. ACOG book offered to patient. Discussed routine and specially indicated labs if needed- patient consents to testing. See problem list details for plan information. Optional screening including maternal carrier screenings, neural tube defect screening, genetic screening options including quad screen, nuchal translucency, sequential screening, and NIPT screening offered to patient and patient chose: nipt planned 02/26/25 1347 <Electronically signed by Ashley courtney MD> Date _ Ashley Mullen MD Cosigner Signature: Date (if applicable) CC: ~ [facility] Work Phone: Reason for referral (narrative)No reason for referral information [facility]er[facility] Work Phone: Chief Complaint and Reason for Visit Chief Complaint Chief Complaint Amb Documentation NOB LMP 08/25/21 Reason for Visit Anxiety Hypothyroid Obesity affecting Supervision of normal first Chief Complaint Amb Documentation NOB LMP 08/25/21 15 WK OB 19 WK OB ANATOMY Reason for Visit Anxiety Hypothyroid Obesity affecting Supervision of normal first Anxiety Hypothyroid Obesity affecting Supervision of normal first Anxiety Hypothyroid Obesity affecting Supervision of normal first Chief Complaint NOB LMP 08/25/21 15 WK OB 19 WK OB ANATOMY 23 WK OB DRAW @ 1:30PM 27 WK OB Reason for Visit Anxiety Hypothyroid Obesity affecting Supervision of normal first Anxiety Hypothyroid Obesity affecting Supervision of normal first Anxiety Hypothyroid Obesity affecting Supervision of normal first Obesity affecting Supervision of normal first Monilial intertrigo Anxiety Hypothyroid Obesity affecting Supervision of normal first Chief Complaint 15 WK OB 19 WK OB ANATOMY 23 WK OB DRAW @ 1:30PM 27 WK OB NST 29 wk ob R/O LABOR Reason for Visit Anxiety Hypothyroid Obesity affecting Supervision of normal first Anxiety Hypothyroid Obesity affecting Supervision of normal first Obesity affecting Supervision of normal first Monilial intertrigo Anxiety Hypothyroid Obesity affecting Supervision of normal first Anxiety Hypothyroid Obesity affecting Supervision of normal first Decreased movements in third trimester Anxiety Hypothyroid Obesity affecting Supervision of normal first Chief Complaint 15 WK OB 19 WK OB ANATOMY 23 WK OB DRAW @ 1:30PM 27 WK OB NST 29 wk ob R/O LABOR R/O LABOR 31 WK OB E-ORDER Reason for Visit Anxiety Hypothyroid Obesity affecting Supervision of normal first Anxiety Hypothyroid Obesity affecting Supervision of normal first Obesity affecting Supervision of normal first Monilial intertrigo Anxiety Hypothyroid Obesity affecting Supervision of normal first Anxiety Hypothyroid Obesity affecting Supervision of normal first Decreased movements in third trimester Anxiety Hypothyroid Obesity affecting Supervision of normal first Chief Complaint 19 WK OB ANATOMY 23 WK OB DRAW @ 1:30PM 27 WK OB NST 29 wk ob R/O LABOR R/O LABOR 31 WK OB E-ORDER Encounter for supervision of normal first pregnanc Reason for Visit Anxiety Hypothyroid Obesity affecting Supervision of normal first Obesity affecting Supervision of normal first Monilial intertrigo Anxiety Hypothyroid Obesity affecting Supervision of normal first Anxiety Hypothyroid Obesity affecting Supervision of normal first Decreased movements in third trimester Anxiety Hypothyroid Obesity affecting Supervision of normal first Chief Complaint 19 WK OB ANATOMY 23 WK OB DRAW @ 1:30PM 27 WK OB NST 29 wk ob R/O LABOR R/O LABOR 31 WK OB E-ORDER Encounter for supervision of normal first pregnanc DECREASED MOVEMENT Reason for Visit Anxiety Hypothyroid Obesity affecting Supervision of normal first Obesity affecting Supervision of normal first Monilial intertrigo Anxiety Hypothyroid Obesity affecting Supervision of normal first Anxiety Hypothyroid Obesity affecting Supervision of normal first Decreased movements in third trimester Anxiety Hypothyroid Obesity affecting Supervision of normal first Chief Complaint ANATOMY 23 WK OB DRAW @ 1:30PM 27 WK OB NST 29 wk ob R/O LABOR R/O LABOR 31 WK OB E-ORDER Encounter for supervision of normal first pregnanc DECREASED MOVEMENT DECREASED MOVEMENT 35 WK OB growth/ 1 HR GLUCOSE 36 WK OB OBESITY IN Reason for Visit Obesity affecting pr egnancy Supervision of normal first Monilial intertrigo Anxiety Hypothyroid Obesity affecting Supervision of normal first Anxiety Hypothyroid Obesity affecting Supervision of normal first Decreased movements in third trimester Anxiety Hypothyroid Obesity affecting Supervision of normal first Anxiety Hypothyroid Obesity affecting Supervision of normal first Decreased movements in third trimester Decreased movements in third trimester Anxiety Hypothyroid Obesity affecting Supervision of normal first Anxiety Hypothyroid Macrosomia Obesity affecting Supervision of normal first Chief Complaint ANATOMY 23 WK OB DRAW @ 1:30PM 27 WK OB NST 29 wk ob R/O LABOR R/O LABOR 31 WK OB E-ORDER Encounter for supervision of normal first pregnanc DECREASED MOVEMENT DECREASED MOVEMENT 35 WK OB growth/ 1 HR GLUCOSE 36 WK OB OBESITY IN 37 WK OB 38wk ob Reason for Visit Obesity affecting pr egnancy Supervision of normal first Monilial intertrigo Anxiety Hypothyroid Obesity affecting Supervision of normal first Anxiety Hypothyroid Obesity affecting Supervision of normal first Decreased movements in third trimester Anxiety Hypothyroid Obesity affecting Supervision of normal first Anxiety Hypothyroid Obesity affecting Supervision of normal first Decreased movements in third trimester Decreased movements in third trimester Anxiety Hypothyroid Obesity affecting Supervision of normal first Anxiety Hypothyroid Macrosomia Obesity affecting Supervision of normal first Anxiety Gestational diabetes mellitus (GDM) Hypothyroid Macrosomia Obesity affecting Supervision of normal first Anxiety Gestational diabetes mellitus (GDM) Hypothyroid Macrosomia Obesity affecting Supervision of normal first Chief Complaint 23 WK OB DRAW @ 1:30PM 27 WK OB NST 29 wk ob R/O LABOR R/O LABOR 31 WK OB E-ORDER Encounter for supervision of normal first pregnanc DECREASED MOVEMENT DECREASED MOVEMENT 35 WK OB growth/ 1 HR GLUCOSE 36 WK OB OBESITY IN 37 WK OB 38wk ob 38 WK OB OBESITY IN PRIMARY C SECTION PRIMARY C SECTION PRIMARY C SECTION PRIMARY C SECTION PRIMARY C SECTION Reason for Visit Obesity affecting pr egnancy Supervision of normal first Monilial intertrigo Anxiety Hypothyroid Obesity affecting Supervision of normal first Anxiety Hypothyroid Obesity affecting Supervision of normal first Decreased movements in third trimester Anxiety Hypothyroid Obesity affecting Supervision of normal first Anxiety Hypothyroid Obesity affecting Supervision of normal first Decreased movements in third trimester Decreased movements in third trimester Anxiety Hypothyroid Obesity affecting Supervision of normal first Anxiety Hypothyroid Macrosomia Obesity affecting Supervision of normal first Anxiety Gestational diabetes mellitus (GDM) Hypothyroid Macrosomia Obesity affecting Supervision of normal first Anxiety Gestational diabetes mellitus (GDM) Hypothyroid Macrosomia Obesity affecting Supervision of normal first Anxiety Gestational diabetes mellitus (GDM) Hypothyroid Macrosomia Obesity affecting Supervision of normal first Active labor at term Anemia Anxiety Delivery by section Gestational diabetes mellitus (GDM) Hypothyroid Macrosomia Obesity affecting Supervision of normal first Chief Complaint 31 WK OB E-ORDER Encounter for supervision of normal first pregnanc DECREASED MOVEMENT DECREASED MOVEMENT 35 WK OB growth/ 1 HR GLUCOSE 36 WK OB OBESITY IN 37 WK OB 38wk ob 38 WK OB OBESITY IN PRIMARY C SECTION PRIMARY C SECTION PRIMARY C SECTION PRIMARY C SECTION PRIMARY C SECTION Shield Use and Supplementing with Moms Milk incision check 6 wk , declined IUD Reason for Visit Anxiety Hypothyroid Decreased movements in third trimester Decreased movements in third trimester Anxiety Hypothyroid Anxiety Hypothyroid Anxiety Hypothyroid Gestational diabetes mellitus (GDM) Anxiety Hypothyroid Gestational diabetes mellitus (GDM) Anxiety Hypothyroid Gestational diabetes mellitus (GDM) Anemia Anxiety Hypothyroid Gestational diabetes mellitus (GDM) Care and examination of lactating mother Anxiety History of gestational diabetes Status post delivery Postop check History of gestational diabetes Status post delivery Chief Complaint NEED ORDER Chief Complaint NEED ORDER Abnormal uterine and vaginal bleeding, unspecified Chief Complaint VAG BLEED Chief Complaint Admit Date EORDERS July 24, 2024 3 :14pm ABD PAIN August 01, 2024 1 1:22am VAG BLEEDING, September 03 7:59am MISCARRIAGE / STAT READ September 07, 2024 11:28am miscarriage follow up September 07, 2024 1: 34pm Reason for Visit Admit Date Complete September 07, 2024 1:34 pm Chief Complaint Admit Date EORDERS July 24, 2024 3 :14pm ABD PAIN August 01, 2024 1 1:22am VAG BLEEDING, September 03 7:59am MISCARRIAGE / STAT READ September 07, 2024 11:28am miscarriage follow up September 07, 2024 1: 34pm FLANK PAIN September 24, 2024 1:2 8pm Chief Complaint Admit Date EORDERS July 24, 2024 3 :14pm ABD PAIN August 01, 2024 1 1:22am VAG BLEEDING, September 03 7:59am MISCARRIAGE / STAT READ September 07, 2024 11:28am miscarriage follow up September 07, 2024 1: 34pm FLANK PAIN September 24, 2024 1:2 8pm HEMATURIA/SPONTANEOUS September 4:25pm flank pain October 01, 2024 6:3 1am Chief Complaint Admit Date VAG BLEEDING, September 03 7:59am MISCARRIAGE / STAT READ September 07, 2024 11:28am miscarriage follow up September 07, 2024 1: 34pm FLANK PAIN September 24, 2024 1:2 8pm HEMATURIA/SPONTANEOUS September 4:25pm flank pain October 01, 2024 6:3 1am PT STATES THYROID LABS FOR ALANIS? November 4:36pm Chief Complaint Admit Date HEMATURIA/SPONTANEOUS September 4:25pm flank pain October 01, 2024 6:3 1am PT STATES THYROID LABS FOR ALANIS? November 4:36pm Chief Complaint Admit Date PT STATES THYROID LABS FOR ALANIS? November 4:36pm Early OB bleeding, US next week, hx misc arriage February 02, 2025 2:36pm Reason for Visit Admit Date February 02, 2025 2:36 pm Threatened February 02, 2025 2:36 pm Chief Complaint Admit Date PT STATES THYROID LABS FOR ALANIS? November 4:36pm Early OB bleeding, US next week, hx misc arriage February 02, 2025 2:36pm early dating February 12, 2025 3:1 1pm Chief Complaint Admit Date PT STATES THYROID LABS FOR ALANIS? November 4:36pm Early OB bleeding, US next week, hx misc arriage February 02, 2025 2:36pm early dating February 12, 2025 3:1 1pm *EST* NOB ALLA 4/1 *TWINS February 26 1:08pm Reason for Visit Admit Date February 02, 2025 2:36 pm Threatened February 02, 2025 2:36 pm History of gestational diabe susan mellitus (GDM) in prior , currentl February 26, 2025 1:08pm History of hypothyroidism February 26, 2 025 1:08pm History of miscarriage, currently pregna nt February 26, 2025 1:08pm Hx of section February 26, 2025 1:08pm Obesity affecting February 26, 2025 1:08pm February 26, 2025 1: 08pm Supervision of high-risk Augus t 2024 1:08pm Twin dichorionic diamniotic placenta Aug ust 2024 1:08pm Chief Complaint Admit Date Early OB bleeding, US next week, hx misc arriage February 02, 2025 2:36pm early dating February 12, 2025 3:1 1pm *EST* NOB ALLA 4/1 *TWINS February 26 1:08pm 12wk OB April 01, 2025 3:16pm RECTAL ABSCESS April 02, 2025 2:12pm Reason for Visit Admit Date February 02, 2025 2:36 pm Threatened February 02, 2025 2:36 pm History of gestational diabe susan mellitus (GDM) in prior , currentl February 26, 2025 1:08pm History of hypothyroidism February 26, 2 025 1:08pm History of miscarriage, currently pregna nt February 26, 2025 1:08pm Hx of section February 26, 2025 1:08pm Obesity affecting February 26, 2025 1:08pm February 26, 2025 1: 08pm Supervision of high-risk Augus t 2024 1:08pm Twin dichorionic diamniotic placenta Aug ust 2024 1:08pm History of gestational diabe susan mellitus (GDM) in prior , currentl April 01, 2025 3:16pm History of hypothyroidism March 3:16pm History of miscarriage, currently pregna nt April 01, 2025 3:16pm Hx of section April 01, 2 025 3:16pm Obesity affecting April [id number] 3:16pm April 01, 2025 3:16pm Supervision of high-risk Septe mber 2024 3:16pm Twin dichorionic diamniotic placenta Sep tember 2024 3:16pm Cameron-rectal abscess April 02, 2025 2:12pm Chief Complaint Admit Date Early OB bleeding, US next week, hx misc arriage February 02, 2025 2:36pm early dating US February 12, 2025 3:1 1pm *EST* NOB ALLA 4/1 *TWINS February 26 1:08pm 12wk OB April 01, 2025 3:16pm RECTAL ABSCESS April 02, 2025 2:12pm 16w5d twins* spotting, cramping per SM O [email or web address] 2:33pm 17 WK OB *twins April 28, 2025 3 :14pm CAMERON-RECTAL ABSCESS April 29, 2025 9 :59am recheck abcess/drainage May 06 1:25pm Reason for Visit Admit Date February 02, 2025 2:36 pm Threatened February 02, 2025 2:36 pm History of gestational diabe susan mellitus (GDM) in prior , currentl February 26, 2025 1:08pm History of hypothyroidism February 26, 2 025 1:08pm History of miscarriage, currently pregna nt February 26, 2025 1:08pm Hx of section February 26, 2025 1:08pm Obesity affecting February 26, 2025 1:08pm February 26, 2025 1: 08pm Supervision of high-risk Augus t 2024 1:08pm Twin dichorionic diamniotic placenta Aug ust 2024 1:08pm History of gestational diabe susan mellitus (GDM) in prior , currentl April 01, 2025 3:16pm History of hypothyroidism March 3:16pm History of miscarriage, currently pregna nt April 01, 2025 3:16pm Hx of section April 01, 2 025 3:16pm Obesity affecting April [id number] 3:16pm April 01, 2025 3:16pm Supervision of high-risk Septe mber 2024 3:16pm Twin dichorionic diamniotic placenta Sep tember 2024 3:16pm Cameron-rectal abscess April 02, 2025 2:12pm History of gestational diabe susan mellitus (GDM) in prior , currentl April 26, 2025 2:33pm History of hypothyroidism April 26, 2025 2:33pm History of miscarriage, currently pregna nt April 26, 2025 2:33pm Hx of section April 26 2:33pm Obesity affecting April 2:33pm Cameron-rectal abscess April 26, 2025 2 :33pm April 26, 2025 2 :33pm Supervision of high-risk Octob er 2024 2:33pm Twin dichorionic diamniotic placenta Oct keo 2024 2:33pm History of gestational diabe susan mellitus (GDM) in prior , currentl April 28, 2025 3:14pm History of hypothyroidism April 28, 2025 3:14pm History of miscarriage, currently pregna nt April 28, 2025 3:14pm Hx of section April 28 3:14pm Obesity affecting April 3:14pm Cameron-rectal abscess April 28, 2025 3 :14pm April 28, 2025 3 :14pm Supervision of high-risk Octob er 2024 3:14pm Twin dichorionic diamniotic placenta Oct keo 2024 3:14pm Perianal abscess April 29, 2025 9 :59am Perianal abscess May 06, 2025 1 :25pm Chief Complaint Admit Date Early OB bleeding, US next week, hx misc arriage February 02, 2025 2:36pm early dating US February 12, 2025 3:1 1pm *EST* NOB ALLA 4/1 *TWINS February 26 1:08pm 12wk OB April 01, 2025 3:16pm RECTAL ABSCESS April 02, 2025 2:12pm 16w5d twins* spotting, cramping per SM O ctober 2024 2:33pm 17 WK OB *twins April 28, 2025 3 :14pm CAMERON-RECTAL ABSCESS April 29, 2025 9 :59am recheck abcess/drainage May 06 1:25pm Perianal abscess- SW PT May 14 3:11pm Reason for Visit Admit Date February 02, 2025 2:36 pm Threatened February 02, 2025 2:36 pm History of gestational diabe susan mellitus (GDM) in prior , currentl February 26, 2025 1:08pm History of hypothyroidism February 26, 2 025 1:08pm History of miscarriage, currently pregna nt February 26, 2025 1:08pm Hx of section February 26, 2025 1:08pm Obesity affecting February 26, 2025 1:08pm February 26, 2025 1: 08pm Supervision of high-risk Augus t 2024 1:08pm Twin dichorionic diamniotic placenta Aug ust 2024 1:08pm History of gestational diabe susan mellitus (GDM) in prior , currentl April 01, 2025 3:16pm History of hypothyroidism March 3:16pm History of miscarriage, currently pregna nt April 01, 2025 3:16pm Hx of section April 01, 2 025 3:16pm Obesity affecting April [id number] 3:16pm April 01, 2025 3:16pm Supervision of high-risk Septe mber 2024 3:16pm Twin dichorionic diamniotic placenta Sep tember 2024 3:16pm Cameron-rectal abscess April 02, 2025 2:12pm History of gestational diabe susan mellitus (GDM) in prior , currentl April 26, 2025 2:33pm History of hypothyroidism April 26, 2025 2:33pm History of miscarriage, currently pregna nt April 26, 2025 2:33pm Hx of section April 26 2:33pm Obesity affecting April 2:33pm Cameron-rectal abscess April 26, 2025 2 :33pm April 26, 2025 2 :33pm Supervision of high-risk Octob er 2024 2:33pm Twin dichorionic diamniotic placenta Oct keo 2024 2:33pm History of gestational diabe susan mellitus (GDM) in prior , currentl April 28, 2025 3:14pm History of hypothyroidism April 28, 2025 3:14pm History of miscarriage, currently pregna nt April 28, 2025 3:14pm Hx of section April 28 3:14pm Obesity affecting April 3:14pm Cameron-rectal abscess April 28, 2025 3 :14pm April 28, 2025 3 :14pm Supervision of high-risk Octob er 2024 3:14pm Twin dichorionic diamniotic placenta Oct keo 2024 3:14pm Perianal abscess April 29, 2025 9 :59am Perianal abscess May 06, 2025 1 :25pm Cameron-rectal abscess May 14, 2025 3 :11pm Advance Directives Advance Directive Response Recorded Date/ Time Living Will No November 08, 2020 7: 00pm Power of Vice President Of Talent Acquisition No November 08, 2020 7:00pm Advance Directive Response Recorded Date/ Time Living Will No January 05, 2022 4 :06pm Power of Vice President Of Talent Acquisition No January 05, 2022 4:06pm Advance Directive Response Recorded Date/ Time Living Will No March 16, 2 022 3:25pm Power of Vice President Of Talent Acquisition No March 16, 2022 3:25pm Advance Directive Response Recorded Date/ Time Living Will No March 16, 2 022 2:25pm Power of Vice President Of Talent Acquisition No March 16, 2022 2:25pm Advance Directive Response Recorded Date/ Time Living Will No May 21, 2 022 6:10am Power of Vice President Of Talent Acquisition No May 21, 2022 6:10am Advance Directive Response Recorded Date/ Time Living Will No May 21, 2 022 7:10am Power of Vice President Of Talent Acquisition No May 21, 2022 7:10am Advance Directive Response Recorded Date/ Time Living Will No October 20, 2023 12:29pm Power of Vice President Of Talent Acquisition No October 19 12:29pm Advance Directive Response Recorded Date/ Time Living Will No August 01 2:13pm Power of Vice President Of Talent Acquisition No August 01, 2024 2:13pm Living Will No September 03 025 9:18am Power of Vice President Of Talent Acquisition No September 03, 2024 9:18am Advance Directive Response Recorded Date/ Time Living Will No August 01 2:13pm Do you have a Healthcare Power of Vice President Of Talent Acquisition? No August 01, 2024 2:13pm Living Will No September 03 025 9:18am Do you have a Healthcare Power of Vice President Of Talent Acquisition? No September 03, 2024 9:18am Living Will No September 24, 2024 1:47pm Do you have a Healthcare Power of Vice President Of Talent Acquisition? No September 24, 2024 1:47pm Advance Directive Response Recorded Date/ Time Living Will No August 01 2:13pm Do you have a Healthcare Power of Vice President Of Talent Acquisition? No August 01, 2024 2:13pm Living Will No September 03 025 9:18am Do you have a Healthcare Power of Vice President Of Talent Acquisition? No September 03, 2024 9:18am Living Will No September 24, 2024 1:47pm Do you have a Healthcare Power of Vice President Of Talent Acquisition? No September 24, 2024 1:47pm Living Will No October 01, 2024 6:37am Do you have a Healthcare Power of Vice President Of Talent Acquisition? No October 01, 2024 6:37am Advance Directive Response Recorded Date/ Time Living Will No September 03 025 9:18am Do you have a Healthcare Power of Vice President Of Talent Acquisition? No September 03, 2024 9:18am Living Will No September 24, 2024 1:47pm Do you have a Healthcare Power of Vice President Of Talent Acquisition? No September 24, 2024 1:47pm Living Will No October 01, 2024 6:37am Do you have a Healthcare Power of Vice President Of Talent Acquisition? No October 01, 2024 6:37am Advance Directive Response Recorded Date/ Time Living Will No October 01, 2024 6:37am Do you have a Healthcare Power of Vice President Of Talent Acquisition? No October 01, 2024 6:37am Family History Relationship Condition Age at Onset Recorded Date/T elsy father Diabetes mellitus Unknown Coronary artery disease Unknown Hypertension Unknown Relationship Condition Age at Onset Recorded Date/T elsy father Diabetes mellitus Unknown Coronary artery disease Unknown Hypertension Unknown grandfather Kidney disorder Unknown Malignant neoplasm Unknown Parkinson's disease Unknown mother Malignant neoplasm Unknown Summary Purpose Additional Source Comments Goals (unrecognized section and content) Type Care Experience svdLabor Preferences -CB/BF classes: []labor support person: []labor intervention preferences: []pain management options preferred: []cut cord/dad catch: []: []PP control planned: []discussed possible routes of delivery and associated risks: []special requests: [] Care Experience [facility] Care Teams (unrecognized sec tion and content) Team Status: Active Member Role Status Dates Dr. Zaid Garcia MD Family Provider Active Adriana Lorenzana DO Primary Care Provider Active Team Status: Inactive Member Role Status Dates No Primary Care Physician Primary Care Provider, Refer ring Provider Active Dr. Ashley Mullen MD Attending Provider Active Team Status: Inactive Member Role Status Dates No Primary Care Physician Referring Provider Active Dr. Ashley Mullen MD Attending Provider Active Adriana Lorenzana DO Primary Care Provider Active Team Status: Inactive Member Role Status Dates No Primary Care Physician Referring Provider Active Dr. Prudence Law DO Attending Provider Activ e Adriana Lorenzana , DO Primary Care Provider Active Team Status: Active Member Role Status Dates Adriana Lorenzana DO Primary Care Provider Active Dr. Ashley Mullen MD Attending Pr ovider, Referring Provider, Other Provider Active Team Status: Inactive Member Role Status Dates Adriana Lorenzana DO Primary Care Provider, Referring Provider Active Dr. Prudence Law DO Attending Provider Activ e Team Status: Active Member Role Status Dates Adriana Lorenzana DO Primary Care Provider Active Dr. Prudence Law DO Admit Prov ider, Referring Provider, Other Provider Active Dr. Ashley Mullen MD Attending Provider Active Team Status: Active Member Role Status Dates Adriana Lorenzana DO Primary Care Provider Active Dr. Prudence Law DO Admit Prov ider, Referring Provider, Other Provider Active Destinee Marino BOAT DETAILER, BOAT DETAILER-C Attending Provider Active Team Status: Active Member Role Status Dates Adriana Lorenzana DO Primary Care Provider Active Dr. Prudence Law , DO Admit Prov ider, Referring Provider, Other Provider Active Trish Beltran CNM Attending Provider Active Team Status: Active Member Role Status Dates Adriana Lorenzana DO Primary Care Provider Active Dr. Prudence Law DO Admit Prov ider, Attending Provider, Referring Provider, Other Provider Active Team Status: Inactive Member Role Status Dates Adriana Lorenzana , DO Primary Care Provider, Referring Provider Active Kayce Pérez BOAT DETAILER, BOAT DETAILER-C Attending Provider Active Team Status: Inactive Member Role Status Dates Adriana Lorenzana , DO Primary Care Provider, Referring Provider Active Destinee Marino BOAT DETAILER, BOAT DETAILER-C Attending Provider Active Team Status: Inactive Member Role Status Dates No Primary Care Physician Primary Care Provider Active Dr. Ashley Mullen MD Attending Provider, Referr ing Provider Active Team Status: Inactive Member Role Status Dates Dr. Ashley Mullen MD Attending Provider Active Adriana Lorenzana DO Primary Care Provider Active Team Status: Inactive Member Role Status Dates Adriana Lorenzana DO Primary Care Provider Active Dr. Ashley Mullen MD Attending Provider, Referr ing Provider Active Team Status: Inactive Member Role Status Dates Adriana Lorenzana DO Primary Care Provider Active Dr. Ashley Mullen MD Attending Provider Active Team Status: Inactive Member Role Status Dates Adriana Lorenzana DO Primary Care Provider Active Dr. Prudence Law DO Admit Prov ider, Attending Provider, Referring Provider Active Team Status: Inactive Member Role Status Dates Adriana Lorenzana DO Primary Care Provider Active Dr. Prudence Law DO Attending Provider Activ e [employer]inct Captain Relationship Specialty Start Date End Date Zaid Dumont MD PCP - General Family Medicine 07/20/16 Team Status: Inactive Member Role Status Dates Adriana Lorenzana DO Primary Care Provider, Attending Provider Active Team Status: Inactive Member Role Status Dates Adriana Lorenzana DO Primary Care Provi sb, Attending Provider, Referring Provider Active Team Status: Active Member Role Status Dates Adriana Lorenzana , DO Primary Care Provider, Attending Provider Active [employer] Captain Relationship Specialty Start Date End Date Zaid Dumont MD PCP - General Family Medicine 07/20/16 Team Status: Active Member Role Status Dates Dr. Zaid Garcia MD Family Provider Active Stacey Santacruz MD Primary Care Provider Active Team Status: Inactive Member Role Status Dates Dr. Lissette Biggs DO Emergency Provider Active Stacey Santacruz MD Primary Care Provider Active [employer] Captain Relationship Specialty Start Date End Date Zaid Dumont MD PCP - General Family Medicine 07/20/16 Precinct Captain Relationship Specialty Start Date End Date Physicians, [facility] [place] PCP - General 12/11/23 Precinct Captain Relationship Specialty Start Date End Date Physicians, [facility] [place] PCP - General 12/11/23 Precinct Captain Relationship Specialty Start Date End Date Physicians, [facility] [place] PCP - General 12/11/23 Precinct Captain Relationship Specialty Start Date End Date Physicians, [facility] [place] PCP - General 12/11/23 Precinct Captain Relationship Specialty Start Date End Date Physicians, [facility] [place] PCP - General 12/11/23 Team Status: Active Member Role Status Avani Santacruz MD Primary Care Provider Active Team Status: Inactive Member Role Status Avani Santacruz MD Primary Care Provider Active St art: July 13, 2024 End: July 13, 2024 [facility] BOAT DETAILER, BOAT DETAILER-C Attending Provider Active Start: July 13, 2024 End: July 13, 2024 Team Status: Inactive Member Role Status Avani Santacruz MD Primary Care Provider Active St art: July 24, 2024 End: July 24, 2024 Dr. Ashley Mullen MD Attending Provider Active Start: July 24, 2024 End: July 24, 2024 Dr. Ashley Mullen MD Referring Provider Active Start: July 24, 2024 End: July 24, 2024 Team Status: Inactive Member Role Status Avani Santacruz MD Primary Care Provider Active St art: August 01, 2024 End: August 01, 2024 Dr. Khadar Abrams , Attending Provider Active Start: August 01, 2024 End: August 01, 2024 Dr. Khadar Abrams DO Emergency Provider Active Start: August 01, 2024 End: August 01, 2024 Team Status: Inactive Member Role Status Avani Santacruz MD Primary Care Provider Active St art: August 26, 2024 End: August 26, 2024 Jocelyn Gomez BOAT DETAILER, BOAT DETAILER-C Attending Provider Active S tart: August 26, 2024 End: August 26, 2024 Jocelyn Gomez BOAT DETAILER, BOAT DETAILER-C Referring Provider Active S tart: August 26, 2024 End: August 26, 2024 Team Status: Inactive Member Role Status Avani Santacruz MD Primary Care Provider Active St art: August 31, 2024 End: August 31, 2024 Berna Keane CNM Attending Provider Active S tart: August 31, 2024 End: August 31, 2024 Berna Keane CNM Referring Provider Active S tart: August 31, 2024 End: August 31, 2024 Team Status: Inactive Member Role Status Avani Santacruz MD Primary Care Provider Active St art: September 02, 2024 End: September 02, 2024 Dr. Prudence Law DO Attending Provider Activ e Start: September 02, 2024 End: September 02, 2024 Dr. Prudence Law DO Referring Provider Activ e Start: September 02, 2024 End: September 02, 2024 Team Status: Inactive Member Role Status Avani Santacruz MD Primary Care Provider Active St art: September 03, 2024 End: September 03, 2024 Ernst Garcia MD Emergency Provider Active Star t: September 03, 2024 End: September 03, 2024 Team Status: Active Member Role Status Avani Santacruz MD Primary Care Provider Active St art: September 07, 2024 Dr. Prudence Law DO Attending Provider Activ e Start: September 07, 2024 Dr. Prudence Law DO Referring Provider Activ e Start: September 07, 2024 Team Status: Inactive Member Role Status Avani Santacruz MD Primary Care Provider Active St art: September 07, 2024 End: September 07, 2024 Stacey Santacruz MD Referring Provider Active Start : September 07, 2024 End: September 07, 2024 Dr. Prudence Law DO Attending Provider Activ e Start: September 07, 2024 End: September 07, 2024 Team Status: Inactive Member Role Status Avani Santacruz MD Primary Care Provider Active St art: September 03, 2024 End: September 03, 2024 Ernst Garcia MD Attending Provider Active Star t: September 03, 2024 End: September 03, 2024 Ernst Garcia MD Emergency Provider Active Star t: September 03, 2024 End: September 03, 2024 Team Status: Inactive Member Role Status Avani Santacruz MD Primary Care Provider Active St art: September 07, 2024 End: September 07, 2024 Dr. Prudence Law DO Attending Provider Activ e Start: September 07, 2024 End: September 07, 2024 Dr. Prudence Law DO Referring Provider Activ e Start: September 07, 2024 End: September 07, 2024 Team Status: Inactive Member Role Status Avani Santacruz MD Primary Care Provider Active St art: September 24, 2024 End: September 24, 2024 Dr. Khadar Abrams DO Referring Provider Active Start: September 24, 2024 End: September 24, 2024 Dr. Khadar Abrams DO Emergency Provider Active Start: September 24, 2024 End: September 24, 2024 Team Status: Inactive Member Role Status Avani Santacruz MD Primary Care Provider Active St art: September 24, 2024 End: September 24, 2024 Dr. Khadar Abrams DO Attending Provider Active Start: September 24, 2024 End: September 24, 2024 Dr. Khadar Abrams DO Referring Provider Active Start: September 24, 2024 End: September 24, 2024 Dr. Khadar Abrams DO Emergency Provider Active Start: September 24, 2024 End: September 24, 2024 Team Status: Active Member Role Status Avani Santacruz MD Primary Care Provider Active St art: September 30, 2024 Julio Cesar Michael BOAT DETAILER, BOAT DETAILER-C Attending Provider Active Start: September 30, 2024 Julio Cesar Michael BOAT DETAILER, BOAT DETAILER-C Referring Provider Active Start: September 30, 2024 Team Status: Active Member Role Status Avani Santacruz MD Primary Care Provider Active St art: September 30, 2024 Jocelyn Gomez BOAT DETAILER, BOAT DETAILER-C Attending Provider Active S tart: September 30, 2024 Jocelyn Gomez BOAT DETAILER, BOAT DETAILER-C Referring Provider Active S tart: September 30, 2024 Team Status: Inactive Member Role Status Avani Santacruz MD Primary Care Provider Active St art: October 01, 2024 End: October 01, 2024 Dr. Khadar Abrams , Emergency Provider Active Start: October 01, 2024 End: October 01, 2024 Team Status: Inactive Member Role Status Avani Santacruz MD Primary Care Provider Active St art: September 30, 2024 End: September 30, 2024 Julio Cesar Michael BOAT DETAILER, BOAT DETAILER-C Attending Provider Active Start: September 30, 2024 End: September 30, 2024 Julio Cesar Michael BOAT DETAILER, BOAT DETAILER-C Referring Provider Active Start: September 30, 2024 End: September 30, 2024 Team Status: Inactive Member Role Status Avani Santacruz MD Primary Care Provider Active St art: September 30, 2024 End: September 30, 2024 Jocelyn Gomez BOAT DETAILER, BOAT DETAILER-C Attending Provider Active S tart: September 30, 2024 End: September 30, 2024 Jocelyn Gomez BOAT DETAILER, BOAT DETAILER-C Referring Provider Active S tart: September 30, 2024 End: September 30, 2024 Team Status: Inactive Member Role Status Avani Santacruz MD Primary Care Provider Active St art: October 01, 2024 End: October 01, 2024 Dr. Khadar Abrams DO Attending Provider Active Start: October 01, 2024 End: October 01, 2024 Dr. Khadar Abrams DO Emergency Provider Active Start: October 01, 2024 End: October 01, 2024 Team Status: Inactive Member Role Status Avani Santacruz MD Primary Care Provider Active St art: December 04, 2024 End: December 04, 2024 Stacey Santacruz MD Attending Provider Active Start : December 04, 2024 End: December 04, 2024 Stacey Santacruz MD Referring Provider Active Start : December 04, 2024 End: December 04, 2024 Precinct Captain Relationship Specialty Start Date End Date [place], [place] PCP - General 12/11/23 Team Status: Active Member Role/Relationship Status Avani Santacruz MD Primary Care Provider Active Team Status: Inactive Member Role/Relationship Status Avani Santacruz MD Primary Care Provider Active St art: September 30, 2024 End: September 30, 2024 Julio Cesar Michael BOAT DETAILER, BOAT DETAILER-C Attending Provider Active Start: September 30, 2024 End: September 30, 2024 Julio Cesar Michael BOAT DETAILER, BOAT DETAILER-C Referring Provider Active Start: September 30, 2024 End: September 30, 2024 Team Status: Inactive Member Role/Relationship Status Avani Santacruz MD Primary Care Provider Active St art: September 30, 2024 End: September 30, 2024 Jocelyn Gomez BOAT DETAILER, BOAT DETAILER-C Attending Provider Active S tart: September 30, 2024 End: September 30, 2024 Jocelyn Gomez NP, BOAT DETAILER-C Referring Provider Active S tart: September 30, 2024 End: September 30, 2024 Team Status: Inactive Member Role/Relationship Status Avani Santacruz MD Primary Care Provider Active St art: October 01, 2024 End: October 01, 2024 Dr. Khadar Abrams DO Attending Provider Active Start: October 01, 2024 End: October 01, 2024 Dr. Khadar Abrams DO Emergency Provider Active Start: October 01, 2024 End: October 01, 2024 Team Status: Inactive Member Role/Relationship Status Avani Santacruz MD Primary Care Provider Active St art: December 04, 2024 End: December 04, 2024 Stacey Santacruz MD Attending Provider Active Start : December 04, 2024 End: December 04, 2024 Stacey Santacruz MD Referring Provider Active Start : December 04, 2024 End: December 04, 2024 Team Status: Inactive Member Role/Relationship Status Avani Santacruz MD Primary Care Provider Active St art: January 22, 2025 End: January 22, 2025 Stacey Santacruz MD Attending Provider Active Start : January 22, 2025 End: January 22, 2025 Stacey Santacruz MD Referring Provider Active Start : January 22, 2025 End: January 22, 2025 Team Status: Active Member Role/Relationship Status Avani Santacruz MD Primary Care Provider Active St art: January 28, 2025 Stacey Santacruz MD Attending Provider Active Start : January 28, 2025 Stacey Santacruz MD Referring Provider Active Start : January 28, 2025 Team Status: Inactive Member Role/Relationship Status Avani Santacruz MD Primary Care Provider Active St art: December 04, 2024 End: December 04, 2024 Stacey Santacruz MD Attending Provider Active Start : December 04, 2024 End: December 04, 2024 Stacey Santacruz MD Referring Provider Active Start : December 04, 2024 End: December 04, 2024 Team Status: Inactive Member Role/Relationship Status Avani Santacruz MD Primary Care Provider Active St art: January 22, 2025 End: January 22, 2025 Stacey Santacruz MD Attending Provider Active Start : January 22, 2025 End: January 22, 2025 Stacey Santacruz MD Referring Provider Active Start : January 22, 2025 End: January 22, 2025 Team Status: Active Member Role/Relationship Status Avani Santacruz MD Primary Care Provider Active St art: January 28, 2025 Stacey Santacruz MD Attending Provider Active Start : January 28, 2025 Stacey Santacruz MD Referring Provider Active Start : January 28, 2025 Team Status: Inactive Member Role/Relationship Status Avani Santacruz MD Primary Care Provider Active St art: February 02, 2025 End: February 02, 2025 Stacey Santacruz MD Referring Provider Active Start : February 02, 2025 End: February 02, 2025 Dr. Ashley Mullen MD Attending Provider Active Start: February 02, 2025 End: February 02, 2025 Team Status: Inactive Member Role/Relationship Status Avani Santacruz MD Primary Care Provider Active St art: January 28, 2025 End: January 28, 2025 Stacey Santacruz MD Attending Provider Active Start : January 28, 2025 End: January 28, 2025 Stacey Santacruz MD Referring Provider Active Start : January 28, 2025 End: January 28, 2025 Team Status: Inactive Member Role/Relationship Status Avani Santacruz MD Primary Care Provider Active St art: February 12, 2025 End: February 12, 2025 Berna Keane CNM Attending Provider Active S tart: February 12, 2025 End: February 12, 2025 Berna Keane CNM Referring Provider Active S tart: February 12, 2025 End: February 12, 2025 Team Status: Inactive Member Role/Relationship Status Avani Santacruz MD Primary Care Provider Active St art: February 26, 2025 End: February 26, 2025 Stacey Santacruz MD Referring Provider Active Start : February 26, 2025 End: February 26, 2025 Dr. Ashley Mullen MD Attending Provider Active Start: February 26, 2025 End: February 26, 2025 Team Status: Inactive Member Role/Relationship Status Avani Santacruz MD Primary Care Provider Active St art: February 26, 2025 End: February 26, 2025 Dr. Ashley Mullen MD Attending Provider Active Start: February 26, 2025 End: February 26, 2025 Dr. Ashley Mullen MD Referring Provider Active Start: February 26, 2025 End: February 26, 2025 Team Status: Inactive Member Role/Relationship Status Avani Santacruz MD Primary Care Provider Active St art: March 11, 2025 End: March 11, 2025 Dr. Prudence Law DO Attending Provider Activ e Start: March 11, 2025 End: March 11, 2025 Team Status: Active Member Role/Relationship Status Avani Santacruz MD Primary care physician Active Team Status: Inactive Member Role/Relationship Status Avani Santacruz MD Primary care physician Active S tart: January 22, 2025 End: January 22, 2025 Stacey Santacruz MD Attending physician Active Star t: January 22, 2025 End: January 22, 2025 Stacey Santacruz MD Referring Provider Active Start : January 22, 2025 End: January 22, 2025 Team Status: Inactive Member Role/Relationship Status Avani Santacruz MD Primary care physician Active S tart: January 28, 2025 End: January 28, 2025 Stacey Santacruz MD Attending physician Active Star t: January 28, 2025 End: January 28, 2025 Stacey Santacruz MD Referring Provider Active Start : January 28, 2025 End: January 28, 2025 Team Status: Inactive Member Role/Relationship Status Avani Santacruz MD Primary care physician Active S tart: February 02, 2025 End: February 02, 2025 Stacey Santacruz MD Referring Provider Active Start : February 02, 2025 End: February 02, 2025 Dr. Ashley Mullen MD Attending physician Active Start: February 02, 2025 End: February 02, 2025 Team Status: Inactive Member Role/Relationship Status Avani Santacruz MD Primary care physician Active S tart: February 12, 2025 End: February 12, 2025 Berna Keane CNM Attending physician Active Start: February 12, 2025 End: February 12, 2025 Berna Keane CNM Referring Provider Active S tart: February 12, 2025 End: February 12, 2025 Team Status: Inactive Member Role/Relationship Status Avani Santacruz MD Primary care physician Active S tart: February 26, 2025 End: February 26, 2025 Stacey Santacruz MD Referring Provider Active Start : February 26, 2025 End: February 26, 2025 Dr. Ashley Mullen MD Attending physician Active Start: February 26, 2025 End: February 26, 2025 Team Status: Inactive Member Role/Relationship Status Avani Santacruz MD Primary care physician Active S tart: February 26, 2025 End: February 26, 2025 Dr. Ashley Mullen MD Attending physician Active Start: February 26, 2025 End: February 26, 2025 Dr. Ashley Mullen MD Referring Provider Active Start: February 26, 2025 End: February 26, 2025 Team Status: Inactive Member Role/Relationship Status Avani Santacruz MD Primary care physician Active S tart: March 11, 2025 End: March 11, 2025 Dr. Prudence Law DO Attending physician Active Start: March End: March 11, 2025 Team Status: Inactive Member Role/Relationship Status Avani Santacruz MD Primary care physician Active S tart: April 01, 2025 End: April 01, 2025 Stacey Santacruz MD Referring Provider Active Start : April 01, 2025 End: April 01, 2025 Dr. Prudence Law DO Attending physician Active Start: March End: April 01, 2025 Team Status: Inactive Member Role/Relationship Status Avani Santacruz MD Primary care physician Active S tart: April 02, 2025 End: April 02, 2025 Stacey Santacruz MD Referring Provider Active Start : April 02, 2025 End: April 02, 2025 Dr. Damian Antunez MD Attending physician Active Start: April 02, 2025 End: April 02, 2025 Team Status: Inactive Member Role/Relationship Status Avani Santacruz MD Primary care physician Active S tart: April 26, 2025 End: April 26, 2025 Stacey Santacruz MD Referring Provider Active Start : April 26, 2025 End: April 26, 2025 Dr. Ashley Mullen MD Attending physician Active Start: April 26, 2025 End: April 26, 2025 Team Status: Inactive Member Role/Relationship Status Avani Santacruz MD Primary care physician Active S tart: April 28, 2025 End: April 28, 2025 Stacey Santacruz MD Referring Provider Active Start : April 28, 2025 End: April 28, 2025 Dr. Ashley Mullen MD Attending physician Active Start: April 28, 2025 End: April 28, 2025 Team Status: Inactive Member Role/Relationship Status Avani Santacruz MD Primary care physician Active S tart: April 29, 2025 End: April 29, 2025 Stacey Santacruz MD Referring Provider Active Start : April 29, 2025 End: April 29, 2025 Liz SMITH PA-C Attending physician Active Start: April 29, 2025 End: April 29, 2025 Team Status: Inactive Member Role/Relationship Status Avani Santacruz MD Primary care physician Active S tart: May 06, 2025 End: May 06, 2025 Stacey Santacruz MD Referring Provider Active Start : May 06, 2025 End: May 06, 2025 Liz SMITH PA-C Attending physician Active Start: May 06, 2025 End: May 06, 2025 Team Status: Inactive Member Role/Relationship Status Avani Santacruz MD Primary care physician Active S tart: May 14, 2025 End: May 14, 2025 Stacey Santacruz MD Referring Provider Active Start : May 14, 2025 End: May 14, 2025 Dr. Jn Fink MD Attending physician Active Start: May 14, 2025 End: May 14, 2025 Team Status: Inactive Member Role/Relationship Status Dates Stacey Santacruz MD Primary care physician Active S tart: May 14, 2025 End: May 14, 2025 Dr. Jn Fink MD Attending physician Active Start: May 14, 2025 End: May 14, 2025 Dr. Jn Fink MD Referring Provider Active Start: May 14, 2025 End: May 14, 2025 Source Comments (unrecognize d section and content) In the event this informatio n is protected by the Federal Confidentiality of Alcohol and Drug Abuse Patient Records regulations: The Federal rules restrict any use of the information to criminally investigate or prosecute any alcohol or drug abuse patient.[facility] the event this information is protected by the Federal Confidentiality of Alcohol and Drug Abuse Patient Records regulations: The Federal rules restrict any use of the information to criminally investigate or prosecute any alcohol or drug abuse patient.[facility] the event this information is protected by the Federal Confidentiality of Alcohol and Drug Abuse Patient Records regulations: The Federal rules restrict any use of the information to criminally investigate or prosecute any alcohol or drug abuse patient.[facility] the event this information is protected by the Federal Confidentiality of Alcohol and Drug Abuse Patient Records regulations: The Federal rules restrict any use of the information to criminally investigate or prosecute any alcohol or drug abuse patient.[facility]In the event this information is protected by the Federal Confidentiality of Alcohol and Drug Abuse Patient Records regulations: The Federal rules restrict any use of the information to criminally investigate or prosecute any alcohol or drug abuse patient.[facility]In the event this information is protected by the Federal Confidentiality of Alcohol and Drug Abuse Patient Records regulations: The Federal rules restrict any use of the information to criminally investigate or prosecute any alcohol or drug abuse patient.[facility] CenterIn the event this information is protected by the Federal Confidentiality of Alcohol and Drug Abuse Patient Records regulations: The Federal rules restrict any use of the information to criminally investigate or prosecute any alcohol or drug abuse patient.[facility] CenterIn the event this information is protected by the Federal Confidentiality of Alcohol and Drug Abuse Patient Records regulations: The Federal rules restrict any use of the information to criminally investigate or prosecute any alcohol or drug abuse patient.[facility] CenterIn the event this information is protected by the Federal Confidentiality of Alcohol and Drug Abuse Patient Records regulations: The Federal rules restrict any use of the information to criminally investigate or prosecute any alcohol or drug abuse patient.[facility] CenterIn the event this information is protected by the Federal Confidentiality of Alcohol and Drug Abuse Patient Records regulations: The Federal rules restrict any use of the information to criminally investigate or prosecute any alcohol or drug abuse patient.[facility] CenterIn the event this information is protected by the Federal Confidentiality of Alcohol and Drug Abuse Patient Records regulations: The Federal rules restrict any use of the information to criminally investigate or prosecute any alcohol or drug abuse patient.[facility] CenterIn the event this information is protected by the Federal Confidentiality of Alcohol and Drug Abuse Patient Records regulations: The Federal rules restrict any use of the information to criminally investigate or prosecute any alcohol or drug abuse patient.[facility] CenterIn the event this information is protected by the Federal Confidentiality of Alcohol and Drug Abuse Patient Records regulations: The Federal rules restrict any use of the information to criminally investigate or prosecute any alcohol or drug abuse patient.[facility] CenterIn the event this information is protected by the Federal Confidentiality of Alcohol and Drug Abuse Patient Records regulations: The Federal rules restrict any use of the information to criminally investigate or prosecute any alcohol or drug abuse patient.[facility] Reason for Visit (unrecogniz ed section and content) Reason Comments Ear Pain Left ear pain x 1 we ek Reason Comments Ear Pain Bilateral x last nig ht Reason Comments Nasal Congestion drainage x 3 days, r ight ear pain x last night Reason Comments Sore Throat X 1 day Reason Comments Sore Throat ST x 1.5 weeks Reason Comments Results Reason Comments Ear Problem Pressure and pain in L ear, swollen lymph node behind ear x 2 days Reason Comments Cough Lots of phlegm, ear pressure, nasal congestion, dark green phlegm, worse at HS x 1 week Reason Comments Cough Dry cough, productiv e at HS, green phlegm, lying down makes it worse, fatigue x 9 days Ear Pain On and off x 9 days Reason Comments Vaginal Problem Vaginal discharge an d possible yeast infection x 1 day Reason Comments Sore Throat ST, runny nose and c ough x 1 day INFORMATION SOURCE (unrecogn ized section and content) DATE CREATED AUTHOR 01/28/2025 [facility] DATE CREATED AUTHOR AUTHOR'S ORGANIZ ATION 04/24/2025 [facility] DATE CREATED AUTHOR AUTHOR'S ORGANIZ ATION 05/17/2025 [facility] FOR RECORDS PERTAINING TO PATIENTS WHO ARE OR HAVE BEEN ENROLLED IN A CHEMICAL DEPENDENCY/SUBSTANCEABUSE PROGRAM, SOME INFORMATION MAY BE OMITTED. This clinical summary was aggregated from multiple sources. Caution should be exercised in using it in the provision of clinical care. This summary normalizes information from multiple sources, and as a consequence, information in this document may materially change the coding, format and clinical context of patient data. In addition, data may be omitted in some cases. CLINICAL DECISIONS SHOULD BE BASED ON THE PRIMARY CLINICAL RECORDS. [employer] provides no warranty or guarantee of the accuracy or completeness of information in this document.
[2025-06-02 20:12] LABS: Hematocrit 35.9 % (37-47); Hemoglobin 12.3 g/dL (12.0-15.0); Immature Granulocytes Count 0.150 X10^3/uL (0.0-0.0); Mean Corp Hgb Conc 34.3 g/dL (32-36); Mean Corpuscular Volume 89.8 fL (81-99); Mean Platelet Vol. 9.5 fl (6.2-12.0); NRBC Flagged by Analyzer 0 % (0-5); Platelet Count 147 K/mm3 (150-450); RBC Distribution Width CV 14.6 % (11.6-14.6); RBC Distribution Width SD 47.6 fl (35.1-43.9); Red Blood Count 4.00 M/mm3 (4.2-5.4); White Blood Count 7.4 K/mm3 (4.4-11.0)
--- NOTE | 2025-06-02 20:14 | ED.VIS.CHEST ---
HPI History of Present Illness Chief Complaint: Chest Pain Informant: patient Onset/Context/Timing Onset: Today and Hours Activity at onset: gradual Timing: Continuous Quality: Positive for Sharp and - (Left chest wall.) Location: Left Chest Current Severity: Mild Maximum Severity: Mild Worsened By: Movement of Arm Relieved By: Nothing Associated Symptoms: Negative for Nausea, Vomiting, Diaphoresis, Dyspnea, Cough, Fever, Lightheadedness, Acid Reflux or Palpitations Narrative Narrative: 30-year-old female currently with twins 22 weeks. Due date October 06, 2025. No cardiac history. No history of DVT or PE. No recent travel surgery immobilization. Denies any leg pain or hemoptysis. No pleuritic pain. Was sitting at home today at rest 3:00 started left-sided chest discomfort radiated to her left shoulder. No fall injury or trauma. Prior Similar Symptoms: No Recent Illness/Hospitalization: No CVD Risk Factors: Negative for Hypertension, Diabetes, Hypercholesterolemia, Family History 1' </=55 or Smoking PE Risk Factors: Negative for Recent Travel/Surgery, Recent Immobilization, Prior DVT or PE, Cancer or OCP + Smoking + >/=35 TAD Risk Factors: Negative for Marfan's Syndrome [facility] Medical History Seasonal allergies Ovarian cyst Active labor at term Infertility Thyroid disorder Superficial varicosities Macrosomia Obesity affecting Supervision of normal first Anxiety Home Medications ?Medication ?Instructions ?Recorded ?Last Taken ?Type multivit-min no.71-iron fum 28 1 cap PO DAILY 02/18/25 Unknown History mg-folate no.1 1 mg-dha 300 mg capsule (PNV-Melvin) ondansetron 4 mg disintegrating 4 mg PO Q8H PRN nausea and 05/31/25 Unknown Rx tablet vomiting #30 tabs cephalexin 500 mg capsule 500 mg PO Q6H 06/02/25 Unknown History Allergy/AdvReac Type Severity Reaction Status Date / Time tetracycline Allergy Mild Hives Verified 06/02/25 19:35 Family History Father Diabetes CAD (coronary artery disease) Hypertension Grandfather Kidney disease Paternal Cancer Maternal- skin Parkinsons disease Paternal Mother Cancer skin Surgical History Delivery by section Social History adopted: No household members: spouse and children housing: house number of children: 1 current occupational status: employed current occupation: [employer] current occupational exposures/hazards: No pets and animals: Yes (avoid litter box) pets and animals: cat(s) and dog(s) history of recent travel: No sexually active: Yes Smoking Status: Never smoker alcohol intake: current alcohol intake frequency: a few times a month details: not while substance use type: does not use well-balanced diet: daily or most days caffeine: Yes Type: carbonated beverages Number of servings: 1 eating out: 1-3 times/week during the past year weight has: decreased > 10 lbs what type of physical activity do you participate in: weight training frequency: 5-6 times per week duration: 15-30 minutes/day armando/anabaptist: Zoroastrianism seatbelt use: always do you feel safe at home: Yes additional social history: Spouse-Melina Johnson ROS ROS ED ROS Narrative Recently for nausea vomiting diarrhea. Denies any cardiac history. No recent exertional dyspnea or exertional chest pain. No leg pain or swelling. No hemoptysis. Constitutional Constitutional ED: Denies chills or fever(s) Eyes Eyes: Reports none ENT ENT ED: Denies ear pain or rhinorrhea Cardiovascular Cardiovascular: Reports chest pain Respiratory/Chest Respiratory/Chest: Denies cough or dyspnea Gastrointestinal Gastrointestinal: Denies abdominal pain Genitourinary Genitourinary ED: Denies dysuria or hematuria Musculoskeletal Musculoskeletal: Denies arthralgias or back pain Integumentary Denies abscess or Abrasions Neurologic Neurologic: Denies headache(s) Psychiatric Psychiatric: Denies anxiety, depression or suicidal ideation Endocrine Endocrinology: Denies cold intolerance Hematologic/Lymphatic Hematologic/Lymphatic: Denies easy bleeding or easy bruising Allergic/Immunologic Allergic/Immunologic ED: Denies mouth swelling, tongue swelling or urticaria EXAM Physical Exam Narrative Exam Narrative: 30-year-old female clinically looks well sitting upright in bed. Blood pressure is elevated 160/85. Pulse ox 100% on room air no hypoxia. H EENT exam pupils round react light. Moist mutes members. Neck nontender no JVD. No lymphadenopathy. Back nontender. Lungs clear to auscultation bilaterally. Heart regular rhythm rate about 95 no murmur. Chest wall and ribs she has some mild reproducible chest wall pain on the left there is no ecchymosis or bruising no redness or warmth. No subcu air. No signs of trauma. Abdomen soft nontender nontender. Gravid uterus nontender. No peritoneal signs. Soft. Moving all 4 extremities. Calves are nontender without edema or cords. Normal dorsi plantarflexion. Equal symmetrical radial pulses. 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 Neurologically she is awake alert. Answer questions following commands. Benign exam. Const Vital Signs: 06/02/25 19:33 06/02/25 19:48 06/02/25 19:57 Temperature 97.7 F L Temperature Source Oral Pulse Rate 98 Respiratory Rate 17 Respiratory Effort Normal Non-Labored Respiratory Pattern Normal Blood Pressure 160/85 H Blood Pressure Mean 110 Pulse Ox 100 100 Oxygen Delivery Method Room Air Room Air 06/02/25 20:32 Temperature Temperature Source Pulse Rate 86 Respiratory Rate 18 Respiratory Effort Respiratory Pattern Blood Pressure 147/82 H Blood Pressure Mean 103 Pulse Ox 99 Oxygen Delivery Method Room Air MDM MDM MDM Narrative Medical decision making narrative: 30-year-old female with atypical chest pain at rest clinically does not sound cardiac. Clinically does not sound like a PE. She is with twins. Cardiac workup will be done. Chest x-ray EKG and labs. She also has a some mild component reproducible pain to her left chest. Patient is Ab1 with that being a miscarriage earlier this year. Repeat exam patient is doing well at 8:43 PM. Resting comfortably. We went over her initial test results. Due to her elevated D-dimer we will get a CTA of her chest. She is comfortable with the plan. Repeat exam patient is doing well at 9:33 PM. Current blood pressures around 117/80. Much improved. She has not been having hypertension during her OB visits. We discussed her CTA being negative. Patient is comfortable being discharged home chest pain uncertain etiology. Follow-up with your OB in the next several days. Return if worse. History & Record Review Discussion w/independent historian: Patient Additional record(s) reviewed:: Prior outpatient record, Prior ED visit and Prior labs Lab Data Attestation: I reviewed the patient's lab results. Lab results narrative: CBC shows a white count of 7. H&H of 12 and 35. Platelets are 147. Chemistries show gap 12. Normal BUN and creatinine. Glucose 85. D-dimer is elevated 0.9 CTA ordered. Initial troponin 8. Labs: Laboratory Results - last 24 hr 06/02/25 20:00 WBC 7.4 RBC 4.00 L Hgb 12.3 Hct 35.9 L MCV 89.8 MCH 30.8 MCHC 34.3 RDW Std Deviation 47.6 H RDW Coeff of Antonio 14.6 Plt Count 147 L MPV 9.5 Immature Gran % (Auto) 2.000 H Neut % (Auto) 69.9 Lymph % (Auto) 15.4 L [place] % (Auto) 11.0 H Eos % (Auto) 1.2 Baso % (Auto) 0.5 Absolute Neuts (auto) 5.1 Absolute Lymphs (auto) 1.13 Nucleated RBC % 0 D-Dimer Quant (PE/DVT) 0.90 H* Sodium 140 Potassium 3.2 L Chloride 106 Carbon Dioxide 22.0 Anion Gap 12 BUN 7 Creatinine 0.65 L Estim Creat Clear Calc 152.83 Est GFR (MDRD) Non-Af 121 BUN/Creatinine Ratio 11.4 Glucose 85 Calcium 8.1 Troponin T High Sens 8 Radiography Chest X-Ray - ED: 2 View, Read by ED Physician, Read by Radiologist, Normal, Heart, Lungs, Mediastinum, Bony Structures and No Acute Disease Diagnostic Testing: Clinical Impression(s) from Imaging Studies Chest X-Ray 06/02/25 20:05 IMPRESSION: No acute cardiopulmonary disease. Reading Location: [facility] Chest CTA 06/02/25 20:35 IMPRESSION: 1. No pulmonary embolism is identified. Some of the distal pulmonary arteries cannot be evaluated due to suboptimal opacification. 2. Mild cardiomegaly. Reading Location: [id number] Chest x-ray 2 views AP and lateral interpreted both by myself and the radiologist shows no acute abnormality. Normal cardiac silhouette. Normal mediastinum. Normal lung [place]. Discharge Plan Triage Chief Complaint: Chest Pain ED Provider: Casimiro Figueroa Dx/Rx/DC Orders Clinical Impression: Chest pain, Twin in second trimester Instructions: ED Chest Pain, Uncertain Cause Prescriptions: No Action PNV-Melvin 28-1-300 mg capsule 1 cap PO DAILY cephalexin 500 mg capsule 500 mg PO Q6H ondansetron 4 mg tablet,disintegrating 4 mg PO Q8H PRN (Reason: nausea and vomiting) Qty: 30 0RF Primary Care Provider: Stacey Santacruz Referrals: Stacey Santacruz MD [Primary Care Provider, [facility]] Ashley Mullen MD [Med Staff - Active Staff, Obstetrics-Gynecology (OBGYN)] Activity Restrictions/Additional Instructions: Your labs, chest x-ray, EKG and CAT scan are all unremarkable. I do not think this is your heart. There is no signs of a blood clot. This may be musculoskeletal pain. Tylenol for pain. 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 Your most recent blood pressure reading was good. Have your blood pressure rechecked next OB visit. Print Language: Lao Disposition Disposition: Home, Self Care
[2025-06-02 20:29] LABS: Anion Gap 12 (5-15); BUN 7 mg/dL (4-19); BUN/Creat Ratio 11.4 RATIO (10-20); Calcium,Total 8.1 mg/dL (7.6-11.0); Carbon Dioxide 22.0 mmol/L (21.0-32.0); Chloride 106 mmol/L (98-108); Estimated Creatinine Clearance 152.83 ml/min (50-250); Glucose 85 mg/dL (70-99); Potassium 3.2 mmol/L (3.3-5.1); Troponin T High Sensitivity 8 ng/L (<=14)
[2025-06-02 20:32] VITALS: BP 147/82; PULSE 86; RESP 18; O2SAT 99
[2025-06-02 20:34] LABS: D-Dimer Quantitative (DVT/PE) 0.90 FEU/ug/m (0.27-0.49)
--- NOTE | 2025-06-02 20:35 | CT_ITS ---
EXAM: CT Angiography Chest Without and With Intravenous Contrast CLINICAL INDICATION: WITH ELEVATED D-DIMER. LEFT CHEST PAIN TECHNIQUE: Axial computed tomographic angiography images of the chest without and with intravenous contrast. This CT exam was performed using one or more of the following dose reduction techniques: automated exposure control, adjustment of the mA and/or kV according to patient size, and/or use of iterative reconstruction technique. MIP reconstructed images were created and reviewed. CONTRAST: 100 cc Isovue-370 RADIATION DOSE: CTDIvol = 15 mGy, DLP = 514.9 mGy-cm COMPARISON: No relevant prior studies available. FINDINGS: LIMITATIONS: Suboptimal opacification of the pulmonary arteries. PULMONARY ARTERIES: No pulmonary embolism is identified. Some of the distal pulmonary arteries cannot be evaluated due to suboptimal opacification. AORTA: No acute findings. No thoracic aortic aneurysm. LUNGS AND PLEURAL SPACES: Unremarkable. No mass. No consolidation. No significant effusion. No pneumothorax. HEART: Mild cardiomegaly. No significant pericardial effusion. No evidence of RV dysfunction. BONES/JOINTS: No acute fracture. No dislocation. SOFT TISSUES: Unremarkable. LYMPH NODES: Unremarkable. No enlarged lymph nodes. CT/CTA Chest W/WO Contrast IMPRESSION: 1. No pulmonary embolism is identified. Some of the distal pulmonary arteries cannot be evaluated due to suboptimal opacification. 2. Mild cardiomegaly. Reading Location: [id number]
[2025-06-02 21:00] VITALS: BP 119/74; PULSE 85; RESP 16; O2SAT 100
[2025-06-02 21:46] VITALS: BP 131/80; PULSE 85; RESP 16; TEMP 36.6; O2SAT 100
== END 2025-06-02 21:47 | disposition home or self-care (01) ==
PROVIDERS: Emergency Provider Emergency Medicine; PCP Family Medicine; Visit Provider Emergency Medicine
DX: O26.892 Other specified pregnancy related conditions, second trimester (principal); R07.89 Other chest pain; O30.002 Twin pregnancy, unspecified number of placenta and unspecified number of amniotic sacs, second trimester; Z3A.22 22 weeks gestation of pregnancy; Z87.59 Personal history of other complications of pregnancy, childbirth and the puerperium
CPT/HCPCS: 71046; 71275; 80048; 84484; 85025; 85379; 93005; 99284; Q9967

== ENCOUNTER 2025-06-21 09:44 | Day surgery (SDC) | payer BC, SELFPAY ==
--- NOTE | 2025-06-16 19:34 | PAT.ANE_ITS ---
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 When Was Last Pacemaker Check QUESTION #4 FULL TEXT: You/Your Family Experience fever (hyperthermia) with Anesthesia Last Oral Intake Last Oral intake: Last Oral Intake NPO since Meds taken in AM with sips of water? Meds patient instructed to take am of surgery PONV PONV - ocean rescue lieutenant: PONV - ocean rescue lieutenant Female Yes 06/16/25 12:54 HX of Motion Sickness Yes 06/16/25 12:54 HX of N/V After Surgery No 06/16/25 12:54 Non-Smoker Yes 06/16/25 12:54 Duration of Surgery greater No 06/16/25 12:54 than 60 minutes Number of Risk Factors 3 06/16/25 12:54 PONV Score Moderate Risk 06/16/25 12:54 Height & Weight Height & Weight: Anesthesia: Height & Weight Height 5 ft 5 in 06/16/25 08:05 Respiratory Assessment Respiratory Assessment - ocean rescue lieutenant: Respiratory Tract Infection Hx - ocean rescue lieutenant Hx Respiratory Tract Infection No 06/16/25 12:54 STOP Sleep Apnea STOP Sleep Apnea - ocean rescue lieutenant: STOP Sleep Apnea - ocean rescue lieutenant Hx Hypertension No 06/16/25 12:54 Hx Sleep Apnea No 06/16/25 12:54 CPAP BIPAP Do you snore loudly (louder No 06/16/25 12:54 than talking or can be heard Do you often feel tired/ No 06/16/25 12:54 fatigued/ sleepy during daytime? Has anyone observed you stop No 06/16/25 12:54 breathing during sleep? STOP Results Negative 06/16/25 12:54 QUESTION #5 FULL TEXT : Do you snore loudly (louder than talking or can be heard through closed doors)? 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 Specify any problems Hx of Preganancy in last 3 N/A 06/16/25 12:54 Months Nurse Filling Out Transfusion NBUCHER 06/16/25 12:54 & Questions: Date: 06/16/25 06/16/25 12:54 Time: 12:56 06/16/25 12:54 Patient unable to answer at this time (ie. confused, unrespo /Reproduction History /Reproductive History - ocean rescue lieutenant: /Reproductive Hx- ocean rescue lieutenant Hx Now Yes 06/16/25 12:54 Gestational Age (in weeks): EDC: Hx Hx Para Hx Section SAB No 06/16/25 12:54 Does the father of the baby or No 06/16/25 12:54 his family experience fever w Father of the baby Malignant Hypertension history comment [facility] Medical History (Updated 06/16/25 @ 13:02 by Veronica Lee) Wears contact lenses Wears glasses Migraine headache Non-smoker History of edema Seasonal allergies Ovarian cyst Active labor at term Infertility Thyroid disorder Superficial varicosities Macrosomia Obesity affecting Supervision of normal first Anxiety Home Medications ?Medication ?Instructions ?Recorded ?Last Taken ?Type multivit-min no.71-iron fum 28 1 cap PO DAILY 02/18/25 Unknown History mg-folate no.1 1 mg-dha 300 mg capsule (PNV-[place]) ondansetron 4 mg disintegrating 4 mg PO Q8H PRN nausea and 05/31/25 Unknown Rx tablet vomiting #30 tabs Allergy/AdvReac Type Severity Reaction Status Date / Time tetracycline Allergy Mild Hives Verified 06/16/25 12:54 Family History Father Diabetes CAD (coronary artery disease) Hypertension Grandfather Kidney disease Paternal Cancer Maternal- skin Parkinsons disease Paternal Mother Cancer skin Surgical History Delivery by section Social History adopted: No household members: spouse and children housing: house number of children: 1 current occupational status: employed current occupation: [employer] current occupational exposures/hazards: No pets and animals: Yes (avoid litter box) pets and animals: cat(s) and dog(s) history of recent travel: No sexually active: Yes Smoking Status: Never smoker alcohol intake: current alcohol intake frequency: a few times a month details: not while substance use type: does not use well-balanced diet: daily or most days caffeine: Yes Type: carbonated beverages Number of servings: 1 eating out: 1-3 times/week during the past year weight has: decreased > 10 lbs what type of physical activity do you participate in: weight training frequency: 5-6 times per week duration: 15-30 minutes/day armando/episcopalian: Taoism seatbelt use: always do you feel safe at home: Yes additional social history: Spouse-Melina Johnson Recommendation Anesthesia Recommendation Anesthesia recommendation: OPTIMIZED for anesthesia
[2025-06-21] VITALS (8 sets, daily range): BP systolic 100–134; BP diastolic 51–78; PULSE 61–82; RESP 14–20; TEMP 36–36.9; O2SAT 95–100; BMI 40.7
--- NOTE | 2025-06-21 09:36 | US_ITS ---
EXAM: OB LIMITED (NO BIOMETRICS), 06/21/2025 CLINICAL HISTORY: (TWINS) HEART TONES PRE AND POST-OP. Reportedly at 24 weeks and 5 days gestation with ALLA 10/06/2025 by previously established dates. COMPARISON: 02/12/2025. TECHNIQUE: A limited transabdominal obstetrical ultrasound was performed to document cardiac activity before and after a reported procedure. Evaluation of both twins was performed. FINDINGS: Gravid uterus containing twin gestations denoted twin A and twin B below: Placenta: Posterior/LEFT lateral, not obviously low-lying. Cervix: Not well seen. Twin A: Amniotic Fluid Index: deepest vertical pocket 4.1 cm (normal 2-8). presentation: Breech. Preprocedural cardiac activity: 145 bpm, regular. Postprocedural cardiac activity: 137 bpm, regular. Twin B: Amniotic Fluid Index: deepest vertical pocket 5.5 cm (normal 2-8). presentation: Breech. Preprocedural cardiac activity: 141 bpm, regular. Postprocedural cardiac activity: 133 bpm, regular. US/OB Limited (No Biometrics) IMPRESSION: 1. Twin gestation with cardiac activity documented pre and postoperativel y as above. 2. Recommend routine 20-week anatomic survey as clinically indicated, unless re cently performed elsewhere. 3. Additional description as above. Reading Location: [id number]
[2025-06-21] MEDS: Lactated Ringers 1,000 ML 15 ML IV (10:27)
--- NOTE | 2025-06-21 11:21 | PCM.PRE.AN2 ---
ASA Classification* ASA Classification ASA Classification: 3 Assessment & Plan Anesthesia* Anesthesia Assessment Anesthesia Assessment: Discussed sedation and/or anesthesia options, risks, benefits, and alternatives with patient/parents/legal guardian/POA. Questions invited. The patient/parents/legal guardian/POA seems to understand and agrees to proceed with anesthesia plan. Reviewed the physical assessment, medical history, allergy history and patient home medications list prior to surgery/procedure/anesthetic and documented any changes. Performed airway and anesthesia risk assessments. Anesthesia Type Anesthesia Type: MAC History Source History Obtained from:: Patient and Chart Anesthesia Focused Assessment* Temperature: 98.4 F Pulse Rate: 71 Blood Pressure: 134/69 Respiratory Rate: 18 Pulse Ox: 100 Oxygen Delivery Method: Room Air Airway Assessment Mouth opens: 2 cm Mallampati Score: II Teeth Condition: Intact Neck Range of motion (ROM): Full ROM Labs Anesthesia Preop lab: CBC WBC, (4.4-11.0) 7.4 K/mm3 06/02/25, 20:00 RBC, (4.2-5.4) 4.00 M/mm3 L 06/02/25, 20:00 Hgb, (12.0-15.0) 12.3 g/dL 06/02/25, 20:00 Hct, (37-47) 35.9 % L 06/02/25, 20:00 Plt Count, (150-450) 147 K/mm3 L 06/02/25, 20:00 CHEMISTRY Potassium, (3.3-5.1) 3.2 mmol/L L 06/02/25, 20:00 Sodium, (133-145) 140 mmol/L 06/02/25, 20:00 BUN, (4-19) 7 mg/dL 06/02/25, 20:00 Creatinine, (0.70-1.20) 0.65 mg/dL L 06/02/25, 20:00 Glucose, (70-99) 85 mg/dL 06/02/25, 20:00 POC Glucose, (74-106) 81 mg/dL 05/22/22, 06:06 TSH, (0.300-4.200) 2.320 uIU/mL 03/11/25, 15:14 COAG HCG, Quant, (<9 non-preg) 1250 mIU/mL H 01/28/25, 15:53 Urine Test Negative Negative 10/20/12, 17:35 Pre-Assessment Diagnosis/Proposed Procedure Planned Operative Procedure(s): EXAM UNDER ANESTHESIA, SETON PLACEMENT WITH MONITORING OF TWINS Anesthesia History Anesthesia History - billing representative: Anesthesia History - billing representative Hx Hospitalization No 06/16/25 12:54 Any Problems With Anesthesia No 06/16/25 12:54 Cholinesterase deficiency No 06/16/25 12:54 You/Your Family Experience No 06/16/25 12:54 fever (hyperthermia) with Relationship Recent Exposure to Contagious No 06/21/25 10:21 Disease Does patient have nerve No 06/16/25 12:54 stimulator Patient instructed to have device shut off --Does patient have Pacemaker No 06/21/25 10:21 or ICD? When Was Last Pacemaker Check QUESTION #4 FULL TEXT: You/Your Family Experience fever (hyperthermia) with Anesthesia Any additional information?: No Last Oral Intake Last Oral intake: Last Oral Intake NPO since 21:00 06/21/25 10:21 Meds taken in AM with sips of No 06/21/25 10:21 water? Meds patient instructed to take am of surgery Any additional information?: No PONV PONV - billing representative: PONV - billing representative Female Yes 06/16/25 12:54 HX of Motion Sickness Yes 06/16/25 12:54 HX of N/V After Surgery No 06/16/25 12:54 Non-Smoker Yes 06/16/25 12:54 Duration of Surgery greater No 06/16/25 12:54 than 60 minutes Number of Risk Factors 3 06/16/25 12:54 PONV Score Moderate Risk 06/16/25 12:54 Any additional information?: No Height & Weight Height & Weight: Anesthesia: Height & Weight Height 5 ft 5 in 06/21/25 10:21 Weight: 111 kg 06/21/25 10:21 Body Mass Index (BMI) 40.7 06/21/25 10:21 Respiratory Assessment Respiratory Assessment - billing representative: Respiratory Tract Infection Hx - billing representative Hx Respiratory Tract Infection No 06/16/25 12:54 Any additional information?: No STOP Sleep Apnea STOP Sleep Apnea - billing representative: STOP Sleep Apnea - billing representative Hx Hypertension No 06/16/25 12:54 Hx Sleep Apnea No 06/16/25 12:54 CPAP BIPAP Do you snore loudly (louder No 06/16/25 12:54 than talking or can be heard Do you often feel tired/ No 06/16/25 12:54 fatigued/ sleepy during daytime? Has anyone observed you stop No 06/16/25 12:54 breathing during sleep? STOP Results Negative 06/16/25 12:54 QUESTION #5 FULL TEXT : Do you snore loudly (louder than talking or can be heard through closed doors)? Any additional information?: No Tobacco Use History Tobacco Use History - billing representative: Tobacco Use History - billing representative Tobacco Use Non-smoker 05/14/25 14:47 Smoking Status Never smoker 06/16/25 12:54 Hx Tobacco Use No 06/16/25 12:54 Years Smoking Packs Smoked per Day Smoking Cessation Date was within the last 15 years Hx Smoking Cessation Date Hx Smoking Cessation Counseling Any additional information?: No Hematologic Medial History Hematologic Hx - billing representative: Hematologic Medical Hx - software designer Hx of Blood Transfusion No 06/16/25 12:54 Hx of Transfusion in last 3 No 06/16/25 12:54 Months Date of Last Transfusion (if within last 3 months) Ever experience any problems No 06/16/25 12:54 with transfusion(s)? Specify any problems Hx of Preganancy in last 3 N/A 06/16/25 12:54 Months Nurse Filling Out Transfusion NBUCHER 06/16/25 12:54 & Questions: Date: 06/16/25 06/16/25 12:54 Time: 12:56 06/16/25 12:54 Patient unable to answer at this time (ie. confused, unrespo Any additional information?: No /Reproduction History /Reproductive History - billing representative: /Reproductive Hx- billing representative Hx Now Yes 06/16/25 12:54 Gestational Age (in weeks): EDC: Hx Hx Para Hx Section SAB No 06/16/25 12:54 Does the father of the baby or No 06/16/25 12:54 his family experience fever w Father of the baby Malignant Hypertension history comment Any additional information?: No Active Medications Active Medications: Current Medications Generic Name Dose Route Start Last Admin Trade Name Freq PRN Reason Stop Dose Admin Lactated Ringer's 1,000 mls @ 15 mls/hr 06/21/25 10:00 06/21/25 10:27 IV 15 mls/hr .Q48H ABDELRAHMAN Administration PFSH Medical History (Updated 06/17/25 @ 13:[address] Jn Fink MD) Wears contact lenses Wears glasses Migraine headache Non-smoker History of edema Seasonal allergies Ovarian cyst Active labor at term Infertility Thyroid disorder Superficial varicosities Macrosomia Obesity affecting Supervision of normal first Anxiety Home Medications ?Medication ?Instructions ?Recorded ?Last Taken ?Type multivit-min no.71-iron fum 28 1 cap PO DAILY 02/18/25 Unknown History mg-folate no.1 1 mg-dha 300 mg capsule (PNV-[place]) ondansetron 4 mg disintegrating 4 mg PO Q8H PRN nausea and 05/31/25 Unknown Rx tablet vomiting #30 tabs Allergy/AdvReac Type Severity Reaction Status Date / Time tetracycline Allergy Mild Hives Verified 06/21/25 10:20 Family History Father Diabetes CAD (coronary artery disease) Hypertension Grandfather Kidney disease Paternal Cancer Maternal- skin Parkinsons disease Paternal Mother Cancer skin Surgical History Delivery by section Social History adopted: No household members: spouse and children housing: house number of children: 1 current occupational status: employed current occupation: [employer] current occupational exposures/hazards: No pets and animals: Yes (avoid litter box) pets and animals: cat(s) and dog(s) history of recent travel: No sexually active: Yes Smoking Status: Never smoker alcohol intake: current alcohol intake frequency: a few times a month details: not while substance use type: does not use well-balanced diet: daily or most days caffeine: Yes Type: carbonated beverages Number of servings: 1 eating out: 1-3 times/week during the past year weight has: decreased > 10 lbs what type of physical activity do you participate in: weight training frequency: 5-6 times per week duration: 15-30 minutes/day armando/synagogue: [employer] seatbelt use: always do you feel safe at home: Yes additional social history: Spouse-Jigar- Schareedfler Review of Systems (Anesthesia) ROS Narrative System reviewed and no additional complaints, except as documented. Physical Exam Const alert and oriented x3 Orientation / Consciousness: awake Nutritional Appearance: obese HEENT dentition normal Neck full ROM Resp normal respiratory effort, normal air movement and clear to auscultation bilaterally Cardio regular rate, regular rhythm and no murmurs
--- NOTE | 2025-06-21 11:48 | HP.PCM_ITS ---
History and Physical Date of Admission: 06/21/25 Date of Service: 06/16/25 MR#: [id number] Acct: [id number] Name: MECHELLE JAEGER Rep #: [id number] : 1995 Provider: Dr. Jn Fink MD Age/Sex: 30/F Location: [facility] Status: Signed Intake Vital Signs 05/26/2515:31 06/02/2519:33 06/16/2508:05 Height 5 ft 5 in 5 ft 5 in 5 ft 5 in Weight: 243 lb 4 oz BMI 40.4 BP 138/82 H Blood Pressure Location Lt brachial Position Sitting Respiration 18 Pulse 104 H Pulse Source Monitor Temp 97.2 F L Temp Source Temporal Pulse Oximetry (%) 100 Oxygen Delivery Method room air Intake Visit Reasons: DISCUSS EUA Chief Complaint: discuss eua Is patient in pain?: Yes Allergies tetracycline Allergy (Mild, Verified 06/16/25 12:54) Hives Medications ?Medication ?Instructions ?Recorded ?Confirmed ?Type multivit-min no.71-iron fum 28 1 cap PO DAILY 02/18/25 06/16/25 History mg-folate no.1 1 mg-dha 300 mg capsule (PNV-[place]) ondansetron 4 mg disintegrating 4 mg PO Q8H PRN nausea and 05/31/2506/07 Rx tablet vomiting #30 tabs PFSH Medical History (Updated 06/17/25 @ 13:[address] Jn Fink MD) Wears contact lenses Wears glasses Migraine headache Non-smoker History of edema Seasonal allergies Ovarian cyst Active labor at term Infertility Thyroid disorder Superficial varicosities Macrosomia Obesity affecting Supervision of normal first Anxiety Surgical History Delivery by section Family History Father Diabetes CAD (coronary artery disease) Hypertension Grandfather Kidney disease Paternal Cancer Maternal- skin Parkinsons disease Paternal Mother Cancer skin Social History adopted: No household members: spouse and children housing: house number of children: 1 current occupational status: employed current occupation: [employer] current occupational exposures/hazards: No pets and animals: Yes (avoid litter box) pets and animals: cat(s) and dog(s) history of recent travel: No sexually active: Yes Smoking Status: Never smoker alcohol intake: current alcohol intake frequency: a few times a month details: not while substance use type: does not use well-balanced diet: daily or most days caffeine: Yes Type: carbonated beverages Number of servings: 1 eating out: 1-3 times/week during the past year weight has: decreased > 10 lbs what type of physical activity do you participate in: weight training frequency: 5-6 times per week duration: 15-30 minutes/day armando/yazidi: Sabianism seatbelt use: always do you feel safe at home: Yes additional social history: Spouse-Melina Johnson Female Reproductive History Menstrual Ab spontaneous: 1 HPI HPI HPI: Patient is a 30-year-old female who is known to me from a prior I&D procedure performed 07/14/2024 for a perirectal abscess as well as to this clinic for the same issue. She presents today with complaints of ongoing oozing of green drainage. She shares that her has observed a gap and has been pressing the area resulting in a popping sound. She states that this seems to occur repetitively every 2 days. She denies experiencing any fevers or chills at home. She confirms that her bowels are occurring pretty regularly. I asked for more the details she states that they are occurring at least daily with minimal straining. She has gone away from using sitz baths. Outside of this immediate issue, she reports that her with twins appears to be progressing appropriately and there have been no recent concerns. She shares that she is now well into her second trimester with the gestation. ROS General General: Yes weight change and fatigue; No appetite, colon cancer, breast cancer or weakness HEENT HEENT: No difficulty swallowing, eye injury, eye surgery, swollen glands or hoarseness Endo Endocrine: No thyroid disease, diabetes mellitus, thyroid cancer, Hair loss, heat intolerance or cold intolerance Skin Skin: No rash or changing moles Musc Musculoskeletal: Yes back problems and arthritis; No rheumatoid arthritis, gout or joint pain Cardio Cardiovascular: No murmur, pacemaker, heart disease, atrial fibrillation, high blood pressure, heart attack, heart stent, palpitations, shortness of breath with exertion or chest pain Psych Psychiatric: No depression, anxiety or hearing voices Resp Respiratory: No shortness of breath, No sleep apnea, No cough, No COPD, No asth ma, No emphysema and No wheezing Gastro Gastrointestinal: No abdominal pain, Yes nausea or vomiting, No diarrhea, No constipation, No blood in stool, No acid reflux, No hemorrhoids, No ulcers, No gallbladder problem and No black,tarry stools Jonas Hematologic: No blood thinners, No blood disorders, No bleeding, No anemia and No blood clots Neuro Neurologic: No system reviewed and no additional complaints, except as documented, No as per HPI, No abnormal gait, No abnormal hearing, No abnormal movements, No abnormal speech, No behavioral changes, No burning sensations, No confusion, No convulsions, No disequilibrium, No dizziness, No localized weakness, No frequent falls, No headache(s), No lack of coordination, No loss of vision, No memory loss, Yes numbness, No other visual disturbances, No radicular pain, No restless legs, No sensory deficit, No syncope, Yes tingling, No tremor(s), No weakness and No other ROS Narrative 17 weeks Exam Const General: cooperative and anxious Other: Clearly Resp Effort & Inspection: normal respiratory effort GI Other: Draining sinus tract with erythema surrounding the opening located in the right posterior position. Drainage is milky white to green in character Assessment and Plan Assessment and Plan (1) Evelyn-rectal abscess: Status: Acute Comment: Patient is a 30-year-old female who presents with recurrent versus persistent perirectal abscess status post 2 prior I&D procedures. She reports progressive pain and decreased drainage at today's visit. However, on exam today I do find some spontaneous drainage of purulent material. She denies any signs or symptoms of sepsis. I held a conversation with her and her regarding the need to eventually proceed for exam under anesthesia to determine if there is an internal opening representing a fistula in ano to avoid the scenario of recurrent episodes of abscesses. She confirms understanding. To try to bring relief I offered to try to promote drainage of the area through a third incision and drainage procedure. Patient tolerated this with minimal discomfort after a generous local block. Cultures were obtained of the drainage but given her concurrent and very minimal volume abscess cavity I concluded an additional course of antibiotics was not indicated. Update 06/17/2025: Unfortunately patient has had recurrent issues with purulent drainage from perirectal space. Unclear if she is reforming abscesses or if she is simply manifesting a fistula in ano. Today's exam is consistent with the latter diagnosis. I discussed with her at length options for proceeding with this working diagnosis to include repeat I&D and antibiotics versus proceeding for exam under anesthesia with intent to place a seton drain. I shared that there is some risk with general anesthesia in but second trimester is optimal if it is deemed necessary. Patient is presently in that second trimester and strongly wishes to move forward with something more definitive. Additionally we discussed the potential risk for systemic sepsis if she forms another abscess and the potential risk this could pose to her unborn children. Lastly, I discussed a plan to proceed with drain placement now during her and then seek consultation with colorectal surgery for more definitive management of this issue . She acknowledges understanding. Plan: - Presently draining fistula in ano. No present indication for antibiotics ? I will seek joint availability for proceeding for exam under anesthesia with probable seton placement. Patient will require perioperative monitoring. For the interim she is reminded of the red flag warning signs that should prompt her to move for emergent evaluation. Plan Note was completed with the assistance of AI technology and ambient listening. Patient provided their consent for use of this technology during the duration of their visit. Provider has reviewed dictation prior to incorporation within the electronic medical record. I have examined the patient the following changes are noted: Patient presents today in stable state of health but requests review of the procedure details as she states she forgot some of the information to share with her . These were provided and I shared that we would proceed as safely as we could given her concurrent . I shared some of the sedation issues would be left to joint conversation between anesthesia and myself as dependent on our ability to obtain a good exam of her anal canal. We did have a formal ultrasound done prior to today's encounter which was reportedly reassuring for her and we will plan for perioperative heart tone monitoring. Consents were confirmed and will now proceed to the operating room for exam under anesthesia with planned seton drain placement if we are able to identify an internal opening for a fistula.
--- NOTE | 2025-06-21 12:56 | PCM.OPRPT ---
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 Surgery/Procedure Performed: Exam under anesthesia with seton placement manager ct: Yes Business Continuity Management Director: Casimiro Echols Tasks completed by mobile sales assistant: Retracting Type of Anesthesia: MAC/Supplemental RN Documented Start/Stop Times: Operation Date: 06/21/25 11:30 Case Time Into Pre-Op 06/21/25 09:51 Anesthesia Start 06/21/25 11:55 Into Room 06/21/25 11:55 Procedure Start 06/21/25 12:22 Procedure End 06/21/25 12:53 Anesthesia End 06/21/25 13:00 Out of Room 06/21/25 13:00 Into Recovery 06/21/25 13:02 Into Phase II Recovery 06/21/25 13:31 Out of Recovery 06/21/25 13:31 Out of Phase II 06/21/25 13:56 Procedure Start Time: 12:22 Procedure Stop Time: 12:53 Select all DRAINS/GRAFTS/IMPLANTS that apply: Drains (Seton drain) Drain details: Small red vessel loop Estimated Blood Loss: 3 Specimen collected: No Description of surgery: After appropriate identification in the preoperative holding area, confirming reassuring ultrasound on patient's gestation, in reviewing a escalating anesthesia plan, the patient was brought to the operating room where she was positioned supine. She was administered preoperative antibiotics and administered sedation. She was then repositioned in lithotomy with leg holders. A bump was placed under her right side to offload compression of her cava with consideration to her gravid uterus. Her perineal area and perianal area were prepped and draped. A formal timeout was conducted to confirm the patient and the procedure to be performed. I began with a intersphincteric and pudendal local block, however, this stimulus to the patient produced a fair amount of movement even under sedation so decision was made jointly with anesthesia to proceed with LMA placement and use of a MAC so the procedure could continue safely. Once this anesthetic change was completed I completed my block with 0.5% bupivacaine plain (total administration of 20 mL). The procedure was begun with insertion of a lubricated Pollo-[place]a Maria retractor. This retractor was oriented in such a way as to expose the inner aspect of the anal canal subjacent the patient's chronic wound. I then inserted a 14-gauge angiocatheter attached to a syringe of hydrogen peroxide into the patient's right posterior sinus tract and was able to visualize bubbling peroxide within the posterior anal canal signaling the presence of a anal fistula. I then used a lacrimal probes to probe the wound found the probe passed with no resistance into the opening where the peroxide had been visualized egressing. A silk tie was tied to the end of this probe and threaded through the fistula tract. Then a small vessel loop was tied onto the silk and pulled into position in the fistula tract. The vessel loop was doubled back upon itself so that it loosely spun within the fistula tract and was tied into a loop configuration with 4 interrupted 3-0 silk sutures. Excess was trimmed. The fistula then was reexamined and it did appear to take a transphincteric course. There was no bleeding and case was then concluded. Patient was fitted with a pad and mesh panties for a dressing and she was awakened and transferred to PACU for ongoing recovery. Surgical Findings: ? Instillation of 20 mL 0.5% bupivacaine plain as a intersphincteric and pudendal nerve block ? Fistula tracking directly to posterior midline appears transsphinc Complications Complications: No Admit VTE Documentation VTE Mechan Device Prophylaxis: SCD's
--- NOTE | 2025-06-21 13:00 | EX.PCM.DISCH ---
Discharge Instructions Diet Discharge Diet: - (High Fiber Diet) Activity Discharge Activity: May Take a Tub Bath (Continue daily sitz baths) Lifting Restrictions: 15 Dressing / Incision Call your doctor if your incision/area has: Continuous Slow Oozing, Sudden Increased Bleeding, Increased Redness and Foul Smelling Discharge Call your doctor if you observe: Fever of 101 or Higher Remove Dressing in: 1 day Cleanse incision/area with: Soap & Water Follow Up Care Please Follow Up With: Jn Fink MD When: 7-10 days postop Test Results: Test results from this visit will be discussed in further detail at your follow-up appointment, if applicable. Discharge Plan Admission Primary Reason for Your Visit: anal fistula Attending Provider: Jn Fink Primary Care Provider: Stacey Santacruz Instructions Print Language: Albanian Discharge Orders/Prescriptions Prescriptions: Continued PNV-[place] 28-1-300 mg capsule 1 cap PO DAILY ondansetron 4 mg tablet,disintegrating 4 mg PO Q8H PRN (Reason: nausea and vomiting) Qty: 30 0RF Referrals / Follow Up: Stacey Santacruz MD [Primary Care Provider, Family Practice] Disposition Disposition (needs filled in before D/C Order can be placed): Home, Self Care
--- NOTE | 2025-06-21 13:04 | PCM.POST.ANE ---
Anesthesia: Postop Eval I Current Vital Signs Temperature: 96.8 F Pulse Rate: 70 Blood Pressure: 120/60 Respiratory Rate: 20 Pulse Ox: 99 Oxygen Delivery Method: Simple Mask Oxygen Flow Rate (L/min): 6 Assessment Airway patent: Yes Spontaneous unlabored respirations: Yes Mental status: Awake nausea: No Vomiting: No Anesthesia Complication: No Fluid Hydration Crystalloid volume administer (ml): 500 Total IV fluid infused: 500 Progress Note Anesthesia document: Postop Eval 1 completed: Yes
--- NOTE | 2025-06-21 15:02 | POSTOPAN2_ITS ---
Anesthesia Postop Eval I Sum Postop Eval Completion status Anesthesia document: Postop Eval 1 completed: Yes Anesthesia Postop Eval I Summary Anesthesia Postop Eval I Summary: Anesthesia Postop Eval I: Assessment Summary Airway patent Yes 06/21/25 13:05 PLANTING MATERIAL UNLOADER.[email or web address] Spontaneous unlabored Yes 06/21/25 13:05 PLANTING MATERIAL UNLOADER.JCLI respirations Mental status Awake 06/21/25 13:05 PLANTING MATERIAL UNLOADER.JCLI nausea No 06/21/25 13:05 PLANTING MATERIAL UNLOADER.JCLI Vomiting No 06/21/25 13:05 PLANTING MATERIAL UNLOADER.JCLI Anesthesia Postop Eval I: Fluid Summary Crystalloid volume administer 500 06/21/25 13:05 PLANTING MATERIAL UNLOADER.JCLI (ml) Colloids volume administered ( ml) Blood Product volume administered (ml) Total IV fluid infused 500 06/21/25 13:05 PLANTING MATERIAL UNLOADER.JCLI Anesthesia Postop Eval I: Summary Notes Anesthesia Complication No 06/21/25 13:05 PLANTING MATERIAL UNLOADER.LI Anesthesia Complication Comment: Post-operative progress note Anesthesia: Postop Eval II Evaluation Mental status: Awake and Calm Pain Level: 0 nausea: No Vomiting: No Complications Anesthesia Complication: No
--- NOTE | 2025-06-21 15:02 | PCM.POSTANE2 ---
Anesthesia Postop Eval I Sum Postop Eval Completion status Anesthesia document: Postop Eval 1 completed: Yes Anesthesia Postop Eval I Summary Anesthesia Postop Eval I Summary: Anesthesia Postop Eval I: Assessment Summary Airway patent Yes 06/21/25 13:05 [email or web address] Spontaneous unlabored Yes 06/21/25 13:05 [email or web address] respirations Mental status Awake 06/21/25 13:05 [email or web address] nausea No 06/21/25 13:05 [email or web address] Vomiting No 06/21/25 13:05 [email or web address] Anesthesia Postop Eval I: Fluid Summary Crystalloid volume administer 500 06/21/25 13:05 [email or web address] (ml) Colloids volume administered ( ml) Blood Product volume administered (ml) Total IV fluid infused 500 06/21/25 13:05 [email or web address] Anesthesia Postop Eval I: Summary Notes Anesthesia Complication No 06/21/25 13:05 [email or web address] Anesthesia Complication Comment: Post-operative progress note Anesthesia: Postop Eval II Evaluation Mental status: Awake and Calm Pain Level: 0 nausea: No Vomiting: No Complications Anesthesia Complication: No
== END 2025-06-21 13:58 | disposition home or self-care (01) ==
LOC: SDC 09:51 → AC 09:51
PROVIDERS: PCP Family Medicine; Referring Provider Surgery; Visit Provider Surgery
PROC: (CPT 46020; principal; 2025-06-21 11:15)
DX: O99.612 Diseases of the digestive system complicating pregnancy, second trimester (principal); K60.30 Anal fistula, unspecified; O30.042 Twin pregnancy, dichorionic/diamniotic, second trimester; O34.219 Maternal care for unspecified type scar from previous cesarean delivery; Z3A.17 17 weeks gestation of pregnancy
CPT/HCPCS: 46020; 00902; 76815; 76816; C1758; J0525; J0666; J2405